=== PATIENT | female | born 1955 | race Caucasian/White ===

== ENCOUNTER 2023-03-24 12:33 | Outpatient (CLI) | payer MEDICARE, SELFPAY | END 2023-03-24 12:34 | disposition home or self-care (01) | LOC: AMB 03-26 10:10 | PROVIDERS: PCP Family Medicine; Visit Provider Family Medicine | DX: R53.1 Weakness (principal) | CPT/HCPCS: A0998 ==

== ENCOUNTER 2023-03-28 12:58 | Observation (INO) | payer MEDICARE, SELFPAY ==
[2023-03-28] VITALS (11 sets, daily range): BP systolic 129–157; BP diastolic 75–104; PULSE 91–99; RESP 20–24; TEMP 36.3–36.8; O2SAT 93–97
--- NOTE | 2023-03-28 13:15 | ED_ITS ---
HPI - General Adult General Chief complaint: Skin/Abscess/Foreign Body Stated complaint: tailbone pain Time Seen by Provider: 03/28/23 13:01 Source: patient Mode of arrival: EMS Limitations: no limitations History of Present Illness HPI narrative: 67-year-old female with a past medical history significant for morbid obesity, chronic venous stasis ulcerations, history of osteomyelitis of the coccyx, anxiety, chronic pain syndrome on chronic morphine therapy, bilateral lower extremity lymphedema presenting today for buttocks pain. She states that the pain is been present for about a month but in the last couple days has become unbearable. She denies fevers or chills. No nausea or vomiting. No changes in her bowel movements. No urinary symptoms. She has not fallen. She denies any trauma to the area. Related Data Home Medications Medication Instructions Recorded Confirmed acetaminophen 500 mg capsule 1,000 mg PO TID PRN 03/28/23 03/28/23 ammonium lactate 12 % lotion (Skin 1 applic topical BID PRN 03/28/23 03/28/23 Treatment) ascorbic acid (vitamin C) 1,000 mg 1 g PO DAILY 03/28/23 03/28/23 capsule cholecalciferol (vitamin D3) 1,250 1,250 mcg PO 2XW 03/28/23 03/28/23 mcg (50,000 unit) capsule (Weekly-D) citalopram 20 mg tablet 20 mg PO DAILY 03/28/23 03/28/23 diphenhydramine HCl 25 mg capsule 25 mg PO Q6H PRN 03/28/23 03/28/23 (Allergy (diphenhydramine)) ferrous sulfate 325 mg (65 mg 325 mg PO DAILY 03/28/23 03/28/23 iron) tablet,delayed release furosemide 20 mg tablet 20 mg PO DAILY 03/28/23 03/28/23 lidocaine 4 % topical cream 1 applic topical DAILY PRN 03/28/23 03/28/23 dressing change lorazepam 0.5 mg tablet 0.5 mg PO BID PRN 03/28/23 03/28/23 morphine 15 mg tablet,extended 15 mg PO BID PRN 03/28/23 03/28/23 release nystatin 100,000 unit/gram topical 1 applic topical BID 03/28/23 03/28/23 powder ([facility]) ondansetron 4 mg disintegrating 4 mg PO Q8H PRN 03/28/23 03/28/23 tablet polyethylene glycol 3350 17 17 g PO DAILY PRN 03/28/23 03/28/23 gram/dose oral powder (Miralax) potassium chloride 10 mEq 10 meq PO DAILY 03/28/23 03/28/23 tablet,extended release sennosides 8.6 mg capsule (senna) 8.6 - 17.2 mg PO DAILY PRN 03/28/23 03/28/23 silver sulfadiazine 1 % topical 1 applic topical DAILY 03/28/23 03/28/23 cream ([facility]) triamcinolone acetonide 0.1 % 1 applic topical BID 03/28/23 03/28/23 topical cream Allergies Allergy/AdvReac Type Severity Reaction Status Date / Time amoxicillin Allergy Unknown Verified 03/28/23 13:05 buspirone [From BuSpar] Allergy Unknown Verified 03/28/23 13:16 cephalexin [From Keflex] Allergy Unknown Verified 03/28/23 13:15 doxycycline Allergy Unknown Verified 03/28/23 13:15 latex Allergy Unknown Verified 03/28/23 13:15 lisinopril Allergy Unknown Verified 03/28/23 13:15 Penicillins Allergy Unknown Verified 03/28/23 13:15 Sulfa (Sulfonamide Allergy Unknown Verified 03/28/23 13:15 Antibiotics) Review of Systems Status of ROS: Reports: 10 or more systems reviewed and unremarkable except as noted in History and below [facility] Medical History (Updated 03/28/23 @ 20:55 by Ann Grewal MD) Stage IV pressure ulcer of sacral region ?L89.154 - Pressure ulcer of sacral region, stage 4 (ICD-10) Chronic pain ?G89.29 - Other chronic pain (ICD-10) Recurrent depression ?F33.9 - Major depressive disorder, recurrent, unspecified (ICD-10) Panic attacks ?F41.0 - Panic disorder [episodic paroxysmal anxiety] (ICD-10) Insomnia ?G47.00 - Insomnia, unspecified (ICD-10) Restless legs syndrome ?G25.81 - Restless legs syndrome (ICD-10) Urge incontinence of urine ?N39.41 - Urge incontinence (ICD-10) Controlled substance agreement signed ?Z79.899 - Other longterm (current) drug therapy (ICD-10) Vitamin D deficiency ?E55.9 - Vitamin D deficiency, unspecified (ICD-10) MRSA (methicillin resistant staph aureus) culture positive (~12/05/15) ?Z22.322 - Carrier or suspected carrier of Methicillin resistant Staphylococcus aureus (ICD-10) Left ureteral stone (~12/11/15) ?N20.1 - Calculus of ureter (ICD-10) CKD (chronic kidney disease), stage III ?N18.30 - Chronic kidney disease, stage 3 unspecified (ICD-10) Acute osteomyelitis of coccyx (~08/2015) ?M46.28 - Osteomyelitis of vertebra, sacral and sacrococcygeal region (ICD- 10) Ulcers of both lower extremities with fat layer exposed ?L97.912 - Non-pressure chronic ulcer of unspecified part of right lower leg with fat layer exposed (ICD-10) ?L97.922 - Non-pressure chronic ulcer of unspecified part of left lower leg with fat layer exposed (ICD-10) Iron deficiency 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 ?D50.1 - Sideropenic dysphagia (ICD-10) Acute kidney injury (~01/2015) ?N17.9 - Acute kidney failure, unspecified (ICD-10) Dysthymia ?F34.1 - Dysthymic disorder (ICD-10) Bilateral leg weakness ?R29.898 - Other symptoms and signs involving the musculoskeletal system (ICD-10) Chronic acquired lymphedema ?I89.0 - Lymphedema, not elsewhere classified (ICD-10) Chronic, continuous use of opioids ?F11.90 - Opioid use, unspecified, uncomplicated (ICD-10) Venous stasis ulcer of thigh with fat layer exposed ?I83.001 - Varicose veins of unspecified lower extremity with ulcer of thigh (ICD-10) ?L97.102 - Non-pressure chronic ulcer of unspecified thigh with fat layer exposed (ICD-10) Elevated TSH ?R79.89 - Other specified abnormal findings of blood chemistry (ICD-10) DJD (degenerative joint disease) of knee ?M17.9 - Osteoarthritis of knee, unspecified (ICD-10) Morbid obesity ?E66.01 - Morbid (severe) obesity due to excess calories (ICD-10) Essential hypertension ?I10 - Essential (primary) hypertension (ICD-10) Surgical History (Updated 03/28/23 @ 16:34 by Rocio Jorge MD) S/P debridement ?Z98.890 - Other specified postprocedural states (ICD-10) S/P ureteral stent placement ?Z96.0 - Presence of urogenital implants (ICD-10) Family History (Updated 03/28/23 @ 16:36 by Rocio Jorge MD) Brother Diabetes Cardiovascular disease Father Cardiovascular disease High blood pressure Sister High cholesterol High blood pressure Mother Dementia Social History (Updated 03/28/23 @ 17:27 by Rocio Jorge MD) Narrative: Lives independently. 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 Smoked an average of 0.3 packs per day for 2 years, quit in 1970. Denies alcohol use. Denies recreational drug use. Wishes to be full code. What is your current living situation?: I presently have a place to live Problems where you live: no known problems Problems where you live details: none In the past 12 months, utilities in danger of being shut off: no In past 12 months, lack of transportation kept you from medical appts, meetings, work, or getting things needed for daily living: yes In the past 12 mos, have been you worried that your food would run out before you had money to buy more?: never true In the past 12 mos, the food you bought just didn't last and you didn't have money to buy more?: never true Highest level of school completed/degree received: 11th grade Smoking Status: Unknown if ever smoked How often do you have a drink containing alcohol: never AUDIT-C Alcohol total score: 0 Non-prescribed substance use: denies use Caffeine: No How often does anyone, including family, friends and others, physically hurt you : never How often does anyone, including family, friends and others, insult or talk down to you: sometimes How often does anyone, including family, friends and others, threaten you with harm: never How often does anyone, including family, friends and others, scream or curse at you: sometimes service: No Exam Narrative: Exam Narrative: Morbidly obese, well-developed patient, tearful. Alert and oriented. Answers questions appropriately. Mood is erratic - patient is tearful 1 minute and laughing next. Patient speaks in full sentences without needing to catch their breath. Patient repeats her questions multiple times. HEENT: Normocephalic atraumatic. Pupils are equally round reactive to light. Extraocular muscles are intact. Conjunctivae are moist without any icterus noted. Moist mucous membranes. Cardiovascular: Heart is regular rate and rhythm Lungs: Clear to auscultation bilaterally. Patient takes deep breaths without any discomfort. Abdomen: Soft and nontender. Very large pannus. Extremities: Bilateral lower extremities show [place] lymphedema and extremely dry and flaky skin. Patient has stage IV ulcers on bilateral calves. Some necrotic tissue present. : Patient has stage I pressure ulcer over the majority of the buttocks. Several areas with stage II pressure ulcers. Patient has a stage IV ulcer at the coccyx were a large hole is present. There is no drainage from this area. I do not see any evidence of acute infection. Patient has on depends that her soaked in urine. The skin in the entire area is moist and macerated. Const: Vital Signs, click to edit/add: Vital Signs - 24 hr 03/28/23 13:02 03/28/23 13:57 03/28/23 14:00 Temperature 97.3 F L Pulse Rate 91 99 Pulse Rate [Pulse Oximeter] 94 Respiratory Rate 24 Blood Pressure Blood Pressure [Ri ght Upper Arm] 145/104 H Pulse Oximetry 97 95 96 Oxygen Delivery Me thod Room Air Room Air 03/28/23 14:01 03/28/23 14:15 03/28/23 14:56 Temperature Pulse Rate 99 97 98 Pulse Rate [Pulse Oximeter] Respiratory Rate Blood Pressure 129/85 157/85 H Blood Pressure [Ri ght Upper Arm] Pulse Oximetry 94 93 96 Oxygen Delivery Me thod 03/28/23 14:57 03/28/23 15:00 03/28/23 15:02 Temperature Pulse Rate 98 98 99 Pulse Rate [Pulse Oximeter] Respiratory Rate Blood Pressure 155/94 H Blood Pressure [Ri ght Upper Arm] Pulse Oximetry 96 96 96 Oxygen Delivery Me thod 03/28/23 15:15 Temperature Pulse Rate 97 Pulse Rate [Pulse Oximeter] Respiratory Rate Blood Pressure Blood Pressure [Ri ght Upper Arm] Pulse Oximetry 96 Oxygen Delivery Me thod Course Course ED Course: Patient is cleaned by nursing staff. Labs were drawn: Hemoglobin low at 9.4, in no elevated white cell count. Electrolytes are within normal limits. Normal lactate at 1.2. CRP elevated at 6.5. Abdomen pelvis CT is done to assess how deep patient's ulcers are. CT does not show any evidence of deep infection. Shows area of potential panniculitis. Vital Signs Vital signs: Initial Vital Signs Temperature 97.3 F L 03/28/23 13:02 Temperature Source Temporal Artery Scan 03/28/23 13:02 Pulse Rate 94 03/28/23 13:02 Respiratory Rate 24 03/28/23 13:02 Blood Pressure 145/104 H 03/28/23 13:02 Blood Pressure Mean 117 H 03/28/23 13:02 Blood Pressure Position Sitting 03/28/23 13:02 Pulse Oximetry 97 03/28/23 13:02 Oxygen Delivery Method Room Air 03/28/23 13:02 Vital Signs Temperature 97.3 F L 03/28/23 13:02 Pulse Rate 94 03/28/23 13:02 Respiratory Rate 24 03/28/23 13:02 Blood Pressure 145/104 H 03/28/23 13:02 Pulse Oximetry 97 03/28/23 13:02 Oxygen Delivery Method Room Air 03/28/23 13:02 Temperature 98.3 F 03/28/23 17:25 Pulse Rate 94 03/28/23 17:25 Respiratory Rate 20 03/28/23 17:25 Blood Pressure 135/75 03/28/23 17:25 Pulse Oximetry 94 03/28/23 17:25 Oxygen Delivery Method Room Air 03/28/23 17:25 Medical Decision Making MDM Narrative Medical decision making narrative: 67-year-old female with multiple decubitus pressure ulcers. Discussed the patient with , who recommended debridement and cleaning of multiple ulcers in the OR. I discussed this at length with the patient today. We discussed discharge versus clean out in the OR. At this point patient needs of 1 person assist even get out of the chair and she tells me that she can not get out of the car when she gets home. I discussed that perhaps the best course for be for her to stay the night in the hospital and she states that she would like that very much because she ?does not get pampered that often?. We discussed the clean out in the OR. Patient is in agreement with this plan had no other questions. Patient will be admitted afterwards. Medical Records Medical records reviewed: Yes I reviewed the patient's medical records Lab Data Lab results reviewed: Yes I reviewed the patient's lab results Labs: Lab Results 03/28/23 Range/Units 13:45 WBC 6.91 (4.50-11.00) K/uL RBC 3.89 L (4.00-5.20) m/uL Hgb 9.4 L (12.0-16.0) gm/dL Hct 33.0 (33.0-51.0) % MCV 85 (80-100) fL MCH 24 L (26-34) pg MCHC 29 L (32-36) gm/dL RDW Coeff of Vilma 16.2 H (11.5-15.5) % Plt Count 316 (140-440) K/uL Neut % (Auto) 69.3 (42.0-72.0) % Lymph % (Auto) 19.5 L (20-44) % Towns % (Auto) 6.5 (0.0-11.0) % Eos % (Auto) 3.6 (0.0-7.0) % Baso % (Auto) 0.1 (0.0-3.0) % Neut # (Auto) 4.78 (1.7-7.0) K/uL Lymph # (Auto) 1.30 (0.90-2.90) K/uL Towns # (Auto) 0.40 (0.00-0.90) K/UL Eos # (Auto) 0.25 (0.00-0.50) K/uL Baso # (Auto) 0.01 (0.00-0.30) K/uL Abs Immat Gran (auto) 0.07 (0.00-0.30) K/uL Imm/Tot Granulo (auto) 1.0 % ESR 74 H (2-20) mm/hr Sodium 137 (135-149) mmol/L Potassium 4.7 (3.6-5.1) mmol/L Chloride 101 (96-114) mmol/L Carbon Dioxide 28 (20-32) mmol/L Anion Gap 8 (7-15) mEq/L BUN 15 (7-30) mg/dL Creatinine 1.1 (0.5-1.5) mg/dL Estimated GFR 55 ml/min Glucose 100 (60-115) mg/dL Lactate 1.2 (0.5-1.9) mmol/L Calcium 8.7 (8.4-10.6) mg/dL Total Bilirubin 0.5 (0.1-1.5) mg/dL Direct Bilirubin 0.2 (0.0-0.5) mg/dL AST 26 (12-35) U/L ALT 9 (4-35) U/L Alkaline Phosphatase 83 (40-150) U/L C-Reactive Protein 6.5 H (0.5-1.0) mg/dL Total Protein 8.6 H (6.0-8.3) g/dL Albumin 3.8 (3.3-5.0) g/dL Imaging Data CT scan - abdomen: Attestation: I have reviewed the pertinent imaging results. Radiologist's impression: BUTTOCKS INFECTION, ULCERATION TECHNIQUE: CT abdomen and pelvis acquired with 135 cc Isovue 370 IV contrast. COMPARISON: None. FINDINGS: Lower chest: The visualized lower lungs are aerated. No pleural or pericardial effusion. ABDOMEN: Liver: Exclusion of the liver dome. Normal enhancement. Gallbladder and biliary: Normal gallbladder without radiopaque stone. Normal caliber bile ducts. Spleen: Normal size and enhancement. Pancreas: Normal enhancement without peripancreatic inflammatory changes or ductal dilatation. Adrenal glands: Normal adrenal glands. Kidneys and ureters: Normal enhancement. No radio-opaque calculi. No hydroureteronephrosis. Likely peripelvic cysts. 2 millimeter nonobstructing left renal stone. GI tract: The stomach is relatively decompressed. Normal caliber small and large bowel loops. Appendix is not definitively visualized. Colonic diverticulosis without diverticulitis portions of the colon are excluded on the superior field view. Vascular structures: Normal caliber abdominal aorta. Lymph nodes: Bilateral inguinal and pelvic sidewall lymphadenopathy. Peritoneum: No free air, free fluid, or focal drainable fluid collection. PELVIS: Genitourinary system: Urinary bladder is decompressed. Age-appropriate uterus. SKELETAL STRUCTURES AND SOFT TISSUES: No discrete subcutaneous gas or focal drainable subcutaneous fluid collection in the region of the buttocks. No definite gluteal region subcutaneous inflammatory stranding. Left lower anterior subcutaneous edema/stranding abutting the patient`s pannus, axial images 101- 154, likely panniculitis. Lumbar spondylosis. IMPRESSION: 1. No discrete subcutaneous gas or focal drainable subcutaneous fluid collection in the region of the buttocks. No definite gluteal region subcutaneous inflammatory stranding. 2. Left lower anterior subcutaneous edema/stranding abutting the patient`s pannus, likely panniculitis. 3. Nonobstructing left-sided nephrolithiasis. Discharge Plan Discharge Clinical Impression: Pressure ulcer Patient Disposition: Admitted As Observation Condition: Unchanged Activity Level: No Restrictions Discharge Diet: Regular
--- NOTE | 2023-03-28 13:23 | CRLHL7_ITS ---
For Patients: As a result of the Century Cures Act, medical imaging exams and procedure reports are released immediately into your electronic medical record. You may view this report before your referring provider. If you have questions, please contact your health care provider. INDICATION: BUTTOCKS INFECTION, ULCERATION TECHNIQUE: CT abdomen and pelvis acquired with 135 cc Isovue 370 IV contrast. COMPARISON: None. FINDINGS: Lower chest: The visualized lower lungs are aerated. No pleural or pericardial effusion. ABDOMEN: Liver: Exclusion of the liver dome. Normal enhancement. Gallbladder and biliary: Normal gallbladder without radiopaque stone. Normal caliber bile ducts. Spleen: Normal size and enhancement. Pancreas: Normal enhancement without peripancreatic inflammatory changes or ductal dilatation. Adrenal glands: Normal adrenal glands. Kidneys and ureters: Normal enhancement. No radio-opaque calculi. No hydroureteronephrosis. Likely peripelvic cysts. 2 millimeter nonobstructing left renal stone. GI tract: The stomach is relatively decompressed. Normal caliber small and large bowel loops. Appendix is not definitively visualized. Colonic diverticulosis without diverticulitis portions of the colon are excluded on the superior field view. Vascular structures: Normal caliber abdominal aorta. Lymph nodes: Bilateral inguinal and pelvic sidewall lymphadenopathy. Peritoneum: No free air, free fluid, or focal drainable fluid collection. PELVIS: Genitourinary system: Urinary bladder is decompressed. Age-appropriate uterus. SKELETAL STRUCTURES AND SOFT TISSUES: No discrete subcutaneous gas or focal drainable subcutaneous fluid collection in the region of the buttocks. No definite gluteal region subcutaneous inflammatory stranding. Left lower anterior subcutaneous edema/stranding abutting the patient`s pannus, axial images 101-154, likely panniculitis. Lumbar spondylosis. IMPRESSION: 1. No discrete subcutaneous gas or focal drainable subcutaneous fluid collection in the region of the buttocks. No definite gluteal region subcutaneous inflammatory stranding. 2. Left lower anterior subcutaneous edema/stranding abutting the patient`s pannus, likely panniculitis. 3. Nonobstructing left-sided nephrolithiasis. Please note that all CT scans at this facility use dose modulation, iterative reconstruction, and/or weight-based dosing when appropriate to reduce radiation dose to as low as reasonably achievable. Dictated by Camacho Liao MD @ 03/28/2023 3:19:22 PM (Electronically Signed)
[2023-03-28 13:52] LABS: Lactate* 1.2 mmol/L (0.5-1.9)
[2023-03-28 13:56] LABS: Basophils Absolute Auto 0.01 K/uL (0.00-0.30); Basophils Percent Auto 0.1 % (0.0-3.0); Eosinophils Absolute Auto 0.25 K/uL (0.00-0.50); Eosinophils Percent Auto 3.6 % (0.0-7.0); Hemoglobin* 9.4 gm/dL (12.0-16.0); Immature Granulocytes Abs Auto 0.07 K/uL (0.00-0.30); Lymphocytes Percent Auto 19.5 % (20-44); Mean Corpuscular HGB Conc 29 gm/dL (32-36); Mean Corpuscular Hemoglobin 24 pg (26-34); Mean Corpuscular Volume 85 fL (80-100); Monocytes Percent Auto 6.5 % (0.0-11.0); Neutrophils Absolute Auto 4.78 K/uL (1.7-7.0); Neutrophils Percent Auto 69.3 % (42.0-72.0); Platelet Count* 316 K/uL (140-440); RDW Coefficient of Variation % 16.2 % (11.5-15.5); Red Blood Count 3.89 m/uL (4.00-5.20); White Blood Count* 6.91 K/uL (4.50-11.00)
[2023-03-28 13:57] LABS: Slide Review Reflex No
[2023-03-28] MEDS: HYDROmorphone 0.5 mg/0.5 ml inj IVP (13:58)
[2023-03-28 14:09] LABS: Albumin* 3.8 g/dL (3.3-5.0)
[2023-03-28 14:10] LABS: Chloride* 101 mmol/L (96-114); Potassium* 4.7 mmol/L (3.6-5.1); Sodium* 137 mmol/L (135-149)
[2023-03-28 14:13] LABS: Alanine Aminotransferase* 9 U/L (4-35); Alkaline Phosphatase* 83 U/L (40-150); Anion Gap 8 mEq/L (7-15); Aspartate Amino Transferase* 26 U/L (12-35); Bilirubin Direct* 0.2 mg/dL (0.0-0.5); Bilirubin Total* 0.5 mg/dL (0.1-1.5); Carbon Dioxide* 28 mmol/L (20-32); Creatinine* 1.1 mg/dL (0.5-1.5); Estimated Glomerular Filt Rate 55 ml/min; Total Protein* 8.6 g/dL (6.0-8.3)
[2023-03-28 14:14] LABS: Blood Urea Nitrogen* 15 mg/dL (7-30); Calcium* 8.7 mg/dL (8.4-10.6); Glucose* 100 mg/dL (60-115)
[2023-03-28 14:15] LABS: C Reactive Protein* 6.5 mg/dL (0.5-1.0)
[2023-03-28 14:33] LABS: Erythrocyte SedimentationRate* 74 mm/hr (2-20)
--- NOTE | 2023-03-28 15:44 | ED.NURSE ---
in room to assess pt's buttocks and bilateral legs. Venetian Blind Worker at bedside. Pt's depends full of purulent fluid. Pt cleaned and bacitracin and new depends placed. Large tunneling wound observed on pt's buttocks. Ulcerated wounds on pt's legs bilaterally, leaking yellow purulent fluid. Hospital socks placed on pt.
--- NOTE | 2023-03-28 16:25 | ED.NURSE ---
Unable to obtain UA. nut picker updated that UA has not yet been obtained.
--- NOTE | 2023-03-28 16:49 | PM.IMHP1 ---
Hospitalist- H&P: HPI History of Present Illness Time Seen by Provider: 16:49 Date Seen: 03/28/23 Chief complaint: tailbone pain Narrative: Gracia Louise is a 67 year old female with a past medical history significant for stage IV pressure ulcer of the coccyx, chronic venous stasis ulcers of the legs, morbid obesity anxiety, chronic pain, and bilateral lower extremity lymphedema. She has chronic pain for which she takes morphine ER and this was decreased in September. For the past month she feels the pain in her sacrum has become worse and it has been so bad over the last 2 days that she can not do anything. He denies any injury. She is chronically incontinent of urine and has trouble wearing pull-ups because of a latex allergy. She denies any fevers or chills. She says she is very crabby because of the extreme pain that she is in. Chest pain or shortness of breath. She sees wound care at [place] once weekly, but has not been able to make it to the last 4 appointments because it is getting more difficult for her to ambulate and also her rides have been coming late and if she is late up there they will not see her. She used to have home care to help with dressing changes, but a couple months ago was told that she cannot have home care if she is also going to wound care at [facility], and then home health was discontinued. She says she only wants debridement and does not want anyone to call it surgery. She says at [facility] she does not receive any anesthesia other than local and she is hesitant to get anything other than local anesthesia here. Review of Systems Status of ROS: Reports: 10 or more systems reviewed and unremarkable except as noted in History and below [facility] Medical History (Updated 03/28/23 @ 17:44 by Rocio Jorge MD) Stage IV pressure ulcer of sacral region ?L89.154 - Pressure ulcer of sacral region, stage 4 (ICD-10) Chronic pain ?G89.29 - Other chronic pain (ICD-10) Recurrent depression ?F33.9 - Major depressive disorder, recurrent, unspecified (ICD-10) Panic attacks ?F41.0 - Panic disorder [episodic paroxysmal anxiety] (ICD-10) Insomnia ?G47.00 - Insomnia, unspecified (ICD-10) Restless legs syndrome ?G25.81 - Restless legs syndrome (ICD-10) Urge incontinence of urine ?N39.41 - Urge incontinence (ICD-10) Controlled substance agreement signed ?Z79.899 - Other fpc (current) drug therapy (ICD-10) Vitamin D deficiency ?E55.9 - Vitamin D deficiency, unspecified (ICD-10) MRSA (methicillin resistant staph aureus) culture positive (~12/05/15) ?Z22.322 - Carrier or suspected carrier of Methicillin resistant Staphylococcus aureus (ICD-10) Left ureteral stone (~12/11/15) ?N20.1 - Calculus of ureter (ICD-10) CKD (chronic kidney disease), stage III ?N18.30 - Chronic kidney disease, stage 3 unspecified (ICD-10) Acute osteomyelitis of coccyx (~08/2015) ?M46.28 - Osteomyelitis of vertebra, sacral and sacrococcygeal region (ICD-10) Ulcers of both lower extremities with fat layer exposed ?L97.912 - Non-pressure chronic ulcer of unspecified part of right lower leg with fat layer exposed (ICD-10) ?L97.922 - Non-pressure chronic ulcer of unspecified part of left lower leg with fat layer exposed (ICD-10) Iron deficiency 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 ?D50.1 - Sideropenic dysphagia (ICD-10) Acute kidney injury (~01/2015) ?N17.9 - Acute kidney failure, unspecified (ICD-10) Dysthymia ?F34.1 - Dysthymic disorder (ICD-10) Bilateral leg weakness ?R29.898 - Other symptoms and signs involving the musculoskeletal system (ICD-10) Chronic acquired lymphedema ?I89.0 - Lymphedema, not elsewhere classified (ICD-10) Chronic, continuous use of opioids ?F11.90 - Opioid use, unspecified, uncomplicated (ICD-10) Venous stasis ulcer of thigh with fat layer exposed ?I83.001 - Varicose veins of unspecified lower extremity with ulcer of thigh (ICD-10) ?L97.102 - Non-pressure chronic ulcer of unspecified thigh with fat layer exposed (ICD-10) Elevated TSH ?R79.89 - Other specified abnormal findings of blood chemistry (ICD-10) DJD (degenerative joint disease) of knee ?M17.9 - Osteoarthritis of knee, unspecified (ICD-10) Morbid obesity ?E66.01 - Morbid (severe) obesity due to excess calories (ICD-10) Essential hypertension ?I10 - Essential (primary) hypertension (ICD-10) Surgical History (Updated 03/28/23 @ 16:34 by Rocio Jorge MD) S/P debridement ?Z98.890 - Other specified postprocedural states (ICD-10) S/P ureteral stent placement ?Z96.0 - Presence of urogenital implants (ICD-10) Family History (Updated 03/28/23 @ 16:36 by Rocio Jorge MD) Brother Diabetes Cardiovascular disease Father Cardiovascular disease High blood pressure Sister High cholesterol High blood pressure Mother Dementia Social History (Updated 03/28/23 @ 17:27 by Rocio Jorge MD) Narrative: Lives independently. 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 Smoked an average of 0.3 packs per day for 2 years, quit in 1970. Denies alcohol use. Denies recreational drug use. Wishes to be full code. Smoking Status: Unknown if ever smoked Meds Home Medications and Allergies Home Medications Medication Instructions Recorded Confirmed Type acetaminophen 500 mg capsule 1,000 mg PO TID PRN 03/28/23 03/28/23 History ammonium lactate 12 % lotion (Skin 1 applic topical BID PRN 03/28/23 03/28/23 History Treatment) ascorbic acid (vitamin C) 1,000 mg 1 g PO DAILY 03/28/23 03/28/23 History capsule cholecalciferol (vitamin D3) 1,250 1,250 mcg PO 2XW 03/28/23 03/28/23 History mcg (50,000 unit) capsule (Weekly-D) citalopram 20 mg tablet 20 mg PO DAILY 03/28/23 03/28/23 History diphenhydramine HCl 25 mg capsule 25 mg PO Q6H PRN 03/28/23 03/28/23 History (Allergy (diphenhydramine)) ferrous sulfate 325 mg (65 mg 325 mg PO DAILY 03/28/23 03/28/23 History iron) tablet,delayed release furosemide 20 mg tablet 20 mg PO DAILY 03/28/23 03/28/23 History lidocaine 4 % topical cream 1 applic topical DAILY PRN 03/28/23 03/28/23 History dressing change lorazepam 0.5 mg tablet 0.5 mg PO BID PRN 03/28/23 03/28/23 History morphine 15 mg tablet,extended 15 mg PO BID PRN 03/28/23 03/28/23 History release nystatin 100,000 unit/gram topical 1 applic topical BID 03/28/23 03/28/23 History powder (Nyamyc) ondansetron 4 mg disintegrating 4 mg PO Q8H PRN 03/28/23 03/28/23 History tablet polyethylene glycol 3350 17 17 g PO DAILY PRN 03/28/23 03/28/23 History gram/dose oral powder (Miralax) potassium chloride 10 mEq 10 meq PO DAILY 03/28/23 03/28/23 History tablet,extended release sennosides 8.6 mg capsule (senna) 8.6 - 17.2 mg PO DAILY PRN 03/28/23 03/28/23 History silver sulfadiazine 1 % topical 1 applic topical DAILY 03/28/23 03/28/23 History cream (SSD) triamcinolone acetonide 0.1 % 1 applic topical BID 03/28/23 03/28/23 History topical cream Allergies Allergy/AdvReac Type Severity Reaction Status Date / Time amoxicillin Allergy Unknown Verified 03/28/23 13:05 buspirone [From BuSpar] Allergy Unknown Verified 03/28/23 13:16 cephalexin [From Keflex] Allergy Unknown Verified 03/28/23 13:15 doxycycline Allergy Unknown Verified 03/28/23 13:15 latex Allergy Unknown Verified 03/28/23 13:15 lisinopril Allergy Unknown Verified 03/28/23 13:15 Penicillins Allergy Unknown Verified 03/28/23 13:15 Sulfa (Sulfonamide Allergy Unknown Verified 03/28/23 13:15 Antibiotics) Exam Narrative: Exam Narrative: General: No acute distress. Awake alert oriented x3. Morbidly obese. HEENT: Normocephalic atraumatic, pupils equally round and reactive to light and accommodation. Oropharynx clear. Mucous membranes are moist. No cervical lymphadenopathy, thyromegaly or carotid bruits. No JVD. Cardiovascular: Regular rate and rhythm. No murmurs, gallops, or rubs. Chest: No increased work of breathing. Clear to auscultation bilaterally. No crackles or wheezes. Abdomen: Bowel sounds present. Soft, nondistended, nontender. No hepatosplenomegaly or masses. Extremities: Extensive chronic lymphedema both lower extremities, large healed ulcer in the upper right medial thigh, large hand-sized stage III ulcers of both calves, right greater than left. No cyanosis or clubbing. Skin: As above. I was not able to visualize the sacrum because she is in the chair and about to go to surgery, so I deferred that. I saw pictures that Dr. Gonzáles took of the sacrum in the ER today. She has macerated skin with multiple deep, unstageable ulcers and a deep stage IV coccyx ulcer. Const: Vital Signs, click to edit/add: Vital Signs - 24 hr 03/28/23 13:02 03/28/23 13:57 03/28/23 14:00 Temperature 97.3 F L Pulse Rate 91 99 Pulse Rate [Pulse Oximeter] 94 Respiratory Rate 24 Blood Pressure Blood Pressure [Ri ght Upper Arm] 145/104 H Pulse Oximetry 97 95 96 Oxygen Delivery Me thod Room Air Room Air 03/28/23 14:01 03/28/23 14:15 03/28/23 14:56 Temperature Pulse Rate 99 97 98 Pulse Rate [Pulse Oximeter] Respiratory Rate Blood Pressure 129/85 157/85 H Blood Pressure [Ri ght Upper Arm] Pulse Oximetry 94 93 96 Oxygen Delivery Me thod 03/28/23 14:57 03/28/23 15:00 03/28/23 15:02 Temperature Pulse Rate 98 98 99 Pulse Rate [Pulse Oximeter] Respiratory Rate Blood Pressure 155/94 H Blood Pressure [Ri ght Upper Arm] Pulse Oximetry 96 96 96 Oxygen Delivery Me thod 03/28/23 15:15 Temperature Pulse Rate 97 Pulse Rate [Pulse Oximeter] Respiratory Rate Blood Pressure Blood Pressure [Ri ght Upper Arm] Pulse Oximetry 96 Oxygen Delivery Me thod Hospitalist - H&P: Result Labs Labs: Short CBC 03/28/23 Range/Units 13:45 WBC 6.91 (4.50-11.00) K/uL Hgb 9.4 L (12.0-16.0) gm/dL Hct 33.0 (33.0-51.0) % Plt Count 316 (140-440) K/uL BMP 10/15/23 13:45 Sodium 137 Potassium 4.7 Chloride 101 Carbon Dioxide 28 BUN 15 Creatinine 1.1 Glucose 100 Calcium 8.7 Liver Function 03/28/23 Range/Units 13:45 Total Bilirubin 0.5 (0.1-1.5) mg/dL Direct Bilirubin 0.2 (0.0-0.5) mg/dL AST 26 (12-35) U/L ALT 9 (4-35) U/L Alkaline Phosphatase 83 (40-150) U/L Albumin 3.8 (3.3-5.0) g/dL Ordering Physician: Ann Grewal M.D. Date of Service: 03/28/23 Procedure(s): CT abdomen pelvis w con Accession Number(s): [id number] cc: Blade Monsalve M.D.; Ann Grewal M.D.~ For Patients: As a result of the Cures Act, medical imaging exams and procedure reports are released immediately into your electronic medical record. You may view this report before your referring provider. If you have questions, please contact your health care provider. INDICATION: BUTTOCKS INFECTION, ULCERATION TECHNIQUE: CT abdomen and pelvis acquired with 135 cc Isovue 370 IV contrast. COMPARISON: None. FINDINGS: Lower chest: The visualized lower lungs are aerated. No pleural or pericardial effusion. ABDOMEN: Liver: Exclusion of the liver dome. Normal enhancement. Gallbladder and biliary: Normal gallbladder without radiopaque stone. Normal caliber bile ducts. Spleen: Normal size and enhancement. Pancreas: Normal enhancement without peripancreatic inflammatory changes or ductal dilatation. Adrenal glands: Normal adrenal glands. Kidneys and ureters: Normal enhancement. No radio-opaque calculi. No hydroureteronephrosis. Likely peripelvic cysts. 2 millimeter nonobstructing left renal stone. GI tract: The stomach is relatively decompressed. Normal caliber small and large bowel loops. Appendix is not definitively visualized. Colonic diverticulosis without diverticulitis portions of the colon are excluded on the superior field view. Vascular structures: Normal caliber abdominal aorta. Lymph nodes: Bilateral inguinal and pelvic sidewall lymphadenopathy. Peritoneum: No free air, free fluid, or focal drainable fluid collection. PELVIS: Genitourinary system: Urinary bladder is decompressed. Age-appropriate uterus. SKELETAL STRUCTURES AND SOFT TISSUES: No discrete subcutaneous gas or focal drainable subcutaneous fluid collection in the region of the buttocks. No definite gluteal region subcutaneous inflammatory stranding. Left lower anterior subcutaneous edema/stranding abutting the patient`s pannus, axial images 101-154, likely panniculitis. Lumbar spondylosis. IMPRESSION: 1. No discrete subcutaneous gas or focal drainable subcutaneous fluid collection in the region of the buttocks. No definite gluteal region subcutaneous inflammatory stranding. 2. Left lower anterior subcutaneous edema/stranding abutting the patient`s pannus, likely panniculitis. 3. Nonobstructing left-sided nephrolithiasis. Please note that all CT scans at this facility use dose modulation, iterative reconstruction, and/or weight-based dosing when appropriate to reduce radiation dose to as low as reasonably achievable. Dictated by Camacho Liao MD @ 03/28/2023 3:19:22 PM (Electronically Signed) Assessment and Plan Assessment and plan (1) Stage IV pressure ulcer of sacral region: Problem comment: - This is a chronic ulcer for which she has failed outpatient treatment through [place] wound care. 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 - Dr. Gonzáles was consulted through the ER and is planning debridement this evening. Patient has not had anything to eat or drink since 8:30 a.m. - Area did not appear infected per ER provider, WBC is wnl. Pt denies fever or chills. CRP mildly elevated. Will hold off on antibiotics for now and reassess need for these after debridement. Status: Chronic (2) Chronic acquired lymphedema: Status: Chronic (3) Ulcers of both lower extremities with fat layer exposed: Status: Chronic (4) Iron deficiency 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: Problem comment: - per [facility] records: cbc and iron studies twice yearly as per Dr. Sapp of Oncology. we will test in [place] so she does not have to go to [place]. - 07/22/2022 hemoglobin 10 Status: Chronic (5) Chronic, continuous use of opioids: Problem comment: - Per [facility] record: Reduced her MS Contin from 15 mg in the morning and 30 mg in the evening to 15 mg twice daily on 09/14/2022. - In the process of referring her to the pain clinic for chronic pain from this Hill Broderick MD signed electronically ....................09/02/2022 Status: Acute (6) CKD (chronic kidney disease), stage III: Problem comment: - 08/03/2022 creatinine 0.89 - Cr 1.1 today 03/28. Does not appear dehydrated. Monitor. Status: Chronic (7) Morbid obesity: Status: Chronic (8) Essential hypertension: Problem comment: - continue furosemide for HTN and lymphedema/LE edema Status: Chronic
--- NOTE | 2023-03-28 17:45 | P.DS_ITS ---
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 - Dr. Gonzáles was consulted through the ER and is planning debridement this evening. Patient refuses surgery - Area did not appear infected, WBC is wnl. Pt denies fever or chills. CRP mildly elevated. Will hold off on antibiotics for now. Dr. Gonzáles has made recommendations for dressing changes. Have patient f/u with wound clinic and Dr. Broderick this week. (3) Ulcers of both lower extremities with fat layer exposed: Status: Chronic (4) Iron deficiency 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: Status: Chronic Problem details: - per [facility] records: cbc and iron studies twice yearly as per Dr. Sapp of Oncology. we will test in [place] so she does not have to go to [place]. - 07/22/2022 hemoglobin 10 (5) Chronic, continuous use of opioids: Status: Acute Problem details: - Per [facility] record: Reduced her MS Contin from 15 mg in the morning and 30 mg in the evening to 15 mg twice daily on 09/14/2022. - In the process of referring her to the pain clinic for chronic pain from this Hill Broderick MD signed electronically ....................09/02/2022 (6) CKD (chronic kidney disease), stage III: Status: Chronic Problem details: - 08/03/2022 creatinine 0.89 - Cr 1.1 today 03/28. Does not appear dehydrated. F/u in clinic this week. (7) Morbid obesity: Status: Chronic (8) Essential hypertension: Status: Chronic Problem details: - continue furosemide for HTN and lymphedema/LE edema DS: Summary Hospital Course Hospital Course: Gracia Louise is a 67 year old female with a past medical history significant for stage IV pressure ulcer of the coccyx, chronic venous stasis ulcers of the legs, morbid obesity anxiety, chronic pain, and bilateral lower extremity lymphedema. She has chronic pain for which she takes morphine ER and this was decreased in September. For the past month she feels the pain in her sacrum has become worse and it has been so bad over the last 2 days that she can not do anything. He denies any injury. She is chronically incontinent of urine and has trouble wearing pull-ups because of a latex allergy. She denies any fevers or chills. She says she is very crabby because of the extreme pain that she is in. Chest pain or shortness of breath. She sees wound care at [facility] once weekly, but has not been able to make it to the last 4 appointments because it is getting more difficult for her to ambulate and also her rides have been coming late and if she is late up there they will not see her. She used to have home care to help with dressing changes, but a couple months ago was told that she cannot have home care if she is also going to wound care at [facility], and then home health was discontinued. She says she only wants debridement and does not want anyone to call it surgery. She says at [facility] she does not receive any anesthesia other than local and she is hesitant to get anything other than local anesthesia here. Patient refused surgery for debridement. We discussed that there is no medical reason for her to be in the hospital and she desires homegoing. She needs transportation home. She is agreeable to follow up with [facility] and with Dr. Broderick this week. I spoke with Dr. Broderick over the phone to give him an update about this patient. Time Spent with Patient Time attestation: Total time spent providing and/or coordinating discharge services: Exam Narrative: Exam Narrative: see H&P on this date Const: Vital Signs, click to edit/add: Vital Signs - 24 hr 03/28/23 13:02 03/28/23 13:57 03/28/23 14:00 Temperature 97.3 F L Pulse Rate 91 99 Pulse Rate [Pulse Oximeter] 94 Respiratory Rate 24 Blood Pressure Blood Pressure [Ri ght Upper Arm] 145/104 H Pulse Oximetry 97 95 96 Oxygen Delivery Me thod Room Air Room Air 03/28/23 14:01 03/28/23 14:15 03/28/23 14:56 Temperature Pulse Rate 99 97 98 Pulse Rate [Pulse Oximeter] Respiratory Rate Blood Pressure 129/85 157/85 H Blood Pressure [Ri ght Upper Arm] Pulse Oximetry 94 93 96 Oxygen Delivery Me thod 03/28/23 14:57 03/28/23 15:00 03/28/23 15:02 Temperature Pulse Rate 98 98 99 Pulse Rate [Pulse Oximeter] Respiratory Rate Blood Pressure 155/94 H Blood Pressure [Ri ght Upper Arm] Pulse Oximetry 96 96 96 Oxygen Delivery Me thod 03/28/23 15:15 Temperature Pulse Rate 97 Pulse Rate [Pulse Oximeter] Respiratory Rate Blood Pressure Blood Pressure [Ri ght Upper Arm] Pulse Oximetry 96 Oxygen Delivery Me thod DS: Data Data Completed and Pending Completed studies during hospitalization: Ordering Physician: Ann Grewal M.D. Date of Service: 03/28/23 Procedure(s): CT abdomen pelvis w con Accession Number(s): [id number] cc: Blade Monsalve M.D.; Ann Grewal M.D.~ For Patients: As a result of the Cures Act, medical imaging exams and procedure reports are released immediately into your electronic medical record. You may view this report before your referring provider. If you have questions, please contact your health care provider. INDICATION: BUTTOCKS INFECTION, ULCERATION TECHNIQUE: CT abdomen and pelvis acquired with 135 cc Isovue 370 IV contrast. COMPARISON: None. FINDINGS: Lower chest: The visualized lower lungs are aerated. No pleural or pericardial effusion. ABDOMEN: Liver: Exclusion of the liver dome. Normal enhancement. Gallbladder and biliary: Normal gallbladder without radiopaque stone. Normal caliber bile ducts. Spleen: Normal size and enhancement. Pancreas: Normal enhancement without peripancreatic inflammatory changes or ductal dilatation. Adrenal glands: Normal adrenal glands. Kidneys and ureters: Normal enhancement. No radio-opaque calculi. No hydroureteronephrosis. Likely peripelvic cysts. 2 millimeter nonobstructing left renal stone. GI tract: The stomach is relatively decompressed. Normal caliber small and large bowel loops. Appendix is not definitively visualized. Colonic diverticulosis without diverticulitis portions of the colon are excluded on the superior field view. Vascular structures: Normal caliber abdominal aorta. Lymph nodes: Bilateral inguinal and pelvic sidewall lymphadenopathy. Peritoneum: No free air, free fluid, or focal drainable fluid collection. PELVIS: Genitourinary system: Urinary bladder is decompressed. Age-appropriate uterus. SKELETAL STRUCTURES AND SOFT TISSUES: No discrete subcutaneous gas or focal drainable subcutaneous fluid collection in the region of the buttocks. No definite gluteal region subcutaneous inflammatory stranding. Left lower anterior subcutaneous edema/stranding abutting the patient`s pannus, axial images 101-154, likely panniculitis. Lumbar spondylosis. IMPRESSION: 1. No discrete subcutaneous gas or focal drainable subcutaneous fluid collection in the region of the buttocks. No definite gluteal region subcutaneous inflammatory stranding. 2. Left lower anterior subcutaneous edema/stranding abutting the patient`s pannus, likely panniculitis. 3. Nonobstructing left-sided nephrolithiasis. Please note that all CT scans at this facility use dose modulation, iterative reconstruction, and/or weight-based dosing when appropriate to reduce radiation dose to as low as reasonably achievable. Dictated by Camacho Liao MD @ 03/28/2023 3:19:22 PM (Electronically Signed) Labs on day of discharge: Labs from last 24 hours 03/28/23 13:45 WBC 6.91 RBC 3.89 L Hgb 9.4 L Hct 33.0 MCV 85 MCH 24 L MCHC 29 L RDW Coeff of Vilma 16.2 H Plt Count 316 Neut % (Auto) 69.3 Lymph % (Auto) 19.5 L Lamb % (Auto) 6.5 Eos % (Auto) 3.6 Baso % (Auto) 0.1 Neut # (Auto) 4.78 Lymph # (Auto) 1.30 Lamb # (Auto) 0.40 Eos # (Auto) 0.25 Baso # (Auto) 0.01 Abs Immat Gran (auto) 0.07 Imm/Tot Granulo (auto) 1.0 ESR 74 H Sodium 137 Potassium 4.7 Chloride 101 Carbon Dioxide 28 Anion Gap 8 BUN 15 Creatinine 1.1 Estimated GFR 55 Glucose 100 Lactate 1.2 Calcium 8.7 Total Bilirubin 0.5 Direct Bilirubin 0.2 AST 26 ALT 9 Alkaline Phosphatase 83 C-Reactive Protein 6.5 H Total Protein 8.6 H Albumin 3.8 Discharge Plan Discharge Disposition: Home, Self-Care Date of Admission: 03/28/23 16:34 Attending Provider on Discharge: Rocio Jorge Consulting Providers: Poornima Gonzáles Primary Care Provider: Blade Monsalve Condition: Unchanged Anticipated Discharge Date/Time: 03/28/23 18:21 Discharge Medications: Continued lidocaine 4 % cream 1 applic topical DAILY PRN (Reason: dressing change) potassium chloride 10 mEq tablet extended release 10 meq PO DAILY citalopram 20 mg tablet 20 mg PO DAILY lorazepam 0.5 mg tablet 0.5 mg PO BID PRN morphine 15 mg tablet extended release 15 mg PO BID PRN furosemide 20 mg tablet 20 mg PO DAILY nystatin [Nyamyc] 100,000 unit/gram powder 1 applic topical BID ferrous sulfate 325 mg (65 mg iron) tablet,delayed release (DR/EC) 325 mg PO DAILY silver sulfadiazine [SSD] 1 % cream 1 applic topical DAILY ondansetron 4 mg tablet,disintegrating 4 mg PO Q8H PRN acetaminophen 500 mg capsule 1,000 mg PO TID PRN ammonium lactate [Skin Treatment] 12 % lotion 1 applic topical BID PRN ascorbic acid (vitamin C) 1,000 mg capsule 1 g PO DAILY cholecalciferol (vitamin D3) [Weekly-D] 1,250 mcg (50,000 unit) capsule 1,250 mcg PO 2XW diphenhydramine HCl [Allergy (diphenhydramine)] 25 mg capsule 25 mg PO Q6H PRN polyethylene glycol 3350 [Miralax] 17 gram/dose powder 17 g PO DAILY PRN senna 8.6 mg capsule 8.6 - 17.2 mg PO DAILY PRN triamcinolone acetonide 0.1 % cream 1 applic topical BID Discharge Orders: Discharge Order (Routine); Ordered 03/28/23 Ordered By: Rocio Jorge Patient Education: Lymphedema (DC), Chronic Wounds (DC) Additional Instructions: Recommend daily dressing changes of Zinc Oxide to bilateral buttock and stage II buttock ulcers/skin tears, Vashe soaked gauze packing to sacral pressure ulcer with outer Mepilex dressing, Vashe soaked gauze packing to BLE wounds with wrapping of Kerlix and KRISTAL wrap. Recommend patient elevate her legs as much as possible. Patient to follow up with her PCP, Meggan, (with a creatinine) and Wound Center at [facility] this week. Activity Level: No Restrictions Discharge Diet: Regular Follow Up Appointments: Hill Broderick MD [Staff Physician] - Forms: [employer] Info Instructions
--- NOTE | 2023-03-28 17:48 | PM.GSCN ---
History of Present Illness Consult details Date Seen: 03/28/23 Consult date: 03/28/23 Narrative: Patient presented to the emergency department for pain in her tailbone. She states that it has been going on for over a month, but the pain has become worse over the last few days. Denies any fever or chills. Has chronic wounds on her buttock and bilateral legs. On chart review and per patient she goes to the wound center at [facility]. It does look like at one point she was coming her to [facility], but was discharged for non compliance. She currently does not qualify for home health care and does her dressings herself with the assistance of her boyfriend. Patient has a lot of anxiety during our conversation. Comorbidities are morbid obesity, severe lymphedema and chronic opioid use. Review of Systems Status of ROS: Reports: 6 or more systems reviewed and unremarkable except as noted in History and below [facility] Medical History (Updated 03/28/23 @ 18:06 by Rocio Jorge MD) Stage IV pressure ulcer of sacral region ?L89.154 - Pressure ulcer of sacral region, stage 4 (ICD-10) Chronic pain ?G89.29 - Other chronic pain (ICD-10) Recurrent depression ?F33.9 - Major depressive disorder, recurrent, unspecified (ICD-10) Panic attacks ?F41.0 - Panic disorder [episodic paroxysmal anxiety] (ICD-10) Insomnia ?G47.00 - Insomnia, unspecified (ICD-10) Restless legs syndrome ?G25.81 - Restless legs syndrome (ICD-10) Urge incontinence of urine ?N39.41 - Urge incontinence (ICD-10) Controlled substance agreement signed ?Z79.899 - Other snf (current) drug therapy (ICD-10) Vitamin D deficiency ?E55.9 - Vitamin D deficiency, unspecified (ICD-10) MRSA (methicillin resistant staph aureus) culture positive (~12/05/15) ?Z22.322 - Carrier or suspected carrier of Methicillin resistant Staphylococcus aureus (ICD-10) Left ureteral stone (~12/11/15) ?N20.1 - Calculus of ureter (ICD-10) CKD (chronic kidney disease), stage III ?N18.30 - Chronic kidney disease, stage 3 unspecified (ICD-10) Acute osteomyelitis of coccyx (~08/2015) ?M46.28 - Osteomyelitis of vertebra, sacral and sacrococcygeal region (ICD-10) Ulcers of both lower extremities with fat layer exposed ?L97.912 - Non-pressure chronic ulcer of unspecified part of right lower leg with fat layer exposed (ICD-10) ?L97.922 - Non-pressure chronic ulcer of unspecified part of left lower leg with fat layer exposed (ICD-10) Iron deficiency 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 ?D50.1 - Sideropenic dysphagia (ICD-10) Acute kidney injury (~01/2015) ?N17.9 - Acute kidney failure, unspecified (ICD-10) Dysthymia ?F34.1 - Dysthymic disorder (ICD-10) Bilateral leg weakness ?R29.898 - Other symptoms and signs involving the musculoskeletal system (ICD-10) Chronic acquired lymphedema ?I89.0 - Lymphedema, not elsewhere classified (ICD-10) Chronic, continuous use of opioids ?F11.90 - Opioid use, unspecified, uncomplicated (ICD-10) Venous stasis ulcer of thigh with fat layer exposed ?I83.001 - Varicose veins of unspecified lower extremity with ulcer of thigh (ICD-10) ?L97.102 - Non-pressure chronic ulcer of unspecified thigh with fat layer exposed (ICD-10) Elevated TSH ?R79.89 - Other specified abnormal findings of blood chemistry (ICD-10) DJD (degenerative joint disease) of knee ?M17.9 - Osteoarthritis of knee, unspecified (ICD-10) Morbid obesity ?E66.01 - Morbid (severe) obesity due to excess calories (ICD-10) Essential hypertension ?I10 - Essential (primary) hypertension (ICD-10) Surgical History (Updated 03/28/23 @ 16:34 by Rocio Jorge MD) S/P debridement ?Z98.890 - Other specified postprocedural states (ICD-10) S/P ureteral stent placement ?Z96.0 - Presence of urogenital implants (ICD-10) Family History (Updated 03/28/23 @ 16:36 by Rocio Jorge MD) Brother Diabetes Cardiovascular disease Father Cardiovascular disease High blood pressure Sister High cholesterol High blood pressure Mother Dementia Social History (Updated 03/28/23 @ 17:27 by Rocio Jorge MD) Narrative: Lives independently. 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 Smoked an average of 0.3 packs per day for 2 years, quit in 1970. Denies alcohol use. Denies recreational drug use. Wishes to be full code. Smoking Status: Unknown if ever smoked Meds Home Medications and Allergies Home Medications Medication Instructions Recorded Confirmed Type acetaminophen 500 mg capsule 1,000 mg PO TID PRN 03/28/23 03/28/23 History ammonium lactate 12 % lotion (Skin 1 applic topical BID PRN 03/28/23 03/28/23 History Treatment) ascorbic acid (vitamin C) 1,000 mg 1 g PO DAILY 03/28/23 03/28/23 History capsule cholecalciferol (vitamin D3) 1,250 1,250 mcg PO 2XW 03/28/23 03/28/23 History mcg (50,000 unit) capsule (Weekly-D) citalopram 20 mg tablet 20 mg PO DAILY 03/28/23 03/28/23 History diphenhydramine HCl 25 mg capsule 25 mg PO Q6H PRN 03/28/23 03/28/23 History (Allergy (diphenhydramine)) ferrous sulfate 325 mg (65 mg 325 mg PO DAILY 03/28/23 03/28/23 History iron) tablet,delayed release furosemide 20 mg tablet 20 mg PO DAILY 03/28/23 03/28/23 History lidocaine 4 % topical cream 1 applic topical DAILY PRN 03/28/23 03/28/23 History dressing change lorazepam 0.5 mg tablet 0.5 mg PO BID PRN 03/28/23 03/28/23 History morphine 15 mg tablet,extended 15 mg PO BID PRN 03/28/23 03/28/23 History release nystatin 100,000 unit/gram topical 1 applic topical BID 03/28/23 03/28/23 History powder (Nyamyc) ondansetron 4 mg disintegrating 4 mg PO Q8H PRN 03/28/23 03/28/23 History tablet polyethylene glycol 3350 17 17 g PO DAILY PRN 03/28/23 03/28/23 History gram/dose oral powder (Miralax) potassium chloride 10 mEq 10 meq PO DAILY 03/28/23 03/28/23 History tablet,extended release sennosides 8.6 mg capsule (senna) 8.6 - 17.2 mg PO DAILY PRN 03/28/23 03/28/23 History silver sulfadiazine 1 % topical 1 applic topical DAILY 03/28/23 03/28/23 History cream (SSD) triamcinolone acetonide 0.1 % 1 applic topical BID 03/28/23 03/28/23 History topical cream Allergies Allergy/AdvReac Type Severity Reaction Status Date / Time amoxicillin Allergy Unknown Verified 03/28/23 13:05 buspirone [From BuSpar] Allergy Unknown Verified 03/28/23 13:16 cephalexin [From Keflex] Allergy Unknown Verified 03/28/23 13:15 doxycycline Allergy Unknown Verified 03/28/23 13:15 latex Allergy Unknown Verified 03/28/23 13:15 lisinopril Allergy Unknown Verified 03/28/23 13:15 Penicillins Allergy Unknown Verified 03/28/23 13:15 Sulfa (Sulfonamide Allergy Unknown Verified 03/28/23 13:15 Antibiotics) Exam Narrative: Exam Narrative: General: alert and oriented, agitation but non toxic. Resp: maintained on room air. CV: well perfused : excoriated skin of bilateral buttock with several skin tears and stage 2 ulcerations to the dermis. Coccyx pressure ulcer, to bone consistent with stage 4 Ext: Notable bilateral hyperplasia, papillomatois, elephantiasis, hyper pigmentation with hemosiderin staining, and hyperkeratosis consistent with bilateral lymphedema. BLE posterior thigh ulcerations, open wounds to subcutaneous fat with significant amount of fibrinous exudate and necrotic tissue. Const: Vital Signs, click to edit/add: Vital Signs - 24 hr 03/28/23 13:02 03/28/23 13:57 03/28/23 14:00 Temperature 97.3 F L Pulse Rate 91 99 Pulse Rate [Pulse Oximeter] 94 Respiratory Rate 24 Blood Pressure Blood Pressure [Ri ght Upper Arm] 145/104 H Pulse Oximetry 97 95 96 Oxygen Delivery Me thod Room Air Room Air 03/28/23 14:01 03/28/23 14:15 03/28/23 14:56 Temperature Pulse Rate 99 97 98 Pulse Rate [Pulse Oximeter] Respiratory Rate Blood Pressure 129/85 157/85 H Blood Pressure [Ri ght Upper Arm] Pulse Oximetry 94 93 96 Oxygen Delivery Me thod 03/28/23 14:57 03/28/23 15:00 03/28/23 15:02 Temperature Pulse Rate 98 98 99 Pulse Rate [Pulse Oximeter] Respiratory Rate Blood Pressure 155/94 H Blood Pressure [Ri ght Upper Arm] Pulse Oximetry 96 96 96 Oxygen Delivery Me thod 03/28/23 15:15 Temperature Pulse Rate 97 Pulse Rate [Pulse Oximeter] Respiratory Rate Blood Pressure Blood Pressure [Ri ght Upper Arm] Pulse Oximetry 96 Oxygen Delivery Me thod Results Labs Labs: Abnormal lab results 03/28/23 Range/Units 13:45 RBC 3.89 L (4.00-5.20) m/uL Hgb 9.4 L (12.0-16.0) gm/dL MCH 24 L (26-34) pg MCHC 29 L (32-36) gm/dL RDW Coeff of Vilma 16.2 H (11.5-15.5) % Lymph % (Auto) 19.5 L (20-44) % ESR 74 H (2-20) mm/hr C-Reactive Protein 6.5 H (0.5-1.0) mg/dL Total Protein 8.6 H (6.0-8.3) g/dL Diabetes panel 03/28/23 Range/Units 13:45 Sodium 137 (135-149) mmol/L Potassium 4.7 (3.6-5.1) mmol/L Chloride 101 (96-114) mmol/L Carbon Dioxide 28 (20-32) mmol/L BUN 15 (7-30) mg/dL Creatinine 1.1 (0.5-1.5) mg/dL Glucose 100 (60-115) mg/dL Calcium 8.7 (8.4-10.6) mg/dL AST 26 (12-35) U/L ALT 9 (4-35) U/L Alkaline Phosphatase 83 (40-150) U/L Total Protein 8.6 H (6.0-8.3) g/dL Albumin 3.8 (3.3-5.0) g/dL Calcium panel 03/28/23 Range/Units 13:45 Calcium 8.7 (8.4-10.6) mg/dL Albumin 3.8 (3.3-5.0) g/dL Pituitary panel 03/28/23 Range/Units 13:45 Sodium 137 (135-149) mmol/L Potassium 4.7 (3.6-5.1) mmol/L Chloride 101 (96-114) mmol/L Carbon Dioxide 28 (20-32) mmol/L BUN 15 (7-30) mg/dL Creatinine 1.1 (0.5-1.5) mg/dL Glucose 100 (60-115) mg/dL Calcium 8.7 (8.4-10.6) mg/dL Adrenal panel 03/28/23 Range/Units 13:45 Sodium 137 (135-149) mmol/L Potassium 4.7 (3.6-5.1) mmol/L Chloride 101 (96-114) mmol/L Carbon Dioxide 28 (20-32) mmol/L BUN 15 (7-30) mg/dL Creatinine 1.1 (0.5-1.5) mg/dL Glucose 100 (60-115) mg/dL Calcium 8.7 (8.4-10.6) mg/dL Total Bilirubin 0.5 (0.1-1.5) mg/dL AST 26 (12-35) U/L ALT 9 (4-35) U/L Alkaline Phosphatase 83 (40-150) U/L Total Protein 8.6 H (6.0-8.3) g/dL Albumin 3.8 (3.3-5.0) g/dL All other labs normal. Imaging CT scan - pelvis: report reviewed and image reviewed Assessment and Plan Assessment and plan (1) Chronic acquired lymphedema: Status: Chronic (2) Stage IV pressure ulcer of sacral region: Problem comment: - This is a chronic ulcer for which she has failed outpatient treatment through [facility] [place]. 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 - Dr. Gonzáles was consulted through the ER and is planning debridement this evening. Patient refuses surgery - Area did not appear infected, WBC is wnl. Pt denies fever or chills. CRP mildly elevated. Will hold off on antibiotics for now. Dr. Gonzáles has made recommendations for dressing changes. Have patient f/u with wound clinic and Dr. Broderick this week. Status: Chronic (3) Ulcers of both lower extremities with fat layer exposed: Status: Chronic Plan Patient with multiple chronic wounds, no evidence of associated infection but significant necrotic tissue burden to BLE. Recommendation at this time would be to go to the OR for exam under anesthesia, debridement of wounds and application of dressings. Risks and benefits of the procedure were discussed at length with the patient. After a thorough discussion with the patient she refuses any surgical intervention or debridement at this time. She does understand that there are large areas of the wound with necrotic tissue that would benefit from debridement and that by refusing she is at risk for infection or worsening of these wounds. She is open to dressing changes and wishes to follow up at the [facility] wound center. Recommend daily dressing changes of Zinc Oxide to bilateral buttock and stage II buttock ulcers/skin tears, Vashe soaked gauze to sacral pressure ulcer with outer Mepilex dressing, Vashe soaked gauze to BLE wounds with wrapping of Kerlix and KRISTAL wrap. Recommend patient elevate her legs as much as possible. Patient to follow up with her PCP and Wound Center at [facility].
[2023-03-28] MEDS: LORazepam 2 MG/ML inj 0.5 MG IVP (18:32)
--- NOTE | 2023-03-28 19:35 | PC.NURSE ---
Patient arrived to the unit @1645 the plan was for her to be admitted and go under surgery for debridement of her sacral tunneling wound... after talking to DR Ayoub the patient refused to go through with surgery... the patient agreed for us to complete the wound care on BLE and her sacral wound. BLE have extensive venous stasis wounds that are deep they were cleaned with Vashe... then wrapped with wet Kerlix soaked in Vashe... an ABD pad was applied to the open part of the wound then KRISTAL wraps were applied. Her sacral wound was cleaned with Vashe then packed with one piece of wet Vashe soaked Kerlix then a Mepilex was applied over the packed wound. Additionally a sacral Mepilex was applied as well. On the back of both of her thighs we cleaned them with Vashe and then we applied zinc barrier cream. The wound care order was ordered by DR AYOUB. Recommendations are listed in the discharge paperwork. Awaiting EMS transport. Will discharge back home and will follow up outpatient for her wound care. Call light within reach.
--- NOTE | 2023-03-29 08:12 | REH.OT ---
OT/PT: Orders received and per chart review, patient refused surgery and discharged to home 03/28/23 prior to eval.
--- NOTE | 2023-03-29 11:12 | PC.SOCIAL ---
Social work: Received call from Omayra Gonzalez [facility] vulnerable adult worker, stating she is working on this case. Secure emailed requested MD notes to Omayra.
--- NOTE | 2023-03-29 18:43 | PC.NURSE ---
Pt's sig. other came @1840 to draft roller picker 2 pill bottles pt left when DC'd. Ativan 39 tabs, [place] 8 tabs. Bottles were counted when put in locked control drawer and when removed from controlled drawer and returned pt's sign other.
== END 2023-03-28 20:00 | disposition home or self-care (01) ==
LOC: ED 13:54 → MEDSURG 16:40
PROVIDERS: Admitting Provider Family Medicine; Emergency Provider Family Medicine; PCP Family Medicine; Visit Provider Family Medicine
DX: L89.154 Pressure ulcer of sacral region, stage 4 (principal); M53.3 Sacrococcygeal disorders, not elsewhere classified; G89.29 Other chronic pain; M46.28 Osteomyelitis of vertebra, sacral and sacrococcygeal region; L97.912 Non-pressure chronic ulcer of unspecified part of right lower leg with fat layer exposed; L97.922 Non-pressure chronic ulcer of unspecified part of left lower leg with fat layer exposed; I89.0 Lymphedema, not elsewhere classified; R79.82 Elevated C-reactive protein (CRP); D50.1 Sideropenic dysphagia; F11.90 Opioid use, unspecified, uncomplicated; D50.8 Other iron deficiency anemias; I12.9 Hypertensive chronic kidney disease with stage 1 through stage 4 chronic kidney disease, or unspecified chronic kidney disease; N18.30 Chronic kidney disease, stage 3 unspecified; E66.01 Morbid (severe) obesity due to excess calories; R32 Unspecified urinary incontinence; L85.3 Xerosis cutis; Z91.040 Latex allergy status; Z79.899 Other long term (current) drug therapy; Z98.890 Other specified postprocedural states; Z96.0 Presence of urogenital implants; Z87.891 Personal history of nicotine dependence
CPT/HCPCS: 36415; 74177; 80048; 80076; 81001; 83605; 85025; 85651; 86140; 87040; 87086; 96374; 96375; 99284; A0425; A0428; A9270; G0378; J1170; J2060; Q9967

== ENCOUNTER 2023-05-10 18:40 | Emergency (ER) | payer MEDICARE, SELFPAY ==
[2023-05-10 18:52] VITALS: BP 129/91; PULSE 101; RESP 22; TEMP 36.6; O2SAT 93; BMI 38.3
--- NOTE | 2023-05-10 19:28 | CRLHL7_ITS ---
For Patients: As a result of the Cures Act, medical imaging exams and procedure reports are released immediately into your electronic medical record. You may view this report before your referring provider. If you have questions, please contact your health care provider. INDICATION: .COVID + TECHNIQUE: Chest 1 views. COMPARISON: None. FINDINGS: Lungs: Low lung volumes. No consolidation. Vascular redistribution. Pleura: No pleural effusion or pneumothorax. Heart and Mediastinum: Normal heart size. The great vessels of the thorax are unremarkable. Bones: No acute displaced osseous process. IMPRESSION: No consolidation. Dictated by Camacho Liao MD @ 05/10/2023 7:54:02 PM (Electronically Signed)
--- NOTE | 2023-05-10 19:30 | ED.GENADULT ---
HPI - General Adult General Chief complaint: Shortness of Breath/Dyspnea Stated complaint: Covid+ Time Seen by Provider: 05/10/23 19:18 History of Present Illness HPI narrative: This 67-year-old female comes in with report that she tested positive at home for COVID 2 days ago. She arrives with oximetry at 93-94% on room air and a heart rate that is borderline tachycardic. She does not report any chest pain. She reports some generalized weakness and shortness of breath. She has an occasional cough. She normally uses a walker for ambulating. Related Data Home Medications Medication Instructions Recorded Confirmed acetaminophen 500 mg capsule 1,000 mg PO TID PRN 03/28/23 03/28/23 ammonium lactate 12 % lotion (Skin 1 applic topical BID PRN 03/28/23 03/28/23 Treatment) ascorbic acid (vitamin C) 1,000 mg 1 g PO DAILY 03/28/23 03/28/23 capsule cholecalciferol (vitamin D3) 1,250 1,250 mcg PO 2XW 03/28/23 03/28/23 mcg (50,000 unit) capsule (Weekly-D) citalopram 20 mg tablet 20 mg PO DAILY 03/28/23 03/28/23 diphenhydramine HCl 25 mg capsule 25 mg PO Q6H PRN 03/28/23 03/28/23 (Allergy (diphenhydramine)) ferrous sulfate 325 mg (65 mg 325 mg PO DAILY 03/28/23 03/28/23 iron) tablet,delayed release furosemide 20 mg tablet 20 mg PO DAILY 03/28/23 03/28/23 lidocaine 4 % topical cream 1 applic topical DAILY PRN 03/28/23 03/28/23 dressing change lorazepam 0.5 mg tablet 0.5 mg PO BID PRN 03/28/23 03/28/23 morphine 15 mg tablet,extended 15 mg PO BID PRN 03/28/23 03/28/23 release nystatin 100,000 unit/gram topical 1 applic topical BID 03/28/23 03/28/23 powder (Nyamyc) ondansetron 4 mg disintegrating 4 mg PO Q8H PRN 03/28/23 03/28/23 tablet polyethylene glycol 3350 17 17 g PO DAILY PRN 03/28/23 03/28/23 gram/dose oral powder (Miralax) potassium chloride 10 mEq 10 meq PO DAILY 03/28/23 03/28/23 tablet,extended release sennosides 8.6 mg capsule (senna) 8.6 - 17.2 mg PO DAILY PRN 03/28/23 03/28/23 silver sulfadiazine 1 % topical 1 applic topical DAILY 03/28/23 03/28/23 cream (SSD) triamcinolone acetonide 0.1 % 1 applic topical BID 03/28/23 03/28/23 topical cream Previous Rx's Medication Instructions Recorded levofloxacin 500 mg tablet 500 mg PO DAILY 10 days #10 tabs 05/10/23 nirmatrelvir 300 mg (150 mg See Rx Instructions PO .COMPLEX 05/10/23 x2)-ritonavir 100 mg tablet,dose #30 ea pack (Paxlovid) Allergies Allergy/AdvReac Type Severity Reaction Status Date / Time amoxicillin Allergy Unknown Verified 03/28/23 13:05 buspirone [From BuSpar] Allergy Unknown Verified 03/28/23 13:16 cephalexin [From Keflex] Allergy Unknown Verified 03/28/23 13:15 doxycycline Allergy Unknown Verified 03/28/23 13:15 latex Allergy Unknown Verified 03/28/23 13:15 lisinopril Allergy Unknown Verified 03/28/23 13:15 Penicillins Allergy Unknown Verified 03/28/23 13:15 Sulfa (Sulfonamide Allergy Unknown Verified 03/28/23 13:15 Antibiotics) Review of Systems Status of ROS: Reports: 10 or more systems reviewed and unremarkable except as noted in History and below Narrative: Constitutional: No fevers, no weight gain or loss. Eyes: No discharge. No vision changes. HENT: No congestion, no sore throat, no ear pain. Cardiovascular: No chest pain, no palpitations. Respiratory: No shortness of breath, no wheezes. Occasional nonproductive cough. Gastrointestinal: No abdominal pain, no vomiting, no diarrhea. Genitourinary: No dysuria, no hematuria. Musculoskeletal: Normal range of motion. Skin: No rashes, no pruritis. She has a chronic decubitus ulcer that is being attended to by home health nurse. She states that it seems to be draining more fluid. Neurological: No dizziness, sensory change, speech change. Endo/Heme/Allergies: No bruising or bleeding. No polydipsia. Pysch: no suicidality, no anxiety, no insomnia. All other systems reviewed and are negative. [facility] Medical History (Updated 05/10/23 @ 21:19 by Huy Harrington MD) Stage IV pressure ulcer of sacral region ?L89.154 - Pressure ulcer of sacral region, stage 4 (ICD-10) Chronic pain ?G89.29 - Other chronic pain (ICD-10) Recurrent depression ?F33.9 - Major depressive disorder, recurrent, unspecified (ICD-10) Panic attacks ?F41.0 - Panic disorder [episodic paroxysmal anxiety] (ICD-10) Insomnia ?G47.00 - Insomnia, unspecified (ICD-10) Restless legs syndrome ?G25.81 - Restless legs syndrome (ICD-10) Urge incontinence of urine ?N39.41 - Urge incontinence (ICD-10) Controlled substance agreement signed ?Z79.899 - Other intermediate designer (current) drug therapy (ICD-10) Vitamin D deficiency ?E55.9 - Vitamin D deficiency, unspecified (ICD-10) MRSA (methicillin resistant staph aureus) culture positive (~12/05/15) ?Z22.322 - Carrier or suspected carrier of Methicillin resistant Staphylococcus aureus (ICD-10) Left ureteral stone (~12/11/15) ?N20.1 - Calculus of ureter (ICD-10) CKD (chronic kidney disease), stage III ?N18.30 - Chronic kidney disease, stage 3 unspecified (ICD-10) Acute osteomyelitis of coccyx (~08/2015) ?M46.28 - Osteomyelitis of vertebra, sacral and sacrococcygeal region (ICD-10) Ulcers of both lower extremities with fat layer exposed ?L97.912 - Non-pressure chronic ulcer of unspecified part of right lower leg with fat layer exposed (ICD-10) ?L97.922 - Non-pressure chronic ulcer of unspecified part of left lower leg with fat layer exposed (ICD-10) Iron deficiency 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 ?D50.1 - Sideropenic dysphagia (ICD-10) Acute kidney injury (~01/2015) ?N17.9 - Acute kidney failure, unspecified (ICD-10) Dysthymia ?F34.1 - Dysthymic disorder (ICD-10) Bilateral leg weakness ?R29.898 - Other symptoms and signs involving the musculoskeletal system (ICD-10) Chronic acquired lymphedema ?I89.0 - Lymphedema, not elsewhere classified (ICD-10) Chronic, continuous use of opioids ?F11.90 - Opioid use, unspecified, uncomplicated (ICD-10) Venous stasis ulcer of thigh with fat layer exposed ?I83.001 - Varicose veins of unspecified lower extremity with ulcer of thigh (ICD-10) ?L97.102 - Non-pressure chronic ulcer of unspecified thigh with fat layer exposed (ICD-10) Elevated TSH ?R79.89 - Other specified abnormal findings of blood chemistry (ICD-10) DJD (degenerative joint disease) of knee ?M17.9 - Osteoarthritis of knee, unspecified (ICD-10) Morbid obesity ?E66.01 - Morbid (severe) obesity due to excess calories (ICD-10) Essential hypertension ?I10 - Essential (primary) hypertension (ICD-10) Surgical History (Updated 03/28/23 @ 16:34 by Rocio Jorge MD) S/P debridement ?Z98.890 - Other specified postprocedural states (ICD-10) S/P ureteral stent placement ?Z96.0 - Presence of urogenital implants (ICD-10) Family History (Updated 03/28/23 @ 16:36 by Rocio Jorge MD) Brother Diabetes Cardiovascular disease Father Cardiovascular disease High blood pressure Sister High cholesterol High blood pressure Mother Dementia Social History (Updated 03/28/23 @ 17:27 by Rocio Jorge MD) Narrative: Lives independently. 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 Smoked an average of 0.3 packs per day for 2 years, quit in 1970. Denies alcohol use. Denies recreational drug use. Wishes to be full code. What is your current living situation?: I presently have a place to live Problems where you live: no known problems Problems where you live details: none In the past 12 months, utilities in danger of being shut off: no In past 12 months, lack of transportation kept you from medical appts, meetings, work, or getting things needed for daily living: yes In the past 12 mos, have been you worried that your food would run out before you had money to buy more?: never true In the past 12 mos, the food you bought just didn't last and you didn't have money to buy more?: never true Highest level of school completed/degree received: 11th grade Smoking Status: Unknown if ever smoked Do you use any of these nicotine containing products: None How often do you have a drink containing alcohol: never AUDIT-C Alcohol total score: 0 Non-prescribed substance use: denies use Caffeine: No How often does anyone, including family, friends and others, physically hurt you: never How often does anyone, including family, friends and others, insult or talk down to you: sometimes How often does anyone, including family, friends and others, threaten you with harm: never How often does anyone, including family, friends and others, scream or curse at you: sometimes service: No Exam Narrative: Exam Narrative: Constitutional: Well-developed, well-nourished, no acute distress. HEENT: Normocephalic, atraumatic. Neck: Normal range of motion. Nontender. Supple. Heart: Regular. No murmurs. Normal rate. Intact distal pulses. Lungs: Clear to auscultation. No chest discomfort. No wheezes, rhonchi, or rales. Abdomen: Normal bowel sounds. Nontender. No rebound tenderness. Genitalia: Deferred. Back: No midline tenderness. Normal range of motion. Extremities: Normal range of motion. No injury. Skin: No rash. Warm. No erythema or pallor. Attempt was made to assess the decubitus ulcer but the patient had too much discomfort and difficulty rolling to the side. Neurologic: No altered sensation. No weakness. Alert and oriented. Psychiatric: No suicidality. No anxiety or depression. No insomnia. Nursing notes and vitals signs are reviewed. Const: Vital Signs, click to edit/add: Vital Signs - 24 hr 05/10/23 18:52 Temperature 97.9 F Pulse Rate [Left P ulse Oximeter] 101 H Respiratory Rate 22 Blood Pressure [Ri ght Upper Arm] 129/91 H Pulse Oximetry 93 Oxygen Delivery Me thod Room Air Course Vital Signs Vital signs: Initial Vital Signs Temperature 97.9 F 05/10/23 18:52 Temperature Source Temporal Artery Scan 05/10/23 18:52 Pulse Rate 101 H 05/10/23 18:52 Pulse Rhythm Regular 05/10/23 18:52 Respiratory Rate 22 05/10/23 18:52 Blood Pressure 129/91 H 05/10/23 18:52 Blood Pressure Mean 103 05/10/23 18:52 Blood Pressure Position Sitting 05/10/23 18:52 Pulse Oximetry 93 05/10/23 18:52 Oxygen Delivery Method Room Air 05/10/23 18:52 Vital Signs Temperature 97.9 F 05/10/23 18:52 Pulse Rate 101 H 05/10/23 18:52 Respiratory Rate 22 05/10/23 18:52 Blood Pressure 129/91 H 05/10/23 18:52 Pulse Oximetry 93 05/10/23 18:52 Oxygen Delivery Method Room Air 05/10/23 18:52 Temperature 97.9 F 05/10/23 18:52 Pulse Rate 101 H 05/10/23 18:52 Respiratory Rate 22 05/10/23 18:52 Blood Pressure 129/91 H 05/10/23 18:52 Pulse Oximetry 93 05/10/23 18:52 Oxygen Delivery Method Room Air 05/10/23 18:52 Medications Administered Medications: Generic Name Dose Route Start Last Admin Trade Name Freq PRN Reason Stop Dose Admin Sodium Chloride 1,000 mls @ 1,000 mls/hr 05/10/23 20:30 05/10/23 20:54 0.9 % Sodium Chloride 1000 Ml IV 05/10/23 21:29 1,000 mls/hr .Q1H JONATAN Administration Discontinued Medications Generic Name Dose Route Start Last Admin Trade Name Freq PRN Reason Stop Dose Admin Ondansetron HCl 4 mg 05/10/23 20:27 05/10/23 20:54 Ondansetron 2 Mg/Ml Inj IVP 05/10/23 20:28 4 mg ONCE ONE Administration Medical Decision Making MDM Narrative Medical decision making narrative: This patient comes in with a positive home test for COVID that occurred a couple days ago. She is maintaining sufficient oximetry on room air. She also reports a decubitus ulcer and there is an associated accompanying order related to this. She continues to have normal vital signs. She does report dry mouth and states that she has some loss of appetite with COVID. An IV was established where she received a L of normal saline and 4 mg of Zofran. Lab results returned with normal white count and hemoglobin at around 9.5. This patient was hoping to be admitted into the hospital but there are no beds available. She is okay to return home and did received prescription for Paxlovid and Levaquin. She has allergy to several medications. Lab Data Labs: Lab Results 05/10/23 Range/Units 20:55 WBC 7.13 (4.50-11.00) K/uL RBC 3.95 L (4.00-5.20) m/uL Hgb 9.5 L (12.0-16.0) gm/dL Hct 33.4 (33.0-51.0) % MCV 85 (80-100) fL MCH 24 L (26-34) pg MCHC 28 L (32-36) gm/dL RDW Coeff of Vilma 16.8 H (11.5-15.5) % Plt Count 308 (140-440) K/uL Neut % (Auto) 79.1 H (42.0-72.0) % Lymph % (Auto) 13.0 L (20-44) % [place] % (Auto) 6.7 (0.0-11.0) % Eos % (Auto) 0.4 (0.0-7.0) % Baso % (Auto) 0.0 (0.0-3.0) % Neut # (Auto) 5.60 (1.7-7.0) K/uL Lymph # (Auto) 0.90 (0.90-2.90) K/uL [place] # (Auto) 0.50 (0.00-0.90) K/UL Eos # (Auto) 0.03 (0.00-0.50) K/uL Baso # (Auto) 0.00 (0.00-0.30) K/uL Abs Immat Gran (auto) 0.06 (0.00-0.30) K/uL Imm/Tot Granulo (auto) 0.8 % Sodium 140 (135-149) mmol/L Potassium 3.8 (3.6-5.1) mmol/L Chloride 100 (96-114) mmol/L Carbon Dioxide 30 (20-32) mmol/L Anion Gap 10 (7-15) mEq/L BUN 16 (7-30) mg/dL Creatinine 0.9 (0.5-1.5) mg/dL Estimated Creat Clear 46.50 Estimated GFR 70 ml/min Glucose 118 H (60-115) mg/dL Calcium 8.5 (8.4-10.6) mg/dL Imaging Data Chest x-ray: Radiologist's impression: No consolidation. ECG Data Attestation: I personally reviewed and interpreted this ECG as follows: Interpretation: Normal sinus rhythm. Rate is 99 beats per minute. There are no ST or T-wave abnormalities. Discharge Plan Discharge Clinical Impression: COVID-19, Decubitus ulcer Patient Disposition: Home, Self-Care Condition: Unchanged Additional Instructions: Take medication as prescribed. Follow up with MD for ongoing management. Return if worsening. Prescriptions: New levofloxacin 500 mg tablet 500 mg PO DAILY 10 Days Qty: 10 0RF Paxlovid 300 mg (150 mg x 2)-100 mg tablets,dose pack See Rx Instructions PO .COMPLEX Qty: 30 0RF Rx Instructions: take TWO 150 mg tablets of nirmatrelvir with ONE 100 mg tablet of ritonavir twice daily for 5 days No Action lidocaine 4 % cream 1 applic topical DAILY PRN (Reason: dressing change) potassium chloride 10 mEq tablet extended release 10 meq PO DAILY citalopram 20 mg tablet 20 mg PO DAILY lorazepam 0.5 mg tablet 0.5 mg PO BID PRN morphine 15 mg tablet extended release 15 mg PO BID PRN furosemide 20 mg tablet 20 mg PO DAILY nystatin [Nyamyc] 100,000 unit/gram powder 1 applic topical BID ferrous sulfate 325 mg (65 mg iron) tablet,delayed release (DR/EC) 325 mg PO DAILY silver sulfadiazine [SSD] 1 % cream 1 applic topical DAILY ondansetron 4 mg tablet,disintegrating 4 mg PO Q8H PRN acetaminophen 500 mg capsule 1,000 mg PO TID PRN ammonium lactate [Skin Treatment] 12 % lotion 1 applic topical BID PRN ascorbic acid (vitamin C) 1,000 mg capsule 1 g PO DAILY cholecalciferol (vitamin D3) [Weekly-D] 1,250 mcg (50,000 unit) capsule 1,250 mcg PO 2XW diphenhydramine HCl [Allergy (diphenhydramine)] 25 mg capsule 25 mg PO Q6H PRN polyethylene glycol 3350 [Miralax] 17 gram/dose powder 17 g PO DAILY PRN senna 8.6 mg capsule 8.6 - 17.2 mg PO DAILY PRN triamcinolone acetonide 0.1 % cream 1 applic topical BID Follow Up/Referrals: Blade Monsalve MD [Primary Care Provider] - Stand Alone Forms: Njuice Info Instructions
--- NOTE | 2023-05-10 19:47 | ED.NURSE ---
Water, Jello, and ice pack provided. Food and fluids okay with .
[2023-05-10 20:54] VITALS: BP 133/87; PULSE 80; RESP 16; O2SAT 90
[2023-05-10] MEDS: ONDANSETRON 2 MG/ML inj 4 MG IVP (20:54)
[2023-05-10] MEDS: 0.9 % SODIUM CHLORIDE 1000 ml 1,000 ML IV (20:54)
[2023-05-10 21:01] LABS: Eosinophils Absolute Auto 0.03 K/uL (0.00-0.50); Eosinophils Percent Auto 0.4 % (0.0-7.0); Hematocrit 33.4 % (33.0-51.0); Hemoglobin* 9.5 gm/dL (12.0-16.0); Immature Granulocytes Abs Auto 0.06 K/uL (0.00-0.30); Immature Granulocytes Pct Auto 0.8 %; Mean Corpuscular HGB Conc 28 gm/dL (32-36); Mean Corpuscular Hemoglobin 24 pg (26-34); Mean Corpuscular Volume 85 fL (80-100); Monocytes Percent Auto 6.7 % (0.0-11.0); Neutrophils Percent Auto 79.1 % (42.0-72.0); Platelet Count* 308 K/uL (140-440); RDW Coefficient of Variation % 16.8 % (11.5-15.5); Red Blood Count 3.95 m/uL (4.00-5.20); White Blood Count* 7.13 K/uL (4.50-11.00)
[2023-05-10 21:02] LABS: Slide Review Reflex No
[2023-05-10 21:12] LABS: Chloride* 100 mmol/L (96-114); Potassium* 3.8 mmol/L (3.6-5.1); Sodium* 140 mmol/L (135-149)
[2023-05-10 21:15] LABS: Anion Gap 10 mEq/L (7-15); Blood Urea Nitrogen* 16 mg/dL (7-30); Carbon Dioxide* 30 mmol/L (20-32); Creatinine* 0.9 mg/dL (0.5-1.5); Estimated Glomerular Filt Rate 70 ml/min; Glucose* 118 mg/dL (60-115)
[2023-05-10 21:16] LABS: Calcium* 8.5 mg/dL (8.4-10.6)
[2023-05-10] MEDS: HYDROmorphone 0.5 mg/0.5 ml inj IVP (21:34)
--- NOTE | 2023-05-10 21:51 | PC.NURSE ---
patient requests ambulance transport to home, explained wheelchair transport charge and patient agreeable, paperwork signed. EMS contacted for transport
--- NOTE | 2023-05-10 22:49 | PC.NURSE ---
patient boyfriend in room, patient informed that she doesn't meet the criteria for wheelchair transport per EMS, informed this would be instead a non-emergent medical transport. patient informed that this bill would be sent to her insurance and if denied she will be billed. patient stated understanding and still requests EMS transport. boyfriend went home and brought patient belongings with him.
--- NOTE | 2023-05-10 23:30 | PC.NURSE ---
patient left via EMS all belongings sent with patient
--- NOTE | 2023-05-10 23:30 | PC.NURSE ---
DC instructions gone over with patient, no further questions
--- NOTE | 2023-05-11 09:53 | ED.NURSE ---
Patient called to report prescriptions were not available. Prescriptions had not been sent electronically and these were called in to [facility] to a pharmacist. Dr. Muller gave OK to use Paxlovid along with Morphine as benefits out weighed risks.
--- NOTE | 2023-05-11 15:27 | PC.SOCIAL ---
Social work: Received call from Omayra Gonzalez who states there is an open case on this patient as she has a history of non-compliance and not following thorugh with medical recommendations. Omayra spoke with pt who shared that she was in the ED on 05/10/23. Sent ED note from ER visit to Omayra as requested.
== END 2023-05-10 23:30 | disposition home or self-care (01) ==
PROVIDERS: Emergency Provider Emergency Medicine Emergency Medical Services; PCP Family Medicine
DX: U07.1 COVID-19 (principal); L89.90 Pressure ulcer of unspecified site, unspecified stage
CPT/HCPCS: 36415; 71045; 80048; 85025; 96374; 96375; 99284; A0425; A0428; A0429; J1170; J2405; J7030

== ENCOUNTER 2023-05-10 23:00 | Outpatient (CLI) | payer MEDICARE, SELFPAY | END 2023-05-10 23:01 | disposition home or self-care (01) | LOC: AMB 09-21 14:03 | PROVIDERS: PCP Family Medicine; Visit Provider Emergency Medicine Emergency Medical Services | DX: R53.1 Weakness (principal); U07.1 COVID-19 | CPT/HCPCS: A0425; A0429 ==

== ENCOUNTER 2023-05-12 06:22 | Outpatient (CLI) | payer MEDICARE, SELFPAY | END 2023-05-12 06:23 | disposition home or self-care (01) | LOC: AMB 05-13 09:40 | PROVIDERS: PCP Family Medicine; Visit Provider Family Medicine | DX: R05.9 Cough, unspecified (principal); U07.1 COVID-19; R53.83 Other fatigue | CPT/HCPCS: A0998 ==

== ENCOUNTER 2023-05-14 01:44 | Inpatient (IN) | payer MEDICARE, SELFPAY ==
[2023-05-14] VITALS (9 sets, daily range): BP systolic 149–173; BP diastolic 77–113; PULSE 77–97; RESP 18–28; TEMP 36.2–36.6; O2SAT 93–97; BMI 40.8; BMI 50.1
--- NOTE | 2023-05-14 03:05 | ED_ITS ---
HPI - General Adult General Chief complaint: Laceration/Wound Stated complaint: covid pos, cyst Time Seen by Provider: 05/14/23 02:07 Source: patient and EMS Mode of arrival: EMS History of Present Illness HPI narrative: 67-year-old female with longstanding history of morbid obesity, lymphedema, chronic ulcers of her calves and gluteal area presents to the ED with increased pain in the gluteal area and weakness. She was evaluated in the ED 3 days ago, notes reviewed. Ultimately, she was discharged on Levaquin for cellulitis of the gluteal area but it did not look like there was a new abscess associated with the chronic ulcer of her tailbone area. She was started on paxlovid for the COVID as well, reports use of this. She says that her pain is continuing to worsen. She is on chronic morphine, reporting to me that she takes 15 mg twice daily and has continued to use that. She also takes Tylenol. She denies fevers but it is very difficult to get her to concentrate and answer questions as she keeps perseverating on multiple areas of pain. CT of the abdomen and pelvis was performed at the last visit and there was no sign of abscess or deep infection tracking. I do review the notes described. She states that home health has not come due to COVID. She reports that her significant other change her leg dressings a day and half ago. It is clear from the condition of these that if they were changed, it was not every layer. She is covered in stool, reports that she cannot take care of herself and started having diarrhea yesterday. She is uncertain if this is related to the COVID or medications to treat this. EMS reporting that she was a heavy to assist, unkempt. They administered fentanyl on route which she reports is not adequately treating her pain. No nausea or vomiting, no difficulty breathing. Does note a hoarse voice but no breathing changes. She reports that she is COVID vaccinated. She did not try any other interventions to manage her symptoms at home prior to coming to the ED today. Past medical history is quite extensive. She has chronic lymphedema, chronic ulcers. She has previously had osteomyelitis of the gluteal region. She has chronic anemia, chronic pain, chronic kidney disease stage 3, obesity, hypertension and anxiety issues. She is allergic to multiple medications including multiple allergies to antibiotics. She is a former smoker but does not currently smoke. She does live independently and has home health services for dressing changes of her legs only she reports. ROS notable for the generalized, wound, pain and GI symptoms as described above. Otherwise she denies times 12 systems. Related Data Home Medications Medication Instructions Recorded Confirmed acetaminophen 500 mg capsule 1,000 mg PO TID PRN 03/28/23 03/28/23 ammonium lactate 12 % lotion (Skin 1 applic topical BID PRN 03/28/23 03/28/23 Treatment) ascorbic acid (vitamin C) 1,000 mg 1 g PO DAILY 03/28/23 03/28/23 capsule cholecalciferol (vitamin D3) 1,250 1,250 mcg PO 2XW 03/28/23 03/28/23 mcg (50,000 unit) capsule (Weekly-D) citalopram 20 mg tablet 20 mg PO DAILY 03/28/23 03/28/23 diphenhydramine HCl 25 mg capsule 25 mg PO Q6H PRN 03/28/23 03/28/23 (Allergy (diphenhydramine)) ferrous sulfate 325 mg (65 mg 325 mg PO DAILY 03/28/23 03/28/23 iron) tablet,delayed release furosemide 20 mg tablet 20 mg PO DAILY 03/28/23 03/28/23 lidocaine 4 % topical cream 1 applic topical DAILY PRN 03/28/23 03/28/23 dressing change lorazepam 0.5 mg tablet 0.5 mg PO BID PRN 03/28/23 03/28/23 morphine 15 mg tablet,extended 15 mg PO BID PRN 03/28/23 03/28/23 release nystatin 100,000 unit/gram topical 1 applic topical BID 03/28/23 03/28/23 powder (Nyamyc) ondansetron 4 mg disintegrating 4 mg PO Q8H PRN 03/28/23 03/28/23 tablet polyethylene glycol 3350 17 17 g PO DAILY PRN 03/28/23 03/28/23 gram/dose oral powder (Miralax) potassium chloride 10 mEq 10 meq PO DAILY 03/28/23 03/28/23 tablet,extended release sennosides 8.6 mg capsule (senna) 8.6 - 17.2 mg PO DAILY PRN 03/28/23 03/28/23 silver sulfadiazine 1 % topical 1 applic topical DAILY 03/28/23 03/28/23 cream (SSD) triamcinolone acetonide 0.1 % 1 applic topical BID 03/28/23 03/28/23 topical cream Previous Rx's Medication Instructions Recorded levofloxacin 500 mg tablet 500 mg PO DAILY 10 days #10 tabs 05/10/23 nirmatrelvir 300 mg (150 mg See Rx Instructions PO .COMPLEX 05/10/23 x2)-ritonavir 100 mg tablet,dose #30 ea pack (Paxlovid) Allergies Allergy/AdvReac Type Severity Reaction Status Date / Time amoxicillin Allergy Unknown Verified 03/28/23 13:05 buspirone [From BuSpar] Allergy Unknown Verified 03/28/23 13:16 cephalexin [From Keflex] Allergy Unknown Verified 03/28/23 13:15 doxycycline Allergy Unknown Verified 03/28/23 13:15 latex Allergy Unknown Verified 03/28/23 13:15 lisinopril Allergy Unknown Verified 03/28/23 13:15 Penicillins Allergy Unknown Verified 03/28/23 13:15 Sulfa (Sulfonamide Allergy Unknown Verified 03/28/23 13:15 Antibiotics) [facility] Medical History Stage IV pressure ulcer of sacral region ?L89.154 - Pressure ulcer of sacral region, stage 4 (ICD-10) Chronic pain ?G89.29 - Other chronic pain (ICD-10) Recurrent depression ?F33.9 - Major depressive disorder, recurrent, unspecified (ICD-10) Panic attacks ?F41.0 - Panic disorder [episodic paroxysmal anxiety] (ICD-10) Insomnia ?G47.00 - Insomnia, unspecified (ICD-10) Restless legs syndrome ?G25.81 - Restless legs syndrome (ICD-10) Urge incontinence of urine ?N39.41 - Urge incontinence (ICD-10) Controlled substance agreement signed ?Z79.899 - 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L97.912 - Non-pressure chronic ulcer of unspecified part of right lower leg with fat layer exposed (ICD-10) ?L97.922 - Non-pressure chronic ulcer of unspecified part of left lower leg with fat layer exposed (ICD-10) Iron deficiency 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 ?D50.1 - Sideropenic dysphagia (ICD-10) Acute kidney injury (~01/2015) ?N17.9 - Acute kidney failure, unspecified (ICD-10) Dysthymia ?F34.1 - Dysthymic disorder (ICD-10) Bilateral leg weakness ?R29.898 - Other symptoms and signs involving the musculoskeletal system (ICD-10) Chronic acquired lymphedema ?I89.0 - Lymphedema, not elsewhere classified (ICD-10) Chronic, continuous use of opioids ?F11.90 - Opioid use, unspecified, uncomplicated (ICD-10) Venous stasis ulcer of thigh with fat layer exposed ?I83.001 - Varicose veins of unspecified lower extremity with ulcer of thigh (ICD-10) ?L97.102 - Non-pressure chronic ulcer of unspecified thigh with fat layer exposed (ICD-10) Elevated TSH ?R79.89 - Other specified abnormal findings of blood chemistry (ICD-10) DJD (degenerative joint disease) of knee ?M17.9 - Osteoarthritis of knee, unspecified (ICD-10) Morbid obesity ?E66.01 - Morbid (severe) obesity due to excess calories (ICD-10) Essential hypertension ?I10 - Essential (primary) hypertension (ICD-10) Surgical History S/P debridement ?Z98.890 - Other specified postprocedural states (ICD-10) S/P ureteral stent placement ?Z96.0 - Presence of urogenital implants (ICD-10) Family History Brother Diabetes Cardiovascular disease Father Cardiovascular disease High blood pressure Sister High cholesterol High blood pressure Mother Dementia Social History Narrative: Lives independently. 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 Smoked an average of 0.3 packs per day for 2 years, quit in 1970. Denies alcohol use. Denies recreational drug use. Wishes to be full code. What is your current living situation?: I presently have a place to live Problems where you live: no known problems Problems where you live details: none In the past 12 months, utilities in danger of being shut off: no In past 12 months, lack of transportation kept you from medical appts, meetings, work, or getting things needed for daily living: yes In the past 12 mos, have been you worried that your food would run out before you had money to buy more?: never true In the past 12 mos, the food you bought just didn't last and you didn't have money to buy more?: never true Highest level of school completed/degree received: 11th grade Smoking Status: Unknown if ever smoked Do you use any of these nicotine containing products: None How often do you have a drink containing alcohol: never AUDIT-C Alcohol total score: 0 Non-prescribed substance use: denies use Caffeine: No How often does anyone, including family, friends and others, physically hurt you : never How often does anyone, including family, friends and others, insult or talk down to you: sometimes How often does anyone, including family, friends and others, threaten you with harm: never How often does anyone, including family, friends and others, scream or curse at you: sometimes service: No Exam Const: Vital Signs, click to edit/add: Vital Signs - 24 hr 05/14/23 01:52 Temperature 97.7 F Pulse Rate [Pulse Oximeter] 77 Respiratory Rate 28 H Blood Pressure [Ri ght Forearm] 149/77 H Pulse Oximetry 97 Oxygen Delivery Me thod Room Air Documenting provider has reviewed patient's vital signs: yes Common normals: alert Other: Malodorous but fully alert. Difficult to get her to concentrate as she perseverates on pain and yelling at us as we attempt to move far, clean stool, inspect her wounds. HENMT: Common normals: normocephalic Head and scalp: normocephalic Face and sinus: normal facial exam Mouth: oral and palatal mucosa normal Eye: Common normals: conjunctivae normal General eye: normal appearance of both eyes Conjunctiva: conjunctiva(e) normal Neck & C-Spine: Common normals: full ROM and no lymphadenopathy Chest: Other: Other than the extensive superficial intertrigo with peripheral superficial ulcerations under the breasts, the chest appears otherwise normal. There are no retractions. She does move air symmetrically. She has some coarse upper airway sounds that do clear with cough. Overall normal respiratory effort, no wheeze. Resp: Common normals: no use of accessory muscles Other: Slightly decreased at the bases and some coarse upper airway sounds but do mostly clear with cough. Cardio: Common normals: regular rate, regular rhythm, S1 normal heart sound, S2 normal heart sound and no murmurs Rate: regular rate Rhythm: regular rhythm Heart sounds: S1 normal and S2 normal GI: Other: Morbidly obese but normoactive bowel sounds. Nondistended. No obvious mass but cannot palpate borders organs. : Other: Intertrigo with some secondary superficial ulceration and signs of mild cellulitis along the po labial area. No areas of fluctuance or abscess of the perineum. Tracking along the gluteal area, there is a very mature stage IV ulcer approximately 3 cm wide, rounded and about 3 cm deep in the pilonidal area. There is no drainage from this and it does not seem to be acutely infected deeply. There is some superficial redness of the skin and there are stage II ulcers of the gluteal cheeks bilaterally. Each is about 4 cm long by 3 cm wide. Mild drainage. Quite a bit of surrounding redness. This is covered with barrier ointment, ABD. Extremity: Other: Both lower extremities have extensive chronic appearing lymphedema. There is no redness or warmth of the lower legs. There are bilateral ulcerations and significantly malodorous drainage, right greater than left. The right side has a 8 cm long by about 4 cm wide chronic appearing ulcer with no acute redness. All dressings are removed, area is washed with sterile saline and cleansing wipes, ABD pads and Kerlix replaced. Similar technique used on the left wound which is less extensive and about 6 x 4 cm. The left is not as malodorous as the right. The feet and toes have very dry skin but no open ulcerations. Neuro: Sensorium/orientation: alert Speech: speech normal Other: Significant global weakness, nonfocal. Cannot get herself up out of bed or roll herself in her current state. Psych: Appearance: disheveled Attitude: engaged Insight: insight good Judgement: fair Skin: Narrative: Multiple ulcerations, area of cellulitis on the gluteal region, intertrigo and chronic wounds as described above. Compared to the exam described on the , it appears as though there has been an increase in superficial cellulitis in the gluteal region. Course Course ED Course: Due to patient's extensive morbid obesity, a required for staff members including myself to lift move, clean, inspect her wounds. This was every staff member currently scheduled in the emergency department. I spent 48 minutes on this, the nursing team with an additional 30 minutes. Pain is increasing in the gluteal region and she is getting weaker due to COVID. She is unable to get wound care at home and cannot care for herself. She was started on Levaquin for cellulitis of the gluteal region and it does not appear to be working, at this point she is failing outpatient management. I do not think that there is a new abscess of the gluteal region but she certainly could benefit from some additional wound care and cleansing especially while she is so weak and unable to care for herself. I have concerns with her current antibiotic and medication for her COVID at her current creatinine clearance. Will recheck basic labs, blood cultures, I did culture her gluteal area wound and cellulitis to see if this was helpful in determining pathogen. I do not think that we need to repeat the CT but I do think she needs to come into the hospital for admission as she has failed outpatient management. Will start IV and anticipate starting IV antibiotics based on recommendations from the hospi talist team. Reevaluation(s) Time of Reevaluation #1: 04:03 Reevaluation #1: Patient counseled on lab results, discussed with hospitalist team. Admission is accepted. Together, we agreed on ertapenem and vancomycin would be a good choice of antibiotics. Will need wound care and surgical consult in the morning. Vital Signs Vital signs: Initial Vital Signs Temperature 97.7 F 05/14/23 01:52 Temperature Source Temporal Artery Scan 05/14/23 01:52 Pulse Rate 77 05/14/23 01:52 Pulse Rhythm Regular 05/14/23 01:52 Respiratory Rate 28 H 05/14/23 01:52 Blood Pressure 149/77 H 05/14/23 01:52 Blood Pressure Mean 101 05/14/23 01:52 Blood Pressure Position Supine 05/14/23 01:52 Pulse Oximetry 97 05/14/23 01:52 Oxygen Delivery Method Room Air 05/14/23 01:52 Vital Signs Temperature 97.7 F 05/14/23 01:52 Pulse Rate 77 05/14/23 01:52 Respiratory Rate 28 H 05/14/23 01:52 Blood Pressure 149/77 H 05/14/23 01:52 Pulse Oximetry 97 05/14/23 01:52 Oxygen Delivery Method Room Air 05/14/23 01:52 Temperature 97.7 F 05/14/23 01:52 Pulse Rate 77 05/14/23 01:52 Respiratory Rate 28 H 05/14/23 01:52 Blood Pressure 149/77 H 05/14/23 01:52 Pulse Oximetry 97 05/14/23 01:52 Oxygen Delivery Method Room Air 05/14/23 01:52 Medications Administered Medications: Discontinued Medications Generic Name Dose Route Start Last Admin Trade Name Freq PRN Reason Stop Dose Admin Sodium Chloride 500 mls @ 500 mls/hr 05/14/23 03:24 05/14/23 04:03 0.9 % Sodium Chloride 500 Ml IV 05/14/23 04:23 500 mls/hr .Q1H ONE Administration Ertapenem 1 gm/ Sodium 100 mls @ 200 mls/hr 05/14/23 04:22 05/14/23 04:33 Chloride IVPB 05/14/23 04:23 200 mls/hr ONCE ONE Administration Nystatin 4 applic 05/14/23 03:42 05/14/23 03:44 Nystatin Cream 30 Gm TOPICAL 05/14/23 03:43 4 applic ONCE ONE Administration Oxycodone HCl 5 mg 05/14/23 03:01 05/14/23 03:42 Oxycodone 5 Mg Tablet PO 05/14/23 03:02 5 mg ONCE ONE Administration Oxycodone HCl 5 mg 05/14/23 04:12 05/14/23 04:19 Oxycodone 5 Mg Tablet PO 05/14/23 04:13 5 mg ONCE ONE Administration Triamcinolone Acetonide 45 applic 05/14/23 03:41 05/14/23 03:44 Triamcinolone Acetonide Ointment 0.1 % TOPICAL 05/14/23 03:42 45 applic ONCE ONE Administration Medical Decision Making MDM Narrative Medical decision making narrative: CT reviewed from 4 days ago, not repeated. Concerns for worsening cellulitis based on increased pain, increase in CRP, weakness. Will need wound care, likely surgical consult and admission. Spoke with the hospitalist , recommending admission, will begin IV antibiotics. Patient reporting inadequate pain relief from the oxycodone given. Lab Data Lab results reviewed: Yes I reviewed the patient's lab results Lab results narrative: No leukocytosis but CRP has gone up markedly. Thankfully kidney function still looks pretty good. Blood cultures are pending. Labs: Lab Results 05/14/23 Range/Units 03:00 WBC 7.78 (4.50-11.00) K/uL RBC 3.51 L (4.00-5.20) m/uL Hgb 8.6 L (12.0-16.0) gm/dL Hct 29.2 L (33.0-51.0) % MCV 83 (80-100) fL MCH 25 L (26-34) pg MCHC 30 L (32-36) gm/dL RDW Coeff of Vilma 17.0 H (11.5-15.5) % Plt Count 271 (140-440) K/uL Neut % (Auto) 78.8 H (42.0-72.0) % Lymph % (Auto) 11.6 L (20-44) % Webster % (Auto) 8.2 (0.0-11.0) % Eos % (Auto) 0.5 (0.0-7.0) % Baso % (Auto) 0.1 (0.0-3.0) % Neut # (Auto) 6.10 (1.7-7.0) K/uL Lymph # (Auto) 0.90 (0.90-2.90) K/uL Webster # (Auto) 0.60 (0.00-0.90) K/UL Eos # (Auto) 0.04 (0.00-0.50) K/uL Baso # (Auto) 0.01 (0.00-0.30) K/uL Abs Immat Gran (auto) 0.06 (0.00-0.30) K/uL Imm/Tot Granulo (auto) 0.8 % Sodium 138 (135-149) mmol/L Potassium 3.3 L (3.6-5.1) mmol/L Chloride 102 (96-114) mmol/L Carbon Dioxide 29 (20-32) mmol/L Anion Gap 7 (7-15) mEq/L BUN 14 (7-30) mg/dL Creatinine 1.0 (0.5-1.5) mg/dL Estimated Creat Clear 42.59 Estimated GFR 61 ml/min Glucose 96 (60-115) mg/dL Lactate 2.3 H (0.5-1.9) mmol/L Calcium 8.2 L (8.4-10.6) mg/dL Total Bilirubin 0.4 (0.1-1.5) mg/dL AST 23 (12-35) U/L ALT 13 (4-35) U/L Alkaline Phosphatase 104 (40-150) U/L C-Reactive Protein 20.6 H (0.5-1.0) mg/dL Total Protein 7.1 (6.0-8.3) g/dL Albumin 3.1 L (3.3-5.0) g/dL Critical Care Time Critical Care Time Total Critical Care Time in Minutes: 48 Discharge Plan Discharge Clinical Impression: Stage IV pressure ulcer of sacral region, COVID, Cellulitis of gluteal region Patient Disposition: Admitted As Inpatient
--- NOTE | 2023-05-14 03:12 | ED.NURSE ---
Addendum entered by Lashonda Garcia RN 05/14/23 04:02: Wound care took 1 hour and 15 minutes Original Note: Extensive wound care, dressing changes, and bed changes performed by MD, 3 RNs and Assistant Editor. Patient tolerated the dressing changes but uncomfortable. Patient very sensitive to touch on open areas on breasts, buttocks, and periarea. Patients right breast and surrounding under area is red, warm, moist, weepy, with small areas of open skin. There was a layer of thick yellow discharge covering the area under her right breast. Left breast had some redness, warmth and drainage as well. Patient has ~3cm in diameter open wound with tunneling on coccyx. Patient also had large stage 2 ulcers on the bottom of her buttcheeks. Patient states that her wounds started weeping yesterday but that shes had the open wound for a couple of months. Patient also notes that she started having diarrhea yesterday from her paxalovid. Patient also has 2 wounds on her posterior lower legs that are being cared for by [facility], but since she was diagnosed with COVID they havent been out since last week but she states that her boyfriend changed the dressings on Wednesdays. Upon removal of the dressings they are very soiled with dark brown, red, and yellow discharge. The dressings on her lower legs needed to be soaked off. Patients groin and breast skin breakdown were dressed with nyastatin and tria steroid cream and a piece of kerlex by MD Arias. ABD pads were applied over the barrier cream on the patients buttocks and then a brief was placed over it. Patients legs were cleaned and an ABD pad and kerlex were applied.
--- NOTE | 2023-05-14 03:13 | PC.NURSE ---
Nursing-called by DR Arias to bring lg amounts of nystatin and tria cream. Entered room with pt laying on left side. Observed large stage 2 wounds on butt cheeks. Coccyx adipose tissue pulled back to observe decubitus with an area that appears to be tunneling. Stool and large amounts of drainage coming from area. Noted also left under breast area flaming red and excoriated. Also noted bilateral LE with dried drainage. All areas cleansed by MD and 4 other staff assisting pt with turning. My boyfriend just did these on Wednesday. Pt had received pain meds via EMS. Pt asking for more pain meds stating she took benadryl and her morphine last night as scheduled. LE noted to also have dried stool on them. NS used to soak these dressings off carefully. Pt voice multiple complaints about different areas which are affected.
[2023-05-14 03:18] LABS: Lactate* 2.3 mmol/L (0.5-1.9)
[2023-05-14 03:19] LABS: Basophils Absolute Auto 0.01 K/uL (0.00-0.30); Basophils Percent Auto 0.1 % (0.0-3.0); Eosinophils Absolute Auto 0.04 K/uL (0.00-0.50); Eosinophils Percent Auto 0.5 % (0.0-7.0); Hematocrit 29.2 % (33.0-51.0); Hemoglobin* 8.6 gm/dL (12.0-16.0); Immature Granulocytes Abs Auto 0.06 K/uL (0.00-0.30); Immature Granulocytes Pct Auto 0.8 %; Lymphocytes Percent Auto 11.6 % (20-44); Mean Corpuscular HGB Conc 30 gm/dL (32-36); Mean Corpuscular Hemoglobin 25 pg (26-34); Mean Corpuscular Volume 83 fL (80-100); Monocytes Percent Auto 8.2 % (0.0-11.0); Neutrophils Percent Auto 78.8 % (42.0-72.0); Platelet Count* 271 K/uL (140-440); Red Blood Count 3.51 m/uL (4.00-5.20); White Blood Count* 7.78 K/uL (4.50-11.00)
[2023-05-14 03:21] LABS: Slide Review Reflex No
[2023-05-14 03:40] LABS: Albumin* 3.1 g/dL (3.3-5.0); Chloride* 102 mmol/L (96-114)
[2023-05-14 03:41] LABS: Potassium* 3.3 mmol/L (3.6-5.1); Sodium* 138 mmol/L (135-149)
[2023-05-14] MEDS: OXYCODONE 5 MG TABLET PO ×2 (03:42→04:19)
[2023-05-14 03:43] LABS: Est. Creatinine Clearance* 42.59; Estimated Glomerular Filt Rate 61 ml/min
[2023-05-14 03:44] LABS: Alanine Aminotransferase* 13 U/L (4-35); Alkaline Phosphatase* 104 U/L (40-150); Anion Gap 7 mEq/L (7-15); Aspartate Amino Transferase* 23 U/L (12-35); Bilirubin Total* 0.4 mg/dL (0.1-1.5); Blood Urea Nitrogen* 14 mg/dL (7-30); Calcium* 8.2 mg/dL (8.4-10.6); Carbon Dioxide* 29 mmol/L (20-32); Glucose* 96 mg/dL (60-115); Total Protein* 7.1 g/dL (6.0-8.3)
[2023-05-14] MEDS: NYSTATIN CREAM 30 GM 4 APPLIC TOPICAL (03:44)
[2023-05-14] MEDS: TRIAMCINOLONE ACETONIDE OINTMENT 0.1 % 45 APPLIC TOPICAL (03:44)
[2023-05-14 04:02] LABS: C Reactive Protein* 20.6 mg/dL (0.5-1.0)
[2023-05-14] MEDS: 0.9 % SODIUM CHLORIDE 500 ML 500 ML IV (04:03)
[2023-05-14] MEDS: ERTAPENEM 1 GM in 0.9 % SODIUM CHLORIDE Mini-bag 100 ML IVPB (04:33)
--- NOTE | 2023-05-14 05:05 | PM.IMHP1 ---
Hospitalist- H&P: HPI History of Present Illness Time Seen by Provider: 06:00 Date Seen: 05/14/23 Chief complaint: covid pos, cyst Narrative: Gracia Braxton [id number] female with complex medical history dominated by morbid obesity, chronic lymphedema, chronic lower extremity ulcers and gluteal ulcers with past history of prior osteomyelitis in the gluteal region and now with recent COVID-19 who presented to the emergency room tonight with increasing weakness and worsening pain in the gluteal region. She was recently diagnosed with COVID-19 3 days ago and started on Paxlovid. Her COVID symptoms are relatively mild with no fever mild cough and fatigue. She has had worsening decubiti ulcer gluteal region skin breakdown and has not been able to receive her wound care to her lower extremities from her lymphedema due to wound care not being able to come to the house because of the COVID. Her buttocks has significant pain and seems to be progressing. In the emergency room she was hemodynamically stable without fever. Does not appear to septic at this time. Case was discussed and we decided to initiate therapy with vancomycin and ertapenem given her multiple allergies. She is being admitted for wound care, surgical evaluation for wound care and evaluation for her home safety and ability to care for self due to the complex medical problems. Review of Systems Status of ROS: Reports: 10 or more systems reviewed and unremarkable except as noted in History and below [facility] Medical History Stage IV pressure ulcer of sacral region ?L89.154 - Pressure ulcer of sacral region, stage 4 (ICD-10) Chronic pain ?G89.29 - Other chronic pain (ICD-10) Recurrent depression ?F33.9 - Major depressive disorder, recurrent, unspecified (ICD-10) Panic attacks ?F41.0 - Panic disorder [episodic paroxysmal anxiety] (ICD-10) Insomnia ?G47.00 - Insomnia, unspecified (ICD-10) Restless legs syndrome ?G25.81 - Restless legs syndrome (ICD-10) Urge incontinence of urine ?N39.41 - Urge incontinence (ICD-10) Controlled substance agreement signed ?Z79.899 - Other retirement (current) drug therapy (ICD-10) Vitamin D deficiency ?E55.9 - Vitamin D deficiency, unspecified (ICD-10) MRSA (methicillin resistant staph aureus) culture positive (~12/05/15) ?Z22.322 - Carrier or suspected carrier of Methicillin resistant Staphylococcus aureus (ICD-10) Left ureteral stone (~12/11/15) ?N20.1 - Calculus of ureter (ICD-10) CKD (chronic kidney disease), stage III ?N18.30 - Chronic kidney disease, stage 3 unspecified (ICD-10) Acute osteomyelitis of coccyx (~08/2015) ?M46.28 - Osteomyelitis of vertebra, sacral and sacrococcygeal region (ICD-10) Ulcers of both lower extremities with fat layer exposed ?L97.912 - Non-pressure chronic ulcer of unspecified part of right lower leg with fat layer exposed (ICD-10) ?L97.922 - Non-pressure chronic ulcer of unspecified part of left lower leg with fat layer exposed (ICD-10) Iron deficiency 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 ?D50.1 - Sideropenic dysphagia (ICD-10) Acute kidney injury (~01/2015) ?N17.9 - Acute kidney failure, unspecified (ICD-10) Dysthymia ?F34.1 - Dysthymic disorder (ICD-10) Bilateral leg weakness ?R29.898 - Other symptoms and signs involving the musculoskeletal system (ICD-10) Chronic acquired lymphedema ?I89.0 - Lymphedema, not elsewhere classified (ICD-10) Chronic, continuous use of opioids ?F11.90 - Opioid use, unspecified, uncomplicated (ICD-10) Venous stasis ulcer of thigh with fat layer exposed ?I83.001 - Varicose veins of unspecified lower extremity with ulcer of thigh (ICD-10) ?L97.102 - Non-pressure chronic ulcer of unspecified thigh with fat layer exposed (ICD-10) Elevated TSH ?R79.89 - Other specified abnormal findings of blood chemistry (ICD-10) DJD (degenerative joint disease) of knee ?M17.9 - Osteoarthritis of knee, unspecified (ICD-10) Morbid obesity ?E66.01 - Morbid (severe) obesity due to excess calories (ICD-10) Essential hypertension ?I10 - Essential (primary) hypertension (ICD-10) Surgical History S/P debridement ?Z98.890 - Other specified postprocedural states (ICD-10) S/P ureteral stent placement ?Z96.0 - Presence of urogenital implants (ICD-10) Family History Brother Diabetes Cardiovascular disease Father Cardiovascular disease High blood pressure Sister High cholesterol High blood pressure Mother Dementia Social History Narrative: Lives independently. 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 Smoked an average of 0.3 packs per day for 2 years, quit in 1970. Denies alcohol use. Denies recreational drug use. Wishes to be full code. What is your current living situation?: I presently have a place to live Problems where you live: no known problems Problems where you live details: NA In the past 12 months, utilities in danger of being shut off: no In past 12 months, lack of transportation kept you from medical appts, meetings, work, or getting things needed for daily living: yes In the past 12 mos, have been you worried that your food would run out before you had money to buy more?: never true In the past 12 mos, the food you bought just didn't last and you didn't have money to buy more?: never true Highest level of school completed/degree received: 11th grade Smoking Status: Former smoker What tobacco products do you use: cigarettes Smoking quit date/years: >15 years ago Do you use any of these nicotine containing products: None How often do you have a drink containing alcohol: never AUDIT-C Alcohol total score: 0 Non-prescribed substance use: denies use Caffeine: No How often does anyone, including family, friends and others, physically hurt you: never How often does anyone, including family, friends and others, insult or talk down to you: rarely How often does anyone, including family, friends and others, threaten you with harm: never How often does anyone, including family, friends and others, scream or curse at you: never service: No Meds Home Medications and Allergies Home Medications Medication Instructions Recorded Confirmed Type acetaminophen 500 mg capsule 1,000 mg PO TID PRN 03/28/23 03/28/23 History ammonium lactate 12 % lotion (Skin 1 applic topical BID PRN 03/28/23 03/28/23 History Treatment) ascorbic acid (vitamin C) 1,000 mg 1 g PO DAILY 03/28/23 03/28/23 History capsule cholecalciferol (vitamin D3) 1,250 1,250 mcg PO 2XW 03/28/23 03/28/23 History mcg (50,000 unit) capsule (Weekly-D) citalopram 20 mg tablet 20 mg PO DAILY 03/28/23 03/28/23 History diphenhydramine HCl 25 mg capsule 25 mg PO Q6H PRN 03/28/23 03/28/23 History (Allergy (diphenhydramine)) ferrous sulfate 325 mg (65 mg 325 mg PO DAILY 03/28/23 03/28/23 History iron) tablet,delayed release furosemide 20 mg tablet 20 mg PO DAILY 03/28/23 03/28/23 History lidocaine 4 % topical cream 1 applic topical DAILY PRN 03/28/23 03/28/23 History dressing change lorazepam 0.5 mg tablet 0.5 mg PO BID PRN 03/28/23 03/28/23 History morphine 15 mg tablet,extended 15 mg PO BID PRN 03/28/23 03/28/23 History release nystatin 100,000 unit/gram topical 1 applic topical BID 03/28/23 03/28/23 History powder (Nyamyc) ondansetron 4 mg disintegrating 4 mg PO Q8H PRN 03/28/23 03/28/23 History tablet polyethylene glycol 3350 17 17 g PO DAILY PRN 03/28/23 03/28/23 History gram/dose oral powder (Miralax) potassium chloride 10 mEq 10 meq PO DAILY 03/28/23 03/28/23 History tablet,extended release sennosides 8.6 mg capsule (senna) 8.6 - 17.2 mg PO DAILY PRN 03/28/23 03/28/23 History silver sulfadiazine 1 % topical 1 applic topical DAILY 03/28/23 03/28/23 History cream (SSD) triamcinolone acetonide 0.1 % 1 applic topical BID 03/28/23 03/28/23 History topical cream Allergies Allergy/AdvReac Type Severity Reaction Status Date / Time amoxicillin Allergy Unknown Verified 03/28/23 13:05 buspirone [From BuSpar] Allergy Unknown Verified 03/28/23 13:16 cephalexin [From Keflex] Allergy Unknown Verified 03/28/23 13:15 doxycycline Allergy Unknown Verified 03/28/23 13:15 latex Allergy Unknown Verified 03/28/23 13:15 lisinopril Allergy Unknown Verified 03/28/23 13:15 Penicillins Allergy Unknown Verified 03/28/23 13:15 Sulfa (Sulfonamide Allergy Unknown Verified 03/28/23 13:15 Antibiotics) Exam Narrative: Exam Narrative: Vitals blood pressure 159/103 temperature 97.8 respirations 22 nonlabored satting 93% on room air General:: Chronically ill morbidly obese pleasant resting relatively comfortably at rest but significant discomfort with attempts to move her in the bed for exam HEENT ENT pupils equal round reactive to light sclera nonicteric, oral mucosa moist. Small lesion at the tip of her tongu Neck supple Lungs crackles bilaterally at the bases no respiratory distress mild tachypnea Cor: Distant S1-S2 no murmur appreciated Abdomen: Morbidly corpulent with large pannus with extensive erythema and maceration and breakdown in the folds of the pannus particularly on the lower left abdomen. Abdomen is not tender however significant pain with movement of the pannus Skin multiple areas of skin breakdown in the skin folds. Extensive erythema and maceration underneath the right breast extending up into the axilla. Erythema and skin breakdown in the area of the pannus as described above. The sacral region has a deep sacral ulcer with bilateral gluteal erythema and breakdown and maceration. Multiple old chronic lymphedema sores in the leg currently bandaged not further examined at this time Extremities chronic lymphedema with ulcers currently bandaged warm to the touch Neurologic nonfocal Const: Vital Signs, click to edit/add: Vital Signs - 24 hr 05/14/23 01:52 Temperature 97.7 F Pulse Rate [Pulse Oximeter] 77 Respiratory Rate 28 H Blood Pressure [Ri ght Forearm] 149/77 H Pulse Oximetry 97 Oxygen Delivery Me thod Room Air Hospitalist - H&P: Result Labs Labs: Short CBC 05/14/23 Range/Units 03:00 WBC 7.78 (4.50-11.00) K/uL Hgb 8.6 L (12.0-16.0) gm/dL Hct 29.2 L (33.0-51.0) % Plt Count 271 (140-440) K/uL BMP 05/14/23 03:00 Sodium 138 Potassium 3.3 L Chloride 102 Carbon Dioxide 29 BUN 14 Creatinine 1.0 Glucose 96 Calcium 8.2 L Liver Function 05/14/23 Range/Units 03:00 Total Bilirubin 0.4 (0.1-1.5) mg/dL AST 23 (12-35) U/L ALT 13 (4-35) U/L Alkaline Phosphatase 104 (40-150) U/L Albumin 3.1 L (3.3-5.0) g/dL Imaging CT Chest/Ab/Pelvis: Radiologist's impression: Review of the CT from 2 days ago showed significant left lower anterior stranding in the area of the pannus that right likely represents panniculitis Assessment and Plan Assessment and plan (1) Cellulitis of gluteal region: Status: Acute (2) Decubitus ulcer: Status: Acute (3) COVID: Status: Acute (4) Chronic acquired lymphedema: Status: Chronic (5) Stage IV pressure ulcer of sacral region: Problem comment: - This is a chronic ulcer for which she has failed outpatient treatment through [place] [facility]. 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 - Dr. Gonzáles was consulted through the ER and is planning debridement this evening. Patient refuses surgery - Area did not appear infected, WBC is wnl. Pt denies fever or chills. CRP mildly elevated. Will hold off on antibiotics for now. Dr. Gonzáles has made recommendations for dressing changes. Have patient f/u with wound clinic and Dr. Broderick this week. Status: Chronic (6) Ulcers of both lower extremities with fat layer exposed: Status: Chronic (7) Chronic, continuous use of opioids: Problem comment: - Per [facility] record: Reduced her MS Contin from 15 mg in the morning and 30 mg in the evening to 15 mg twice daily on 09/14/2022. - In the process of referring her to the pain clinic for chronic pain from this [place] Broderick MD signed electronically ....................09/02/2022 Status: Acute (8) CKD (chronic kidney disease), stage III: Problem comment: - 08/03/2022 creatinine 0.89 - Cr 1.1 today 03/28. Does not appear dehydrated. F/u in clinic this week. Status: Chronic (9) Morbid obesity: Status: Chronic (10) Essential hypertension: Problem comment: - continue furosemide for HTN and lymphedema/LE edema Status: Chronic (11) Panniculitis: Status: Acute Plan Ms. Thompson represents a complex medical problem dominated by morbid obesity and chronic lymphedema with multiple areas of skin breakdown including likely left lower abdominal panniculitis, right breast cellulitis and maceration, deep sacral ulcer and bilateral gluteal cellulitis with high risk of deep soft tissue infection and fasciitis however no current signs of toxicity or evidence of fasciitis and none was recently seen on CT 2 days ago. In addition she has COVID-19 however her symptoms regarding that are minimal and she is currently on Paxlovid Plan plan: 1. Ertapenem and vancomycin with pharmacy to follow vancomycin pharmacokinetics and managing bank vancomycin dosing 2. General surgery consultation for wound care management and wound care service consultation 3. Continue Paxlovid 4. DVT prophylaxis with subcu unfractionated heparin 5. Morphine sulfate intravenous for pain control and acetaminophen 6. Full code 7. Social service consult to evaluate home safety and possible needs of higher level of care at time of discharge Patient was seen today by telemedicine with bedside nursing assistance. Camera on time was at 6:15 AM camera off time 6:40 AM
--- NOTE | 2023-05-14 07:06 | PC.NURSE ---
Patient admitted to floor at 0505, COVID positive plus multiple wounds. Denies any chest pain or shortness of breath, lung sounds with fine crackles in bilateral bases and right mid lobe, audible wheezing heard. Patient states that she tested positive on Wednesday and was prescribed Paxlovid, 2 days remaining for treatment. Denies fever, dry cough reported and generalized weakness. Patient states that 2 days ago she had increased pain to coccyx and pain became so severe she came to the ER. Large open wound to coccyx, bilateral buttocks have stage 2 pressure ulcers, redness and excoriation under bilateral breasts and chronic wounds to bilateral lower extremities. Willie ZELAYA completed video admission at 0645, awaiting orders. Patient has remained in bed, requires max assist of 2-3 to turn in bed.
[2023-05-14] MEDS: HEPARIN 5,000 UNIT/0.5 ML INJ 5000 UNIT SUBCUT ×2 (08:39→20:44)
[2023-05-14] MEDS: SODIUM CHLORIDE 0.9 % (FLUSH) 10 ML SYRINGE 5 ML IVF ×2 (08:41→20:45)
--- NOTE | 2023-05-14 12:55 | REH.PT ---
Orders for PT Eval & Treat received. Chart Reviewed. Pt declined PT Eval today. Assistance provided to roll pt SL<>SL with nursing staff. Will reattempt tomorrow.
--- NOTE | 2023-05-14 14:29 | PM.WSCN ---
Date of Consult Patient: [facility] Patient Consult date: 05/14/23 Requesting Physician: Hospitalist Primary Care Provider: Blade Monsalve MD Consult Narrative Reason for consult: Chronic pressure ulcers- multiple locations. Moisture Intertrigo Narrative: Gracia Louise is a 67 year old female admitted to hospital to Med/surg this morning 06/12/23. Covid positive. Currently needing Wound Care consult for multiple chronic wounds. Of note patient has presented to [facility] in Past. Has since been discharged and transferred to [facility]. Unclear last appointment or current wound care orders. 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 In March 2023 was also seen here, at [facility] department. Consulted on by general surgery who recommended OR debridement that night. Patient declined treatment and was discharged home. Unclear how frequently patient has help in home, such as home care. States significant other assist with wounds at home. Review of Systems Const: Reports: fatigue and malaise Musculo: Reports: extremity pain, extremity swelling and muscle weakness Integ/Breast: Reports: redness, skin tenderness and non-healing lesion Endo: Reports: fatigue PFSH PFSH Medical History Stage IV pressure ulcer of sacral region ?L89.154 - Pressure ulcer of sacral region, stage 4 (ICD-10) Chronic pain ?G89.29 - Other chronic pain (ICD-10) Recurrent depression ?F33.9 - Major depressive disorder, recurrent, unspecified (ICD-10) Panic attacks ?F41.0 - Panic disorder [episodic paroxysmal anxiety] (ICD-10) Insomnia ?G47.00 - Insomnia, unspecified (ICD-10) Restless legs syndrome ?G25.81 - Restless legs syndrome (ICD-10) Urge incontinence of urine ?N39.41 - Urge incontinence (ICD-10) Controlled substance agreement signed ?Z79.899 - Other chcf (current) drug therapy (ICD-10) Vitamin D deficiency ?E55.9 - Vitamin D deficiency, unspecified (ICD-10) MRSA (methicillin resistant staph aureus) culture positive (~12/05/15) ?Z22.322 - Carrier or suspected carrier of Methicillin resistant Staphylococcus aureus (ICD-10) Left ureteral stone (~12/11/15) ?N20.1 - Calculus of ureter (ICD-10) CKD (chronic kidney disease), stage III ?N18.30 - Chronic kidney disease, stage 3 unspecified (ICD-10) Acute osteomyelitis of coccyx (~08/2015) ?M46.28 - Osteomyelitis of vertebra, sacral and sacrococcygeal region (ICD-10) Ulcers of both lower extremities with fat layer exposed ?L97.912 - Non-pressure chronic ulcer of unspecified part of right lower leg with fat layer exposed (ICD-10) ?L97.922 - Non-pressure chronic ulcer of unspecified part of left lower leg with fat layer exposed (ICD-10) Iron deficiency 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 ?D50.1 - Sideropenic dysphagia (ICD-10) Acute kidney injury (~01/2015) ?N17.9 - Acute kidney failure, unspecified (ICD-10) Dysthymia ?F34.1 - Dysthymic disorder (ICD-10) Bilateral leg weakness ?R29.898 - Other symptoms and signs involving the musculoskeletal system (ICD-10) Chronic acquired lymphedema ?I89.0 - Lymphedema, not elsewhere classified (ICD-10) Chronic, continuous use of opioids ?F11.90 - Opioid use, unspecified, uncomplicated (ICD-10) Venous stasis ulcer of thigh with fat layer exposed ?I83.001 - Varicose veins of unspecified lower extremity with ulcer of thigh (ICD-10) ?L97.102 - Non-pressure chronic ulcer of unspecified thigh with fat layer exposed (ICD-10) Elevated TSH ?R79.89 - Other specified abnormal findings of blood chemistry (ICD-10) DJD (degenerative joint disease) of knee ?M17.9 - Osteoarthritis of knee, unspecified (ICD-10) Morbid obesity ?E66.01 - Morbid (severe) obesity due to excess calories (ICD-10) Essential hypertension ?I10 - Essential (primary) hypertension (ICD-10) Surgical History S/P debridement ?Z98.890 - Other specified postprocedural states (ICD-10) S/P ureteral stent placement ?Z96.0 - Presence of urogenital implants (ICD-10) Family History Brother Diabetes Cardiovascular disease Father Cardiovascular disease High blood pressure Sister High cholesterol High blood pressure Mother Dementia Social History Narrative: Lives independently. 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 Smoked an average of 0.3 packs per day for 2 years, quit in 1970. Denies alcohol use. Denies recreational drug use. Wishes to be full code. What is your current living situation?: I presently have a place to live Problems where you live: no known problems Problems where you live details: NA In the past 12 months, utilities in danger of being shut off: no In past 12 months, lack of transportation kept you from medical appts, meetings, work, or getting things needed for daily living: yes In the past 12 mos, have been you worried that your food would run out before you had money to buy more?: never true In the past 12 mos, the food you bought just didn't last and you didn't have money to buy more?: never true Highest level of school completed/degree received: 11th grade Smoking Status: Former smoker What tobacco products do you use: cigarettes Smoking quit date/years: >15 years ago Do you use any of these nicotine containing products: None How often do you have a drink containing alcohol: never AUDIT-C Alcohol total score: 0 Non-prescribed substance use: denies use Caffeine: No How often does anyone, including family, friends and others, physically hurt you: never How often does anyone, including family, friends and others, insult or talk down to you: rarely How often does anyone, including family, friends and others, threaten you with harm: never How often does anyone, including family, friends and others, scream or curse at you: never service: No Meds Home Medications and Allergies Home Medications Medication Instructions Recorded Confirmed Type acetaminophen 500 mg capsule 1,000 mg PO TID PRN 03/28/23 05/14/23 History ammonium lactate 12 % lotion (Skin 1 applic topical BID PRN 03/28/23 05/14/23 History Treatment) ascorbic acid (vitamin C) 1,000 mg 1 g PO DAILY 03/28/23 05/14/23 History capsule cholecalciferol (vitamin D3) 1,250 1,250 mcg PO 2XW 03/28/23 05/14/23 History mcg (50,000 unit) capsule (Weekly-D) citalopram 20 mg tablet 20 mg PO DAILY 03/28/23 05/14/23 History diphenhydramine HCl 25 mg capsule 25 mg PO Q6H PRN 03/28/23 05/14/23 History (Allergy (diphenhydramine)) ferrous sulfate 325 mg (65 mg 325 mg PO DAILY 03/28/23 05/14/23 History iron) tablet,delayed release furosemide 20 mg tablet 20 mg PO DAILY 03/28/23 05/14/23 History lidocaine 4 % topical cream 1 applic topical DAILY PRN 03/28/23 05/14/23 History dressing change lorazepam 0.5 mg tablet 0.5 mg PO BID PRN 03/28/23 05/14/23 History morphine 15 mg tablet,extended 15 mg PO BID PRN 03/28/23 05/14/23 History release ondansetron 4 mg disintegrating 4 mg PO Q8H PRN 03/28/23 05/14/23 History tablet polyethylene glycol 3350 17 17 g PO DAILY PRN 03/28/23 05/14/23 History gram/dose oral powder (Miralax) potassium chloride 10 mEq 10 meq PO DAILY 03/28/23 05/14/23 History tablet,extended release silver sulfadiazine 1 % topical 1 applic topical DAILY 03/28/23 05/14/23 History cream (SSD) triamcinolone acetonide 0.1 % 1 applic topical BID 03/28/23 05/14/23 History topical cream Allergies Allergy/AdvReac Type Severity Reaction Status Date / Time amoxicillin Allergy Unknown Verified 03/28/23 13:05 buspirone [From BuSpar] Allergy Unknown Verified 03/28/23 13:16 cephalexin [From Keflex] Allergy Unknown Verified 03/28/23 13:15 doxycycline Allergy Unknown Verified 03/28/23 13:15 latex Allergy Unknown Verified 03/28/23 13:15 lisinopril Allergy Unknown Verified 03/28/23 13:15 Penicillins Allergy Unknown Verified 03/28/23 13:15 Sulfa (Sulfonamide Allergy Unknown Verified 03/28/23 13:15 Antibiotics) Exam Const: Vital Signs, click to edit/add: Vital Signs - 24 hr 05/14/23 01:52 05/14/23 05:19 05/14/23 05:19 Temperature 97.7 F 97.8 F Pulse Rate [Pulse Oximeter] 77 Pulse Rate [Right Pulse Oximeter] 77 Respiratory Rate 28 H 22 22 Blood Pressure [Ri ght Arm] 159/103 H Blood Pressure [Ri ght Forearm] 149/77 H Pulse Oximetry 97 93 93 Oxygen Delivery Me thod Room Air Room Air Room Air 05/14/23 07:00 05/14/23 07:00 05/14/23 10:34 Temperature 97.8 F 97.8 F Pulse Rate [Pulse Oximeter] Pulse Rate [Right Pulse Oximeter] 84 87 Respiratory Rate 22 22 20 Blood Pressure [Ri ght Arm] 173/93 H 167/97 H Blood Pressure [Ri ght Forearm] Pulse Oximetry 93 93 Oxygen Delivery Me thod Room Air Room Air Common normals: alert Exam limitations: physical limitations General appearance: anxious and frail appearing Nutritional appearance: obese Orientation/consciousness: Yes awake Lymph: Lymphatic: lymphedema (Bilateral lower extremities ) Resp: Effort & inspection: able to speak in complete sentences : Bladder/kidney exam: catheter in place Bimanual exam- vagina & uterus: other (Heavy redness/moisture to groin area extending throughout posterior buttock) Neuro: Sensorium/orientation: awake and alert Psych: Appearance: unkempt Attitude: guarded Skin: Wounds: wounds noted (Multiple Pressure Ulcers: Stage 4 coccyx, Bilateral calf, ) size (Unable to measure wounds during Consult due to patient expression of pain. ) and drainage bloody, serosanguineous and purulent Labs Labs: Short CBC 05/14/23 Range/Units 03:00 WBC 7.78 (4.50-11.00) K/uL Hgb 8.6 L (12.0-16.0) gm/dL Hct 29.2 L (33.0-51.0) % Plt Count 271 (140-440) K/uL BMP 05/14/23 03:00 Sodium 138 Potassium 3.3 L Chloride 102 Carbon Dioxide 29 BUN 14 Creatinine 1.0 Glucose 96 Calcium 8.2 L Liver Function 05/14/23 Range/Units 03:00 Total Bilirubin 0.4 (0.1-1.5) mg/dL AST 23 (12-35) U/L ALT 13 (4-35) U/L Alkaline Phosphatase 104 (40-150) U/L Albumin 3.1 L (3.3-5.0) g/dL Assessment and Plan Assessment and plan (1) Stage IV pressure ulcer of sacral region: Problem comment: - This is a chronic ulcer for which she has failed outpatient treatment through [facility]. Per patient report, she is unsure at times if she has care coming to her home or if she is going to [facility]. - Dr. Gonzáles was consulted through ED in 04/05, planned for OR debridement and patient refused. - Area does not appear infected today. Will plan for wound care orders. Status: Chronic Assessment and Plan: Dressing Change orders: Cleanse wound with Vashe wound cleanser. Pat area dry. Apply zinc barrier cream to immediate wound edges and extend to pressure ulcers on bilateral buttocks. Likely no dressing with stick to this amount of denudement. Moisten kerlix gauze with Vashe wound cleanser. Pack kerlix into wound bed. Cover with ABD pad. Change dressing daily. (2) Pressure ulcer: Status: Chronic (3) Ulcers of both lower extremities with fat layer exposed: Status: Chronic Assessment and Plan: Bilateral Calf wounds: Orders: Cleanse wound with Vashe wound cleanser. If able allow Vashe moistened gauze to remain on wound bed for 3-5 minutes to help with bioburden breakdown. Pat dry. Apply skin prep if able to immediate wound edges. Apply either melgisorb or aquacel with silver to wound bed. Cut to fit dressing to size of wound. Cover with ABDs, wrap with kerlix to secure. Tape only on kerlix. No tape on skin. Change dressing Wednesday/Wednesday/Wednesday. (4) Morbid obesity: Status: Chronic (5) Chronic acquired lymphedema: Status: Chronic Assessment and Plan: Keep lower extremities moisturized to avoid further skin breakdown. Plan Patient upon discharge should be followed by [facility] and home care if able. Unclear to screen writer what type of care has been occurring in last several weeks. Does state missed appointment this past Wednesday06/09/23 at [facility]. May be a good candidate for Mobile Wound Service to better help in home if unable to present to Wound care center. Wounds do need a high degree of outpatient care. Likely at some point surgical intervention for Stage 4 coccyx wound. Wound care to pressure ulcers should be completed 3 times per week to bilateral calfs. Daily to coccyx areas. See above for orders per wound: Intertrigo to bilateral breasts/groin: Keep clean and dry. If able to obtain Interdry apply underneath both breasts to wick away moisture. Apply to bilateral groin. If unable to obtain Interdry ok to utilize zinc barrier cream to groin. Could use soft pillow cases under breasts vs. zinc barrier cream. Interdry is good for up to 5 days unless soiled. Catheter has been placed and will assist with denudement/raw skin to periarea.
[2023-05-14] MEDS: LACTOBACILLUS ACIDOPHILUS 1 TABLET 2 TAB PO (18:15)
--- NOTE | 2023-05-14 18:29 | PC.NURSE ---
Patient is alert and oriented, cooperative with cares at times. Shouts when turning and repo d/t pain in legs, buttocks, and groin area. IV in left wrist patent and SL. 3-4 person assist w/cares and to turn and repo. Patient can ambulate at home w/standard walker but since testing positive for covid, patient states she feels too weak to go to BR or get out of bed. Patient's covarrubias placed today, patent and draining. Patient tolerating a reg. diet, appetite has been decreased. Lucrecia Moreno from wound clinic in to see patient, InterDry to be used for under breasts, if not available, a layer of Zinc is fine. For wound on tailbone: wet to dry packed with kerlix soaked in vashe and covered w/ ABD. For legs: Aquacell, ABD and wrap w/kerlix. Morphine PRN for pain administered.
[2023-05-14] MEDS: POTASSIUM CHLORIDE 10 MEQ CAPSULE ER 40 MEQ PO (20:43)
[2023-05-14] MEDS: LORazepam 0.5 MG TABLET PO (20:44)
[2023-05-14] MEDS: ACETAMINOPHEN 500 MG TABLET 1000 MG PO (20:44)
[2023-05-15] MEDS: MORPHINE 4 MG/ML INJ IVP ×2 (00:24→11:10)
--- NOTE | 2023-05-15 00:48 | PC.NURSE ---
Behavior note: When life insurance underwriter approached pt to administer PRN Morphine before repositioning, life insurance underwriter asked pt to state name and birthday. Pt stated, I don't know it. I just want to be left alone. I just want to go home. Keyboarding Teacher explained reasoning for encouraging Morphine to help reduce pain with repositioning. Pt was then able to state name and birthday and was accepting of medication. glued wood tester updated regarding pt behaviors.
[2023-05-15 02:48] VITALS: BP 136/68; PULSE 76; RESP 16; TEMP 36.2; O2SAT 93
[2023-05-15] MEDS: ERTAPENEM 1 GM in 0.9 % SODIUM CHLORIDE Mini-bag 100 ML IVPB (04:44)
[2023-05-15] MEDS: 0.9 % SODIUM CHLORIDE 250 ml IV (04:44)
[2023-05-15] MEDS: SODIUM CHLORIDE 0.9 % (FLUSH) 10 ML SYRINGE 5 ML IVF ×3 (04:45→20:29)
[2023-05-15 06:49] LABS: Hematocrit 27.2 % (33.0-51.0); Mean Corpuscular HGB Conc 29 gm/dL (32-36); Mean Corpuscular Hemoglobin 24 pg (26-34); Mean Corpuscular Volume 84 fL (80-100); Platelet Count* 247 K/uL (140-440); Red Blood Count 3.25 m/uL (4.00-5.20); White Blood Count* 5.66 K/uL (4.50-11.00)
[2023-05-15 06:56] LABS: Albumin* 2.8 g/dL (3.3-5.0); Chloride* 104 mmol/L (96-114); Hemoglobin* 7.8 gm/dL (12.0-16.0); Slide Review Reflex No; Sodium* 138 mmol/L (135-149)
--- NOTE | 2023-05-15 06:56 | PC.NURSE ---
Shift note [id number]: Wound care orders to buttock and bilateral lower extremities completed per orders given by wound clinic with small amount of serosanguinous drainage noted to wounds. No odor to drainage noted.?Pt was given PRN Morphine before repositioning to help reduce pain. She has no pain when at rest though has discomfort to buttocks and legs when repositioning.?Pt resistive with cares telling staff, ?I just want to go home. I just want to sleep?. Staff provided education of importance of offloading and repositioning to not only help prevent further skin breakdown but also to promote healing of current wounds. IV to R forearm SL other than when pt receiving IV ABX. PO fluids encouraged- pt has had 200 mL urinary output via Gutierrez catheter throughout the shift. Pt noted to be diaphoretic at approximately 0530 though afebrile with temp of 98.0 when confirmed with two different thermometers (tympanic and oral) to determine accuracy. Blood glucose also checked due to diaphoresis and noted to be WNL at 85. Pt continues to require assist of 3-4 staff for repositioning. VSS and pt afebrile. ?
[2023-05-15 06:57] LABS: Potassium* 3.5 mmol/L (3.6-5.1)
[2023-05-15 06:59] LABS: Creatinine* 0.9 mg/dL (0.5-1.5); Est. Creatinine Clearance* 42.59; Estimated Glomerular Filt Rate 70 ml/min
[2023-05-15 07:00] VITALS: BP 141/83; PULSE 71; RESP 16; TEMP 36.1; O2SAT 93
[2023-05-15 07:00] LABS: Anion Gap 3 mEq/L (7-15); Blood Urea Nitrogen* 13 mg/dL (7-30); Calcium* 7.7 mg/dL (8.4-10.6); Carbon Dioxide* 31 mmol/L (20-32); Glucose* 98 mg/dL (60-115); Phosphorus* 3.1 mg/dL (2.5-4.5)
[2023-05-15 07:00] LABS: C.Difficile Negative (Negative); CDIFFEPI 027 Presumptive Negative (Negative)
[2023-05-15 07:01] LABS: Magnesium* 2.2 mg/dL (1.5-2.6)
--- NOTE | 2023-05-15 07:27 | P.IMPN_ITS ---
Progress Note: A&P Assessment and plan (1) Gram-negative bacteremia: Problem details: -likely source is her skin -ertapenem and vancomycin treatment ongoing (Day 2 05/15) - narrow with culture results JESSICA -follow CRP, WBC normal -weak, requiring 3-4 assist (positive covid, bacteremic, anxiety) Status: Acute (2) Stage IV pressure ulcer of sacral region: Problem details: - This is a chronic ulcer for which she has failed outpatient treatment through [facility]. Per patient report, she is unsure at times if she has care coming to her home or if she is going to [facility]. - Dr. Gonzáles was consulted through ED in 04/05, planned for OR debridement and patient refused. - wound care consulted on 05/14 -previous outpatient wound care at and then [facility] -pt did not follow-thru with appts and will need alternative care options at discharge Status: Chronic (3) Cellulitis of gluteal region: Problem details: desquamation noted of both buttocks. warm; draining minimally on ertapenem and vanc bacteremic Status: Acute (4) Iron deficiency 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: Problem details: - 7.8 am of 05/15 - per [facility] records: cbc and iron studies twice yearly as per Dr. Sapp of Oncology. we will test in [place] so she does not have to go to [place]. - 07/22/2022 hemoglobin 10 Status: Chronic (5) COVID: Problem details: date of pos test - unclear home positive. given paxlovid on 05/10 from our ED - unclear if she took this between 05/10 and presentation on 05/14. paxlovid treatment scheduled thru 05/17 - 9pm Status: Deleted (6) Diarrhea: Problem details: -added cholestyramine and imodium for stool control -covarrubias in place -wound care ongoing Status: Acute (7) Debility: Problem details: -chronic debility -BMI 50 -bacteremic and weak -requiring at least 2 maybe up to 3 staff for cares Status: Acute (8) Ulcers of both lower extremities with fat layer exposed: Problem details: -as above Status: Chronic (9) Chronic, continuous use of opioids: Problem details: - Per [facility] record: Reduced her MS Contin from 15 mg in the morning and 30 mg in the evening to 15 mg twice daily on 09/14/2022. Status: Acute (10) Essential hypertension: Problem details: - continue furosemide for HTN and lymphedema/LE edema Status: Chronic (11) Panniculitis: Status: Acute (12) Chronic acquired lymphedema: Status: Chronic (13) Morbid obesity: Status: Chronic (14) CKD (chronic kidney disease), stage III: Problem details: -stable creatinine Status: Chronic Subjective Date Seen: 05/15/23 Interval history: Daily Progress Note - Hospital Medicine Day #: 2 CC: Gram-negative bacteremia, multiple wounds, debility and weakness OVERNIGHT UPDATES FROM STAFF & MED, LAB, IMAGING UPDATES patient is awake and communicating needs. feels a bit better but buttocks are burning and sore. she feels weak. feels overwhelmed. RN note: Shift note [id number]: Wound care orders to buttock and bilateral lower extremities completed per orders given by wound clinic with small amount of serosanguinous drainage noted to wounds. No odor to drainage noted. Pt was given PRN Morphine before repositioning to help reduce pain. She has no pain when at rest though has discomfort to buttocks and legs when repositioning. Pt resistive with cares telling staff, ?I just want to go home. I just want to sleep?. Staff provided education of importance of offloading and repositioning to not only help prevent further skin breakdown but also to promote healing of current wounds. IV to R forearm SL other than when pt receiving IV ABX. PO fluids encouraged- pt has had 200 mL urinary output via Covarrubias catheter throughout the shift. Pt noted to be diaphoretic at approximately 0530 though afebrile with temp of 98.0 when confirmed with two different thermometers (tympanic and oral) to determine accuracy. Blood glucose also checked due to diaphoresis and noted to be WNL at 85. Pt continues to require assist of 3-4 staff for repositioning. VSS and pt afebrile. wound care consult: Gracia Louise is a 67 year old female admitted to hospital to Med/surg this morning 06/12/23. Covid positive. Currently needing Wound Care consult for multiple chronic wounds. Of note patient has presented to [facility] in Past. Has since been discharged and transferred to [facility]. Unclear last appointment or current wound care orders. 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 In March 2023 was also seen here, at [facility] department. Consulted on by general surgery who recommended OR debridement that night. Patient declined treatment and was discharged home. Unclear how frequently patient has help in home, such as home care. States significant other assist with wounds at home. letter from [facility]: May 10, 2023 ? Dear Ms. Luoise: ? Based on repeated failed appointments, which are necessary for your medical ca re, the [facility] has concluded it will no longer be able to provide medical services to you, for a period of six (6) months. This is in accordance with the Failed Appointment Policy that was previously provided to you. ? The failed appointments occurred on the following dates: * February 09, 2023?policy provided to you * February 23, 2023 * March 04, 2023 * May 10, 2023 ? All further appointments previously scheduled with the [facility] have been cancelled. You will need to find a new provider and schedule an appointment to discuss ongoing wound care needs. The [facility] provider will make recommendations regarding wound care for current wounds, should that be requested. In addition, we will transfer medical records to your new provider once written permission has been received from you. ? If a wound clinic is necessary to assist with managing your wound care, you may consider the following: * [facility]?[phone] * [facility]?[phone] * [facility]--[phone] * [facility]?[phone] ? Please contact your health plan at the specific number located on the back of your insurance card to verify coverage for wound clinic services prior to appointment. ? Once the six (6) month period has ended on November 08, 2023, you or a referring provider may contact the [facility] to re- establish care. We look forward to partnering with you to meet your health care needs at that time. Afebrile Blood pressure 136/68 but has been as high as 171 over 103 Heart rate 70s to 90s Respiratory rate 16 Pulse ox 93% on room air 122.6 kilos down from 124.2 kilos on admission White blood cell count is normal. Hemoglobin 7.8 down from 8.6 on admission Platelet count normal Potassium mildly depressed but improved from admission, 3.5 Normal renal function Calcium 7.7, normal magnesium CRP elevated at admission 20.6 - 17.3 this morning. Low albumin 2.8 Negative C diff G negative rods in 1 bottle from admission 05/14 at 3:00 a.m. MAR Review Vancomycin, 2 g at 5:39 a.m. this morning Ertapenem 1 g 4:44 a.m. She continues on paxlovid Morphine p.r.n., lorazepam p.r.n. Heparin 5000 units subQ q.12 Objective: tired appearing, disshelved. Vitals: see above Lungs: Clear. Cardiac: S1S2. Skin exam: large confluent desquamation of both her buttocks and calfs. drainage minimal. panniculitis with yeast overgrowth suspected. Disposition/Potential discharge - Likely to return to previous living situation. Today I spent 50minutes seeing the patient, reviewing Expanse and EPIC notes/diagnostics, discussing the care plan with our care time that includes social work, PT/OT, pharmacy, RT, chcf and documenting my impressions and plan in the medical record. Exam Const: Vital Signs, click to edit/add: Vital Signs - 24 hr 05/14/23 10:34 05/14/23 15:00 05/14/23 15:00 Temperature 97.8 F 97.2 F L Pulse Rate [Right Pulse Oximeter] 87 87 86 Respiratory Rate 20 20 20 Blood Pressure [Ri ght Arm] 167/97 H 171/93 H Pulse Oximetry 93 94 Oxygen Delivery Me thod Room Air Room Air 05/14/23 20:12 05/14/23 20:44 05/14/23 22:11 Temperature 97.4 F L 97.4 F L 97.6 F Pulse Rate [Right Pulse Oximeter] 97 90 Respiratory Rate 18 18 Blood Pressure [Ri ght Arm] 153/113 H 166/83 H Pulse Oximetry 93 93 Oxygen Delivery Me thod Room Air Room Air 05/14/23 22:19 05/15/23 02:48 Temperature 97.1 F L Pulse Rate [Right Pulse Oximeter] 90 76 Respiratory Rate 18 16 Blood Pressure [Ri ght Arm] 136/68 Pulse Oximetry 93 Oxygen Delivery Me thod Room Air Labs Labs: Laboratory Results - last 24 hr 05/14/23 05/15/23 19:36 06:31 WBC 5.66 RBC 3.25 L Hgb 7.8 L* Hct 27.2 L MCV 84 MCH 24 L MCHC 29 L Plt Count 247 Sodium 138 Potassium 3.5 L Chloride 104 Carbon Dioxide 31 Anion Gap 3 L BUN 13 Creatinine 0.9 Estimated Creat Clear 42.59 Estimated GFR 70 Glucose 98 Calcium 7.7 L Phosphorus 3.1 Magnesium 2.2 Albumin 2.8 L Stl C. diff Tox B Gene Negative Stl C. diff [id number] Presumptive Negative
--- NOTE | 2023-05-15 07:37 | PC.NURSE ---
Pt's Hgb noted to be 7.8 this morning. MD Alas has already been updated by Preceptor RN.
[2023-05-15 07:49] LABS: C Reactive Protein* 17.3 mg/dL (0.5-1.0)
[2023-05-15] MEDS: POTASSIUM CHLORIDE 10 MEQ CAPSULE ER PO (09:24)
[2023-05-15] MEDS: FERROUS SULFATE 325 MG TABLET PO (09:24)
[2023-05-15] MEDS: CITALOPRAM HYDROBROMIDE 20 MG TABLET PO (09:24)
[2023-05-15] MEDS: LACTOBACILLUS ACIDOPHILUS 1 TABLET 2 TAB PO ×3 (09:24→18:20)
[2023-05-15] MEDS: FUROSEMIDE 20 MG TABLET PO (09:25)
[2023-05-15] MEDS: CHOLESTYRAMINE POWDER 4 GM PO ×2 (09:26→20:29)
[2023-05-15] MEDS: HEPARIN 5,000 UNIT/0.5 ML INJ 5000 UNIT SUBCUT ×2 (09:27→20:29)
[2023-05-15 15:00] VITALS: BP 158/95; PULSE 79; RESP 24; TEMP 36.7; O2SAT 93
[2023-05-15] MEDS: FLUCONAZOLE 100 MG TABLET 200 MG PO (15:06)
[2023-05-15 15:37] LABS: Hemoglobin A1C* 5.5 % (0-5.6)
[2023-05-15] MEDS: LOPERAMIDE HCL 2 MG CAPSULE PO (18:21)
[2023-05-15 19:00] VITALS: BP 156/73; PULSE 78; RESP 20; TEMP 36.6; O2SAT 95
[2023-05-15] MEDS: ACETAMINOPHEN 500 MG TABLET 1000 MG PO (20:14)
[2023-05-15] MEDS: NYSTATIN POWDER 1 APPLIC TOPICAL (20:29)
[2023-05-15] MEDS: NYSTATIN CREAM 30 GM 1 APPLIC TOPICAL (20:29)
--- NOTE | 2023-05-15 22:14 | PC.NURSE ---
Elevated BP- systolic 150s, otherwise VSS. RA. C/o pain when repositioned, touched, moved- scheduled morphine and PRN tylenol given w/ some relief. Lots of negative self-talk, wanting to be home, frustrated with having to take all these medications etc. LS coarse crackles, frequent moist cough. Tolerating regular diet, decreased appetite, ate 50% of dinner. ~800 cc in. Gutierrez catheter in place, catheter cares done- draining clear yellow urine, 400 cc out. Last BM, earlier today, 12/- 4 mg imodium given. Refusing to get out of bed. q2h repositioning. PIV in right FA- SL'd. Wound on bottom, legs and under right breast. Right breast very painful, w/ multiple circular open sores. Partner here this evening & son, Gera, called for update wondering when she will discharge. Will continue to monitor, follow POC, and keep pt and family updated. Ginger Eli RN
[2023-05-15 23:38] VITALS: BP 151/72; PULSE 73; RESP 22; TEMP 36.3; O2SAT 95
[2023-05-16 04:00] VITALS: BP 167/90; PULSE 70; RESP 16; TEMP 35.9; O2SAT 94
[2023-05-16] MEDS: MORPHINE 4 MG/ML INJ IVP (04:19)
[2023-05-16] MEDS: SODIUM CHLORIDE 0.9 % (FLUSH) 10 ML SYRINGE 5 ML IVF ×3 (04:20→20:27)
[2023-05-16] MEDS: ACETAMINOPHEN 500 MG TABLET 1000 MG PO (04:20)
[2023-05-16] MEDS: LOPERAMIDE HCL 2 MG CAPSULE PO ×2 (04:53→08:03)
[2023-05-16] MEDS: ERTAPENEM 1 GM in 0.9 % SODIUM CHLORIDE Mini-bag 100 ML IVPB (05:45)
[2023-05-16 06:54] LABS: HCO3 VBG 32 mmol/L (21-28); Ionized Calcium* 1.09 mmol/L (1.11-1.30); PCO2 VBG 54 mmHG (40-50); PO2 VBG 30.8 mmHG (25-47)
--- NOTE | 2023-05-16 06:59 | PC.NURSE ---
23-07: pt pleasant and cooperative this shift. Pain tolerable at rest, pt expresses pain with position changes, often yells to hurry up with po care & wound care. 1 x large loose BM, Imodium given after episode. Bilat buttock wounds bloody, applied zinc to best of abilities to wound edges and to ulcers per wound care orders. Pillowcases applied under bilat breasts; minimal drainage noted. Skin breakdown to labia, zinc applied. BLE dressings CDI. Sacral wound dressing CDI. Moist nonproductive cough, encouraged deep breathing exercises. Pt reported dry mouth and feeling like she is losing her voice, encouraged fluids. Pt c/o feeling hot, afebrile, decreased temp in room, applied cool wash cloth to head and ice pack to neck, offered relief. ?
[2023-05-16 07:00] VITALS: BP 151/93; PULSE 68; RESP 16; TEMP 36.3; O2SAT 93
[2023-05-16 07:07] LABS: Basophils Absolute Auto 0.01 K/uL (0.00-0.30); Basophils Percent Auto 0.2 % (0.0-3.0); Eosinophils Absolute Auto 0.08 K/uL (0.00-0.50); Eosinophils Percent Auto 1.5 % (0.0-7.0); Hematocrit 27.2 % (33.0-51.0); Immature Granulocytes Abs Auto 0.24 K/uL (0.00-0.30); Immature Granulocytes Pct Auto 4.4 %; Lymphocytes Percent Auto 16.3 % (20-44); Mean Corpuscular HGB Conc 28 gm/dL (32-36); Mean Corpuscular Hemoglobin 24 pg (26-34); Mean Corpuscular Volume 84 fL (80-100); Monocytes Percent Auto 7.6 % (0.0-11.0); Neutrophils Absolute Auto 3.79 K/uL (1.7-7.0); Platelet Count* 284 K/uL (140-440); RDW Coefficient of Variation % 17.2 % (11.5-15.5); Red Blood Count 3.23 m/uL (4.00-5.20); White Blood Count* 5.41 K/uL (4.50-11.00)
[2023-05-16 07:09] LABS: Hemoglobin* 7.7 gm/dL (12.0-16.0); Slide Review Reflex No
[2023-05-16 07:39] LABS: Chloride* 102 mmol/L (96-114)
[2023-05-16 07:40] LABS: Albumin* 2.9 g/dL (3.3-5.0); Sodium* 137 mmol/L (135-149)
[2023-05-16 07:41] LABS: Potassium* 3.6 mmol/L (3.6-5.1)
[2023-05-16 07:43] LABS: Alkaline Phosphatase* 92 U/L (40-150); Anion Gap 3 mEq/L (7-15); Aspartate Amino Transferase* 18 U/L (12-35); Carbon Dioxide* 32 mmol/L (20-32); Est. Creatinine Clearance* 42.59; Estimated Glomerular Filt Rate 61 ml/min
[2023-05-16 07:44] LABS: Alanine Aminotransferase* 10 U/L (4-35); Blood Urea Nitrogen* 16 mg/dL (7-30); Glucose* 93 mg/dL (60-115); Magnesium* 2.1 mg/dL (1.5-2.6); Phosphorus* 3.4 mg/dL (2.5-4.5); Total Protein* 6.8 g/dL (6.0-8.3)
[2023-05-16 07:47] LABS: C Reactive Protein* 7.8 mg/dL (0.5-1.0)
[2023-05-16 07:58] LABS: Procalcitonin* 0.12 ng/mL (<0.50)
[2023-05-16] MEDS: LACTOBACILLUS ACIDOPHILUS 1 TABLET 2 TAB PO (08:01)
[2023-05-16] MEDS: POTASSIUM CHLORIDE 10 MEQ CAPSULE ER PO (08:01)
[2023-05-16] MEDS: FERROUS SULFATE 325 MG TABLET PO (08:01)
[2023-05-16] MEDS: LORazepam 0.5 MG TABLET PO (08:01)
[2023-05-16] MEDS: FUROSEMIDE 20 MG TABLET PO (08:02)
[2023-05-16] MEDS: CHOLESTYRAMINE POWDER 4 GM PO ×2 (08:03→20:26)
[2023-05-16] MEDS: HEPARIN 5,000 UNIT/0.5 ML INJ 5000 UNIT SUBCUT ×2 (08:03→20:26)
[2023-05-16] MEDS: FLUCONAZOLE 100 MG TABLET 200 MG PO (08:03)
[2023-05-16] MEDS: CITALOPRAM HYDROBROMIDE 20 MG TABLET PO (08:03)
[2023-05-16 08:05] LABS: Bilirubin Total* < 0.1 mg/dL (0.1-1.5); NT Pro B Type NatriureticPept* 552 pg/mL; Troponin I* < 0.01 ng/mL (0.01-0.04)
[2023-05-16] MEDS: NYSTATIN POWDER 1 APPLIC TOPICAL ×2 (08:05→20:27)
[2023-05-16] MEDS: NYSTATIN CREAM 30 GM 1 APPLIC TOPICAL ×3 (08:05→20:27)
--- NOTE | 2023-05-16 08:10 | PM.IMPN1 ---
Progress Note: A&P Assessment and plan (1) Gram-negative bacteremia: Problem details: -likely source is her skin -ertapenem and vancomycin treatment ongoing (Day 3) - narrow with culture results JESSICA. Will get ID consult, 05/17 -Diflucan 200mg (day 2) -follow CRP, WBC normal -weak, requiring 3-4 assist (positive covid, bacteremic, anxiety) Status: Acute (2) Gram-positive cocci bacteremia: Problem details: -likely source is her skin -ertapenem and vancomycin treatment ongoing (Day 3) - narrow with culture results JESSICA -Diflucan 200mg (day 2) -follow CRP, WBC normal -weak, requiring 3-4 assist (positive covid, bacteremic, anxiety) Status: Acute (3) Stage IV pressure ulcer of sacral region: Problem details: - This is a chronic ulcer for which she has failed outpatient treatment -however she has not been compliant with therapies/outpatient appts - Dr. Gonzáles was consulted through ED in 04/05, planned for OR debridement and patient refused. - wound care consulted on 05/14 -previous outpatient wound care at and then [facility] -pt did not follow-thru with appts and will need alternative care options at discharge Status: Chronic (4) Cellulitis of gluteal region: Problem details: desquamation noted of both buttocks. 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 Sapp of Oncology. we will test in [place] so she does not have to go to [place]. - 07/22/2022 hemoglobin 10 Status: Chronic (6) COVID: Problem details: date of pos test - unclear home positive. given paxlovid on 05/10 from our ED - unclear if she took this between 05/10 and presentation on 05/14. 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 Status: Acute (11) Essential hypertension: Problem details: - continue furosemide for HTN and lymphedema/LE edema Status: Chronic (12) Panniculitis: Problem details: topical nystatin oral diflucan wound care Status: Acute (13) Chronic acquired lymphedema: Problem details: wrapped Status: Chronic (14) Morbid obesity: Status: Chronic (15) CKD (chronic kidney disease), stage III: Problem details: -stable creatinine Status: Chronic Subjective Date Seen: 05/16/23 Interval history: Daily Progress Note - Hospital Medicine Day #: 3 CC: Gram-negative and Gram-pos bacteremia, multiple wounds, debility and weakness OVERNIGHT UPDATES FROM STAFF & MED, LAB, IMAGING UPDATES Patient is doing better. awake and introduced me to her boyfriend, Alex, sitting bedside. She demonstrated ISP and aerobika use. c/o about nursing staff but otherwise feels better. Afebrile 151/93, 167/90 Pulse 68 Respirations 16 Pulse ox 93% on room air Weight stable at 122 kilos CBC reflects acute worsening of her chronic anemia but stable from yesterday 7.7 White count is normal Platelet count is normal Blood gas shows a normal pH with a mild bump in her pCO2, likely [place] Chemistries are all reassuring. Potassium is normalized. A1c 5.5 CRP is down trending Procalcitonin is reassuring Low albumin 1 of her 2 blood cultures is now positive for both Gram-negative rods and Gram-positive cocci Wound culture still pending RN note: : pt pleasant and cooperative this shift. Pain tolerable at rest, pt expresses pain with position changes, often yells to hurry up with po care & wound care. 1 x large loose BM, Imodium given after episode. Bilat buttock wounds bloody, applied zinc to best of abilities to wound edges and to ulcers per wound care orders. Pillowcases applied under bilat breasts; minimal drainage noted. Skin breakdown to labia, zinc applied. BLE dressings CDI. Sacral wound dressing CDI. Moist nonproductive cough, encouraged deep breathing exercises. Pt reported dry mouth and feeling like she is losing her voice, encouraged fluids. Pt c/o feeling hot, afebrile, decreased temp in room, applied cool wash cloth to head and ice pack to neck, offered relief. ? wound care consult: Gracia oLuise is a 67 year old female admitted to hospital to Med/surg this morning 06/12/23. Covid positive. Currently needing Wound Care consult for multiple chronic wounds. Of note patient has presented to [facility] in Past. Has since been discharged and transferred to [facility]. Unclear last appointment or current wound care orders. 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 In March 2023 was also seen here, at [facility] department. Consulted on by general surgery who recommended OR debridement that night. Patient declined treatment and was discharged home. Unclear how frequently patient has help in home, such as home care. States significant other assist with wounds at home. letter from [facility]: May 10, 2023 Based on repeated failed appointments, which are necessary for your medical care, the [facility] has concluded it will no longer be able to provide medical services to you, for a period of six (6) months. This is in accordance with the Failed Appointment Policy that was previously provided to you. ? The failed appointments occurred on the following dates: February 09, 2023?policy provided to you February 23, 2023 March 04, 2023 May 10, 2023 ? All further appointments previously scheduled with the [facility] have been cancelled. You will need to find a new provider and schedule an appointment to discuss ongoing wound care needs. The [facility] provider will make recommendations regarding wound care for current wounds, should that be requested. In addition, we will transfer medical records to your new provider once written permission has been received from you. Please contact your health plan at the specific number located on the back of your insurance card to verify coverage for wound clinic services prior to appointment. ? Once the six (6) month period has ended on November 08, 2023, you or a referring provider may contact the [facility] to re-establish care. We look forward to partnering with you to meet your health care needs at that time. Negative C diff MRSA screen pending Her wound is growing Gram-negative rods and Gram-positive cocci in clusters and chains G negative rods AND G pos cocci in 1 bottle from admission 05/14 at 3:00 a.m. MAR Review Vancomycin, 2 g Ertapenem 1 g Diflucan 200mg po qd She continues on paxlovid Morphine p.r.n., lorazepam p.r.n. Heparin 5000 units subQ q.12 Objective: tired appearing, disshelved. Vitals: see above Lungs: Clear. Cardiac: S1S2. Skin exam: large confluent desquamation of both her buttocks and calfs. drainage minimal. panniculitis with yeast overgrowth suspected. Disposition/Potential discharge - Likely to return to previous living situation. Today I spent 50minutes seeing the patient, reviewing Expanse and EPIC notes/diagnostics, discussing the care plan with our care time that includes social work, PT/OT, pharmacy, RT, mcfp and documenting my impressions and plan in the medical record. Exam Const: Vital Signs, click to edit/add: Vital Signs - 24 hr 05/15/23 15:00 05/15/23 15:00 05/15/23 19:00 Temperature 98.1 F 97.8 F Pulse Rate [Right Pulse Oximeter] 79 79 78 Respiratory Rate 24 24 20 Blood Pressure [Ri ght Arm] 158/95 H 156/73 H Pulse Oximetry 93 95 Oxygen Delivery Me thod Room Air Room Air 05/15/23 23:38 05/16/23 04:00 05/16/23 07:00 Temperature 97.3 F L 96.7 F L 97.4 F L Pulse Rate [Right Pulse Oximeter] 73 70 68 Respiratory Rate 22 16 16 Blood Pressure [Ri ght Arm] 151/72 H 167/90 H 151/93 H Pulse Oximetry 95 94 93 Oxygen Delivery Me thod Room Air Room Air Room Air Labs Labs: Laboratory Results - last 24 hr 05/15/23 05/15/23 05/16/23 06:31 14:33 06:37 WBC 5.41 RBC 3.23 L Hgb 7.7 L* Hct 27.2 L MCV 84 MCH 24 L MCHC 28 L RDW Coeff of Vilma 17.2 H Plt Count 284 Neut % (Auto) 70.0 Lymph % (Auto) 16.3 L [place] % (Auto) 7.6 Eos % (Auto) 1.5 Baso % (Auto) 0.2 Neut # (Auto) 3.79 Lymph # (Auto) 0.90 [place] # (Auto) 0.40 Eos # (Auto) 0.08 Baso # (Auto) 0.01 Abs Immat Gran (auto) 0.24 Imm/Tot Granulo (auto) 4.4 VBG pH 7.380 VBG pCO2 54 H VBG pO2 30.8 VBG HCO3 32 H Sodium 137 Potassium 3.6 Chloride 102 Carbon Dioxide 32 Anion Gap 3 L BUN 16 Creatinine 1.0 Estimated Creat Clear 42.59 Estimated GFR 61 Glucose 93 Hemoglobin A1c 5.5 Calcium 8.0 L Ionized Calcium Price 1.09 L Phosphorus 3.4 Magnesium 2.1 Total Bilirubin < 0.1 L AST 18 ALT 10 Alkaline Phosphatase 92 Troponin I < 0.01 L C-Reactive Protein 7.8 H NT-Pro-B Natriuret Pep 552 Total Protein 6.8 Albumin 2.9 L Procalcitonin 0.12 Lab Acknowledgement Test Added
[2023-05-16 11:00] VITALS: BP 168/94; PULSE 80; RESP 18; TEMP 36.6; O2SAT 93
[2023-05-16 15:00] VITALS: BP 159/89; PULSE 76; PULSE 80; RESP 18; TEMP 36.6; O2SAT 93
[2023-05-16 15:42] LABS: Iron* 33 ug/dL (37-170)
[2023-05-16 15:52] LABS: Percent Iron Saturation 17 % (20-50); Total Iron Binding Capacity 201 ug/dL (265-497)
--- NOTE | 2023-05-16 18:30 | PC.NURSE ---
Patient resistive to cares. Yells out with any movement/turning. Pt turned and repositioned every 2 hours as patient would allow. Dressing changes performed to coccyx wounds and bilateral calf wounds per the orders. Patient dangled at the edge of the bed with assistance from 2 nurses and physical therapy. However refuses to stand or assist with rolling over in bed. Nystatin and inter-dry placed under patient's breasts. Patient has a poor appetite, eating only 1 meal today and refused any further supplements.
[2023-05-16 20:20] VITALS: BP 174/74; PULSE 80; RESP 20; TEMP 36.6; O2SAT 93
[2023-05-16 22:53] VITALS: BP 169/84; PULSE 76; RESP 20; TEMP 36.4; O2SAT 95
[2023-05-17] VITALS (10 sets, daily range): BP systolic 136–172; BP diastolic 70–97; PULSE 75–90; RESP 18–30; TEMP 36.3–37.1; O2SAT 92–95
[2023-05-17] MEDS: 0.9 % SODIUM CHLORIDE 250 ml IV (05:08)
[2023-05-17] MEDS: ERTAPENEM 1 GM in 0.9 % SODIUM CHLORIDE Mini-bag 100 ML IVPB (05:08)
--- NOTE | 2023-05-17 06:41 | PC.NURSE ---
End of shift [id number]: Hesitant but cooperative with cares. Pt does call out with repositioning.? Educated pt on importance and need for repositioning. Pt agreeable to turn and repo q2h. Denies pain at rest. Productive cough noted. Dressing to calves c/d/i. Sacral dressing c/d/i. Interdry under breasts. Nystatin placed in groin. Gutierrez in place and draining. Pt was able to rest and appeared comfortable through the night.
[2023-05-17 07:02] LABS: Hematocrit 26.9 % (33.0-51.0); Mean Corpuscular HGB Conc 28 gm/dL (32-36); Mean Corpuscular Hemoglobin 24 pg (26-34); Mean Corpuscular Volume 84 fL (80-100); Platelet Count* 281 K/uL (140-440); Red Blood Count 3.19 m/uL (4.00-5.20); White Blood Count* 4.76 K/uL (4.50-11.00)
[2023-05-17 07:11] LABS: Hemoglobin* 7.6 gm/dL (12.0-16.0); Slide Review Reflex No
[2023-05-17 07:15] LABS: Chloride* 103 mmol/L (96-114)
[2023-05-17 07:16] LABS: Albumin* 2.9 g/dL (3.3-5.0); Potassium* 3.6 mmol/L (3.6-5.1); Sodium* 136 mmol/L (135-149)
[2023-05-17 07:18] LABS: Creatinine* 0.8 mg/dL (0.5-1.5); Est. Creatinine Clearance* 42.59; Estimated Glomerular Filt Rate 80 ml/min
[2023-05-17 07:19] LABS: Anion Gap 3 mEq/L (7-15); Blood Urea Nitrogen* 13 mg/dL (7-30); Calcium* 7.9 mg/dL (8.4-10.6); Carbon Dioxide* 30 mmol/L (20-32); Glucose* 92 mg/dL (60-115); Magnesium* 2.1 mg/dL (1.5-2.6)
[2023-05-17 07:22] LABS: C Reactive Protein* 6.1 mg/dL (0.5-1.0)
--- NOTE | 2023-05-17 08:04 | PM.IMPN1 ---
Progress Note: A&P Assessment and plan (1) Enterococcal bacteremia: Problem details: -source is her skin breakdown -will order follow-up cultures -change ertapenem and vancomycin to IV daptomycin per ID consult -complete 7 days of IV antibiotics (1st day 05/15 at 0500; end afternoon 05/22) then switch to oral Linezolid for 7 days -remains COVID positive by antigen and PCR. This may delay TCU placement. -will check echocardiogram to rule out endocarditis -will check total CK and hold any statins secondary to the daptomycin order Status: Acute (2) COVID-19: Problem details: -complete Paxlovid course -date of pos test - unclear home positive. given paxlovid on 05/10 from our ED - unclear if she took this between 05/10 and presentation on 05/14. paxlovid treatment scheduled thru 05/17 - 9pm -antigen pos 05/17 and PCR positive 05/17. we only had a reported home pos on or about 05/09 -05/10 -coughing, phelgm treated symptomatically Status: Acute (3) Stage IV pressure ulcer of sacral region: Problem details: - This is a chronic ulcer for which she has failed outpatient treatment -however she has not been compliant with therapies/outpatient appts - Dr. Gonzáles was consulted through ED in 04/05, planned for OR debridement and patient refused. - wound care consulted on 05/14 -previous outpatient wound care at and then [place] -pt did not follow-thru with appts and will need alternative care options at discharge Status: Chronic (4) Cellulitis of gluteal region: Problem details: desquamation noted of both buttocks. warm; draining minimally on ertapenem,vanc, diflucan bacteremic w/gram - rods and gram + cocci Status: Acute (5) Iron deficiency 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: Problem details: - 7.6 -will transfuse 1 unit - per [facility] records: cbc and iron studies twice yearly as per Dr. Sapp of Oncology. we will test in [place] so she does not have to go to [place]. - 07/22/2022 hemoglobin 10 Status: Chronic (6) Diarrhea: Problem details: -added cholestyramine and imodium for stool control -covarrubias in place -wound care ongoing Status: Acute (7) Debility: Problem details: -chronic debility -BMI 50 -bacteremic and weak -requiring at least 2 maybe up to 3 staff for cares Status: Acute (8) Ulcers of both lower extremities with fat layer exposed: Problem details: -as above Status: Chronic (9) Chronic, continuous use of opioids: Problem details: - Per [facility] record: Reduced her MS Contin from 15 mg in the morning and 30 mg in the evening to 15 mg twice daily on 09/14/2022. Status: Acute (10) Essential hypertension: Problem details: - continue furosemide for HTN and lymphedema/LE edema Status: Chronic (11) Panniculitis: Problem details: topical nystatin oral diflucan wound care Status: Acute (12) Chronic acquired lymphedema: Problem details: wrapped Status: Chronic (13) Morbid obesity: Status: Chronic (14) CKD (chronic kidney disease), stage III: Problem details: -stable creatinine Status: Chronic (15) Bilateral leg weakness: Status: Chronic Subjective Date Seen: 05/17/23 Interval history: Daily Progress Note - Hospital Medicine Day #: 4 CC: entercoccus bacteremia, multiple wounds, morbid obesity and debility and weakness OVERNIGHT UPDATES FROM STAFF & MED, LAB, IMAGING UPDATES feels a bit overwhelmed, misisng her boyfriend, kids, home. Seems not to have insight into the seriousness of her wounds, bacteremia, anemia, COVID she refused PT/OT today. she just wants to get up, stand up, and sit in the recliner - but won't give full effort or attempt easy stand b/c I hurt all over RN Note: End of shift [id number]: Hesitant but cooperative with cares. Pt does call out with repositioning. Educated pt on importance and need for repositioning. Pt agreeable to turn and repo q2h. Denies pain at rest. Productive cough noted. Dressing to calves c/d/i. Sacral dressing c/d/i. Interdry under breasts. Nystatin placed in groin. Covarrubias in place and draining. Pt was able to rest and appeared comfortable through the night. wound care consult: Gracia Louise is a 67 year old female admitted to hospital to Med/surg this morning 06/12/23. Covid positive. Currently needing Wound Care consult for multiple chronic wounds. Of note patient has presented to [facility] in Past. Has since been discharged and transferred to [facility]. Unclear last appointment or current wound care orders. 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 In March 2023 was also seen here, at [facility] department. Consulted on by general surgery who recommended OR debridement that night. Patient declined treatment and was discharged home. Unclear how frequently patient has help in home, such as home care. States significant other assist with wounds at home. letter from [place] [facility]: May 10, 2023 Based on repeated failed appointments, which are necessary for your medical care, the [facility] has concluded it will no longer be able to provide medical services to you, for a period of six (6) months. This is in accordance with the Failed Appointment Policy that was previously provided to you. ? The failed appointments occurred on the following dates: February 09, 2023?policy provided to you February 23, 2023 March 04, 2023 May 10, 2023 ? All further appointments previously scheduled with the [facility] have been cancelled. You will need to find a new provider and schedule an appointment to discuss ongoing wound care needs. The [facility] provider will make recommendations regarding wound care for current wounds, should that be requested. In addition, we will transfer medical records to your new provider once written permission has been received from you. Please contact your health plan at the specific number located on the back of your insurance card to verify coverage for wound clinic services prior to appointment. ? Once the six (6) month period has ended on November 08, 2023, you or a referring provider may contact the [facility] to re-establish care. We look forward to partnering with you to meet your health care needs at that time. Afebrile 170/97, 151/86 Pulse 70s to 80s Respiratory rate 20, 18 95-93% on room air Weight is stable at 122 kilos CBC is stable with a known severe anemia, hemoglobin 7.6 today. Iron deficient. Platelet count 281 Chemistries normal, magnesium and phosphorus are normal CRP down trending SARs antigen positive 05/17, SARs PCR positive 05/17 Initial blood cultures 12/: 1 negative at 72 hours. The other growing Enterococcus faecalis. Superficial wound swab is showing E coli, Staph and Enterococcus No MRSA isolated Follow-up blood cultures are negative to date Urine culture pending Negative C diff Objective: tired appearing, disshelved. Vitals: see above Lungs: Clear. Cardiac: S1S2. Skin exam: large confluent desquamation of both her buttocks and calfs. drainage minimal. panniculitis with yeast overgrowth suspected. Pictures are available under nursing notes, all comments. Disposition/Potential discharge - Likely to return to previous living situation. Today I spent 50minutes seeing the patient, reviewing [facility]panse and EPIC notes/diagnostics, discussing the care plan with our care time that includes social work, PT/OT, pharmacy, RT, senior living and documenting my impressions and plan in the medical record. Exam Const: Vital Signs, click to edit/add: Vital Signs - 24 hr 05/16/23 11:00 05/16/23 15:00 05/16/23 15:00 Temperature 97.8 F 98 F Pulse Rate [Right Pulse Oximeter] 80 80 76 Respiratory Rate 18 18 18 Blood Pressure [Ri ght Arm] 168/94 H 159/89 H Blood Pressure [le ft forearm] Pulse Oximetry 93 93 Oxygen Delivery Me thod Room Air Room Air 05/16/23 20:20 05/16/23 22:53 05/17/23 03:00 Temperature 97.8 F 97.6 F 97.3 F L Pulse Rate [Right Pulse Oximeter] 80 76 78 Respiratory Rate 20 20 18 Blood Pressure [Ri ght Arm] 174/74 H 169/84 H 151/86 H Blood Pressure [le ft forearm] Pulse Oximetry 93 95 95 Oxygen Delivery Me thod Room Air Room Air Room Air 05/17/23 07:00 Temperature 97.9 F Pulse Rate [Right Pulse Oximeter] 85 Respiratory Rate 30 H Blood Pressure [Ri ght Arm] Blood Pressure [le ft forearm] 170/97 H Pulse Oximetry 93 Oxygen Delivery Me thod Room Air Labs Labs: Laboratory Results - last 24 hr 05/16/23 05/16/23 05/17/23 06:37 15:22 06:37 WBC 4.76 RBC 3.19 L Hgb 7.6 L* Hct 26.9 L MCV 84 MCH 24 L MCHC 28 L Plt Count 281 Sodium 137 136 Potassium 3.6 3.6 Chloride 102 103 Carbon Dioxide 32 30 Anion Gap 3 L 3 L BUN 16 13 Creatinine 1.0 0.8 Estimated Creat Clear 42.59 42.59 Estimated GFR 61 80 Glucose 93 92 Calcium 8.0 L 7.9 L Phosphorus 3.4 3.0 Magnesium 2.1 2.1 Iron 33 L TIBC 201 L % Saturation 17 L Total Bilirubin < 0.1 L AST 18 ALT 10 Alkaline Phosphatase 92 Troponin I < 0.01 L C-Reactive Protein 7.8 H 6.1 H NT-Pro-B Natriuret Pep 552 Total Protein 6.8 Albumin 2.9 L 2.9 L Procalcitonin 0.12 Lab Acknowledgement Test Added
[2023-05-17] MEDS: POTASSIUM CHLORIDE 10 MEQ CAPSULE ER PO (10:37)
[2023-05-17] MEDS: LACTOBACILLUS ACIDOPHILUS 1 TABLET 2 TAB PO ×3 (10:37→17:55)
[2023-05-17] MEDS: CHOLESTYRAMINE POWDER 4 GM PO ×2 (10:37→20:31)
[2023-05-17] MEDS: FUROSEMIDE 20 MG TABLET PO (10:38)
[2023-05-17] MEDS: FERROUS SULFATE 325 MG TABLET PO (10:38)
[2023-05-17] MEDS: FLUCONAZOLE 100 MG TABLET 200 MG PO (10:38)
[2023-05-17] MEDS: CITALOPRAM HYDROBROMIDE 20 MG TABLET PO (10:38)
[2023-05-17] MEDS: HEPARIN 5,000 UNIT/0.5 ML INJ 5000 UNIT SUBCUT ×2 (10:38→20:31)
[2023-05-17] MEDS: NYSTATIN CREAM 30 GM 1 APPLIC TOPICAL ×2 (10:40→20:30)
--- NOTE | 2023-05-17 11:22 | REH.OT ---
OT order received for eval. Pt. refused eval, stating she was in too much pain in her legs. Pt. was measured for lift chair in her room. She would need 22wide. Weight is 271# so would not need lift chair to be bariatric.
[2023-05-17 11:23] LABS: SARS Antigen* POSITIVE (Negative)
--- NOTE | 2023-05-17 11:26 | REH.OT ---
OT received order for Eval w/ Pt. Pt. refused eval, stating she had too much pain in her legs. Pt. was measured for a possible bariatric lift chair. Pt. is 22 wide at hips and 271#. A regular lift chair will work for her. Will reattempt OT evaluation.
[2023-05-17] MEDS: MORPHINE 4 MG/ML INJ IVP ×2 (12:18→18:54)
[2023-05-17] MEDS: SODIUM CHLORIDE 0.9 % (FLUSH) 10 ML SYRINGE 5 ML IVF ×3 (12:19→20:34)
[2023-05-17] MEDS: NYSTATIN POWDER 1 APPLIC TOPICAL ×2 (12:20→20:31)
[2023-05-17 14:01] LABS: SARS PCR* POSITIVE SARS-CoV-2 (Negative)
[2023-05-17 14:04] LABS: Creatine Kinase* < 20 U/L (41-117)
[2023-05-17 14:29] LABS: Appearance Urine Slightly Cloudy (Clear); Bilirubin Urine Negative (Negative); Blood Urine 2+ (Negative); Color Urine Yellow (Yellow); Glucose Urine Negative (Negative); Ketones Urine Negative (Negative); Leukocyte Esterase Urine Negative (Negative); Nitrite Urine Negative (Negative); Protein Urine Negative (Negative); Urobilinogen Urine 0.2 (0.2-1.0)
[2023-05-17] MEDS: DAPTOmycin 50 MG/ML inj 500 MG IVP (14:55)
[2023-05-17 15:02] LABS: Amorphous Sediment Urine Few; Bacteria Urine Moderate; Squamous Epithelial Cell Urine Few (None-Few); WBC Urine 0-2 (0-5)
--- NOTE | 2023-05-17 20:24 | PC.NURSE ---
Nursing Care Hours: [id number] Pt this shift alert and oriented. Majority of the shift pt remained calm and cooperative but refused PT and OT and refused to move into chair. Pt anxious prior and during dressing changes, turn and repositioning and the ECHO test. Therapeutic communication used, reaffirming pt pain and anxiety and allowing pt to make as many choices about cares as possible. Dressing changed to coccyx, wet to dry and abdominal pad placed over coccyx and bilat open sores on glutes. Medium loose BM cleaned, po care done. Gutierrez patent but low output. Billing Machine Operator encouraged pt to drink more fluids. Pt also refusing all meals but accepted and drank one protein Ensure. Morphine given x2 prior to dressing change and ECHO. Pt asked if she was getting too much morphine. Billing Machine Operator discussed with pt morphine order and safety as well as discussing the need to move and reposition and asking for pain relief more often if needed so that those goals can be accomplished. Bilat legs dressings changed d/t drainage.
[2023-05-18 03:00] VITALS: BP 154/75; PULSE 82; RESP 24; TEMP 36.1; O2SAT 95
--- NOTE | 2023-05-18 06:13 | PC.NURSE ---
Shift note: Pt has been in bed throughout the shift. Feeling very weak. Refused 2 hourly turn and reposition. Alert and oriented, vitally stable. Dressing clean and dry.
[2023-05-18 06:58] LABS: Hematocrit 30.3 % (33.0-51.0); Hemoglobin* 8.9 gm/dL (12.0-16.0); Mean Corpuscular HGB Conc 29 gm/dL (32-36); Mean Corpuscular Hemoglobin 25 pg (26-34); Mean Corpuscular Volume 84 fL (80-100); Platelet Count* 265 K/uL (140-440); Red Blood Count 3.61 m/uL (4.00-5.20); White Blood Count* 5.27 K/uL (4.50-11.00)
[2023-05-18 07:05] LABS: Slide Review Reflex No
[2023-05-18 07:07] LABS: Albumin* 2.9 g/dL (3.3-5.0); Chloride* 103 mmol/L (96-114); Sodium* 137 mmol/L (135-149)
[2023-05-18 07:10] LABS: Anion Gap 3 mEq/L (7-15); Blood Urea Nitrogen* 12 mg/dL (7-30); Carbon Dioxide* 31 mmol/L (20-32); Creatinine* 0.8 mg/dL (0.5-1.5); Est. Creatinine Clearance* 42.59; Estimated Glomerular Filt Rate 80 ml/min
[2023-05-18 07:11] LABS: Calcium* 8.2 mg/dL (8.4-10.6); Glucose* 108 mg/dL (60-115); Magnesium* 2.3 mg/dL (1.5-2.6); Phosphorus* 3.1 mg/dL (2.5-4.5)
[2023-05-18 07:13] LABS: C Reactive Protein* 5.9 mg/dL (0.5-1.0)
[2023-05-18 09:00] VITALS: BP 170/97; PULSE 88; RESP 20; TEMP 36.2; O2SAT 94
--- NOTE | 2023-05-18 09:50 | PM.GSCN ---
History of Present Illness Consult details Date Seen: 05/18/23 Consult date: 05/18/23 Narrative: Patient is known to this provider for history of chronic coccyx pressure ulcer and bilateral ulcers of the lower extremity secondary to lymphedema. She does have a history of non compliance and does not go to any wound center regularly or take care of her wounds. She was last seen by myself in March. At that time I recommended surgical debridement, which patient refused. She has continued to refuse many cares during this hospital stay. She presented to the ED via ambulance for weakness and was found to be COVID + and septic. Her wounds were evaluated and appeared worse than previous documentation, but not acutely infected. Hospitalist does note in documents dome cellulitis of the buttock. She also had new grade II ulcerations of the bilateral buttock. Blood cultures are positive for Enterococcus. Review of Systems Status of ROS: Reports: 6 or more systems reviewed and unremarkable except as noted in History and below [facility] Medical History (Updated 05/18/23 @ 14:43 by Denise Alas MD) Stage IV pressure ulcer of sacral region ?L89.154 - Pressure ulcer of sacral region, stage 4 (ICD-10) Chronic pain ?G89.29 - Other chronic pain (ICD-10) Recurrent depression ?F33.9 - Major depressive disorder, recurrent, unspecified (ICD-10) Panic attacks ?F41.0 - Panic disorder [episodic paroxysmal anxiety] (ICD-10) Insomnia ?G47.00 - Insomnia, unspecified (ICD-10) Restless legs syndrome ?G25.81 - Restless legs syndrome (ICD-10) Urge incontinence of urine ?N39.41 - Urge incontinence (ICD-10) Controlled substance agreement signed ?Z79.899 - Other penitentiary (current) drug therapy (ICD-10) Vitamin D deficiency ?E55.9 - Vitamin D deficiency, unspecified (ICD-10) MRSA (methicillin resistant staph aureus) culture positive (~12/05/15) ?Z22.322 - Carrier or suspected carrier of Methicillin resistant Staphylococcus aureus (ICD-10) Left ureteral stone (~12/11/15) ?N20.1 - Calculus of ureter (ICD-10) CKD (chronic kidney disease), stage III ?N18.30 - Chronic kidney disease, stage 3 unspecified (ICD-10) Acute osteomyelitis of coccyx (~08/2015) ?M46.28 - Osteomyelitis of vertebra, sacral and sacrococcygeal region (ICD-10) Ulcers of both lower extremities with fat layer exposed ?L97.912 - Non-pressure chronic ulcer of unspecified part of right lower leg with fat layer exposed (ICD-10) ?L97.922 - Non-pressure chronic ulcer of unspecified part of left lower leg with fat layer exposed (ICD-10) Iron deficiency 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 ?D50.1 - Sideropenic dysphagia (ICD-10) Acute kidney injury (~01/2015) ?N17.9 - Acute kidney failure, unspecified (ICD-10) Dysthymia ?F34.1 - Dysthymic disorder (ICD-10) Bilateral leg weakness ?R29.898 - Other symptoms and signs involving the musculoskeletal system (ICD-10) Chronic acquired lymphedema ?I89.0 - Lymphedema, not elsewhere classified (ICD-10) Chronic, continuous use of opioids ?F11.90 - Opioid use, unspecified, uncomplicated (ICD-10) Venous stasis ulcer of thigh with fat layer exposed ?I83.001 - Varicose veins of unspecified lower extremity with ulcer of thigh (ICD-10) ?L97.102 - Non-pressure chronic ulcer of unspecified thigh with fat layer exposed (ICD-10) Elevated TSH ?R79.89 - Other specified abnormal findings of blood chemistry (ICD-10) DJD (degenerative joint disease) of knee ?M17.9 - Osteoarthritis of knee, unspecified (ICD-10) Morbid obesity ?E66.01 - Morbid (severe) obesity due to excess calories (ICD-10) Essential hypertension ?I10 - Essential (primary) hypertension (ICD-10) Surgical History S/P debridement ?Z98.890 - Other specified postprocedural states (ICD-10) S/P ureteral stent placement ?Z96.0 - Presence of urogenital implants (ICD-10) Family History Brother Diabetes Cardiovascular disease Father Cardiovascular disease High blood pressure Sister High cholesterol High blood pressure Mother Dementia Social History Narrative: Lives independently. 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 Smoked an average of 0.3 packs per day for 2 years, quit in 1970. Denies alcohol use. Denies recreational drug use. Wishes to be full code. What is your current living situation?: I presently have a place to live Problems where you live: no known problems Problems where you live details: NA In the past 12 months, utilities in danger of being shut off: no In past 12 months, lack of transportation kept you from medical appts, meetings, work, or getting things needed for daily living: yes In the past 12 mos, have been you worried that your food would run out before you had money to buy more?: never true In the past 12 mos, the food you bought just didn't last and you didn't have money to buy more?: never true Highest level of school completed/degree received: 11th grade Smoking Status: Former smoker What tobacco products do you use: cigarettes Smoking quit date/years: >15 years ago Do you use any of these nicotine containing products: None How often do you have a drink containing alcohol: never AUDIT-C Alcohol total score: 0 Non-prescribed substance use: denies use Caffeine: No How often does anyone, including family, friends and others, physically hurt you: never How often does anyone, including family, friends and others, insult or talk down to you: rarely How often does anyone, including family, friends and others, threaten you with harm: never How often does anyone, including family, friends and others, scream or curse at you: never service: No Meds Home Medications and Allergies Home Medications Medication Instructions Recorded Confirmed Type acetaminophen 500 mg capsule 1,000 mg PO TID PRN 03/28/23 05/14/23 History ammonium lactate 12 % lotion (Skin 1 applic topical BID PRN 03/28/23 05/14/23 History Treatment) ascorbic acid (vitamin C) 1,000 mg 1 g PO DAILY 03/28/23 05/14/23 History capsule cholecalciferol (vitamin D3) 1,250 1,250 mcg PO 2XW 03/28/23 05/14/23 History mcg (50,000 unit) capsule (Weekly-D) citalopram 20 mg tablet 20 mg PO DAILY 03/28/23 05/14/23 History diphenhydramine HCl 25 mg capsule 25 mg PO Q6H PRN 03/28/23 05/14/23 History (Allergy (diphenhydramine)) ferrous sulfate 325 mg (65 mg 325 mg PO DAILY 03/28/23 05/14/23 History iron) tablet,delayed release furosemide 20 mg tablet 20 mg PO DAILY 03/28/23 05/14/23 History lidocaine 4 % topical cream 1 applic topical DAILY PRN 03/28/23 05/14/23 History dressing change lorazepam 0.5 mg tablet 0.5 mg PO BID PRN 03/28/23 05/14/23 History morphine 15 mg tablet,extended 15 mg PO BID PRN 03/28/23 05/14/23 History release ondansetron 4 mg disintegrating 4 mg PO Q8H PRN 03/28/23 05/14/23 History tablet polyethylene glycol 3350 17 17 g PO DAILY PRN 03/28/23 05/14/23 History gram/dose oral powder (Miralax) potassium chloride 10 mEq 10 meq PO DAILY 03/28/23 05/14/23 History tablet,extended release silver sulfadiazine 1 % topical 1 applic topical DAILY 03/28/23 05/14/23 History cream (SSD) triamcinolone acetonide 0.1 % 1 applic topical BID 03/28/23 05/14/23 History topical cream Allergies Allergy/AdvReac Type Severity Reaction Status Date / Time amoxicillin Allergy Unknown Verified 03/28/23 13:05 buspirone [From BuSpar] Allergy Unknown Verified 03/28/23 13:16 cephalexin [From Keflex] Allergy Unknown Verified 03/28/23 13:15 doxycycline Allergy Unknown Verified 03/28/23 13:15 latex Allergy Unknown Verified 03/28/23 13:15 lisinopril Allergy Unknown Verified 03/28/23 13:15 Penicillins Allergy Unknown Verified 03/28/23 13:15 Sulfa (Sulfonamide Allergy Unknown Verified 03/28/23 13:15 Antibiotics) Exam Narrative: Exam Narrative: Gen: alert and oriented, non toxic. Morbid obesity Resp: maintained on RA CV: well perfused : Bilateral pressure ulcers to dermis, large- measuring approx 15 x 10 cm on each side. NO overlying necrotic tissue in this area. Periwound with mild erythema, no significant induration. Desitin cream has been applied to the outer area. Coccyx pressure ulcer, stage IV. No significant fibrinous exudate within wound bed, no necrotic tissue requiring debridement, no noted purulence or undrained fluid collections. No surrounding erythema or induration. Dressing of Vashe soaked kerlix changed. Extremities: Severe lymphedema. Dressings remain in place. Const: Vital Signs, click to edit/add: Vital Signs - 24 hr 05/17/23 11:00 05/17/23 14:08 05/17/23 14:32 Temperature 98.5 F 98.5 F 98.7 F Pulse Rate 87 86 Pulse Rate [Right Pulse Oximeter] 87 Respiratory Rate 30 H 30 H 30 H Blood Pressure 164/85 H 169/87 H Blood Pressure [le ft forearm] 164/85 H Pulse Oximetry 95 Oxygen Delivery Me thod Room Air 05/17/23 15:00 05/17/23 15:00 05/17/23 15:17 Temperature 97.7 F 97.7 F Pulse Rate 77 Pulse Rate [Right Pulse Oximeter] 77 77 Respiratory Rate 28 H 28 H 28 H Blood Pressure 168/93 H Blood Pressure [le ft forearm] 168/93 H Pulse Oximetry 93 Oxygen Delivery Wa thod Room Air 05/17/23 16:17 05/17/23 19:00 05/17/23 23:00 Temperature 98.5 F 98 F Pulse Rate 84 Pulse Rate [Right Pulse Oximeter] 90 75 Respiratory Rate 28 H 24 24 Blood Pressure 172/82 H Blood Pressure [le ft forearm] 142/78 H Pulse Oximetry 95 Oxygen Delivery Wa thod Room Air 05/17/23 23:00 05/18/23 03:00 Temperature 97.7 F 97 F L Pulse Rate Pulse Rate [Right Pulse Oximeter] 75 82 Respiratory Rate 24 24 Blood Pressure Blood Pressure [le ft forearm] 136/70 154/75 H Pulse Oximetry 92 95 Oxygen Delivery Me thod Room Air Room Air Results Labs Labs: Abnormal lab results 05/17/23 05/17/23 05/17/23 Range/Units 06:37 07:08 10:35 RBC (4.00-5.20) m/uL Hgb (12.0-16.0) gm/dL Hct (33.0-51.0) % MCH (26-34) pg MCHC (32-36) gm/dL Anion Gap (7-15) mEq/L Calcium (8.4-10.6) mg/dL Total Creatine Kinase < 20 L (41-117) U/L C-Reactive Protein (0.5-1.0) mg/dL Albumin (3.3-5.0) g/dL Urine Appearance (Clear) Urine Blood (Negative) Urine RBC (0-2) Amorphous Sediment (None) Urine Bacteria (None) SARS-CoV-2 (PCR) (Negative) SARS-CoV-2 Ag (Rapid) POSITIVE A (Negative) Crossmatch (AHG) See Detail 05/17/23 05/18/23 Range/Units 12:14 06:38 RBC 3.61 L (4.00-5.20) m/uL Hgb 8.9 L (12.0-16.0) gm/dL Hct 30.3 L (33.0-51.0) % MCH 25 L (26-34) pg MCHC 29 L (32-36) gm/dL Anion Gap 3 L (7-15) mEq/L Calcium 8.2 L (8.4-10.6) mg/dL Total Creatine Kinase (41-117) U/L C-Reactive Protein 5.9 H (0.5-1.0) mg/dL Albumin 2.9 L (3.3-5.0) g/dL Urine Appearance Slightly Cloudy A (Clear) Urine Blood 2+ A (Negative) Urine RBC 2-5 A (0-2) Amorphous Sediment Few A (None) Urine Bacteria Moderate A (None) SARS-CoV-2 (PCR) POSITIVE SARS-CoV-2 A (Negative) SARS-CoV-2 Ag (Rapid) (Negative) Crossmatch (AHG) Diabetes panel 05/18/23 Range/Units 06:38 Sodium 137 (135-149) mmol/L Potassium 4.0 (3.6-5.1) mmol/L Chloride 103 (96-114) mmol/L Carbon Dioxide 31 (20-32) mmol/L BUN 12 (7-30) mg/dL Creatinine 0.8 (0.5-1.5) mg/dL Glucose 108 (60-115) mg/dL Calcium 8.2 L (8.4-10.6) mg/dL Albumin 2.9 L (3.3-5.0) g/dL Calcium panel 05/18/23 Range/Units 06:38 Calcium 8.2 L (8.4-10.6) mg/dL Phosphorus 3.1 (2.5-4.5) mg/dL Albumin 2.9 L (3.3-5.0) g/dL Pituitary panel 05/18/23 Range/Units 06:38 Sodium 137 (135-149) mmol/L Potassium 4.0 (3.6-5.1) mmol/L Chloride 103 (96-114) mmol/L Carbon Dioxide 31 (20-32) mmol/L BUN 12 (7-30) mg/dL Creatinine 0.8 (0.5-1.5) mg/dL Glucose 108 (60-115) mg/dL Calcium 8.2 L (8.4-10.6) mg/dL Adrenal panel 05/18/23 Range/Units 06:38 Sodium 137 (135-149) mmol/L Potassium 4.0 (3.6-5.1) mmol/L Chloride 103 (96-114) mmol/L Carbon Dioxide 31 (20-32) mmol/L BUN 12 (7-30) mg/dL Creatinine 0.8 (0.5-1.5) mg/dL Glucose 108 (60-115) mg/dL Calcium 8.2 L (8.4-10.6) mg/dL Albumin 2.9 L (3.3-5.0) g/dL All other labs normal. Imaging CT scan - pelvis: report reviewed and image reviewed Assessment and Plan Assessment and plan (1) Cellulitis of gluteal region: Problem comment: desquamation noted of both buttocks. warm; draining minimally on ertapenem,vanc, diflucan bacteremic w/gram - rods and gram + cocci Status: Acute Assessment and Plan: Stage II pressure ulcers of bilateral buttock.Agree with off loading as much as possible to promote healing. Is currently being dressed with Desitin and ABD, would add Xeroform to the open areas. Continue to change daily/more often as needed for soiling. No surgical debridement recommended. (2) Stage IV pressure ulcer of sacral region: Problem comment: - This is a chronic ulcer for which she has failed outpatient treatment -however she has not been compliant with therapies/outpatient appts - Dr. Gonzáles was consulted through ED in 04/05, planned for OR debridement and patient refused. - wound care consulted on 05/14 -previous outpatient wound care at and then [place] -pt did not follow-thru with appts and will need alternative care options at discharge Status: Chronic Plan Chronic stage IV pressure ulcer of coccyx. CT scan reviewed, no undrained pockets of infection seen. No imaging to support osteomyelitis. Labs are improving with no leukocytosis today. She continues on a course of antibiotics. Given the area involved and patient non compliance would not recommend placement of a wound vac and would continue with daily Vashe soaked packing. Change dressing daily/more often as needed for soiling. No surgical debridement recommended. Surgery to sign off. Please call with any questions or acute clinical changes.
--- NOTE | 2023-05-18 11:12 | REH.OT ---
OT attempted 2X for eval today. Pt. declined on first attempt stating she would participate after breakfast. Upon return Pt. stated that she was too weakn to participate. OT encouraged participation in order to get stronger and pt. declined again. Will reattempt eval tomorrow.
[2023-05-18] MEDS: FLUCONAZOLE 100 MG TABLET 200 MG PO (11:51)
[2023-05-18] MEDS: FUROSEMIDE 20 MG TABLET PO (11:52)
[2023-05-18] MEDS: LACTOBACILLUS ACIDOPHILUS 1 TABLET 2 TAB PO ×3 (11:53→18:15)
[2023-05-18] MEDS: CITALOPRAM HYDROBROMIDE 20 MG TABLET PO (11:54)
[2023-05-18] MEDS: CHOLESTYRAMINE POWDER 4 GM PO ×2 (11:54→21:15)
[2023-05-18] MEDS: SODIUM CHLORIDE 0.9 % (FLUSH) 10 ML SYRINGE 5 ML IVF ×3 (11:55→21:16)
[2023-05-18] MEDS: FERROUS SULFATE 325 MG TABLET PO (11:55)
[2023-05-18] MEDS: NYSTATIN CREAM 30 GM 1 APPLIC TOPICAL ×2 (11:56→21:16)
[2023-05-18] MEDS: POTASSIUM CHLORIDE 10 MEQ CAPSULE ER PO (11:56)
[2023-05-18] MEDS: NYSTATIN POWDER 1 APPLIC TOPICAL ×2 (11:56→21:16)
[2023-05-18] MEDS: HEPARIN 5,000 UNIT/0.5 ML INJ 5000 UNIT SUBCUT ×2 (11:57→21:15)
[2023-05-18 13:00] VITALS: BP 145/79; PULSE 83; RESP 20; TEMP 36.4; O2SAT 97
--- NOTE | 2023-05-18 13:48 | REH.PT ---
Attempted to see pt this pm for PT. Per RN, pt has not been cooperative today and is requesting to rest. PT will follow up.
[2023-05-18] MEDS: ACETAMINOPHEN 500 MG TABLET 1000 MG PO ×2 (13:56→21:14)
[2023-05-18] MEDS: DAPTOmycin 50 MG/ML inj 500 MG IVP (13:56)
[2023-05-18] MEDS: MORPHINE 4 MG/ML INJ IVP (14:16)
--- NOTE | 2023-05-18 14:26 | P.IMPN_ITS ---
Progress Note: A&P Assessment and plan (1) Enterococcal bacteremia: Problem details: -source is her skin breakdown -follow-up blood cultures are negative to date -change ertapenem and vancomycin to IV daptomycin per ID consult -complete 7 days of IV antibiotics (1st day 05/15 at 0500; end afternoon 05/22) then switch to oral Linezolid for 7 days -remains COVID positive by antigen and PCR. This may delay TCU placement. -TTE negative for obvious vegetation Status: Acute (2) COVID-19: Problem details: -completed 5 day Paxlovid course on 05/17 at 9:00 p.m. -date of pos test - unclear home positive. given paxlovid on 05/10 from our ED - unclear if she took this between 05/10 and presentation on 05/14. -antigen pos 05/17 and PCR positive 05/17. we only had a reported home pos on or about 05/09 -05/10 -coughing, phelgm treated symptomatically Status: Acute (3) Stage IV pressure ulcer of sacral region: Problem details: - This is a chronic ulcer for which she has failed outpatient treatment -however she has not been compliant with therapies/outpatient appts - Dr. Gonzáles was consulted through ED in 04/05, planned for OR debridement and patient refused. - wound care consulted on 05/14 - previous outpatient wound care at and then [facility] -pt did not follow-thru with appts and will need alternative care options at discharge Status: Chronic (4) Cellulitis of gluteal region: Problem details: desquamation noted of both buttocks. 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 Status: Acute (10) Essential hypertension: Problem details: - continue furosemide for HTN and lymphedema/LE edema Status: Chronic (11) Panniculitis: Problem details: topical nystatin oral diflucan x 7 days (stop date in the EMR order) wound care Status: Acute (12) Chronic acquired lymphedema: Problem details: wrapped Status: Chronic (13) Morbid obesity: Status: Chronic (14) CKD (chronic kidney disease), stage III: Problem details: -stable creatinine Status: Chronic (15) Bilateral leg weakness: Status: Chronic Subjective Date Seen: 05/18/23 Interval history: Daily Progress Note - Hospital Medicine Day #: 5 CC: COVID URI, entercoccus bacteremia, multiple wounds, morbid obesity and debility and weakness OVERNIGHT UPDATES FROM STAFF & MED, LAB, IMAGING UPDATES feels a bit overwhelmed, missing her boyfriend, kids, home. Seems not to have insight into the seriousness of her wounds, bacteremia, anemia, COVID she refused PT/OT again today. RN Note: Shift note: Pt has been in bed throughout the shift. Feeling very weak. Refused 2 hourly turn and reposition. Alert and oriented, vitally stable. Dressing clean and dry. Hemoglobin increased to 8.9 s/p 1 unit of PRBCs on 05/17 Total white blood cell count, 5.27 CRP is down trending New sets of blood cultures drawn on 05/17 are negative to date Urine culture is negative No MRSA Original blood cultures 1 is negative, 1 is growing Enterococcus Wound culture is growing E coli, Staph aureus and, E faecalis Echo 05/17/2023 Normal LV size, mild increased wall thickness. Hyperdynamic global systolic function with an EF greater than 75%. Normal right ventricular assessment. Incomplete assessment of all valves but there was no hemodynamically regurgitant lesions on this limited study. wound care consult: Gracia Louise is a 67 year old female admitted to hospital to Med/surg this morning 06/12/23. Covid positive. Currently needing Wound Care consult for multiple chronic wounds. Of note patient has presented to [facility] in Past. Has since been discharged and transferred to [facility]. Unclear last appointment or current wound care orders. 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 In March 2023 was also seen here, at [facility] department. Consulted on by general surgery who recommended OR debridement that night. Patient declined treatment and was discharged home. Unclear how frequently patient has help in home, such as home care. States significant other assist with wounds at home. letter from [facility]: May 10, 2023 Based on repeated failed appointments, which are necessary for your medical care, the [facility] has concluded it will no longer be able to provide medical services to you, for a period of six (6) months. This is in accordance with the Failed Appointment Policy that was previously provided to you. ? The failed appointments occurred on the following dates: * February 09, 2023?policy provided to you * February 23, 2023 * March 04, 2023 * May 10, 2023 ? All further appointments previously scheduled with the [facility] have been cancelled. You will need to find a new provider and schedule an appointment to discuss ongoing wound care needs. The [facility] provider will make recommendations regarding wound care for current wounds, should that be requested. In addition, we will transfer medical records to your new provider once written permission has been received from you. Please contact your health plan at the specific number located on the back of your insurance card to verify coverage for wound clinic services prior to appointment. ? Once the six (6) month period has ended on November 08, 2023, you or a referring provider may contact the [facility] to re- establish care. We look forward to partnering with you to meet your health care needs at that time. Afebrile 170/97, 151/86 Pulse 70s to 80s Respiratory rate 20, 18 95-93% on room air Weight is stable at 122 kilos SARs antigen positive 05/17, SARs PCR positive 05/17 Negative C diff Objective: tired appearing, disshelved. Vitals: see above Lungs: Clear. Cardiac: S1S2. Skin exam: large confluent desquamation of both her buttocks and calfs. drainage minimal. panniculitis with yeast overgrowth suspected. Pictures are available under nursing notes, all comments. Disposition/Potential discharge - Likely to return to previous living situation. Today I spent 50minutes seeing the patient, reviewing [facility]pan[facility] and EPIC notes/diagnostics, discussing the care plan with our care time that includes social work, PT/OT, pharmacy, RT, group home and documenting my impressions and plan in the medical record. Exam Const: Vital Signs, click to edit/add: Vital Signs - 24 hr 05/17/23 14:32 05/17/23 15:00 05/17/23 15:00 Temperature 98.7 F 97.7 F Pulse Rate 86 Pulse Rate [Right Pulse Oximeter] 77 77 Respiratory Rate 30 H 28 H 28 H Blood Pressure 169/87 H Blood Pressure [le ft forearm] 168/93 H Pulse Oximetry 93 Oxygen Delivery Mn thod Room Air 05/17/23 15:17 05/17/23 16:17 05/17/23 19:00 Temperature 97.7 F 98.5 F 98 F Pulse Rate 77 84 Pulse Rate [Right Pulse Oximeter] 90 Respiratory Rate 28 H 28 H 24 Blood Pressure 168/93 H 172/82 H Blood Pressure [le ft forearm] 142/78 H Pulse Oximetry 95 Oxygen Delivery Mn thod Room Air 05/17/23 23:00 05/17/23 23:00 05/18/23 03:00 Temperature 97.7 F 97 F L Pulse Rate Pulse Rate [Right Pulse Oximeter] 75 75 82 Respiratory Rate 24 24 24 Blood Pressure Blood Pressure [le ft forearm] 136/70 154/75 H Pulse Oximetry 92 95 Oxygen Delivery Mn thod Room Air Room Air 05/18/23 09:00 05/18/23 13:00 Temperature 97.1 F L 97.6 F Pulse Rate Pulse Rate [Right Pulse Oximeter] 88 83 Respiratory Rate 20 20 Blood Pressure Blood Pressure [le ft forearm] 170/97 H 145/79 H Pulse Oximetry 94 97 Oxygen Delivery Mn thod Room Air Room Air Labs Labs: Laboratory Results - last 24 hr 05/17/23 05/17/23 05/18/23 07:08 12:14 06:38 WBC 5.27 RBC 3.61 L Hgb 8.9 L Hct 30.3 L MCV 84 MCH 25 L MCHC 29 L Plt Count 265 Sodium 137 Potassium 4.0 Chloride 103 Carbon Dioxide 31 Anion Gap 3 L BUN 12 Creatinine 0.8 Estimated Creat Clear 42.59 Estimated GFR 80 Glucose 108 Calcium 8.2 L Phosphorus 3.1 Magnesium 2.3 C-Reactive Protein 5.9 H Albumin 2.9 L Urine Color Yellow Urine Appearance Slightly Cloudy A Urine pH 5.0 Ur Specific [place] 1.020 Urine Protein Negative Urine Glucose (UA) Negative Urine Ketones Negative Urine Blood 2+ A Urine Nitrite Negative Urine Bilirubin Negative Urine Urobilinogen 0.2 Ur Leukocyte Esterase Negative Urine RBC 2-5 A Urine WBC 0-2 Ur Squamous Epith Cells Few Amorphous Sediment Few A Urine Bacteria Moderate A Crossmatch (AHG) See Detail
[2023-05-18 16:00] VITALS: BP 114/67; PULSE 82; RESP 20; TEMP 36.1; O2SAT 92
--- NOTE | 2023-05-18 16:38 | PC.NURSE ---
Pt continues to refuse PT and turning/repositioning from nsg staff. Takes her meds one at a time, large pills need to be cut in half. She uses water in a glass with a straw for pills. Pt slept in this morning. Poor appetite Ensure, fruit and vanilla pudding. Recommended protein for wound healing and pt declined. Pt received IV Morphine 4mg in preparation for dressing change with Dr. Gonzáles at shift change. Pt became very anxious and cried out in pain when 4 people tried to reposition her to her side during the cleansing and dressing process. Small soft BM. Dr. Gonzáles packed the old cyst site at apex of pt's gluteal fold, she completed right buttocks drsg change and primary RN completed left buttocks dressing change with assist of oncoming shift RN Shonda Rodriguez and Dr. Denise Alas. Hospitalist showed Gracia photographs of her existing wounds and encouraged her to become more active and participate in her cares as she is able. Covid precautions continue per protocol.
[2023-05-18 19:05] VITALS: BP 118/66; PULSE 86; RESP 20; TEMP 36.2; O2SAT 97
--- NOTE | 2023-05-18 22:18 | PC.NURSE ---
Shift [id number]- Patient tolerates movement very poorly. She refuses repositioning, education and encouragement provided- refusal becomes more adamant if pressed. She makes statements like: I've been moving around in bed or I'm in a good spot now. Bandages changed this afternoon with Dr. Gonzáles. Bilateral lower extremity bandages remain in place.
[2023-05-19] VITALS (9 sets, daily range): BP systolic 117–164; BP diastolic 58–86; PULSE 73–91; RESP 18–22; TEMP 36.1–36.6; O2SAT 92–96
--- NOTE | 2023-05-19 08:08 | PC.NURSE ---
Pt alert and oriented x3. Afebrile. On room air. Pt reports pain only when repositioning but reports it stops once she is sitting still again. Pt denies chest pain, SOB, and N/V. Pt was turned and repositioned over night x2 pt refused x1 stating I don't want to I'm so tired RN gave education on benefits of repositioning and to help avoid making the ulcers she already has worse, Pt states No. That won't happen, it's fine. I am comfortable. I don't want to move. Pt had around 100ml of fluids overnight, updated. RN stressed importance of hydration and education on dehydration effects. Pt will drink few sips of water when prompted but often refuses stating I am done, I can't drink anymore. Your cups are awful where are the castrejon cups. I don't want to drink out of the blue cup RN attempted to find said castrejon cups and asked charge nurse and staff but could not locate castrejon cups. RN brought in the cups that are available on unit but pt refused as they were not the castrejon cups. RN passed information on to Oncoming RN. Pt's buttock wound dressing at end of shift had small amount of serosanguineous drainage changed gauze pad. Pt's lower extremity dressing CDI. Pt slept throughout most of shift.
[2023-05-19] MEDS: CHOLESTYRAMINE POWDER 4 GM PO ×2 (10:14→20:25)
[2023-05-19] MEDS: FLUCONAZOLE 100 MG TABLET 200 MG PO (10:14)
[2023-05-19] MEDS: POTASSIUM CHLORIDE 10 MEQ CAPSULE ER PO (10:15)
[2023-05-19] MEDS: FERROUS SULFATE 325 MG TABLET PO (10:15)
[2023-05-19] MEDS: LACTOBACILLUS ACIDOPHILUS 1 TABLET 2 TAB PO ×3 (10:15→17:43)
[2023-05-19] MEDS: ACETAMINOPHEN 500 MG TABLET 1000 MG PO ×3 (10:16→20:24)
[2023-05-19] MEDS: FUROSEMIDE 20 MG TABLET PO (10:16)
[2023-05-19] MEDS: CITALOPRAM HYDROBROMIDE 20 MG TABLET PO (10:17)
[2023-05-19] MEDS: HEPARIN 5,000 UNIT/0.5 ML INJ 5000 UNIT SUBCUT ×2 (10:17→20:24)
[2023-05-19] MEDS: NYSTATIN CREAM 30 GM 1 APPLIC TOPICAL ×3 (10:18→20:25)
[2023-05-19] MEDS: SODIUM CHLORIDE 0.9 % (FLUSH) 10 ML SYRINGE 5 ML IVF ×3 (10:18→20:26)
[2023-05-19] MEDS: NYSTATIN POWDER 1 APPLIC TOPICAL ×2 (10:18→20:25)
--- NOTE | 2023-05-19 13:43 | PM.IMPN1 ---
Progress Note: A&P Assessment and plan (1) Enterococcal bacteremia: Problem details: -source is her skin breakdown -follow-up blood cultures are negative to date -change ertapenem and vancomycin to IV daptomycin per ID consult -complete 7 days of IV antibiotics (1st day 05/15 at 0500; end afternoon 05/22) then switch to oral Linezolid for 7 days -remains COVID positive by antigen and PCR. This may delay TCU placement. -TTE negative for obvious vegetation Status: Acute (2) COVID-19: Problem details: -completed 5 day Paxlovid course on 05/17 at 9:00 p.m. -date of pos test - unclear home positive. given paxlovid on 05/10 from our ED - unclear if she took this between 05/10 and presentation on 05/14. -antigen pos 05/17 and PCR positive 05/17. we only had a reported home pos on or about 05/09 -05/10 -coughing, phelgm treated symptomatically Status: Acute (3) Stage IV pressure ulcer of sacral region: Problem details: - This is a chronic ulcer for which she has failed outpatient treatment -however she has not been compliant with therapies/outpatient appts - Dr. Gonzáles was consulted through ED in 04/05, planned for OR debridement and patient refused. - wound care consulted on 05/14 - previous outpatient wound care at and then [facility] -pt did not follow-thru with appts and will need alternative care options at discharge Status: Chronic (4) Cellulitis of gluteal region: Problem details: desquamation noted of both buttocks. 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 Status: Acute (10) Essential hypertension: Problem details: - continue furosemide for HTN and lymphedema/LE edema Status: Chronic (11) Panniculitis: Problem details: topical nystatin oral diflucan x 7 days (stop date in the EMR order) wound care Status: Acute (12) Chronic acquired lymphedema: Problem details: wrapped Status: Chronic (13) Morbid obesity: Status: Chronic (14) CKD (chronic kidney disease), stage III: Problem details: -stable creatinine Status: Chronic (15) Bilateral leg weakness: Status: Chronic Subjective Date Seen: 05/19/23 Interval history: Daily Progress Note - Hospital Medicine Day #: 6 CC: COVID URI, entercoccus bacteremia, multiple wounds, morbid obesity and debility and weakness OVERNIGHT UPDATES FROM STAFF & MED, LAB, IMAGING UPDATES Much improved today. with support/encouragement and walker she got up on the side of the bed and took steps to the recliner. Cough and covid achiness is much improved. 164/86. pulse 91. resp 21. afebrile. 95% on RA. No new labs. Micro reviewed. Hemoglobin increased to 8.9 s/p 1 unit of PRBCs on 05/17 Total white blood cell count, 5.27 CRP is down trending New sets of blood cultures drawn on 05/17 are negative to date Urine culture is negative No MRSA Original blood cultures 1 is negative, 1 is growing Enterococcus Wound culture is growing E coli, Staph aureus and, E faecalis Echo 05/17/2023 Normal LV size, mild increased wall thickness. Hyperdynamic global systolic function with an EF greater than 75%. Normal right ventricular assessment. Incomplete assessment of all valves but there was no hemodynamically regurgitant lesions on this limited study. wound care consult: Gracia Louise is a 67 year old female admitted to hospital to Med/surg this morning 06/12/23. Covid positive. Currently needing Wound Care consult for multiple chronic wounds. Of note patient has presented to [facility] in Past. Has since been discharged and transferred to [facility]. Unclear last appointment or current wound care orders. 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 In March 2023 was also seen here, at [facility] department. Consulted on by general surgery who recommended OR debridement that night. Patient declined treatment and was discharged home. Unclear how frequently patient has help in home, such as home care. States significant other assist with wounds at home. letter from [facility] wound care: May 10, 2023 Based on repeated failed appointments, which are necessary for your medical care, the [facility] has concluded it will no longer be able to provide medical services to you, for a period of six (6) months. This is in accordance with the Failed Appointment Policy that was previously provided to you. ? The failed appointments occurred on the following dates: February 09, 2023?policy provided to you February 23, 2023 March 04, 2023 May 10, 2023 ? All further appointments previously scheduled with the [facility] have been cancelled. You will need to find a new provider and schedule an appointment to discuss ongoing wound care needs. The [facility] provider will make recommendations regarding wound care for current wounds, should that be requested. In addition, we will transfer medical records to your new provider once written permission has been received from you. Please contact your health plan at the specific number located on the back of your insurance card to verify coverage for wound clinic services prior to appointment. ? Once the six (6) month period has ended on November 08, 2023, you or a referring provider may contact the [facility] to re-establish care. We look forward to partnering with you to meet your health care needs at that time. Afebrile 170/97, 151/86 Pulse 70s to 80s Respiratory rate 20, 18 95-93% on room air Weight is stable at 122 kilos SARs antigen positive 05/17, SARs PCR positive 05/17 Negative C diff Objective: tired appearing, disshelved. Vitals: see above Lungs: Clear. Cardiac: S1S2. Skin exam: large confluent desquamation of both her buttocks and calfs. drainage minimal. panniculitis with yeast overgrowth suspected. Pictures are available under nursing notes, all comments. Disposition/Potential discharge - Likely to return to previous living situation. Today I spent 50minutes seeing the patient, reviewing Expanse and EPIC notes/diagnostics, discussing the care plan with our care time that includes social work, PT/OT, pharmacy, RT, jail and documenting my impressions and plan in the medical record. Exam Const: Vital Signs, click to edit/add: Vital Signs - 24 hr 05/18/23 16:00 05/18/23 19:05 05/19/23 00:00 Temperature 97 F L 97.1 F L Pulse Rate [Right Pulse Oximeter] 82 86 73 Respiratory Rate 20 20 22 Blood Pressure [Ri ght Arm] Blood Pressure [le ft forearm] 114/67 118/66 Pulse Oximetry 92 97 Oxygen Delivery Me thod Room Air Room Air 05/19/23 00:00 05/19/23 03:00 05/19/23 08:02 Temperature 97.8 F 97.9 F 97.1 F L Pulse Rate [Right Pulse Oximeter] 73 77 77 Respiratory Rate 22 20 18 Blood Pressure [Ri ght Arm] 157/77 H 155/77 H 147/75 H Blood Pressure [le ft forearm] Pulse Oximetry 92 94 96 Oxygen Delivery Me thod Room Air Room Air Room Air 05/19/23 08:04 05/19/23 10:37 Temperature 97.5 F L Pulse Rate [Right Pulse Oximeter] 77 91 Respiratory Rate 18 21 Blood Pressure [Ri ght Arm] 164/86 H Blood Pressure [le ft forearm] Pulse Oximetry 95 Oxygen Delivery Me thod Room Air
[2023-05-19] MEDS: DAPTOmycin 50 MG/ML inj 500 MG IVP (13:48)
--- NOTE | 2023-05-19 18:19 | PC.NURSE ---
end of shift. pt has been better today. she is alert and oriented x3. no pain unless moving. she was turned and repositioned prn. she got up with OT to the the chair with 3-4 assist. walker and GB. Covarrubias was accidently pulled out. new covarrubias was started, SL is patent. Pt's buttock wound dressing done and calf dressing done. she did enjoy the chair for a few hours. she does not like to be turned and repositioned. she is on covid precautions. she is able to use call light
[2023-05-20] VITALS (7 sets, daily range): BP systolic 122–140; BP diastolic 65–95; PULSE 80–90; RESP 18–20; TEMP 36.1–36.8; O2SAT 91–96
--- NOTE | 2023-05-20 05:01 | PC.NURSE ---
Patient A&O, VSS and afebrile overnight. Patient continuously refused repositioning even with encouragement and education on worsening pressure sores. Denied having any pain, nausea or dizziness. O2 maintained on RA overnight. Gutierrez catheter patent draining clear, yellow urine. Total output 300 this shift. PIV in left hand SL C/D/I. Slept well in between cares. Powders and creams applied to breast folds, abdominal folds and pannus/groin folds excoriations per MAR.
[2023-05-20] MEDS: FERROUS SULFATE 325 MG TABLET PO (09:44)
[2023-05-20] MEDS: POTASSIUM CHLORIDE 10 MEQ CAPSULE ER PO (09:44)
[2023-05-20] MEDS: CHOLESTYRAMINE POWDER 4 GM PO (09:44)
[2023-05-20] MEDS: LACTOBACILLUS ACIDOPHILUS 1 TABLET 2 TAB PO ×3 (09:44→17:38)
[2023-05-20] MEDS: FLUCONAZOLE 100 MG TABLET 200 MG PO (09:45)
[2023-05-20] MEDS: FUROSEMIDE 20 MG TABLET PO (09:45)
[2023-05-20] MEDS: HEPARIN 5,000 UNIT/0.5 ML INJ 5000 UNIT SUBCUT ×2 (09:46→20:57)
[2023-05-20] MEDS: CITALOPRAM HYDROBROMIDE 20 MG TABLET PO (09:46)
[2023-05-20] MEDS: ACETAMINOPHEN 500 MG TABLET 1000 MG PO ×3 (09:46→20:56)
[2023-05-20] MEDS: SODIUM CHLORIDE 0.9 % (FLUSH) 10 ML SYRINGE 5 ML IVF ×2 (09:47→20:58)
[2023-05-20] MEDS: NYSTATIN POWDER 1 APPLIC TOPICAL ×2 (09:47→20:57)
[2023-05-20] MEDS: NYSTATIN CREAM 30 GM 1 APPLIC TOPICAL ×3 (09:47→20:57)
[2023-05-20] MEDS: DAPTOmycin 50 MG/ML inj 500 MG IVP (13:56)
--- NOTE | 2023-05-20 14:48 | PC.NURSE ---
End of Shift Note: Patient did poorly getting up to the chair today. With the assistance of 3 people we did make it too the chair. Used the EZ stand on her to get back to bed but this also was a struggle. Had 4 people into assistance with her dressing change as she is not able to turn from side to side on her own. Screams out with all cares as she is afraid she is going to fall. Even with reassurance it does not help her much as she still screams. She was medicated for pain with morphine and tyle and does not get much relief but once she is settled into a spot she is fine. Has not taken in much and will have to empty her covarrubias yet. Will continue to monitor.
--- NOTE | 2023-05-20 15:03 | P.IMPN_ITS ---
Progress Note: A&P Assessment and plan (1) Enterococcal bacteremia: Problem details: -source is her skin breakdown -follow-up blood cultures are negative to date -change ertapenem and vancomycin to IV daptomycin per ID consult -complete 7 days of IV antibiotics (1st day 05/15 at 0500; end afternoon 05/22) then switch to oral Linezolid for 7 days -remains COVID positive by antigen and PCR. This may delay TCU placement. -TTE negative for obvious vegetation Status: Acute (2) COVID-19: Problem details: -completed 5 day Paxlovid course on 05/17 at 9:00 p.m. -date of pos test - unclear home positive. given paxlovid on 05/10 from our ED - unclear if she took this between 05/10 and presentation on 05/14. -antigen pos 05/17 and PCR positive 05/17. we only had a reported home pos on or about 05/09 -05/10 -coughing, phelgm treated symptomatically Status: Acute (3) Stage IV pressure ulcer of sacral region: Problem details: - This is a chronic ulcer for which she has failed outpatient treatment -however she has not been compliant with therapies/outpatient appts - Dr. Gonzáles was consulted through ED in 04/05, planned for OR debridement and patient refused. Dr. Gonzáles reevaluated 05/18 - no surgery indicated. - previous outpatient wound care at and then [facility] -pt did not follow-thru with appts and will need alternative care options at discharge (will need SNF initially) Status: Chronic (4) Cellulitis of gluteal region: Problem details: desquamation noted of both buttocks. 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 Status: Acute (10) Essential hypertension: Problem details: - continue furosemide for HTN and lymphedema/LE edema Status: Chronic (11) Panniculitis: Problem details: topical nystatin oral diflucan x 7 days (stop date in the EMR order) wound care Status: Acute (12) Chronic acquired lymphedema: Problem details: wrapped Status: Chronic (13) Morbid obesity: Status: Chronic (14) CKD (chronic kidney disease), stage III: Problem details: -stable creatinine Status: Chronic (15) Bilateral leg weakness: Status: Chronic Subjective Date Seen: 05/20/23 Interval history: Daily Progress Note - Hospital Medicine Day #: 7 CC: COVID URI, entercoccus bacteremia, multiple wounds, morbid obesity and debility and weakness OVERNIGHT UPDATES FROM STAFF & MED, LAB, IMAGING UPDATES yesterday was a better day for her; she did get up to the chair but felt weaker; used easy stand to return to bed; cries out in pain/frustration. 164/86. pulse 91. resp 21. afebrile. 95% on RA. No new labs. Micro reviewed. Hemoglobin increased to 8.9 s/p 1 unit of PRBCs on 05/17 Total white blood cell count, 5.27 CRP is down trending New sets of blood cultures drawn on 05/17 are negative to date Urine culture is negative No MRSA Original blood cultures 1 is negative, 1 is growing Enterococcus Wound culture is growing E coli, Staph aureus and, E faecalis Echo 05/17/2023 Normal LV size, mild increased wall thickness. Hyperdynamic global systolic function with an EF greater than 75%. Normal right ventricular assessment. Incomplete assessment of all valves but there was no hemodynamically regurgitant lesions on this limited study. wound care consult: Gracia Louise is a 67 year old female admitted to hospital to Med/surg this morning 06/12/23. Covid positive. Currently needing Wound Care consult for multiple chronic wounds. Of note patient has presented to [facility] in Past. Has since been discharged and transferred to [facility]. Unclear last appointment or current wound care orders. 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 In March 2023 was also seen here, at [facility] department. Consulted on by general surgery who recommended OR debridement that night. Patient declined treatment and was discharged home. Unclear how frequently patient has help in home, such as home care. States significant other assist with wounds at home. letter from [facility]: May 10, 2023 Based on repeated failed appointments, which are necessary for your medical care, the [facility] has concluded it will no longer be able to provide medical services to you, for a period of six (6) months. This is in accordance with the Failed Appointment Policy that was previously provided to you. ? The failed appointments occurred on the following dates: * February 09, 2023?policy provided to you * February 23, 2023 * March 04, 2023 * May 10, 2023 ? All further appointments previously scheduled with the [facility] have been cancelled. You will need to find a new provider and schedule an appointment to discuss ongoing wound care needs. The [facility] provider will make recommendations regarding wound care for current wounds, should that be requested. In addition, we will transfer medical records to your new provider once written permission has been received from you. Please contact your health plan at the specific number located on the back of your insurance card to verify coverage for wound clinic services prior to appointment. ? Once the six (6) month period has ended on November 08, 2023, you or a referring provider may contact the [facility] to re- establish care. We look forward to partnering with you to meet your health care needs at that time. Afebrile 170/97, 151/86 Pulse 70s to 80s Respiratory rate 20, 18 95-93% on room air Weight is stable at 122 kilos SARs antigen positive 05/17, SARs PCR positive 05/17 Negative C diff Objective: tired appearing, disshelved. Vitals: see above Lungs: Clear. Cardiac: S1S2. Skin exam: large confluent desquamation of both her buttocks and calfs. drainage minimal. panniculitis with yeast overgrowth suspected. Pictures are available under nursing notes, all comments. Disposition/Potential discharge - Likely to return to previous living situation. Today I spent 50minutes seeing the patient, reviewing Expanse and EPIC notes/diagnostics, discussing the care plan with our care time that includes social work, PT/OT, pharmacy, RT, care home and documenting my impressions and plan in the medical record. Exam Const: Vital Signs, click to edit/add: Vital Signs - 24 hr 05/19/23 15:55 05/19/23 15:57 05/19/23 19:00 Temperature 97.0 F L 97.3 F L Pulse Rate [Right Pulse Oximeter] 90 90 88 Respiratory Rate 18 18 20 Blood Pressure [Ri ght Arm] 138/84 117/65 Blood Pressure [le ft forearm] Pulse Oximetry 95 94 Oxygen Delivery Me thod Room Air Room Air 05/19/23 23:00 05/19/23 23:00 05/20/23 03:00 Temperature 97 F L 97 F L Pulse Rate [Right Pulse Oximeter] 88 80 82 Respiratory Rate 20 20 18 Blood Pressure [Ri ght Arm] 119/58 L 127/68 Blood Pressure [le ft forearm] Pulse Oximetry 92 92 Oxygen Delivery Ks thod Room Air Room Air 05/20/23 07:00 05/20/23 07:00 05/20/23 11:00 Temperature 97.9 F 97.9 F Pulse Rate [Right Pulse Oximeter] 82 90 Respiratory Rate 18 20 20 Blood Pressure [Ri ght Arm] Blood Pressure [le ft forearm] 140/66 H 139/79 Pulse Oximetry 91 92 Oxygen Delivery Ks thod Room Air Room Air
--- NOTE | 2023-05-20 22:23 | PC.NURSE ---
End of Shift: Afebrile. Rating pain in tailbone 5/10 and scheduled medications given. Frequent turn and reposition, patient occasionally declines repositioning, education provided. Declined to get up in chair this shift. Tolerating regular diet with no nausea. Gutierrez patent. O2 sats greater than 90% on room air.
[2023-05-21 03:15] VITALS: BP 148/83; PULSE 90; RESP 20; TEMP 36.5; O2SAT 93
--- NOTE | 2023-05-21 06:35 | PC.NURSE ---
: T&R as pt allows. Encouraging fluids. VSS. No BM. Dressing to BLE CDI. Pt refused assessment of sacrum and buttock, pt stated ?do you know what time it is?!? and refused further cares.
[2023-05-21 07:28] LABS: Hematocrit 30.7 % (33.0-51.0); Mean Corpuscular HGB Conc 29 gm/dL (32-36); Mean Corpuscular Hemoglobin 25 pg (26-34); Mean Corpuscular Volume 86 fL (80-100); Platelet Count* 291 K/uL (140-440); Red Blood Count 3.59 m/uL (4.00-5.20); White Blood Count* 5.16 K/uL (4.50-11.00)
[2023-05-21 07:37] LABS: Slide Review Reflex No
[2023-05-21 07:41] LABS: Chloride* 101 mmol/L (96-114); Potassium* 4.9 mmol/L (3.6-5.1); Sodium* 136 mmol/L (135-149)
[2023-05-21 07:44] LABS: Anion Gap 1 mEq/L (7-15); Blood Urea Nitrogen* 19 mg/dL (7-30); Carbon Dioxide* 34 mmol/L (20-32); Est. Creatinine Clearance* 42.59; Estimated Glomerular Filt Rate 61 ml/min; Glucose* 86 mg/dL (60-115)
[2023-05-21 07:45] LABS: Calcium* 8.6 mg/dL (8.4-10.6)
[2023-05-21] MEDS: POTASSIUM CHLORIDE 10 MEQ CAPSULE ER PO (08:24)
[2023-05-21] MEDS: LACTOBACILLUS ACIDOPHILUS 1 TABLET 2 TAB PO ×3 (08:25→17:53)
[2023-05-21] MEDS: FLUCONAZOLE 100 MG TABLET 200 MG PO (08:34)
[2023-05-21] MEDS: ACETAMINOPHEN 500 MG TABLET 1000 MG PO ×3 (08:35→23:04)
[2023-05-21] MEDS: FERROUS SULFATE 325 MG TABLET PO (08:35)
[2023-05-21] MEDS: NYSTATIN POWDER 1 APPLIC TOPICAL ×2 (08:35→23:16)
[2023-05-21] MEDS: FUROSEMIDE 20 MG TABLET PO (08:35)
[2023-05-21] MEDS: CITALOPRAM HYDROBROMIDE 20 MG TABLET PO (08:35)
[2023-05-21] MEDS: NYSTATIN CREAM 30 GM 1 APPLIC TOPICAL ×3 (08:35→23:16)
[2023-05-21] MEDS: CHOLESTYRAMINE POWDER 4 GM PO ×2 (08:35→23:09)
[2023-05-21] MEDS: HEPARIN 5,000 UNIT/0.5 ML INJ 5000 UNIT SUBCUT ×2 (08:36→23:11)
[2023-05-21] MEDS: SODIUM CHLORIDE 0.9 % (FLUSH) 10 ML SYRINGE 5 ML IVF ×2 (08:40→23:17)
[2023-05-21 08:48] VITALS: BP 142/76; PULSE 81; RESP 20; TEMP 36.3; O2SAT 92
[2023-05-21 11:05] VITALS: BP 111/64; PULSE 85; RESP 20; TEMP 36.3; O2SAT 92
--- NOTE | 2023-05-21 12:08 | P.IMPN_ITS ---
Progress Note: A&P Assessment and plan (1) Enterococcal bacteremia: Problem details: -source is her skin breakdown -follow-up blood cultures are negative to date -change ertapenem and vancomycin to IV daptomycin per ID consult -complete 7 days of IV antibiotics (1st day 05/15 at 0500; end afternoon 05/21) then switch to oral Linezolid for 7 days -remains COVID positive by antigen and PCR. This may delay TCU placement. -TTE negative for obvious vegetation Status: Acute (2) COVID-19: Problem details: -completed 5 day Paxlovid course on 05/17 at 9:00 p.m. -date of pos test - unclear home positive. given paxlovid on 05/10 from our ED - unclear if she took this between 05/10 and presentation on 05/14. -antigen pos 05/17 and PCR positive 05/17. we only had a reported home pos on or about 05/09 -05/10 -coughing, phelgm treated symptomatically Status: Acute (3) Stage IV pressure ulcer of sacral region: Problem details: - This is a chronic ulcer for which she has failed outpatient treatment -however she has not been compliant with therapies/outpatient appts - Dr. Gonzáles was consulted through ED in 04/05, planned for OR debridement and patient refused. Dr. Gonzáles reevaluated 05/18 - no surgery indicated. - previous outpatient wound care at and then [place] -pt did not follow-thru with appts and will need alternative care options at discharge (will need SNF initially) Status: Chronic (4) Cellulitis of gluteal region: Problem details: desquamation noted of both buttocks. 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 Status: Acute (10) Essential hypertension: Problem details: - continue furosemide for HTN and lymphedema/LE edema Status: Chronic (11) Panniculitis: Problem details: topical nystatin oral diflucan x 7 days (stop date in the EMR order) wound care Status: Acute (12) Chronic acquired lymphedema: Problem details: wrapped Status: Chronic (13) Morbid obesity: Status: Chronic (14) CKD (chronic kidney disease), stage III: Problem details: -stable creatinine Status: Chronic (15) Bilateral leg weakness: Status: Chronic Subjective Date Seen: 05/21/23 Interval history: Daily Progress Note - Hospital Medicine Day #: 8 CC: COVID URI, entercoccus bacteremia, multiple wounds, morbid obesity and debility and weakness OVERNIGHT UPDATES FROM STAFF & MED, LAB, IMAGING UPDATES about the same. asks similar questions, what's next and which care center. She blames previous docs for missing the infection. 142/76. Afebrile. Pulse 81. Respirations 20. 92% on room air. weight has not changed appreciably Updated labs this morning, hemoglobin stable at 9.0, electrolytes are normal. Hemoglobin increased to 8.9 s/p 1 unit of PRBCs on 05/17 New sets of blood cultures drawn on 05/17 are negative to date Urine culture is negative No MRSA Original blood cultures 1 is negative, 1 is growing Enterococcus Wound culture is growing E coli, Staph aureus and, E faecalis Echo 05/17/2023 Normal LV size, mild increased wall thickness. Hyperdynamic global systolic function with an EF greater than 75%. Normal right ventricular assessment. Incomplete assessment of all valves but there was no hemodynamically regurgitant lesions on this limited study. wound care consult: Gracia Louise is a 67 year old female admitted to hospital to Med/surg this morning 06/12/23. Covid positive. Currently needing Wound Care consult for multiple chronic wounds. Of note patient has presented to [facility] in [place]. Has since been discharged and transferred to [facility]. Unclear last appointment or current wound care orders. 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 In March 2023 was also seen here, at [facility] department. Consulted on by general surgery who recommended OR debridement that night. Patient declined treatment and was discharged home. Unclear how frequently patient has help in home, such as home care. States significant other assist with wounds at home. letter from [place] wound care: May 10, 2023 Based on repeated failed appointments, which are necessary for your medical care, the [facility] has concluded it will no longer be able to provide medical services to you, for a period of six (6) months. This is in accordance with the Failed Appointment Policy that was previously provided to you. ? The failed appointments occurred on the following dates: * February 09, 2023?policy provided to you * February 23, 2023 * March 04, 2023 * May 10, 2023 ? All further appointments previously scheduled with the [facility] have been cancelled. You will need to find a new provider and schedule an appointment to discuss ongoing wound care needs. The [facility] provider will make recommendations regarding wound care for current wounds, should that be requested. In addition, we will transfer medical records to your new provider once written permission has been received from you. Please contact your health plan at the specific number located on the back of your insurance card to verify coverage for wound clinic services prior to appointment. ? Once the six (6) month period has ended on November 08, 2023, you or a referring provider may contact the [facility] to re- establish care. We look forward to partnering with you to meet your health care needs at that time. Afebrile 170/97, 151/86 Pulse 70s to 80s Respiratory rate 20, 18 95-93% on room air Weight is stable at 122 kilos SARs antigen positive 05/17, SARs PCR positive 05/17 Negative C diff Objective: tired appearing, disshelved. Vitals: see above Lungs: Clear. Cardiac: S1S2. Skin exam: large confluent desquamation of both her buttocks and calfs. drainage minimal. panniculitis with yeast overgrowth suspected. Pictures are available under nursing notes, all comments. Disposition/Potential discharge - Likely to return to previous living situation. Today I spent 50minutes seeing the patient, reviewing Expanse and EPIC notes/diagnostics, discussing the care plan with our care time that includes social work, PT/OT, pharmacy, RT, snf and documenting my impressions and plan in the medical record. Exam Const: Vital Signs, click to edit/add: Vital Signs - 24 hr 05/20/23 15:00 05/20/23 15:00 05/20/23 19:00 Temperature 98.2 F 97.5 F L Pulse Rate [Right Pulse Oximeter] 82 82 89 Respiratory Rate 18 18 20 Blood Pressure [Ri ght Arm] 125/95 H 122/78 Blood Pressure [le ft forearm] Pulse Oximetry 96 96 Oxygen Delivery Me thod Room Air Room Air 05/20/23 23:00 05/20/23 23:59 05/21/23 03:15 Temperature 97.8 F 97.7 F Pulse Rate [Right Pulse Oximeter] 80 90 Respiratory Rate 20 20 20 Blood Pressure [Ri ght Arm] 136/65 148/83 H Blood Pressure [le ft forearm] Pulse Oximetry 93 93 Oxygen Delivery Me thod Room Air Room Air 05/21/23 08:48 Temperature 97.4 F L Pulse Rate [Right Pulse Oximeter] 81 Respiratory Rate 20 Blood Pressure [Ri ght Arm] Blood Pressure [le ft forearm] 142/76 H Pulse Oximetry 92 Oxygen Delivery Me thod Room Air Labs Labs: Laboratory Results - last 24 hr 05/21/23 06:57 WBC 5.16 RBC 3.59 L Hgb 9.0 L Hct 30.7 L MCV 86 MCH 25 L MCHC 29 L Plt Count 291 Sodium 136 Potassium 4.9 Chloride 101 Carbon Dioxide 34 H Anion Gap 1 L BUN 19 Creatinine 1.0 Estimated Creat Clear 42.59 Estimated GFR 61 Glucose 86 Calcium 8.6
[2023-05-21] MEDS: MORPHINE 4 MG/ML INJ IVP (13:02)
[2023-05-21] MEDS: DAPTOmycin 50 MG/ML inj 500 MG IVP (13:47)
[2023-05-21 15:50] VITALS: BP 128/74; PULSE 77; RESP 18; TEMP 36.2; O2SAT 94
--- NOTE | 2023-05-21 18:00 | PC.NURSE ---
Pt alert and oriented. VSS. Pt had pain ranging from 0-4 see EMAR for intervention. Pt up to chair once during shift. Pt assist of 2-3 with walker and gait belt. Wound care was completed early afternoon. Pt napped on and off throughout day. Pt had family visit mid afternoon. ?
[2023-05-21 22:53] VITALS: BP 136/66; PULSE 83; RESP 18; TEMP 36; O2SAT 95
[2023-05-22 02:10] VITALS: BP 129/98; PULSE 94; O2SAT 88
[2023-05-22 07:11] LABS: Hemoglobin* 8.5 gm/dL (12.0-16.0)
[2023-05-22 08:54] VITALS: BP 132/72; PULSE 76; RESP 20; TEMP 36.1; O2SAT 92
[2023-05-22] MEDS: FUROSEMIDE 20 MG TABLET PO (08:56)
[2023-05-22] MEDS: POTASSIUM CHLORIDE 10 MEQ CAPSULE ER PO (08:56)
[2023-05-22] MEDS: CITALOPRAM HYDROBROMIDE 20 MG TABLET PO (08:56)
[2023-05-22] MEDS: FERROUS SULFATE 325 MG TABLET PO (08:57)
[2023-05-22] MEDS: LACTOBACILLUS ACIDOPHILUS 1 TABLET 2 TAB PO ×3 (08:57→18:31)
[2023-05-22] MEDS: CHOLESTYRAMINE POWDER 4 GM PO ×2 (08:57→20:26)
[2023-05-22] MEDS: NYSTATIN CREAM 30 GM 1 APPLIC TOPICAL ×3 (08:58→20:25)
[2023-05-22] MEDS: HEPARIN 5,000 UNIT/0.5 ML INJ 5000 UNIT SUBCUT ×2 (08:58→20:26)
[2023-05-22] MEDS: NYSTATIN POWDER 1 APPLIC TOPICAL ×2 (08:58→20:25)
[2023-05-22] MEDS: ACETAMINOPHEN 500 MG TABLET 1000 MG PO ×3 (09:31→20:25)
[2023-05-22] MEDS: SODIUM CHLORIDE 0.9 % (FLUSH) 10 ML SYRINGE 5 ML IVF ×3 (09:31→20:27)
--- NOTE | 2023-05-22 09:52 | PC.NURSE ---
Patient cooperative with cares, however she did yell at times. Patient was easily redirected and pleasant afterwards. Patient remained in bed. Resistive to repositioning at times. Patient did have complaints of discomfort with turning and repositioning but otherwise denied pain. Catheter was bypassing urine and likely kinked. Tubing was readjusted and has been patent and draining clear yellow urine since that time.
[2023-05-22 14:58] VITALS: RESP 20; O2SAT 90
--- NOTE | 2023-05-22 14:59 | RESP.RT ---
Aerobika and IS done with patient, Good effort with both respiratory tools, non productive cough promoted.
[2023-05-22 15:18] VITALS: BP 131/68; PULSE 78; RESP 18; TEMP 35.9; O2SAT 95
[2023-05-22] MEDS: DAPTOmycin 50 MG/ML inj 500 MG IVP (15:24)
--- NOTE | 2023-05-22 19:01 | P.IMPN_ITS ---
Progress Note: A&P Assessment and plan (1) Enterococcal bacteremia: Problem details: -source is her skin breakdown -follow-up blood cultures are negative to date -change ertapenem and vancomycin to IV daptomycin per ID consult -completed 7 days of IV antibiotics (1st day 05/15 at 0500; end afternoon 05/21). This is post switched to linezolid today, however this is not compatible with her current outpatient medication regimen and so I will keep her on daptomycin for now. -remains COVID positive by antigen and PCR. This may delay TCU placement. -TTE negative for obvious vegetation Status: Acute (2) COVID-19: Problem details: -completed 5 day Paxlovid course on 05/17 at 9:00 p.m. -date of pos test - unclear home positive. given paxlovid on 05/10 from our ED - unclear if she took this between 05/10 and presentation on 05/14. -antigen pos 05/17 and PCR positive 05/17. we only had a reported home pos on or about 05/09 -05/10 -coughing, phelgm treated symptomatically Status: Acute (3) Stage IV pressure ulcer of sacral region: Problem details: - This is a chronic ulcer for which she has failed outpatient treatment -however she has not been compliant with therapies/outpatient appts - Dr. Gonzáles was consulted through ED in 04/05, planned for OR debridement and patient refused. Dr. Gonzáles reevaluated 05/18 - no surgery indicated. - previous outpatient wound care at and then [place] -pt did not follow-thru with appts and will need alternative care options at discharge (will need SNF initially) Status: Chronic (4) Cellulitis of gluteal region: Problem details: desquamation noted of both buttocks. 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 Status: Acute (10) Essential hypertension: Problem details: - continue furosemide for HTN and lymphedema/LE edema Status: Chronic (11) Panniculitis: Problem details: topical nystatin oral diflucan x 7 days (stop date in the EMR order) wound care Status: Acute (12) Chronic acquired lymphedema: Problem details: wrapped Status: Chronic (13) Morbid obesity: Status: Chronic (14) CKD (chronic kidney disease), stage III: Problem details: -creatinine stable Status: Chronic (15) Bilateral leg weakness: Problem details: PT and OT, SNF placement Status: Chronic Subjective Time Seen by Provider: 13:20 Date Seen: 05/22/23 Interval history: Gracia did not want to talk with me. She was resting. She agreed to let me examine her and denied complaints. Exam Narrative: Exam Narrative: General: No acute distress. Awake, alert, oriented. No pallor. No jaundice. Oropharynx: Clear. Mucous membranes moist. Cardiovascular: Regular rate and rhythm. No murmurs, gallops, or rubs. Respiratory: Clear to auscultation bilaterally. No wheezes or crackles. Const: Vital Signs, click to edit/add: Vital Signs - 24 hr 05/21/23 22:53 05/22/23 02:10 05/22/23 08:54 Temperature 96.8 F L 97.0 F L Pulse Rate [Right Pulse Oximeter] 83 94 76 Respiratory Rate 18 20 Blood Pressure [Ri ght Arm] 136/66 129/98 H Blood Pressure [le ft forearm] 132/72 Pulse Oximetry 95 88 92 Oxygen Delivery Me thod Room Air Room Air Room Air 05/22/23 14:58 05/22/23 15:18 Temperature 96.7 F L Pulse Rate [Right Pulse Oximeter] 78 Respiratory Rate 20 18 Blood Pressure [Ri ght Arm] Blood Pressure [le ft forearm] 131/68 Pulse Oximetry 90 95 Oxygen Delivery Me thod Room Air Room Air Labs Labs: Laboratory Results - last 24 hr 05/22/23 06:32 Hgb 8.5 L
[2023-05-22 20:36] VITALS: BP 142/73; PULSE 81; RESP 18; TEMP 36.6; O2SAT 94
[2023-05-22 23:00] VITALS: BP 130/55; PULSE 90; RESP 18; TEMP 36.2; O2SAT 94
--- NOTE | 2023-05-23 06:29 | PC.NURSE ---
Shift note: Pt has been in bed throughout the shift. Alert and oriented but complained of weakness. Pt refused turn and reposition. Gutierrez is patent with normal eleanor colored urine. Denied fever and pain.
[2023-05-23 09:30] VITALS: BP 142/97; PULSE 102; RESP 20; TEMP 36.6; O2SAT 97
[2023-05-23] MEDS: FERROUS SULFATE 325 MG TABLET PO (09:48)
[2023-05-23] MEDS: ACETAMINOPHEN 500 MG TABLET 1000 MG PO ×3 (09:49→22:31)
[2023-05-23] MEDS: FUROSEMIDE 20 MG TABLET PO (09:49)
[2023-05-23] MEDS: CITALOPRAM HYDROBROMIDE 20 MG TABLET PO (09:49)
[2023-05-23] MEDS: LACTOBACILLUS ACIDOPHILUS 1 TABLET 2 TAB PO ×2 (09:49→18:47)
[2023-05-23] MEDS: HEPARIN 5,000 UNIT/0.5 ML INJ 5000 UNIT SUBCUT ×2 (09:50→22:32)
[2023-05-23] MEDS: POTASSIUM CHLORIDE 10 MEQ CAPSULE ER PO (09:50)
[2023-05-23] MEDS: SODIUM CHLORIDE 0.9 % (FLUSH) 10 ML SYRINGE 5 ML IVF ×2 (09:52→22:34)
[2023-05-23 15:00] VITALS: BP 134/56; PULSE 85; RESP 20; TEMP 36.6; O2SAT 94
[2023-05-23] MEDS: ONDANSETRON ODT 4 MG TAB PO (16:52)
[2023-05-23] MEDS: NYSTATIN POWDER 1 APPLIC TOPICAL ×2 (16:54→22:33)
[2023-05-23] MEDS: DAPTOmycin 50 MG/ML inj 500 MG IVP (16:58)
--- NOTE | 2023-05-23 18:52 | PC.NURSE ---
Pt up in chair for morning. Initially not seated back far enough in seat and complained about tailbone discomfort. with assist of 2-3, walker, & gait belt, pt was able to sit father back in chair and was more comfortable. Therapy brought in cushion for chair after pt was back in bed and has not attempted to get into chair since then. Inventory Representative is unsure if this cushion will be to elevated for pt to properly get seated into chair due to body mass and height compared to chair. Dressing on buttock changed x2 due to stool. Leg wraps not changed due to pt complaint on not feeling well today and she couldn't bare the pain. Will have night staff re-approach leg dressings. Pt was teary due to feeling overwhelmed and missing boyfriend and family. Encouraged pt to talk with family over the phone as well as make a plan for cares before cares begin so she know what to expect. When a verbal plan was talked about with staff in the room and pt, pt was able to better cope with brief change and repositioning. Inventory Representative encouraged pt with every commercial break do 1 activity that therapy has asked of her, such as, arm lifts, left lift, butt squeezes, IS, and/or aerobika. Pt was open to doing this. Pt later thanked staff for helping her today.
--- NOTE | 2023-05-23 19:24 | PM.IMPN1 ---
Progress Note: A&P Assessment and plan (1) Enterococcal bacteremia: Problem details: -source is her skin breakdown -follow-up blood cultures are negative to date -changed ertapenem and vancomycin to IV daptomycin per ID consult -completed 7 days of IV antibiotics (1st day 05/15 at 0500; end afternoon 05/21). Linezolid not compatible with her current outpatient medication regimen, so she is remaining on daptomycin for 14 days total. This should be finished Wednesday. We may be able to come up with a different solution if a TCU is available prior to that or perhaps we can find a TCU where she can finish out IV antibiotics. -remains COVID positive by antigen and PCR. This may delay TCU placement. -TTE negative for obvious vegetation Status: Acute (2) COVID-19: Problem details: -completed 5 day Paxlovid course on 05/17 at 9:00 p.m. -date of pos test - unclear home positive. given paxlovid on 05/10 from our ED - unclear if she took this between 05/10 and presentation on 05/14. -antigen pos 05/17 and PCR positive 05/17. we only had a reported home pos on or about 05/09 -05/10 -resolving Status: Acute (3) Stage IV pressure ulcer of sacral region: Problem details: - This is a chronic ulcer for which she has failed outpatient treatment -however she has not been compliant with therapies/outpatient appts - Dr. Gonzáles was consulted through ED in 04/05, planned for OR debridement and patient refused. Dr. Gonzáles reevaluated 05/18 - no surgery indicated. - previous outpatient wound care at and then [place] -pt did not follow-thru with appts and will need alternative care options at discharge (will need SNF initially) Status: Chronic (4) Cellulitis of gluteal region: Problem details: desquamation noted of both buttocks. 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 Status: Acute (10) Essential hypertension: Problem details: - continue furosemide for HTN and lymphedema/LE edema Status: Chronic (11) Panniculitis: Problem details: topical nystatin oral diflucan x 7 days (stop date in the EMR order) wound care Status: Acute (12) Chronic acquired lymphedema: Problem details: wrapped Status: Chronic (13) Morbid obesity: Status: Chronic (14) CKD (chronic kidney disease), stage III: Problem details: -creatinine stable Status: Chronic (15) Bilateral leg weakness: Problem details: PT and OT, SNF placement Status: Chronic Subjective Time Seen by Provider: 17:00 Date Seen: 05/23/23 Interval history: Susie was getting a dressing change when I went to see her. She was tearful during the dressing change and was unable to help with any turning or cares. She had many questions about when she go home. Although she demonstrated understanding that she will need rehab especially since it is taking 3-4 people to turn her an order to do cares, she was also still hopeful that she could go home with home care. She is hoping to go either some place in [place] or to [place] for rehab as she has been there before and liked it. Exam Narrative: Exam Narrative: General: No acute distress. Awake, alert, oriented. No pallor. No jaundice. Oropharynx: Clear. Mucous membranes moist. Cardiovascular: Regular rate and rhythm. No murmurs, gallops, or rubs. Respiratory: Clear to auscultation bilaterally. No wheezes or crackles. Buttocks: Large bilateral pressure ulcers with mild erythema around the wounds but no induration or drainage. Dressings over coccyx pressure ulcer. Extremities: Massive lymphedema, gauze wraps bilaterally. Const: Vital Signs, click to edit/add: Vital Signs - 24 hr 05/22/23 20:36 05/22/23 23:00 05/22/23 23:00 Temperature 97.8 F 97.1 F L Pulse Rate [Right Pulse Oximeter] 81 90 90 Respiratory Rate 18 18 18 Blood Pressure [Ri ght Arm] Blood Pressure [le ft forearm] 142/73 H 130/55 L Pulse Oximetry 94 94 Oxygen Delivery Me thod Room Air Room Air 05/23/23 09:30 05/23/23 09:30 05/23/23 15:00 Temperature 97.8 F Pulse Rate [Right Pulse Oximeter] 102 H 102 H 85 Respiratory Rate 20 20 20 Blood Pressure [Ri ght Arm] Blood Pressure [le ft forearm] 142/97 H Pulse Oximetry 97 Oxygen Delivery Me thod Room Air 05/23/23 15:00 Temperature 97.8 F Pulse Rate [Right Pulse Oximeter] 85 Respiratory Rate 20 Blood Pressure [Ri ght Arm] 134/56 L Blood Pressure [le ft forearm] Pulse Oximetry 94 Oxygen Delivery Me thod Room Air
[2023-05-23] MEDS: NYSTATIN CREAM 30 GM 1 APPLIC TOPICAL (22:33)
[2023-05-23] MEDS: CHOLESTYRAMINE POWDER 4 GM PO (22:36)
[2023-05-23 23:00] VITALS: BP 140/57; PULSE 83; RESP 26; TEMP 36.5; O2SAT 97
--- NOTE | 2023-05-24 06:42 | PC.NURSE ---
End of shift [id number] ? Pt alert, oriented, and apprehensive, but cooperative to care during shift. Pt did not get up from bed during shift, but she did assist staff with limb movement, turning, holding excess skin out of the way during hygiene cares and medication application. VSS, afebrile, tolerating RA. Moisture was noted on absorbent padding under pt. It was determined that the urinary catheter was not effectively draining urine. Catheter bulb was deflated, catheter readvanced, and bulb re-inflated with 10cc fluid. Catheter tubing was observed to fill with urine upon readvancement. Pt reported pain as 10/10 and described feeling as ?burning? when re-positioning. RN provided emotional support and educated pt on breathing techniques to help with pain management position change and hygiene cares. Pain relief medications given per MAR with pt behavior indicating improvement. Pt observed to sleep during shift. ?
[2023-05-24 07:00] VITALS: BP 151/56; PULSE 77; RESP 20; TEMP 36.4; O2SAT 97
[2023-05-24] MEDS: CHOLESTYRAMINE POWDER 4 GM PO ×2 (09:45→20:45)
[2023-05-24] MEDS: ACETAMINOPHEN 500 MG TABLET 1000 MG PO ×3 (09:46→20:44)
[2023-05-24] MEDS: FUROSEMIDE 20 MG TABLET PO (09:46)
[2023-05-24] MEDS: POTASSIUM CHLORIDE 10 MEQ CAPSULE ER PO (09:47)
[2023-05-24] MEDS: LACTOBACILLUS ACIDOPHILUS 1 TABLET 2 TAB PO ×3 (09:47→17:41)
[2023-05-24] MEDS: CITALOPRAM HYDROBROMIDE 20 MG TABLET PO (09:47)
[2023-05-24] MEDS: FERROUS SULFATE 325 MG TABLET PO (09:47)
[2023-05-24] MEDS: HEPARIN 5,000 UNIT/0.5 ML INJ 5000 UNIT SUBCUT ×2 (09:48→20:45)
[2023-05-24] MEDS: SODIUM CHLORIDE 0.9 % (FLUSH) 10 ML SYRINGE 5 ML IVF ×2 (09:51→20:45)
[2023-05-24] MEDS: NYSTATIN POWDER 1 APPLIC TOPICAL ×2 (09:53→20:45)
[2023-05-24] MEDS: NYSTATIN CREAM 30 GM 1 APPLIC TOPICAL ×3 (09:54→20:45)
[2023-05-24 11:27] VITALS: BMI 47.2
[2023-05-24] MEDS: MORPHINE 4 MG/ML INJ IVP (14:15)
[2023-05-24] MEDS: DAPTOmycin 50 MG/ML inj 500 MG IVP (14:15)
[2023-05-24 15:00] VITALS: BP 128/91; PULSE 87; RESP 20; TEMP 36.1; O2SAT 94
--- NOTE | 2023-05-24 17:24 | PM.IMPN1 ---
Progress Note: A&P Assessment and plan (1) Enterococcal bacteremia: Problem details: -source is her skin breakdown -follow-up blood cultures are negative to date -changed ertapenem and vancomycin to IV daptomycin per ID consult -completed 7 days of IV antibiotics (1st day 05/15 at 0500; end afternoon 05/21). Linezolid not compatible with her current outpatient medication regimen, so she is remaining on daptomycin for 14 days total. This should be finished Wednesday. We may be able to come up with a different solution if a TCU is available prior to that or perhaps we can find a TCU where she can finish out IV antibiotics. -remains COVID positive by antigen and PCR. This may delay TCU placement. -TTE negative for obvious vegetation Status: Acute (2) COVID-19: Problem details: -completed 5 day Paxlovid course on 05/17 at 9:00 p.m. -date of pos test - unclear home positive. given paxlovid on 05/10 from our ED - unclear if she took this between 05/10 and presentation on 05/14. -antigen pos 05/17 and PCR positive 05/17. we only had a reported home pos on or about 05/09 -05/10 -resolving, should be out of quarantine Status: Acute (3) Stage IV pressure ulcer of sacral region: Problem details: - This is a chronic ulcer for which she has failed outpatient treatment -however she has not been compliant with therapies/outpatient appts - Dr. Gonzáles was consulted through ED in 04/05, planned for OR debridement and patient refused. Dr. Gonzáles reevaluated 05/18 - no surgery indicated. - previous outpatient wound care at and then [facility] did not follow-thru with appts and will need alternative care options at discharge (will need SNF initially) Status: Chronic (4) Cellulitis of gluteal region: Problem details: desquamation noted of both buttocks. 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 Status: Acute (10) Essential hypertension: Problem details: - continue furosemide for HTN and lymphedema/LE edema Status: Chronic (11) Panniculitis: Problem details: topical nystatin oral diflucan x 7 days (stop date in the EMR order) wound care Status: Acute (12) Chronic acquired lymphedema: Problem details: wrapped Status: Chronic (13) Morbid obesity: Status: Chronic (14) CKD (chronic kidney disease), stage III: Problem details: -creatinine stable Status: Chronic (15) Bilateral leg weakness: Problem details: PT and OT, SNF placement Status: Chronic Plan 67 y/o female with enterococcal bacteremia from cellulitis and stage IV pressure ulcer of sacral region and severe weakness secondary to COVID illness and chronic severe debility. She is on IV daptomycin to finish out a 2 week course of this, which should be done Wednesday. She is in precautions for COVID and will need longterm facility for rehab when she done with IV of daptomycin and out of COVID precautions. Subjective Time Seen by Provider: 13:26 Date Seen: 05/24/23 Interval history: Gracia and I spoke about SNF. She is hoping for a place in [place]. She c/o persistent pain in her wounds. Exam Narrative: Exam Narrative: General: No acute distress. Awake, alert, oriented. No pallor. No jaundice. Oropharynx: Clear. Mucous membranes moist. Cardiovascular: Regular rate and rhythm. No murmurs, gallops, or rubs. Respiratory: Clear to auscultation bilaterally. No wheezes or crackles. Extremities: Massive lymphedema, gauze wraps bilaterally. Const: Vital Signs, click to edit/add: Vital Signs - 24 hr 05/23/23 23:00 05/24/23 07:00 05/24/23 07:00 Temperature 97.7 F 97.6 F Pulse Rate [Right Pulse Oximeter] 83 77 77 Respiratory Rate 26 H 20 Blood Pressure [Ri ght Arm] 151/56 H Blood Pressure [le ft forearm] 140/57 H Pulse Oximetry 97 97 Oxygen Delivery Me thod Room Air Room Air 05/24/23 15:00 05/24/23 15:00 Temperature 97.0 F L Pulse Rate [Right Pulse Oximeter] 87 87 Respiratory Rate 20 20 Blood Pressure [Ri ght Arm] 128/91 H Blood Pressure [le ft forearm] Pulse Oximetry 94 Oxygen Delivery Me thod Room Air
--- NOTE | 2023-05-24 18:44 | PC.NURSE ---
End of shift: Patient alert and oriented, up to chair for lunch, returned to the bed for dressing change. Dressing change done to bilateral calves, buttocks and tailbone area. Patient pre-medicated prior to dressing change and tolerated well. Patient on regular diet, Gutierrez patent and draining. Patient had no BM this shift.
[2023-05-24 23:00] VITALS: BP 132/66; PULSE 85; PULSE 87; RESP 18; TEMP 36.4; O2SAT 92
[2023-05-25 06:21] LABS: Basophils Absolute Auto 0.05 K/uL (0.00-0.30); Eosinophils Absolute Auto 0.19 K/uL (0.00-0.50); Eosinophils Percent Auto 3.7 % (0.0-7.0); Hematocrit 31.1 % (33.0-51.0); Immature Granulocytes Abs Auto 0.07 K/uL (0.00-0.30); Immature Granulocytes Pct Auto 1.4 %; Lymphocytes Absolute Auto 1.56 K/uL (0.90-2.90); Lymphocytes Percent Auto 30.3 % (20-44); Mean Corpuscular HGB Conc 29 gm/dL (32-36); Mean Corpuscular Hemoglobin 25 pg (26-34); Mean Corpuscular Volume 88 fL (80-100); Monocytes Percent Auto 10.7 % (0.0-11.0); Neutrophils Absolute Auto 2.73 K/uL (1.7-7.0); Neutrophils Percent Auto 52.9 % (42.0-72.0); Platelet Count* 285 K/uL (140-440); RDW Coefficient of Variation % 19.5 % (11.5-15.5); Red Blood Count 3.54 m/uL (4.00-5.20); White Blood Count* 5.15 K/uL (4.50-11.00)
[2023-05-25 06:31] LABS: Slide Review Reflex No
[2023-05-25 06:55] LABS: Albumin* 3.3 g/dL (3.3-5.0); Chloride* 100 mmol/L (96-114)
[2023-05-25 06:56] LABS: Potassium* 4.9 mmol/L (3.6-5.1); Sodium* 136 mmol/L (135-149)
[2023-05-25 06:58] LABS: Alkaline Phosphatase* 118 U/L (40-150); Anion Gap 6 mEq/L (7-15); Aspartate Amino Transferase* 47 U/L (12-35); Bilirubin Total* 0.3 mg/dL (0.1-1.5); Blood Urea Nitrogen* 24 mg/dL (7-30); Carbon Dioxide* 30 mmol/L (20-32); Creatine Kinase* 144 U/L (41-117); Creatinine* 1.2 mg/dL (0.5-1.5); Est. Creatinine Clearance* 35.49; Estimated Glomerular Filt Rate 49 ml/min; Glucose* 113 mg/dL (60-115); Total Protein* 7.7 g/dL (6.0-8.3)
[2023-05-25 06:59] LABS: Alanine Aminotransferase* 22 U/L (4-35); Calcium* 8.8 mg/dL (8.4-10.6)
[2023-05-25 07:00] VITALS: BP 126/63; PULSE 86; RESP 18; TEMP 36.6; O2SAT 93
--- NOTE | 2023-05-25 07:36 | PC.NURSE ---
Pt is alert and oriented x3. Afebrile. Pt reports 4/10 pain buttocks/lower back, pain managed with scheduled medications. Pt was reposited x2 overnight, pt refused Q2H repo. Pt report ?I just want sleep, I am so tired. You all keep waking me up for this.? Education on bed sores worsening given, pt states ?It won?t happen, I like where I am at, I don?t want to move?.? Pt?s catheter is patent and draining. Pt denies chest pain, SOB, and N/V. Pt slept intermittently throughout night.?
[2023-05-25] MEDS: LACTOBACILLUS ACIDOPHILUS 1 TABLET 2 TAB PO ×3 (07:57→18:45)
[2023-05-25] MEDS: POTASSIUM CHLORIDE 10 MEQ CAPSULE ER PO (07:58)
[2023-05-25] MEDS: ACETAMINOPHEN 500 MG TABLET 1000 MG PO ×3 (07:58→20:16)
[2023-05-25] MEDS: FUROSEMIDE 20 MG TABLET PO (07:59)
[2023-05-25] MEDS: CITALOPRAM HYDROBROMIDE 20 MG TABLET PO (07:59)
[2023-05-25] MEDS: FERROUS SULFATE 325 MG TABLET PO (07:59)
[2023-05-25] MEDS: HEPARIN 5,000 UNIT/0.5 ML INJ 5000 UNIT SUBCUT ×2 (07:59→20:17)
[2023-05-25] MEDS: CHOLESTYRAMINE POWDER 4 GM PO ×2 (07:59→20:17)
[2023-05-25] MEDS: NYSTATIN CREAM 30 GM 1 APPLIC TOPICAL ×3 (08:00→20:20)
[2023-05-25] MEDS: SODIUM CHLORIDE 0.9 % (FLUSH) 10 ML SYRINGE 5 ML IVF ×2 (08:01→20:20)
[2023-05-25] MEDS: NYSTATIN POWDER 1 APPLIC TOPICAL ×2 (08:01→20:19)
[2023-05-25] MEDS: MORPHINE 4 MG/ML INJ IVP (10:03)
--- NOTE | 2023-05-25 10:43 | PM.IMPN1 ---
Progress Note: A&P Assessment and plan (1) Enterococcal bacteremia: Problem details: -source is her skin breakdown -follow-up blood cultures are negative to date -changed ertapenem and vancomycin to IV daptomycin per ID consult -completed 7 days of IV antibiotics (1st day 05/15 at 0500; end afternoon 05/21). Linezolid not compatible with her current outpatient medication regimen, so she is remaining on daptomycin for 14 days total. This should be finished Wednesday. We may be able to come up with a different solution if a TCU is available prior to that or perhaps we can find a TCU where she can finish out IV antibiotics. -remains COVID positive by antigen and PCR. This may delay TCU placement. -TTE negative for obvious vegetation Status: Acute (2) COVID-19: Problem details: -completed 5 day Paxlovid course on 05/17 at 9:00 p.m. -date of pos test - unclear home positive. given paxlovid on 05/10 from our ED - unclear if she took this between 05/10 and presentation on 05/14. -antigen pos 05/17 and PCR positive 05/17. we only had a reported home pos on or about 05/09 -05/10 -resolving, should be out of quarantine Status: Acute (3) Stage IV pressure ulcer of sacral region: Problem details: - This is a chronic ulcer for which she has failed outpatient treatment -however she has not been compliant with therapies/outpatient appts - Dr. Gonzáles was consulted through ED in 04/05, planned for OR debridement and patient refused. Dr. Gonzáles reevaluated 05/18 - no surgery indicated. - [facility] and will need alternative care options at discharge (will need SNF initially) Status: Chronic (4) Cellulitis of gluteal region: Problem details: desquamation noted of both buttocks. warm; draining minimally on IV daptomycin, oral diflucan (complete), topical nystatin bacteremic w/entercoccus Status: Acute (5) Iron deficiency 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: Problem details: -8.9 05/18 after 1 unit PRBCs - stable at 9 on 05/25 Status: Chronic (6) Diarrhea: Problem details: - C diff negative 05/14/2023 -added cholestyramine and Imodium for stool control -covarrubias in place -wound care ongoing - 05/25 Resolved. Having on average soft stool a day or every other day. Status: Resolved (7) Debility: Problem details: -chronic debility -BMI 50 -bacteremic and weak -requiring 3 staff for cares Status: Acute (8) Ulcers of both lower extremities with fat layer exposed: Problem details: -as above Status: Chronic (9) Chronic, continuous use of opioids: Problem details: - Per [facility] record: Reduced her MS Contin from 15 mg in the morning and 30 mg in the evening to 15 mg twice daily on 09/14/2022. Status: Acute (10) Essential hypertension: Problem details: - continue furosemide for HTN and lymphedema/LE edema Status: Chronic (11) Panniculitis: Problem details: topical nystatin oral diflucan x 7 days (stop date in the EMR order) wound care Status: Acute (12) Chronic acquired lymphedema: Problem details: wrapped Status: Chronic (13) Morbid obesity: Status: Chronic (14) CKD (chronic kidney disease), stage III: Problem details: -creatinine stable, recheck again in a week while on dapto. Status: Chronic (15) Bilateral leg weakness: Problem details: PT and OT, SNF placement Status: Chronic (16) Insomnia: Problem details: - 05/25 Encouraged turning TV off well before bedtime, developing a bedtime routine conducive to sleep and using already prescribed melatonin. Status: Chronic Plan 67 y/o female with enterococcal bacteremia from cellulitis and stage IV pressure ulcer of sacral region and severe weakness secondary to COVID illness and chronic severe debility. She is on IV daptomycin to finish out a 2 week course of this, which should be done Wednesday. She is in precautions for COVID and will need [facility] when she done with IV of daptomycin and out of COVID precautions. No safe discharge plan at present due to ongoing need for COVID precautions (thru ) and IV dapto (last dose Wed). VTE prophylaxis with heparin subcut. Subjective Time Seen by Provider: 08:24 Date Seen: 05/25/23 Interval history: Gracia c/o poor sleep. She has a sleep aid available, but has not been using it. She watches TV late into the night. We discussed how the light from a TV can disrupt sleep cycles. We also discussed developing a bedtime routine and using a sleep aid. Exam Narrative: Exam Narrative: General: No acute distress. Awake, alert, oriented. No pallor. No jaundice. Oropharynx: Clear. Mucous membranes moist. Cardiovascular: Regular rate and rhythm. No murmurs, gallops, or rubs. Respiratory: Clear to auscultation bilaterally. No wheezes or crackles. Extremities: Massive lymphedema, unchanged, gauze wraps bilaterally. Const: Vital Signs, click to edit/add: Vital Signs - 24 hr 05/24/23 15:00 05/24/23 15:00 05/24/23 23:00 Temperature 97.0 F L Pulse Rate [Right Pulse Oximeter] 87 87 87 Respiratory Rate 20 20 18 Blood Pressure [Ri ght Arm] 128/91 H Blood Pressure [ri ght forearm] Pulse Oximetry 94 Oxygen Delivery Me thod Room Air 05/24/23 23:00 05/25/23 07:00 05/25/23 07:00 Temperature 97.6 F 98 F Pulse Rate [Right Pulse Oximeter] 85 86 86 Respiratory Rate 18 18 Blood Pressure [Ri ght Arm] 132/66 Blood Pressure [ri ght forearm] 126/63 Pulse Oximetry 92 93 Oxygen Delivery Me thod Room Air Room Air Labs Labs: Laboratory Results - last 24 hr 05/25/23 05:40 WBC 5.15 RBC 3.54 L Hgb 9.0 L Hct 31.1 L MCV 88 MCH 25 L MCHC 29 L RDW Coeff of Vilma 19.5 H Plt Count 285 Neut % (Auto) 52.9 Lymph % (Auto) 30.3 Story % (Auto) 10.7 Eos % (Auto) 3.7 Baso % (Auto) 1.0 Neut # (Auto) 2.73 Lymph # (Auto) 1.56 Story # (Auto) 0.60 Eos # (Auto) 0.19 Baso # (Auto) 0.05 Abs Immat Gran (auto) 0.07 Imm/Tot Granulo (auto) 1.4 Sodium 136 Potassium 4.9 Chloride 100 Carbon Dioxide 30 Anion Gap 6 L BUN 24 Creatinine 1.2 Estimated Creat Clear 35.49 Estimated GFR 49 Glucose 113 Calcium 8.8 Total Bilirubin 0.3 AST 47 H ALT 22 Alkaline Phosphatase 118 Total Creatine Kinase 144 H Total Protein 7.7 Albumin 3.3
[2023-05-25] MEDS: DAPTOmycin 50 MG/ML inj 500 MG IVP (12:58)
[2023-05-25 15:00] VITALS: RESP 18
--- NOTE | 2023-05-25 15:27 | PC.SOCIAL ---
Discharge planning: suction worker called pt over the phone to discuss discharge planning. suction worker explained that PT/OT are recommending she go to a SNF for a short-term rehabilitation stay. Pt stated that she wanted to go to an Assisted Living Facility. suction worker explained that going to an Assisted Living Facility would be a permanent move whereas PT/OT with a short-term rehabilitation stay will allow her to return to her apartment. Pt said she understood the difference. suction worker provided pt with information about the local long term, as pt would like to stay in [place], and explained that [facility] is the option for [place]. suction worker offered to send out a referral to [facility] on behalf of the pt, but pt wanted to talk with her children and boyfriend first and asked this social media community manager to call back tomorrow to check-in with her. Social work to follow-up as needed.
--- NOTE | 2023-05-25 19:21 | PC.NURSE ---
Nursing Care Hours: [id number] Pt this shift alert and oriented. Calm and cooperative but needing increased motivation and encouragement to complete goals. Pt anxious and tearful, therapeutic communication effective at calming pt. Dressing changed on buttocks, pt tolerated decently. Staff helped by distracting pt with conversation. Bilat leg dressings changed d/t becoming soiled from drainage. Lotion applied to dry peeling skin LE. Also applied to back for itching. Up to chair for about 3-4 hours. Pt c/o tailbone hurting while in chair. Discussed getting up for meals and returning to bed so pt is in chair for shorter periods, but has to get up twice a day. Pt agreeable. Pt requiring encouragement to drink more fluids d/t low u/o.
[2023-05-25] MEDS: MELATONIN 3 MG TABLET PO (20:18)
--- NOTE | 2023-05-25 22:14 | PC.NURSE ---
VSS, RA. Pain of 4 in tailbone, some relief w/ scheduled tylenol & oxy. Refusing repositioning. Tolerating regular diet, encouraged fluids. Gutierrez draining clear, light yellow urine- 125 cc out over last 4 hours. Last BM 05/23. Skin under breasts and folds cleaned, dried, nystatin applied. PIV in left chest, SL'd. Educated on the importance of repositioning, continues to refuse despite education. Pt repeatedly says she is so tired. Will continue to monitor, follow POC, and keep pt and family updated. Ginger Eli RN
[2023-05-25 23:00] VITALS: BP 134/63; PULSE 78; RESP 16; TEMP 36.2; O2SAT 93
--- NOTE | 2023-05-26 06:16 | PC.NURSE ---
Pt A&O and VSS overnight. Afebrile & O2 maintained > 90% on RA. Pt denied having any pain ?as long as we don?t move her?. No PRN?s required overnight. Pt refused repositioning and insisted on remaining on her left side where she was comfortable. Nurse provided education on pressure sores and importance of repositioning, even if it?s simply removing a pillow from underneath pt. She continued to refuse and ?just wanted to sleep?. Right breast PIV C/D/I and flushes well. BLE gauze wraps C/D/I no reinforcement needed. Breast, abdominal & groin folds cleansed with foaming cleanser. Gutierrez patent & draining, total U/O 200cc. ?
[2023-05-26 09:00] VITALS: BP 129/71; PULSE 76; RESP 20; TEMP 36.2; O2SAT 94
[2023-05-26] MEDS: LACTOBACILLUS ACIDOPHILUS 1 TABLET 2 TAB PO ×3 (09:36→17:46)
[2023-05-26] MEDS: HEPARIN 5,000 UNIT/0.5 ML INJ 5000 UNIT SUBCUT ×2 (09:37→20:41)
[2023-05-26] MEDS: CITALOPRAM HYDROBROMIDE 20 MG TABLET PO (09:37)
[2023-05-26] MEDS: ACETAMINOPHEN 500 MG TABLET 1000 MG PO ×3 (09:37→20:40)
[2023-05-26] MEDS: FERROUS SULFATE 325 MG TABLET PO (09:37)
[2023-05-26] MEDS: SODIUM CHLORIDE 0.9 % (FLUSH) 10 ML SYRINGE 5 ML IVF ×2 (09:38→20:42)
[2023-05-26] MEDS: FUROSEMIDE 20 MG TABLET PO (09:38)
[2023-05-26] MEDS: CHOLESTYRAMINE POWDER 4 GM PO ×2 (09:39→20:41)
--- NOTE | 2023-05-26 12:57 | PM.IMPN1 ---
Progress Note: A&P Assessment and plan (1) Enterococcal bacteremia: Problem details: -source is her skin breakdown -follow-up blood cultures are negative to date -changed ertapenem and vancomycin to IV daptomycin per ID consult -completed 7 days of IV antibiotics (1st day 05/15 at 0500; end afternoon 05/21). Linezolid not compatible with her current outpatient medication regimen, so she is remaining on daptomycin for 14 days total. This should be finished Monday 05/28. We may be able to come up with a different solution if a TCU is available prior to that or perhaps we can find a TCU where she can finish out IV antibiotics. -remains COVID positive by antigen and PCR, quarantine ending 05/27 -TTE negative for obvious vegetation Status: Acute (2) COVID-19: Problem details: -completed 5 day Paxlovid course on 05/17 at 9:00 p.m. -date of pos test - unclear home positive. given paxlovid on 05/10 from our ED - unclear if she took this between 05/10 and presentation on 05/14. -antigen pos 05/17 and PCR positive 05/17. we only had a reported home pos on or about 05/09 -05/10 -resolving, should be out of quarantine 05/27. medical staff services coordinator aware for placement needs. Status: Acute (3) Stage IV pressure ulcer of sacral region: Problem details: - This is a chronic ulcer for which she has failed outpatient treatment -however she has not been compliant with therapies/outpatient appts - Dr. Gonzáles was consulted through ED in 04/05, planned for OR debridement and patient refused. Dr. Gonzáles reevaluated 05/18 - no surgery indicated. - previous outpatient wound care at and then [place] -pt did not follow-thru with appts and will need alternative care options at discharge (will need SNF initially) - patient in agreement (after discussing appropriate settings - Long-Term center vs Assisted living vs SNF/NH Status: Chronic (4) Cellulitis of gluteal region: Problem details: desquamation noted of both buttocks. warm; draining minimally bacteremic w/entercoccus on IV daptomycin, oral diflucan (complete), topical nystatin Status: Acute (5) Iron deficiency 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: Problem details: -8.9 05/18 after 1 unit PRBCs -stable at 9 on 05/25 Status: Chronic (6) Diarrhea: Problem details: -C diff negative 05/14/2023 -added cholestyramine and Imodium for stool control -covarrubias in place -wound care ongoing -05/25 Resolved. Having on average soft stool a day or every other day. Status: Resolved (7) Debility: Problem details: -chronic debility -BMI 50 -bacteremic and weak -requiring 3 staff for cares. 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 Status: Acute (10) Essential hypertension: Problem details: - continue furosemide for HTN and lymphedema/LE edema Status: Chronic (11) Panniculitis: Problem details: topical nystatin oral diflucan x 7 days (stop date in the EMR order) wound cares Status: Acute (12) Chronic acquired lymphedema: Problem details: wrapped Status: Chronic (13) Morbid obesity: Problem details: -chronic Status: Chronic (14) CKD (chronic kidney disease), stage III: Problem details: -creatinine stable (1-1.2), recheck again in a week while on dapto. Status: Chronic (15) Bilateral leg weakness: Problem details: PT and OT, medical staff services coordinator assisting with SNF placement Status: Chronic (16) Insomnia: Problem details: - 05/25 Encouraged turning TV off well before bedtime, developing a bedtime routine conducive to sleep and using already prescribed melatonin. Status: Chronic Plan 05/26: Awaiting completion of Covid quarantine, 05/27, for SNF placement for ongoing wound cares/needs. Time Spent With Patient Total time spent: Total time spent caring for the patient today was 45 minutes. This includes time spent for the visit reviewing the chart, time spent during the visit, time spent after the visit and documentation and planning in coordination of care. Subjective Date Seen: 05/26/23 Interval history: Patient begins with complaint that nursing and therapy staff came into her room this morning after she awoke and expected her to get out of bed without letting her pain medication take effect. She goes on to say that she should be given time to wake up and take her pills, allow them to work, before being asked to get out of bed. She further complains that she is expected to sit in the chair for all of her meals but that the chair is uncomfortable. The bed is also uncomfortable but she is used to sleeping in her chair. Otherwise, denies headache. Tolerating orals without nausea or vomiting. Pain, currently, managed. Exam Narrative: Exam Narrative: PHYSICAL EXAM General: Mildly anxious, otherwise NAD HEENT: Normocephalic, atraumatic, sclera white, EOMI, oral mucosa moist Cardiovascular: RRR, S1S2. Edematous without pitting edema Pulmonary: CTA bilaterally without rhonchi, rales, expiratory wheezes. No dyspnea under our Abdominal: Soft, obese, nondistended, NTTP Neurological: Alert, answering questions appropriately, cranial nerves intact, no focal findings Extremities: No gross joint deformity or swelling. AROMI. Neurovascularly intact Skin: Warm, dry. Dressings in place, dried serosanguineous drainage noted. Const: Vital Signs, click to edit/add: Vital Signs - 24 hr 05/25/23 15:00 05/25/23 23:00 05/25/23 23:00 Temperature 97.1 F L Pulse Rate [Right Pulse Oximeter] 78 78 Respiratory Rate 18 16 16 Blood Pressure [ri ght forearm] 134/63 Pulse Oximetry 93 Oxygen Delivery Me thod Room Air 05/26/23 09:00 Temperature 97.1 F L Pulse Rate [Right Pulse Oximeter] 76 Respiratory Rate 20 Blood Pressure [ri ght forearm] 129/71 Pulse Oximetry 94 Oxygen Delivery Me thod Room Air
[2023-05-26] MEDS: DAPTOmycin 50 MG/ML inj 500 MG IVP (13:41)
--- NOTE | 2023-05-26 14:56 | PC.SOCIAL ---
Discharge planning: court worker spoke to pt today via phone and pt agreed to let social services director fax referral packets for short-term rehab to [facility] in [place] and [facility] in [place]. Pt would like to stay in [place] as much as possible. Social work to follow-up as needed.
[2023-05-26 15:00] VITALS: BP 133/68; PULSE 80; PULSE 87; RESP 18; TEMP 36.7; O2SAT 97
--- NOTE | 2023-05-26 15:28 | PC.NURSE ---
End of shift [id number] - Pt alert, oriented, resistive to care but cooperative with RN support. Pt up to chair with PT, walker, gait belt and 2 assist. Incontinent of bowel, urinary catheter remains in place. Pt verbalized feelings of anxiety and fear related to performing tasks for PT/OT, changing position, wound care. Medical staff provided support and explanations for equipment use and wound care procedure to help with anxious feelings. Pt verbalized improvement and cooperated with care and movement. Pt tolerated wound care poorly related to previously mentioned feelings of anxiety. Pt denies SOB, is afebrile, VSS. Tolerating RA, regular diet and fluids. Appears to be resting comfortably at end of shift.
[2023-05-26] MEDS: MELATONIN 3 MG TABLET PO (20:41)
[2023-05-26] MEDS: NYSTATIN POWDER 1 APPLIC TOPICAL (20:41)
[2023-05-26] MEDS: NYSTATIN CREAM 30 GM 1 APPLIC TOPICAL (20:41)
[2023-05-26 23:00] VITALS: BP 133/68; PULSE 83; RESP 18; TEMP 36.4; O2SAT 92
--- NOTE | 2023-05-26 23:20 | PC.NURSE ---
End of Shift: Patient pleasant and cooperative. Afebrile. Denies pain at rest. Turn and reposition q2h, patient declines at times, education provided. Tolerating regular diet with no nausea. Matt patent.
--- NOTE | 2023-05-27 05:05 | PC.NURSE ---
End of shift [id number]: Pt A&O and VSS overnight. Afebrile & O2 maintained > 90% on RA. Pt denied having any pain, no PRN?s required overnight. Pt refused repositioning and insisted on remaining on her left side where she was comfortable. Nurse provided education on pressure sores and importance of repositioning, even if it?s simply removing a pillow from underneath pt. She continued to refuse. Right breast PIV C/D/I and flushes well. BLE gauze wraps C/D/I no reinforcement needed. Gutierrez patent & draining, total U/O 275cc. Pt should be discontinued from quarantine today, 05/27 as it will be 10 days since positive PCR test.?
[2023-05-27 07:01] LABS: Hematocrit 30.6 % (33.0-51.0); Hemoglobin* 8.7 gm/dL (12.0-16.0); Mean Corpuscular HGB Conc 28 gm/dL (32-36); Mean Corpuscular Hemoglobin 25 pg (26-34); Mean Corpuscular Volume 90 fL (80-100); Platelet Count* 256 K/uL (140-440); Red Blood Count 3.42 m/uL (4.00-5.20); White Blood Count* 4.86 K/uL (4.50-11.00)
[2023-05-27 07:05] LABS: Slide Review Reflex No
[2023-05-27 07:13] LABS: Chloride* 105 mmol/L (96-114); Potassium* 4.7 mmol/L (3.6-5.1); Sodium* 139 mmol/L (135-149)
[2023-05-27 07:16] LABS: Anion Gap 2 mEq/L (7-15); Blood Urea Nitrogen* 23 mg/dL (7-30); Carbon Dioxide* 32 mmol/L (20-32); Creatinine* 1.2 mg/dL (0.5-1.5); Est. Creatinine Clearance* 35.49; Estimated Glomerular Filt Rate 49 ml/min; Glucose* 92 mg/dL (60-115)
[2023-05-27 07:17] LABS: Calcium* 8.6 mg/dL (8.4-10.6)
[2023-05-27] MEDS: CITALOPRAM HYDROBROMIDE 20 MG TABLET PO ×2 (08:30→08:45)
[2023-05-27] MEDS: LACTOBACILLUS ACIDOPHILUS 1 TABLET 2 TAB PO ×3 (08:31→18:24)
[2023-05-27] MEDS: CHOLESTYRAMINE POWDER 4 GM PO ×2 (08:34→21:49)
[2023-05-27] MEDS: ACETAMINOPHEN 500 MG TABLET 1000 MG PO ×3 (08:34→21:51)
[2023-05-27 08:40] VITALS: BP 153/75; PULSE 79; RESP 20; TEMP 36.2; O2SAT 96
[2023-05-27] MEDS: FERROUS SULFATE 325 MG TABLET PO (08:44)
[2023-05-27] MEDS: FUROSEMIDE 20 MG TABLET PO (08:44)
[2023-05-27] MEDS: HEPARIN 5,000 UNIT/0.5 ML INJ 5000 UNIT SUBCUT ×2 (08:45→21:51)
[2023-05-27] MEDS: OXYCODONE 5 MG TABLET PO (08:46)
[2023-05-27] MEDS: NYSTATIN POWDER 1 APPLIC TOPICAL ×2 (08:47→21:52)
[2023-05-27] MEDS: NYSTATIN CREAM 30 GM 1 APPLIC TOPICAL ×2 (08:47→21:52)
[2023-05-27 09:00] VITALS: RESP 20; O2SAT 96
[2023-05-27] MEDS: SODIUM CHLORIDE 0.9 % (FLUSH) 10 ML SYRINGE 5 ML IVF ×2 (09:28→21:48)
--- NOTE | 2023-05-27 09:49 | PC.SOCIAL ---
Discharge planning: [facility] has declined pt for placement. [facility] in [place] is still reviewing the referral. Social work to follow-up as needed.
[2023-05-27] MEDS: ONDANSETRON ODT 4 MG TAB PO (11:14)
[2023-05-27 11:16] VITALS: BP 124/64; PULSE 77; RESP 20; TEMP 36.2; O2SAT 96
[2023-05-27] MEDS: DAPTOmycin 50 MG/ML inj 500 MG IVP (12:54)
--- NOTE | 2023-05-27 14:50 | PC.NURSE ---
Please see eMar for meds given and charting for multiple wound assessments. Precautions persist for + Covid. Pt refused to get out of bed this morning. Tolerates repositioning poorly, comfort glide utilized. Bariatric bedpan placed in bathroom, pt had a moderate hard formed BM. Report will be provided to oncoming shift RN. Pt just got up in the recliner with Leonardo from PT. Plan OT evaluation to follow.
--- NOTE | 2023-05-27 15:09 | P.IMPN_ITS ---
Progress Note: A&P Assessment and plan (1) Enterococcal bacteremia: Problem details: -source is her skin breakdown -follow-up blood cultures are negative to date -changed ertapenem and vancomycin to IV daptomycin per ID consult -completed 7 days of IV antibiotics (1st day 05/15 at 0500; end afternoon 05/21). Linezolid not compatible with her current outpatient medication regimen, so she is remaining on daptomycin for 14 days total. This should be finished Monday 05/28. We may be able to come up with a different solution if a TCU is available prior to that or perhaps we can find a TCU where she can finish out IV antibiotics. -remains COVID positive by antigen and PCR, quarantine ending 05/28 -TTE negative for obvious vegetation Status: Acute (2) COVID-19: Problem details: -completed 5 day Paxlovid course on 05/17 at 9:00 p.m. -date of pos test - unclear home positive. given paxlovid on 05/10 from our ED - unclear if she took this between 05/10 and presentation on 05/14. -antigen pos 05/17 and PCR positive 05/17. we only had a reported home pos on or about 05/09 -05/10 -resolving, should be out of quarantine 05/28. director of anesthesia services aware for placement needs. Status: Acute (3) Stage IV pressure ulcer of sacral region: Problem details: - This is a chronic ulcer for which she has failed outpatient treatment -however she has not been compliant with therapies/outpatient appts - Dr. Gonzáles was consulted through ED in 04/05, planned for OR debridement and patient refused. Dr. Gonzáles reevaluated 05/18 - no surgery indicated. - previous outpatient wound care at and then [place] -pt did not follow-thru with appts and will need alternative care options at discharge (will need SNF initially) - patient in agreement (after discussing appropriate settings - [facility] Term center vs Assisted living vs SNF/NH Status: Chronic (4) Cellulitis of gluteal region: Problem details: desquamation noted of both buttocks. warm; draining minimally bacteremic w/entercoccus on IV daptomycin, oral diflucan (complete), topical nystatin Status: Acute (5) Iron deficiency 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: Problem details: -8.9 05/18 after 1 unit PRBCs -8.7, within baseline 8.5-9.0 Status: Chronic (6) Diarrhea: Problem details: -C diff negative 05/14/2023 -added cholestyramine and Imodium for stool control -covarrubias in place -wound care ongoing -05/25 Resolved. Having on average soft stool a day or every other day. Status: Resolved (7) Debility: Problem details: -chronic debility -BMI 50 -bacteremic and weak -requiring 3 staff for cares. 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 Status: Acute (10) Essential hypertension: Problem details: - continue furosemide for HTN and lymphedema/LE edema Status: Chronic (11) Panniculitis: Problem details: topical nystatin oral diflucan x 7 days (stop date in the EMR order) wound cares Status: Acute (12) Chronic acquired lymphedema: Problem details: wrapped Status: Chronic (13) Morbid obesity: Problem details: -chronic Status: Chronic (14) CKD (chronic kidney disease), stage III: Problem details: -creatinine stable (1-1.2), recheck again in a week while on dapto. Status: Chronic (15) Bilateral leg weakness: Problem details: PT and OT, director of anesthesia services assisting with SNF placement Status: Chronic (16) Insomnia: Problem details: - 05/25 Encouraged turning TV off well before bedtime, developing a bedtime routine conducive to sleep and using already prescribed melatonin. Status: Chronic Time Spent With Patient Total time spent: Total time spent caring for the patient today was 45 minutes. This includes time spent for the visit reviewing the chart, time spent during the visit, time spent after the visit and documentation and planning in coordination of care. Subjective Date Seen: 05/27/23 Interval history: This morning, patient complained of not sleeping well overnight. Is not comfortable in the bed or the chair as she is used to sleeping in her own chair. Continues to tolerate orals without nausea vomiting. Remains afebrile, vitals stable. COVID quarantine expires tomorrow. Waiting placement. [facility]. Exam Narrative: Exam Narrative: PHYSICAL EXAM General: Mildly anxious, otherwise NAD Cardiovascular: RRR, S1S2. Edematous without pitting edema Pulmonary: CTA bilaterally without rhonchi, rales, expiratory wheezes. No dyspnea under our Neurological: Alert, answering questions appropriately, cranial nerves intact, no focal findings Extremities: No gross joint deformity or swelling. AROMI. Neurovascularly intact Skin: Warm, dry. Dressings in place, dried serosanguineous drainage noted. Const: Vital Signs, click to edit/add: Vital Signs - 24 hr 05/26/23 23:00 05/26/23 23:00 05/27/23 08:40 Temperature 97.6 F 97.1 F L Pulse Rate [Left A pical] 79 Pulse Rate [Right Pulse Oximeter] 83 83 79 Respiratory Rate 18 18 20 Blood Pressure [ri ght forearm] 133/68 153/75 H Pulse Oximetry 92 96 Oxygen Delivery Me thod Room Air Room Air 05/27/23 09:00 05/27/23 11:16 Temperature 97.1 F L Pulse Rate [Left A pical] Pulse Rate [Right Pulse Oximeter] 77 Respiratory Rate 20 20 Blood Pressure [ri ght forearm] 124/64 Pulse Oximetry 96 96 Oxygen Delivery Me thod Room Air Room Air Labs Labs: Laboratory Results - last 24 hr 05/27/23 06:40 WBC 4.86 RBC 3.42 L Hgb 8.7 L Hct 30.6 L MCV 90 MCH 25 L MCHC 28 L Plt Count 256 Sodium 139 Potassium 4.7 Chloride 105 Carbon Dioxide 32 Anion Gap 2 L BUN 23 Creatinine 1.2 Estimated Creat Clear 35.49 Estimated GFR 49 Glucose 92 Calcium 8.6
[2023-05-27 16:40] VITALS: BP 159/92; PULSE 87; RESP 22; TEMP 36.4; O2SAT 94
[2023-05-27] MEDS: MELATONIN 3 MG TABLET PO (21:51)
--- NOTE | 2023-05-27 23:51 | PC.NURSE ---
[id number]: Patient up to chair and BSCx1. No BM. C/o R. heel pain. Off-loaded heel off mattress and felt better. Patient mostly cooperative but requires encouragement to participate in cares.
[2023-05-28 01:00] VITALS: BP 137/77; PULSE 81; RESP 20; RESP 22; TEMP 36.5; O2SAT 91
[2023-05-28 03:15] VITALS: BP 139/76; PULSE 81; RESP 20; TEMP 36.4; O2SAT 93
[2023-05-28 07:00] VITALS: BP 146/69; PULSE 82; RESP 24; TEMP 36.4; O2SAT 93
[2023-05-28] MEDS: CHOLESTYRAMINE POWDER 4 GM PO ×2 (09:19→20:30)
[2023-05-28] MEDS: ACETAMINOPHEN 500 MG TABLET 1000 MG PO ×2 (09:19→20:29)
[2023-05-28] MEDS: FERROUS SULFATE 325 MG TABLET PO (09:21)
[2023-05-28] MEDS: NYSTATIN CREAM 30 GM 1 APPLIC TOPICAL ×3 (09:21→20:30)
[2023-05-28] MEDS: NYSTATIN POWDER 1 APPLIC TOPICAL ×2 (09:21→20:31)
[2023-05-28] MEDS: FUROSEMIDE 20 MG TABLET PO (09:21)
[2023-05-28] MEDS: HEPARIN 5,000 UNIT/0.5 ML INJ 5000 UNIT SUBCUT ×2 (09:21→20:29)
[2023-05-28] MEDS: SODIUM CHLORIDE 0.9 % (FLUSH) 10 ML SYRINGE 5 ML IVF ×2 (09:22→20:31)
[2023-05-28] MEDS: LACTOBACILLUS ACIDOPHILUS 1 TABLET 2 TAB PO ×2 (09:38→12:38)
--- NOTE | 2023-05-28 10:23 | P.IMPN_ITS ---
Progress Note: A&P Assessment and plan (1) Enterococcal bacteremia: Problem details: -source is her skin breakdown -blood cultures no growth -changed ertapenem and vancomycin to IV daptomycin per ID consult -completed 7 days of IV antibiotics (1st day 05/15 at 0500; end afternoon 05/21). Linezolid not compatible with her current outpatient medication regimen, so she is remaining on daptomycin for 14 days total. This should be finished Monday 05/28 -COVID positive by antigen and PCR, quarantine 05/18 - 05/27 (COMPLETED) -TTE negative for obvious vegetation 05/28: DAPTOMYCIN COMPLETED Status: Acute (2) COVID-19: Problem details: -completed 5 day Paxlovid course on 05/17 at 9:00 p.m. -date of pos test - unclear home positive. given paxlovid on 05/10 from our ED - unclear if she took this between 05/10 and presentation on 05/14. -antigen pos 05/17 and PCR positive 05/17. we only had a reported home pos on or about 05/09 -05/10 -resolving, should be out of quarantine 05/28. director learning services aware for placement needs. (QUARANTINE COMPLETED) Status: Acute (3) Stage IV pressure ulcer of sacral region: Problem details: - This is a chronic ulcer for which she has failed outpatient treatment -however she has not been compliant with therapies/outpatient appts - Dr. Gonzáles was consulted through ED in 04/05, planned for OR debridement and patient refused. Dr. Gonzáles reevaluated 05/18 - no surgery indicated. - previous outpatient wound care at and then [place] -pt did not follow-thru with appts and will need alternative care options at discharge (will need SNF initially) - patient in agreement (after discussing appropriate settings - Group Home center vs Assisted living vs SNF/NH) 05/28: [facility] UNABLE TO ACCOMMODATE. [facility] [place] PENDING ASSESSMENT Status: Chronic (4) Cellulitis of gluteal region: Problem details: desquamation noted of both buttocks. 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 Status: Acute (10) Essential hypertension: Problem details: - continue furosemide for HTN and lymphedema/LE edema Status: Chronic (11) CKD (chronic kidney disease), stage III: Problem details: -creatinine stable, baseline 0.8-1.2. Daptomycin completed CHECKING LABS NEEDED Status: Chronic (12) Panniculitis: Problem details: topical nystatin oral diflucan x 7 days (COMPLETED) wound cares Status: Acute (13) Morbid obesity: Problem details: -chronic, complicating above Status: Chronic (14) Insomnia: Problem details: - Encouraged turning TV off well before bedtime, developing a bedtime routine conducive to sleep and using already prescribed melatonin. Status: Chronic (15) Diarrhea: Problem details: -C diff negative 05/14/2023 -added cholestyramine and Imodium for stool control -covarrubias in place -wound care ongoing -05/25 RESOLVED. Having on average soft stool a day or every other day. Status: Resolved Plan 05/28: Patient is medically stable for discharge/transfer to appropriate facility. director learning services assisting with SNF placement Time Spent With Patient Total time spent: Total time spent caring for the patient today was 45 minutes. This includes time spent for the visit reviewing the chart, time spent during the visit, time spent after the visit and documentation and planning in coordination of care. Subjective Date Seen: 05/28/23 Interval history: Patient reports this morning she actually had a decent night sleep. She is up in the chair this morning and is complaining of pain in her sacrum and how comfortable chair is. She has had her pain pill and is waiting for to take effect. Remains afebrile. Tolerating orals without nausea vomiting. No new complaints this morning outside of her usual. Reported to do well this morning moving from bed to chair. Continues to need more assistance with wound cares but will reassess this morning. Exam Narrative: Exam Narrative: PHYSICAL EXAM General: Sitting up in chair this morning, pleasant, NAD Cardiovascular: RRR, S1S2. Edematous without pitting edema Pulmonary: CTA bilaterally without rhonchi, rales, expiratory wheezes. No dyspnea on room air Neurological: Alert, answering questions appropriately, cranial nerves intact, no focal findings Extremities: Lymphedema. No gross joint deformity or swelling. AROMI. Neurovascularly intact Skin: Warm, dry. Dressings in place, dried serosanguineous drainage noted. Const: Vital Signs, click to edit/add: Vital Signs - 24 hr 05/27/23 11:16 05/27/23 16:40 05/28/23 01:00 Temperature 97.1 F L 97.5 F L Pulse Rate [Right Pulse Oximeter] 77 87 81 Respiratory Rate 20 22 22 Blood Pressure [le ft forearm] 159/92 H Blood Pressure [ri ght forearm] 124/64 Pulse Oximetry 96 94 Oxygen Delivery Me thod Room Air Room Air 05/28/23 01:00 05/28/23 03:15 05/28/23 07:00 Temperature 97.7 F 97.6 F 97.6 F Pulse Rate [Right Pulse Oximeter] 81 81 82 Respiratory Rate 20 20 24 Blood Pressure [le ft forearm] Blood Pressure [ri ght forearm] 137/77 139/76 146/69 H Pulse Oximetry 91 93 93 Oxygen Delivery Me thod Room Air Room Air Room Air
[2023-05-28] MEDS: DAPTOmycin 50 MG/ML inj 500 MG IVP (12:41)
--- NOTE | 2023-05-28 14:55 | PC.SOCIAL ---
Addendum entered by FRANSISCO Curiel 05/28/23 16:40: Discharge planning: Pt's nurse today called [facility] for a nurse to nurse conversation in regard to pt's wound care. [facility] stated they may be able to accept pt next Wednesday, but had to review the wound care with their team again. [facility] was supposed to get back to this vp digital marketing social media and crm by the end of the day with the final decision on accepting pt to their facility or not. assembly line worker did not hear back and tried calling, but had to leave a message. assembly line worker then sent a referral to the following facilities as well: 1. [facility] #[phone] 2. [facility] #[phone] 3. [facility] #[phone] 4. [facility] #[phone] 5. [facility] #[phone] Social work to follow-up as needed. Original Note: Discharge planning: assembly line worker informed pt that [facility] cannot take her. Pt was upset as she would really like to be in [place]. Informed pt that [facility] was still reviewing her referral/paperwork. Social work to follow-up as needed.
[2023-05-28] MEDS: OXYCODONE 5 MG TABLET PO (14:57)
--- NOTE | 2023-05-28 18:43 | PC.NURSE ---
End of Shift: The patient is alert and orientated. Although gets very anxious during any type of movement/ transfers. Ax1-2 SBA w/ RW. VS on RA. No longer on COVID precautions. Reported moderate pain throughout the day 5-10... PRN oxy gven. Wound care was completed to BLE and her sacrum. The patient tolerated this well. The patient moved rooms this afternoon.. in 281. Gutierrez is patent and draining well. PO intake is ok. Calls appropriately. Spoke to Monalisa hinton [facility] regarding questions about wounds... They have not gotten back to social work yet. Call light within reach. MATA LOPEZ BSN
[2023-05-28] MEDS: MELATONIN 3 MG TABLET PO (20:29)
[2023-05-28 20:30] VITALS: TEMP 36.2
--- NOTE | 2023-05-28 22:30 | PC.NURSE ---
Shift [id number]- Patient needs lot of encouragement for movement and repositioning- I'm in a good spot I feel like I'm fine, I don't need to I just want to go to bed now. She does allow boosting in bed after conversation. She complains of feeling warm- requests temperature taken- see charting for value. Cold wet wash cloth and ice pack provided for comfort.
[2023-05-29 01:00] VITALS: BP 137/65; PULSE 82; PULSE 83; RESP 20; TEMP 36.4; O2SAT 93
[2023-05-29 07:26] VITALS: BP 131/69; PULSE 77; RESP 22; TEMP 36.2; O2SAT 84; O2SAT 94
[2023-05-29] MEDS: LACTOBACILLUS ACIDOPHILUS 1 TABLET 2 TAB PO ×3 (07:35→18:39)
[2023-05-29] MEDS: CHOLESTYRAMINE POWDER 4 GM PO ×2 (09:17→20:42)
[2023-05-29] MEDS: FERROUS SULFATE 325 MG TABLET PO (09:18)
[2023-05-29] MEDS: HEPARIN 5,000 UNIT/0.5 ML INJ 5000 UNIT SUBCUT ×2 (09:18→20:41)
[2023-05-29] MEDS: ACETAMINOPHEN 500 MG TABLET 1000 MG PO ×3 (09:18→20:40)
[2023-05-29] MEDS: CITALOPRAM HYDROBROMIDE 20 MG TABLET PO (09:18)
[2023-05-29] MEDS: FUROSEMIDE 20 MG TABLET PO (09:18)
[2023-05-29] MEDS: NYSTATIN POWDER 1 APPLIC TOPICAL ×2 (09:19→20:42)
[2023-05-29] MEDS: SODIUM CHLORIDE 0.9 % (FLUSH) 10 ML SYRINGE 5 ML IVF ×2 (09:19→20:42)
[2023-05-29] MEDS: polyethylene glycoL 3350 17 GM PACK PO (09:19)
[2023-05-29] MEDS: NYSTATIN CREAM 30 GM 1 APPLIC TOPICAL ×3 (09:19→20:42)
--- NOTE | 2023-05-29 14:49 | P.IMPN_ITS ---
Progress Note: A&P Assessment and plan (1) Enterococcal bacteremia: Problem details: -source is her skin breakdown -blood cultures no growth -changed ertapenem and vancomycin to IV daptomycin per ID consult -completed 7 days of IV antibiotics (1st day 05/15 at 0500; end afternoon 05/21). Linezolid not compatible with her current outpatient medication regimen, so she is remaining on daptomycin for 14 days total. This should be finished Monday 05/28 -COVID positive by antigen and PCR, quarantine 05/18 - 05/27 (COMPLETED) -TTE negative for obvious vegetation 05/28: DAPTOMYCIN COMPLETED Status: Acute (2) COVID-19: Problem details: -completed 5 day Paxlovid course on 05/17 at 9:00 p.m. -date of pos test - unclear home positive. given paxlovid on 05/10 from our ED - unclear if she took this between 05/10 and presentation on 05/14. -antigen pos 05/17 and PCR positive 05/17. we only had a reported home pos on or about 05/09 -05/10 -resolving, should be out of quarantine 05/28. nutrition services associate aware for placement needs. (QUARANTINE COMPLETED) Status: Acute (3) Stage IV pressure ulcer of sacral region: Problem details: - This is a chronic ulcer for which she has failed outpatient treatment -however she has not been compliant with therapies/outpatient appts - Dr. Gonzáles was consulted through ED in 04/05, planned for OR debridement and patient refused. Dr. Gonzáles reevaluated 05/18 - no surgery indicated. - previous outpatient wound care at and then [place] -pt did not follow-thru with appts and will need alternative care options at discharge (will need SNF initially) - patient in agreement (after discussing appropriate settings - [facility] vs Assisted living vs SNF/NH) 05/28: [facility] UNABLE TO ACCOMMODATE. [facility] [place] PENDING ASSESSMENT Status: Chronic (4) Cellulitis of gluteal region: Problem details: desquamation noted of both buttocks. 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 -patient requested Ativan, would avoid benzos. Encourage breathing techniques, calming environment, essential oils Status: Acute (10) Essential hypertension: Problem details: - continue furosemide for HTN and lymphedema/LE edema Status: Chronic (11) CKD (chronic kidney disease), stage III: Problem details: -creatinine stable, baseline 0.8-1.2. Daptomycin completed CHECKING LABS NEEDED Status: Chronic (12) Panniculitis: Problem details: topical nystatin oral diflucan x 7 days (COMPLETED) wound cares Status: Acute (13) Morbid obesity: Problem details: -chronic, complicating above Status: Chronic (14) Insomnia: Problem details: - Encouraged turning TV off well before bedtime, developing a bedtime routine conducive to sleep and using already prescribed melatonin. Status: Chronic (15) Diarrhea: Problem details: -C diff negative 05/14/2023 -added cholestyramine and Imodium for stool control -covarrubias in place -wound care ongoing -05/25 RESOLVED. Having on average soft stool a day or every other day. Status: Resolved Plan 05/29: Patient is medically stable for discharge/transfer to appropriate facility. nutrition services associate assisting with SNF placement Time Spent With Patient Total time spent: Total time spent caring for the patient today was 45 minutes. This includes time spent for the visit reviewing the chart, time spent during the visit, time spent after the visit and documentation and planning in coordination of care. Subjective Date Seen: 05/29/23 Interval history: Patient is seen later in the morning and in a much more positive frame of mind. She tells me she is not a morning person. She reports another good night sleep. Pain is better this morning after taking her pills. Tolerating orals without nausea vomiting. Awaiting placement for further management wounds Exam Narrative: Exam Narrative: PHYSICAL EXAM General: Lying in bed, very pleasant, conversant, NAD Cardiovascular: RRR, S1S2. Edematous without pitting edema Pulmonary: CTA bilaterally without rhonchi, rales, expiratory wheezes. No dyspnea on room air Neurological: Alert, answering questions appropriately, cranial nerves intact, no focal findings Extremities: Lymphedema. No gross joint deformity or swelling. AROMI. Neurovascularly intact Skin: Warm, dry. Dressings in place, dry. Const: Vital Signs, click to edit/add: Vital Signs - 24 hr 05/28/23 20:30 05/29/23 01:00 05/29/23 01:00 Temperature 97.1 F L 97.5 F L Pulse Rate [Left A pical] 83 Pulse Rate [Right Pulse Oximeter] 83 82 Respiratory Rate 20 20 Blood Pressure [ri ght forearm] 137/65 Pulse Oximetry 93 Oxygen Delivery Me thod Room Air 05/29/23 07:26 05/29/23 07:26 05/29/23 07:26 Temperature 97.1 F L Pulse Rate [Left A pical] Pulse Rate [Right Pulse Oximeter] 77 77 Respiratory Rate 22 22 Blood Pressure [ri ght forearm] 131/69 Pulse Oximetry 84 L 94 Oxygen Delivery Me thod Room Air Room Air
[2023-05-29 15:00] VITALS: BP 108/54; PULSE 88; RESP 24; TEMP 36.4; O2SAT 95
--- NOTE | 2023-05-29 18:53 | PC.NURSE ---
End of Shift: Patient pleasant and cooperative, but very whiney, and moans with all movements. Patient is vitally stable, lungs clear, BS WNL, IV SL and intact. Patient SBA/walker. With getting to the chair x2 today and getting back in bed patient would moan and get emotional. Patient could not tolerating sitting in the chair the second time due to bottom pain. Patient rates pain everywhere at most 7/10, scheduled pain meds given. Patient covarrubias intact and draining. Patient had 1 hard BM on commode, prn Miralax given. Patient tolerating regular diet. Buttocks wound cleansed and changed. Lower extremity kerlix was replaced with new kerlix.
[2023-05-29 22:15] VITALS: BP 125/53; PULSE 76; RESP 22; TEMP 36.4; O2SAT 96
--- NOTE | 2023-05-30 06:22 | PC.NURSE ---
Pt alert and oriented x3. Afebrile. Pt reports 5/10 pain in legs and bottom, managed with scheduled medications.?Pt was offered help and asked x3 overnight to turn and reposition pt refused x3 ?I am comfortable I don?t want to move.? RN expressed concerns for bed sores, education given on benefits of turn and repositioning, pt refused stating ?It?s fine let me sleep. I just want to sleep?. Encouraged to move on her own pt states ?I do?, pt was noted be in same position each check-in throughout night.?Pt?s satish is patent and draining. Pt slept throughout most of night.??
[2023-05-30 07:00] VITALS: BP 133/74; PULSE 82; RESP 22; TEMP 36.1; O2SAT 95
[2023-05-30] MEDS: LACTOBACILLUS ACIDOPHILUS 1 TABLET 2 TAB PO ×3 (09:17→17:34)
[2023-05-30] MEDS: CITALOPRAM HYDROBROMIDE 20 MG TABLET PO (09:18)
[2023-05-30] MEDS: FERROUS SULFATE 325 MG TABLET PO (09:21)
[2023-05-30] MEDS: ACETAMINOPHEN 500 MG TABLET 1000 MG PO ×3 (09:21→21:06)
[2023-05-30] MEDS: CHOLESTYRAMINE POWDER 4 GM PO ×2 (09:24→21:08)
[2023-05-30] MEDS: FUROSEMIDE 20 MG TABLET PO (09:30)
[2023-05-30] MEDS: HEPARIN 5,000 UNIT/0.5 ML INJ 5000 UNIT SUBCUT ×2 (11:06→21:07)
[2023-05-30] MEDS: SODIUM CHLORIDE 0.9 % (FLUSH) 10 ML SYRINGE 5 ML IVF ×2 (11:14→21:13)
[2023-05-30] MEDS: NYSTATIN CREAM 30 GM 1 APPLIC TOPICAL ×3 (11:22→21:12)
[2023-05-30] MEDS: NYSTATIN POWDER 1 APPLIC TOPICAL ×2 (11:22→21:08)
[2023-05-30 15:00] VITALS: BP 125/61; PULSE 76; RESP 19; TEMP 36.4; O2SAT 96
--- NOTE | 2023-05-30 15:59 | P.IMPN_ITS ---
Progress Note: A&P Assessment and plan (1) Enterococcal bacteremia: Problem details: -source is her skin breakdown -blood cultures no growth -changed ertapenem and vancomycin to IV daptomycin per ID consult -completed 7 days of IV antibiotics (1st day 05/15 at 0500; end afternoon 05/21). Linezolid not compatible with her current outpatient medication regimen, so she is remaining on daptomycin for 14 days total. This should be finished Monday 05/28 -COVID positive by antigen and PCR, quarantine 05/18 - 05/27 (COMPLETED) -TTE negative for obvious vegetation 05/28: DAPTOMYCIN COMPLETED Status: Acute (2) COVID-19: Problem details: -completed 5 day Paxlovid course on 05/17 at 9:00 p.m. -date of pos test - unclear home positive. given paxlovid on 05/10 from our ED - unclear if she took this between 05/10 and presentation on 05/14. -antigen pos 05/17 and PCR positive 05/17. we only had a reported home pos on or about 05/09 -05/10 -resolving, should be out of quarantine 05/28. office services clerk aware for placement needs. (QUARANTINE COMPLETED) Status: Acute (3) Stage IV pressure ulcer of sacral region: Problem details: - This is a chronic ulcer for which she has failed outpatient treatment -however she has not been compliant with therapies/outpatient appts - Dr. Gonzáles was consulted through ED in 04/05, planned for OR debridement and patient refused. Dr. Gonzláes reevaluated 05/18 - no surgery indicated. - previous outpatient wound care at and then [place] -pt did not follow-thru with appts and will need alternative care options at discharge (will need SNF initially) - patient in agreement (after discussing appropriate settings - Custodial center vs Assisted living vs SNF/NH) 05/28: THREE LINKS UNABLE TO ACCOMMODATE. THE [facility] IN [place] PENDING ASSESSMENT - stressed the importance of offloading her wounds. With her words she says that she likes the lay on her side but in actuality she lays on her back most of the day and night. Status: Chronic (4) Cellulitis of gluteal region: Problem details: desquamation noted of both buttocks. 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 1 assist for ambulation/transfers, IMPROVING 05/28: BARREL HANDLER CONTINUES TO WORK ON FINDING PLACEMENT, CURRENTLY THE [facility] IN [place] ASSESSING 05/29: PATIENT WILLING TO LOOK INTO CARE CENTERS IN [facility] (WHERE HER SON LIVES)[facility] Status: Acute (9) Chronic, continuous use of opioids: Problem details: - Per [facility] record: Reduced her MS Contin from 15 mg in the morning and 30 mg in the evening to 15 mg twice daily on 09/14/2022. -patient requested Ativan, would avoid benzos. Encourage breathing techniques, calming environment, essential oils Status: Acute (10) Essential hypertension: Problem details: - continue furosemide for HTN and lymphedema/LE edema Status: Chronic (11) CKD (chronic kidney disease), stage III: Problem details: -creatinine stable, baseline 0.8-1.2. Daptomycin completed CHECKING LABS NEEDED Status: Chronic (12) Panniculitis: Problem details: topical nystatin oral diflucan x 7 days (COMPLETED) wound cares Status: Acute (13) Morbid obesity: Problem details: -chronic, complicating above Status: Chronic (14) Insomnia: Problem details: - Encouraged turning TV off well before bedtime, developing a bedtime routine conducive to sleep and using already prescribed melatonin. Status: Chronic (15) Diarrhea: Problem details: -C diff negative 05/14/2023 -added cholestyramine and Imodium for stool control -covarrubias in place -wound care ongoing -05/25 RESOLVED. Having on average soft stool a day or every other day. Status: Resolved Plan 1. Will attempt to discuss with wound care tomorrow to see if we can establish a less uncomfortable dressing change regimen, such as possibly applying lidocaine to the wound bed for about 10 minutes before repacking the wounds. Patient agreeable. Time Spent With Patient Total time spent: 30 minutes Subjective Date Seen: 05/30/23 Interval history: Hospital day 17. In general patient is trying to cooperate more with staff. Staff is learning how to be more patient with the patient as they try to work with her and support her. Patient still struggles with anxiety about numerous things including the idea of adjusting her own positions independently, moving when others are trying to help her reposition, the thought of doing her do dressing changes. Exam Narrative: Exam Narrative: Examined patient in her hospital room. When she is laying still in her back she appears comfortable no acute distress. When trying to work with her and reposition her so we can offload her and try to examine her wounds and re-dress her wounds she struggles with her sense of anxiety. Ultimately if we work slowly with her encourage her to moves slowly she is able to carry out these activities. Wounds appear clean today. Lungs are clear. Heart tones with regular rhythm. Abdomen is obese with active bowel sounds. Const: Vital Signs, click to edit/add: Vital Signs - 24 hr 05/29/23 22:15 05/30/23 07:00 Temperature 97.6 F 97.0 F L Pulse Rate [Right Pulse Oximeter] 76 82 Respiratory Rate 22 22 Blood Pressure [ri ght forearm] 125/53 L 133/74 Pulse Oximetry 96 95 Oxygen Delivery Me thod Room Air Room Air Documenting provider has reviewed patient's vital signs: yes
[2023-05-30 19:50] VITALS: BP 121/76; PULSE 76; PULSE 99; RESP 20; TEMP 36.5; O2SAT 98
--- NOTE | 2023-05-30 19:57 | PC.NURSE ---
Patient pleasant, alert and oriented. Tolerated regular diet. Transferred and ambulated to commode and recliner with walker, gait belt and stand by assist. At times reported pain in multiple areas with movement and repositioning. Was given scheduled Morphine and Tylenol. VSS.
[2023-05-30] MEDS: MELATONIN 3 MG TABLET PO (21:07)
--- NOTE | 2023-05-31 08:07 | PC.NURSE ---
Pt alert and oriented x3. Afebrile. Pt reports 5/10 pain in legs and bottom, managed with scheduled medications. RN encouraged and talked to pt about turning and repositioning over night to prevent new or worsening bed sores, pt refused Q2H turn and repositioning but agreed to Q4H. Pt's buttock and leg dressings are CDI.?Pt?s covarrubias is patent and draining. Pt slept throughout most of night.??
[2023-05-31 08:55] VITALS: BP 140/50; PULSE 92; RESP 20; TEMP 36.1; O2SAT 95
[2023-05-31] MEDS: CHOLESTYRAMINE POWDER 4 GM PO ×2 (09:00→21:22)
[2023-05-31] MEDS: LACTOBACILLUS ACIDOPHILUS 1 TABLET 2 TAB PO ×3 (09:02→18:11)
[2023-05-31] MEDS: ACETAMINOPHEN 500 MG TABLET 1000 MG PO ×3 (09:03→21:22)
[2023-05-31] MEDS: CITALOPRAM HYDROBROMIDE 20 MG TABLET PO (09:04)
[2023-05-31] MEDS: FUROSEMIDE 20 MG TABLET PO (09:05)
[2023-05-31] MEDS: FERROUS SULFATE 325 MG TABLET PO (09:05)
[2023-05-31] MEDS: SODIUM CHLORIDE 0.9 % (FLUSH) 10 ML SYRINGE 5 ML IVF (09:06)
[2023-05-31] MEDS: HEPARIN 5,000 UNIT/0.5 ML INJ 5000 UNIT SUBCUT ×2 (09:15→21:22)
[2023-05-31] MEDS: ONDANSETRON ODT 4 MG TAB PO (09:24)
[2023-05-31] MEDS: NYSTATIN POWDER 1 APPLIC TOPICAL ×2 (10:00→21:24)
[2023-05-31] MEDS: NYSTATIN CREAM 30 GM 1 APPLIC TOPICAL ×3 (10:00→21:23)
--- NOTE | 2023-05-31 11:13 | PC.SOCIAL ---
Addendum entered by DIANE Peacock 05/31/23 12:41: Received call from [facility] stating they are unable to accept pt as they can not meet her wound care needs. Original Note: Discharge planning: Left multiple voice messages and emails with payroll coordinator, Alejandro at [facility], requesting update on whether pt has been accepted for admit to this facility. bench worker apprentice to follow up as needed.
--- NOTE | 2023-05-31 12:41 | PC.SOCIAL ---
Discharge planning: Received a call from [facility] stating they can review pt information and requested it be faxed to them at [phone]. Received call from Henrietta at [facility] stating they could accept pt to a private room when available. Received a call from [facility] stating they are enable to accept pt as they can not meet her needs. dairy husbandry worker to follow up as needed.
--- NOTE | 2023-05-31 13:36 | P.IMPN_ITS ---
Progress Note: A&P Assessment and plan (1) Enterococcal bacteremia: Problem details: -source is her skin breakdown -blood cultures no growth -changed ertapenem and vancomycin to IV daptomycin per ID consult -completed 7 days of IV antibiotics (1st day 05/15 at 0500; end afternoon 05/21). Linezolid not compatible with her current outpatient medication regimen, so she is remaining on daptomycin for 14 days total. This should be finished Monday 05/28 -COVID positive by antigen and PCR, quarantine 05/18 - 05/27 (COMPLETED) -TTE negative for obvious vegetation 05/28: DAPTOMYCIN COMPLETED Status: Acute (2) COVID-19: Problem details: -completed 5 day Paxlovid course on 05/17 at 9:00 p.m. -date of pos test - unclear home positive. given paxlovid on 05/10 from our ED - unclear if she took this between 05/10 and presentation on 05/14. -antigen pos 05/17 and PCR positive 05/17. we only had a reported home pos on or about 05/09 -05/10 -resolving, should be out of quarantine 05/28. family services assistant aware for placement needs. (QUARANTINE COMPLETED) Status: Acute (3) Stage IV pressure ulcer of sacral region: Problem details: - This is a chronic ulcer for which she has failed outpatient treatment -however she has not been compliant with therapies/outpatient appts - Dr. Gonzáles was consulted through ED in 04/05, planned for OR debridement and patient refused. Dr. Gonzáles reevaluated 05/18 - no surgery indicated. - previous outpatient wound care at and then [place] -pt did not follow-thru with appts and will need alternative care options at discharge (will need SNF initially) - patient in agreement (after discussing appropriate settings - Long-Term center vs Assisted living vs SNF/NH) 05/28: [facility] UNABLE TO ACCOMMODATE. THE [facility] IN [place] PENDING ASSESSMENT - stressed the importance of offloading her wounds. With her words she says that she likes the lay on her side but in actuality she lays on her back most of the day and night. Status: Chronic (4) Cellulitis of gluteal region: Problem details: desquamation noted of both buttocks. warm; draining minimally bacteremic w/entercoccus IV daptomycin (COMPLETED 05/28), oral diflucan (COMPLETED) -continue topical nystatin Status: Acute (5) Ulcers of both lower extremities with fat layer exposed: Problem details: -as above Status: Chronic (6) Chronic acquired lymphedema: Problem details: -complicating above, bilateral lower extremity wraps Status: Chronic (7) Iron deficiency 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: Problem details: -8.9 05/18 after 1 unit PRBCs -8.7, within baseline 8.5-9.0 -STABLE, FOLLOWING LABS NEEDED Status: Chronic (8) Debility: Problem details: -chronic debility -BMI 50 -bacteremic and weak -bilateral lower extremity weakness -requiring 2-3 staff for cares. 1 assist for ambulation/transfers, IMPROVING 05/28: PRIMARY CARE NURSE CONTINUES TO WORK ON FINDING PLACEMENT, CURRENTLY [facility] IN [place] ASSESSING 05/29: PATIENT WILLING TO LOOK INTO CARE CENTERS IN [facility] (WHERE HER SON LIVES)[facility] Status: Acute (9) Chronic, continuous use of opioids: Problem details: - Per [facility] record: Reduced her MS Contin from 15 mg in the morning and 30 mg in the evening to 15 mg twice daily on 09/14/2022. -patient requested Ativan, would avoid benzos. Encourage breathing techniques, calming environment, essential oils Status: Acute (10) Essential hypertension: Problem details: - continue furosemide for HTN and lymphedema/LE edema Status: Chronic (11) CKD (chronic kidney disease), stage III: Problem details: -creatinine stable, baseline 0.8-1.2. Daptomycin completed CHECKING LABS NEEDED Status: Chronic (12) Panniculitis: Problem details: topical nystatin oral diflucan x 7 days (COMPLETED) wound cares Status: Acute (13) Morbid obesity: Problem details: -chronic, complicating above -interestingly, she estimated her admission weight was 100 kg. When we weighed her her weight was 124 kg. Weight has been gradually declining since then. On 05/31/2023 weight is down to 111.7 kg. Status: Chronic (14) Insomnia: Problem details: - Encouraged turning TV off well before bedtime, developing a bedtime routine conducive to sleep and using already prescribed melatonin. Status: Chronic (15) Diarrhea: Problem details: -C diff negative 05/14/2023 -added cholestyramine and Imodium for stool control -covarrubias in place -wound care ongoing -05/25 RESOLVED. Having on average soft stool a day or every other day. Status: Resolved Plan 1. Reviewed impression with patient 2. Continue with discharge disposition planning as much as possible. Time Spent With Patient Total time spent: 30 minutes Subjective Date Seen: 05/31/23 Interval history: Hospital day 18. She states that inexplicably she feels weaker today than she did yesterday. She would like to continue to work with occupational therapy and physical therapy of possible. Denies myalgias, arthralgias, sore throat, URI symptoms, cough, shortness of breath, chest heaviness, pressure, tightness, or pain. Denies syncope or near- syncope. Patient continues to struggle with anxiety about numerous things including the idea of adjusting her own positions while in bed independently, moving when others are trying to help her reposition, the thought of doing her dressing changes due to the pain associated with this effort. Exam Narrative: Exam Narrative: Examined patient in her own hospital room. Remarkably she is actually laying on her side today. Appears comfortable and in no acute distress. Lungs are clear to auscultation. Heart tones with regular rhythm. Abdomen is obese. And on examine her wounds today. Const: Vital Signs, click to edit/add: Vital Signs - 24 hr 05/30/23 15:00 05/30/23 19:50 05/30/23 19:50 Temperature 97.6 F 97.7 F Pulse Rate [Right Pulse Oximeter] 76 76 99 Respiratory Rate 19 20 20 Blood Pressure [ri ght forearm] 125/61 121/76 Pulse Oximetry 96 98 Oxygen Delivery Me thod Room Air Room Air 05/31/23 08:55 Temperature 97.0 F L Pulse Rate [Right Pulse Oximeter] 92 Respiratory Rate 20 Blood Pressure [ri ght forearm] 140/50 H Pulse Oximetry 95 Oxygen Delivery Me thod Room Air Documenting provider has reviewed patient's vital signs: yes
[2023-05-31 15:00] VITALS: BP 134/65; PULSE 82; RESP 18; TEMP 36.5; O2SAT 94
--- NOTE | 2023-05-31 15:15 | NUTR.NU ---
RDN attempted x3 to follow-up with patient, however patient was not available on all attempts. RDN will attempt to follow-up at later date.
--- NOTE | 2023-05-31 16:36 | PC.SOCIAL ---
Discharge planning- Received a phone call from Nataliia in admissions at [facility] at [phone]. Nataliia informs that pt was accepted for admission for 06/01. [place] will need orders in advance of pt going to facility. Discussed with pt and she was resistant to going to SNF. Pt requests that this worker contact Kisha Nicolas in [place]. Contacted Babs in admissions at [facility] and secure e-mailed packet for consideration. Received an e-mail from Babs at [facility] informing that she is unable to meet pt's needs. Phone call to pt to provide update. Informed pt that [facility] is the closest SNF that [facility] has located. Pt questioned if she could go home with home care. Discussed with therapy and this is not a safe plan. Relayed information to pt. Pt will accept bed at [facility]. Informed pt that she would go to SNF tomorrow. Pt will discuss with family. Pt does not have family or friends that can provide transportation. Pt states that she has received rides from [employer] and it is typically covered under her insurance plan. Informed pt that social work would follow up on transportation and provide pt with a time for discharge. Social work will continue to follow up as needed.
--- NOTE | 2023-05-31 19:52 | PC.NURSE ---
Patient pleasant, alert and oriented. Transferred and ambulated short distance with gait belt, walker and stand by assist of 2. Up in recliner for a few hours this afternoon. Reported was comfortable in recliner and napped. PRN Zofran given x1 for c/o nausea. Given scheduled pain medications for discomfort. Tolerated regular diet. Tolerated dressing changes to bilateral LE and buttocks. Crying this evening re: being discharged to SNF tomorrow that was not close to home.
[2023-05-31] MEDS: MELATONIN 3 MG TABLET PO (21:22)
[2023-05-31 23:00] VITALS: RESP 18
[2023-06-01 07:00] VITALS: BP 146/74; PULSE 80; RESP 18; TEMP 36.5; O2SAT 96
[2023-06-01 07:03] LABS: Hematocrit 26.5 % (33.0-51.0); Mean Corpuscular HGB Conc 29 gm/dL (32-36); Mean Corpuscular Hemoglobin 26 pg (26-34); Mean Corpuscular Volume 90 fL (80-100); Platelet Count* 222 K/uL (140-440); Red Blood Count 2.94 m/uL (4.00-5.20); White Blood Count* 3.96 K/uL (4.50-11.00)
[2023-06-01 07:05] LABS: Albumin* 3.1 g/dL (3.3-5.0); Chloride* 103 mmol/L (96-114); Sodium* 136 mmol/L (135-149)
[2023-06-01 07:06] LABS: Potassium* 4.4 mmol/L (3.6-5.1)
[2023-06-01 07:08] LABS: Anion Gap 5 mEq/L (7-15); Blood Urea Nitrogen* 23 mg/dL (7-30); Carbon Dioxide* 28 mmol/L (20-32); Est. Creatinine Clearance* 42.59; Estimated Glomerular Filt Rate 61 ml/min
[2023-06-01 07:09] LABS: Calcium* 8.6 mg/dL (8.4-10.6); Glucose* 90 mg/dL (60-115); Phosphorus* 4.9 mg/dL (2.5-4.5)
[2023-06-01 07:25] LABS: Hemoglobin* 7.7 gm/dL (12.0-16.0); Slide Review Reflex No
[2023-06-01] MEDS: ONDANSETRON ODT 4 MG TAB PO (08:09)
[2023-06-01] MEDS: LACTOBACILLUS ACIDOPHILUS 1 TABLET 2 TAB PO (08:09)
[2023-06-01] MEDS: FERROUS SULFATE 325 MG TABLET PO (08:57)
[2023-06-01] MEDS: FUROSEMIDE 20 MG TABLET PO (08:57)
[2023-06-01] MEDS: CITALOPRAM HYDROBROMIDE 20 MG TABLET PO (08:57)
[2023-06-01] MEDS: ACETAMINOPHEN 500 MG TABLET 1000 MG PO (08:57)
[2023-06-01] MEDS: HEPARIN 5,000 UNIT/0.5 ML INJ 5000 UNIT SUBCUT (08:58)
[2023-06-01] MEDS: NYSTATIN CREAM 30 GM 1 APPLIC TOPICAL (08:58)
[2023-06-01] MEDS: NYSTATIN POWDER 1 APPLIC TOPICAL (08:58)
[2023-06-01] MEDS: SODIUM CHLORIDE 0.9 % (FLUSH) 10 ML SYRINGE 5 ML IVF (08:59)
[2023-06-01 09:34] VITALS: BP 139/71; PULSE 84; RESP 18; TEMP 36.5; O2SAT 94
[2023-06-01 09:57] VITALS: BP 135/67; PULSE 79; RESP 20; TEMP 36.5; O2SAT 95
[2023-06-01 10:42] VITALS: BP 146/73; PULSE 79; RESP 20; TEMP 36.3; O2SAT 95
[2023-06-01 12:11] LABS: Hemoglobin* 9.6 gm/dL (12.0-16.0)
--- NOTE | 2023-06-01 12:12 | PC.SOCIAL ---
Discharge planning- Phone call to Nataliia in admissions at [facility] at [phone]. Confirmed with Nataliia that pt will accept bed for today. EMS transport is set for pt for 1:00 pm. Orders can be faxed to [phone]. Completed Preadmission screening. Confirmation #[id number]. Provided PAS# to admissions at [facility]. Provided pt with a copy of IM Medicare rights form, copy in pt chart. Social work will follow up as needed.
--- NOTE | 2023-06-01 15:22 | PC.NURSE ---
Nursing Care Hours: [id number] Pt this shift calm and cooperative, alert and oriented with c/o fatigue. VSS. IV started for blood transfusion. 1 unit PRB transfused without issue. Pain on tailbone rated 4/10, scheduled medicine effective. 1 assist with walker and gait belt up to chair. Eating and drinking sufficiently. Gutierrez patent. Therapeutic communication offered when pt showing signs of anxiety regarding transfer to rehab, effective. IV removed for discharge. New drainage pad applied to bilat glutes d/t soiled pad. did not pack wound this shift. EMS transfer, report given to nurse at [facility] over the phone
--- NOTE | 2023-06-02 16:25 | P.DS_ITS ---
DS: Providers Provider Date Seen: 06/01/23 Date of admission: 05/14/23 05:01 Primary care physician: Blade Monsalve MD Admitting Clinician: Wellington Mittal MD Consults: 05/14/23 05:53 Consult to Physical Therapy [CONS] Urgent Comment: Reason(s) for PT Consult:: Evaluate and Treat Any Restrictions?:: No Restrictions Consult to [employer] Helper [CONS] Urgent Comment: Reason for Consult:: Discharge Planning Needs 05/14/23 06:42 Consult to [employer] Helper [CONS] Routine Comment: Reason for Consult:: Discharge Planning Needs 05/14/23 06:49 Consult to Physician [CONS] Routine Comment: Consulting Provider: [facility], [facility] Has provider been notified: No 05/14/23 06:54 Consult to Wound Care [CONS] Routine Comment: [facility]ing [facility] 05/17/23 09:20 Consult to Occupational Therapy [CONS] Routine Comment: Reason(s) for OT Consult:: Evaluate and Treat Any Restrictions?:: No Restrictions Attending Physician on discharge: Juan Constantino MD Date of Discharge: 06/01/23 DS: Diagnosis Discharge Diagnosis (1) Cellulitis of gluteal region: Status: Acute Problem details: desquamation noted of both buttocks. warm; draining minimally bacteremic w/entercoccus IV daptomycin (COMPLETED 05/28), oral diflucan (COMPLETED) -continue topical nystatin (2) Panniculitis: Status: Acute Problem details: topical nystatin oral diflucan x 7 days (COMPLETED) wound cares (3) Enterococcal bacteremia: Status: Acute Problem details: -source is her skin breakdown -blood cultures no growth -changed ertapenem and vancomycin to IV daptomycin per ID consult -completed 7 days of IV antibiotics (1st day 05/15 at 0500; end afternoon 05/21). Linezolid not compatible with her current outpatient medication regimen, so she is remaining on daptomycin for 14 days total. This should be finished Monday 05/28 -COVID positive by antigen and PCR, quarantine 05/18 - 05/27 (COMPLETED) -TTE negative for obvious vegetation 05/28: DAPTOMYCIN COMPLETED (4) Stage IV pressure ulcer of sacral region: Status: Chronic Problem details: - This is a chronic ulcer for which she has failed outpatient treatment -however she has not been compliant with therapies/outpatient appts - Dr. Gonzáles was consulted through ED in 04/05, planned for OR debridement and patient refused. Dr. Gonzáles reevaluated 05/18 - no surgery indicated. - previous outpatient wound care at and then [place] -pt did not follow-thru with appts and will need alternative care options at discharge (will need SNF initially) - patient in agreement (after discussing appropriate settings - [facility] vs Assisted living vs SNF/NH) - stressed the importance of offloading her wounds. With her words she says that she likes the lay on her side but in actuality she lays on her back most of the day and night. 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 1 assist for ambulation/transfers, IMPROVING 05/28: SHALE PLANER OPERATOR CONTINUES TO WORK ON FINDING PLACEMENT 06/01: [facility] accepts patient for transitional cares services with patient goal of returning home when safe and feasible. (7) COVID-19: Status: Acute Problem details: -completed 5 day Paxlovid course on 05/17 at 9:00 p.m. -date of pos test - unclear home positive. given paxlovid on 05/10 from our ED - unclear if she took this between 05/10 and presentation on 05/14. -antigen pos 05/17 and PCR positive 05/17. we only had a reported home pos on or about 05/09 -05/10 -resolving, should be out of quarantine 05/28. business services intern aware for placement needs. (QUARANTINE COMPLETED) (8) Bilateral leg weakness: Status: Chronic Problem details: PT and OT, business services intern assisting with SNF placement (9) Chronic acquired lymphedema: Status: Chronic Problem details: -complicating above, bilateral lower extremity wraps (10) Chronic, continuous use of opioids: Status: Acute Problem details: - Per [facility] record: Reduced her MS Contin from 15 mg in the morning and 30 mg in the evening to 15 mg twice daily on 09/14/2022. -patient requested Ativan, would avoid benzos. Encourage breathing techniques, calming environment, essential oils (11) Diarrhea: Status: Resolved Problem details: -C diff negative 05/14/2023 -added cholestyramine and Imodium for stool control -covarrubias in place -wound care ongoing -05/25 RESOLVED. Having on average soft stool a day or every other day. (12) Iron deficiency 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: Status: Chronic Problem details: -Hg 7.6 on 05/17 -8.9 on 05/18 after 1 unit PRBCs -8.7, within baseline 8.5-9.0 -7.7 on 06/01, improved to 9.7 after 1 unit PRBC transfusion (13) CKD (chronic kidney disease), stage III: Status: Chronic Problem details: -creatinine stable, baseline 0.8-1.2. Daptomycin completed (14) Morbid obesity: Status: Chronic Problem details: -chronic, complicating above -interestingly, she estimated her admission weight was 100 kg. Actual admission weight was 124 kg. Weight gradually since admission. On 05/31/2023 weight is down to 111.7 kg. (15) Essential hypertension: Status: Chronic Problem details: - continue furosemide for HTN and lymphedema/LE edema DS: Summary Hospital Course Hospital Course: History of present illness: ?Gracia Braxton [id number] female with complex medical history dominated by morbid obesity, chronic lymphedema, chronic lower extremity ulcers and gluteal ulcers with past history of prior osteomyelitis in the gluteal region and now with recent COVID-19 who presented to the emergency room tonight with increasing weakness and worsening pain in the gluteal region. She was recently diagnosed with COVID-19 3 days ago and started on Paxlovid. Her COVID symptoms are relatively mild with no fever mild cough and fatigue. She has had worsening decubiti ulcer gluteal region skin breakdown and has not been able to receive her wound care to her lower extremities from her lymphedema due to wound care not being able to come to the house because of the COVID. Her buttocks has significant pain and seems to be progressing. In the emergency room she was hemodynamically stable without fever. Does not appear to septic at this time. Case was discussed and we decided to initiate therapy with vancomycin and ertapenem given her multiple allergies. She is being admitted for wound care, s urgical evaluation for wound care and evaluation for her home safety and ability to care for self due to the complex medical problems. Her condition being multifaceted and complex, it took a while for us to address each problem safely. For details of how we address the various problems see statements under the discharge summary section above. Status at Discharge Functional status at discharge: uses cane/walker Overall status at discharge: patient is not back to baseline Time Spent with Patient Time attestation: Total time spent providing and/or coordinating discharge services: Time spent: Greater than 30 minutes Exam Narrative: Exam Narrative: Examined patient in her own hospital room. Remarkably she is actually laying on her side today. Appears comfortable and in no acute distress. Lungs are clear to auscultation. Heart tones with regular rhythm. Abdomen is obese. And on examine her wounds today, they are clean and improving. Discharge Plan Discharge Disposition: [facility] Date of Admission: 05/14/23 05:01 Attending Provider on Discharge: Juan Constantino Consulting Providers: Lucrecia Moreno; Vita Choi Primary Care Provider: Blade Monsalve Condition: Improved Anticipated Discharge Date/Time: 06/01/23 12:30 Discharge Medications: New cholestyramine-aspartame 4 gram Powder In Packet 1 ea PO BID 30 Days Qty: 60 1RF Lactobacillus acidophilus 0.5 mg (100 million cell) Tablet 1 mg PO TIDWM Qty: 180 0RF loperamide 2 mg Capsule 2 mg PO Q2H PRN14 Days Qty: 20 0RF melatonin 3 mg Tablet 3 mg PO HS 30 Days Qty: 30 0RF nystatin 100,000 unit/gram Cream 1 applic topical TID 14 Days Qty: 30 3RF nystatin 100,000 unit/gram Powder 1 applic topical BID 14 Days Qty: 30 0RF oxycodone 5 mg Tablet 5 mg PO DAILY PRN14 Days Qty: 14 0RF Continued lidocaine 4 % cream 1 applic topical DAILY PRN (Reason: dressing change) potassium chloride 10 mEq tablet extended release 10 meq PO DAILY citalopram 20 mg tablet 20 mg PO DAILY lorazepam 0.5 mg tablet 0.5 mg PO BID PRN morphine 15 mg tablet extended release 15 mg PO BID PRN furosemide 20 mg tablet 20 mg PO DAILY ferrous sulfate 325 mg (65 mg iron) tablet,delayed release (DR/EC) 325 mg PO DAILY ondansetron 4 mg tablet,disintegrating 4 mg PO Q8H PRN acetaminophen 500 mg capsule 1,000 mg PO TID PRN ammonium lactate [Skin Treatment] 12 % lotion 1 applic topical BID PRN ascorbic acid (vitamin C) 1,000 mg capsule 1 g PO DAILY cholecalciferol (vitamin D3) [Weekly-D] 1,250 mcg (50,000 unit) capsule 1,250 mcg PO 2XW diphenhydramine HCl [Allergy (diphenhydramine)] 25 mg capsule 25 mg PO Q6H PRN polyethylene glycol 3350 [Miralax] 17 gram/dose powder 17 g PO DAILY PRN Discontinued silver sulfadiazine [SSD] 1 % cream 1 applic topical DAILY triamcinolone acetonide 0.1 % cream 1 applic topical BID levofloxacin 500 mg tablet 500 mg PO DAILY 10 Days Qty: 10 0RF Paxlovid 300 mg (150 mg x 2)-100 mg tablets,dose pack See Rx Instructions PO .COMPLEX Qty: 30 0RF Rx Instructions: take TWO 150 mg tablets of nirmatrelvir with ONE 100 mg tablet of ritonavir twice daily for 5 days Discharge Orders: Discharge Order (Routine); Ordered 06/01/23 Ordered By: Juan Constantino Activity Level: Activity as Tolerated and Use Walker Discharge Diet: Regular Follow Up Appointments: Blade Monsalve MD [Primary Care Provider] - Forms: [facility] Info Instructions Wound Care: sacral region: Dressing Change orders: Cleanse wound with Vashe wound cleanser. Pat area dry. Apply zinc barrier cream to immediate wound edges and extend to pressure ulcers on bilateral buttocks. Likely no dressing with stick to this amount of denudement. Moisten kerlix gauze with Vashe wound cleanser. Pack kerlix into wound bed. Cover with ABD pad. Change dressing daily. : Bilateral Calf wounds: Cleanse wound with Vashe wound cleanser. If able allow Vashe moistened gauze to remain on wound bed for 3-5 minutes to help with bioburden breakdown. Pat dry. Apply skin prep if able to immediate wound edges. Apply either melgisorb or aquacel with silver to wound bed. Cut to fit dressing to size of wound. Cover with ABDs, wrap with kerlix to secure. Tape only on kerlix. No tape on skin. Change dressing Wednesday/Wednesday/Wednesday. Admit to: SNF Discharge Potential: Fair Length of Stay: <30 days Can use facility standing orders?: Yes Code Status: Full Code TEDs: Bilateral Knee Rehab Potential: Fair Therapy: Physical Therapy and Occupational Therapy Therapy Orders: Evaluate and Treat Oxygen: No Urinary Catheter: No Lab Orders: hemoglobin on 08 June 2023 Orders are good >30 days: Yes Signature: Juan Constantino
--- NOTE | 2023-06-17 16:48 | PC.SOCIAL ---
Social work: Received call from [facility] Vulnerable adult worker, Omayra Gonzalez, requesting information from pt's chart be sent as this is an open Vulnerable Adult case. Faxed requested face sheet, MD note and social work note from most recent hospital visit to Omayra.
== END 2023-06-01 12:47 | DRG 592 ==
LOC: ED 03:14 → MEDSURG 05:02
PROVIDERS: Family Medicine; Internal Medicine; Physician Assistant; Admitting Provider Internal Medicine; Emergency Provider Family Medicine; PCP Family Medicine; Visit Provider Internal Medicine
DX: L89.154 Pressure ulcer of sacral region, stage 4 (principal); U07.1 COVID-19; L03.317 Cellulitis of buttock; L97.222 Non-pressure chronic ulcer of left calf with fat layer exposed; L97.212 Non-pressure chronic ulcer of right calf with fat layer exposed; L97.102 Non-pressure chronic ulcer of unspecified thigh with fat layer exposed; Z68.43 Body mass index [BMI] 50.0-59.9, adult; R78.81 Bacteremia; F33.9 Major depressive disorder, recurrent, unspecified; E66.01 Morbid (severe) obesity due to excess calories; I89.0 Lymphedema, not elsewhere classified; G89.29 Other chronic pain; L30.4 Erythema intertrigo; M79.3 Panniculitis, unspecified; I12.9 Hypertensive chronic kidney disease with stage 1 through stage 4 chronic kidney disease, or unspecified chronic kidney disease; N18.30 Chronic kidney disease, stage 3 unspecified; N61.0 Mastitis without abscess; N39.41 Urge incontinence; I87.2 Venous insufficiency (chronic) (peripheral); D50.1 Sideropenic dysphagia; R19.7 Diarrhea, unspecified; L89.322 Pressure ulcer of left buttock, stage 2; L89.312 Pressure ulcer of right buttock, stage 2; B95.2 Enterococcus as the cause of diseases classified elsewhere; Z91.199 Patient's noncompliance with other medical treatment and regimen due to unspecified reason; F11.90 Opioid use, unspecified, uncomplicated; F41.0 Panic disorder [episodic paroxysmal anxiety]; F34.1 Dysthymic disorder; G47.00 Insomnia, unspecified; G25.81 Restless legs syndrome
CPT/HCPCS: 36415; 36430; 80048; 80053; 80069; 81001; 82330; 82550; 82803; 82962; 83036; 83540; 83550; 83605; 83735; 83880; 84145; 84484; 85018; 85025; 85027; 86140; 86850; 86900; 86901; 86922; 87040; 87070; 87077; 87081; 87086; 87186; 87426; 87493; 87631; 87635; 93308; 93321; 93325; 94664; 97110; 97116; 97162; 97166; 97530; 97535; 99284; 99291; A0425; A0427; A0428; A9270; J0878; J1335; J1644; J2270; J3370; J7050; J7120; P9016

== ENCOUNTER 2023-10-02 13:29 | Outpatient (CLI) | payer MEDICARE, SELFPAY ==
--- OUTSIDE RECORDS SUMMARY | 2023-10-09 07:57 | XMS_ITS | Clinical Summary ---
Author Name Unknown Organization [facility] Address [place], [place] [address] Care Team Providers Care Steward/Stewardess Lounge Name Role Phone Elaine Sapp MD Unavailable Mary Lo NP Unavailable [facility], [place] Unavailable Hill Broderick MD Primary Care Provider [phone] [facility], [place] Unavailable Allergies Active Allergy Reactions Criticality Noted Date Comments Buspirone Other - Describe In Comment Field 12/25/2021 Too sleepy Doxycycline Nausea And Vomiting 10/08/2016 Cephalexin Nausea Only 12/16/2017 Latex Itching 07/18/2014 Itching Itching on hands, peeling on hands while at [facility] Latex, Natural Rubber Itching 01/10/2016 itching Lisinopril [...] Sapp of Oncology. we will test in [place] so she does not have to go to [place]. Leukocytosis 01/22/2015 Leg weakness, bilateral 12/13/2014 Dysthymia [...] Encounters Date Type Department Care Team Description 10/03/2023 Orders Only [facility] Scanner 1 scan: (1-Ord) [facility], XR KNEE LT 2V, 10/03/2023 10/02/2023 Orders Only [facility] Scanner 1 scan: (1-Ord) [facility], XR CHEST 1V, 10/02/2023 10/01/2023 Nurse Triage [facility] [address] [place] [address] Hill Broderick MD Medication Management 10/01/2023 Nurse Triage [facility] [address] [place] [address] Hill Broderick MD Error-please disregard (error) from Last 3 Months Immunizations Name Administration Dates Next Due COVID-19 vaccine (Moderna 10 0mcg/0.5mL) DUTCH ANDREW 02/10/2021 COVID-19 vaccine (Pfizer-Bio NTech 30mcg/0.3mL) 12YO+ [...] Hyperlipidemia Sister 2 Tiki Hypertension Sister 2 [place] Relation Name Status Comments Brother 1 Rocky [...] 139.7 kg (308 lb) 05/30/2019 2:02 PM PUNCH PRESS SETTER Height 152.4 cm (5') 05/30/2019 2:02 PM PUNCH PRESS SETTER Body Mass Index 60.15 05/30/2019 2:02 PM PUNCH PRESS SETTER Plan of Treatment Health Maintenance Due Date [...] Completed 01/24/2019 Medical Devices Implanted Type Area Fire Fighting Equipment Specialist Device Identifier Shelf Expiration Date Model / Serial / Lot Tissue Matrix [id number] Apligraf Implanted:Qty: 3 on 12/18/2015 by Dimitri Oretga MD at [facility] [id number] / / [id number] Description:TISSUE MATRIX 44 [id number] APLIGRAF Procedures Procedure Name Priority Date/Time Associated Diagnosis Comments SCAN-RADIOLOGY REPORT 10/03/2023 12:00 AM CDT SCAN-RADIOLOGY REPORT 10/02/2023 12:00 AM CDT LC LIPID PANEL AND CHOL/HDL RATIO Routine 07/22/2022 3:28 PM PUNCH PRESS SETTER Screening for lipid disorders ANTI HCV Routine 01/24/2019 3:44 PM CDT Need for hepatitis C screening test from Last 3 Months or Most Recently Relevant to Health Maintenance Results * SCAN-RADIOLOGY REPORT (10/03/2023 12:00 AM CDT) Only the most recent of2 resultswithin the time period is included. Anatomical Region Laterality Modality Other Scanner OTHER * LC LIPID PANEL AND CHOL/HDL RATIO (07/22/2022 3:28 PM PUNCH PRESS SETTER) [facility] Cholesterol, Total 109 100 - 199 mg/dL 07/24/2022 12:08 PM [facility] Triglycerides 108 0 - 149 mg/dL 07/24/2022 12:08 PM [facility] HDL Cholesterol 49 >39 mg/dL 12:08 PM [facility] VLDL Cholesterol [place] 20 5 - 40 mg/dL 07/24/2022 12:08 PM [facility] LDL Chol Calc (NIH) 40 0 - 99 mg/dL 07/24/2022 12:08 PM [facility] T. Chol/HDL Ratio 2.2 0.0 - 4.4 ratio 07/24/2022 12:08 PM [facility] Comment: ?T. Chol/HDL Ratio ?Men ??Women ?1/2 Avg.Risk ??3.4 ?3.3 ?Avg.Risk ??5.0 ?4.4 ? 2X Avg.Risk ??9.6 ?7.1 ? 3X Avg.Risk 23.4 ?? 11.0 Blood BLOOD SPECIMEN / Unknown Butterfly / Unknown 07/22/2022 3:28 PM PUNCH PRESS SETTER 07/22/2022 3:32 PM PUNCH PRESS SETTER Narrative [facility] - 07/24/2022 12:08 PM PUNCH PRESS SETTER Performed at: [address] ??[id number] Smoking Pipe Mounter: Bari Smith MD, Phone: ??[phone] Hill Broderick MD SEND OUTS [facility] [address] [place] [id number] * ANTI HCV (01/24/2019 3:44 PM CDT) HEPATITIS C ANTIBODY Non-React tamica Non-React tamica 01/25/2019 1:48 AM CDT [facility] Comment:Antibodies to HCV no t detected; does not exclude the possibility of exposure to HCV. Blood BLOOD SPECIMEN / Unknown Butterfly / Unknown 01/24/2019 3:44 PM CDT 01/24/2019 3:44 PM CDT Blade Monsalve MD [facility] [address] [place] [address], from Last 3 Months or Most Recently Relevant to Health Maintenance Additional Health Concerns Infection Onset Date Last Indicated MRSA Comment:Order contact precautions. Nares surveillance cultures needed to clear patient. #1 #2 +MRSA RLE 12/05/15 12/08/2015 12/08/2015 Advance Directives Documents on File Type Date Recorded Patient Psychology Lecturer Expl anation Healthcare Directive 11/24/2022 023 * [...] Comments Code Status Discussion: Discussed Care Teams Steward/Stewardess Lounge Relationship Specialty Start Date End Date Hill Broderick MD [facility] [place] [address] PCP - General Family Practice 05/06/22 Elaine Sapp MD [address] [place] [address] Hematology 10/06/21 Mary Lo NP [address] [place] [address] Hematology 10/06/21 [facility] [place] [address] [place] [id number] 03/03/22 [facility] [place] [address], [place] [address] 10/12/22
== END 2023-10-02 13:30 | disposition home or self-care (01) ==
LOC: AMB 10-09 07:54
PROVIDERS: PCP Family Medicine; Visit Provider Family Medicine
DX: M54.9 Dorsalgia, unspecified (principal)
CPT/HCPCS: A0425; A0429

== ENCOUNTER 2023-10-02 14:12 | Inpatient (IN) | payer MEDICARE, SELFPAY ==
[2023-10-02 14:15] VITALS: BP 142/126; PULSE 119; RESP 26; TEMP 36.3; O2SAT 97
--- OUTSIDE RECORDS SUMMARY | 2023-10-02 15:01 | XMS_ITS | Clinical Summary ---
Author Name Unknown Organization [facility] Address [place], [place] [address] Care Team Providers Care Lining Strap Closer Name Role Phone Elaine Sapp MD Unavailable Mary Lo NP Unavailable [facility], [place] Unavailable Hill Broderick MD Primary Care Provider [phone] [facility], [place] Unavailable Allergies Active Allergy Reactions Criticality Noted Date Comments Buspirone Other - Describe In Comment Field 12/25/2021 Too sleepy Doxycycline Nausea And Vomiting 10/08/2016 Cephalexin Nausea Only 12/16/2017 Latex Itching 07/18/2014 Itching Itching on hands, peeling on hands while at [facility] Latex, Natural Rubber Itching 01/10/2016 itching Lisinopril Cough 10/06/2011 Cough Penicillins Hives,*Unknown - Childhood Rxn Tolerated ancef/keflex/ceftriax one 2014 Unknown----tolerated ancef/keflex/ ceftriaxone 2014 Tolerated ancef/keflex/ceftriax one 2014 Sulfa (Sulfonamide Antibiotics) Nausea Only Medications Medication Sig Dispensed Refills Start Date End Date Status omega-3 fatty acids-vitamin E (FISH OIL) 1,000 mg CapIndications:Leg ulcer (HC),HTN (hypertension) Take 1 capsule by mouth once daily. 0 07/08/2011 Active acetaminophen (TYLENOL EXTRA STRGTH) 500 mg tabletIndications:Ul cers of both lower extremities with fat layer exposed (HC) Take 2 tablets by mouth 3 times daily. Max acetaminophen dose: 4000mg in 24 hrs. 90 tablet 01/02/2016 Active polyethylene glycoL (MIRALAX) 17 gram/scoop powder Take 17 g by mouth once daily if needed for Constipation. 01/28/2018 Active cholecalciferol (VITAMIN D3) 50,000 unit capsuleIndications:V itamin D deficiency Take one capsule twice a week 13 capsule 3 12/03/2019 Active diphenhydrAMINE (BENADRYL) 25 mg tablet Every 6 Hours as needed Active miscellaneous medical supply miscIndications:Stag e IV pressure ulcer of sacral region (HC) As directed. 1 unit 11 10/10/2020 Active ascorbic acid, vitamin C, (Vitamin C) 1,000 mg tabletIndications:Fr equent UTI Take 1 Tablet (1,000 mg) by mouth once daily. 90 Tablet 3 08/11/2021 Active triamcinolone (ARISTOCORT; KENALOG) 0.1 % creamIndications:Oth er eczema Apply topically to affected area(s) two times daily. 60 g 5 03/03/2022 Active ammonium lactate 12% topical (LACHYDRIN) 12 % lotionIndications:Dr dumont skin Apply topically to affected area(s) two times daily. 396 g 03/03/2022 Active miscellaneous medical supply miscIndications:Stag e IV pressure ulcer of sacral region (HC),Venous stasis ulcer of thigh with fat layer exposed, unspecified laterality, unspecified whether varicose veins present (HC) As directed. Abdominal dressings 30 Each 06/09/2022 Active disposable glovesIndications:St age IV pressure ulcer of sacral region (HC),Venous stasis ulcer of thigh with fat layer exposed, unspecified laterality, unspecified whether varicose veins present (HC) FOR HOME USE WANTS TWO LARGE 200 Each 06/11/2022 Active medication order composerIndications: Urge incontinence of urine Pull-ups as needed for urinary incontinence 36 Each 06/11/2022 Active citalopram (CELEXA) 20 mg tabletIndications:Dy sthymia,Anxiety Take 1 Tablet (20 mg) by mouth once daily. 90 Tablet 3 09/14/2022 Active furosemide (LASIX) 20 mg tabletIndications:Bi lateral lower extremity edema Use one daily 90 Tablet 3 09/14/2022 Active LORazepam (ATIVAN) 0.5 mg tabIndications:Panic attacks,Other insomnia TAKE ONE TABLET BY MOUTH ONCE DAILY NEEDED FOR PANIC ATTACKS OR INSOMNIA (MAX DOSE OF 2 TABLETS IN A 24 HOURS PERIOD) 45 Tablet 1 09/14/2022 Active ondansetron (ZOFRAN ODT) 4 mg disintegrating tabletIndications:Na usea PLACE ONE TABLET ON THE TONGUE EVERY 8 HOURS NEEDED FOR NAUSEA/VOMITING 20 Tablet 1 09/14/2022 Active silver sulfADIAZINE (SILVADENE) 1 % creamIndications:Lym phedema,Skin rash Apply topically to affected area(s) once daily. 85 g 10/12/2022 Active medication order composerIndications: Stage IV pressure ulcer of sacral region (HC),Venous stasis ulcer of thigh with fat layer exposed, unspecified laterality, unspecified whether varicose veins present (HC) Remove old dressing , cleanse with Normal Saline,apply Daikins solution soaked guaze to wound bed and remove after 15 minutes,apply calcium alginate to wound bed, cover with ABD pad, wrap with kerlix. Change daily and prn.Remove old dressing , cleanse with Normal Saline,apply Daikins solution soaked guaze to wound bed and remove after 15 minutes,apply calcium alginate to wound bed, cover with ABD pad, wrap with kerlix. Change daily and prn. 1 Bottle 11 10/14/2022 Active Diaper,Brief, Adult,Disposable (Per-Fit Underwear)Indication s:Urge incontinence of urine FOR HOME USE 96 Each 11 01/05/2023 Active lidocaine 4 % creamIndications:Leg ulcer, unspecified laterality, with necrosis of muscle (HC) Apply daily to affected areas prior to dressing change 45 g 11 02/11/2023 Active ferrous sulfate, 65 mg elemental, 324 mg (65 mg iron) Delayed-Release tabletIndications:Ir on deficiency 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 Take 1 Tablet (324 mg) by mouth once daily. 30 Tablet 5 02/19/2023 Active potassium chloride (KLOR-CON) 10 mEq extended-release tablet (part/cryst)Indicati ons:Bilateral lower extremity edema Take 1 Tablet (10 mEq) by mouth once daily with a meal. 90 Tablet 3 02/19/2023 Active wheelchairIndication s:Arthritis of right knee,Leg weakness, bilateral,Chronic acquired lymphedema,Stage IV pressure ulcer of sacral region (HC) Wheelchair: Bariatric (over 250 lbs) with leg rests: (Swing away Length of need: 99 months 1 Each 03/12/2023 Active Alginate Dressing 4 X 4 bndgIndications:Ulce rs of both lower extremities with fat layer exposed (HC) Apply topically to affected area(s). 30 Each 11 04/07/2023 Active miscellaneous medical supply miscIndications:Stag e IV pressure ulcer of sacral region (HC),Venous stasis ulcer of thigh with fat layer exposed, unspecified laterality, unspecified whether varicose veins present (HC) As directed. Paper tape for dressings. 2 unit 11 04/07/2023 Active miscellaneous medical supply miscIndications:Stag e IV pressure ulcer of sacral region (HC),Venous stasis ulcer of thigh with fat layer exposed, unspecified laterality, unspecified whether varicose veins present (HC) As directed. kerliz gauze for leg wound dressing changes- ok to dispense individual wrapped kerlix or kerlix per bag 40 Each 11 04/07/2023 Active miscellaneous medical supply miscIndications:Stag e IV pressure ulcer of sacral region (HC),Venous stasis ulcer of thigh with fat layer exposed, unspecified laterality, unspecified whether varicose veins present (HC) As directed. Saline for dressing changes. 2 unit 11 04/07/2023 Active miscellaneous medical supply miscIndications:Stag e IV pressure ulcer of sacral region (HC),Venous stasis ulcer of thigh with fat layer exposed, unspecified laterality, unspecified whether varicose veins present (HC) As directed. 4x4 squares for leg wound dressing changes. 30 Each 11 04/07/2023 Active morphine CONTROLLED-RELEASE (MS CONTIN) 15 mg tabletIndications:Ul cers of both lower extremities with fat layer exposed (HC) Take 1 Tablet (15 mg) by mouth every 12 hours. 60 Tablet 05/04/2023 Active Active Problems Problem Noted Date Diagnosed Date Arthritis of right knee 03/12/2023 Overview: Moderate to marked on 2013 MRI Stage IV pressure ulcer of sacral region 023 Other chronic pain 07/22/2022 Overview: Chronic pain due leg ulcers since 2018. She thinks she has been on pain medications since 2019 for the leg ulcers. She was told today (07/22/2022) that she needs to establish care at the pain clinic. She is to notify me as soon as she gets an appointment at the pain clinic. Depression, recurrent 03/04/2022 Urge incontinence of urine 10/28/2017 Panic attacks 10/28/2017 RLS (restless legs syndrome) 08/20/2016 Insomnia 08/20/2016 Bilateral lower extremity edema 04/14/2016 Controlled substance agreement signed 03/04/2016 Vitamin D deficiency 01/17/2016 Left ureteral stone 12/11/2015 MRSA (methicillin resistant Staphylococcus aureu s) 12/05/2015 Overview: RLE Compliance with medication regimen 08/27/2015 CKD (chronic kidney disease), stage III 07/04/19 16 Ulcers of both lower extremities with fat layer exposed 05/30/2015 Overview: In the process of referring her to the pain clinic for chronic pain from this Hill Broderick MD signed electronically .................... 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 Sapp of Oncology. we will test in [place] so she does not have to go to [place]. Leukocytosis 01/22/2015 Leg weakness, bilateral 12/13/2014 Dysthymia 12/13/2014 Chronic acquired lymphedema 11/19/2014 Renal insufficiency 11/15/2014 Venous stasis ulcer of thigh with fat layer expo sed 07/18/2014 Overview: Reduced her MS Contin from 15 mg in the morning and 30 mg in the evening to 15 mg twice daily on 09/14/2022. Elevated TSH 10/17/2013 DJD (degenerative joint disease) of knee 010 Morbid obesity 11/04/2009 Essential hypertension 07/02/2008 Overview: Updated by system to replace inactive record Lymphedema of both lower extremities Resolved Problems Problem Noted Date Diagnosed Date Resolved Date Severe protein-calorie malnu trition ([place]: less than 60% of standard weight) 07/22/20212022 Sacral osteomyelitis 10/13/2015 016 Stage IV pressure ulcer of sacral region 09/12/2015 12/17/2015 Sacral osteomyelitis 08/27/2015 016 Abscess of sacrum 07/14/2015 09/12/2015 Acute osteomyelitis of coccyx 06/30/2015 10/29/2015 Infected skin ulcer with fat layer exposed 06/30/2015 02/13/2016 Anemia of unknown etiology 11/15/2014 0 08/27/2015 Leg ulcer with cellulitis 04/11/2010 Encounters Date Type Department Care Team Description 10/01/2023 Nurse Triage [facility] [address] [place] [address] Hill Broderick MD Medication Management 10/01/2023 Nurse Triage [facility] [address] [place] [address] Hill Broderick MD Error-please disregard (error) from Last 3 Months Immunizations Name Administration Dates Next Due COVID-19 vaccine (Moderna 10 0mcg/0.5mL) PF, MDV 02/10/2021 COVID-19 vaccine (Pfizer-Bio NTech 30mcg/0.3mL) 12YO+ TONY-SUCROSE PF, MDV 07/22/2021 Influenza, High-dose Quadriv alent Inactivated 04/01/2020 Influenza, IIV3 (Age >=3 years) 05/20/2018,06/17 Influenza, IIV4 05/30/2019,05/15/2016,04/17/2015 Influenza, IIV4 (=>6mos) MDV 03/22/2017,04/17/20 15 Influenza, Inactivated AIIV4 (Age 65+ Years) Preserv Free 07/22/2021 Tdap 03/04/2011 Tuberculin Skin Test, Unspecified 08/17/2015 Family History Medical History Relation Name Comments Diabetes Brother 2 Ray Heart Disease Brother 2 Ray Heart Disease Father Tiburcio Hernandez Hypertension Father Tiburcio Hernandez Other Mother Coretta Dementia Hyperlipidemia Sister 2 Tiki Hypertension Sister 2 Tiki Relation Name Status Comments Brother 1 Rocky Alive Brother 2 Ray (Age 58) Father Tiburcio Hernandez (Age 50s) Mother Coretta (Age 70) Sister 1 Concetta Alive Sister 2 Tiki Alive Social History Tobacco Use Types Packs/Day Years Used Date Smoking Tobacco: Former Cigarettes 0.3 2 0 06/14/1968 - 06/14/1970 Passive Smoke Exposure: Past Smokeless Tobacco: Never Tobacco Cessation:Counseling Given: Yes Alcohol Use Standard Drinks/Week Comments No 0 (1 standard drink = 0.6 oz pur e alcohol) rare PHQ-2 Answer Date Recorded PHQ-2 TOTAL SCORE 0 02/19/2023 Social Connections Answer Date Recorded Frequency of Communication with Friends and Fami ly Not on file 06/10/2021 Financial Resource Strain Answer Date R ecorded Difficulty of Paying Living Expenses Not on file 06/10/2021 Difficulty of Paying Living Expenses Not on file 06/10/2021 Sex and Gender Information Value Date Recorded Sex Assigned at Not on file Gender Identity Not on file Sexual Orientation Not on file Obstetrics History Para Term AB IAB SAB Ectopic Multiple Livin g Live Births 3 3 3 Date Outcome GA Total Labor Labor/2nd/3rd Weight Sex Delivery Anes PTL Sarai A1 A5 Name Cl in Para Para Para Last Filed Vital Signs Vital Sign Reading Time Taken Comments Blood Pressure 149/72 02/09/2023 1:13 PM CDT Pulse 97 02/09/2023 1:13 PM CDT Temperature 37 ??C (98.6 ??F) 02/09/2023 1:13 PM CDT Respiratory Rate 24 11/26/2022 4:13 PM CDT Oxygen Saturation 95% 02/09/2023 1:13 PM CDT Inhaled Oxygen Concentration - - Weight 139.7 kg (308 lb) 05/30/2019 2:02 PM FACILITY MAINTENANCE MECHANIC Height 152.4 cm (5') 05/30/2019 2:02 PM FACILITY MAINTENANCE MECHANIC Body Mass Index 60.15 05/30/2019 2:02 PM FACILITY MAINTENANCE MECHANIC Plan of Treatment Health Maintenance Due Date Last Done Comments Pneumococcal series for age 65+ (1 of 2 - PCV) 1960 Colonoscopy through age 75 10/16/1999 Zoster (shingles) series for age 50+ (1 of 2) 2004 Mammogram for age 45-75 07/14/2013 07/14/2012 DEXA/DXA scan for age 65+ 10/16/2019 Medicare Wellness for age 65+ 10/16/2019 BMI (ht and wt on same day) for age 18+ 05/30/2020 05/30/2019, 03/31/2017, 02/23/2017, Additional history exists Tetanus booster 03/04/2021 03/04/2011 COVID-19 vaccine series (2022-24 season) 2023 07/22/2021, 02/10/2021, 01/13/2021, Additional history exists Influenza for age 65+ 02/13/2024 07/22/2021 , 04/01/2020, 05/30/2019, Additional history exists Depression screening for age 12+ 02/24/2024 02/23/2023, 02/19/2023, 09/14/2022, Additional history exists Lipids for age 45-75 07/22/2027 07/22/2022, 10/17/2013, 10/19/2012, Additional history exists Tdap Completed 03/04/2011 Hepatitis C screening for ag e 18-79 Completed 01/24/2019 Medical Devices Implanted Type Area Wax Molder Device Identifier Shelf Expiration Date Model / Serial / Lot Tissue Matrix [id number] Implanted:Qty: 3 on 12/18/2015 by Dimitri Ortega MD at [facility] [id number] / / [id number] Description:TISSUE MATRIX 44 [id number] APLIGRAF Procedures Procedure Name Priority Date/Time Associated Diagnosis Comments LC LIPID PANEL AND CHOL/HDL RATIO Routine 07/22/2022 3:28 PM FACILITY MAINTENANCE MECHANIC Screening for lipid disorders ANTI HCV Routine 01/24/2019 3:44 PM CDT Need for hepatitis C screening test from Last 3 Months or Most Recently Relevant to Health Maintenance Results * LC LIPID PANEL AND CHOL/HDL RATIO (07/22/2022 3:28 PM FACILITY MAINTENANCE MECHANIC) [facility] Cholesterol, Total 109 100 - 199 mg/dL 07/24/2022 12:08 PM [facility] Triglycerides 108 0 - 149 mg/dL 07/24/2022 12:08 PM [facility] HDL Cholesterol 49 >39 mg/dL 12:08 PM [facility] VLDL Cholesterol [place] 20 5 - 40 mg/dL 07/24/2022 12:08 PM [facility] LDL Chol Calc ([facility]) 40 0 - 99 mg/dL 07/24/2022 12:08 PM [facility] T. Chol/HDL Ratio 2.2 0.0 - 4.4 ratio 07/24/2022 12:08 PM [facility] Comment: ?T. Chol/HDL Ratio ?Men ??Women ?1/2 Avg.Risk ??3.4 ?3.3 ?Avg.Risk ??5.0 ?4.4 ? 2X Avg.Risk ??9.6 ?7.1 ? 3X Avg.Risk 23.4 ?? 11.0 Blood BLOOD SPECIMEN / Unknown Butterfly / Unknown 07/22/2022 3:28 PM FACILITY MAINTENANCE MECHANIC 07/22/2022 3:32 PM FACILITY MAINTENANCE MECHANIC Narrative [facility] - 07/24/2022 12:08 PM FACILITY MAINTENANCE MECHANIC Performed at: ??01 - [address] ??[id number] Analytics Manager: Bari Smith MD, Phone: ??[phone] Hill Broderick MD [facility]END [facility] ([facility]) [address] [place] [address] * ANTI HCV (01/24/2019 3:44 PM CDT) HEPATITIS C ANTIBODY Non-React tamica Non-React tamica 01/25/2019 1:48 AM CDT [facility] Comment:Antibodies to HCV no t detected; does not exclude the possibility of exposure to HCV. Blood BLOOD SPECIMEN / Unknown Butterfly / Unknown 01/24/2019 3:44 PM CDT 01/24/2019 3:44 PM CDT Blade Monsalve MD SEND OUTS [facility] [address] [place] [address], [place] from Last 3 Months or Most Recently Relevant to Health Maintenance Additional Health Concerns Infection Onset Date Last Indicated MRSA Comment:Order contact precautions. Nares surveillance cultures needed to clear patient. #1 #2 +MRSA RLE 12/05/15 12/08/2015 12/08/2015 Advance Directives Documents on File Type Date Recorded Patient Regulated Program Manager Expl anation Healthcare Directive 11/24/2022 023 * Full Code (Latest Code Status on File) Date Activated Date Inactivated Comments 12/29/2015 1:34 PM 01/03/2016 5:16 PM Question Answer Comments Code Status Discussion: Discussed * Full Code Date Activated Date Inactivated Comments 06/29/2015 3:49 PM 07/10/2015 9:12 PM * Full Code Date Activated Date Inactivated Comments 06/28/2015 6:15 PM 06/29/2015 3:49 PM Question Answer Comments Code Status Discussion: Discussed * Full Code Date Activated Date Inactivated Comments 02/21/2015 9:29 AM 02/22/2015 2:11 AM * Full Code Date Activated Date Inactivated Comments 01/22/2015 7:30 PM 01/26/2015 4:59 PM Question Answer Comments Code Status Discussion: Discussed Care Teams Lining Strap Closer Relationship Specialty Start Date End Date Hill Broderick MD [address] [place] [address] PCP - General Family Practice 05/06/22 Elaine Sapp MD [address] [place] [address] Hematology 10/06/21 Mary Lo NP [address] [place] [address] Hematology 10/06/21 [facility] [place] [address] [address] 03/03/22 [facility] [place] [address] [place] [id number] 10/12/22
[2023-10-02 15:21] LABS: Basophils Absolute Auto 0.06 K/uL (0.00-0.30); Basophils Percent Auto 0.9 % (0.0-3.0); Eosinophils Absolute Auto 0.14 K/uL (0.00-0.50); Hematocrit 37.4 % (33.0-51.0); Hemoglobin* 11.6 gm/dL (12.0-16.0); Immature Granulocytes Abs Auto 0.06 K/uL (0.00-0.30); Immature Granulocytes Pct Auto 0.9 %; Lymphocytes Absolute Auto 1.59 K/uL (0.90-2.90); Lymphocytes Percent Auto 22.7 % (20-44); Mean Corpuscular HGB Conc 31 gm/dL (32-36); Mean Corpuscular Hemoglobin 28 pg (26-34); Mean Corpuscular Volume 91 fL (80-100); Monocytes Percent Auto 9.3 % (0.0-11.0); Neutrophils Absolute Auto 4.51 K/uL (1.7-7.0); Neutrophils Percent Auto 64.2 % (42.0-72.0); Platelet Count* 270 K/uL (140-440); RDW Coefficient of Variation % 12.8 % (11.5-15.5); Red Blood Count 4.13 m/uL (4.00-5.20); White Blood Count* 7.01 K/uL (4.50-11.00)
[2023-10-02 15:24] LABS: Slide Review Reflex No
[2023-10-02 15:34] LABS: Chloride* 105 mmol/L (96-114); Potassium* 4.3 mmol/L (3.6-5.1); Sodium* 141 mmol/L (135-149)
[2023-10-02 15:37] LABS: Anion Gap 12 mEq/L (7-15); Blood Urea Nitrogen* 25 mg/dL (7-30); Carbon Dioxide* 24 mmol/L (20-32); Creatinine* 1.3 mg/dL (0.5-1.5); Estimated Glomerular Filt Rate 45 ml/min
[2023-10-02 15:38] LABS: Calcium* 10.1 mg/dL (8.4-10.6); Glucose* 109 mg/dL (60-115)
[2023-10-02 15:40] LABS: C Reactive Protein* 2.3 mg/dL (0.5-1.0)
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
[2023-10-02] MEDS: LORazepam 1 MG TABLET PO (16:00)
[2023-10-02] MEDS: OXYCODONE 5 MG TABLET PO (16:00)
[2023-10-02 17:41] LABS: Lactate* 1.7 mmol/L (0.5-1.9)
--- NOTE | 2023-10-02 17:41 | P.IMHP_ITS ---
Hospitalist- H&P: HPI History of Present Illness Date Seen: 10/02/23 Chief complaint: Back pain Narrative: Gracia Louise is a 67 year old female who presented to the ER this evening by ambulance for back pain. She has chronic back pain, in addition to multiple other comorbidities. She has not had any recent falls or injuries prior to noting this back pain, no change in bowel or bladder function, no radiculopathy (notes chronic LE pain, unchanged). When asked about her thoughts regarding this back pain, she believes that her PT in recent SNF facility was too much. She was hospitalized here from 05/14/23-06/02/23 for COVID, bacteremia, stage IV sacral ulcer; ultimately discharged to [facility] in [place] for TCU care. While there, she was transitioned off of Morphine to Belbuca patches (Buprenorphine, 150mcg BID). She left [facility] yesterday, AMA. She was given one Belbuca patch upon discharge, took this last night. Called her PCP at 5:35 last night (Wednesday) for medication refills, understanding that this wouldn't be able to be addressed until next week. This morning, she found a leftover MS Contin (15mg tablet) and took this with minimal relief (also took APAP). She continues to have poor mobility; was able to get into her townhouse last night with assistance from her partner Alex and a neighbor. She has been able to stand and pivot, unable to use toilet or shower, using Depends for toileting. ER Course and Findings: - tachycardia and elevated BP - refused imaging of her back and refused IV - reassuring WBC, normocytic anemia (history of this - Hgb slightly higher than baseline), reassuring CMP, normal lactate Upon arrival to the floor, we discussed Gracia's acute issues, chronic issues, and goals of care. She understands that she is unlikely to be able to live alone given her inability to ambulate and safely perform ADLs after 4 months of SNF stay. We discussed that leaving her previous facility AMA was not a safe choice for her. Review of Systems Narrative: - no chest pain, unaware of her tachycardia (baseline HR during past admissions 70-80) - dyspnea on exertion, no cough or hemoptysis - open wound back of R calf - thinks her sacral ulcer has healed up - notes that she didn't feel well today, mild nausea, resolved when I see her [facility] Medical History (Updated 10/02/23 @ 20:43 by Daysi Ventura MD) Ulcer of sacral region, stage 4 ?L98.429 - Non-pressure chronic ulcer of back with unspecified severity (ICD- 10) Stage IV pressure ulcer of sacral region ?L89.154 - Pressure ulcer of sacral region, stage 4 (ICD-10) Chronic pain ?G89.29 - Other chronic pain (ICD-10) Recurrent depression ?F33.9 - Major depressive disorder, recurrent, unspecified (ICD-10) Panic attacks ?F41.0 - Panic disorder [episodic paroxysmal anxiety] (ICD-10) Insomnia ?G47.00 - Insomnia, unspecified (ICD-10) Restless legs syndrome ?G25.81 - Restless legs syndrome (ICD-10) Urge incontinence of urine ?N39.41 - Urge incontinence (ICD-10) Controlled substance agreement signed ?Z79.899 - Other keno terminal operator (current) drug therapy (ICD-10) Vitamin D deficiency ?E55.9 - Vitamin D deficiency, unspecified (ICD-10) MRSA (methicillin resistant staph aureus) culture positive (~12/05/15) ?Z22.322 - Carrier or suspected carrier of Methicillin resistant Staphylococcus aureus (ICD-10) Left ureteral stone (~12/11/15) ?N20.1 - Calculus of ureter (ICD-10) CKD (chronic kidney disease), stage III ?N18.30 - Chronic kidney disease, stage 3 unspecified (ICD-10) Acute osteomyelitis of coccyx (~08/2015) ?M46.28 - Osteomyelitis of vertebra, sacral and sacrococcygeal region (ICD- 10) Ulcers of both lower extremities with fat layer exposed ?L97.912 - Non-pressure chronic ulcer of unspecified part of right lower leg with fat layer exposed (ICD-10) ?L97.922 - Non-pressure chronic ulcer of unspecified part of left lower leg with fat layer exposed (ICD-10) Iron deficiency 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 ?D50.1 - Sideropenic dysphagia (ICD-10) Acute kidney injury (~01/2015) ?N17.9 - Acute kidney failure, unspecified (ICD-10) Dysthymia ?F34.1 - Dysthymic disorder (ICD-10) Bilateral leg weakness ?R29.898 - Other symptoms and signs involving the musculoskeletal system (ICD-10) Chronic acquired lymphedema ?I89.0 - Lymphedema, not elsewhere classified (ICD-10) Chronic, continuous use of opioids ?F11.90 - Opioid use, unspecified, uncomplicated (ICD-10) Venous stasis ulcer of thigh with fat layer exposed ?I83.001 - Varicose veins of unspecified lower extremity with ulcer of thigh (ICD-10) ?L97.102 - Non-pressure chronic ulcer of unspecified thigh with fat layer exposed (ICD-10) Elevated TSH ?R79.89 - Other specified abnormal findings of blood chemistry (ICD-10) DJD (degenerative joint disease) of knee ?M17.9 - Osteoarthritis of knee, unspecified (ICD-10) Morbid obesity ?E66.01 - Morbid (severe) obesity due to excess calories (ICD-10) Essential hypertension ?I10 - Essential (primary) hypertension (ICD-10) Surgical History S/P debridement ?Z98.890 - Other specified postprocedural states (ICD-10) S/P ureteral stent placement ?Z96.0 - Presence of urogenital implants (ICD-10) Family History Brother Diabetes Cardiovascular disease Father Cardiovascular disease High blood pressure Sister High cholesterol High blood pressure Mother Dementia Social History (Updated 10/02/23 @ 19:42 by Daysi Ventura MD) Narrative: Lives independently, partner Alex often with her. 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 Smoked an average of 0.3 packs per day for 2 years, quit in 1970. Denies alcohol use. Denies recreational drug use. Wishes to be full code. Sons Bhargav or Bill would be primary medical decision maker if needed. What is your current living situation?: I presently have a place to live Problems where you live: no known problems Problems where you live details: NA In the past 12 months, utilities in danger of being shut off: no In past 12 months, lack of transportation kept you from medical appts, meetings, work, or getting things needed for daily living: yes In the past 12 mos, have been you worried that your food would run out before you had money to buy more?: never true In the past 12 mos, the food you bought just didn't last and you didn't have money to buy more?: never true Highest level of school completed/degree received: 11th grade Smoking Status: Former smoker What tobacco products do you use: cigarettes Smoking quit date/years: >15 years ago Do you use any of these nicotine containing products: None Second hand tobacco smoke exposure: No How often do you have a drink containing alcohol: never How often do you have six or more drinks on one occasion: Never AUDIT-C Alcohol total score: 0 Non-prescribed substance use: denies use Caffeine: No How often does anyone, including family, friends and others, physically hurt you : never How often does anyone, including family, friends and others, insult or talk down to you: rarely How often does anyone, including family, friends and others, threaten you with harm: never How often does anyone, including family, friends and others, scream or curse at you: never service: No Meds Home Medications and Allergies Home Medications Medication Instructions Recorded Confirmed Type acetaminophen 500 mg capsule 1,000 mg PO TID PRN 03/28/23 05/14/23 History ammonium lactate 12 % lotion (Skin 1 applic topical BID PRN 03/28/23 05/14/23 History Treatment) ascorbic acid (vitamin C) 1,000 mg 1 g PO DAILY 03/28/23 05/14/23 History capsule cholecalciferol (vitamin D3) 1,250 1,250 mcg PO 2XW 03/28/23 05/14/23 History mcg (50,000 unit) capsule (Weekly-D) citalopram 20 mg tablet 20 mg PO DAILY 03/28/23 05/14/23 History diphenhydramine HCl 25 mg capsule 25 mg PO Q6H PRN 03/28/23 05/14/23 History (Allergy (diphenhydramine)) ferrous sulfate 325 mg (65 mg 325 mg PO DAILY 03/28/23 05/14/23 History iron) tablet,delayed release furosemide 20 mg tablet 20 mg PO DAILY 03/28/23 05/14/23 History lidocaine 4 % topical cream 1 applic topical DAILY PRN 03/28/23 05/14/23 History dressing change lorazepam 0.5 mg tablet 0.5 mg PO BID PRN 03/28/23 05/14/23 History morphine 15 mg tablet,extended 15 mg PO BID PRN 03/28/23 05/14/23 History release ondansetron 4 mg disintegrating 4 mg PO Q8H PRN 03/28/23 05/14/23 History tablet polyethylene glycol 3350 17 17 g PO DAILY PRN 03/28/23 05/14/23 History gram/dose oral powder (Miralax) potassium chloride 10 mEq 10 meq PO DAILY 03/28/23 05/14/23 History tablet,extended release Allergies Allergy/AdvReac Type Severity Reaction Status Date / Time amoxicillin Allergy Unknown Verified 03/28/23 13:05 buspirone [From BuSpar] Allergy Unknown Verified 03/28/23 13:16 cephalexin [From Keflex] Allergy Unknown Verified 03/28/23 13:15 doxycycline Allergy Unknown Verified 03/28/23 13:15 latex Allergy Unknown Verified 03/28/23 13:15 lisinopril Allergy Unknown Verified 03/28/23 13:15 Penicillins Allergy Unknown Verified 03/28/23 13:15 Sulfa (Sulfonamide Allergy Unknown Verified 03/28/23 13:15 Antibiotics) Exam Narrative: Exam Narrative: GEN: Gracia is sitting in wheelchair, then moved to bedside chair with assistance. She appears nontoxic, expressed some frustration with her discomfort HEENT: Normal external ears, EOMIs bilaterally, no scleral icterus CV: Sinus tachycardia, no concerning murmurs R: No wheezing, fine bibasilar crackles R>L Ab: Protuberant, pendulous breasts, generalized intertrigo Ext: Significant lymphedema of BLE Skin: Sacral region is persistently erythematous with 3-4 small areas of skin breakdown/abrasion, appears much improved from recent stay. Dry flaking skin on BLEs, erythematous plaques of skin on L upper outer thigh, + blanching, no warmth. R posterior calf has an open ulcer, approximately 2cm x3cm, foul- smelling serous discharge noted. Bandage removed (last changed 09/28) Const: Vital Signs, click to edit/add: Vital Signs - 24 hr 10/02/23 14:15 Temperature 97.3 F L Pulse Rate [Pulse Oximeter] 119 H Respiratory Rate 26 H Blood Pressure [Ri ght Forearm] 142/126 H Pulse Oximetry 97 Oxygen Delivery Me thod Room Air Hospitalist - H&P: Result Labs Labs: Short CBC 10/02/23 Range/Units 15:15 WBC 7.01 (4.50-11.00) K/uL Hgb 11.6 L (12.0-16.0) gm/dL Hct 37.4 (33.0-51.0) % Plt Count 270 (140-440) K/uL BMP 10/02/23 15:15 Sodium 141 Potassium 4.3 Chloride 105 Carbon Dioxide 24 BUN 25 Creatinine 1.3 Glucose 109 Calcium 10.1 Assessment and Plan Assessment and plan (1) Cellulitis: Problem comment: - posterior RLE - has done well with Daptomycin in the past, will restart this (10/01) - wound and blood cultures pending, reassuring lactate, WBC Status: Acute (2) Tachycardia: Problem comment: - ddx: anxiety, early withdrawal from Belbuca, infection, PE - elevated d-dimer; patient unwilling to get CTPE study. High risk for thrombosis given immobility and comorbidities - atelectasis on CXR, no evidence of acute infectious process; will start IS - after risk/benefit discussion, will start Eliquis for ppx, attempt PE study when patient has back pain better controlled Status: Acute (3) CKD (chronic kidney disease), stage III: Problem comment: - baseline creatinine 0.8-1.2 Status: Chronic (4) Chronic, continuous use of opioids: Problem comment: - had been tapering her Morphine prior to SNF stay in May 2023 - at SNF, transitioned to Buprenorphine (Belbuca) 150mcg film BID - we will hold opiates at this time, ask pharmacy for assistance with her Belbuca dosing Status: Acute (5) Morbid obesity: Problem comment: - chronic with BMI 57 - weight on discharge in 06/05 was 111.7kg; 137 on admission 10/02/23 - will continue daily Lasix, monitor daily weights and Strict Is/Os - Nutrition consult Status: Chronic (6) Debility: Problem comment: - acute on chronic - therapies ordered Status: Acute (7) Low back pain: Problem comment: - no red flag symptoms Status: Acute (8) Iron deficiency 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: Problem comment: - typical baseline 8.5-9.0, currently 11.6 - will add oral iron (+ senna if constipating) Status: Chronic (9) Medically noncompliant: Problem comment: - left SNF AMA prior to returning to physical baseline, unclear if she fully understood her abilities as she is still unable to perform ADLs independently - history of refusing recommended medications, procedures, treatments Status: Acute Plan - per above - Eliquis for ppx - Pharmacy consult for Med Rec (attempted 2 different phone # for [facility] on 10/01, no answer) - Partner Alex upated at bedside, questions answered
[2023-10-02 18:05] VITALS: BP 134/97; PULSE 118; RESP 28; TEMP 36.5; O2SAT 94; BMI 57.3
--- NOTE | 2023-10-02 18:49 | XR_ITS ---
Patient: LESLIE ROMERO Facility:?[facility] Patient ID:?[id number] Site Patient ID:?[id number]. Site :?[id number] Study:?XRay-Chest 1 VIEW PORTABLE-10/02/2023 7:38:38 PM Ordering Physician:PÉREZ Final Report: INDICATION: RAIES R BASE, TACHYCARDIA AND TACHYPNEA. TECHNIQUE: Chest 1 view. COMPARISON: May 10, 2023. FINDINGS: Cardiovascular and mediastinum: Cardiomediastinal silhouette is within normal limits. Lungs and pleural spaces: Low lung volumes. Basilar atelectasis. No evidence of pleural effusion. No pneumothorax identified. Bones and soft tissues: Unremarkable. IMPRESSION: No acute cardiopulmonary process identified. No significant interval change. Dictated by Colby Forte MD @ 10/02/2023 8:28:42 PM Signed by:?Colby Forte MD @10/02/2023 8:28:42 PM (Electronic Signature)
[2023-10-02 19:00] VITALS: BP 146/105; RESP 22; TEMP 36.6; O2SAT 94
[2023-10-02 19:01] VITALS: RESP 28; O2SAT 94
[2023-10-02 19:12] LABS: D Dimer Quantitative* 1.75 ug/ml (0.00-0.50)
[2023-10-02] MEDS: LIDOCAINE 5% PATCH 1 PATCH TRANSDERMA (21:47)
--- NOTE | 2023-10-02 22:44 | PC.NURSE ---
Shift note: Pt is resistance to care and treatment. Refused insertion of IV line and urine sample collection. Pt has been yelling and verbally abusive to staff. Pt refused to sleep in bed, prefers to sleep in the recliner.
[2023-10-02 23:45] VITALS: RESP 20; O2SAT 95
[2023-10-03] VITALS (8 sets, daily range): BP systolic 116–149; BP diastolic 62–93; PULSE 102–118; RESP 16–96; TEMP 36.6–36.9; O2SAT 3–99
[2023-10-03] MEDS: GABAPENTIN 300 MG CAPSULE PO ×2 (01:23→20:11)
[2023-10-03] MEDS: APIXABAN 5 MG TABLET PO ×3 (01:24→20:10)
[2023-10-03 06:26] LABS: Basophils Absolute Auto 0.06 K/uL (0.00-0.30); Basophils Percent Auto 0.9 % (0.0-3.0); Eosinophils Percent Auto 1.6 % (0.0-7.0); Hemoglobin* 10.1 gm/dL (12.0-16.0); Immature Granulocytes Abs Auto 0.02 K/uL (0.00-0.30); Immature Granulocytes Pct Auto 0.3 %; Lymphocytes Percent Auto 18.1 % (20-44); Mean Corpuscular HGB Conc 31 gm/dL (32-36); Mean Corpuscular Hemoglobin 28 pg (26-34); Mean Corpuscular Volume 92 fL (80-100); Monocytes Percent Auto 9.8 % (0.0-11.0); Neutrophils Absolute Auto 4.45 K/uL (1.7-7.0); Neutrophils Percent Auto 69.3 % (42.0-72.0); Platelet Count* 218 K/uL (140-440); RDW Coefficient of Variation % 12.9 % (11.5-15.5); Red Blood Count 3.59 m/uL (4.00-5.20); White Blood Count* 6.42 K/uL (4.50-11.00)
[2023-10-03 06:36] LABS: Slide Review Reflex No
[2023-10-03 06:47] LABS: Chloride* 106 mmol/L (96-114); Sodium* 139 mmol/L (135-149)
[2023-10-03 06:48] LABS: Potassium* 4.4 mmol/L (3.6-5.1)
[2023-10-03 06:50] LABS: Creatinine* 1.3 mg/dL (0.5-1.5); Est. Creatinine Clearance* 31.25; Estimated Glomerular Filt Rate 45 ml/min
[2023-10-03 06:51] LABS: Anion Gap 7 mEq/L (7-15); Blood Urea Nitrogen* 30 mg/dL (7-30); Calcium* 9.6 mg/dL (8.4-10.6); Carbon Dioxide* 26 mmol/L (20-32); Glucose* 108 mg/dL (60-115)
[2023-10-03] MEDS: ACETAMINOPHEN 325 MG TABLET 975 MG PO ×3 (06:51→18:49)
--- NOTE | 2023-10-03 07:43 | PC.NURSE ---
Pt is alert and oriented x3. Pt refused IV, vital signs,?assessment, medications (apixaban and daptomycin) stating ?I?m so tired, just let me sleep, they never had to do that before when I came here? This resume writer provided education on the benefits of taking medications, vital signs, and assessments and hospital environment. Buyer [employer] provided education to pt on possibility of pulmonary embolism?and its signs and symptoms and Apixaban's benefits for pulmonary embolisms. MD Ventura had also talked with pt prior during admission about possibility of a pulmonary embolism based on her symptoms?and why she was prescribing apixaban, pt originally agreed to take medication but refused for previous RN Luiz shift ([id number]), and refused again with this RN. Pt states ?I said no, I going to sleep, get out.??MD Ventura updated.?This resume writer approached pt again later in shift and pt agreed to take the apixaban but refused IV placement, antibiotics, and blood pressure being taken for vs. Pt reported 8/10 pain in back and left knee, attempt to manage pain with repositioning, gabapentin and PRN Tylenol Pt was moved from recliner to wheelchair per pt request and pt stayed in wheelchair for 20-30 mins before wanting to go back to recliner, pt did not tolerate transferring well, pt was A2 with walker and gait belt with transfer from recliner to chair but requested Ez stand for transfer from wheelchair back to recliner, pt did not tolerate Ez stand well either. Pt requested the safety belt be loose and for her legs not to touch the leg board. Buyer Internship explained safety belt and leg board were there for safety and to assist her in standing up. When standing up both on her own or with Ez stand. pt shouts, yells for staff to go faster and states ?Hurry up your hurting me, it hurts. Come on!? ?Pt slept intermittently throughout night. ??
[2023-10-03] MEDS: FERROUS SULFATE 325 MG TABLET PO (09:32)
[2023-10-03] MEDS: NYSTATIN POWDER 1 APPLIC TOPICAL ×2 (09:34→23:59)
--- NOTE | 2023-10-03 10:04 | XR_ITS ---
Patient: LESLIE ROMERO Facility:?[facility] Patient ID:?[id number] Site Patient ID:?[id number]. Site :?[id number] Study:?XRay-Knee Left 2V-10/03/2023 11:15:48 AM Ordering Physician:PÉREZ Final Report: INDICATION: Left knee pain. FINDINGS: Two views left knee were obtained. The bones are osteopenic. There are degenerative changes with marked medial joint space compartment narrowing. There is no acute fracture or dislocation. IMPRESSION: No acute bone abnormality. Dictated by Du Oreilly MD @ 10/03/2023 11:30:41 AM Signed by:?Du Oreilly MD @10/03/2023 11:30:41 AM (Electronic Signature)
[2023-10-03] MEDS: LIDOCAINE 5% PATCH 1 PATCH TRANSDERMA (11:52)
--- NOTE | 2023-10-03 12:11 | PM.IMPN1 ---
Progress Note: A&P Assessment and plan (1) Cellulitis: Problem details: - posterior RLE - wound and blood cultures pending, reassuring lactate - initial thought was to start daptomycin. This morning, no overt evidence of cellulitis, afebrile, WBC remains unremarkable, cultures pending. Patient refused further IV attempts. Suggest deferring antibiotics at this time, continue to monitor for new or worsening symptoms. Status: Acute (2) Chronic acquired lymphedema: Problem details: Chronic. Scabbed wound right lower extremity, wound left lower extremity with Mepilex, weeping Bilateral lower extremity wraps, elevation Continue Lasix Outpatient lymphedema clinic Status: Chronic (3) Tachycardia: Problem details: - ddx: anxiety, early withdrawal from Belbuca, infection, PE - elevated d-dimer; patient unwilling to get CTPE study. High risk for thrombosis given immobility and comorbidities - atelectasis on CXR, no evidence of acute infectious process; will start IS Risks/benefits reiterated Continue Eliquis for ppx Consider PE study when patient has back pain better controlled - although she remarks her back pain is better than it has been in a long time, she remains rather uncooperative Refuses to lie in position for echocardiogram. Recommend outpatient study Status: Acute (4) CKD (chronic kidney disease), stage III: Problem details: - baseline creatinine 0.8-1.2 Avoid nephrotoxic medications, continue to monitor Status: Chronic (5) Chronic, continuous use of opioids: Problem details: - had been tapering her Morphine prior to SNF stay in May 2023 - unable to obtain medication list from [facility] - at SNF, transitioned to Buprenorphine (Belbuca) 150mcg film BID - we will hold opiates at this time, ask pharmacy for assistance with her Belbuca dosing Belbuca not available in this facility, patient does not have her own supply as she left the [facility] AMA, requires mandated prescribers. After discussion with pharmacy, there is no simple conversion from Belbuca to Suboxone. May need to reach out on Wednesday to her pain clinic or her prescriber in order to have a supply picked up and brought here. NONNARCOTIC PAIN MANAGEMENT Tylenol scheduled, lidocaine patch low back, left leg, Vistaril p.r.n., Mike-Alvarado, ice/heat prn Awaiting medication record from [facility] Status: Acute (6) Morbid obesity: Problem details: - chronic with BMI 57 - weight on discharge in 06/05 was 111.7kg; 137 on admission 10/02/23 - will continue daily Lasix, monitor daily weights and Strict Is/Os - Nutrition consult Status: Chronic (7) Debility: Problem details: - acute on chronic, worsening weakness, weight gain - therapies ordered Status: Acute (8) Low back pain: Problem details: - no red flag symptoms - refused CT in ED NON NARCOTIC MANAGEMENT Status: Acute (9) Iron deficiency 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: Problem details: - typical baseline 8.5-9.0 - will add oral iron (+ senna if constipating) Monitor Status: Chronic (10) Medically noncompliant: Problem details: - left SNF AMA prior to returning to physical baseline, unclear if she fully understood her abilities as she is still unable to perform ADLs independently - history of refusing recommended medications, procedures, treatments This morning thinks she can return home where a niece would take care of her despite her debilities Status: Acute (11) Left knee pain: Problem details: Told me this occurred during movement in the hospital, told therapy it occurred prior to coming to the hospital Plain film left knee shows no acute bone abnormality NONNARCOTIC PAIN MANAGEMENT Status: Acute Plan member services representative for discharge planning/placement Patient reports the [facility] in [place] is evaluating her currently Time Spent With Patient Total time spent: Total time spent caring for the patient today was 75 minutes. This includes time spent for the visit reviewing the chart, time spent during the visit, time spent after the visit and documentation and planning in coordination of care. Subjective Date Seen: 10/03/23 Interval history: Patient is seen with nursing staff at bedside this morning. Has been yelling out with any sort of assisted movement. Is a fall risk. Refusing Peg lift. Requesting to use EZ stand for cares, declaring she is not a fall risk. I promise I will not fall she says. This morning, patient tells me her left knee hurts because she hurt it here in the hospital. She tells me while she was being assisted in moving back in her chair, her leg twisted. She did not fall. She tells me she did not break it but is demanding an x-ray. Staff has been in contact with [facility], the long-term care facility from which she left [facility], in order to obtain her medication record however they have not been cooperative in getting us this information or returning phone calls. Patient was scheduled for an echocardiogram this morning, however refused to lie in bed in the position necessary to appropriately complete this. After further discussion with her, she will follow-up in an outpatient setting in order to complete this study. It is reported she also refused a CT studies last night in the ED last night to further evaluate for PE or her complaint of back pain. She tells me again however this morning she needs to know why her back hurts. Exam Narrative: Exam Narrative: PHYSICAL EXAM General: Incredibly anxious, interruptive, demanding HEENT: Normocephalic, atraumatic, sclera white, EOMI, oral mucosa moist Cardiovascular: RRR, S1S2. Significant lower extremity lymphedema Pulmonary: Diminished. Mildly dyspneic on room air Neurological: Alert, cranial nerves intact, no focal findings Extremities: No gross joint deformity or swelling. AROMI. Neurovascularly intact Skin: Erythema with mild excoriation of the pannus, right lower extremity with scabbed wound, left lower extremity with wound, Mepilex in place Const: Vital Signs, click to edit/add: Vital Signs - 24 hr 10/02/23 14:15 10/02/23 18:05 10/02/23 19:00 Temperature 97.3 F L 97.7 F 98 F Pulse Rate [Pulse Oximeter] 119 H 118 H Respiratory Rate 26 H 28 H 22 Blood Pressure [Le ft Arm] 134/97 H 146/105 H Blood Pressure [Le ft Foreamr] Blood Pressure [Ri ght Forearm] 142/126 H Pulse Oximetry 97 94 94 Oxygen Delivery Me thod Room Air Room Air Room Air 10/02/23 19:01 10/02/23 23:45 10/03/23 00:10 Temperature Pulse Rate [Pulse Oximeter] 108 H Respiratory Rate 28 H 20 20 Blood Pressure [Le ft Arm] Blood Pressure [Le ft Foreamr] Blood Pressure [Ri ght Forearm] Pulse Oximetry 94 95 Oxygen Delivery Me thod Room Air Room Air 10/03/23 01:37 10/03/23 03:00 10/03/23 09:33 Temperature 97.9 F Pulse Rate [Pulse Oximeter] 108 H 106 H Respiratory Rate 20 20 16 Blood Pressure [Le ft Arm] Blood Pressure [Le ft Foreamr] 135/85 Blood Pressure [Ri ght Forearm] Pulse Oximetry 95 96 Oxygen Delivery Me thod Room Air Room Air 10/03/23 09:33 10/03/23 09:33 Temperature Pulse Rate [Pulse Oximeter] 106 H Respiratory Rate 96 H 16 Blood Pressure [Le ft Arm] Blood Pressure [Le ft Foreamr] Blood Pressure [Ri ght Forearm] Pulse Oximetry 96 Oxygen Delivery Me thod Room Air Labs Labs: Laboratory Results - last 24 hr 10/02/23 10/02/23 10/03/23 15:15 15:15 05:58 WBC 7.01 6.42 RBC 4.13 3.59 L Hgb 11.6 L 10.1 L Hct 37.4 33.0 MCV 91 92 MCH 28 28 MCHC 31 L 31 L RDW Coeff of Vilma 12.8 12.9 Plt Count 270 218 Neut % (Auto) 64.2 69.3 Lymph % (Auto) 22.7 18.1 L Franklin % (Auto) 9.3 9.8 Eos % (Auto) 2.0 1.6 Baso % (Auto) 0.9 0.9 Neut # (Auto) 4.51 4.45 Lymph # (Auto) 1.59 1.20 Franklin # (Auto) 0.70 0.60 Eos # (Auto) 0.14 0.10 Baso # (Auto) 0.06 0.06 Abs Immat Gran (auto) 0.06 0.02 Imm/Tot Granulo (auto) 0.9 0.3 D-Dimer Quant (PE/DVT) 1.75 H Sodium 141 139 Potassium 4.3 4.4 Chloride 105 106 Carbon Dioxide 24 26 Anion Gap 12 7 BUN 25 30 Creatinine 1.3 1.3 Estimated Creat Clear 31.25 Estimated GFR 45 45 Glucose 109 108 Lactate 1.7 1.0 Calcium 10.1 9.6 Magnesium 2.0 C-Reactive Protein 2.3 H TSH 3.460 Lab Acknowledgement Test Added Test Added
--- NOTE | 2023-10-03 14:37 | PC.NURSE ---
Attempted to call [facility] per MD request in attempt to obtain patient's med list, wound care instructions and mobility information. Message was left with Enedina at answering service who stated that she would pass my information along to the appropriate person. This nurse did request a call back today.
[2023-10-03] MEDS: MENTHOL 57 GM GEL 1 APPLIC TOPICAL (14:39)
--- NOTE | 2023-10-03 15:28 | PC.NURSE ---
marine underwriter called [facility] at 0815 to request information regarding pt including medication list and wound care instructions. Batter Depositor was told by staff the person she needed to speak with was not available and they would take a message. Batter Depositor again called [facility] at 1230 and requested med list information, wound care instructions, and PT documentation/status. Batter Depositor was told by staff that the person she needed to speak with was not available and they would take a message. Batter Depositor left her first and last name as well as the Hospital name and unit with the M/S direct phone number. No response from [facility] at this time.
[2023-10-03] MEDS: hydrOXYzine pamoate 25 MG CAPSULE 50 MG PO (16:16)
--- NOTE | 2023-10-03 18:09 | PC.NURSE ---
End of Shift: Patient is rude, uncooperative with many cares, and extremely demanding and anxious. Patient is vitally stable, lungs clear, BS WNL, NO IV. Patient tolerating regular diet, incontinent of urine and bowel, having 1 BM today. There was an attempt to get patient to bed for ECHO. Patient got to bed 2-3 assist with EZ-stand, but then refused to lay for ECHO as she reported she could not withstand laying for 30 min, patient was then returned to chair. Patient has spend majority of day in chair but is now in bed laying on her side, to get this patient in bed it is a lengthy process. Patient yells, screams, complains with any small movement. When getting patient comfortable in bed patient yelled at RN are you blind, move the pillows!. Patient will constantly yell stop with everything when patient is the one who asks to be moved. Patient has 'my way or the highway mentality', at times there is no reasoning with her. Wounds were cleaned and dressed. Duncan bandages were applied for a good amount of time until the patient requested to have them removed. Bengay was applied to knees for pain, lotion applied to legs to itchiness, and body fold were cleaned today.
[2023-10-04] MEDS: ACETAMINOPHEN 325 MG TABLET 975 MG PO ×4 (00:24→18:51)
[2023-10-04 05:00] VITALS: BP 125/97; PULSE 103; RESP 26; TEMP 36.1; O2SAT 90
--- NOTE | 2023-10-04 06:53 | PC.NURSE ---
END OF SHIFT NOTE: PT A&O. DENIES CP, SOB, N/V. EZ STAND WITH A2-3. VSS ON RA; AFEBRILE. PT WILL PUT CALL LIGHT ON AND BEFORE STAFF CAN ANSWER, PT WILL YELL AND SHOUT UNTIL STAFF IS IN THE ROOM. STAFF HAS SPOKEN TO PT SEVERAL TIMES ABOUT BEHAVIORS. PT COMPLAINS OF 10/10 LEFT KNEE AND LOWER BACK PAIN WITH LITTLE RELIEF WITH TYLENOL ADMINISTRATION. OUTLINED REDNESS TO LEFT GROIN/PANNUS UNCHANGED. CALL LIGHT WITHIN PT?S REACH.?
[2023-10-04 07:00] VITALS: BP 120/91; PULSE 98; RESP 22; TEMP 36.3; O2SAT 97
[2023-10-04] MEDS: APIXABAN 5 MG TABLET PO ×2 (08:39→21:17)
[2023-10-04] MEDS: NYSTATIN POWDER 1 APPLIC TOPICAL ×2 (08:39→21:17)
[2023-10-04] MEDS: POTASSIUM CHLORIDE 10 MEQ CAPSULE ER PO (08:39)
[2023-10-04] MEDS: FUROSEMIDE 20 MG TABLET PO (08:39)
[2023-10-04] MEDS: CITALOPRAM HYDROBROMIDE 20 MG TABLET PO (08:39)
[2023-10-04] MEDS: FERROUS SULFATE 325 MG TABLET PO (08:39)
--- NOTE | 2023-10-04 08:49 | PC.NURSE ---
Went to patient room because she called. When I was in there she was yelling that the chair was digging in her legs but when I looked nothing was touching her legs so she told me to put her feet up, so I put her feet up. Then she started yelling that it was up to much and I need to put her feet down, so I put her feet down. Then she wanted me to put her feet up on the stools that where in there from therapy so I did that. After I did that she told me she wants her feet off and that it feels better that way. This went on for another 5-10 mins of feet up and feet down. Then she wanted me to put pillows behind her because she wanted to sit up more because she cannot scoot back in her chair and wants me to pull her back which is impossible because of her weight.
--- NOTE | 2023-10-04 09:56 | P.IMPN_ITS ---
Progress Note: A&P Assessment and plan (1) Cellulitis: Problem details: - possible posterior RLE, although clinically seems more likely inflammation due to lymphedema - wound and blood cultures pending, reassuring lactate - initial thought was to start daptomycin. No overt evidence of cellulitis, afebrile, WBC remains unremarkable, cultures negative to date. Patient refused further IV attempts. Continue to monitor for new or worsening symptoms. Not receiving antibiotics at this time. Status: Acute (2) Chronic acquired lymphedema: Problem details: Chronic. Scabbed wound right lower extremity, wound left lower extremity with Mepilex, weeping Bilateral lower extremity wraps, elevation Continue Lasix Outpatient lymphedema clinic Status: Chronic (3) Tachycardia: Problem details: - ddx: anxiety, early withdrawal from Belbuca, infection, PE - not cardiopulmonary changes to suggest an active PE at this time. - elevated d-dimer; patient unwilling to get CTPE study. High risk for thrombosis given immobility and comorbidities - atelectasis on CXR, no evidence of acute infectious process; will start IS Risks/benefits reiterated Continue Eliquis for ppx Consider PE study if her condition changes and warrants Refuses to lie in position for echocardiogram. Recommend outpatient study Status: Acute (4) CKD (chronic kidney disease), stage III: Problem details: - baseline creatinine 0.8-1.2 Avoid nephrotoxic medications, continue to monitor Status: Chronic (5) Chronic, continuous use of opioids: Problem details: - had been tapering her Morphine prior to SNF stay in May 2023 - unable to obtain medication list from [facility] - at SNF, transitioned to Buprenorphine (Belbuca) 150mcg film BID - we will hold opiates at this time, ask pharmacy for assistance with her Belbuca dosing Belbuca not available in this facility, patient does not have her own supply as she left the [facility] AMA, requires mandated prescribers. After discussion with pharmacy, there is no simple conversion from Belbuca to Suboxone. May need to reach out on Wednesday to her pain clinic or her prescriber in order to have a supply picked up and brought here. NONNARCOTIC PAIN MANAGEMENT Tylenol scheduled, lidocaine patch low back, left leg, Vistaril p.r.n., Mike-Alvarado, ice/heat prn Awaiting medication record from [facility] Status: Acute (6) Morbid obesity: Problem details: - chronic with BMI 57 - weight on discharge in 06/05 was 111.7kg; 137 on admission 10/02/23 - will continue daily Lasix, monitor daily weights and Strict Is/Os - Nutrition consult Status: Chronic (7) Debility: Problem details: - acute on chronic, worsening weakness, weight gain - therapies ordered Status: Acute (8) Low back pain: Problem details: - no red flag symptoms - refused CT in ED - although she remarks her back pain is better than it has been in a long time, she remains rather uncooperative NON NARCOTIC MANAGEMENT Status: Acute (9) Iron deficiency 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: Problem details: - typical baseline 8.5-9.0 - will add oral iron (+ senna if constipating) Monitor Status: Chronic (10) Medically noncompliant: Problem details: - left SNF AMA prior to returning to physical baseline, unclear if she fully understood her abilities as she is still unable to perform ADLs independently - history of refusing recommended medications, procedures, treatments Now willing to consider SNF placement for long-term cares... Status: Acute (11) Left knee pain: Problem details: Told me this occurred during movement in the hospital, told therapy it occurred prior to coming to the hospital Plain film left knee shows no acute bone abnormality NONNARCOTIC PAIN MANAGEMENT Status: Acute (12) Seborrheic dermatitis: Problem details: - ketoconazole 2% cream mixed with equal parts of triamcinolone 0.1% cream applied topically to affected areas twice daily Status: Acute Plan 1. Reviewed with patient 2. Continue with general supportive cares 3. Work with staff to try to obtain medical records report from [facility] 4. marketing services coordinator making efforts to find SNF that might accept patient for long-term care 5. Reminded patient that she needs to do her part and we will do our part to help her 6. She is agreeable with above stated plans and recommendations Time Spent With Patient Total time spent: 35 minutes Subjective Date Seen: 10/04/23 Interval history: Hospital day 3. Patient continues to have complaint of various aches and pains. She notes she is able to move a little more today than she was able to yesterday. Acknowledges she needs help in her home beyond what is feasible given her limited resources and limited support from family and friends. She requests if at all possible that we continue with efforts to try to help with placement at the prison facility other than the [facility] which she just left AMA from, the [facility], and preferably continue to try to work with the [facility] [place]. Notes rash in both corners of her mouth that is itchy and dry and flaky. Has tried emollient to without improvement. We still have not received any records at all from [facility]. Exam Narrative: Exam Narrative: Examined patient in her hospital room. Initially she is sound asleep in her bed. I do not awaken her. I return when she is awake and sitting in the recliner chair at her bedside, eating her breakfast with her feet on the floor. Appears comfortable and in no acute distress. Anxious, but not unusual for her. Vision and hearing are grossly normal. Alert and oriented to self, place, time, situation. Dry, flaky skin near corners of mouth bilaterally Lungs are clear to auscultation. Heart tones with regular rhythm. Abdomen is obese with active bowel sounds, soft. Moves all 4 extremities. Chronic erythema of lower extremities. Has bilateral lower extremity lymphedema. Const: Vital Signs, click to edit/add: Vital Signs - 24 hr 10/03/23 11:53 10/03/23 15:04 10/03/23 15:04 Temperature 98.0 F 97.9 F Pulse Rate [Pulse Oximeter] 118 H 111 H 111 H Respiratory Rate 34 H 24 24 Blood Pressure [Le ft Forearm] 131/93 H 149/79 H Blood Pressure [RI GHT FOREARM] Pulse Oximetry 99 95 Oxygen Delivery Me thod Room Air Room Air 10/03/23 15:04 10/03/23 20:05 10/03/23 20:05 Temperature 98.3 F Pulse Rate [Pulse Oximeter] 102 H 102 H Respiratory Rate 24 24 24 Blood Pressure [Le ft Forearm] Blood Pressure [RI GHT FOREARM] 142/62 H Pulse Oximetry 95 93 Oxygen Delivery Me thod Room Air Room Air 10/03/23 20:05 10/03/23 23:55 10/04/23 05:00 Temperature 98.5 F 97.0 F L Pulse Rate [Pulse Oximeter] 111 H 103 H Respiratory Rate 24 24 26 H Blood Pressure [Le ft Forearm] 125/97 H Blood Pressure [RI GHT FOREARM] 116/63 Pulse Oximetry 3 L 94 90 Oxygen Delivery Me thod Room Air Room Air Room Air
--- NOTE | 2023-10-04 10:33 | PC.SOCIAL ---
Addendum entered by DIANE Peacock 10/04/23 15:34: Discharge plan: Met with pt who states she left [facility] because she did not like the care there and she did not want to stay. She states she was working with staff to find another facility but they were not doing it quick enough so she left to come [place]isell to the hospital to be placed in a different facility. She is requesting placement at [facility] and states her previous facility had already sent information there to evaluate for admit. Called [facility] and am awaiting call back with update on assessment for admission to that facility. utility worker roller shop to follow up as needed. Original Note: Social work: Called [facility] social group worker, Nataliia, . Nataliia confirmed pt left AMA on Wednesday10/01/23 and was able to get into her car without staff assistance even though she was using a mechanical lift at their facility. Nataliia will fax requested records form pt's medical chart to the hospital as requested.
[2023-10-04 11:30] VITALS: BP 127/61; PULSE 98; RESP 24; TEMP 36.2; O2SAT 98
[2023-10-04] MEDS: TRIAMCINOLONE ACETONIDE CREAM 0.1 % 1 APPLIC TOPICAL ×2 (11:51→21:17)
[2023-10-04] MEDS: LIDOCAINE 5% PATCH 2 PATCH TRANSDERMA (12:28)
[2023-10-04 14:25] VITALS: BMI 57.2
[2023-10-04 15:00] VITALS: BP 136/59; PULSE 98; RESP 24; TEMP 36.5; O2SAT 98
--- NOTE | 2023-10-04 15:25 | PC.NURSE ---
[id number] Note: Patient A&OX3. Patient very anxious and calls out often and becomes verbally aggressive with staff while completing cares and repositioning. Patient is resistant with mobilizing and very dependent on staff to assist with all repositioning. No IV in place; pt refuses IV placement. Patient reports pain and receiving scheduled Tylenol and Lidocaine patches for pain management. Vitals WNL. Patient has significant redness to skin folds. Nystatin applied to skin folds and barrier cream applied to groin and buttocks. Patient completelely incontinent of bowel and bladder. Wound to L) calf cleansed with Vashe and new Mepilex applied. Medication applied to corners of lips per order. Wound to R) calf closed and open to air. Patient seen by PT/OT today. Patient has good appetite and eats 100% of all meals. Will continue to implement ongoing plan of care.
[2023-10-04] MEDS: MENTHOL 57 GM GEL 1 APPLIC TOPICAL (15:58)
[2023-10-04] MEDS: hydrOXYzine pamoate 25 MG CAPSULE 50 MG PO (20:10)
[2023-10-04] MEDS: DULOXETINE 30 MG CAPSULE DR PO (21:15)
[2023-10-04] MEDS: GABAPENTIN 300 MG CAPSULE PO (21:17)
[2023-10-04] MEDS: LORazepam 1 MG TABLET PO (21:41)
[2023-10-04 23:00] VITALS: BP 138/64; PULSE 90; RESP 24; TEMP 36.2; O2SAT 95
[2023-10-05] VITALS (7 sets, daily range): BP systolic 121–150; BP diastolic 65–86; PULSE 90–102; RESP 18–20; TEMP 36.5–36.8; O2SAT 92–96
[2023-10-05] MEDS: ACETAMINOPHEN 325 MG TABLET 975 MG PO ×3 (03:35→18:00)
[2023-10-05 06:17] LABS: Hemoglobin* 9.4 gm/dL (12.0-16.0)
--- NOTE | 2023-10-05 06:54 | PC.NURSE ---
19-07: pt frequently yells out for help, when staff attempts to help pt becomes agitated stating that the team is hurting her or not doing a certain intervention correctly. Pt is very particular, even the slightest assist with repositioning, cleaning pannus and/or other skin folds, wound care, as well as several other care interventions - pt yells out to stop and that the team is hurting her. Due to incontinence & further skin breakdown in po area, along with the resistance to cleaning up incontinence and dirty linens, it was decided with the team and patient that placement of a Covarrubias catheter would be beneficial. Pt was premedicated with 2mg Ativan prior to covarrubias cath placement, this was minimally effective in attempts to decrease anxiety. Covarrubias patent and draining concentrated urine. ? Left calf dressing CDI. Below pts left knee is raw with yeasty stench, expert medical writer was able to clean and apply nystatin. Reddened po area, small areas of skin breakdown in groin and vaginal folds, barrier cream and nystatin applied. ??
[2023-10-05] MEDS: APIXABAN 5 MG TABLET PO ×2 (08:47→20:05)
[2023-10-05] MEDS: POTASSIUM CHLORIDE 10 MEQ CAPSULE ER PO (08:47)
[2023-10-05] MEDS: FERROUS SULFATE 325 MG TABLET PO (08:47)
[2023-10-05] MEDS: FUROSEMIDE 20 MG TABLET PO (08:47)
--- NOTE | 2023-10-05 09:22 | PC.NURSE ---
on 10/04/23 the nurse transcription manager was in the patient room multiple times through out the day assisting in patient transfers, exchange of bed for patient comfort, and to address patient behaviors. Patient refuses to use safe patient handling and will yell at staff, or state they are doing something wrong when it is the correct form or therapy needed. The importance of the use of safe patient handling equipment explained and reinforced to the patient in regards to her and staff safety and preventing injuries. The patient refuses the teaching and states I will not accept this, also stating she will only move with the EZ stand as she had before. The EZ stand which had been evaluated by therapy and nursing was not advised to use at this time. Patient eventually was moved to the bed using the ceiling lift which was easier and safer for the patient and staff as opposed to the EZ stand. Patient will yell out immediately after pressing the call light despite staff informing her we are coming and seeking another livestock caretaker, as she requires multiple people to assist in her movement. I did advise her not to yell at staff and to be respectful when her care team are talking and caring for her. She continues to show intermittent inappropriate behaviors, screaming out, yelling at staff, and refusing safe patient handling equipment through the shift from 7 am to 4:30 pm. Patient cannot lift her own legs and refuses to use the EZ machine folder a safe way with her shins against the pad and safety straps secured. Her expectation is for staff to use physical lifting instead of the mechanical lift and air mattress in the room, this was explained and reinforced that this is unacceptable and will not occur x2 occurrences.
--- NOTE | 2023-10-05 11:15 | PC.NURSE ---
This morning at 1000 I sat by Gracia and had a conversation about about her behaviors of yelling out, belittling staff, making cultural and derogatory remarks around race. She has also refused some therapies and medical treatments recommended by the provider. Gracia was given a copy of the Patient Code of Conduct and it was read to her. She verbalized understanding and stated she would abide by it. I offered to create a care plan with her input. She offered a couple of things that would help her. The care plan was printed and hung in her room so she can see it and staff can see it. At the end of the conversation, it was discussed what next steps would be if her behavior continues with inappropriate verbal remarks. She verbalized understanding. Care plan includes: Gracia appreciates one person talking to her at time Limit number of people in the room when possible Gracia has agreed to participate in the following: ? physical and occupational therapy daily to help gain strength. ? social work and discharge planning to find a safe discharge plan. ? medical care plan so the number of things you refuse decreases. ? Allowing nursing staff to use the safe patient handling equipment recommended by therapy to keep you and the nursing staff safe.
[2023-10-05] MEDS: LIDOCAINE 5% PATCH 2 PATCH TRANSDERMA (12:00)
[2023-10-05] MEDS: NYSTATIN POWDER 1 APPLIC TOPICAL ×2 (12:01→20:05)
[2023-10-05] MEDS: TRIAMCINOLONE ACETONIDE CREAM 0.1 % 1 APPLIC TOPICAL ×2 (12:01→20:05)
--- NOTE | 2023-10-05 15:00 | PM.IMPN1 ---
Progress Note: A&P Assessment and plan (1) Cellulitis: Problem details: - possible posterior RLE, although clinically seems more likely inflammation due to lymphedema and incontinence associated dermatitis - wound culture grew out Gram-positive rods consistent with diphtheroids and minimal amount of Staph coagulase negative organisms. - blood cultures negative to date - initial thought was to start daptomycin. No overt evidence of cellulitis, afebrile, WBC remains unremarkable, cultures negative to date. Patient refused further IV attempts. Continue to monitor for new or worsening symptoms. Not receiving antibiotics at this time. Status: Acute (2) Chronic acquired lymphedema: Problem details: Chronic. Scabbed wound right lower extremity, wound left lower extremity with Mepilex, weeping Bilateral lower extremity wraps, elevation Continue Lasix Outpatient lymphedema clinic Status: Chronic (3) Tachycardia: Problem details: - ddx: anxiety, early withdrawal from Belbuca, infection, PE - not cardiopulmonary changes to suggest an active PE at this time. - elevated d-dimer; patient unwilling to get CTPE study. High risk for thrombosis given immobility and comorbidities - atelectasis on CXR, no evidence of acute infectious process; will start IS Risks/benefits reiterated Continue Eliquis for ppx Consider PE study if her condition changes and warrants Refuses to lie in position for echocardiogram. Recommend outpatient study Status: Acute (4) CKD (chronic kidney disease), stage III: Problem details: - baseline creatinine 0.8-1.2 Avoid nephrotoxic medications, continue to monitor Status: Chronic (5) Chronic, continuous use of opioids: Problem details: - had been tapering her Morphine prior to SNF stay in May 2023 - unable to obtain medication list from [facility] - at SNF, transitioned to Buprenorphine (Belbuca) 150mcg film BID - we will hold opiates at this time, ask pharmacy for assistance with her Belbuca dosing Belbuca not available in this facility, patient does not have her own supply as she left the [facility] AMA, requires mandated prescribers. After discussion with pharmacy, there is no simple conversion from Belbuca to Suboxone. May need to reach out on Wednesday to her pain clinic or her prescriber in order to have a supply picked up and brought here. NONNARCOTIC PAIN MANAGEMENT Tylenol scheduled, lidocaine patch low back, left leg, Vistaril p.r.n., Mike-Alvarado, ice/heat prn Awaiting medication record from [facility] Status: Acute (6) Morbid obesity: Problem details: - chronic with BMI 57 - weight on discharge in 06/05 was 111.7kg; 137 on admission 10/02/23 - will continue daily Lasix, monitor daily weights and Strict Is/Os - Nutrition consult Status: Chronic (7) Debility: Problem details: - acute on chronic, worsening weakness, weight gain - therapies ordered, but she often refuses Status: Acute (8) Low back pain: Problem details: - no red flag symptoms - refused CT in ED - although she remarks her back pain is better than it has been in a long time, she remains rather uncooperative NON NARCOTIC MANAGEMENT Status: Acute (9) Iron deficiency 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: Problem details: - typical baseline 8.5-9.0 - will add oral iron (+ senna if constipating) Monitor Status: Chronic (10) Medically noncompliant: Problem details: - left SNF AMA prior to returning to physical baseline, unclear if she fully understood her abilities as she is still unable to perform ADLs independently - history of refusing recommended medications, procedures, treatments - Now willing to consider SNF placement for long-term cares... Status: Acute (11) Left knee pain: Problem details: Told me this occurred during movement in the hospital, told therapy it occurred prior to coming to the hospital Plain film left knee shows no acute bone abnormality NONNARCOTIC PAIN MANAGEMENT Status: Acute (12) Seborrheic dermatitis: Problem details: - ketoconazole 2% cream mixed with equal parts of triamcinolone 0.1% cream applied topically to affected areas twice daily Status: Acute (13) Anemia: Problem details: - additional laboratory testing, including type and screen Status: Acute (14) Incontinence associated dermatitis: Problem details: - Gutierrez catheter for now, along with other incontinence associated dermatitis prevention precautions - continue to try to encourage patient to help herself Status: Acute Plan 1. Reviewed impression with patient 2. Stressed to patient that her behaviors are interfering with her ability to improve. Urged her to reconsider her behavior so as to obtain optimal cares and support. 3. Discussed her behaviors in the morning team conference and came up with plan for food services director to visit with patient directly to come up with and agreed upon plan. Should this be unsuccessful will need to raise it to awareness of hospital administration for possible additional dialogue, discussion, and direction. 4. Patient agreeable to above stated plans and recommendations. 5. Continue with efforts to try to achieve safe discharge disposition for her. Time Spent With Patient Total time spent: 45 minutes Subjective Date Seen: 10/05/23 Interval history: Hospital day 4. Patient has chronic complaint of various aches and pains. Has variable ability or desire to help with movement throughout the course of the day and night. Continues to acknowledge that she needs help in her home beyond what is feasible given her limited resources and limited support from family and friends. She requests if at all possible that we continue with efforts to try to help with placement at the long-term facility other than the 1 which she just left AMA from, the [facility]. Patient has had verbally aggressive tendencies when interacting with the staff. On the 1 hand she requests help. On the other hand when help is offered she finds fault with those to try to help her and although they try to listen to her and help her as she requests invariably she states she is not able to get the help that she wants and needs. Unfortunately at time she calls nursing staff and others various names, including racial slurs. She hollers and screams if she does not get exactly what she wants, how she wants, when she wants it. Refuses to engage in certain movements and activities including with therapist. Rash on the corner of her mouth is slowly improving. We received medical records from [facility]. Interestingly in these records and when speaking with the staff at the [place] directly, they indicate how they required a lift in order to transfer the patient. However on the date that the patient left their facility against medical advice, she was able to transfer into her waiting car. Additionally patient was able to walk in to her home on the date that she left the [place] against medical advice. Remarkably, here in the hospital she suddenly not able to carry out this type of movement and activity once again. Exam Narrative: Exam Narrative: Examined patient in her room. Before walk-in she appears comfortable and in no acute distress. After walk-in patient starts complaining of various aches and pains in asked me to help reposition her which I do slowly, gently, helping her lower her feet to the floor while she is sitting in the recliner chair at her bedside. She notes less aches and pains when her feet are in the dependent position as opposed to being extended in front of her. Anxious and angry disposition. Lungs are clear to auscultation. Heart tones with regular rhythm. Abdomen is obese with active bowel sounds, soft, nontender. Has urethral catheter in place now, given that yesterday she was unwilling to assist with elimination and was requiring frequent change of bed linen to keep her dry. Erythematous skin in perineum and thighs previously seeing is in great measure resolved. Generalize weakness particularly lower extremities. Const: Vital Signs, click to edit/add: Vital Signs - 24 hr 10/04/23 23:00 10/04/23 23:00 10/04/23 23:00 Temperature 97.2 F L Pulse Rate [Pulse Oximeter] 90 Respiratory Rate 24 24 24 Blood Pressure [RI GHT FOREARM] 138/64 Pulse Oximetry 95 95 Oxygen Delivery Me thod Room Air Room Air 10/05/23 03:00 10/05/23 08:41 10/05/23 08:41 Temperature 97.7 F Pulse Rate [Pulse Oximeter] 102 H Respiratory Rate 20 20 20 Blood Pressure [RI GHT FOREARM] 141/85 H Pulse Oximetry 93 93 Oxygen Delivery Me thod Room Air Room Air 10/05/23 12:07 Temperature 98.0 F Pulse Rate [Pulse Oximeter] 97 Respiratory Rate 18 Blood Pressure [RI GHT FOREARM] 127/65 Pulse Oximetry 96 Oxygen Delivery Me thod Room Air Labs Labs: Laboratory Results - last 24 hr 10/05/23 06:02 Hgb 9.4 L
--- NOTE | 2023-10-05 16:13 | PC.SOCIAL ---
Discharge planning: Pt continued to state that she wants to go to a halfway nearby for care and that she intends to participate in her care and rehab as her goal is to get stronger and not to need the david lift anymore. Contacted to the following facilities with the listed results: 1. [facility] - declined admission due to her non -compliance with nursing and therapy at the previous SNF. 2. [facility] - declined due to weight being above limit for facility. 3. [facility] - faxed information and awaiting call back with decision. 4. [facility] - faxed information and awaiting call back with decision on admit. 5. [facility] - faxed information and awaiting call back with decision on admit. 6. [facility] - faxed information and awaiting call back with decision on admit. 7. [facility] - faxed information and awaiting call back with decision on admit. 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
[2023-10-05] MEDS: MENTHOL 57 GM GEL 1 APPLIC TOPICAL (16:34)
--- NOTE | 2023-10-05 19:02 | PC.NURSE ---
At approximately 0715 pt. independently attempted to sit at edge of bed and was found to be lying supine with upper body on bed and lower body dangling off the side of the bed. Pt. yelling and cursing at staff to help her. Pt.?adamantly refused for staff to use ceiling lift and/or Peg lift to either get her properly back into bed or up into the chair. With reinforcement from multiple staff members pt. reluctantly complied with use of Peg lift to transfer to the chair. Pt. was seen by Director of Inpatient Services at approximately 1000 and agreed to abide by the code of conduct and participate in a care plan that she (the patient) helped develop. At approximately 1320 pt. was seen by PT and OT. Pt.?resistive to participate in recommended therapy. This magazine writer?reminded pt. of?her care plan, to which pt. replied ?Have you ever said you would do something, thought about it later and then decided you don?t want to do that? I changed my mind!? Pt. then asked therapists to ?get her out of here?, referring to this magazine writer. Pt. was seen by Chief Nurse Executive at approximately 1500. Since Chief Nurse Executive left pt?s room pt. has refrained from further verbal aggression or non-compliance with assessments/cares, although pt. has been passive and has kept her verbal interactions to a minimum.
[2023-10-05] MEDS: GABAPENTIN 300 MG CAPSULE PO (20:05)
[2023-10-05] MEDS: DULOXETINE 30 MG CAPSULE DR PO (20:06)
[2023-10-06] VITALS (9 sets, daily range): BP systolic 104–161; BP diastolic 55–84; PULSE 79–98; RESP 18–22; TEMP 36.3–36.6; O2SAT 92–96
[2023-10-06] MEDS: ACETAMINOPHEN 325 MG TABLET 975 MG PO ×3 (00:04→18:39)
[2023-10-06] MEDS: hydrOXYzine pamoate 25 MG CAPSULE 50 MG PO ×3 (04:32→16:54)
[2023-10-06] MEDS: MENTHOL 57 GM GEL 1 APPLIC TOPICAL ×4 (04:38→19:57)
--- NOTE | 2023-10-06 06:20 | PC.NURSE ---
End of shift report [id number]: Patient slept throughout most of this shift, wakes to verbal stimuli. At 0430 patient placed call light on and reporting increased left knee pain, PRN hydroxyzine administered and PRN BenGay applied. Patient asleep by 0515 and slept the remainder of the shift. Patient pleasant with assembly instructions writer during interaction. Gutierrez catheter patent, draining dark eleanor colored urine. O2 spot check while patient sleeping, O2 remained >93% on room air throughout the night. Restful vitals completed per MD order. Patient declined repositioning.
[2023-10-06 06:23] LABS: Hemoglobin* 8.6 gm/dL (12.0-16.0)
[2023-10-06 06:48] LABS: Chloride* 107 mmol/L (96-114); Sodium* 142 mmol/L (135-149)
[2023-10-06 06:51] LABS: Anion Gap 6 mEq/L (7-15); Blood Urea Nitrogen* 25 mg/dL (7-30); Carbon Dioxide* 29 mmol/L (20-32); Est. Creatinine Clearance* 40.63; Estimated Glomerular Filt Rate 61 ml/min; Glucose* 92 mg/dL (60-115)
[2023-10-06] MEDS: FERROUS SULFATE 325 MG TABLET PO (09:02)
[2023-10-06] MEDS: FUROSEMIDE 20 MG TABLET PO (09:02)
[2023-10-06] MEDS: APIXABAN 5 MG TABLET PO ×2 (09:02→20:55)
[2023-10-06] MEDS: TRIAMCINOLONE ACETONIDE CREAM 0.1 % 1 APPLIC TOPICAL ×2 (09:03→20:58)
[2023-10-06] MEDS: POTASSIUM CHLORIDE 10 MEQ CAPSULE ER PO (09:03)
[2023-10-06] MEDS: NYSTATIN POWDER 1 APPLIC TOPICAL ×2 (09:05→21:00)
--- NOTE | 2023-10-06 10:59 | PC.SOCIAL ---
Discharge planning: Received call from [facility] Case management department informing social work that pt has an assigned director of casework Johana Perez [phone] who is available to assist with discharge planning. hall worker to reach out to this director of casework for assistance in placing pt in a termite technician care snf bed.
[2023-10-06] MEDS: LIDOCAINE 5% PATCH 2 PATCH TRANSDERMA (11:49)
--- NOTE | 2023-10-06 14:30 | PM.IMPN1 ---
Progress Note: A&P Assessment and plan (1) Cellulitis: Problem details: - possible posterior RLE, although clinically seems more likely inflammation due to lymphedema and incontinence associated dermatitis - wound culture grew out Gram-positive rods consistent with diphtheroids and minimal amount of Staph coagulase negative organisms. - blood cultures negative to date - initial thought was to start daptomycin. No overt evidence of cellulitis, afebrile, WBC remains unremarkable, cultures negative to date. Patient refused further IV attempts. Continue to monitor for new or worsening symptoms. Not receiving antibiotics at this time. Unlikely that she has a cellulitis or had a cellulitis when she presented. More likely related to the inflammation associated with her chronic bilateral lower extremity lymphedema and incontinence associated dermatitis. Status: Acute (2) Chronic acquired lymphedema: Problem details: Chronic. Scabbed wound right lower extremity, wound left lower extremity with Mepilex, weeping Bilateral lower extremity wraps, elevation Continue Lasix Outpatient lymphedema clinic Status: Chronic (3) Tachycardia: Problem details: - ddx: anxiety, early withdrawal from Belbuca, infection, PE - not cardiopulmonary changes to suggest an active PE at this time. - elevated d-dimer; patient unwilling to get CTPE study. High risk for thrombosis given immobility and comorbidities - atelectasis on CXR, no evidence of acute infectious process; will start IS Risks/benefits reiterated Continue Eliquis for ppx Consider PE study if her condition changes and warrants Refuses to lie in position for echocardiogram. Recommend outpatient study Status: Acute (4) CKD (chronic kidney disease), stage III: Problem details: - baseline creatinine 0.8-1.2 Avoid nephrotoxic medications, continue to monitor Status: Chronic (5) Chronic, continuous use of opioids: Problem details: - had been tapering her Morphine prior to SNF stay in May 2023 - unable to obtain medication list from [facility] - at SNF, transitioned to Buprenorphine (Belbuca) 150mcg film BID - we will hold opiates at this time, ask pharmacy for assistance with her Belbuca dosing Belbuca not available in this facility, patient does not have her own supply as she left the [facility] AMA, requires mandated prescribers. After discussion with pharmacy, there is no simple conversion from Belbuca to Suboxone. NONNARCOTIC PAIN MANAGEMENT Tylenol scheduled, lidocaine patch low back, left leg, Vistaril p.r.n., Mike-Alvarado, ice/heat prn Awaiting medication record from [facility] Status: Acute (6) Morbid obesity: Problem details: - chronic with BMI 58 - weight on discharge in 06/05 was 111.7kg; 137 on admission 10/02/23 - will increase daily dose of furosemide, continue to monitor daily weights and Strict Is/Os - Nutrition consult Status: Chronic (7) Debility: Problem details: - acute on chronic, worsening weakness, weight gain - therapies ordered, but she often refuses - I will discuss with physical therapy again on 10/07/2023 regarding reassessment for transfers Status: Acute (8) Low back pain: Problem details: - no red flag symptoms - refused CT in ED - although she remarks her back pain is better than it has been in a long time, she remains rather uncooperative NON NARCOTIC MANAGEMENT Status: Acute (9) Iron deficiency 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: Problem details: - typical baseline 8.5-9.0 - will add oral iron (+ senna if constipating) Monitor Status: Chronic (10) Medically noncompliant: Problem details: - left SNF AMA prior to returning to physical baseline, unclear if she fully understood her abilities as she is still unable to perform ADLs independently - history of refusing recommended medications, procedures, treatments - Now willing to consider SNF placement for long-term cares... Status: Acute (11) Left knee pain: Problem details: Told some individuals this occurred during movement in the hospital, told others that it occurred prior to coming to the hospital Plain film left knee shows no acute bone abnormality NONNARCOTIC PAIN MANAGEMENT Given the persisting complaint of left knee pain, I will ask Orthopedic surgery to consult and recommend Status: Acute (12) Seborrheic dermatitis: Problem details: - ketoconazole 2% cream mixed with equal parts of triamcinolone 0.1% cream applied topically to affected areas twice daily Status: Acute (13) Anemia: Problem details: - additional laboratory testing, including type and screen Status: Acute (14) Incontinence associated dermatitis: Problem details: - Gutierrez catheter for now, along with other incontinence associated dermatitis prevention precautions - continue to try to encourage patient to help herself Status: Acute Plan 1. No need for patient to be in an acute hospital inpatient setting except for we do not have a safe discharge disposition plan at this time 2. Continue to work with social work assistant to try to establish a safe discharge disposition plan to an appropriate retirement facility willing to accept her and try to help her with all of her various, complex needs. 3. Patient agreeable to above stated plans and recommendations. Time Spent With Patient Total time spent: 50 minutes Subjective Date Seen: 10/06/23 Interval history: Hospital day 5. Patient continues to have various aches and pains. Notes pain in left popliteal fossa at this moment. On examining she does have a small superficial fissure there. Does have chronic bilateral lower extremity lymphedema. Also notes left knee pain. She has recounted 2 different stories in regard to how she acquired the knee pain. One of the stories she told me was that she had the pain before she arrived at the hospital, from movements that she was allegedly forced to undertake while she was at the [facility]. The other story she told me is that she was forced to move in a certain way after arrival at the hospital. An x-ray of the left knee was done on 10/03/2023 here at the [facility] and demonstrated no obvious bony abnormalities. She expresses pain with merely touching the skin around the knee, making examination difficult. Her behaviors are less demeaning and verbally aggressive than yesterday. Numerous individuals from the hospital staff spoke with her yesterday about her behaviors. She claims she is trying to be more patient with others and realizes that her suffering is difficult for her to indoor. She expresses desire to treat others respectfully as she demands to be treated and would want to be treated. Exam Narrative: Exam Narrative: I examine her 1st when she is in her bed this morning. Secondly, I examine her when she is sitting on the recliner chair beside her bed, this afternoon. In great measure appears comfortable when laying still. Grimaces and winces when she moves. Vision and hearing are grossly normal. Alert and oriented to self, place, time. Lungs are clear to auscultation. Heart tones with regular rhythm. Abdomen is obese with active bowel sounds, soft. Bilateral lower extremity lymphedema. Small fissure left popliteal fossa, superficial. Complains of pain when nearly touching the skin around her left knee. I do not carry out an exam of the knee beyond this. Does have a fair amount of ecchymosis in that area. No focal motor neurologic deficits. Does have generalized bilateral lower extremity weakness. Discuss the patient's ability to transfer and support transfer efforts with physical and occupational therapy today as well as the nursing staff. They all unanimously indicate that it seems like the patient has the strength and ability to transfer but her behaviors make it much too difficult and dangerous for everyone involved - rather than working with the staff to transfer safely, she demands that they help her transfer the way she wants which is dangerous for herself and the staff trying to help her. Const: Vital Signs, click to edit/add: Vital Signs - 24 hr 10/05/23 16:00 10/05/23 16:00 10/05/23 20:00 Temperature 98.2 F 98.2 F Pulse Rate [Pulse Oximeter] 90 100 Respiratory Rate 20 20 Blood Pressure [RI GHT FOREARM] 150/76 H 121/86 Pulse Oximetry 96 96 92 Oxygen Delivery Me thod Room Air Room Air Room Air 10/05/23 23:00 10/05/23 23:00 10/05/23 23:30 Temperature Pulse Rate [Pulse Oximeter] Respiratory Rate 18 18 18 Blood Pressure [RI GHT FOREARM] Pulse Oximetry Oxygen Delivery Me thod 10/06/23 03:00 10/06/23 05:01 10/06/23 08:05 Temperature Pulse Rate [Pulse Oximeter] 98 Respiratory Rate 20 20 22 Blood Pressure [RI GHT FOREARM] Pulse Oximetry 93 92 Oxygen Delivery Me thod Room Air Room Air 10/06/23 08:08 10/06/23 11:15 Temperature 97.8 F 97.9 F Pulse Rate [Pulse Oximeter] 79 93 Respiratory Rate 22 20 Blood Pressure [RI GHT FOREARM] 128/61 104/55 L Pulse Oximetry 92 93 Oxygen Delivery Me thod Room Air Room Air Labs Labs: Laboratory Results - last 24 hr 10/06/23 05:43 Hgb 8.6 L Sodium 142 Potassium 4.0 Chloride 107 Carbon Dioxide 29 Anion Gap 6 L BUN 25 Creatinine 1.0 Estimated Creat Clear 40.63 Estimated GFR 61 Glucose 92 Calcium 9.0 Imaging Left knee x-ray: Attestation: I have reviewed the pertinent imaging results. Radiologist's impression: 10/03/2023: No acute bony abnormalities noted.
[2023-10-06 15:51] LABS: Fecal Occult Blood* Positive (Negative)
--- NOTE | 2023-10-06 15:53 | P.ORCN_ITS ---
History of Present Illness HPI Time Seen by Provider: 15:40 Date Seen: 10/06/23 Consult date: 10/06/23 Requesting physician: Juan Constantino Chief complaint: Left knee pain Narrative: Gracia c/o diffuse left anterior knee pain. Pain worsens with standing (with her easy lift) and use of the ceiling lift. Denies recent fall, however [facility] staff describe to me a traumatic bump with the Easy Stand lift that caused an area of ecchymosis to the anterior knee. DOI: 10/04/23. Patient describes hearing a pop in her knee during this event. Patient is non- ambulatory. At baseline, she utilizes a wheelchair. Pain is being treated with Tylenol and a lidocaine patch to her anterior knee. Unable to assess for knee swelling as patient's BMI is 59. Patient is currently being seen by PT and OT, but patient is difficult to work with and nonadherent to staff commands. Patient is well known to me. She is a previous wound clinic patient that was discharged from our Wound Clinic in 2021 because she was nonadherent to our recommendations and frequent cancellations. Review of Systems Const: Denies: fever or chills Cardio: Denies: chest pain or shortness of breath with exertion Resp: Denies: shortness of breath Musculo: Reports: joint pain (Left knee pain. ), limited range of motion (due to body habitus), joint swelling (Unable to assess due to body habitus) and other (ecchymosis over anterior knee) [facility] Medical History Ulcer of sacral region, stage 4 ?L98.429 - Non-pressure chronic ulcer of back with unspecified severity (ICD- 10) Stage IV pressure ulcer of sacral region ?L89.154 - Pressure ulcer of sacral region, stage 4 (ICD-10) Chronic pain ?G89.29 - Other chronic pain (ICD-10) Recurrent depression ?F33.9 - Major depressive disorder, recurrent, unspecified (ICD-10) Panic attacks ?F41.0 - Panic disorder [episodic paroxysmal anxiety] (ICD-10) Insomnia ?G47.00 - Insomnia, unspecified (ICD-10) Restless legs syndrome ?G25.81 - Restless legs syndrome (ICD-10) Urge incontinence of urine ?N39.41 - Urge incontinence (ICD-10) Controlled substance agreement signed ?Z79.899 - Other fci (current) drug therapy (ICD-10) Vitamin D deficiency ?E55.9 - Vitamin D deficiency, unspecified (ICD-10) MRSA (methicillin resistant staph aureus) culture positive (~12/05/15) ?Z22.322 - Carrier or suspected carrier of Methicillin resistant Staphylococcus aureus (ICD-10) Left ureteral stone (~12/11/15) ?N20.1 - Calculus of ureter (ICD-10) CKD (chronic kidney disease), stage III ?N18.30 - Chronic kidney disease, stage 3 unspecified (ICD-10) Acute osteomyelitis of coccyx (~08/2015) ?M46.28 - Osteomyelitis of vertebra, sacral and sacrococcygeal region (ICD- 10) Ulcers of both lower extremities with fat layer exposed ?L97.912 - Non-pressure chronic ulcer of unspecified part of right lower leg with fat layer exposed (ICD-10) ?L97.922 - Non-pressure chronic ulcer of unspecified part of left lower leg with fat layer exposed (ICD-10) Iron deficiency 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 ?D50.1 - Sideropenic dysphagia (ICD-10) Acute kidney injury (~01/2015) ?N17.9 - Acute kidney failure, unspecified (ICD-10) Dysthymia ?F34.1 - Dysthymic disorder (ICD-10) Bilateral leg weakness ?R29.898 - Other symptoms and signs involving the musculoskeletal system (ICD-10) Chronic acquired lymphedema ?I89.0 - Lymphedema, not elsewhere classified (ICD-10) Chronic, continuous use of opioids ?F11.90 - Opioid use, unspecified, uncomplicated (ICD-10) Venous stasis ulcer of thigh with fat layer exposed ?I83.001 - Varicose veins of unspecified lower extremity with ulcer of thigh (ICD-10) ?L97.102 - Non-pressure chronic ulcer of unspecified thigh with fat layer exposed (ICD-10) Elevated TSH ?R79.89 - Other specified abnormal findings of blood chemistry (ICD-10) DJD (degenerative joint disease) of knee ?M17.9 - Osteoarthritis of knee, unspecified (ICD-10) Morbid obesity ?E66.01 - Morbid (severe) obesity due to excess calories (ICD-10) Essential hypertension ?I10 - Essential (primary) hypertension (ICD-10) Surgical History S/P debridement ?Z98.890 - Other specified postprocedural states (ICD-10) S/P ureteral stent placement ?Z96.0 - Presence of urogenital implants (ICD-10) Family History Brother Diabetes Cardiovascular disease Father Cardiovascular disease High blood pressure Sister High cholesterol High blood pressure Mother Dementia Social History Narrative: Lives independently, partner Alex often with her. 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 Smoked an average of 0.3 packs per day for 2 years, quit in 1970. Denies alcohol use. Denies recreational drug use. Wishes to be full code. Sons Bhargav or Mick would be primary medical decision maker if needed. What is your current living situation?: I presently have a place to live Problems where you live: no known problems Problems where you live details: NA In the past 12 months, utilities in danger of being shut off: no In past 12 months, lack of transportation kept you from medical appts, meetings, work, or getting things needed for daily living: yes In the past 12 mos, have been you worried that your food would run out before you had money to buy more?: never true In the past 12 mos, the food you bought just didn't last and you didn't have money to buy more?: never true Highest level of school completed/degree received: 11th grade Smoking Status: Former smoker What tobacco products do you use: cigarettes Smoking quit date/years: >15 years ago Do you use any of these nicotine containing products: None Second hand tobacco smoke exposure: No How often do you have a drink containing alcohol: never How often do you have six or more drinks on one occasion: Never AUDIT-C Alcohol total score: 0 Non-prescribed substance use: denies use Caffeine: No How often does anyone, including family, friends and others, physically hurt you : never How often does anyone, including family, friends and others, insult or talk down to you: rarely How often does anyone, including family, friends and others, threaten you with harm: never How often does anyone, including family, friends and others, scream or curse at you: never service: No Meds Home Medications and Allergies Home Medications Medication Instructions Recorded Confirmed Type acetaminophen 500 mg capsule 1,000 mg PO TID PRN 03/28/23 10/04/23 History cholecalciferol (vitamin D3) 1,250 1,250 mcg PO 2XW 03/28/23 10/04/23 History mcg (50,000 unit) capsule (Weekly-D) ferrous sulfate 325 mg (65 mg 325 mg PO DAILY 03/28/23 10/04/23 History iron) tablet,delayed release furosemide 20 mg tablet 20 mg PO DAILY 03/28/23 10/04/23 History ondansetron 4 mg disintegrating 4 mg PO Q8H PRN 03/28/23 10/04/23 History tablet potassium chloride 10 mEq 10 meq PO DAILY 03/28/23 10/04/23 History tablet,extended release buprenorphine HCl 150 mcg buccal 150 mcg buccal BID 10/03/23 10/03/23 History film (Belbuca) Lactobacillus acidophilus 0.5 mg 0.5 mg PO DAILY 10/04/23 10/04/23 History (100 million cell) tablet collagenase clostridium histo. 250 1 applic topical DAILY 10/04/23 10/04/23 History unit/gram topical ointment (Santyl) diclofenac sodium 1 % topical gel 2 g topical BID 10/04/23 10/04/23 History duloxetine 30 mg capsule,delayed 30 mg PO DAILY 10/04/23 10/04/23 History release duloxetine 60 mg capsule,delayed 60 mg PO DAILY 10/04/23 10/04/23 History release hydrocortisone 1 % topical cream 1 applic topical BID 10/04/23 10/04/23 History meloxicam submicronized 5 mg 10 mg PO DAILY 10/04/23 10/04/23 History capsule zinc oxide 1 applic topical BID 10/04/23 10/04/23 History Allergies Allergy/AdvReac Type Severity Reaction Status Date / Time amoxicillin Allergy Unknown Verified 03/28/23 13:05 buspirone [From BuSpar] Allergy Unknown Verified 03/28/23 13:16 cephalexin [From Keflex] Allergy Unknown Verified 03/28/23 13:15 doxycycline Allergy Unknown Verified 03/28/23 13:15 latex Allergy Unknown Verified 03/28/23 13:15 lisinopril Allergy Unknown Verified 03/28/23 13:15 Penicillins Allergy Unknown Verified 03/28/23 13:15 Sulfa (Sulfonamide Allergy Unknown Verified 03/28/23 13:15 Antibiotics) Ortho Exam Narrative Exam Narrative: Patient presents alert and oriented x3. No acute distress at rest. Converses without labored breathing. Left knee/lower extremity exam: Diffuse, chronic bilateral lower extremity lymphedema. Unable to assess for effusion due to body habitus. Area of ecchymosis over anterior knee with small amoutn of dried blood present in anterolateral knee skin fold. No surgical scars. Increased warmth noted throughout patient's bilateral lower extremities. Mild-moderate tenderness to light palpation in all areas throughout left knee, especially when lifting up areas of skin to better examine the covered skin folds. Unable to assess ROM due to size of lower extremity. CMS intact distally with 2+ DP and PT pulses. [place], warm digits with brisk capillary refill. Xeroderma/xerosis present in all toes. Sensation confirmed distally. Const Vital Signs, click to edit/add: Vital Signs - 24 hr 10/05/23 16:00 10/05/23 16:00 10/05/23 20:00 Temperature 98.2 F 98.2 F Pulse Rate [Pulse Oximeter] 90 100 Respiratory Rate 20 20 Blood Pressure [RIGHT FOREARM] 150/76 H 121/86 Pulse Oximetry 96 96 92 Oxygen Delivery Method Room Air Room Air Room Air 10/05/23 23:00 10/05/23 23:00 10/05/23 23:30 Temperature Pulse Rate [Pulse Oximeter] Respiratory Rate 18 18 18 Blood Pressure [RIGHT FOREARM] Pulse Oximetry Oxygen Delivery Method 10/06/23 03:00 10/06/23 05:01 10/06/23 08:05 Temperature Pulse Rate [Pulse Oximeter] 98 Respiratory Rate 20 20 22 Blood Pressure [RIGHT FOREARM] Pulse Oximetry 93 92 Oxygen Delivery Method Room Air Room Air 10/06/23 08:08 10/06/23 11:15 Temperature 97.8 F 97.9 F Pulse Rate [Pulse Oximeter] 79 93 Respiratory Rate 22 20 Blood Pressure [RIGHT FOREARM] 128/61 104/55 L Pulse Oximetry 92 93 Oxygen Delivery Method Room Air Room Air Results Labs Labs: Laboratory Results - last 48 hr 10/05/23 10/06/23 10/06/23 06:02 05:43 Unknown Hgb 9.4 L 8.6 L Sodium 142 Potassium 4.0 Chloride 107 Carbon Dioxide 29 Anion Gap 6 L BUN 25 Creatinine 1.0 Estimated Creat Clear 40.63 Estimated GFR 61 Glucose 92 Calcium 9.0 Stool Occult Blood Positive A Diagnostic results Knee x-ray: report reviewed and image reviewed (2-view left knee images were reviewed Gracia. These show: severe tricompartmental joint space narrowing with osteophytic spurring. Osteopenic bones. No acute fractures. ) Assessment and Plan Assessment and plan (1) Left knee pain: Problem comment: DOI: 10/04/23. Status: Acute Assessment and Plan: Gracia and I reviewed her images, which rule out acute fracture. Gracia has advance left knee osteoarthritis, however in my opinion this is not the primary source of her pain. At rest, Gracia is moderately tender to light palpation throughout her lower extremity, especially with any manipulation of her skin folds. I recommend conservative treatment to her acute knee trauma from this bump with the Easy stand. This would include: rest, ice, lidocaine patch, Biofreeze topically and Tylenol PRN. May also consider compression therapy with either a tubigrip or an damaris wrap. Unfortunately, due to her size, knee bracing is not an option. I also do not believe a cortisone injection would beneficial. PT and OT cares as tolerated. No sign of wound infection. In comparison to when I last saw Gracia at our Wound Clinic in 2021, her wounds have decreased in size and look better. Thank you for this consult and please call Orthopedics with any concerns or questions. [phone]. Total time spent: Total time spent is greater than 50% in coordination of care (as documented) at patient's floor/unit and/or counseling patient: (2) Morbid obesity: Problem comment: - chronic with BMI 58 - weight on discharge in 06/05 was 111.7kg; 137 on admission 10/02/23 - will increase daily dose of furosemide, continue to monitor daily weights and Strict Is/Os - Nutrition consult Status: Chronic Total time spent: Total time spent is greater than 50% in coordination of care (as documented) at patient's floor/unit and/or counseling patient: (3) Debility: Problem comment: - acute on chronic, worsening weakness, weight gain Status: Acute Total time spent: Total time spent is greater than 50% in coordination of care (as documented) at patient's floor/unit and/or counseling patient: (4) Medically noncompliant: Problem comment: - left SNF AMA prior to returning to physical baseline, unclear if she fully understood her abilities as she is still unable to perform ADLs independently - history of refusing recommended medications, procedures, treatments - Now willing to consider SNF placement for long-term cares. Status: Acute Total time spent: Total time spent is greater than 50% in coordination of care (as documented) at patient's floor/unit and/or counseling patient:
--- NOTE | 2023-10-06 16:08 | PC.SOCIAL ---
Discharge planning: community arts worker followed up on referrals that were sent yesterday for the pt. The updates are listed below. 1. [facility] in [place]- Denial due to behaviors and bariatric status. 2. [facility]- denial due to behaviors and leaving AMA from previous placement. 3. [facility] in [place]- no LTC female beds at this time. 4. [facility] in [place]- denial due to bariatric status. 5. [facility] in [place]- Cannot reach. Mailbox full and cannot leave a message. New calls today: 1. [facility], #[phone]- left message. 2. [facility], #[phone]- no openings right now. 3. [facility], #[phone]- willing to review referral, faxed referral to #[phone]. 4. [facility], #[phone]- no openings right now. 5. [facility], #[phone]- left message. 6. [facility], #[phone]- left message. 7. [facility] in [place], #[phone]- left message. 8. [facility] in [place], #[phone]- left message. 9. [facility] in [place], #[phone]- left message. 10. [facility]), #[phone]- left message. Social work to follow-up as needed.
--- NOTE | 2023-10-06 17:03 | PC.NURSE ---
Addendum entered by Beatriz Gibbons RN 10/06/23 18:46: Patient had x1 loose BM, placed back in bed via ceiling lift. Small wound on right buttock cleansed and covered with mepilex, small cluster of wounds on left buttock cleansed and covered in mepilex. barrier cream applied to bottom. Original Note: Shift Summary: Patient had good behavior this morning, assisted staff with ADLs, agreeable to skin care. Throughout day pain has gotten worse and patient has become more agitated. Demands staff transfer her via walker, informed this is not safe, PT recommendation is ceiling lift. patient has been refusing PT and was unable to work with them today. When patient is in ceiling lift is yelling at staff, has said I'm going to put you in this sling and lift you all the way to the ceiling, informed patient that this is not appropriate communication with staff, patient apologized for behavior. Another staff stated that patient was holding call light and said I want to shove this stupid thing up somebody, Nurse manager document updated and patient has been talked to. Dressing change done to bilat legs, lidocaine patch on lower back and left knee. Left knee with bruising and swelling, consult to ortho today. No mepilex noted on bottom at start of shift, when lifting patient in ceiling lift this evening noted blood on chux,unable to visualize where blood was coming from, patient unable to tolerate more time in lift to assess, agreeable to assessment once back in bed however refusing to transfer to bed at this time.
[2023-10-06] MEDS: DULOXETINE 30 MG CAPSULE DR PO (20:55)
[2023-10-06] MEDS: GABAPENTIN 300 MG CAPSULE PO (20:56)
[2023-10-07] MEDS: ACETAMINOPHEN 325 MG TABLET 975 MG PO ×4 (00:48→21:08)
--- NOTE | 2023-10-07 05:13 | PC.NURSE ---
approx 2245 Pt incontinent of BM, staff went into room to clean patient and change brief/chux. Pt refused to roll and let staff assist in moving. Pt yelling at staff not to touch her and she can move herself, she was unable to move over herself and continued to refuse to allow staff to help her roll and she refused to allow staff to clean her up. Pt yelling at staff and adamant about not rolling. After several attempts, allowed staff to lift her leg, yelled at staff as soon as they touched her leg and continued to yell at staff while staff cleaned her up and placed new brief and chux under her. Pt then refused to roll over to the other side to allow staff to remove soiled chux from under her. she informed staff that she can lift herself up and staff can slide it out from under her, pt attempted to do this but was unable to lift herself up, staff tried to reason with patient that this was unsuccessful and pt yelled at staff not to touch her that she was not going to roll over and that she can lift herself up. After several attempts of reasoning with patient, patient agreeable to lay on back and slide over to allow staff to removed soiled chux/brief, staff assisted her onto her back and patient yelled at staff that she was going to press assault charges because staff helped patient lay onto back to removed soiled chux/brief from under patient.
[2023-10-07 05:18] VITALS: RESP 20
[2023-10-07] MEDS: MENTHOL 57 GM GEL 1 APPLIC TOPICAL ×3 (05:53→21:42)
[2023-10-07 06:35] LABS: HCO3 VBG 30 mmol/L (21-28); PCO2 VBG 50 mmHG (40-50); PO2 VBG 46.5 mmHG (25-47); pH VBG 7.378 (7.32-7.43)
[2023-10-07 06:45] LABS: Hemoglobin* 9.1 gm/dL (12.0-16.0); Immature Reticulocyte Fraction 14.9 % (3.0-15.9); Reticulocyte Hemoglobin Equivi 25.6 pg (29.0-35.0); Reticulocyte Percent 2.1 % (0.5-2.0); Reticulocytes Absolute 0.07 # (0.03-0.08)
[2023-10-07 07:00] VITALS: BP 142/76; PULSE 84; RESP 20; TEMP 36.4; O2SAT 94
[2023-10-07 07:17] LABS: NT Pro B Type NatriureticPept* 1390 pg/mL
--- NOTE | 2023-10-07 08:17 | PC.NURSE ---
assistant media planner note: Around 8am patient asked to get up to the chair/recliner. 2 nursing assistants proceeded to do her morning cares. She stated that she just wants to get her up, but agreed to wash her face. assistant media planner then started to set her up with ceiling lift to move her to the chair. As we were trying to put the sling under her legs she began to scream that she didn't want to use the sling. staff reminded her this is the only way to move to the chair. While moving her to the chair she screamed put me down repeatedly. Once she was in the chair staff put pillows under each leg. Patient then stated she wanted to put her legs down. Staff reminder her that when she puts her legs down she falls out of the chair. Patient also stated that no one has worked with her to get her strength back. Nursing assistants reminded her Physial and occupational have worked with her multiple times to try and help her. Patient continues to be difficult with them as well.
[2023-10-07] MEDS: APIXABAN 5 MG TABLET PO ×2 (09:34→21:09)
[2023-10-07] MEDS: FUROSEMIDE 20 MG TABLET PO (09:34)
[2023-10-07] MEDS: POTASSIUM CHLORIDE 10 MEQ CAPSULE ER PO (09:34)
[2023-10-07] MEDS: FERROUS SULFATE 325 MG TABLET PO (09:35)
[2023-10-07] MEDS: NYSTATIN POWDER 1 APPLIC TOPICAL ×2 (09:38→21:10)
[2023-10-07] MEDS: TRIAMCINOLONE ACETONIDE CREAM 0.1 % 1 APPLIC TOPICAL ×2 (09:38→21:09)
[2023-10-07 11:00] VITALS: BP 121/95; PULSE 73; RESP 20; TEMP 36.8; O2SAT 96
--- NOTE | 2023-10-07 11:38 | NUTR.NU ---
RDN attended care conference with other departments including hospitalist and charge nurse present to discuss goals of care and care moving forward. Hospitalist discussed starting a calorie controlled, high protein diet with patient for weight loss and wound healing. Patient verbally agreed to this diet. RDN recommends patient to follow a 1500 calorie diet which meets her estimated energy needs. Patient reports she dislikes certain foods. RDN plans on meeting with patient later today to review diet and modify room service menu options to fit with patient's food preferences. Patient in agreement with this plan and visiting at a later time with RDN.
[2023-10-07] MEDS: fentaNYL 12 mcg/hr PATCH 1 PATCH TRANSDERMA (11:52)
[2023-10-07] MEDS: LIDOCAINE 5% PATCH 2 PATCH TRANSDERMA (11:55)
--- NOTE | 2023-10-07 11:56 | REH.OT ---
OT: OT attended interdisciplinary team care conference to address patient's goals, role of OT and pt's status to date in therapy sessions. Patient will be re-evaluated at next session as she is reporting she will cooperate and that her goal is to walk. Continue to anticipate she will need SNF placement at discharge.
--- NOTE | 2023-10-07 13:22 | NUTR.NU ---
RDN visited with patient regarding diet order change from Regular diet to 1500 kcal-controlled diet. A 1500 kcal controlled diet is appropriate for patient which meets her estimated energy needs. RDN presented patient with a room service menu with high-calorie foods crossed off. Patient reports she only likes certain foods, including chicken tenders, a fish sandwich with no bun, and regular sprite. She reports having up to 3-4 sprites daily. These specific foods were crossed off the room service menu and patient reports she will only eat these foods from the menu. RDN discussed other food options with her such as grilled chicken breast, baked cod, and roast turkey. Patient reports she does not like those foods and said again she would only eat chicken tenders, a fish sandwich with no bun, and regular sprite. She likes to have 3-4 sugar packets with her cheerios. RDN agreed for patient to receive chicken tenders, a fish sandwich with no bun, and regular sprite as long as patient was willing to choose sugar-free desserts including puddings and limiting condiments to only 1 package daily and sugar packets to only 2 daily, and limiting sprite to only 2 daily. Patient agreed to this. Below is a list of dietary change patient agreed to: 1. Limit regular Sprite to only 2 per day. This will come from [facility] kitchenette, not to be sent up on patient's try by Culinary Services so this can be monitored. 2. Limit sugar packets to only 2 when patient has hot/cold cereals. 3. Ok to have fish sandwich, but no bun. 4. Ok to have chicken tenders. 5. Limit condiments: Ok to have 1 packet of tartar sauce with fish sandwich and 1 packet of ranch with chicken tenders. RDN also highlighted foods on patient's room service menu that are higher in protein for wound healing. RDN reviewed this with patient and encouraged her to pick one of these at each meal such as hungarian yogurt, cottage cheese, nuts, chicken breast, baked cod, etc. Patient's daily protein needs are at least 84 grams per day. RDN offered premier protein supplement which provides 160 kcals and 30 grams of protein per bottle, however patient declined at this time. Patient is in agreement to follow calorie controlled room service menu which RDN left in patient's room. RDN hand wrote items patient is allowed to have and patient reviewed menu while RDN was in the room. RDN encouraged patient to let staff know if she has any questions or concerns. RDN encouraged patient to ask for RDN if she has concerns regarding diet or room service menu. RDN asked patient if it was ok for RDN to contact her significant other, Alex, of this diet. She declined RDN contacting him at this time. RDN informed charge nurse, nurse build and release manager and culinary services of patient's diet and meal plan. RDN also provided [facility]inary Services with copy of patient's room service menu and diet ordering guide. RDN will continue to monitor and attempt to follow-up with patient tomorrow.
--- NOTE | 2023-10-07 13:40 | PC.NURSE ---
Nurse Note:? We had a care team meeting this am with the patient in ccu1.? It was the hospitalist, PT, OT, Safety Compliance Specialist and this advertising copywriter representing nursing.? We started out by letting the patient talk as it was noted that she does have a difficult time with having too many people in her room at one time.? She also acknowledges that she has a problem due to experiences she had as a child.? She says she has claustrophobia due to how she was treated by one of her brothers, this is why she does not like big groups.?? We asked her what her goals were as far as herself in general.? Her goals are: 1. to walk. 2. To go back home as soon as possible. 3. To remain independent in her own home.? It was explained to her that as of right now we have all assessed her to not be safe if she goes home.? She was asked if she understands this about not being safe at home and her response was ?Yes I do?. ??Currently she is needing a lot of help.? She can?t transfer on her own.? She had wounds that need to be taken care of and she is having significant pain which causes her to be unable to complete tasks.? We are in agreement with her goals and have asked her to be a participant in her care.? We are here to work with her and not against her.? She has stated she will work with PT and OT.? She did bring up that she doesn?t like the ceiling lift as she is scared to use it because it causes leg pain.? Her pain is being address as the provider is looking at what more we can add to her treatment to hopefully get her pain better.? But for right now the safest plan for all in involved is to use the ceiling lift.? It was explained by Leonardo PT that the way she stands in the EZ stand is not safe as they are afraid of her ending up on the floor getting hurt or one of us getting hurt. She is in agreement as therapy will start by having her work on the parallel bars to hopefully build strength to get to a pivot transfer.? She was at a rehab facility before coming here and she states that they had her doing that and that she was able to do pivot transfers.? Then we discussed with her the wounds she has and the importance of us being able to reposition her.? She will try and help with repositioning.? Also discussed her behavior of yelling out, making threats and calling staff names.? We understand that she is frustrated and angry with her situation but have asked her to treat us with respect just as we treat her with respect, this is not an option but is the expectation.? She is going to work on this. Then we talked with her about nutrition and how important it is for her wound healing. She was in agreement, we will have the nut chopper work with her to develop a plan that would help with wound healing along with possibly help with weight loss as the weight loss could also help decrease her pain.? She has agreed to work on this plan too.? At end of the discussion she had no other concerns noted.? We will work to help patient work towards her goals listed above and she will work to do the followin.? Participate with PT to work on a safe transfer 2.? Participate with OT to accomplish self-care 3.? Participate with nursing in repositioning and care. 4.? Participate with nut chopper on a plan for wound healing and weight loss 5.? Treat all staff with respect. This is in addition to the Care plan already create with the Director of Inpatient services earlier this week.
--- NOTE | 2023-10-07 13:41 | P.IMPN_ITS ---
Progress Note: A&P Assessment and plan (1) Left knee pain: Problem details: - DOI: 10/04/23? - during care team conference of patient acknowledges that she has had this left knee pain since prior to being admitted to the hospital and likely when she was still at the [facility]. - continue with nonpharmacologic and pharmacologic support at this time including working with Physical therapy. Status: Acute (2) Morbid obesity: Problem details: - chronic with BMI 58 - weight on discharge in 06/05 was 111.7kg; 137 on admission 10/02/23 - will increase daily dose of furosemide, continue to monitor daily weights and Strict Is/Os - Nutrition consult Status: Chronic (3) Debility: Problem details: - acute on chronic, worsening weakness, weight gain Status: Acute (4) Medically noncompliant: Problem details: - left SNF AMA prior to returning to physical baseline, unclear if she fully understood her abilities as she is still unable to perform ADLs independently - history of refusing recommended medications, procedures, treatments - Now willing to consider SNF placement for long-term cares. Status: Acute (5) Bilateral leg weakness: Status: Chronic (6) Chronic acquired lymphedema: Problem details: Chronic. Scabbed wound right lower extremity, wound left lower extremity with Mepilex, weeping Bilateral lower extremity wraps, elevation Continue Lasix Outpatient lymphedema clinic Status: Chronic (7) Incontinence associated dermatitis: Problem details: - Gutierrez catheter for now, along with other incontinence associated dermatitis prevention precautions - continue to try to encourage patient to help herself Status: Acute (8) Anemia: Problem details: - additional laboratory testing, including type and screen Status: Acute (9) Seborrheic dermatitis: Problem details: - ketoconazole 2% cream mixed with equal parts of triamcinolone 0.1% cream applied topically to affected areas twice daily Status: Acute (10) Low back pain: Problem details: - no red flag symptoms - refused CT in ED - although she remarks her back pain is better than it has been in a long time, she remains rather uncooperative - adding low-dose fentanyl transdermal patch 12 mcg q.72 hours Status: Acute (11) CKD (chronic kidney disease), stage III: Problem details: - baseline creatinine 0.8-1.2 Avoid nephrotoxic medications, continue to monitor Status: Chronic (12) Essential hypertension: Problem details: - continue furosemide for HTN and lymphedema/LE edema Status: Chronic (13) Chronic pain: Problem details: Per [facility] records: Chronic pain due leg ulcers since 2018. She thinks she has been on pain medications since 2019 for the leg ulcers. She was told today (07/22/2022) that she needs to establish care at the pain clinic. She is to notify me as soon as she gets an appointment at the pain clinic. Status: Acute Plan 1. Please see the nursing note from Ange Gilmore dated 10/07/2023 regarding care team conference. 2. Patient will work with occupational therapy to attempt offloading question in sitting chair, she will work on decreasing the time that she sits in her chair, work with PT and OT regarding transferring safely with goal of getting to the point of being able to pivot transfer and not to the point of using the EZ stand. 3. In regard to her anxiety and depression, we will increase her dose of duloxetine from 30 mg once daily to 60 mg once daily. This should also help alleviate some of the neuropathic pain. 4. Will start a very low dose of fentanyl 12 mcg patch changed every 3 days. If after 3 days she has some pain relief but not adequate then do consideration will be given to to the possibility of increasing the dose to 25 mcg patch changed every 3 days, this being the maximum dose that we would go to. While at the [facility] she had been started on buprenorphine, which we are unable to continue here in our institution. Previously she had been on oral morphine 15 mg twice daily and 15 mg daily p.r.n.. 5. I also wrote an order for lorazepam 1 mg once daily as needed for anxiety. She tells me she has been on such an order for a number of years but rarely utilize did. 6. Continue with efforts to achieve placement in a long-term nursing home facility. 7. Project Coordinator Rn consulted for optimization of her diet including for wound care as well as weight loss. Time Spent With Patient Total time spent: 60 minutes Subjective Date Seen: 10/07/23 Interval history: Hospital day 6. I visited with the patient and examined her twice this morning. First I did so with only her in the room. Secondly I did so during the care team conference that was held late this morning, with RN, PT, OT, and nutrition also participating actively in the conference. During the conference patient articulated her goals and aspirations to: 1. Walk preferably without a walker but if with a walker she will be satisfied, 2. Return to live in her home as soon as possible, and 3. Be as independent as she possibly can as long as she can. Patient uncertain as to what is preventing her from walking at this time. As we discuss this further she eventually concludes that her biggest tiburcio now is uncontrolled pain in her left knee and her ankles, both of which she had before she was admitted to the hospital presently. When I visit her this morning initially and subsequently during the care team conference patient was respectful. Exam Narrative: Exam Narrative: When laying in bed and sitting in the recliner chair at her bedside she appears comfortable and in no acute distress. Vision and hearing are normal. Alert and oriented to self, place, time, situation. Cooperative and articulate. Lungs are clear to auscultation without wheezing, rhonchi, rales. Heart tones with regular rhythm, normal S1-S2, without murmur, gallop, rub. Obese abdomen with active bowel sounds, soft, nontender. Bilateral lower extremity lymphedema without weeping. Leg wounds appear stable at this time. No focal motor neurologic deficits. Gutierrez catheter in place to allow for healing of wounds related to incontinence associated dermatitis which she had when she 1st presented. Const: Vital Signs, click to edit/add: Vital Signs - 24 hr 10/06/23 15:00 10/06/23 15:00 10/06/23 15:00 Temperature 97.7 F Pulse Rate [Pulse Oximeter] 90 90 Respiratory Rate 18 18 18 Blood Pressure [RI GHT FOREARM] 161/84 H Pulse Oximetry 94 94 Oxygen Delivery Me thod Room Air Room Air 10/06/23 19:00 10/06/23 23:00 10/06/23 23:00 Temperature 97.6 F 97.4 F L Pulse Rate [Pulse Oximeter] 97 88 Respiratory Rate 22 20 20 Blood Pressure [RI GHT FOREARM] 139/65 153/81 H Pulse Oximetry 96 96 96 Oxygen Delivery Me thod Room Air Room Air Room Air 10/06/23 23:30 10/07/23 05:18 10/07/23 07:00 Temperature 97.6 F Pulse Rate [Pulse Oximeter] 84 Respiratory Rate 20 20 20 Blood Pressure [RI GHT FOREARM] 142/76 H Pulse Oximetry 94 Oxygen Delivery Me thod Room Air 10/07/23 07:00 10/07/23 07:00 10/07/23 11:00 Temperature 98.2 F Pulse Rate [Pulse Oximeter] 84 73 Respiratory Rate 20 20 20 Blood Pressure [RI GHT FOREARM] 121/95 H Pulse Oximetry 94 96 Oxygen Delivery Me thod Room Air Room Air Documenting provider has reviewed patient's vital signs: yes Labs Labs: Laboratory Results - last 24 hr 10/06/23 10/07/23 Unknown 06:15 Hgb 9.1 L Absolute Retic 0.07 Percent Retic 2.1 H Immature Retic Fraction 14.9 Retic Hgb Equivalent 25.6 L VBG pH 7.378 VBG pCO2 50 VBG pO2 46.5 VBG HCO3 30 H NT-Pro-B Natriuret Pep 1390 Stool Occult Blood Positive A Blood Type A Positive Antibody Screen NEGATIVE
--- NOTE | 2023-10-07 13:45 | PC.APCO ---
guest services manager consult: machine shop worker submitted a vulnerable adult report with [facility] due to pt's reports to the social science professor department of multiple concerns/issues she had during her stay at [facility]. Report #[id number]. Social work to follow-up as needed.
--- NOTE | 2023-10-07 14:04 | PC.SOCIAL ---
Addendum entered by FRANSISCO Curiel 10/07/23 16:33: Discharge planning: pass worker heard back from [facility] #[phone], whom stated they would be willing to review the pt's TCU referral with updated PT/OT notes after tomorrows therapy sessions. pass worker will send the referral to them tomorrow. [facility], [facility], [facility] in [place] and [facility] have not responded back to this worker. Social work to follow-up as needed. Addendum entered by FRANSISCO Curiel 10/07/23 15:10: Discharge planning: pass worker re-sent pt's referral to [facility] this afternoon and explained that this worker could send updated PT/OT notes tomorrow after they meet with pt. They are willing to re-look at the referral. pass worker also sent a referral to [facility] in [place] #[phone], as they said they could review the referral for LTC earlier this morning; however, this worker updated Admissions later in the afternoon and explained that the pt is willing to participate in therapies again and will need TCU. They can review her referral for TCU with updated PT/OT notes that this worker will send tomorrow. Social work to follow-up as needed. Original Note: Discharge planning: pass worker met with pt to discuss discharge planning. Pt does not feel she needs LTC and is now willing to work with PT/OT for therapies and go to a SNF for rehab only, so that she can eventually return back to her town home. pass worker explained that this worker was looking for placement and would check-in with her about any updates. pass worker also provided supportive listening in regard to pt's concerns that she shared about her previous rehab experience at [facility] in [place]. Pt stated that she will not go back to [facility]. Pt stated that she would really like to go to [facility] in [place]. Social work to follow-up as needed.
[2023-10-07 15:00] VITALS: BP 143/79; PULSE 94; RESP 20; TEMP 36.3; O2SAT 97
--- NOTE | 2023-10-07 19:00 | PC.NURSE ---
End of Shift: Patient primarily cooperative this shift, and has been more respectful to staff.?A&O. VSS, SpO2 maintained over 90% on room air.?Patient reports pain on her legs throughout the day, applied fentanyl patch per MD order. No change noted yet.?Chronic?edema noted on lower extremities.? Patients catheter was dislodged during transfer, new catheter was placed. Met with nutrition, and was put on a 1500 calorie diet. Patient was overheard on the phone with her boyfriend asking for cookies.?Patient had 1x large liquid incontinent BM today.?Frequently repositioned patient throughout the shift. Dressing change completed on legs, both had scant brown drainage. Patient has roughly 1 inch open wound on her labia, mepilex applied.
[2023-10-07 20:56] VITALS: BP 153/81; PULSE 94; RESP 18; TEMP 36.8
[2023-10-07] MEDS: GABAPENTIN 300 MG CAPSULE PO (21:05)
[2023-10-07] MEDS: DULOXETINE 30 MG CAPSULE DR PO (21:08)
[2023-10-07 23:55] VITALS: RESP 20
[2023-10-08] VITALS (10 sets, daily range): BP systolic 125–142; BP diastolic 59–80; PULSE 79–97; RESP 18–22; TEMP 36.3–36.8; O2SAT 93–96
[2023-10-08] MEDS: MELATONIN 3 MG TABLET 6 MG PO (01:09)
[2023-10-08] MEDS: MENTHOL 57 GM GEL 1 APPLIC TOPICAL (01:09)
[2023-10-08] MEDS: ACETAMINOPHEN 325 MG TABLET 975 MG PO ×4 (03:06→22:35)
[2023-10-08 06:15] LABS: Hemoglobin* 8.5 gm/dL (12.0-16.0)
--- NOTE | 2023-10-08 07:02 | PC.NURSE ---
Pt is alert and oriented x3. Pt refused vital signs x1?pt states ?That cuff squeezes too tight? this headline writer?got another VS machine which pt allowed once but reported it felt the same and refused the next vs stating??I just want to sleep, you can do that during the day, I need sleep?. Pt reports 8/10 pain in left leg and back, managed with PRN and scheduled medications. Pt?s MAR showed fetynal patch to upper outer left arm, patch was not present at 2030 when doing assessment, had pt take off shirt, checked back and checked inside shirt, looked through bed sheets, on ground, in-between mattress and handrails, checked right arm front and back. Informed charge nurse and Dr. Carcamo. discontinued fentanyl patch. Pt?s covarrubias catheter is patent and draining. Pt is up with ceiling lift.?
[2023-10-08] MEDS: APIXABAN 5 MG TABLET PO (09:07)
[2023-10-08] MEDS: FUROSEMIDE 20 MG TABLET PO (09:07)
[2023-10-08] MEDS: POTASSIUM CHLORIDE 10 MEQ CAPSULE ER PO (09:07)
[2023-10-08] MEDS: FERROUS SULFATE 325 MG TABLET PO (09:07)
[2023-10-08] MEDS: NYSTATIN POWDER 1 APPLIC TOPICAL ×2 (09:09→20:35)
[2023-10-08] MEDS: TRIAMCINOLONE ACETONIDE CREAM 0.1 % 1 APPLIC TOPICAL ×2 (09:09→20:37)
[2023-10-08] MEDS: LIDOCAINE 5% PATCH 2 PATCH TRANSDERMA (12:05)
--- NOTE | 2023-10-08 12:10 | P.IMPN_ITS ---
Progress Note: A&P Assessment and plan (1) Left knee pain: Problem details: - DOI: 10/04/23? - during care team conference of patient acknowledges that she has had this left knee pain since prior to being admitted to the hospital and likely when she was still at the [facility]. - continue with nonpharmacologic and pharmacologic support at this time including working with Physical therapy. Status: Acute (2) Morbid obesity: Problem details: - chronic with BMI 58 - weight on discharge in 06/05 was 111.7kg; 137 on admission 10/02/23 - will increase daily dose of furosemide, continue to monitor daily weights and Strict Is/Os - Nutrition consult. 1500 calorie diet Status: Chronic (3) Debility: Problem details: - acute on chronic, worsening weakness, weight gain Status: Acute (4) Medically noncompliant: Problem details: - left SNF AMA prior to returning to physical baseline, unclear if she fully understood her abilities as she is still unable to perform ADLs independently - history of refusing recommended medications, procedures, treatments - Now willing to consider SNF placement for long-term cares. Status: Acute (5) Bilateral leg weakness: Problem details: Still unable to stand and transfer due to pain and weakness Status: Chronic (6) Chronic acquired lymphedema: Problem details: Chronic. Scabbed wound right lower extremity, wound left lower extremity with Mepilex, weeping Bilateral lower extremity wraps, elevation Continue Lasix Outpatient lymphedema clinic Status: Chronic (7) Incontinence associated dermatitis: Problem details: - Gutierrez catheter for now, along with other incontinence associated dermatitis prevention precautions - continue to try to encourage patient to help herself Status: Acute (8) Anemia: Problem details: - additional laboratory testing, including type and screen. Had iron deficiency in May 2023. Also positive stool occult blood testing on this admission Status: Acute (9) Seborrheic dermatitis: Problem details: - ketoconazole 2% cream mixed with equal parts of triamcinolone 0.1% cream applied topically to affected areas twice daily Status: Acute (10) Low back pain: Problem details: - no red flag symptoms - refused CT in ED - although she remarks her back pain is better than it has been in a long time, she remains rather uncooperative - adding low-dose fentanyl transdermal patch 12 mcg q.72 hours Status: Acute (11) CKD (chronic kidney disease), stage III: Problem details: - baseline creatinine 0.8-1.2 Avoid nephrotoxic medications, continue to monitor Status: Chronic (12) Essential hypertension: Problem details: - continue furosemide for HTN and lymphedema/LE edema Status: Chronic (13) Chronic pain: Problem details: Per [facility] records: Chronic pain due leg ulcers since 2018. She thinks she has been on pain medications since 2019 for the leg ulcers. She was told today (07/22/2022) that she needs to establish care at the pain clinic. She is to notify me as soon as she gets an appointment at the pain clinic. Previously on morphine then switched to buprenorphine. Continue buprenorphine titration now Status: Acute (14) GI bleeding: Problem details: Patient has chronic anemia which is relatively stable but with heme occult positive stool file taking iron and recent history of iron deficiency. Continue to monitor blood count, monitor for bleeding. Stop apixaban. Endoscopy urgently if unstable and electively if doing well Status: Acute Plan Patient with continued in hospital for management of immobility, disability, p ain, anemia pending safe discharge plan. Time Spent With Patient Total time spent: Total time spent today is 60 minutes, 45 minutes in coordination of care and discussing with patient and other providers ongoing management of pain, disability, anemia. Subjective Date Seen: 10/08/23 Interval history: 67-year-old female with morbid obesity, sacral decubitus ulcer, chronic pain admitted to the hospital with back pain on October 01. She [place] [facility] the day prior to admission here. At discharge she did not receive a prescription for ongoing buprenorphine (Belbuca 150 mcg bid) therapy for her chronic pain. Because this he came to our emergency department for pain management. She was admitted because there were concerns about her inability to care for herself in the home. Since being hospitalized she reports ongoing pain particularly in her left knee. She has a bruise on her left knee which occurred sometime just prior to or just after admission to the hospital. She reports her knee is quite painful. Radiographs show chronic degenerative changes and osteopenia but no obvious fracture. The back pain that brought her to the hospital is better though still bothersome. She reports no dyspnea except with any activity or with anything that upsets her. No chest pain. No abdominal pain. She is reporting some diarrhea. She was treated with antibiotics for a wound infection initially. She was not felt to have a serious infection so antibiotics were discontinued. Over the last couple days she has had conversations about goals of care, plan of care and location of care. Her primary goal is to get back to independent living. The Care teams feeling is the best chance for this is to get her more involved with therapy. Due to pain her ability to tolerate therapies decreased. Because of this will put her back on buprenorphine to see if we can help her pain and more safely manage her pain as an outpatient. Will also continue to work with her on nutrition with a plan for chronic weight loss to improve her chances of regaining mobility and independence, in addition to all the other health benefits.. Exam Narrative: Exam Narrative: She is alert and appears in no distress. Sitting in a chair. Breathing is unlabored. Small airway. Neck is supple without mass or adenopathy. Respirations are clear to auscultation. Cardiovascular: S1, S2, regular rate and rhythm. No murmur gallop or rub. Abdomen: Bowel sounds active. Abdomen is soft without tenderness or mass. Extremities with chronic edema. Bruising in the area of the anterior patella on the left. Entire left knee and leg is fairly tender to touch No significant lower extremity erythema. Const: Vital Signs, click to edit/add: Vital Signs - 24 hr 10/07/23 15:00 10/07/23 15:00 10/07/23 15:00 Temperature 97.4 F L Pulse Rate [Pulse Oximeter] 94 94 Respiratory Rate 20 20 20 Blood Pressure [RI GHT FOREARM] 143/79 H Pulse Oximetry 97 97 Oxygen Delivery Me thod Room Air Room Air 10/07/23 20:56 10/07/23 23:55 10/07/23 23:55 Temperature 98.3 F Pulse Rate [Pulse Oximeter] 94 Respiratory Rate 18 20 20 Blood Pressure [RI GHT FOREARM] 153/81 H Pulse Oximetry Oxygen Delivery Me thod 10/07/23 23:55 10/08/23 01:21 10/08/23 03:13 Temperature Pulse Rate [Pulse Oximeter] 97 Respiratory Rate 20 20 20 Blood Pressure [RI GHT FOREARM] Pulse Oximetry 96 Oxygen Delivery Me thod Room Air 10/08/23 05:47 10/08/23 07:00 10/08/23 07:00 Temperature Pulse Rate [Pulse Oximeter] 79 Respiratory Rate 18 22 22 Blood Pressure [RI T FOREARM] Pulse Oximetry 94 Oxygen Delivery Me thod Room Air 10/08/23 08:17 Temperature 97.9 F Pulse Rate [Pulse Oximeter] 79 Respiratory Rate 22 Blood Pressure [RI T FOREARM] 142/73 H Pulse Oximetry 94 Oxygen Delivery Me thod Room Air Documenting provider has reviewed patient's vital signs: yes Labs Labs: Laboratory Results - last 24 hr 10/08/23 05:58 Hgb 8.5 L
[2023-10-08] MEDS: buprenorphine HCL 2 MG TAB.SUBL 0.5 MG SL (12:44)
[2023-10-08] MEDS: OMEPRAZOLE 20 MG CAPSULE DR PO (12:44)
--- NOTE | 2023-10-08 15:01 | NUTR.NU ---
RDN attempted to follow-up with patient x4 today. Patient was not available on all attempts. RDN will attempt to follow-up with patient on Wednesday.
--- NOTE | 2023-10-08 15:36 | PC.SOCIAL ---
Addendum entered by FRANSISCO Curiel 10/08/23 16:31: Discharge planning: wind turbine sheet metal worker sent referral to [facility] #[phone] this afternoon. wind turbine sheet metal worker also left a message with [facility] #[phone] and [facility] in [place] #[phone] regarding availability. Social work to follow-up as needed. Addendum entered by FRANSISCO Curiel 10/08/23 16:08: Discharge planning: wind turbine sheet metal worker received a message back from Sloane at [facility] stating that they need to see more consistent progress with behavior changes in regard to therapy and cares. Hopefully, pt will continue to be more compliant throughout the weekend, so that aids social worker can send more progress notes to [facility] on Wednesday. wind turbine sheet metal worker attempted to give pt this update this afternoon, but the pt was napping and this social science teacher did not want to disturb her. Social work to follow-up as needed. Original Note: Discharge planning: wind turbine sheet metal worker sent today's OT/PT notes for pt after she participated to [facility] in [facility] in [facility]). wind turbine sheet metal worker also checked in with pt briefly when she was eating lunch and explained that this worker would sent updated notes to [facility] and other facilities. [facility] is pt's first choice for SNF rehab placement. Pt was pleased with this plan. Social work to follow-up as needed.
--- NOTE | 2023-10-08 18:27 | PC.NURSE ---
Ads-kc-Pomst Note (): Pt A&OX3 throughout shift. Patient more cooperative with improved behaviors. Patient transferred to wheelchair via ceiling lift with PT/OT; pt tolerated fairly well. Patient continues to have a moderate amount of pain; patient receiving scheduled Tylenol and Lidocaine patches. Patient's vital signs within normal limits. O2 sats remain >92% on RA. Dressing changes completed to bilateral calves. Mepilex on sacrum C/D/I/. Nystatin powder and Interdry in place under breasts and abdominal folds. DC plan pending; patient waiting for placement for rehab. Indwelling covarrubias catheter in place and patent. Patient has a good appetite and eats 100% of meals. Will continue to implement ongoing plan of care.
[2023-10-08] MEDS: buprenorphine HCL 2 MG TAB.SUBL 1 MG SUBLINGUAL (20:35)
[2023-10-08] MEDS: DULOXETINE 30 MG CAPSULE DR PO (20:36)
[2023-10-08] MEDS: GABAPENTIN 300 MG CAPSULE PO (20:36)
[2023-10-09] VITALS (8 sets, daily range): BP systolic 115–134; BP diastolic 73–75; PULSE 82–90; RESP 18–22; TEMP 36.3–36.6; O2SAT 94–95
[2023-10-09 06:16] LABS: Basophils Absolute Auto 0.03 K/uL (0.00-0.30); Basophils Percent Auto 0.6 % (0.0-3.0); Eosinophils Absolute Auto 0.26 K/uL (0.00-0.50); Eosinophils Percent Auto 5.6 % (0.0-7.0); Hematocrit 30.1 % (33.0-51.0); Hemoglobin* 9.2 gm/dL (12.0-16.0); Immature Granulocytes Abs Auto 0.02 K/uL (0.00-0.30); Immature Granulocytes Pct Auto 0.4 %; Lymphocytes Absolute Auto 1.27 K/uL (0.90-2.90); Lymphocytes Percent Auto 27.4 % (20-44); Mean Corpuscular HGB Conc 31 gm/dL (32-36); Mean Corpuscular Hemoglobin 28 pg (26-34); Mean Corpuscular Volume 92 fL (80-100); Monocytes Percent Auto 9.3 % (0.0-11.0); Neutrophils Absolute Auto 2.62 K/uL (1.7-7.0); Neutrophils Percent Auto 56.7 % (42.0-72.0); Platelet Count* 215 K/uL (140-440); RDW Coefficient of Variation % 13.2 % (11.5-15.5); Red Blood Count 3.26 m/uL (4.00-5.20); White Blood Count* 4.63 K/uL (4.50-11.00)
[2023-10-09 06:19] LABS: Slide Review Reflex No
[2023-10-09 06:32] LABS: Chloride* 105 mmol/L (96-114); Potassium* 4.2 mmol/L (3.6-5.1); Sodium* 141 mmol/L (135-149)
[2023-10-09 06:35] LABS: Creatinine* 0.9 mg/dL (0.5-1.5); Est. Creatinine Clearance* 40.63; Estimated Glomerular Filt Rate 70 ml/min
[2023-10-09 06:36] LABS: Anion Gap 7 mEq/L (7-15); Blood Urea Nitrogen* 19 mg/dL (7-30); Calcium* 9.1 mg/dL (8.4-10.6); Carbon Dioxide* 29 mmol/L (20-32); Glucose* 92 mg/dL (60-115)
[2023-10-09 06:39] LABS: C Reactive Protein* 2.1 mg/dL (0.5-1.0)
[2023-10-09 06:41] LABS: D Dimer Quantitative* 1.11 ug/ml (0.00-0.50)
[2023-10-09] MEDS: OMEPRAZOLE 20 MG CAPSULE DR PO (06:42)
--- NOTE | 2023-10-09 06:44 | PC.NURSE ---
Shift note: Pt has been in bed throughout the shift. Continue to complain of feeling tired. No abnormal behavior noted. Alert and oriented. Vitally stable. Pt had adequate sleep.
[2023-10-09] MEDS: FUROSEMIDE 20 MG TABLET PO (08:49)
[2023-10-09] MEDS: NYSTATIN POWDER 1 APPLIC TOPICAL ×2 (08:49→20:57)
[2023-10-09] MEDS: POTASSIUM CHLORIDE 10 MEQ CAPSULE ER PO (08:49)
[2023-10-09] MEDS: FERROUS SULFATE 325 MG TABLET PO (08:49)
[2023-10-09] MEDS: APIXABAN 5 MG TABLET PO ×2 (08:49→20:52)
[2023-10-09] MEDS: TRIAMCINOLONE ACETONIDE CREAM 0.1 % 1 APPLIC TOPICAL ×2 (08:50→20:56)
[2023-10-09] MEDS: ACETAMINOPHEN 325 MG TABLET 975 MG PO ×3 (08:52→20:52)
--- NOTE | 2023-10-09 10:44 | PM.IMPN1 ---
Progress Note: A&P Assessment and plan (1) Left knee pain: Problem details: - DOI: 10/04/23? - during care team conference of patient acknowledges that she has had this left knee pain since prior to being admitted to the hospital and likely when she was still at the [facility]. - continue with nonpharmacologic and pharmacologic support at this time including working with Physical therapy. She is declining buprenorphine today Status: Acute (2) Morbid obesity: Problem details: - chronic with BMI 58 - weight on discharge in 06/05 was 111.7kg; 137 on admission 10/02/23 - will increase daily dose of furosemide, continue to monitor daily weights and Strict Is/Os - Nutrition consult. 1500 calorie diet Status: Chronic (3) Debility: Problem details: - acute on chronic, worsening weakness, weight gain over the past few months Status: Acute (4) Medically noncompliant: Problem details: - left SNF AMA prior to returning to physical baseline, unclear if she fully understood her abilities as she is still unable to perform ADLs independently - history of refusing recommended medications, procedures, treatments - Now willing to consider SNF placement for long-term cares. Status: Acute (5) Bilateral leg weakness: Problem details: Still unable to stand and transfer due to pain and weakness. Patient would like to use EZ stand rather than the ceiling lift for transfers. Status: Chronic (6) Chronic acquired lymphedema: Problem details: Chronic. Scabbed wound right lower extremity, wound left lower extremity with Mepilex, weeping She has been refusing compression wraps but agrees to try them today. Continue Lasix Outpatient lymphedema clinic Status: Chronic (7) Incontinence associated dermatitis: Problem details: - Gutierrez catheter for now, along with other incontinence associated dermatitis prevention precautions - continue to try to encourage patient to help herself Status: Acute (8) Anemia: Problem details: Longstanding anemia. I am unable to find any formal evaluation for this other than iron study showing low iron levels. Patient is unable to tell me if she has been taking the iron replacement that she has been prescribed. I cannot find evidence of upper or lower endoscopy in the last 10 years. On this admission she had heme-positive stool but this was obtained while she was taking iron. Stool is not bloody or melanotic now Status: Inactive (9) Seborrheic dermatitis: Problem details: - ketoconazole 2% cream mixed with equal parts of triamcinolone 0.1% cream applied topically to affected areas twice daily Status: Acute (10) Low back pain: Problem details: - no red flag symptoms - refused CT in ED - although she remarks her back pain is better than it has been in a long time, she remains rather uncooperative - adding low-dose fentanyl transdermal patch 12 mcg q.72 hours Status: Acute (11) CKD (chronic kidney disease), stage III: Problem details: - baseline creatinine 0.8-1.2 Avoid nephrotoxic medications, continue to monitor Status: Chronic (12) Essential hypertension: Problem details: - continue furosemide for HTN and lymphedema/LE edema Status: Chronic (13) Chronic pain: Problem details: Per [facility] records: Chronic pain due leg ulcers since 2018. She thinks she has been on pain medications since 2019 for the leg ulcers. She was told today (07/22/2022) that she needs to establish care at the pain clinic. She is to notify me as soon as she gets an appointment at the pain clinic. Previously on morphine then switched to buprenorphine. Patient declining buprenorphine today. Status: Acute Plan Continue in hospital for evaluation management of weakness, pain, disability. Discharge when safe discharge plan is developed. Time Spent With Patient Total time spent: Total time spent today is 40 minutes, 30 minutes in coordination of care discussing with patient and other providers ongoing evaluation and management of pain and disability Subjective Date Seen: 10/09/23 Interval history: 67-year-old female with morbid obesity, sacral decubitus ulcer, chronic pain admitted to the hospital with back pain on October 01. She had discharge herself from a long-term facility the day prior to admission here. At discharge she did not receive a prescription for ongoing buprenorphine (Belbuca 150 mcg bid) therapy for her chronic pain. Because this he came to our emergency department for pain management. She was admitted because there were concerns about her inability to care for herself in the home. Since being hospitalized she reports ongoing pain particularly in her left knee. She has a bruise on her left knee which occurred sometime just prior to or just after admission to the hospital. She reports her knee is quite painful. Radiographs show chronic degenerative changes and osteopenia but no obvious fracture. The back pain that brought her to the hospital is better though still bothersome. She reports no dyspnea except with any activity or with anything that upsets her. No chest pain. No abdominal pain. She is reporting some diarrhea. She was treated with antibiotics for a wound infection initially. She was not felt to have a serious infection so antibiotics were discontinued. Over the last couple days she has had conversations about goals of care, plan of care and location of care. Her primary goal is to get back to independent living. The Care teams feeling is the best chance for this is to get her more involved with therapy. Due to pain her ability to tolerate therapies decreased. Because of this will put her back on buprenorphine to see if we can help her pain and more safely manage her pain as an outpatient. Will also continue to work with her on nutrition with a plan for chronic weight loss to improve her chances of regaining mobility and independence, in addition to all the other health benefits. October 08: Yesterday she was transitioned to buprenorphine 1 mg b.i.d.. This morning she is declining the buprenorphine because she thinks it is making her too sedated. She still struggling with pain control. She poorly tolerates transfers and even sitting in the chair is uncomfortable for. Knee pain is her main problem but she also reports some back pain. Nurses note superficial ulcerations/dermatitis in the perianal area. She is incontinent of soft stool. She has a catheter to help protect her skin. Exam Narrative: Exam Narrative: She is alert appears in no distress. Respirations are clear to auscultation. No wheezing rales rhonchi. Cardiovascular: S1, S2, regular rate and rhythm. No murmur gallop or rub. Abdomen: Bowel sounds active. Abdomen is soft without tenderness or mass. Extremities unchanged. Chronic venous stasis skin changes in both legs. Bruising around the left knee. Chronic edema and adiposity noted Const: Vital Signs, click to edit/add: Vital Signs - 24 hr 10/08/23 15:00 10/08/23 15:00 10/08/23 16:17 Temperature 97.3 F L Pulse Rate [Pulse Oximeter] 85 85 Respiratory Rate 20 20 20 Blood Pressure [RI GHT FOREARM] 125/59 L Pulse Oximetry 96 96 Oxygen Delivery Me thod Room Air Room Air 10/08/23 19:00 10/08/23 23:00 10/08/23 23:00 Temperature 98.2 F Pulse Rate [Pulse Oximeter] 88 88 Respiratory Rate 20 20 20 Blood Pressure [RI GHT FOREARM] 131/80 Pulse Oximetry 93 93 Oxygen Delivery Me thod Room Air Room Air 10/08/23 23:23 10/09/23 05:00 10/09/23 05:58 Temperature 98 F Pulse Rate [Pulse Oximeter] 82 Respiratory Rate 20 20 20 Blood Pressure [RI GHT FOREARM] 134/74 Pulse Oximetry 94 Oxygen Delivery Me thod Room Air 10/09/23 07:00 10/09/23 07:00 Temperature Pulse Rate [Pulse Oximeter] 88 Respiratory Rate 22 22 Blood Pressure [RI GHT FOREARM] Pulse Oximetry 94 Oxygen Delivery Me thod Room Air Documenting provider has reviewed patient's vital signs: yes Labs Labs: Laboratory Results - last 24 hr 10/09/23 06:02 WBC 4.63 RBC 3.26 L Hgb 9.2 L Hct 30.1 L MCV 92 MCH 28 MCHC 31 L RDW Coeff of Vilma 13.2 Plt Count 215 Neut % (Auto) 56.7 Lymph % (Auto) 27.4 [place] % (Auto) 9.3 Eos % (Auto) 5.6 Baso % (Auto) 0.6 Neut # (Auto) 2.62 Lymph # (Auto) 1.27 [place] # (Auto) 0.40 Eos # (Auto) 0.26 Baso # (Auto) 0.03 Abs Immat Gran (auto) 0.02 Imm/Tot Granulo (auto) 0.4 D-Dimer Quant (PE/DVT) 1.11 H Sodium 141 Potassium 4.2 Chloride 105 Carbon Dioxide 29 Anion Gap 7 BUN 19 Creatinine 0.9 Estimated Creat Clear 40.63 Estimated GFR 70 Glucose 92 Calcium 9.1 C-Reactive Protein 2.1 H
[2023-10-09] MEDS: LIDOCAINE 5% PATCH 2 PATCH TRANSDERMA (12:00)
--- NOTE | 2023-10-09 18:59 | PC.NURSE ---
End of Shift Note (): Patient A&OX3 throughout shift. Patient cooperative with cares but continues to have significant pain with transfers. At start of shift, patient states she feels woozy and her eyes feel funny. Patient thinks it is from a medication. Per MD, trial holding Buprenorphine to see if this is the cause. Dose held this morning. Patient reports anxiety throughout the day and reports panic attacks that make it hard to breathe. Patient responds well to diversion and distraction but states she just feels sad. Patient transferred to recliner today via ceiling lift and Ax3. Wound care completed to bilateral calves. Nystatin powder and Interdry applied underneath breasts and abdominal folds. Sacral Mepilex applied to sacrum. Mepilex also applied behind L) knee due to pain with transfers from sling pinching area. Patient had BM today. Gutierrez catheter patent. Patient states her pain was adequately managed with scheduled Tylenol and Lidocaine patches. Vitals within normal range today. Patient is on calorie restriction; patient's significant other brought patient fast food for lunch. Patient states she just had one taco. Discharge plan still pending; awaiting placement. Will continue to implement ongoing plan of care.
[2023-10-09] MEDS: MENTHOL 57 GM GEL 1 APPLIC TOPICAL (19:38)
--- NOTE | 2023-10-09 20:10 | PC.NURSE ---
Behavior note: At start of shift DYLAN reported to story writer that pt was complaining of KRISTAL wraps being too tight. Transportation Clerk responded to pt and noted pt to be complaining of L KRISTAL wrap being too tight. Transportation Clerk noted KRISTAL wrap was loose at top of wrap and was not felt to be tight on patient's leg. Transportation Clerk provided education of why KRISTAL wraps have been ordered though pt continued to refuse and requested story writer remove bilateral KRISTAL wraps. This task completed per pt refusal.
[2023-10-09] MEDS: DULOXETINE 30 MG CAPSULE DR 60 MG PO (20:52)
[2023-10-09] MEDS: GABAPENTIN 300 MG CAPSULE PO (20:53)
--- NOTE | 2023-10-09 22:27 | PC.NURSE ---
Pt noted to be alert & oriented x 4 and able to make needs known. VSS and pt has been afebrile. She transfers with ceiling lift and has been refusing to have KRISTAL wraps in place to bilateral lower extremities despite education provided. Pt also refusing repositioning in bed as she favors to lean toward L side. Pt reports pain to L knee decreased since KRISTAL wraps removed and PRN analgesic cream applied to area. Scheduled Tylenol given though pt refused HS Buprenorphine. Gutierrez catheter patent with light eleanor colored urine observed. Volunteer Services Director educated pt regarding drinking more water instead of Sprite noted on bedside table.
[2023-10-10] VITALS (8 sets, daily range): BP systolic 112–144; BP diastolic 83–97; PULSE 80–88; RESP 16–24; TEMP 36.3–36.4; O2SAT 95–97
[2023-10-10] MEDS: OMEPRAZOLE 20 MG CAPSULE DR PO (05:39)
--- NOTE | 2023-10-10 05:48 | PC.NURSE ---
Sometime in the middle of night after 0300, Pt Pulled out Gutierrez with balloon intact. Pt asked not to be disturbed again so she could sleep.
[2023-10-10 06:07] LABS: HCO3 VBG 30 mmol/L (21-28); PCO2 VBG 47 mmHG (40-50); PO2 VBG 42.1 mmHG (25-47); pH VBG 7.411 (7.32-7.43)
[2023-10-10 06:11] LABS: Basophils Percent Auto 0.5 % (0.0-3.0); Eosinophils Percent Auto 5.3 % (0.0-7.0); Hematocrit 30.5 % (33.0-51.0); Hemoglobin* 9.4 gm/dL (12.0-16.0); Immature Granulocytes Pct Auto 0.7 %; Lymphocytes Percent Auto 29.7 % (20-44); Mean Corpuscular HGB Conc 31 gm/dL (32-36); Mean Corpuscular Hemoglobin 28 pg (26-34); Mean Corpuscular Volume 92 fL (80-100); Monocytes Percent Auto 11.4 % (0.0-11.0); Neutrophils Percent Auto 52.4 % (42.0-72.0); Platelet Count* 215 K/uL (140-440); RDW Coefficient of Variation % 13.2 % (11.5-15.5); Red Blood Count 3.32 m/uL (4.00-5.20); White Blood Count* 4.38 K/uL (4.50-11.00)
[2023-10-10 06:12] LABS: Slide Review Reflex No
[2023-10-10] MEDS: FERROUS SULFATE 325 MG TABLET PO (08:26)
[2023-10-10] MEDS: FUROSEMIDE 20 MG TABLET PO (09:19)
[2023-10-10] MEDS: buprenorphine HCL 2 MG TAB.SUBL 1 MG SUBLINGUAL (09:19)
[2023-10-10] MEDS: NYSTATIN POWDER 1 APPLIC TOPICAL ×2 (09:20→20:13)
[2023-10-10] MEDS: POTASSIUM CHLORIDE 10 MEQ CAPSULE ER PO (09:20)
[2023-10-10] MEDS: ACETAMINOPHEN 325 MG TABLET 975 MG PO ×3 (09:20→20:11)
[2023-10-10] MEDS: APIXABAN 5 MG TABLET PO (09:20)
[2023-10-10] MEDS: TRIAMCINOLONE ACETONIDE CREAM 0.1 % 1 APPLIC TOPICAL ×2 (09:21→20:14)
--- NOTE | 2023-10-10 11:21 | PM.IMPN1 ---
Progress Note: A&P Assessment and plan (1) Left knee pain: Problem details: Longstanding fairly severe osteoarthritis of the knees. Left knee injury prior to this admission has made her left knee more painful recently. Declining use of buprenorphine. Will try lowering the dose of buprenorphine to see if she can get some pain relief Status: Acute (2) Morbid obesity: Problem details: - chronic with BMI 58 - weight on discharge in 06/05 was 111.7kg; 137 on admission 10/02/23 - will increase daily dose of furosemide, continue to monitor daily weights and Strict Is/Os - Nutrition consult. 1500 calorie diet She is cutting back on calories because of her poor appetite. I did encourage her to try to get in more protein in her diet. Status: Chronic (3) Debility: Problem details: - acute on chronic, worsening weakness, weight gain over the past few months Status: Acute (4) Medically noncompliant: Problem details: - left SNF AMA prior to returning to physical baseline, unclear if she fully understood her abilities as she is still unable to perform ADLs independently - history of refusing recommended medications, procedures, treatments - Now willing to consider SNF placement for long-term cares. Patient refusing CT imaging to evaluate multiple problems. Status: Acute (5) Bilateral leg weakness: Problem details: Still unable to stand and transfer due to pain and weakness. Patient would like to use EZ stand rather than the ceiling lift for transfers. Therapy staff have indicated that she could not demonstrate safe use of EZ stand last week Status: Chronic (6) Chronic acquired lymphedema: Problem details: Chronic bilateral lower extremity lymphedema. Compression and elevation if she will tolerated. Status: Chronic (7) Incontinence associated dermatitis: Problem details: - Gutierrez catheter for now, along with other incontinence associated dermatitis prevention precautions Status: Acute (8) Anemia: Problem details: Longstanding anemia. I am unable to find any formal evaluation for this other than iron study showing low iron levels. Patient is unable to tell me if she has been taking the iron replacement that she has been prescribed. I cannot find evidence of upper or lower endoscopy in the last 10 years. Patient has no recollection of previous evaluation. On this admission she had heme-positive stool but this was obtained while she was taking iron. Stool is not bloody or melanotic now. Hemoglobins is stable Status: Inactive (9) Seborrheic dermatitis: Problem details: - ketoconazole 2% cream mixed with equal parts of triamcinolone 0.1% cream applied topically to affected areas twice daily Status: Acute (10) Low back pain: Problem details: - no red flag symptoms - refused CT in ED - although she remarks her back pain is better than it has been in a long time, she remains rather uncooperative - adding low-dose fentanyl transdermal patch 12 mcg q.72 hours Status: Acute (11) CKD (chronic kidney disease), stage III: Problem details: - baseline creatinine 0.8-1.2 Avoid nephrotoxic medications, continue to monitor Status: Chronic (12) Essential hypertension: Problem details: - continue furosemide for HTN and lymphedema/LE edema Status: Chronic (13) Chronic pain: Problem details: Per [facility] records: Chronic pain due leg ulcers since 2018. She thinks she has been on pain medications since 2019 for the leg ulcers. She was told today (07/22/2022) that she needs to establish care at the pain clinic. She is to notify me as soon as she gets an appointment at the pain clinic. Previously on morphine then switched to buprenorphine during [facility]. She is declining buprenorphine intermittently. Patient not having significant opioid withdrawal. Status: Acute (14) Cognitive impairment: Problem details: Somerset score of 16/30 on admission May 2023. May need to reassess. This may be contributing to patient's difficulties with following through on plan of care Status: Acute (15) Anxiety: Problem details: Prominent anxiety is interfering with her ability to cooperate with plan of care. Previously had been on Ativan but she is a high risk for complications from this. Continue duloxetine Status: Acute (16) At risk for venous thromboembolism (VTE): Problem details: Due to immobility and obesity patient is at high risk for VTE. She was on apixaban but now will switch to b.i.d. Lovenox. Refused evaluation with CT scanning including PE scan to evaluate dyspnea and elevated D-dimer Status: Acute Plan Continue in hospital for management multiple chronic medical problems, ongoing rehabilitation pending safe discharge plan. Time Spent With Patient Total time spent: Total time spent today is 55 minutes, 45 minutes in coordination care and discussing with patient other providers ongoing evaluation management of disability, pain, anxiety, cognitive impairment Subjective Date Seen: 10/10/23 Interval history: 67-year-old female with morbid obesity, sacral decubitus ulcer, chronic pain admitted to the hospital with back pain on October 01. She had discharge herself from a halfway facility the day prior to admission here. At discharge she did not receive a prescription for ongoing buprenorphine (Belbuca 150 mcg bid) therapy for her chronic pain. Because this he came to our emergency department for pain management. She was admitted because there were concerns about her inability to care for herself in the home. Since being hospitalized she reports ongoing pain particularly in her left knee. She has a bruise on her left knee which occurred sometime just prior to or just after admission to the hospital. She reports her knee is quite painful. Radiographs show chronic degenerative changes and osteopenia but no obvious fracture. The back pain that brought her to the hospital is better though still bothersome. She reports no dyspnea except with any activity or with anything that upsets her. No chest pain. No abdominal pain. She is reporting some diarrhea. She was treated with antibiotics for a wound infection initially. She was not felt to have a serious infection so antibiotics were discontinued. Over the last couple days she has had conversations about goals of care, plan of care and location of care. Her primary goal is to get back to independent living. The Care teams feeling is the best chance for this is to get her more involved with therapy. Due to pain her ability to tolerate therapies decreased. Because of this will put her back on buprenorphine to see if we can help her pain and more safely manage her pain as an outpatient. Will also continue to work with her on nutrition with a plan for chronic weight loss to improve her chances of regaining mobility and independence, in addition to all the other health benefits. October 08: Yesterday she was transitioned to buprenorphine 1 mg b.i.d.. This morning she is declining the buprenorphine because she thinks it is making her too sedated. She still struggling with pain control. She poorly tolerates transfers and even sitting in the chair is uncomfortable for. Knee pain is her main problem but she also reports some back pain. Nurses note superficial ulcerations/dermatitis in the perianal area. She is incontinent of soft stool. She has a catheter to help protect her skin. October 09: Patient reports generally not feeling well. She reports she is very anxious, dyspneic, nauseated. She reports a poor appetite. She reports a lot of pain with transfers using the ceiling lift and requests using an EZ stand for transfers. Therapy staff have previously indicated that she was unable to do this safely so that needs to be re-evaluated. She is having no fever. During the night her catheter came out. Prior to this admission she was incontinent of urine and catheter was replaced because she has a perineal dermatitis. Catheter was put back in. Exam Narrative: Exam Narrative: She is alert and appears in no distress. Breathing is unlabored on room air. Small airway. Respirations are clear to auscultation. Cardiovascular: S1, S2, regular rate and rhythm. Abdomen is soft without tenderness or mass. Bowel sounds are present. Extremities with chronic venous stasis skin changes. Bruising is maturing anterior to the left knee. Skin fold superficial ulcer behind the left knee. Const: Vital Signs, click to edit/add: Vital Signs - 24 hr 10/09/23 13:00 10/09/23 15:00 10/09/23 15:00 Temperature 97.8 F Pulse Rate [Pulse Oximeter] 90 90 Respiratory Rate 22 22 22 Blood Pressure [Le ft Forearm] Blood Pressure [RI GHT FOREARM] 115/75 Pulse Oximetry 95 95 Oxygen Delivery Me thod Room Air Room Air 10/09/23 21:08 10/09/23 23:00 10/09/23 23:00 Temperature 97.3 F L Pulse Rate [Pulse Oximeter] 88 88 Respiratory Rate 20 18 18 Blood Pressure [Le ft Forearm] Blood Pressure [RI GHT FOREARM] 130/73 Pulse Oximetry 95 95 Oxygen Delivery Me thod Room Air Room Air 10/09/23 23:19 10/10/23 02:33 10/10/23 04:41 Temperature 97.3 F L Pulse Rate [Pulse Oximeter] Respiratory Rate 18 16 Blood Pressure [Le ft Forearm] Blood Pressure [RI GHT FOREARM] Pulse Oximetry Oxygen Delivery Me thod 10/10/23 04:41 10/10/23 09:16 10/10/23 09:16 Temperature Pulse Rate [Pulse Oximeter] 80 Respiratory Rate 16 24 Blood Pressure [Le ft Forearm] Blood Pressure [RI GHT FOREARM] Pulse Oximetry 97 Oxygen Delivery Nj thod Room Air 10/10/23 09:16 Temperature 97.6 F Pulse Rate [Pulse Oximeter] 80 Respiratory Rate 24 Blood Pressure [Le ft Forearm] 144/83 H Blood Pressure [RI GHT FOREARM] Pulse Oximetry 97 Oxygen Delivery Me thod Room Air Documenting provider has reviewed patient's vital signs: yes Labs Labs: Laboratory Results - last 24 hr 10/10/23 05:35 WBC 4.38 L RBC 3.32 L Hgb 9.4 L Hct 30.5 L MCV 92 MCH 28 MCHC 31 L RDW Coeff of Vilma 13.2 Plt Count 215 Neut % (Auto) 52.4 Lymph % (Auto) 29.7 Taliaferro % (Auto) 11.4 H Eos % (Auto) 5.3 Baso % (Auto) 0.5 Neut # (Auto) 2.30 Lymph # (Auto) 1.30 Taliaferro # (Auto) 0.50 Eos # (Auto) 0.20 Baso # (Auto) 0.00 Abs Immat Gran (auto) 0.00 Imm/Tot Granulo (auto) 0.7 VBG pH 7.411 VBG pCO2 47 VBG pO2 42.1 VBG HCO3 30 H
[2023-10-10] MEDS: LIDOCAINE 5% PATCH 2 PATCH TRANSDERMA (13:25)
--- NOTE | 2023-10-10 18:18 | PC.NURSE ---
End of Shift: Pt cooperative and more pleasant than usual. Pt more drowsy than usual today. Pt vitally stable, lung sounds clear, BS active. NO IV. Pt reported pain6/10, only scheduled Tylenol given. Pt ceiling lift for transfers, and was up to the chair for a couple hours. New covarrubias inserted, intact and draining, Pt had 1 incont. BM. Wound care and bed bath performed. Two Mepilex on LLE and one RLE, c/d/i. There is currently no Mepilex on the Pt sacrum. One lidocaine patch on the left knee and one mid lower back. Pt tolerating regular diet well.
[2023-10-10] MEDS: DULOXETINE 30 MG CAPSULE DR 60 MG PO (20:12)
[2023-10-10] MEDS: GABAPENTIN 300 MG CAPSULE PO (20:13)
[2023-10-10] MEDS: ENOXAPARIN 30 MG/0.3ML INJ SUBCUT (20:15)
[2023-10-11 04:58] VITALS: RESP 18
--- NOTE | 2023-10-11 05:02 | PC.NURSE ---
Pt rested well this night. VSS. Still refusing to be Repositoned. Refusing some meds.
[2023-10-11] MEDS: OMEPRAZOLE 20 MG CAPSULE DR PO (06:29)
[2023-10-11 07:00] VITALS: BP 165/88; PULSE 82; PULSE 88; RESP 18; TEMP 36.4; O2SAT 97
[2023-10-11] MEDS: ENOXAPARIN 30 MG/0.3ML INJ SUBCUT (08:19)
[2023-10-11] MEDS: buprenorphine HCL 2 MG TAB.SUBL 0.5 MG SUBLINGUAL (08:20)
[2023-10-11] MEDS: POTASSIUM CHLORIDE 10 MEQ CAPSULE ER PO (08:20)
[2023-10-11] MEDS: FERROUS SULFATE 325 MG TABLET PO (08:21)
[2023-10-11] MEDS: FUROSEMIDE 20 MG TABLET PO (08:21)
[2023-10-11] MEDS: ACETAMINOPHEN 325 MG TABLET 975 MG PO ×3 (08:21→21:10)
[2023-10-11] MEDS: NYSTATIN POWDER 1 APPLIC TOPICAL ×2 (08:23→21:09)
[2023-10-11] MEDS: TRIAMCINOLONE ACETONIDE CREAM 0.1 % 1 APPLIC TOPICAL ×2 (08:23→21:09)
[2023-10-11 10:17] VITALS: BMI 56.7
[2023-10-11] MEDS: LIDOCAINE 5% PATCH 2 PATCH TRANSDERMA (12:24)
--- NOTE | 2023-10-11 13:04 | P.IMPN_ITS ---
Progress Note: A&P Assessment and plan (1) Left knee pain: Problem details: Longstanding fairly severe osteoarthritis of the knees. Left knee injury prior to this admission has made her left knee more painful recently. Declining use of buprenorphine. Buprenorphine discontinued October 10 because of concerns that it is causing sedation and not providing sufficient pain relief. Cautiously will try low-dose Naprosyn during the day. Caution around history of gastrointestinal bleeding and chronic anemia. Status: Acute (2) Morbid obesity: Problem details: - chronic with BMI 58 - weight on discharge in 06/05 was 111.7kg; 137 on admission 10/02/23 - will increase daily dose of furosemide, continue to monitor daily weights and Strict Is/Os - Nutrition consult. 1500 calorie diet She is cutting back on calories because of her poor appetite. I did encourage her to try to get in more protein in her diet. Status: Chronic (3) Debility: Problem details: - acute on chronic, worsening weakness, weight gain over the past few months. We need to continue to work through her anxiety and resistance to therapy Status: Acute (4) Medically noncompliant: Problem details: - left SNF AMA prior to returning to physical baseline, unclear if she fully understood her abilities as she is still unable to perform ADLs independently - history of refusing recommended medications, procedures, treatments - Now willing to consider SNF placement for long-term cares. Patient refusing CT imaging to evaluate multiple problems. Status: Acute (5) Bilateral leg weakness: Problem details: Still unable to stand and transfer due to pain and weakness. Patient would like to use EZ stand rather than the ceiling lift for transfers. Therapy staff have indicated that she could not demonstrate safe use of EZ stand last week. Will attempt to get her to stand and pivot to transfer from bed to chair. Status: Chronic (6) Chronic acquired lymphedema: Problem details: Chronic bilateral lower extremity lymphedema. Compression and elevation if she will tolerated. Status: Chronic (7) Incontinence associated dermatitis: Problem details: - Gutierrez catheter for now, along with other incontinence associated dermatitis prevention precautions Status: Acute (8) Anemia: Problem details: Longstanding anemia. I am unable to find any formal evaluation for this other than iron study showing low iron levels. Patient is unable to tell me if she has been taking the iron replacement that she has been prescribed. I cannot find evidence of upper or lower endoscopy in the last 10 years. Patient has no recollection of previous evaluation. On this admission she had heme-positive stool but this was obtained while she was taking iron. Stool is not bloody or melanotic now. Hemoglobins is stable. Continue to monitor now that I have started her on Naprosyn 250 mg once a day Status: Inactive (9) Seborrheic dermatitis: Problem details: - ketoconazole 2% cream mixed with equal parts of triamcinolone 0.1% cream applied topically to affected areas twice daily Status: Acute (10) Low back pain: Problem details: - no red flag symptoms - refused CT in ED - although she remarks her back pain is better than it has been in a long time, she remains rather uncooperative -will add Naprosyn 250 mg once a day. Stop opioids Status: Acute (11) CKD (chronic kidney disease), stage III: Problem details: - baseline creatinine 0.8-1.2 Avoid nephrotoxic medications, continue to monitor as I add Naprosyn 250 mg once a day Status: Chronic (12) Essential hypertension: Problem details: - continue furosemide for HTN and lymphedema/LE edema Status: Chronic (13) Chronic pain: Problem details: Per [facility] records: Chronic pain due leg ulcers since 2018. She thinks she has been on pain medications since 2019 for the leg ulcers. She was told today (07/22/2022) that she needs to establish care at the pain clinic. She is to notify me as soon as she gets an appointment at the pain clinic. Previously on morphine then switched to buprenorphine during recent [facility] stay. She is declining buprenorphine intermittently. Patient not having significant opioid withdrawal. Status: Acute (14) Cognitive impairment: Problem details: Adams score of 16/30 on admission May 2023. May need to reassess. This may be contributing to patient's difficulties with following through on plan of care Status: Acute (15) Anxiety: Problem details: Prominent anxiety is interfering with her ability to cooperate with plan of care. Previously had been on Ativan but she is a high risk for complications from this. Continue duloxetine. Status: Acute (16) At risk for venous thromboembolism (VTE): Problem details: Due to immobility and obesity patient is at high risk for VTE. She was on apixaban. Now switched to enoxaparin. Continue to monitor hemoglobin with chronic anemia and history of GI bleeding. Refused evaluation with CT scanning including PE scan to evaluate dyspnea and elevated D-dimer Status: Acute (17) Fatigue: Problem details: Patient continues report prominent fatigue and sleepiness which she thinks may be due to medications. I have adjusted the dose of her buprenorphine without benefit. Lorazepam and hydroxyzine were stopped. Will reduce gabapentin modestly. Continue duloxetine. Status: Acute Plan Continue in hospital for ongoing physical therapy, management of pain and anxiety and monitoring of chronic medical problems. Time Spent With Patient Total time spent: Total time spent today is 60 minutes, 45 minutes in coordination of care discussing with patient and other providers management of pain and anxiety and strategy for therapy to improve mobility Subjective Date Seen: 10/11/23 Interval history: 67-year-old female with morbid obesity, sacral decubitus ulcer, chronic pain admitted to the hospital with back pain on October 01. She had discharge herself from a care home facility the day prior to admission here. At discharge she did not receive a prescription for ongoing buprenorphine (Belbuca 150 mcg bid) therapy for her chronic pain. Because this he came to our [facility] department for pain management. She was admitted because there were concerns about her inability to care for herself in the home. Since being hospitalized she reports ongoing pain particularly in her left knee. She has a bruise on her left knee which occurred sometime just prior to or just after admission to the hospital. She reports her knee is quite painful. Radiographs show chronic degenerative changes and osteopenia but no obvious fracture. The back pain that brought her to the hospital is better though still bothersome. She reports no dyspnea except with any activity or with anything that upsets her. No chest pain. No abdominal pain. She is reporting some diarrhea. She was treated with antibiotics for a wound infection initially. She was not felt to have a serious infection so antibiotics were discontinued. October 07: Over the last couple days she has had conversations about goals of care, plan of care and location of care. Her primary goal is to get back to independent living. The Care teams feeling is the best chance for this is to get her more involved with therapy. Due to pain her ability to tolerate therapies decreased. Because of this will put her back on buprenorphine to see if we can help her pain and more safely manage her pain as an outpatient. Will also continue to work with her on nutrition with a plan for chronic weight loss to improve her chances of regaining mobility and independence, in addition to all the other health benefits. October 08: Yesterday she was transitioned to buprenorphine 1 mg b.i.d.. This morning she is declining the buprenorphine because she thinks it is making her too sedated. She still struggling with pain control. She poorly tolerates transfers and even sitting in the chair is uncomfortable for. Knee pain is her main problem but she also reports some back pain. Nurses note superficial ulcerations/dermatitis in the perianal area. She is incontinent of soft stool. She has a catheter to help protect her skin. October 09: Patient reports generally not feeling well. She reports she is very anxious, dyspneic, nauseated. She reports a poor appetite. She reports a lot of pain with transfers using the ceiling lift and requests using an EZ stand for transfers. Therapy staff have previously indicated that she was unable to do this safely so that needs to be re-evaluated. She is having no fever. During the night her catheter came out. Prior to this admission she was incontinent of urine and catheter was replaced because she has a perineal dermatitis. Catheter was put back in. October 10: Patient reports still feeling quite fatigued and tired. She is requesting reduction and medications that could be having this effect on her. She is also reporting that weight-bearing with physical therapy is quite painful in her left knee. We again reviewed that she has severe osteoarthritis in that left knee and if her health status was improved she would be getting a knee replacement. She is resistant to following direction for use of the EZ stand so therapy has just recommend that we stand her at the bedside and have her transfer to a wheelchair. She was resistant to that plan today. Will try again tomorrow. Exam Narrative: Exam Narrative: She is alert and appears in moderate distress as nursing staff attempt to get her to stand at the bedside. She refuses to even stand up for fear that she cannot stand at the bedside. She remains in distress as they choose to use the ceiling lift to transfer her to the wheelchair. During this time she reports severe anxiety, dyspnea and is quite agitated. When she is in the chair her symptoms all resolve and she calms down. Breathing is unlabored. Skin of her back and perianal areas inspected in his in fairly good shape. Const: Vital Signs, click to edit/add: Vital Signs - 24 hr 10/10/23 15:00 10/10/23 15:00 10/10/23 15:00 Temperature 97.6 F Pulse Rate [Pulse Oximeter] 82 82 Respiratory Rate 16 16 16 Blood Pressure [Le ft Forearm] 112/97 H Pulse Oximetry 95 95 Oxygen Delivery Me thod Room Air Room Air 10/10/23 19:07 10/10/23 20:11 10/10/23 22:28 Temperature 97.6 F 97.6 F Pulse Rate [Pulse Oximeter] 88 88 Respiratory Rate 18 18 Blood Pressure [Le ft Forearm] Pulse Oximetry [address] thod Room Air 10/10/23 22:28 10/10/23 22:30 10/11/23 04:58 Temperature Pulse Rate [Pulse Oximeter] Respiratory Rate 18 18 18 Blood Pressure [Le ft Forearm] Pulse Oximetry [address] thod Room Air 10/11/23 07:00 10/11/23 07:00 10/11/23 07:00 Temperature 97.5 F L Pulse Rate [Pulse Oximeter] 82 88 Respiratory Rate 18 18 18 Blood Pressure [Le ft Forearm] 165/88 H Pulse Oximetry [address] thod Room Air Room Air Documenting provider has reviewed patient's vital signs: yes
[2023-10-11 15:00] VITALS: BP 146/84; PULSE 89; RESP 20; TEMP 36.3; O2SAT 95
--- NOTE | 2023-10-11 18:13 | PC.SOCIAL ---
Discharge planning- Contacted the following SNF's for possible short-term rehab placement. 1. [facility]- Phone call to admissions at [phone] to follow up on sent referral. Referral was not received by admissions. Faxed referral to [phone] for review. 2. [facility] ([place])- Phone call to admissions at [phone]. Left a voicemail inquiring on fax that was previously sent. 3. [facility])- Phone call to admissions at [phone] to follow up on referral. Request to re-fax information. Faxed referral to [phone]. 4. [facility]- Phone call to admissions at [phone] to follow up on referral previously sent. Admissions informs that they are still assessing patient. 5. [facility]- Phone call to admissions at [phone]. Left voicemail inquiring on bed availability and faxed referral for review to [phone]. 6. [facility])- Phone call to admissions at [phone]. Left voicemail inquiring on bed availability and faxed referral for review to [phone]. 7. [facility] ([place])- Phone call to admissions at [phone]. Admissions informs there will be an opening on Wed/Th. this week. Faxed referral to [phone]. 8. [facility]- Phone call to admissions at [phone]. Left voicemail inquiring on bed availability and faxed referral for review to [phone]. 9. [facility]- Phone call to admissions at [phone]. Left voicemail inquiring on bed availability. 10. [facility]- Phone call to admissions at [phone]. Left voicemail with Elysia in admissions inquiring on bed availability. 11. [facility] ([place])- Phone call to admissions at [phone]. Left voicemail inquiring on bed availability and faxed referral for review to [phone]. 12. [facility] ([place])- Phone call to admissions at [phone]. There is an opening, faxed referral to [phone]. 13. [facility]- Phone call to admissions at [phone]. Left voicemail inquiring on bed availability. 14. [facility] ([place])- Phone call to admissions at [phone]. Left voicemail inquiring on bed availability and faxed facesheet only (per voicemail) to [phone]. 15. [facility]- Phone call to admissions at [phone]. Left voicemail inquiring on bed availability and faxed referral for review to [phone]. 16. [facility] ([place])- Phone call to admissions at [phone]. Left voicemail inquiring on bed availability and faxed referral for review to [phone]. 17. [facility] ([place])- Phone call to admissions at [phone]. Admissions informs they will have openings this week. Faxed referral to [phone]. 18. [facility] ([place])- Phone call to admissions at [phone]. They will have openings this week. Faxed referral to [phone]. 19. [facility]- Phone call to admissions at [phone]. Admissions informs they have openings. Faxed referral to [phone]. 20. [facility] ([place])- Phone call to admissions at [phone]. Left voicemail inquiring on bed availability and faxed referral for review to [phone]. Received a phone call to from Kobe in admissions from [facility] at [phone]. Kobe informs they can accept pt for admission for tomorrow in a shared room. Informed Kobe that this worker will discuss with pt and provide an update to admissions. Received a phone call back from Kobe approximately 10 minutes later informing that Nursing is requesting an assessment and pictures on patients wounds. Informed Kobe that this worker will get information and fax to facility. Nursing will need to review and determine if they can meet pt's wound care needs. Provide update to charge nurse. Charge nurse will get pictures and assessment completed this evening and fax to [facility]. Provided nursing with the fax number to facility. Met with pt and provided update on information received from [facility]. Pt states that she will not go to the facility because it is too far away. Pt is [place] willing [place] due to pt's bad experience from last facility. Pt asks questions about the [facility] in [place]. Informed pt that the [facility] has declined pt for admission. Informed pt that the only SNF's that are currently reviewing pt are [place]. Pt is not agreeable to [place] and pt states that pt's family will not allow her to go [place]. Pt states that she has a niece that lives two doors away and is a PAINTER HELPER that will assist in taking care of her if she goes home. Pt states that she has a neighbor and boyfriend that can also assist her at home. Pt will discuss information with her family rafaela. Pt states she wants to return home. Informed pt that it will need to be a safe discharge plan and pt will need to get the appropriate assistance needed in the home. This worker informed pt that this worker will meet with pt in the morning to see what her thoughts are regarding her discharge plans. Provided update to charge nurse, , and hospitality house supervisor. Social work will continue to follow up on an appropriate discharge plan.
--- NOTE | 2023-10-11 18:24 | PC.NURSE ---
End of Shift: Patient cooperated with cares today, A&O. VSS, afebrile, SpO2 maintained above 90% on RA. Patient reports being extra ?sleepy, and SOB today?, MD notified. Patient reports pain on left knee and lower back, rating pain on 8/10 scale, managed with scheduled Tylenol and lidocaine patches. Wound care completed on wound on left calf, and right calf, covered with mepilex. ?
[2023-10-11] MEDS: GABAPENTIN 100 MG CAPSULE 200 MG PO (21:08)
[2023-10-11] MEDS: ENOXAPARIN 40 MG/0.4 ML INJ SUBCUT (21:08)
[2023-10-11] MEDS: DULOXETINE 30 MG CAPSULE DR 60 MG PO (21:08)
[2023-10-11 23:00] VITALS: PULSE 89; RESP 20
[2023-10-11 23:30] VITALS: RESP 20
[2023-10-12 06:00] VITALS: RESP 20
[2023-10-12] MEDS: OMEPRAZOLE 20 MG CAPSULE DR PO (06:03)
[2023-10-12 06:36] LABS: Hemoglobin* 9.5 gm/dL (12.0-16.0)
[2023-10-12 08:14] VITALS: BP 151/84; PULSE 90; RESP 20; TEMP 37; O2SAT 94
[2023-10-12] MEDS: FERROUS SULFATE 325 MG TABLET PO (08:17)
[2023-10-12] MEDS: ACETAMINOPHEN 325 MG TABLET 975 MG PO (09:33)
[2023-10-12] MEDS: POTASSIUM CHLORIDE 10 MEQ CAPSULE ER PO (09:33)
[2023-10-12] MEDS: NAPROXEN 250 MG TABLET PO (09:33)
[2023-10-12] MEDS: FUROSEMIDE 20 MG TABLET PO (09:34)
[2023-10-12] MEDS: TRIAMCINOLONE ACETONIDE CREAM 0.1 % 1 APPLIC TOPICAL (09:35)
[2023-10-12] MEDS: NYSTATIN POWDER 1 APPLIC TOPICAL (09:35)
--- NOTE | 2023-10-12 10:43 | PC.SOCIAL ---
Discharge planning- Follow up phone call to Kobe, director of admissions for [facility], at [phone] to follow up on wound assessment and pictures that were sent for review. Kobe informs that nursing has reviewed and they are still willing to accept pt for admission for today before 6:00 pm. [facility] in [place]. Nurse to nurse phone number is [phone]. Facility address is [address] [place] [address]. [phone]. Provided information to charge nurse. Met with pt and discussed discharge plans. Provided pt with a copy of medicare rights form to provide information on how to appeal hospital discharge. Pt is willing to go to SNF today and is hopeful that she can get into [facility] in the near future. Informed pt that [facility] is looking for pt to be compliant with medical recommendations and nursing interventions. Pt will discharge via non-emergency EMS at 10:30 am. Provided update to [facility]. Preadmission screen completed. Confirmation #[id number]. Faxed orders and preadmission screen to [facility] at [phone]. Social work will follow up as needed.
--- NOTE | 2023-10-12 10:51 | PC.NURSE ---
Discharge: Pt cooperative with cares today. Pt vitally stable, lung sounds clear, BS active. NO IV. Pain reported 6/10, scheduled Tylenol and Naproxen given once. Pt ceiling lift to wheelchair. Pt sat is wheelchair for breakfast. Wound cares performed, 1 Mepilex on bottom, 1 Mepilex on right calf, and 2 Mepilex on LLE, c/d/i. Gutierrez intact and draining. Nurse to nurse report given to Tanesha in [place]. Pt signed discharge form. Pt left floor by EMS at 1035 to SNF.
--- NOTE | 2023-10-12 12:19 | PM.DS1 ---
DS: Providers Provider Date Seen: 10/12/23 Date of admission: 10/05/23 09:51 Primary care physician: Hill Broderick MD Admitting Clinician: Daysi Ventura MD Attending Physician on discharge: Joe Carcamo MD Date of Discharge: 10/12/23 DS: Diagnosis Discharge Diagnosis (1) Left knee pain: Status: Acute Problem details: Longstanding fairly severe osteoarthritis of the knees. Left knee injury prior to this admission has made her left knee more painful recently. Declining use of buprenorphine. Buprenorphine discontinued October 10 because of concerns that it is causing sedation and not providing sufficient pain relief. Cautiously will try low-dose Naprosyn during the day. Caution around history of gastrointestinal bleeding and chronic anemia. (2) Morbid obesity: Status: Chronic Problem details: - chronic with BMI 58 - weight on discharge in 06/05 was 111.7kg; 137 on admission 10/02/23 - will increase daily dose of furosemide, continue to monitor daily weights and Strict Is/Os - Nutrition consult. 1500 calorie diet She is cutting back on calories because of her poor appetite. I did encourage her to try to get in more protein in her diet. (3) Debility: Status: Acute Problem details: - acute on chronic, worsening weakness, weight gain over the past few months. We need to continue to work through her anxiety and resistance to therapy (4) Medically noncompliant: Status: Acute Problem details: - left SNF AMA prior to returning to physical baseline, unclear if she fully understood her abilities as she is still unable to perform ADLs independently - history of refusing recommended medications, procedures, treatments - Now willing to consider SNF placement for long-term cares. Patient refusing CT imaging to evaluate multiple problems. (5) Bilateral leg weakness: Status: Chronic Problem details: Still unable to stand and transfer due to pain and weakness. Patient would like to use EZ stand rather than the ceiling lift for transfers. Therapy staff have indicated that she could not demonstrate safe use of EZ stand last week. Will attempt to get her to stand and pivot to transfer from bed to chair. (6) Chronic acquired lymphedema: Status: Chronic Problem details: Chronic bilateral lower extremity lymphedema. Compression and elevation if she will tolerated. (7) Incontinence associated dermatitis: Status: Acute Problem details: - Gutierrez catheter for now, along with other incontinence associated dermatitis prevention precautions (8) Anemia: Status: Inactive Problem details: Longstanding anemia. I am unable to find any formal evaluation for this other than iron study showing low iron levels. Patient is unable to tell me if she has been taking the iron replacement that she has been prescribed. I cannot find evidence of upper or lower endoscopy in the last 10 years. Patient has no recollection of previous evaluation. On this admission she had heme-positive stool but this was obtained while she was taking iron. Stool is not bloody or melanotic now. Hemoglobins is stable. Continue to monitor now that I have started her on Naprosyn 250 mg once a day. Consider outpatient endoscopy if clinically appropriate and patient can agree. (9) Seborrheic dermatitis: Status: Acute Problem details: - ketoconazole 2% cream mixed with equal parts of triamcinolone 0.1% cream applied topically to affected areas twice daily (10) Low back pain: Status: Acute Problem details: - no red flag symptoms - refused CT in ED - although she remarks her back pain is better than it has been in a long time, she remains rather uncooperative -will add Naprosyn 250 mg once a day. Stop opioids (11) CKD (chronic kidney disease), stage III: Status: Chronic Problem details: - baseline creatinine 0.8-1.2 Avoid nephrotoxic medications, continue to monitor as I add Naprosyn 250 mg once a day (12) Essential hypertension: Status: Chronic Problem details: - continue furosemide for HTN and lymphedema/LE edema (13) Chronic pain: Status: Acute Problem details: Per [facility] records: Chronic pain due leg ulcers since 2018. She thinks she has been on pain medications since 2019 for the leg ulcers. Previously on morphine then switched to buprenorphine during recent senior living stay. She is declining buprenorphine intermittently in the hospital. Eventually buprenorphine discontinued. If patient is having uncontrolled pain problems consider non opioid treatment or as a last resort restarting buprenorphine rather than pure opioid agonists. Patient not having significant opioid withdrawal during this hospital stay. (14) Cognitive impairment: Status: Acute Problem details: Morrill score of 16/30 on admission May 2023. May need to reassess. This may be contributing to patient's difficulties with following through on plan of care (15) Anxiety: Status: Acute Problem details: Prominent anxiety is interfering with her ability to cooperate with plan of care. Previously had been on Ativan but she is a high risk for complications from this. Continue duloxetine. (16) At risk for venous thromboembolism (VTE): Status: Acute Problem details: Due to immobility and obesity patient is at high risk for VTE. She was on apixaban. Now switched to enoxaparin. Continue to monitor hemoglobin with chronic anemia and history of GI bleeding. Refused evaluation with CT scanning including PE scan to evaluate dyspnea and elevated D-dimer (17) Fatigue: Status: Acute Problem details: Patient continues report prominent fatigue and sleepiness which she thinks may be due to medications. I have adjusted the dose of her buprenorphine without benefit. Lorazepam and hydroxyzine were stopped. Will reduce gabapentin modestly. Continue duloxetine. DS: Summary Hospital Course Hospital Course: 67-year-old female with morbid obesity, sacral decubitus ulcer, chronic pain admitted to the hospital with back pain on October 01. She had discharge herself from a senior care facility the day prior to admission here. At discharge she did not receive a prescription for ongoing buprenorphine (Belbuca 150 mcg bid) therapy for her chronic pain. Because this he came to our emergency department for pain management. She was admitted because there were concerns about her inability to care for herself in the home. Since being hospitalized she reports ongoing pain particularly in her left knee. She has a bruise on her left knee which occurred sometime just prior to or just after admission to the hospital. She reports her knee is quite painful. Radiographs show chronic degenerative changes and osteopenia but no obvious fracture. The back pain that brought her to the hospital is better though still bothersome. She reports no dyspnea except with any activity or with anything that upsets her. No chest pain. No abdominal pain. She is reporting some diarrhea. She was treated with antibiotics for a wound infection initially. She was not felt to have a serious infection so antibiotics were discontinued. She had previously been on Belbuca/buprenorphine. This was discontinued when she came to the hospital. She did not have significant opioid withdrawal. Attempts to restart buprenorphine did not leave today any improvement in symptoms and patient felt that she was getting excessive sedation from it so it was discontinued without adverse reaction. Status at Discharge Functional status at discharge: bed bound Overall status at discharge: other (Patient is bedbound. The goal is to get her to stand and transfer bed to chair. She has found this to be painful and also she becomes very anxious in the process. For now she is using a ceiling lift for bed to chair transfers) Time Spent with Patient Time attestation: Total time spent providing and/or coordinating discharge services: Time spent: Greater than 30 minutes Exam Narrative: Exam Narrative: She is alert and appears in no distress. Breathing is unlabored. She has no new concerns today. We discussed in some detail the plan of care with transfer to a senior care facility [facility]. She is unhappy with this plan but has no reasonable alternative proposal. She is unable to stay in our hospital indefinitely for ongoing care. Const: Vital Signs, click to edit/add: Vital Signs - 24 hr 10/11/23 15:00 10/11/23 15:00 10/11/23 15:00 Temperature 97.4 F L Pulse Rate [Pulse Oximeter] 89 89 Respiratory Rate 20 20 20 Blood Pressure [Le ft Forearm] Blood Pressure [RI GHT FOREARM] 146/84 H Pulse Oximetry 95 95 Oxygen Delivery Me thod Room Air Room Air 10/11/23 23:00 10/11/23 23:00 10/11/23 23:30 Temperature Pulse Rate [Pulse Oximeter] 89 Respiratory Rate 20 20 20 Blood Pressure [Le ft Forearm] Blood Pressure [RI GHT FOREARM] Pulse Oximetry Oxygen Delivery Me thod Room Air 10/12/23 06:00 10/12/23 08:14 10/12/23 08:14 Temperature Pulse Rate [Pulse Oximeter] 90 Respiratory Rate 20 20 20 Blood Pressure [Le ft Forearm] Blood Pressure [RI GHT FOREARM] Pulse Oximetry 94 Oxygen Delivery Me thod Room Air 10/12/23 08:14 Temperature 98.6 F Pulse Rate [Pulse Oximeter] 90 Respiratory Rate 20 Blood Pressure [Le ft Forearm] 151/84 H Blood Pressure [RI GHT FOREARM] Pulse Oximetry 94 Oxygen Delivery Me thod Room Air Documenting provider has reviewed patient's vital signs: yes DS: Data Data Completed and Pending Completed studies during hospitalization: Procedures Change Bandage on Back (05/14/23) Change Bandage on Left Lower Extremity (05/14/23) Change Bandage on Right Lower Extremity (05/14/23) Irrigation of Skin and Mucous Membranes using Irrigating Substance (05/14/23) Labs on day of discharge: Labs from last 24 hours 10/12/23 06:08 Hgb 9.5 L Discharge Plan Discharge Disposition: Xfer [facility] Date of Admission: 10/05/23 09:51 Attending Provider on Discharge: Du Carcamo Consulting Providers: Ino Moss Primary Care Provider: Hill Broderick Discharge Medications: New celecoxib [Celebrex] 100 mg capsule 100 mg PO DAILY Qty: 30 0RF lidocaine 5 % adhesive patch,medicated 2 patch topical DAILY Qty: 60 0RF Rx Instructions: leave on most painful area for up to 12 hrs Continued potassium chloride 10 mEq tablet extended release 10 meq PO DAILY furosemide 20 mg tablet 20 mg PO DAILY ferrous sulfate 325 mg (65 mg iron) tablet,delayed release (DR/EC) 325 mg PO DAILY ondansetron 4 mg tablet,disintegrating 4 mg PO Q8H PRN acetaminophen 500 mg capsule 1,000 mg PO TID PRN cholecalciferol (vitamin D3) [Weekly-D] 1,250 mcg (50,000 unit) capsule 1,250 mcg PO 2XW duloxetine 60 mg capsule,delayed release(DR/EC) 60 mg PO DAILY Rx Instructions: START THIS DOSE 10/08 Lactobacillus acidophilus 0.5 mg (100 million cell) Tablet 0.5 mg PO DAILY hydrocortisone 1 % cream 1 applic topical BID Rx Instructions: APPLY TO RASH ON FACE Santyl 250 unit/gram ointment 1 applic topical DAILY Rx Instructions: apply to bilateral calfs diclofenac sodium 1 % gel 2 g topical BID Rx Instructions: apply to mid to low back zinc oxide Ointment 1 applic topical BID Rx Instructions: for incontinence dermatitis nystatin 100,000 unit/gram Powder 1 applic topical BID 14 Days Qty: 30 0RF Discontinued buprenorphine HCl [Belbuca] 150 mcg film 150 mcg BUCCAL BID duloxetine 30 mg capsule,delayed release(DR/EC) 30 mg PO DAILY meloxicam submicronized 5 mg capsule 10 mg PO DAILY Discharge Orders: Discharge Order (Routine); Ordered 10/12/23 Ordered By: Du Carcamo Additional Instructions: needs Peg lift Activity Level: Up with assist Discharge Diet: Regular Follow Up Appointments: Hill Broderick MD [Primary Care Provider] - Forms: [facility] Info Instructions Admit to: SNF Discharge Potential: Fair Length of Stay: 30-90 days Can use facility standing orders?: Yes Code Status: Full Code Rehab Potential: Fair Therapy: Physical Therapy and Occupational Therapy Therapy Orders: Evaluate and Treat Urinary Catheter: Yes Lab Orders: CBC and basic metabolic panel in one week
== END 2023-10-12 10:35 | DRG 92 ==
LOC: ED 14:58 → MEDSURG 17:34
PROVIDERS: Family Medicine; Internal Medicine; Admitting Provider Family Medicine; Emergency Provider Emergency Medicine; PCP Family Medicine; Visit Provider Family Medicine
DX: G89.29 Other chronic pain (principal); K92.2 Gastrointestinal hemorrhage, unspecified; L03.115 Cellulitis of right lower limb; Z68.43 Body mass index [BMI] 50.0-59.9, adult; M25.562 Pain in left knee; M54.50 Low back pain, unspecified; I12.9 Hypertensive chronic kidney disease with stage 1 through stage 4 chronic kidney disease, or unspecified chronic kidney disease; N18.30 Chronic kidney disease, stage 3 unspecified; Z87.891 Personal history of nicotine dependence; F11.90 Opioid use, unspecified, uncomplicated; E66.01 Morbid (severe) obesity due to excess calories; Z91.199 Patient's noncompliance with other medical treatment and regimen due to unspecified reason; D50.1 Sideropenic dysphagia; R53.81 Other malaise; R00.0 Tachycardia, unspecified; I89.0 Lymphedema, not elsewhere classified; L21.9 Seborrheic dermatitis, unspecified; D64.9 Anemia, unspecified; L24.A2 Irritant contact dermatitis due to fecal, urinary or dual incontinence; R29.898 Other symptoms and signs involving the musculoskeletal system; F41.9 Anxiety disorder, unspecified; Z74.09 Other reduced mobility; L98.429 Non-pressure chronic ulcer of back with unspecified severity; R53.83 Other fatigue; M17.0 Bilateral primary osteoarthritis of knee; R06.00 Dyspnea, unspecified; R79.1 Abnormal coagulation profile; Z79.01 Long term (current) use of anticoagulants
CPT/HCPCS: 36415; 51701; 71045; 73560; 80048; 81001; 82270; 82803; 83605; 83735; 83880; 84443; 85018; 85025; 85045; 85379; 86140; 86850; 86900; 86901; 87040; 87070; 87186; 97110; 97161; 97166; 97530; 97535; 99284; J0571; A9270; G0378; J1650

== ENCOUNTER 2023-10-12 10:25 | Outpatient (CLI) | payer MEDICARE, SELFPAY ==
--- OUTSIDE RECORDS SUMMARY | 2023-10-21 03:41 | XMS_ITS | Clinical Summary ---
Author Name Unknown Organization [facility] Address [address] [place] [address] Care Team Providers Care Business Banking Relationship Manager Name Role Phone Hill Broderick MD Primary Care Provider [phone] Allergies Active Allergy Reactions Criticality Noted Date Comments Amoxicillin 10/13/2023 Buspirone 10/13/2023 Cephalexin 10/13/2023 Doxycycline 10/13/2023 Latex 10/13/2023 Lisinopril 10/13/2023 Penicillins 10/13/2023 Sulfa (Sulfonamide Antibiotics) 06/2023 Medications Medication Sig Dispensed Refills Start Date End Date Status LACTOBACILLUS ACIDOPHILUS ORAL Take 1 capsule by mouth twice a day. Suspended nystatin (MYCOSTATIN) 100,000 unit/gram Top Powd powder Apply to skin twice a day. To folds x 14 days (through 10/25) Suspended acetaminophen (TYLENOL) 500 mg oral tablet Take 2 tablets (1,000 mg) by mouth every 8 (eight) hours as needed. Suspended ondansetron (ZOFRAN) 4 mg oral tablet Take 1 tablet (4 mg) by mouth every 8 (eight) hours as needed. Suspended DULoxetine (CYMBALTA) 60 mg oral delayed release capsule Take 1 capsule (60 mg) by mouth once a day with evening meal. Suspended ferrous sulfate (FERATAB) 325 mg (65 mg iron) oral tablet Take 1 tablet (325 mg) by mouth once daily. Suspended furosemide (LASIX) 20 mg oral tablet Take 1 tablet (20 mg) by mouth once daily. Suspended celecoxib (CELEBREX) 100 mg oral capsule Take 1 capsule (100 mg) by mouth once daily. Suspended Cholecalciferol, Vitamin D3, 1,250 mcg (50,000 unit) oral capsule Take 1 capsule by mouth Once a day every Wednesday and . Suspended hydrocortisone (CORTAID) 1 % Top cream Apply 1 Application to skin every evening. Suspended lidocaine 4% (SALONPAS) 4 % Top patch Apply 1 patch to skin once daily. Keep on for 12 hours and remove for 12 hours. Suspended potassium chloride (K-DUR) 10 mEq oral extended release tablet Take 1 tablet (10 mEq) by mouth once daily. Suspended collagenase 250 unit/g (SANTYL) 250 unit/gram Top Oint Apply 1 Application to skin every evening. Suspended diclofenac sodium (VOLTAREN) 1 % Top gel Apply 1 Application to skin twice a day. To mid lower back Suspended Active Problems Problem Noted Date Diagnosed Date Ambulatory dysfunction 10/13/2023 Encounters Date Type Department Care Team Description 10/13/2023 5:09 PM CDT - Present Emergency [facility] [place] [address] Kelly Gamboa MD Hood, MD Nazario Carvajal Edwin E, MD Jambhekar, Nilesh S, MD Akintunde, Shawna Ware MD Ambulatory dysfunction 10/13/2023 Travel from Last 3 Months Social History Tobacco Use Types Packs/Day Years Used Date Smoking Tobacco: Never Assessed Humiliation, Afraid, Rape, and Kick questionnair e Answer Date Recorded Within the last year, have y ou been afraid of your partner or ex-partner? No 10/14/2023 Within the last year, have y ou been humiliated or emotionally abused in other ways by your partner or ex-partner? No Within the last year, have y ou been kicked, hit, slapped, or otherwise physically hurt by your partner or ex-partner? No 10/14/2023 Within the last year, have y ou been raped or forced to have any kind of sexual activity by your partner or ex-partner? No 10/14/2023 Sex and Gender Information Value Date Recorded Sex Assigned at Not on file Gender Identity Not on file Sexual Orientation Not on file Last Filed Vital Signs Vital Sign Reading Time Taken Comments Blood Pressure 147/81 10/20/2023 11:19 PM CDT Pulse 100 10/20/2023 11:19 PM CDT Temperature 36.6 ??C (97.9 ??F) 10/20/2023 11:19 PM C DT Respiratory Rate 18 10/20/2023 11:19 PM CDT Oxygen Saturation 93% 10/20/2023 11:19 PM CDT Inhaled Oxygen Concentration - - Weight 137.4 kg (303 lb) 10/13/2023 9:48 PM CDT Height 163 cm (5' 4.17) 10/13/2023 9:48 PM CDT Body Mass Index 51.73 10/13/2023 9:48 PM CDT Plan of Treatment Health Maintenance Due Date Last Done Comments Colonoscopy 1954 Lipid Screening 1954 Mammogram Screening 1954 Osteoporosis Screening 1954 Depression Assessment (PHQ-2) 10/16/1955 Pneumococcal 65+ (1 of 2 - PCV) 1960 Zoster Vaccine (1 of 2) 2004 RSV 60+ Yrs (1 - 1-dose 60+ series) 2014 Adult Tetanus Booster 03/04/2021 03/04/2011 Yearly Review of HCD 10/12/2024 10/13/2023 Diabetes Screening 10/12/2026 10/13/2023 Hepatitis C Screening Completed 01/24/2019 Influenza Vaccine Completed 08/12/2023, , 05/30/2019, Additional history exists COVID-19 Vaccine Completed 09/15/2023, 01/2022, 02/10/2021 Procedures The patient is currently admitted. The information in this section might not be complete until the patient is discharged. Procedure Name Priority Date/Time Associated Diagnosis Comments POTASSIUM Routine 10/20/2023 4:33 AM CDT CREATININE EGFR Routine 10/20/2023 4:33 AM CDT PLATELET COUNT Routine 10/20/2023 4:33 AM CDT HEMOGLOBIN Routine 10/20/2023 4:33 AM CDT IRON STATUS (INCLUDES IRON, TRANSFERRIN AND FERRITIN) Add On 10/17/2023 11:04 AM CDT POTASSIUM Routine 10/17/2023 11:04 AM CDT CREATININE EGFR Routine 10/17/2023 11:04 AM CDT PLATELET COUNT Routine 10/17/2023 4:01 AM CDT HEMOGLOBIN Routine 10/17/2023 4:01 AM CDT CREATININE EGFR Routine 10/16/2023 5:05 AM CDT POTASSIUM Routine 10/16/2023 5:05 AM CDT CREATININE EGFR Routine 2023 4:59 AM CDT POTASSIUM Routine 2023 4:59 AM CDT CREATININE EGFR Routine 10/14/2023 5:29 AM CDT POTASSIUM Routine 10/14/2023 5:29 AM CDT PLATELET COUNT Routine 10/14/2023 5:29 AM CDT HEMOGLOBIN Routine 10/14/2023 5:29 AM CDT EXTRA TUBE PST STAT 10/13/2023 6:32 PM CDT EXTRA TUBE-SST (LAB USE ONLY) STAT 10/13/2023 6:32 PM CDT EXTRA TUBE-EDTA STAT 10/13/2023 6:32 PM CDT EXTRA TUBE-BLOOD BANK STAT 10/13/2023 6:32 PM CDT BASIC METAB PROFILE STAT 10/13/2023 6 :32 PM CDT CBC/DIFF STAT 10/13/2023 6:32 PM CDT XR PELVIS & HIP LATERAL RT 07/21/2003 1:30 PM [employer] DELIV[employer] from Last 3 Months or Most Recently Relevant to Health Maintenance Results * (ABNORMAL) Creatinine eGFR (10/20/2023 4:33 AM CDT) Only the most recent of5 resultswithin the time period is included. Creatinine 1.15(H) 0.55 - 1.02 mg/dL 10/20/2023 5:46 AM CDT [facility] Est GFR (CKD-EPI) 51.67(L) >60.00 mL/min/1. 73m2 10/20/2023 5:46 AM CDT [facility] Comment:Calculation based on the Chronic Kidney Disease Epidemiology Collaboration (CKD-EPI) equation refit without adjustment for race. Blood 10/20/2023 4:33 AM CDT 10/20/2023 5:13 AM CDT Darin Caba PA-C CHEMISTRY ORDERABLE Performing Organization Address [facility] de Phone Number [facility] [address] [place] [address] * Potassium, Serum (10/20/2023 4:33 AM CDT) Only the most recent of5 resultswithin the time period is included. Potassium 4.5 3.4 - 5.1 mmol/L 10/20/2023 5:38 AM CDT [facility] Blood 10/20/2023 4:33 AM CDT 10/20/2023 5:13 AM CDT Darin Caba PA-C CHEMISTRY ORDERABLE Performing Organization Address City/[facility]/ZIP Co de Phone Number [facility] [address] [place] [address] * Platelet Count (10/20/2023 4:33 AM CDT) Only the most recent of3 resultswithin the time period is included. Platelet Count 222 150 - 400 K/UL 10/20/2023 5:23 AM CDT [facility] Blood 10/20/2023 4:33 AM CDT 10/20/2023 5:13 AM CDT Francie Jaime MD HEMATOLOGY ORDERABLE Performing Organization Address City/[facility] Co de Phone Number [facility] [address] [place] [address] * (ABNORMAL) Hemoglobin (10/20/2023 4:33 AM CDT) Only the most recent of3 resultswithin the time period is included. Hemoglobin 9.9(L) 12.0 - 16.0 gm/dL 10/20/2023 5:23 AM CDT [facility] Blood 10/20/2023 4:33 AM CDT 10/20/2023 5:13 AM CDT Francie Jaime MD HEMATOLOGY ORDERABLE Performing Organization Address [facility] Phone Number [address] [place] [address] * (ABNORMAL) Iron Status (Includes Iron, Transferrin and Ferritin) (10/17/2023 11:04 AM CDT) TIBC 285 250 - 425 ug/dL 10/17/2023 1:29 PM CDT [facility] IRON SATURATION 13(L) 15 - 50 % 1:29 PM CDT [facility] FERRITIN, SERUM 82.0 7.3 - 270.7 ng/mL 10/17/2023 1:29 PM CDT [facility] Iron 37(L) 50 - 170 ug/dL 10/17/2023 1:29 PM CDT [facility] TRANSFERRIN, SERUM 186 180 - 300 mg/dL 10/17/2023 1:29 PM CDT [facility] Blood 10/17/2023 11:0 4 AM CDT 10/17/2023 11:23 AM CDT Drain Caba PA-C CHEMISTRY ORDERABLE Performing Organization Address City/[facility] Co de Phone Number [facility] [address] [place] [address] * Extra Tube-EDTA (Lab Use Only) (10/13/2023 6:32 PM CDT) Blood 10/13/2023 6:32 PM CDT 10/13/2023 6:32 PM CDT Kelly Gamboa MD HEMATOLOGY ORDERAB LE Performing Organization Address [facility] de Phone Number [facility] [address] [place] [address] * Extra Tube-Blood Bank (Lab Use Only) (10/13/2023 6:32 PM CDT) Blood 10/13/2023 6:32 PM CDT 10/13/2023 6:32 PM CDT Kelly Gamboa MD BLOOD BANK ORDERAB LE Performing Organization Address [facility] Co de [facility] Number [address] [facility] [place] [address] * Extra Tube-SST (Lab Use Only) (10/13/2023 6:32 PM CDT) Blood 10/13/2023 6:32 PM CDT 10/13/2023 6:32 PM CDT Kelly Gamboa MD CHEMISTRY ORDERABL E Performing Organization Address [facility] de Phone Number [address] [facility] [place] [address] * (ABNORMAL) Basic Metabolic Profile (10/13/2023 6:32 PM CDT) Sodium 139 136 - 145 mmol/L 10/13/2023 7:00 PM CDT [facility] Potassium 4.3 3.4 - 5.1 mmol/L 10/13/2023 7:00 PM CDT [facility] Chloride 103 98 - 108 mmol/L 10/13/2023 7:00 PM CDT [facility] Carbon Dioxide 30 20 - 31 mmol/L 10/13/2023 7:00 PM T [facility] BUN (Urea Nitro) 15 9 - 23 mg/dL 10/13/2023 7:00 PM [facility] Creatinine 1.15(H) 0.55 - 1.02 mg/dL 10/13/2023 7:00 PM [facility] Est GFR (CKD-EPI) 52.00(L) >60.00 mL/min/1. 73m2 10/13/2023 7:00 PM T [facility] Comment:Calculation based on the Chronic Kidney Disease Epidemiology Collaboration (CKD-EPI) equation refit without adjustment for race. Glucose 100 74 - 106 mg/dL 10/13/2023 7:00 PM [facility] Calcium, Serum 9.6 8.7 - 10.4 mg/dL 10/13/2023 7:00 PM [facility] Anion Gap 6.0 0.0 - 15.0 mmol/L 10/13/2023 7:00 PM [facility] Blood 10/13/2023 6:32 PM CDT 10/13/2023 6:32 PM CDT Kelly Gamboa MD CHEMISTRY ORDERABL E [facility] [address] [place] [address] * (ABNORMAL) CBC w/diff (10/13/2023 6:32 PM CDT) WBC 5.5 4.3 - 10.8 K/uL 10/13/2023 6:40 PM [facility] RBC 3.61(L) 4.20 - 5.40 M/uL 10/13/2023 6:40 PM [facility] Hemoglobin 10.4(L) 12.0 - 16.0 gm/dL 10/13/2023 6:40 PM [facility] Hematocrit 32.4(L) 36.0 - 48.0 % 10/13/2023 6:40 PM [facility] MCV 90 80 - 100 fL 10/13/2023 6:40 PM [facility] MCH 29 27 - 33 pg 10/13/2023 6:40 PM [facility] MCHC 32(L) 33 - 36 gm/dL 10/13/2023 6:40 PM [facility] RDW 13.3 11.5 - 14.5 % 10/13/2023 6:40 PM [facility] Platelet Count 251 150 - 400 K/UL 10/13/2023 6:40 PM [facility] MPV 10.2 6.5 - 12 fL 10/13/2023 6:40 PM [facility] PMN % 64.1 % 10/13/2023 6:40 PM [facility] IG % 0.5 <=1.0 % 10/13/2023 6:40 PM [facility] Lymphocyte % 20.8 % 10/13/2023 6:40 PM [facility] Monocyte % 9.7 % 10/13/2023 6:40 PM [facility] Eosinophil % 4.2 % 10/13/2023 6:40 PM [facility] Basophil % 0.7 % 10/13/2023 6:40 PM [facility] PMN Absolute 3.51 1.80 - 7.80 K/uL 10/13/2023 6:40 PM [facility] Lymphocyte Absolute 1.14 1.00 - 4.00 K/uL 10/13/2023 6:40 PM [facility] Monocyte Absolute 0.53 0.00 - 1.00 K/uL 10/13/2023 6:40 PM [facility] Eosinophil Absolute 0.23 0.00 - 0.45 K/uL 10/13/2023 6:40 PM [facility] Basophil Absolute 0.04 0.00 - 0.20 K/uL 10/13/2023 6:40 PM [facility] Nucl RBC % 0.0 0.0 - 0.0 /100 WBC 10/13/2023 6:40 PM [facility] Nucl RBC Absolute 0.00 0.00 - 0.00 K/uL 10/13/2023 6:40 PM CDT [facility] Blood 10/13/2023 6:32 PM CDT 10/13/2023 6:32 PM CDT Kelly Gamboa MD HEMATOLOGY ORDERAB LE Performing Organization Address [facility] Co de Phone Number [facility] [address] [place] [address] * Extra Tube PST (Lab Use Only) (10/13/2023 6:32 PM CDT) Blood 10/13/2023 6:32 PM CDT 10/13/2023 6:32 PM CDT Kelly Gamboa MD CHEMISTRY ORDERABL E Performing Organization Address [facility] de 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 Pain. IMPRESSION: A frontal view of the pelvis, and frontal and lateral views of the right hip were obtained. There is a comminuted fracture of the right hip in the intertrochanteric and subtrochanteric regions. There is marked varus deformity at the site of the fracture. Simone Grant MD XRAY ORDERABLE from Last 3 Months or Most Recently Relevant to Health Maintenance Additional Health Concerns Infection Onset Date Last Indicated Resolved Time MRSA Comment:Added from external infection. Source: [employer] [facility]. 12/08/2015 10/14/2023 Advance Directives For more information, please contact: [phone] Latest Code Status on File Code Status Date Activated Date Inactivated Comments Full Code 10/13/2023 9:27 PM Question Answer Comments How was code status determined? Patient Care Teams Business Banking Relationship Manager Relationship Specialty Start Date End Date Hill Broderick MD [address] [place] [address] PCP - General Family Medicine - 10/13/23
--- OUTSIDE RECORDS SUMMARY | 2023-10-21 03:41 | XMS_ITS | Encounter Summary ---
Author Name Unknown Organization [facility] Address [address] [place] [id number] Care Team Providers Care Environmental Sampling Technician Name Role Phone Hill Broderick MD Primary Care Provider [phone] Encounter Details Date Type Department Care Team (Latest Contact Info) Description 10/13/2023 Travel Social History Tobacco Use Types Packs/Day Years [...] on file Sexual Orientation Not on file documented as of this encounter Plan of Treatment Not on file documented as of this encounter Visit Diagnoses Not on filedocumented in this encounter Care Teams Environmental Sampling Technician Relationship Specialty Start Date End Date Hill Broderick MD [address] [facility] [place] [address] PCP - General Family Medicine - 10/13/23 documented as of this encounter
--- OUTSIDE RECORDS SUMMARY | 2023-10-21 03:41 | XMS_ITS | Encounter Summary ---
Author Name Unknown Organization [facility] Address [address] [place] [id number] Care Team Providers Care Price Lister Name Role Phone Hill Broderick MD Primary Care Provider [phone] Reason for Visit * Reason Comments Social service admit Knee pain * Inpatient Admission (Routine) Specialty Diagnoses / Procedures Referred By Minor holloway Referred To Contact Diagnoses Ambulatory dysfunction Referral ID Status Reason Start Date Expiration Date Visits Re quested Visits Authorized [id number] 1 1 Encounter Details Date Type Department Care Team (Late st Contact Info) Description 10/13/2023 5:09 PM CDT - Present Emergency W[address] [place] [address] [id number] Kelly Gamboa MD [address] [facility] [address] [place], [place] [id number] Francie Jaime MD [facility] Center[facility] [place], [place] [address] [place] [address] [place] [address] [place] [id number] [place] [address] [place] [address] [place], [place] [address] [place] [address] [place] [address] [place], [place] [address] Ambulatory dysfunction Social History Tobacco Use Types Packs/Day Years [...] on file documented as of this encounter Last Filed Vital Signs Vital Sign Reading [...] Mass Index 51.73 10/13/2023 9:48 PM CDT documented in this encounter Progress Notes * Anat Abdullahi RN - 10/20/2023 10:05 PM CDT [id number] No acute changes noted on this shift. Pt continuously refuse to turn and reposition. Education was provided. * Lidia Lugo RN - 10/20/2023 2:19 PM CDT Med-Surg Care Progression Note Type: Shift to shift summary Length of stay: 0 days Code Status: Full Code Primary Problem: Ambulatory dysfunction Summary:Pt is alert & oriented, pt declines repositioning, pt was able to turn & repo x 1 for a few minutes with a lot of encouragement during cares, and pt returns back to her left side. Zofran &Tylenol given for nausea & left knee pain with some relief, wound-care done. F- Feeding & Fluids: Tolerating regular diet A- Analgesic & Anticoagulation: Comfort Goal: Numeric, Verbal, Faces: 2 Analgesic Tylenol Anticoagulation/DVT prevention & plan Anticoagulant plan Lovenox S- Skin: Jose A Subcategory Concern(s): Sensory Perception: Slightly Limited Sensory Interventions:Appropriate support surface and Pain control Moisture: Moist Moisture Interventions: Minimize chux/linen layers and Keep folds dry/interdry/nystatin Activity: Chairfast Activity Interventions: Reposition every 2 hours and Low air loss mattress Nutrition: Excellent Nutrition Interventions: Calorie intake Mobility: Very Limited Mobility Interventions: Turning every 2 hrs and Low air loss support Friction and Shear: Problem Friction and Shear Interventions: Use knee gatch to prevent slide and Protect heels and elbows from friction/slide Total Jose A Score: 14: Turn & repo with assist of 2 T- Telemetry: No tele E- Emotional & Neuro: Participating in cares Neuro Alert and Oriented R- Respiratory: On room air H- Head OUT of Bed & Activity: Activate Fall Alert? (Enter 1 or 0): 1 No OOB activity Early mobility Phases 1-4: Phase 1: Bed Mobility U- Urologic/bowel: Size: Large (10/20/2023 1:50 AM) Voiding incontinent G- Glycemic Control: Not applicable T- Treatment: Labs Vitals, pain monitor, wound-care, Safety, PT/OT, Placement I- Invasive Devices: PIV D- Discharge: TBD * Kelly Browne PT - 10/20/2023 1:55 PM CDT Attempted PT session. PT had the EasyStand ready and OT-PT were planning co- treat. Gave pt MAX encouragement and education to participate in PT, but she refused, stating that she isn't feeling well. PT reminded pt that yesterday she told this PT that she wanted to get up today with the EasyStand. Pt cont to refuse. Today is her 2nd refusal. If she refuses again tomorrow, PT will sign off. (EasyStand sling left in room.) * Anali Valdez, OT - 10/20/2023 1:55 PM CDT Occupational Therapy Attempted to see patient this afternoon for OT/PT co-treatment session however patient declined allactivity despite max encouragement and education. Will follow up tomorrow as able and appropriate. * Denise Rodriguez APRN, STRIP TANK TENDER - 10/20/2023 9:40 AM CDT Images from the original note were not included. HOSPITALIST DIVISION PROGRESS NOTE Admit date: 10/13/2023 Length of stay: 0 days CHIEF COMPLAINT: left knee pain, nausea Interval history: NAEON ASSESSMENT & PLAN Gracia Kenya Louise is a 68 y.o. 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 She is unable to care for herself safely due to immobility and recent status of being functionally bed bound. Principal Problem: Ambulatory dysfunction Ambulatory dysfunction related to osteoarthritis, morbid obesity OT for SLUMS () Considered 7N consult however pt not willing to consistently work with therapy (despite encouragement prior to therapy today) and unlikely to have the stamina for aggressive therapy. - PT OT and CM consultations; Diarrhea, improved Dyspepsia, improved Nausea Possible gastritis. No significant associated signs/symptoms of fever, chills, abd pain. Nauseated this am. She thinks possibly due to poor sleep from left knee pain. No vomit or abd pain. - Symptomatic management - Monitor for return of symptoms with resuming iron supplement. - Fiber supplement added - PRN Pepto-bismol, Tums for dyspepsia SUZIE - Restarted iron supplement every other day Stage 4 pressure wound on coccyx - WOCN involvement appreciated - Continue to monitor for benefit of replacement of covarrubias catheter for wound care purposes - Pt with minimal participation in bed mobility, providing conflicting reports from nursing team and therapy notes. Reinforced concerns for further pressure sores and patient expresses understanding Osteoarthritis with ambulatory difficulties Chronic pain Previously on MS contin which was changed to Buprenorphine at last TCU. This was then discontinued at recent hospitalization d/t concerns of sedation and inconsistent use. Patient has continued off of narcotic treatment since this time. - Scheduled celecoxib, duloxetine - Cont lidoderm patch - APAP PRN - Goal to avoid narcotic analgesic given sedation/fatigue effects before and lack of acute pain syndrome Osteopenia Recent fall with L knee bruising - noted on XR. - as ongoing pain in L knee limiting mobility, has been offered to check MRI knee for suspected ligament injury but patient declines due to severe claustrophobia. - Cautious trial of low dose tramadol at bedtime tonight. 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 # Acute Pain Management:PRN tylenol, daily celebrex, lidocaine patch # Lines: PIV # Fluids: PO # Nutrition: regular diet # Covarrubias: n/a # DVT Prophylaxis: lovenox # Wounds/Skin Care: per woc # Family Communication: pt updating # Code status: Full # Discharge criteria: Anticipate discharge once safe dispo plan in place. SUBJECTIVE Feeling nauseated this morning. She thinks due to poor sleep from knee pain. No abd pain. No vomiting. No SOB. Encouraged to work hard with therapy given her goals to return home. OBJECTIVE BP (!) 169/98 Pulse (!) 103 Temp 97.7 ??F (36.5 ??C) Resp 18 Ht 5' 4.17 (1.63 m) Wt (!) 137.4 kg (303 lb) SpO2 94% BMI 51.73 kg/m?? Intake/Output Summary (Last 24 hours) at 10/20/2023 0800 Last data filed at 10/19/2023 2200 Gross per 24 hour Intake -- Output 350 ml Net -350 ml GENERAL APPEARANCE: She is awake, alert and in no acute distress. HEENT: Head - Normocephalic, atraumatic. Eyes - Normal lids and conjunctivae, Moist mucous membranes. RESPIRATORY: Clear ant, normal effort, room air CARDIOVASCULAR: Normal S1, normal S2, regular rate no murmur. GASTROINTESTINAL: Soft, non-tender, active bowel sounds, obese SKIN: warm, dry. NEUROLOGIC: Alert and oriented X 3, moves all extremities. Non-focal exam. sensation grossly intact EXTREMITIES: + lower leg lymphedema (at baseline per pt) Current Facility-Administered Medications: saline FLUSH syringe 10 mL, 10 mL, Intravenous, PRN, Francie Jaime MD acetaminophen (TYLENOL) tablet 500-1,000 mg, 1-2 tablet, oral, Q6H PRN, Darin Caba, PAArnoldoC, 1,000 mg at 10/20/23 0346 bismuth subsalicylate (PEPTO-BISMOL) (conc: 262 mg/15 mL) oral suspension 524 mg, 30 mL, oral, Q6H PRN, Darin Caba, INNAC, 524 mg at 10/16/23 1600 calcium carbonate (TUMS) chewable tablet 500 mg, 1 tablet, oral, TID PRN, Darin Caba PA-C, 500 mg at 10/18/23 1950 celecoxib (CeleBREX) capsule 100 mg, 100 mg, oral, DAILY, Francie Jaime MD, 100 mg at 10/20/23 0751 DULoxetine (CYMBALTA) delayed release capsule 60 mg, 60 mg, oral, QPMCC, Francie Jaime MD, 60 mgat 10/19/23 1807 enoxaparin (LOVENOX) injection 40 mg, 40 mg, Subcutaneous, Twice Daily, Francie Jaime MD, 40 mg at 10/20/23 0758 ferrous sulfate (FERATAB) tablet 325 mg, 325 mg, oral, QOD, Darin Caba PA- C, 325 mg at 10/20/23 0752 furosemide (LASIX) tablet 20 mg, 20 mg, oral, DAILY, Francie Jaime MD, 20 mg at 10/20/23 0752 hydrocortisone (CORTAID) 1% topical cream, , topical, BID PRN, Darin Caba PA-C, Given at 10/15/23 1223 lidocaine 4% (Salonpas) adhesive patch, medicated 1 patch, 1 patch, Transdermal, DAILY, Francie Jaime MD, 1 patch at 10/20/23 0800 lidocaine 4% (Salonpas) adhesive patch, medicated 1 patch, 1 patch, Transdermal, DAILY, Francie Jaime MD, 1 patch at 10/20/23 075 melatonin tablet 3 mg, 3 mg, oral, Q BEDTIME, Tadeo Kan MD, 3 mg at 10/19/232115 nystatin (MYCOSTATIN) powder, , topical, Twice Daily, Francie Jaime MD, Given at 10/19/232016 ondansetron (Zofran) disintegrating tablet 4 mg, 4 mg, oral, Q8H PRN, Darin Caba PA-C, 4 mg at 10/20/23 075 polycarbophil calcium (FIBERCON) tablet 625 mg, 1 tablet, oral, DAILY, Darin Caba PA-C, 625 mg at 10/20/23 075 potassium chloride (K-DUR) extended release tablet 10 mEq, 10 mEq, oral, DAILY, Francie Jaime MD, 10 mEq at 10/20/23 0751 LABS Recent Labs 10/20/23 0433 HEMOGLOBIN 9.9* PLATELETCT 222 No Lab Results Found (last 72 hours) Recent Labs 10/17/23 1104 10/20/23 0433 POTASSIUM 4.2 4.5 CREATININE 0.94 1.15* ESTGFRMDRD >60.00 51.67* ABG: No Lab Results Found (last 72 hours) VBG: No Lab Results Found (last 72 hours) Invalid input(s): O2SV Micro: No results found for this visit on 10/13/23. Pressure Injury: Stage 3 Right;Outer Orozco;Calf (Active) First Observed/Origin Date/First Observed/Origin Time: 10/13/231744 Type: Stage 3 Orientation: Right;Outer Location: Orozco;Calf Wound Observance : Prior to Admission Pressure Injury: Stage 4 Coccyx (Active) First Observed/Origin Date/First Observed/Origin Time: 10/13/231744 Type: Stage 4 Location: CoccyxWound Observance : Prior to Admission Skin Condition Ecchymotic (Bruised) Anterior;Left Knee (Active) First Observed/Origin Date/First Observed/Origin Time: 10/13/231744 Skin Condition Type: Ecchymotic (Bruised) Orientation: Anterior;Left Location: Knee Wound Observance : Prior to Admission Skin Condition Moisture Related Dermatitis Left Abdomen (Active) First Observed/Origin Date/First Observed/Origin Time: 10/13/231744 Skin Condition Type: Moisture Related Dermatitis Orientation: Left Location: Abdomen Wound Observance : Prior to Admission Skin Condition Moisture Related Dermatitis Right;Left Buttocks (Active) First Observed/Origin Date/First Observed/Origin Time: 10/18/23 09 Skin Condition Type: (c) Moisture Related Dermatitis Orientation: Right;Left Location: Buttocks Wound Observance : Suspected Hospital Acquired Skin Condition Ecchymotic (Bruised);Incontinence Associated Dermatitis;Moisture Related Dermatitis Left;Right Groin (Active) No First Observed/Origin Date or First Observed/Origin Time found. Skin Condition Type: Ecchymotic (Bruised);Incontinence Associated Dermatitis;Moisture Related Dermatitis Orientation: Left;Right Location: Groin Additional comments: I discussed the patient's care with RN, case management, therapy Imaging No new imaging I have discussed and reviewed with Dr. Holcomb on 10/20/2023 [facility] Available via [employer] [phone]. After hours please contact [facility] medicine cross cover team. * Kenji Louise - 10/20/2023 8:57 AM CDT Nutrition Assessment Reason for Assessment: Follow up Malnutrition Screening Tool Total Score: 0 Malnutrition : Does not meet malnutrition criteria This may change per physician's clinical assessment. Loss of Muscle Mass: Not present Loss of Subcutaneous Fat: Not present Fluid Accumulation: Mild 1+ Energy Intake: Adequate intakes Interpretation of Weight Loss: Limited/no weight history available NUTRITION INTERVENTION, MONITORING, AND EVALUATION Interventions/Recommendations: Nutrition Prescription: Regular diet PM/HS snacks- pt tired of high protein snacks- sending fruit cup only at this time Multivitamin once daily-recommended Goal: Meet greater than 75% of estimated needs during hospital admission Evaluation: New goal Monitoring: PO intakes, supplement intakes/preferences, and weight Nutrition Care Level: No Nutrition Risk NUTRITION-RELATED ASSESSMENT Reason for admission: Ambulatory dysfunction [R26.2] Recent admission to [facility] 10/01-09/3023 for chronic back pain, acute L knee pain. [facility] and left AMA. PMH: SUZIE, PI stage 4 coccyx, osteoarthritis, chronic pain, morbid obesity, anxiety disorder, chronic lymphedema Dietitian Visit Summary: 10/19: Noted fair/good intake over the past several days. Changed snack per pt request. 10/14/23: Met with pt today. She reports low appetite, but was able to eat < 75% of meals this admission. Pt unsure of recent wt changes or UBW. Discussed protein/wound healing needs. Added high protein snack BID. Pt is not interested in protein supplements- doesn't think she will like them. Provided handouts on high protein food sources/wound healing diet guidelines. Diet Order: Active Orders Diet Diet: Level 7 Regular Level 0: Thin Liquids Diet-Other Diet Communication to Dietary Nutrition Intakes: More than 75% since admission per I/O flowsheet documentation NUTRITION-RELATED H&P Pre-Admission Nutrition History: Regular intakes WINE SALES REPRESENTATIVE Other Pertinent Factors: wheel chair bound at baseline Anthropometric/Physical: Height: 5' 4.17 (163 cm) Admitting Weight: (!) 137.4 kg (303 lb), Actual Weight: (!) 137.4 kg (303 lb) IBW: 55 kg +/- 10%, 249% IBW Body mass index is 51.73 kg/m??., BMI Category: Obesity Class 3 (greater than 40) Actual weight change at admission: not able to assess due to limited recent weight history available Clinically significant for malnutrition: No Weight History: Wt Readings from Last 10 Encounters: 10/13/23 (!) 137.4 kg (303 lb) Skin: Reviewed Pressure Injury: Stage 3 Right;Outer Orozco;Calf (Active) First Observed/Origin Date/First Observed/Origin Time: 10/13/231744 Type: Stage 3 Orientation: Right;Outer Location: Orozco;Calf Wound Observance : Prior to Admission Pressure Injury: Stage 4 Coccyx (Active) First Observed/Origin Date/First Observed/Origin Time: 10/13/231744 Type: Stage 4 Location: CoccyxWound Observance : Prior to Admission Skin Condition Ecchymotic (Bruised) Anterior;Left Knee (Active) First Observed/Origin Date/First Observed/Origin Time: 10/13/231744 Skin Condition Type: Ecchymotic (Bruised) Orientation: Anterior;Left Location: Knee Wound Observance : Prior to Admission Skin Condition Moisture Related Dermatitis Left Abdomen (Active) First Observed/Origin Date/First Observed/Origin Time: 10/13/231744 Skin Condition Type: Moisture Related Dermatitis Orientation: Left Location: Abdomen Wound Observance : Prior to Admission Skin Condition Moisture Related Dermatitis Right;Left Buttocks (Active) First Observed/Origin Date/First Observed/Origin Time: 10/18/23 0900 Skin Condition Type: (c) Moisture Related Dermatitis Orientation: Right;Left Location: Buttocks Wound Observance : Suspected Hospital Acquired Skin Condition Ecchymotic (Bruised);Incontinence Associated Dermatitis;Moisture Related Dermatitis Left;Right Groin (Active) No First Observed/Origin Date or First Observed/Origin Time found. Skin Condition Type: Ecchymotic (Bruised);Incontinence Associated Dermatitis;Moisture Related Dermatitis Orientation: Left;Right Location: Groin Digestive System: LBM WINE SALES REPRESENTATIVE Last bowel movement: Size: Large (10/20/2023 1:50 AM) Bowel Meds: None Labs: Lab Results Component Value Date GLUCOSE 100 10/13/2023 Lab Results Component Value Date SODIUM 139 10/13/2023 POTASSIUM 4.5 10/20/2023 CALCIUMSERUM 9.6 10/13/2023 BUNUREANRO 15 10/13/2023 CREATININE 1.15 (H) 10/20/2023 Medications Reviewed: Current Facility-Administered Medications Medication Dose Route Frequency Provider Last Rate Last Admin saline FLUSH syringe 10 mL 10 mL Intravenous PRN Francie Jaime MD acetaminophen (TYLENOL) tablet 500-1,000 mg 1-2 tablet oral Q6H PRN Darin Caba PA-C 1,000 mg at 10/20/23 0346 bismuth subsalicylate (PEPTO-BISMOL) (conc: 262 mg/15 mL) oral suspension 524 mg 30 mL oral Q6H PRDarin Lees PA-C 524 mg at 10/16/23 1600 calcium carbonate (TUMS) chewable tablet 500 mg 1 tablet oral TID PRN Darin Caba PA-C 500 mg at 10/18/23 1950 celecoxib (CeleBREX) capsule 100 mg 100 mg oral DAILY Francie Jaime MD 100 mg at 10/20/23 0751 DULoxetine (CYMBALTA) delayed release capsule 60 mg 60 mg oral QPMCC Francie Jaime MD 60 mg at 10/19/23 1807 enoxaparin (LOVENOX) injection 40 mg 40 mg Subcutaneous Twice Daily Francie Jaime MD 40 mg at 10/20/23 0758 ferrous sulfate (FERATAB) tablet 325 mg 325 mg oral QOD Darin Caba PA-C 325 mg at 10/20/23 0752 furosemide (LASIX) tablet 20 mg 20 mg oral DAILY Francie Jaime MD 20 mg at 10/20/23 0752 hydrocortisone (CORTAID) 1% topical cream topical BID PRN Darin Caba PA-C Given at 10/15/23 1223 lidocaine 4% (Salonpas) adhesive patch, medicated 1 patch 1 patch Transdermal DAILY Francie Jaime MD 1 patch at 10/20/23 0800 lidocaine 4% (Salonpas) adhesive patch, medicated 1 patch 1 patch Transdermal DAILY Francie Jaime MD 1 patch at 10/20/23 0753 melatonin tablet 3 mg 3 mg oral Q BEDTIME Tadeo Kan MD 3 mg at 10/19/23 2116 nystatin (MYCOSTATIN) powder topical Twice Daily Francie Jaime MD Given at 10/19/23 2017 ondansetron (Zofran) disintegrating tablet 4 mg 4 mg oral Q8H PRN Darin Caba PA-C 4 mg at 10/20/23 075 polycarbophil calcium (FIBERCON) tablet 625 mg 1 tablet oral DAILY Darin Caba PA-C 625 mg at 10/20/23 075 potassium chloride (K-DUR) extended release tablet 10 mEq 10 mEq oral DAILY Francie Jaime MD 10 mEq at 10/20/23 0751 Nutrition Diagnosis Increased nutrient needs related to altered skin integrity (including wounds, pressure injuries, trauma, surgical wounds, skin ulcerations) as evidenced by non-healing pressure injury Active KENJI LOUISE, DTR Available on [employer] * Sheldon Ordaz RN - 10/20/2023 5:17 AM CDT Pt was weight shifted in bed while changing soaked chalk. She refused pillows to be put on her backor legs. * Sheldon Ordaz RN - 10/20/2023 1:57 AM CDT Pt refusing turns she has turned twice for changing when she had a BM. She complains of pain but doesn't to change the position of her leg. Charge nurse aware. * Sheldon Ordaz RN - 10/19/2023 10:42 PM CDT Med-Surg Care Progression Note Type: Shift to shift summary Length of stay: 0 days Code Status: Full Code Primary Problem: Left knee pain Summary:pt would refuse turns and would only allow to be on one side. F- Feeding & Fluids: Tolerating regular diet A- Analgesic & Anticoagulation: Comfort Goal: Numeric, Verbal, Faces: 2 Analgesic Prn tylenol given Anticoagulation/DVT prevention & plan Anticoagulant plan lovenox S- Skin: Jose A Subcategory Concern(s): Sensory Perception: Slightly Limited Sensory Interventions:Appropriate support surface Moisture: Moist Moisture Interventions: Keep folds dry/interdry/nystatin Activity: Bedfast Activity Interventions: Reposition every 2 hours and Safer bundle Nutrition: Excellent Mobility: Very Limited Mobility Interventions: Turning every 2 hrs pt refusing she can weight shift Friction and Shear: Problem Friction and Shear Interventions: Limit head of bed <30 degrees, Useknee gatch to prevent slide, and Protect heels and elbows from friction/slide Total Jose A Score: 13: pt refusing pillows on her back, she has a meplex on her coccyx. She has moisture related dermatitis nystatin applied, she has the Interdry ag. T- Telemetry: No tele E- Emotional & Neuro: Refusing cares Neuro Alert and Oriented R- Respiratory: On room air H- Head OUT of Bed & Activity: Activate Fall Alert? (Enter 1 or 0): 1 not OOB Early mobility Phase 0: PROM: (not recorded) U- Urologic/bowel: Size: Large (10/19/2023 8:00 PM) Voiding via purewick had a BM G- Glycemic Control: Not applicable T- Treatment: PT/OT I- Invasive Devices: D- Discharge: Discharge criteria TBD * Radha Craft RN - 10/19/2023 8:12 PM CDT [id number] Shift Update: VSS on RA. A&O x3. Pt refusing full skin assessment and turning and repositioning. Pt reports she does not want a pillow underneath her as it will prevent me from sleeping. This race and sports book writer providededucation regarding the importance of shifting weight to prevent skin breakdown. Cold compress applied to forehead for headache with relief. * Maria Del Carmen Bateman - 10/19/2023 3:23 PM CDT Spiritual Care Progress Note Derek: Gracia, age 68, said she is very tired as she didn't get much/any sleep last night due to leg pain. Pt is intermittently moaning and shared that she is unable to get comfortable in bed. Askedwhen she could get Tylenol again. Asked nurse and told Gracia it could be soon. Wants to get a placesoon near [place]. Plan: Follow up as needed or requested. Chaplains in Spiritual Care are available for emotional and spiritual support, in house between 6:30 am - 12:00 midnight, by consult in [facility], and for emergencies 04/01 in [facility]. Deacon Tiffanie Bateman MA Nurse Aide Evaluator, Spiritual Care * Zaid Traylor, RN - 10/19/2023 3:22 PM CDT Med-Surg Care Progression Note Type: Shift to shift summary Length of stay: 0 days Code Status: Full Code Primary Problem: Ambulatory Dysfunction, Pressure Injury Summary:Wound cares performed per Orders, NOOB, Refuses T/R q2h, Incontinent of B&B no BM this shift, emotional support provided. BP (!) 151/73 Pulse 98 Temp 97.9 ??F (36.6 ??C) Resp 18 Ht 1.63 m (5' 4.17) Wt (!) 137.4kg (303 lb) SpO2 94% BMI 51.73 kg/m?? F- Feeding & Fluids: Tolerating Regular diet A- Analgesic & Anticoagulation: Comfort Goal: Numeric, Verbal, Faces: 2 Analgesic PRN Tylenol given w minimal effects Anticoagulation/DVT prevention & plan Anticoagulant plan scheduled anticoagulants S- Skin: Jose A Subcategory Concern(s): Sensory Perception: Slightly Limited Sensory Interventions:Appropriate support surface, Pain control, and Refusal to turn/algorithm Moisture: Moist Moisture Interventions: Urinary alternatives, Minimize chux/linen layers, Keep folds dry/interdry/nystatin, and Change gown/bath/hygiene Activity: Bedfast Activity Interventions: Limited supine (reposition every 1 hour in chair), Low air loss mattress, and Safer bundle Nutrition: Excellent Mobility: Very Limited Mobility Interventions: Low air loss support Friction and Shear: Problem Friction and Shear Interventions: Protect heels and elbows from friction/slide Total Jose A Score: 13: Refusal of cares T- Telemetry: No tele E- Emotional & Neuro: Refusing cares Education provided Neuro Alert and Oriented R- Respiratory: On room air H- Head OUT of Bed & Activity: Activate Fall Alert? (Enter 1 or 0): 1 Refusing mobility - see note Early mobility Phases 1-4: Phase 1: Bed Mobility U- Urologic/bowel: Size: Large (10/18/2023 6:31 PM) Voiding via Purewick G- Glycemic Control: Not applicable T- Treatment: Consults PT/OT I- Invasive Devices: Not applicable D- Discharge: pending placement * Kelly Browne, PT - 10/19/2023 1:20 PM CDT Attempted PT session. Pt politely declined PT d/t leg pain. Pt states that she will work with PT tomorrow and would like to use the EasyStand to get OOB to the chair. PT will attempt session tomorrow. * Denise Rodriguez APRN, STRIP TANK TENDER - 10/19/2023 11:40 AM CDT Images from the original note were not included. HOSPITALIST DIVISION PROGRESS NOTE Admit date: 10/13/2023 Length of stay: 0 days CHIEF COMPLAINT: left knee pain Interval history: NAEON ASSESSMENT & PLAN Gracia Louise is a 68 y.o. 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 She is unable to care for herself safely due to immobility and recent status of being functionally bed bound. Principal Problem: Ambulatory dysfunction Ambulatory dysfunction related to osteoarthritis, morbid obesity - PT OT and CM consultations; OT for SLUMS () - Consider 7N consult? She has been bed bound since earlier this year. She reports high motivation to be ambulatory again so she can return home. Await PT/OT input 10/19. Diarrhea, improved Dyspepsia, improved Nausea, resolved Possible gastritis. No significant associated signs/symptoms of fever, chills, abd pain. Other current considerations include that patient may be having decreasing bowel control with progressive deconditioning over the past multiple months of being essentially bed-bound. - Symptomatic management - Monitor for return of symptoms with resuming iron supplement. - Fiber supplement added - PRN Pepto-bismol, Tums for dyspepsia SUZIE - Restarted iron supplement every other day Stage 4 pressure wound on coccyx - WOCN involvement appreciated - Continue to monitor for benefit of replacement of covarrubias catheter for wound care purposes - Pt with minimal participation in bed mobility, providing conflicting reports from nursing team and therapy notes. Reinforced concerns for further pressure sores and patient expresses understanding Osteoarthritis with ambulatory difficulties Chronic pain Previously on MS contin which was changed to Buprenorphine at last TCU. This was then discontinued at recent hospitalization d/t concerns of sedation and inconsistent use. Patient has continued off of narcotic treatment since this time. - Scheduled celecoxib, duloxetine - Cont lidoderm patch - APAP PRN - Goal to avoid narcotic analgesic given sedation/fatigue effects before and lack of acute pain syndrome Osteopenia Recent fall with L knee bruising - noted on XR. - as ongoing pain in L knee limiting mobility, has been offered to check MRI knee for suspected ligament injury but patient declines due to severe claustrophobia. Panic/Anxiety disorder - Cont WINE SALES REPRESENTATIVE cymbalta - BZD were stopped during past hospitalization and this appears reasonable to promote improved energy/fatigue - Cont to monitor Morbid obesity Chronic lymphedema - front end assistant - lasix 20 mg daily (with Kcl 10 meq daily); - Monitor K, Cr intermittently Candidal skin infection - on nystatin topical WINE SALES REPRESENTATIVE through 10/25, continued Seborrheic dermatitis - Cont topical cortisone Elevated BP BP intermittently ~150's systolic - Start HCTZ 10/19 pending electrolytes/Cr # Acute Pain Management:PRN tylenol, daily celebrex, lidocaine patch # Lines: PIV # Fluids: PO # Nutrition: regular diet # Covarrubias: n/a # DVT Prophylaxis: lovenox # Wounds/Skin Care: per woc # Family Communication: pt updating # Code status: Full # Discharge criteria: Anticipate discharge once safe dispo plan in place. SUBJECTIVE C/o left knee pain. Has had pain in her left knee since incident with EZ stand at last TCU. Again declines MRI due to severe claustrophobia. Did not sleep well due to knee pain. Appetite is stable. No SOB No urinary complaints. Reports was ambulatory at home prior to being hospitalized with covid ~June. Became very deconditioned during that hospitalization and was discharged to TCU where she became even more weak. She returned home briefly (~1week per Gracia), but was then rehospitalized due to weakness, coccyx pain (wound) and discharged again to TCU which she left AMA due to poor conditions. She seems to understand it may not be feasible to go home since she is not ambulatory, but is very fearful about another TCUwith the poor experiences she has had. She inquired about staying in the hospital for continued rehab until a TCU near [place] is available. OBJECTIVE BP (!) 151/73 Pulse 98 Temp 97.9 ??F (36.6 ??C) Resp 18 Ht 5' 4.17 (1.63 m) Wt (!) 137.4kg (303 lb) SpO2 94% BMI 51.73 kg/m?? Intake/Output Summary (Last 24 hours) at 10/19/2023 0838 Last data filed at 10/19/2023 0600 Gross per 24 hour Intake 590 ml Output 800 ml Net -210 ml GENERAL APPEARANCE: She is awake, alert and in no acute distress. HEENT: Head - Normocephalic, atraumatic. Eyes - Normal lids and conjunctivae, Moist mucous membranes. RESPIRATORY: Clear ant, mildly dyspneic with conversation, room air CARDIOVASCULAR: Normal S1, normal S2, regular rate no murmur. GASTROINTESTINAL: Soft, non-tender, active bowel sounds, obese SKIN: warm, dry. NEUROLOGIC: Alert and oriented X 3, moves all extremities. Non-focal exam. sensation grossly intact EXTREMITIES: + lower leg lymphedema (at baseline per pt) Current Facility-Administered Medications: saline FLUSH syringe 10 mL, 10 mL, Intravenous, PRN, Francie Jaime MD acetaminophen (TYLENOL) tablet 500-1,000 mg, 1-2 tablet, oral, Q6H PRN, Darin Caba PA-C, 1,000 mg at 10/19/23 0300 bismuth subsalicylate (PEPTO-BISMOL) (conc: 262 mg/15 mL) oral suspension 524 mg, 30 mL, oral, Q6H PRN, Darin Caba PA-C, 524 mg at 10/16/23 1600 calcium carbonate (TUMS) chewable tablet 500 mg, 1 tablet, oral, TID PRN, Darin Caba PA-C, 500 mg at 10/18/23 1950 celecoxib (CeleBREX) capsule 100 mg, 100 mg, oral, DAILY, Francie Jaime MD, 100 mg at 10/18/23 0848 DULoxetine (CYMBALTA) delayed release capsule 60 mg, 60 mg, oral, QPMCC, Francie Jaime MD, 60 mgat 10/18/23 1724 enoxaparin (LOVENOX) injection 40 mg, 40 mg, Subcutaneous, Twice Daily, Francie Jaime MD, 40 mg at 10/18/23 1948 [START ON 10/20/2023] ferrous sulfate (FERATAB) tablet 325 mg, 325 mg, oral, QOD, Darin Caba PA-C furosemide (LASIX) tablet 20 mg, 20 mg, oral, DAILY, Francie Jaime MD, 20 mg at 10/18/23 0848 hydrocortisone (CORTAID) 1% topical cream, , topical, BID PRN, Darin Caba PA-C, Given at 10/15/23 1223 lidocaine 4% (Salonpas) adhesive patch, medicated 1 patch, 1 patch, Transdermal, DAILY, Francie Jaime MD, 1 patch at 10/18/23 0853 lidocaine 4% (Salonpas) adhesive patch, medicated 1 patch, 1 patch, Transdermal, DAILY, Francie Jaime MD, 1 patch at 10/18/23 0852 melatonin tablet 3 mg, 3 mg, oral, Q BEDTIME, Tadeo Kan MD, 3 mg at 10/18/23 2126 nystatin (MYCOSTATIN) powder, , topical, Twice Daily, Francie Jaime MD, Given at 10/18/23 1948 ondansetron (Zofran) disintegrating tablet 4 mg, 4 mg, oral, Q8H PRN, Darin Caba PA-C, 4 mg at 10/15/23 1223 polycarbophil calcium (FIBERCON) tablet 625 mg, 1 tablet, oral, DAILY, Darin Caba PA-C, 625 mg at 10/18/23 0848 potassium chloride (K-DUR) extended release tablet 10 mEq, 10 mEq, oral, DAILY, Francie Jaime MD, 10 mEq at 10/18/23 0848 LABS Recent Labs 10/17/23 0401 HEMOGLOBIN 9.5* PLATELETCT 211 No Lab Results Found (last 72 hours) Recent Labs 10/17/23 1104 POTASSIUM 4.2 CREATININE 0.94 ESTGFRMDRD >60.00 ABG: No Lab Results Found (last 72 hours) VBG: No Lab Results Found (last 72 hours) Invalid input(s): O2SV Micro: No results found for this visit on 10/13/23. Pressure Injury: Stage 3 Right;Outer Orozco;Calf (Active) First Observed/Origin Date/First Observed/Origin Time: 10/13/231744 Type: Stage 3 Orientation: Right;Outer Location: Orozco;Calf Wound Observance : Prior to Admission Pressure Injury: Stage 4 Coccyx (Active) First Observed/Origin Date/First Observed/Origin Time: 10/13/231744 Type: Stage 4 Location: CoccyxWound Observance : Prior to Admission Skin Condition Ecchymotic (Bruised) Anterior;Left Knee (Active) First Observed/Origin Date/First Observed/Origin Time: 10/13/231744 Skin Condition Type: Ecchymotic (Bruised) Orientation: Anterior;Left Location: Knee Wound Observance : Prior to Admission Skin Condition Moisture Related Dermatitis Left Abdomen (Active) First Observed/Origin Date/First Observed/Origin Time: 10/13/231744 Skin Condition Type: Moisture Related Dermatitis Orientation: Left Location: Abdomen Wound Observance : Prior to Admission Skin Condition Moisture Related Dermatitis Right;Left Buttocks (Active) First Observed/Origin Date/First Observed/Origin Time: 10/18/23 0900 Skin Condition Type: (c) Moisture Related Dermatitis Orientation: Right;Left Location: Buttocks Wound Observance : Suspected Hospital Acquired Skin Condition Ecchymotic (Bruised);Incontinence Associated Dermatitis;Moisture Related Dermatitis Left;Right Groin (Active) No First Observed/Origin Date or First Observed/Origin Time found. Skin Condition Type: Ecchymotic (Bruised);Incontinence Associated Dermatitis;Moisture Related Dermatitis Orientation: Left;Right Location: Groin Additional comments: I discussed the patient's care with RN, case management. Imaging No new imaging I have discussed and reviewed with Dr. Holcomb on 10/19/2023 [facility] Medicine Available via [employer] [phone]. After hours please contact [facility] medicine cross cover team. * Pam Loja RN - 10/19/2023 6:33 AM CDT Med-Surg Care Progression Note Type: Shift to shift summary Length of stay: 0 days Code Status: Full Code Primary Problem: Ambulatory dysfunction Summary:Pt's alert and oriented, able to make needs known. C/o left knee pain, prn tylenol and coldpack given with minimum relief. Requires Ax3-4 for turn and repo, has the hover mat. Allowed turn and repo but declined [address], had some leakage. Cleaned and change. F- Feeding & Fluids: Tolerating regular diet A- Analgesic & Anticoagulation: Comfort Goal: Numeric, Verbal, Faces: 2 Analgesic Left knee pain, has prn tylenol available. Also offered cold/heat pack Anticoagulation/DVT prevention & plan Anticoagulant plan lovenox S- Skin: Jose A Subcategory Concern(s): Sensory Perception: Slightly Limited Sensory Interventions:Appropriate support surface, Pain control, and Remove/reposition devices Moisture: Moist Moisture Interventions: Urinary alternatives, Minimize chux/linen layers, Keep folds dry/interdry/nystatin, and Change gown/bath/hygiene Activity: Bedfast Activity Interventions: Reposition every 2 hours, Appropriate surface in while inchair, Seated positioning system, Low air loss mattress, and Safer bundle Nutrition: Excellent Mobility: Slightly Limited Mobility Interventions: Turning every 2 hrs, TAPS, and Low air loss support Friction and Shear: Problem Friction and Shear Interventions: Limit head of bed <30 degrees, Useknee gatch to prevent slide, and Protect heels and elbows from friction/slide Total Jose A Score: 14: specialty bed, turn and repo, multiple skin issues, wound cares T- Telemetry: No tele E- Emotional & Neuro: Participating in cares, may refuse at time Neuro Alert and Oriented R- Respiratory: On room air H- Head OUT of Bed & Activity: Activate Fall Alert? (Enter 1 or 0): 1 Did not get OOB, PT/OT following Early mobility Phase 0: PROM: (not recorded) U- Urologic/bowel: Size: Large (10/18/2023 6:31 PM) Voiding via purewick, no BM. Intermittent incontinent G- Glycemic Control: Not applicable T- Treatment: Pain control, wound cares, safety, placement, PT/OT I- Invasive Devices: Not applicable D- Discharge: TBD, pending TCU placement. * Pam Loja RN - 10/19/2023 2:42 AM CDT The race and sports book writer and NA with repositioning the pt and changing the wet Chux using the hover mat. The pt assisted with turning, was able to turn to the right side to allow the race and sports book writer and NA remove the chux.While doing that, the pt forcefully pushed to the right where the NA and RN were, which strain to the race and sports book writer left shoulder. Saying the race and sports book writer touched her knees. Though there is no physical injuries. But the race and sports book writer felt pain in right shoulder. Charge nurse notified. * Pam Loja RN - 10/19/2023 2:26 AM CDT Perirectal cleaned and coloplast applied. Turned and repositioned. Changed purewick and new Chux. * Nancy Hein RN - 10/18/2023 10:44 PM CDT Med-Surg Care Progression Note Type: Shift to shift summary Length of stay: 0 days Code Status: Full Code Primary Problem: Ambulatory dysfunction Summary:Pt alert and oriented. Anxious this shift and became irritable with staff. Did not want assistance with positioning or skin cares in beginning of shift.Later on, pt refused to let NA help race and sports book writer with positioning and wanted only the race and sports book writer to do skin cares/repositioning. While explaining theneed for additional staff to safely do cares, pt told race and sports book writer to stay quiet. No acute events this shift. F- Feeding & Fluids: Tolerating regular diet. PO fluids. Good appetite. A- Analgesic & Anticoagulation: Comfort Goal: Numeric, Verbal, Faces: 2 Analgesic Reported L knee pain. Given Tylenol and ice pack. Anticoagulation/DVT prevention & plan Anticoagulant plan Lovenox SQ. S- Skin: Jose A Subcategory Concern(s): Sensory Perception: Slightly Limited Sensory Interventions:Appropriate support surface, Pain control, and Refusal to turn/algorithm Moisture: Moist Moisture Interventions: Urinary alternatives, Minimize chux/linen layers, Keep folds dry/interdry/nystatin, and Change gown/bath/hygiene Activity: Bedfast Activity Interventions: Reposition every 2 hours and Low air loss mattress Nutrition: Excellent Mobility: Very Limited Mobility Interventions: Turning every 2 hrs, TAPS, and Low air loss support Friction and Shear: Potential Problem Friction and Shear Interventions: Limit head of bed <30 degrees, Use knee gatch to prevent slide, and Protect heels and elbows from friction/slide Total Jose A Score: 14: pt refused turns, prefers left side. Boosted with Hover Bhargav x1. T- Telemetry: No tele E- Emotional & Neuro: Participating in cares and Refusing cares Education provided and Escalated to battery charger conveyor line Neuro Alert and Oriented R- Respiratory: On room air H- Head OUT of Bed & Activity: Activate Fall Alert? (Enter 1 or 0): 1 Ambulating bedbound. Refused turns. Educated on pressure prevention/care Early mobility Phases 1-4: Phase 1: Bed Mobility U- Urologic/bowel: Size: Large (10/18/2023 6:31 PM) Voiding PureWick. Incontinent. Had BM G- Glycemic Control: Not applicable T- Treatment: Pain management. Wound care. Skin cares. PT.OT. Placement. I- Invasive Devices: Not applicable D- Discharge: Awaiting placement. * Rusty Pugh RN - 10/18/2023 2:48 PM CDT Med-Surg Care Progression Note Type: Shift to shift summary Length of stay: 0 days Code Status: Full Code Primary Problem: Ambulatory dysfunction Summary:Wound care completed to buttocks this shift. Patient prefers to lay on her left side and becomes increasing agitated with positioning changes. Staff educated patient on importance of frequentpositioning changes. 2 new additional wounds noted to buttocks appeared to be moisture/incontinent related. F- Feeding & Fluids: Tolerating a regular diet and thin liquids. A- Analgesic & Anticoagulation: Analgesic PRN tylenol and ibuprofen. Scheduled lidocaine patches. Anticoagulation/DVT prevention & plan Lovenox. S- Skin: Jose A Subcategory Concern(s): Sensory Perception: Slightly Limited Sensory Interventions:Appropriate support surface and Refusal to turn/algorithm Moisture: Moist Moisture Interventions: Urinary alternatives and Keep folds dry/interdry/nystatin Activity: Bedfast Activity Interventions: Reposition every 2 hours- attempted. Pt refusal. Nutrition: Adequate Nutrition Interventions: Calorie intake Mobility: Very Limited Mobility Interventions: Turning every 2 hrs Friction and Shear: Potential Problem Friction and Shear Interventions: Limit head of bed <30 degrees Total Jose A Score: 13: Multiple wounds. 2 new wounds noted to buttocks. Wound care completed to buttocks this AM. Attempted to turn patient q2hrs, but patient refuses to reposition. She prefers to lay on her left side. T- Telemetry: No tele E- Emotional & Neuro: Participating in cares; agitated at times, and refuses repositioning. Neuro Alert and Oriented R- Respiratory: On room air H- Head OUT of Bed & Activity: Activate Fall Alert? (Enter 1 or 0): 1 Encouraged frequent repositioning. Utilize hover mat. U- Urologic/bowel: Size: Large (2023 11:00 AM) Voiding via purewick. G- Glycemic Control: Not applicable T- Treatment: Pain control, wound care, PT/OT, and placement. I- Invasive Devices: no access D- Discharge: TBD. Pending placement. * Robi Calle RN - 10/18/2023 8:13 AM CDT Med-Surg Care Progression Note Type: Shift to shift summary Length of stay: 0 days Code Status: Full Code Primary Problem: Ambulatory dysfunction Summary:Pt alert, oriented and forgetful. She prefers to lay on her left side only. She refuses to be turned and repositioned. She says, you can't change a person who has been doing this for a long time. Dressing changed to coccyx wound. Interdry changed and pannus cleansed. She was quite difficult and uncooperative to reposition so race and sports book writer can change the dressing. Nystatin powder to under both breast. She is very anxious and requests to know every detail when staff is in the room. She does not like her table to be moved and touched. She reported LLE pain and was given ibuprofen which was effective. No acute changes overnight. F- Feeding & Fluids: Tolerating regular diet , thin liquids. She is seen eating snacks throughout the night. A- Analgesic & Anticoagulation: Analgesic PRN tylenol and 1x dose of ibuprofen given Anticoagulation/DVT prevention & plan Anticoagulant plan Lovenox S- Skin: Jose A Subcategory Concern(s): Sensory Perception: Slightly Limited Sensory Interventions:Appropriate support surface and Pain control Moisture: Moist Moisture Interventions: Minimize chux/linen layers and Keep folds dry/interdry/nystatin Activity: Bedfast Activity Interventions: Reposition every 2 hours and Low air loss mattress Nutrition: Adequate Nutrition Interventions: Calorie intake Mobility: Very Limited Mobility Interventions: Turning every 2 hrs and Low air loss support Friction and Shear: Potential Problem Friction and Shear Interventions: Use knee gatch to prevent slide and Protect heels and elbows from friction/slide Total Jose A Score: 13: Turn & repo with assist of 2 with hovermat T- Telemetry: No tele E- Emotional & Neuro: Participating in cares Neuro Alert and Oriented R- Respiratory: On room air H- Head OUT of Bed & Activity: Activate Fall Alert? (Enter 1 or 0): 1 No OOB activity Early mobility Phases 1-4: Phase 1: Bed Mobility U- Urologic/bowel: Size: Large (2023 11:00 AM) Voiding incontinent G- Glycemic Control: Not applicable T- Treatment: Labs Vitals, pain monitor, wound-care, Safety, PT/OT, Placement I- Invasive Devices: None D- Discharge: Pending placement * Darin Caba PA-C - 10/18/2023 7:49 AM CDT Images from the original note were not included. 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 She is unable to care for herself safely due to immobility and recent status of being functionally bed bound. Principal Problem: Ambulatory dysfunction Ambulatory dysfunction related to osteoarthritis, morbid obesity - PT OT and CM consultations; OT for SLUMS () - May need to more specifically explore insight for capacity if continued stated beliefs of abilityto transfer home Diarrhea, improved Dyspepsia, improved Nausea, improved Possible gastritis. No significant associated signs/symptoms of fever, chills, abd pain. Other current considerations include that patient may be having decreasing bowel control with progressive deconditioning over the past multiple months of being essentially bed-bound. 10/16: Appears improved with consistent improvement into 10/17. - Symptomatic management - Holding iron supplement d/t possible AE causing symptoms - Fiber supplement added - PRN Pepto-bismol, Tums for dyspepsia - Enteric panel canceled SUZIE - Restarted iron supplement every other day Stage 4 pressure wound on coccyx - WOCN involvement appreciated - Continue to monitor for benefit of replacement of covarrubias catheter for wound care purposes - Pt with minimal participation in bed mobility, providing conflicting reports from nursing team and therapy notes. Reinforced concerns for further pressure sores and patien expresses understanding Osteoarthritis with ambulatory difficulties Chronic pain Previously on MS contin which was changed to Buprenorphine at last TCU. This was then discontinued at recent hospitalization d/t concerns of sedation and inconsistent use. Patient has continued off of narcotic treatment since this time. - Scheduled celecoxib, duloxetine - Cont lidoderm patch - APAP PRN - Goal to avoid narcotic analgesic given sedation/fatigue effects before and lack of acute pain syndrome Osteopenia Recent fall with L knee bruising - noted on XR. - as ongoing pain in L knee limiting mobility, has been offered to check MRI knee for suspected ligament injury but patient declines due to severe claustrophobia. Panic/Anxiety disorder - Cont WINE SALES REPRESENTATIVE cymbalta - BZD were stopped during past hospitalization and this appears reasonable to promote improved energy/fatigue - Cont to monitor Morbid obesity Chronic lymphedema - front end assistant - lasix 20 mg daily (with Kcl 10 meq daily); continued with daily K/Cre labs Candidal skin infection - on nystatin topical WINE SALES REPRESENTATIVE through 10/25, continued Seborrheic dermatitis - Cont topical cortisone Code Status: Full FEN: Regular DVT Prophylaxis: LMWH GI Prophylaxis: None Access: PIV Restraints: None Care team communication: Discussed case during interdisciplinary rounds with CM/HAILEY, RN, fish warden. Additionally discussed case with SOL ZELAYA Family communication: None present. D/w pt directly Discharge Planning: Medically stable, pending placement. Patient appears largely unable to take care of self, so any strong interest in ability to safely return home should prompt further capacity assessment. SUBJECTIVE: Pt seen at bedside. Reports knee pain overnight. GI symptoms remain controlled. Reviewed recommendation for PO iron supplement. Pt is agreeable with this. No other questions outside of placement options at this time. OBJECTIVE: BP 138/64 Pulse (!) 103 Temp 97.5 ??F (36.4 ??C) Resp 18 Ht 5' 4.17 (1.63 m) Wt (!) 137.4 kg (303 lb) SpO2 94% BMI 51.73 kg/m?? O2 Delivery Source: Room Air Wt Readings from Last 2 Encounters: 10/13/23 (!) 137.4 kg (303 lb) Temp (24hrs), Av.6 ??F (36.4 ??C), Min:97.5 ??F (36.4 ??C), Max:97.7 ??F (36.5 ??C) Body mass index is 51.73 kg/m??. General Appearance: Awake, alert, oriented, questionable insight, morbidly obese, and in NAD. HEENT: Head: atraumatic, normocephalic. Eyes: normal lids and conjunctiva, sclereae anicteric, PERRL, EOMs intact. Oropharynx: oral mucosa pink and moist. NECK: Supple, trachea midline RESPIRATORY: Lungs clear to auscultation bilaterally, no wheeze, crackles, or ronchi. Normal respiratory effort. Symmetric chest expansion. CARDIOVASCULAR: RRR, without murmur, rubs, or gallops. ABDOMEN: Soft, non-tender, non-distended. Normal bowel sounds present throughout. SKIN: Warm, dry, and intact. No rashes or bruising. NEURO: Patient moves all extremities. No focal deficit. EXTREMITIES: Largely edematous legs without pitting and noted sclerosis consistent with chronic edema and lymphedema. Without cyanosis. PROCEDURES: None IMAGING: None LABS: Recent Labs 10/16/23 0505 10/17/23 0401 10/17/23 1104 CREATININE 1.00 -- 0.94 POTASSIUM 4.3 -- 4.2 HEMOGLOBIN -- 9.5* -- PLATELETCT -- 211 -- Additional comments: I reviewed the patient's new clinical lab test results. I reviewed the patient's medications. I have discussed this patient's care with Dr. Holcomb on 10/18/2023. Darin Caba PA-C [facility], [facility] Available through [employer] 8:00AM-6:00PM * Lidia Lguo RN - 10/17/2023 3:07 PM CDT Med-Surg Care Progression Note Type: Shift to shift summary Length of stay: 0 days Code Status: Full Code Primary Problem: Ambulatory dysfunction Summary:Pt is alert & oriented, no out of bed activity this shift, pt declines repositioning, after a lot of encouragement, pt agrees to turn & repo x 1 for a few minutes and returns back to her left side. Tylenol given for left knee pain with some relief, wound-care done. F- Feeding & Fluids: Tolerating regular diet A- Analgesic & Anticoagulation: Analgesic Tylenol Anticoagulation/DVT prevention & plan Anticoagulant plan Lovenox S- Skin: Jose A Subcategory Concern(s): Sensory Perception: Slightly Limited Sensory Interventions:Appropriate support surface and Pain control Moisture: Moist Moisture Interventions: Minimize chux/linen layers and Keep folds dry/interdry/nystatin Activity: Chairfast Activity Interventions: Reposition every 2 hours and Low air loss mattress Nutrition: Excellent Nutrition Interventions: Calorie intake Mobility: Very Limited Mobility Interventions: Turning every 2 hrs and Low air loss support Friction and Shear: Problem Friction and Shear Interventions: Use knee gatch to prevent slide and Protect heels and elbows from friction/slide Total Jose A Score: 14: Turn & repo with assist of 2 T- Telemetry: No tele E- Emotional & Neuro: Participating in cares Neuro Alert and Oriented R- Respiratory: On room air H- Head OUT of Bed & Activity: Activate Fall Alert? (Enter 1 or 0): 1 No OOB activity Early mobility Phases 1-4: Phase 1: Bed Mobility U- Urologic/bowel: Size: Large (2023 11:00 AM) Voiding incontinent G- Glycemic Control: Not applicable T- Treatment: Labs Vitals, pain monitor, wound-care, Safety, PT/OT, Placement I- Invasive Devices: PIV D- Discharge: TBD * Darin Caba PA-C - 10/17/2023 8:15 AM CDT Images from the original note were not included. 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 She is unable to care for herself safely due to immobility and recent status of being functionally bed bound. Principal Problem: Ambulatory dysfunction Ambulatory dysfunction related to osteoarthritis, morbid obesity - PT OT and CM consultations; OT for SLUMS eval could be helpful - May need to more specifically explore insight for capacity if continued stated beliefs of abilityto transfer home (unknown when pt could last stand or if there is home to return to acutely) Diarrhea Dyspepsia Nausea Possible gastritis. No significant associated signs/symptoms of fever, chills, abd pain. Other current considerations include that patient may be having decreasing bowel control with progressive deconditioning over the past multiple months of being essentially bed-bound. - Symptomatic management - Holding iron supplement d/t possible AE causing symptoms - Fiber supplement added - PRN Pepto-bismol, Tums for dyspepsia - Enteric panel canceled SUZIE - Possible poor tolerance to iron supplementation (see above) - Holding PO iron until stable improved symptoms above. May restart as QoD frequency - Rechecking iron status Stage 4 pressure wound on coccyx - WOCN involvement appreciated - Continue to monitor for benefit of replacement of covarrubias catheter for wound care purposes Osteoarthritis with ambulatory difficulties Chronic pain Previously on MS contin which was changed to Buprenorphine at last TCU. This was then discontinued at recent hospitalization d/t concerns of sedation and inconsistent use. Patient has continued off of narcotic treatment since this time. - Scheduled celecoxib, duloxetine - Cont lidoderm patch - APAP PRN - Goal to avoid narcotic analgesic given sedation/fatigue effects before and lack of acute pain syndrome Osteopenia Recent fall with L knee bruising - noted on XR. - as ongoing pain in L knee limiting mobility, offered to check MRI knee for suspected ligament injury but patient declines due to severe claustrophobia. Panic/Anxiety disorder - Cont WINE SALES REPRESENTATIVE cymbalta - BZD were stopped during past hospitalization and this appears reasonable to promote improved energy/fatigue - Cont to monitor Morbid obesity Chronic lymphedema - front end assistant - lasix 20 mg daily (with Kcl 10 meq daily); continued with daily K/Cre labs Candidal skin infection - on nystatin topical WINE SALES REPRESENTATIVE through 10/25, continued Seborrheic dermatitis - Cont topical cortisone Code Status: Full FEN: Regular DVT Prophylaxis: LMWH GI Prophylaxis: None Access: PIV Restraints: None Care team communication: Discussed case during interdisciplinary rounds with CM/HAILEY, RN, fish warden. Additionally discussed case with OSL ZELAYA Family communication: None present. D/w pt directly Discharge Planning: Medically stable, pending placement. Patient appears largely unable to take care of self, so any strong interest in ability to safely return home should prompt further capacity assessment. SUBJECTIVE: Pt resting in bed. Reports improved abdominal symptoms. Primary concern today is to reduce lab checks and remove IV d/t discomfort. OBJECTIVE: BP (!) 142/77 Pulse 99 Temp 97.6 ??F (36.4 ??C) Resp 19 Ht 5' 4.17 (1.63 m) Wt (!) 137.4kg (303 lb) SpO2 94% BMI 51.73 kg/m?? O2 Delivery Source: Room Air Wt Readings from Last 2 Encounters: 10/13/23 (!) 137.4 kg (303 lb) Temp (24hrs), Av.6 ??F (36.4 ??C), Min:97.2 ??F (36.2 ??C), Max:97.9 ??F (36.6 ??C) Body mass index is 51.73 kg/m??. General Appearance: Awake, alert, oriented, questionable insight, morbidly obese, and in NAD. HEENT: Head: atraumatic, normocephalic. Eyes: normal lids and conjunctiva, sclereae anicteric, PERRL, EOMs intact. Oropharynx: oral mucosa pink and moist. NECK: Supple, trachea midline RESPIRATORY: Lungs clear to auscultation bilaterally, no wheeze, crackles, or ronchi. Normal respiratory effort. Symmetric chest expansion. CARDIOVASCULAR: RRR, without murmur, rubs, or gallops. ABDOMEN: Soft, non-tender, non-distended. Normal bowel sounds present throughout. SKIN: Warm, dry, and intact. No rashes or bruising. NEURO: Patient moves all extremities. No focal deficit. EXTREMITIES: Largely edematous legs without pitting and noted sclerosis consistent with chronic edema and lymphedema. Without cyanosis. PROCEDURES: None IMAGING: None LABS: Recent Labs 10/15/23 0459 10/16/23 0505 10/17/23 0401 CREATININE 0.97 1.00 -- POTASSIUM 4.1 4.3 -- HEMOGLOBIN -- -- 9.5* PLATELETCT -- -- 211 Additional comments: I reviewed the patient's new clinical lab test results. I reviewed the patient's medications. I have discussed this patient's care with Dr. Snyder on 10/17/2023. Darin Caba PA-C [facility] Hospitalist, [facility] Available through [employer] 8:00AM-6:00PM * Viki Massey RN - 10/17/2023 6:02 AM CDT Med-Surg Care Progression Note Type: Shift to shift summary Length of stay: 0 days Code Status: Full Code Primary Problem: Ambulatory dysfunction Summary:Pt has not been able to sleep much shift. C/o pain to her knee and back. Medicated with prntylenol with relief. Pt requested something to help her sleep. notified and ordered melatonin. F- Feeding & Fluids: Tolerating regular diet A- Analgesic & Anticoagulation: Analgesic Tylenol given for pain Anticoagulation/DVT prevention & plan Anticoagulant plan Lovenox S- Skin: Jose A Subcategory Concern(s): Sensory Perception: Slightly Limited Sensory Interventions:Appropriate support surface and Pain control Moisture: Moist Moisture Interventions: Minimize chux/linen layers, Keep folds dry/interdry/nystatin, and Change gown/bath/hygiene Activity: Chairfast Activity Interventions: Reposition every 2 hours, Limited supine (reposition every 1 hour in chair), Appropriate surface in while in chair, and Safer bundle Nutrition: Excellent Mobility: Very Limited Mobility Interventions: Turning every 2 hrs Friction and Shear: Problem Friction and Shear Interventions: Protect heels and elbows from friction/slide Total Jose A Score: 14: Turn and repo T- Telemetry: No tele E- Emotional & Neuro: Participating in cares Neuro Alert and Oriented R- Respiratory: On room air H- Head OUT of Bed & Activity: Activate Fall Alert? (Enter 1 or 0): 1 NO OOB activities this shift. Early mobility Phases 1-4: Phase 1: Bed Mobility U- Urologic/bowel: Size: Large (2023 11:00 AM) Voiding purewick G- Glycemic Control: Not applicable T- Treatment: Labs, vitals, wound-care, safety, PT/OT, Placement I- Invasive Devices: PIV SL D- Discharge: TBD * Annamaria Sandoval RN - 10/16/2023 10:26 PM CDT Brief shift update: [id number] Pt's po care complete. Skin fold areas cleansed. Changed bedding. New purewick in place. Reordered powders for skin. Applied powder, creams, and interdry. Pt prefers to lay on her left side. L sideunder breast macerated to the point of tissue breakdown. fish warden notified. Encouraged pt to shiftweight to right but will not. Pt very anxious and particular with cares. No BM this shift- task. -Sania Hernandez, JOHN * Lidia Lugo RN - 10/16/2023 3:19 PM CDT Med-Surg Care Progression Note Type: Shift to shift summary Length of stay: 0 days Code Status: Full Code Primary Problem: Ambulatory dysfunction Summary:Pt is alert & oriented, stayed in bed through this shift, pt declines repositioning, turn & repo x 1 after a lot of encouragement for a few minutes and turns back to her left side: ptsays laying on her left side is less painful & comfortable for her. Pt had a large bm, wound-care done. F- Feeding & Fluids: Tolerating regular diet A- Analgesic & Anticoagulation: Analgesic Tylenol Anticoagulation/DVT prevention & plan Anticoagulant plan Lovenox S- Skin: Jose A Subcategory Concern(s): Sensory Perception: Slightly Limited Sensory Interventions:Appropriate support surface and Pain control Moisture: Occasionally Moist Moisture Interventions: Minimize chux/linen layers and Keep folds dry/interdry/nystatin Activity: Chairfast Activity Interventions: Reposition every 2 hours and Low air loss mattress Nutrition: Adequate Nutrition Interventions: Calorie intake Mobility: Very Limited Mobility Interventions: Turning every 2 hrs and Low air loss support Friction and Shear: Problem Friction and Shear Interventions: Use knee gatch to prevent slide and Protect heels and elbows from friction/slide Total Jose A Score: 14: Turn & repo T- Telemetry: No tele E- Emotional & Neuro: Participating in cares Neuro Alert and Oriented R- Respiratory: On room air H- Head OUT of Bed & Activity: Activate Fall Alert? (Enter 1 or 0): 1 No OOB activity Early mobility Phases 1-4: Phase 1: Bed Mobility U- Urologic/bowel: Size: Large (2023 11:00 AM) Voiding incontinent G- Glycemic Control: Not applicable T- Treatment: Labs Vitals, wound-care, Safety, PT/OT, Placement I- Invasive Devices: PIV D- Discharge: TBD * Darin Caba PA-C - 10/16/2023 2:16 PM CDT Images from the original note were not included. 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 She is unable to care for herself safely due to immobility and recent status of being functionally bed bound. Principal Problem: Ambulatory dysfunction Ambulatory dysfunction related to osteoarthritis, morbid obesity - PT OT and CM consultations; OT for SLUMS eval - May need to more specifically explore insight for capacity if continued stated beliefs of abilityto transfer home (unknown when pt could last stand or if there is home to return to acutely) Diarrhea Dyspepsia Nausea Possible gastritis. No significant associated signs/symptoms of fever, chills, abd pain. Other current considerations include that patient may be having decreasing bowel control with progressive deconditioning over the past multiple months of being essentially bed-bound. 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 This was then discontinued at recent hospitalization d/t concerns of sedation and inconsistent use. Patient has continued off of narcotic treatment since this time. - Scheduled celecoxib, duloxetine - Added lidoderm patch - APAP PRN - Goal to avoid narcotic analgesic given sedation/fatigue effects before and lack of acute pain syndrome panic/anxiety disorder - Cont WINE SALES REPRESENTATIVE cymbalta - BZD were stopped during past hospitalization and this appears reasonable to promote improved energy/fatigue - Cont to monitor osteopenia Recent fall with L knee bruising - noted on XR. - as ongoing pain in L knee limiting mobility, offered to check MRI knee for suspected ligament injury but patient declines due to severe claustrophobia. morbid obesity Chronic lymphedema - front end assistant - lasix 20 mg daily (with Kcl 10 meq daily); continued with daily K/Cre labs Candidal skin infection - on nystatin topical WINE SALES REPRESENTATIVE through 10/25, continued Seborrheic dermatitis - Cont topical cortisone Code Status: Full FEN: Regular DVT Prophylaxis: LMWH GI Prophylaxis: None Access: PIV Restraints: None Care team communication: Discussed case during interdisciplinary rounds with CM/HAILEY, RN, fish warden. Additionally discussed case with SOL ZELAYA Family communication: None present. D/w pt Discharge Planning: Medically stable, pending placement. Patient appears largely unable to take care of self, so any strong interest in ability to safely return home should prompt further capacity assessment. SUBJECTIVE: Pt with ongoing stools with occasional diarrhea. Pt distressed by incontinence and need for being cleaned up. She wishes to have anti-diarrheal treatment. She describes prior stool pattern of ~3 times per week as their ideal. These goals appear to be related to pt concerns with dignity with clean-up and with perceived frustration staff may have from repeated clean-up. OBJECTIVE: BP 130/76 Pulse 90 Temp 97.2 ??F (36.2 ??C) Resp 16 Ht 5' 4.17 (1.63 m) Wt (!) 137.4 kg (303 lb) SpO2 95% BMI 51.73 kg/m?? O2 Delivery Source: Room Air Wt Readings from Last 2 Encounters: 10/13/23 (!) 137.4 kg (303 lb) Temp (24hrs), Av.7 ??F (36.5 ??C), Min:97.2 ??F (36.2 ??C), Max:98 ??F (36.7 ??C) Body mass index is 51.73 kg/m??. General Appearance: Awake, alert, oriented, questionable insight, morbidly obese, and in NAD. HEENT: Head: atraumatic, normocephalic. Eyes: normal lids and conjunctiva, sclereae anicteric, PERRL, EOMs intact. Oropharynx: oral mucosa pink and moist. NECK: Supple, trachea midline RESPIRATORY: Lungs clear to auscultation bilaterally, no wheeze, crackles, or ronchi. Normal respiratory effort. Symmetric chest expansion. CARDIOVASCULAR: RRR, without murmur, rubs, or gallops. ABDOMEN: Soft, non-tender, non-distended. Normal bowel sounds present throughout. SKIN: Warm, dry, and intact. No rashes or bruising. NEURO: Patient moves all extremities. No focal deficit. EXTREMITIES: Largely edematous legs without pitting and noted sclerosis consistent with chronic edema and lymphedema. Without cyanosis. PROCEDURES: None IMAGING: None LABS: Recent Labs 10/13/23 1832 10/14/23 0529 10/15/23 0459 10/16/23 0505 CREATININE 1.15* 1.01 0.97 1.00 CALCIUMSERUM 9.6 -- -- -- SODIUM 139 -- -- -- POTASSIUM 4.3 3.9 4.1 4.3 CARBONDIOXI 30 -- -- -- ANIONGAP 6.0 -- -- -- WBC 5.5 -- -- -- HEMOGLOBIN 10.4* 9.5* -- -- HEMATOCRIT 32.4* -- -- -- PLATELETCT 251 226 -- -- GLUCOSE 100 -- -- -- Additional comments: I reviewed the patient's new clinical lab test results. I reviewed the patient's medications. I have discussed this patient's care with Dr. Lange on 10/16/2023. Darin Caba PA-C [facility] Hospitalist, W2[facility]3 [facility] Available through [employer] 8:00AM-6:00PM * Viki Massey RN - 10/16/2023 5:29 AM CDT Med-Surg Care Progression Note Type: Shift to shift summary Length of stay: 0 days Code Status: Full Code Primary Problem: Ambulatory dysfunction Summary:Pt hs been refusing turn and repositions. Pt got anxious and started to cry when told we were going to clean her up and change her purewick. Was able to clean up and change her bed sheet as well as change her purewick and mepilex . F- Feeding & Fluids: Tolerating regular diet A- Analgesic & Anticoagulation: Analgesic Tylenol given Anticoagulation/DVT prevention & plan Anticoagulant plan Lovenox S- Skin: Jose A Subcategory Concern(s): Sensory Perception: Slightly Limited Sensory Interventions:Pain control Moisture: Occasionally Moist Moisture Interventions: Urinary alternatives, Minimize chux/linen layers, Keep folds dry/interdry/nystatin, and Change gown/bath/hygiene Activity: Chairfast Activity Interventions: Reposition every 2 hours, Limited supine (reposition every 1 hour in chair), Low air loss mattress, and Safer bundle Nutrition: Adequate Nutrition Interventions: Tube feedings Mobility: Very Limited Mobility Interventions: Turning every 2 hrs and Low air loss support Friction and Shear: Problem Friction and Shear Interventions: Limit head of bed <30 degrees, Useknee gatch to prevent slide, and Protect heels and elbows from friction/slide Total Jose A Score: 14: Turn and repo T- Telemetry: No tele E- Emotional & Neuro: Participating in cares Neuro Alert and Oriented R- Respiratory: On room air H- Head OUT of Bed & Activity: Activate Fall Alert? (Enter 1 or 0): 1 1U- Urologic/bowel: Size: Large (2023 11:00 AM) Voiding incontinent G- Glycemic Control: Not applicable T- Treatment: Labs Vitals, wound-care, Safety, PT/OT, Placement I- Invasive Devices: PIV SL D- Discharge: TBD * Darin Caba PA-C - 2023 4:32 PM CDT Images from the original note were not included. HOSPITALIST DIVISION PROGRESS NOTE Chart reviewed Admit date: 10/13/2023 CC: Placement INTERVAL Hx: C/o diarrhea and nausea which is new *PRN Zofran *Added fiber supplement *Can check enteric panel if cont diarrhea ASSESSMENT/PLAN: Gracia Louise is a 67 y/o F with a PMH of SUZIE, stage 4 pressure wound on coccyx, osteoarthritis with ambulatory difficulties, chronic pain recently on buprenorphine, osteopenia, morbid obesity, chronic lymphedema, panic/anxiety disorder who presented to [facility] 10/13/2023 after leaving LTC facility AMA to seek new placement. She is unable to care for herself safely due to immobility and recent status of being functionally bed bound. Principal Problem: Ambulatory dysfunction Ambulatory dysfunction related to osteoarthritis, morbid obesity - PT OT and CM consultations; OT for SLUMS eval - May need to more specifically explore insight for capacity if continued stated beliefs of abilityto transfer home (unknown when pt could last stand or if there is home to return to acutely) Diarrhea Dyspepsia Nausea Possible gastritis. No significant associated signs/symptoms of fever, chills, abd pain. 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 This was then discontinued at recent hospitalization d/t concerns of sedation and inconsistent use. Patient has continued off of narcotic treatment since this time. - Scheduled celecoxib, duloxetine - Added lidoderm patch - APAP PRN - Goal to avoid narcotic analgesic given sedation/fatigue effects before and lack of acute pain syndrome panic/anxiety disorder - Cont WINE SALES REPRESENTATIVE cymbalta - BZD were stopped during past hospitalization and this appears reasonable to promote improved energy/fatigue - Cont to monitor osteopenia Recent fall with L knee bruising - noted on XR. - as ongoing pain in L knee limiting mobility, offered to check MRI knee for suspected ligament injury but patient declines due to severe claustrophobia. morbid obesity Chronic lymphedema - front end assistant - lasix 20 mg daily (with Kcl 10 meq daily); continued with daily K/Cre labs Candidal skin infection - on nystatin topical WINE SALES REPRESENTATIVE through 10/25, continued Seborrheic dermatitis - Cont topical cortisone Code Status: Full FEN: Regular DVT Prophylaxis: LMWH GI Prophylaxis: None Access: PIV Restraints: None Care team communication: Discussed case during interdisciplinary rounds with CM/SW, RN, fish warden. Additionally discussed case with SOL ZELAYA Family communication: None present. D/w pt Discharge Planning: Medically stable, pending placement. Patient appears largely unable to take care of self, so any strong interest in ability to safely return home should prompt further capacity assessment. SUBJECTIVE: Patient noting diarrhea and upset stomach today. She does not want to do any activity while feelingunwell. Denies abdominal pain, food intolerance, similar symptoms WINE SALES REPRESENTATIVE. Denies fever, chills, diaphoresis. OBJECTIVE: BP (!) 141/69 Pulse 91 Temp 98 ??F (36.7 ??C) Resp 16 Ht 5' 4.17 (1.63 m) Wt (!) 137.4 kg (303 lb) SpO2 94% BMI 51.73 kg/m?? O2 Delivery Source: Room Air Wt Readings from Last 2 Encounters: 10/13/23 (!) 137.4 kg (303 lb) Temp (24hrs), Av.8 ??F (36.6 ??C), Min:97.4 ??F (36.3 ??C), Max:98 ??F (36.7 ??C) Body mass index is 51.73 kg/m??. General Appearance: Awake, alert, oriented, questionable insight, morbidly obese, and in NAD. HEENT: Head: atraumatic, normocephalic. Eyes: normal lids and conjunctiva, sclereae anicteric, PERRL, EOMs intact. Oropharynx: oral mucosa pink and moist. NECK: Supple, trachea midline RESPIRATORY: Lungs clear to auscultation bilaterally, no wheeze, crackles, or ronchi. Normal respiratory effort. Symmetric chest expansion. CARDIOVASCULAR: RRR, without murmur, rubs, or gallops. ABDOMEN: Soft, non-tender, non-distended. Normal bowel sounds present throughout. SKIN: Warm, dry, and intact. No rashes or bruising. NEURO: Patient moves all extremities. No focal deficit. EXTREMITIES: Largely edematous legs without pitting and noted sclerosis consistent with chronic edema and lymphedema. Without cyanosis.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 ET: Called, race and sports book writer got transferred to admissions, no answer, LVM requesting a call back. Linotypist also sent an encrypted email to their admission coordinator at [email or web address] Continued Care and Services - Admitted Since 10/13/2023 Destination Service Provider Request Status Selected Services Address Phone Fax Patient Preferred [facility] Accepted N/A [id number] [facility] [place] [phone] -- Internal Comment last updated by Bambi Alba RN 10/20/2023 1601 10/19 RN ET: This facility is willing to accept pt. [facility] Pending - No Request Sent N/A [id number] [facility] [phone] -- Internal Comment last updated by Bambi Alba RN 10/20/2023 1553 10/19 RN ET: Called, no answer, LVM requesting a call back. Referral packet faxed. [facility] Pending - No Request Sent N/A [id number] [facility] [phone] -- Internal Comment last updated by Bambi Alba RN 10/20/2023 1551 10/19 RN ET: Called, no answer, LVM requesting a call back. Referral packet faxed. Bambi Gilmore RN, BSN seo associate 10/20/2023 3:54 PM Pager: [phone] Secure Chat or Pager * Sheldon Ordaz RN - 10/19/2023 10:11 PM CDT Problem: Mobility - Impaired Goal: Demonstrates ability to perform physical activity independently or with assistive devices as needed Outcome: Ongoing Problem: Falls/Injury-Risk of Goal: Absence of Falls/Injury Outcome: Met this shift * Bambi Alab RN - 10/19/2023 9:23 AM CDT Problem: Discharge Planning Goal: Establish appropriate post-hospitalization placement Outcome: Ongoing Flowsheets (Taken 10/19/2023 09) Date of Last CM Visit: 10/19/23 Care Management - Progress Note Patient's chart reviewed. Patient discussed in rounds. Overview: Diagnosis: Ambulatory Dysfunction. Therapies following. Anticipated Discharge Date: TBD Anticipated Discharge Needs: TCU vs Home with HC Case Management Barriers: TCU Bed Availability and patient's history of leaving TCU facilities AMA Care Coordination Plan & Communication with Patient/Family: Linotypist spoke with patient's community CM, Johana (p. [phone]). Per Johana, she has been [facility] at [facility]. Per Johana, patient has an Elderly Waiver that is currently on hold until patient discharges back into the community to resume. Johana states patient's home is not safe for a lift set-up. Johana also states that she has followed up with patient's boyfriend and neighbor and they are not available to help her like she claims they can. Johana states patient is not receiving SIGNAL AND COMMUNICATIONS MAINTAINER services at this time, but could qualify for it, but it will take a while before a SIGNAL AND COMMUNICATIONS MAINTAINER is assigned to the patient for cares. Johana works from Wednesday to Wednesday from [phone]. Johana states she is available to help as able. Linotypist explained to Johana thatat this time patient is only open to three TCUs near her home in [place], [place], and two of the three places have already declined. Johana states the locations in [place], [place] have a weight limit. Wr iter verbalized understanding. Advertising Account Executive: Johana Perez Email: [email or web address] Linotypist followed up on TCU referrals as listed below. CM team to continue to follow. [facility]-PENDING [address] [place] [address] P: F: [phone] 10/13 RN ET: Called, no answer, LVM requesting a call back. Referral packet faxed. 10/14 RN ET: Called, no answer, LVM requesting a call back. 10/15 SW KK: Disk Recordist states there are no admissions staff over the weekend 10/17 RN ET: Called, no answer, LVM requesting a call back, updated notes faxed to admissions. 10/18 RN ET: Called, no answer, LVM requesting a call back. [facility]-No referral sent yet, patient considering this placement, Facility Declined [address] [place] [address] P: [phone] F: unknown 10/15 SW KK: SW asked patient if we could send referral here, she will think about it. SW LVM with admissions/social science research assistant asking if they have openings 10/17 RN ET: Received a phone call from this facility stating they do not have any openings. [facility]-DECLINED [address] [place] [address] P: F: [phone] 10/13 RN ET: Called and spoke with admissions, referral packet faxed. 10/14 RN ET: Called, no answer, LVM requesting a call back. 10/14 1343 RN ET: Received a VM from [facility] facility they are declining patient due to patient's weight being over 295 lbs and they cannot meet her needs. Facility is full for the up coming weeks. Bambi Gilmore RN, BSN seo associate 10/19/2023 9:31 AM Pager: [phone] Secure Chat or Pager * Chula Avalos, OT - 10/18/2023 1:18 PM CDT Occupational Therapy Acute Treatment Patient Name: Gracia Louise Today's Date: 10/18/2023 Admission Date: 10/13/2023 ASSESSMENT/PLAN/RECOMMENDATIONS Assessment/Plan/Recommendations OT Assessment Results: Impaired ADLs, Impaired IADLs, Impaired cognition, Impaired strength, impaired UE function, Impaired balance, Impaired functional mobility, Impaired endurance Strengths: Prior level of function, Patient motivation, Patient cooperation Limitations/Discharge Barriers: Lack of discharge support, Pain, Increased dizziness with movement,Current medical status, Impaired cognition, Needs assist with ADL, Limited mobility, Decreased balance, Decreased strength, Decreased activity tolerance, Impaired judgment, Decreased safety awareness, Decreased caregiver support Rehab Potential: Fair Treatment Interventions: ADL retraining, IADL management, Functional transfer training, UE strengthening/ROM, Endurance training, Home safety education, Equipment evaluation/education, Compensatory technique education, Work simplification, Energy conservation OT Frequency: 1x/day, 3-5 days a week Discharge Support Recommendations: Requires increased assist/support Requires assist with the following ADLs: Grooming/hygiene, LE dressing, UE dressing, Toileting, Shower/bathing Requires assist with the following IADLs: Driving, Homemaking, Meal prep Post Acute Therapy Needs: Continued OT at Next Level of Care Patient Progress: Pt seen in room for OT treatment, agreeable to session but pt requesting to stay in bed. Completed SLUMS cognitive screen, pt scoring 19/30 indicating significant cognitive impairments. Pt then completed seated exercises while supine in bed x5 reps across 5 sets for BUE with level1 theraband, requiring modeling of exercises and min assist for form. Anticipate pt will require increased assistance following discharge. Will contine to follow acutely. Recommendations For Next Session: EOB activity, UE exercises INPATIENT REHAB FACILITY CANDIDATE Inpatient Rehabilitation Facility Candidate Appropriate for Acute Inpatient Rehab?: No Not appropriate due to: Low motivation GENERAL General Visit Type: Treatment Diagnosis: Admitted for placement Admission/Diagnosis Details: Presents today for evaluation of social service admit and knee pain. The patient reports [facility] into [facility]. The patient reports she refused all interventions while she was there. The patient reports she checked out AMA from [facility] this afternoon and wants to go to [facility], where she was previously. 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 PRECAUTIONS Precautions Precautions: Isolation Isolation Type: Contact SAFETY INTERVENTIONS Safety Interventions Fall Risk?: Yes Safety Interventions/Patient Disposition: Standard interventions, Bed alarm on, In bed, All needs within reach, Call light in hand PATIENT IS FUNCTIONING FOLLOWS: Cognition Additional Cognitive Assessments Additional Cognitive Assessments: SLUMS SLUMS Score (Out of 30): 19 The [facility] Mental Status Examination (UMS) is a brief 11 subtest cognitive screening tool. A score of 27-30 may be indicative of normal cognition. A score of 21-26 may be indicativeof mild neurocognitive deficits. A score of 1-20 may be indicative of significant neurocognitive deficits. Area of deficits include: Orientation and Attention 3/3 Calculation and Registration 3/3 Category Naming 2/3 Delayed Recall with Interference 2/5 Registration and Digit Span 1/2 Clock Drawing 0/4 Visual Spatial 2/2 Story Recall 6/8 The SLUMS is a screening tool alone and should be used in conjunction with functional/clinical assessment or further formal testing. Therapeutic Exercise Exercise UE Exercise: Pt completed x5 reps across 5 sets for the BUE using level 1 theraband. Exercises included elbow flexion/extension, shoulder flexion extension and diagional extension. OT modeled exercises to increase pt understanding, provided min verbal cues and min assist for proper form throughout exercises. Functional Activity Activity Tolerance Endurance: Participates 20-30 min of therapy session AM-PAC Outcome Measure 6 Clicks Daily ADL AM-PAC Putting on and taking off regular lower body clothing?: Total Bathing (including washing, rinsing, drying)?: Total Toileting, which includes using toilet, bedpan or urinal?: Total Putting on and taking off regular upper body clothing?: Total Taking care of personal grooming such as brushing teeth?: A Little Eating meals?: None [facility] Daily Activity Raw Score: 11 [facility] Daily Activity CMS 0-100% Score: 70.42 [facility] Daily Activity t-Scale Score: 29.04 The following scores are predictive of discharge disposition during acute hospitalization: Home= 20.1; Home with Home Health= 17.9; TCU=14; IRF=13.6; LTACH=11.5 Please refer to narrative for assessment of functional performance and discharge recommendations asscores may not always reflect mobility, cognitive aspects of performance or instrumental activitiesof daily living (IADLs) PATIENT EDUCATION TIME SPENT WITH PATIENT OT Timed Code Treatment Minutes OT Self-Care/Home Management: 27 OT Total Minutes Spent with Patient Total Minutes Spent With Patient (billable): 27 Minutes GOALS Time Frame Short term goals target date: 10/22/23 terminal operations supervisor goals target date: 10/27/23 Patient/Family Participation in Goal Setting Patient participated in goal setting: Unable STG Grooming Patient will complete daily grooming and light hygiene task: with supervision, while seated Outcome: Goal Ongoing STG LE Dressing Patient will dress lower body donning/doffing: socks, with moderate assist Outcome: Goal Ongoing STG Toileting Patient will complete toileting: with moderate assist Outcome: Goal Ongoing STG Cognition Patient will participate with further cognitive screen/assessment for treatment planning and discharge disposition recommendations: Goal Ongoing STG Upper Extremity (UE) As a method to improve strength/endurance for functional independence with ADLs, IADLs, functional mobility, and home safety, patient will complete home exercise program: using theraband, following handout Outcome: Goal Ongoing Ch[facility] Goals Patient will complete ADLs including: feeding, hygiene/grooming, dressing, toileting, with set-up/supervision Outcome: Goal Ongoing * Bambi Alba RN - 10/18/2023 9:54 AM CDT Problem: Discharge Planning Goal: Establish appropriate post-hospitalization placement Outcome: Ongoing Flowsheets (Taken 10/18/2023 0953) Date of Last CM Visit: 10/18/23 Care Management - Progress Note Patient's chart reviewed. Patient discussed in rounds. Overview: Diagnosis: Ambulatory Dysfunction. Therapies following. Anticipated Discharge Date: TBD Anticipated Discharge Needs: TCU vs Home with HC Case Management Barriers: TCU Bed Availability and patient's history of leaving TCU facilities AMA Care Coordination Plan & Communication with Patient/Family: Linotypist followed up with TCU referrals as listed below. CM team to continue to follow. Linotypist reached out to Johana [facility] manager medicare marketing, again, no answer, LVM requesting a call back. Per Johana's set-up, Johana's work hours are from Wednesday-Wednesday from [phone]. Advertising Account Executive: Johana Perez Email: [email or web address] [facility] [address] [place] [address] P: F: [phone] 10/13 RN ET: Called, no answer, LVM requesting a call back. Referral packet faxed. 10/14 RN ET: Called, no answer, LVM requesting a call back. 10/15 SW KK: Disk Recordist states there are no admissions staff over the weekend 10/17 RN ET: Called, no answer, LVM requesting a call back, updated notes faxed to admissions. [facility]-No referral sent yet, patient considering this placement, Facility Declined [address] [place] [address] P: [phone] F: unknown 10/15 SW KK: SW asked patient if we could send referral here, she will think about it. SW LVM with admissions/social science research assistant asking if they have openings 10/17 RN ET: Received a phone call from this facility stating they do not have any openings. [facility]-DECLINED [address] [place] [address] P: F: [phone] 10/13 RN ET: Called and spoke with admissions, referral packet faxed. 10/14 RN ET: Called, no answer, LVM requesting a call back. 10/14 1343 RN ET: Received a VM from TCU's facility they are declining patient due to patient's weight being over 295 lbs and they cannot meet her needs. Facility is full for the up coming weeks. Bambi Gilmore RN, BSN seo associate 10/18/2023 10:27 AM Pager: [phone] Secure Chat or Pager * Krystin Kelly V. - 10/16/2023 9:38 AM CDT Care Management - Progress Note Patient's chart reviewed. Patient discussed in rounds. Overview: Diagnosis: Ambulatory Dysfunction. Therapies following. Anticipated Discharge Date: TBD Anticipated Discharge Needs: TCU vs Home with HC Case Management Barriers: TCU Bed Availability and patient's history of leaving TCU facilities AMA Care Coordination Plan & Communication with Patient/Family: Linotypist followed up on TCU referralsas listed below. SW spoke with patient, she confirmed her plan is a TCU close to home or to go home with HH and support from her niece who lives close by and is a SIGNAL AND COMMUNICATIONS MAINTAINER. [facility]-[address] [address] P: F: [phone] 10/13 RN ET: Called and spoke with admissions, referral packet faxed. 10/14 RN ET: Called, no answer, LVM requesting a call back. 10/14 134 RN ET: Received a VM from TCU's facility they are declining patient due to patient's weight being over 295 lbs and they cannot meet her needs. Facility is full for the up coming weeks. [facility]END[facility] [address] [place] [address] P: F: [phone] 10/13 RN ET: Called, no answer, LVM requesting a call back. Referral packet faxed. 10/14 RN ET: Called, no answer, LVM requesting a call back. 10/15 HAILEY KK: Disk Recordist states there are no admissions staff over the weekend [facility]- No referral sent yet, patient considering this placement [address] [place] [address] P: [phone] F: unknown 10/15 HAILEY KK: SW asked patient if we could send referral here, she will think about it. HAILEY LVM with admissions/social science research assistant asking if they have openings Care Management will continue to follow SHAHID Matthews, SKIN FORMER * Gabrielle Ríos, PT - 2023 4:09 PM CDT Acute Physical Therapy Treatment Patient Name: Gracia Louise Today's Date: 2023 Admission Date: 10/13/2023 Precautions Precautions Precautions: Isolation Isolation Type: Contact Assessment PT Assessment/Recommendations Assessment: Pt only agreeable to bed level exercise today despite education on continued mobility to progress deficits. Pt reporting feeling limited by soft stools and nausea today. Pt stating still wanting to get to chair vs staying in bed though still declining attempt to sit EOB today. Pt performed 2x10 reps supine exercises with AAROM. Would recommend Ax2 using peg for transfer to chair or could order bariatric stretch chair to perform supine lateral transfer to chair using TAPS device. RN notified. Will continue to follow acutely to progress deficits. Recommendations for Nursing: Mobilize assist of 2 with gait belt, Mobilize with mechanical lift/stand, Up to chair 2-3x/day Mechanical lift/stand: Peg vs lateral slide transfer with TAPS device to bariatric stretch chair Discharge Support Recommendations: Requires increased support/assist Mobility Needs at Discharge: Assist of 2 people with mobility Post Acute Therapy Needs: Continued PT at next level of care Appropriate for Acute Inpatient Rehab?: No Not appropriate due to: Patient does not have the endurance to tolerate an intense therapy program of 3 hours of therapy a day, at least 5 days a week Encounter Details General Diagnosis: Admitted for placement Admission/Diagnosis Details: Presents today for evaluation of social service admit and knee pain. [facility] The patient reports she refused all interventions while she was there. The patient reports she checked out AMA from [facility] this afternoon and wants to go to [facility], where she was previously. 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, osteoarthritis with ambulatory difficulties, chronic pain recently on buprenorphine, osteopenia, morbid obesity, chronic lymphedema, panic/anxiety disorder Patient Seen In: Room Subjective Comments: Pt only agreeable to bed level exercises Lines and Tubes: PureWick Subjective/Social History Home Setup Type of Home: Transitional Care Unit Comment: Admitted from TCU Prior Level of Functional Mobility Needs Assistance with: All mobility Mobility Equipment Used: Peg History of falls: Pt denied Comment: Pt reported using peg lift most recently at [facility] and had been working on standing in parallel bars with therapy. Pain Patient complained of low back pain declining to roll. RN aware. Objective Cognitive Status Cognition Comments: Not formally assessed in session Therapy Vitals Vitals Comments: denied dizziness/ lightheadedness in session though reported worsening nausea; RN notified Therapeutic Activity Bed Mobility Bed Mobility Bed Mobility Comments: Declined OOB mobility today ans only agreeable to supine exercises. Miscellaneous Therapeutic Activity Therapeutic Activity: Activity 1 Activity 1: Pt expressing she wants to get to recliner chair over the weekend using EZ stand and PTprovided eduction on safety for staff/ pt along with falls risk. PT encouraged pt to work with therapies to attempt sitting EOB though pt declining stating limitations have soft stools and nausea today. Pt stating having a poor experience with rolling this morning. PT educated on use of peg lift to transfer to chair over the weekend which pt stated she did not like. Pt educated on possible transfer to bariatric cardiac chair to tranfers laterally though pt preservating on use of EX stand. Therapeutic Exercise Supine Supine Exercises: Ankle pumps, Quad sets, Heel slides, Hip abduction, Hip adduction Supine Exercise Comment: 2x10 reps AAROM; educated to perform while admitted to progress strength and avoid being completely immobile [facility] AM-PAC 6-Clicks Turning over in bed (including adjusting bed clothes, sheets, and blankets): Maximum/moderate assist Sitting down and standing up from a chair with arms: Total/dependent Moving from lying on back to sitting on the side of bed: Total/dependent Moving to and from a bed to a chair: Total/dependent Walk in hospital room?: Total/dependent Climbing 3-5 steps with a railing: Total/dependent AM-PAC 6 Clicks: Mobility Total Score: 7 The following scores are predictive of discharge disposition during acute hospitalization: Home= 20or greater; Home with Home Health=18; Continued skilled care at appropriate facility= 14 or less. Education/Safety Education Provided Patient Education: Role of PT, ROM/Positioning, Bed mobility, Transfers, Safety with mobility Family Education: Family not present Safety Interventions Fall Risk?: Yes Safety Interventions/Patient Disposition: Standard interventions, Bed alarm on, In bed, Call light in hand, All needs within reach, Notified nursing staff GOALS-The interventions during this session were provided to address the goals set forth on evaluation and are ongoing unless otherwise indicated. Time Frame Goals target date: 10/28/23 Rolling Right/Left Patient will roll right and left with: Standby assist Supine to Sit Patient will perform supine to sit with: Standby assist Sit to Supine Patient will perform sit to supine with: Standby assist Dangling Patient will dangle with: Standby assist Duration: 5 minutes Sit to/from Stand Patient will perform sit to/from stand transfer with: Maximal assist Bed to Chair Patient will transfer bed to chair with: Maximal assist Transfer type: Stand pivot TIME SPENT WITH PATIENT PT Timed Code Treatment Minutes (outside of evaluation) PT Therapeutic Activity: 5 PT Therapeutic Exercise: 8 PT Timed Code Treatment Minutes PT Total Billable Minutes: 13 Minutes * Bambi Alba RN - 2023 2:23 PM CDT Problem: Discharge Planning Goal: Establish appropriate post-hospitalization placement Outcome: Ongoing Flowsheets (Taken 2023 9868) Date of Last CM Visit: 10/15/23 Care Management - Progress Note Patient's chart reviewed. Patient discussed in rounds. Overview: Diagnosis: Ambulatory Dysfunction. Therapies following. Anticipated Discharge Date: TBD Anticipated Discharge Needs: TCU vs Home with HC Case Management Barriers: TCU Bed Availability and patient's history of leaving TCU facilities AMA Care Coordination Plan & Communication with Patient/Family: Linotypist followed up on TCU referralsas listed below. Linotypist also called patient's insurance provider MEDICA/MEDICA DUAL SOLUTION/CANCER [facility] (p. ), to inquire if patient has a community CM to assist with discharge planning. Medica customer dietary service aide could not tell race and sports book writer who is currently patient's manager medicare marketing. Linotypist met with patient and informed them that at this time [facility] have declined her and the reason why. Patient repeatedly informed race and sports book writer that she will like a TCU close to [place], [place] or else she will like to discharge home with HC and help from her boyfriend and family members. Linotypist asked patient to consider attending other TCUs in the [facility], patent is not keen on this idea. Patient also provided race and sports book writer with the name, phone, fax number, and email address of a Advertising Account Executive that was following her in the community when she was at [facility]. Per the patient,Johana was helping her relocate to a new TCU when the patient was at [facility]. Advertising Account Executive: Johana Perez Email: [email or web address] Linotypist called Johana, no answer, LVM requesting a call back. CM team to continue to follow. [facility] [address] [place] [address] P: F: [phone] 10/13 RN ET: Called and spoke with admissions, referral packet faxed. 10/14 RN ET: Called, no answer, LVM requesting a call back. 10/14 2486 RN ET: Received a VM from TCU's facility they are declining patient due to patient's weight being over 295 lbs and they cannot meet her needs. Facility is full for the up coming weeks. [facility] [address] [place] [address] P: F: [phone] 10/13 RN ET: Called, no answer, LVM requesting a call back. Referral packet faxed. 10/14 RN ET: Called, no answer, LVM requesting a call back. Bambi Gilmore RN, BSN seo associate 2023 2:31 PM Pager: [phone] Secure Chat or Pager * Bambi Alba RN - 10/14/2023 3:09 PM CDT Problem: Discharge Planning Goal: Establish appropriate post-hospitalization placement Outcome: Ongoing Flowsheets (Taken 10/14/2023 1035) Date of Last CM Visit: 10/14/23 Care Management - Progress Note Patient's chart reviewed. Patient discussed in rounds. Overview: Diagnosis: Ambulatory Dysfunction. Therapies Consulted. Anticipated Discharge Date: TBD Anticipated Discharge Needs: TCU vs Home with HC Case Management Barriers: TCU Bed Availability and patient's history of leaving TCU facilities AMA Care Coordination Plan &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 10/14/2023 5:29 AM CDT EXTRA TUBE-EDTA STAT 10/13/2023 6:32 PM CDT EXTRA TUBE-BLOOD BANK STAT 10/13/2023 6:32 PM CDT EXTRA TUBE-SST (LAB USE ONLY) STAT 10/13/2023 6:32 PM CDT BASIC METAB PROFILE STAT 10/13/2023 6 :32 PM CDT CBC/DIFF STAT 10/13/2023 6:32 PM CDT EXTRA TUBE PST STAT 10/13/2023 6:32 PM CDT documented in this encounter Results * Potassium, Serum (10/20/2023 4:33 AM CDT) Only the most recent of5 resultswithin the time period is included. Potassium 4.5 3.4 - 5.1 mmol/L 10/20/2023 5:38 AM CDT [facility] Blood 10/20/2023 4:33 AM CDT 10/20/2023 5:13 AM CDT Darin Caba PA-C CHEMISTRY ORDERABLE Performing Organization Address [facility] Co de Phone Number [facility] [address] [place] [phone] * (ABNORMAL) Creatinine eGFR (10/20/2023 4:33 AM CDT) Only the most recent of5 resultswithin the time period is included. Creatinine 1.15(H) 0.55 - 1.02 mg/dL 10/20/2023 5:46 AM CDT [facility] Est GFR (CKD-EPI) 51.67(L) >60.00 mL/min/1. 73m2 10/20/2023 5:46 AM CDT [facility] Comment:Calculation based on the Chronic Kidney Disease Epidemiology Collaboration (CKD-EPI) equation refit without adjustment for race. Blood 10/20/2023 4:33 AM CDT 10/20/2023 5:13 AM CDT Darin Caba PA-C CHEMISTRY ORDERABLE Performing Organization Address City/[facility]/ZIP Co de Phone Number [facility] [address] [place] [address] * Platelet Count (10/20/2023 4:33 AM CDT) Only the most recent of3 resultswithin the time period is included. Platelet Count 222 150 - 400 K/UL 10/20/2023 5:23 AM CDT [facility] Blood 10/20/2023 4:33 AM CDT 10/20/2023 5:13 AM CDT Francie Jaime MD HEMATOLOGY ORDERABLE Performing Organization Address City/[facility] Co de Phone Number [facility] [address] [place] [address] * (ABNORMAL) Hemoglobin (10/20/2023 4:33 AM CDT) Only the most recent of3 resultswithin the time period is included. Hemoglobin 9.9(L) 12.0 - 16.0 gm/dL 10/20/2023 5:23 AM CDT [facility] Blood 10/20/2023 4:33 AM CDT 10/20/2023 5:13 AM CDT Francie Jaime MD HEMATOLOGY ORDERABLE Performing Organization Address [facility] Phone Number [address] [place] [address] * (ABNORMAL) Iron Status (Includes Iron, Transferrin and Ferritin) (10/17/2023 11:04 AM CDT) TIBC 285 250 - 425 ug/dL 10/17/2023 1:29 PM CDT [facility] IRON SATURATION 13(L) 15 - 50 % 1:29 PM CDT [facility] FERRITIN, SERUM 82.0 7.3 - 270.7 ng/mL 10/17/2023 1:29 PM CDT [facility] Iron 37(L) 50 - 170 ug/dL 10/17/2023 1:29 PM CDT [facility] TRANSFERRIN, SERUM 186 180 - 300 mg/dL 10/17/2023 1:29 PM CDT [facility] Blood 10/17/2023 11:0 4 AM CDT 10/17/2023 11:23 AM CDT Darin Caba PA-C CHEMISTRY ORDERABLE Performing Organization Address City/[facility] Co de Phone Number [facility] [address] [place] [address] * Extra Tube PST (Lab Use Only) (10/13/2023 6:32 PM CDT) Blood 10/13/2023 6:32 PM CDT 10/13/2023 6:32 PM CDT Kelly Gamboa MD CHEMISTRY ORDERABL E Performing Organization Address [facility] de Phone Number [facility] [address] [place] [address] * Extra Tube-SST (Lab Use Only) (10/13/2023 6:32 PM CDT) Blood 10/13/2023 6:32 PM CDT 10/13/2023 6:32 PM CDT Kelly Gamboa MD CHEMISTRY ORDERABL E Performing Organization Address [facility] de Phone Number [facility] [address] [place] [address] * Extra Tube-EDTA (Lab Use Only) (10/13/2023 6:32 PM CDT) Blood 10/13/2023 6:32 PM CDT 10/13/2023 6:32 PM CDT Kelly Gamboa MD HEMATOLOGY ORDERAB LE Performing Organization Address [facility] de Phone Number [facility] [address] [address] * Extra Tube-Blood Bank (Lab Use Only) (10/13/2023 6:32 PM CDT) Blood 10/13/2023 6:32 PM CDT 10/13/2023 6:32 PM CDT Kelly Gamboa MD BLOOD BANK ORDERAB LE Performing Organization Address [facility] de Phone Number [facility] [address] [address] * (ABNORMAL) Basic Metabolic Profile (10/13/2023 6:32 PM CDT) [facility] Sodium 139 136 - 145 mmol/L 10/13/2023 7:00 PM T [facility] Potassium 4.3 3.4 - 5.1 mmol/L 10/13/2023 7:[address] [facility] Chloride 103 98 - 108 mmol/L 10/13/2023 7:[address] [facility] Carbon Dioxide 30 20 - 31 mmol/L 10/13/2023 7:[address] [facility] BUN (Urea Nitro) 15 9 - 23 mg/dL 10/13/2023 7:[address] [facility] Creatinine 1.15(H) 0.55 - 1.02 mg/dL 10/13/2023 7:[address] [facility] Est GFR (CKD-EPI) 52.00(L) >60.00 mL/min/1. 73m2 10/13/2023 7:[address] [facility] Comment:Calculation based on the Chronic Kidney Disease Epidemiology Collaboration (CKD-EPI) equation refit without adjustment for race. Glucose 100 74 - 106 mg/dL 10/13/2023 7:[address] [facility] Calcium, Serum 9.6 8.7 - 10.4 mg/dL 10/13/2023 7:[address] [facility] Anion Gap 6.0 0.0 - 15.0 mmol/L 10/13/2023 7:[address] [facility] Blood 10/13/2023 6:32 PM CDT 10/13/2023 6:32 PM CDT Kelly Gamboa MD CHEMISTRY ORDERABL E [facility] [address] [place] [address] * (ABNORMAL) CBC w/diff (10/13/2023 6:32 PM CDT) [facility] WBC 5.5 4.3 - 10.8 K/uL 10/13/2023 6:[address] [facility] RBC 3.61(L) 4.20 - 5.40 M/uL 10/13/2023 6:[address] [facility] Hemoglobin 10.4(L) 12.0 - 16.0 gm/dL 10/13/2023 6:[address] [facility] Hematocrit 32.4(L) 36.0 - 48.0 % 10/13/2023 6:[address] [facility] MCV 90 80 - 100 fL 10/13/2023 6:[address] [facility] MCH 29 27 - 33 pg 10/13/2023 6:[address] [facility] MCHC 32(L) 33 - 36 gm/dL 10/13/2023 6:[address] [facility] RDW 13.3 11.5 - 14.5 % 10/13/2023 6:[address] [facility] Platelet Count 251 150 - 400 K/UL 10/13/2023 6:[address] [facility] MPV 10.2 6.5 - 12 fL 10/13/2023 6:[address] [facility] PMN % 64.1 % 10/13/2023 6:[address] [facility] IG % 0.5 <=1.0 % 10/13/2023 6:[address] [facility] Lymphocyte % 20.8 % 10/13/2023 6:[address] [facility] Monocyte % 9.7 % 10/13/2023 6:[address] [facility] Eosinophil % 4.2 % 10/13/2023 6:[address] [facility] Basophil % 0.7 % 10/13/2023 6:[address] [facility] PMN Absolute 3.51 1.80 - 7.80 K/uL 10/13/2023 6:[address] [facility] Lymphocyte Absolute 1.14 1.00 - 4.00 K/uL 10/13/2023 6:[address] [facility] Monocyte Absolute 0.53 0.00 - 1.00 K/uL 10/13/2023 6:40 PM CDT [facility] Eosinophil Absolute 0.23 0.00 - 0.45 K/uL 10/13/2023 6:40 PM CDT [facility] Basophil Absolute 0.04 0.00 - 0.20 K/uL 10/13/2023 6:40 PM CDT [facility] Nucl RBC % 0.0 0.0 - 0.0 /100 WBC 10/13/2023 6:40 PM CDT [facility] Nucl RBC Absolute 0.00 0.00 - 0.00 K/uL 10/13/2023 6:40 PM CDT [facility] Blood 10/13/2023 6:32 PM CDT 10/13/2023 6:32 PM CDT Kelly Gamboa MD HEMATOLOGY ORDERAB LE [facility] [address] [place], [place] [id number] documented in this encounter Visit Diagnoses Diagnosis Ambulatory dysfunction- Primary Chronic pain of left knee Pain in joint, lower leg Generalized weakness Other malaise and fatigue Sacral decubitus ulcer, stage IV (HCC) Pressure ulcer, lower back documented in this encounter Admitting Diagnoses Diagnosis Ambulatory dysfunction documented in this encounter Administered Medications Active Administered Medications - up to 3 most recent administrations Medication Order MAR Action Action Date Dose Rate Site saline FLUSH syringe 10 mL 10 mL, Intravenous, NEEDED, Starting on Wed10/13/23 at 2127, Until Discontinued, Line Care acetaminophen (TYLENOL) tablet 500-1,000 mg 500-1,000 mg (1-2 tablet), oral, EVERY 6 HOURS NEEDED, Starting on Elissa 10/14/23 at 1632, Until Discontinued, fever, pain Given 10/20/2023 8:34 PM CDT 1,000 mg Given 10/20/2023 1:17 PM CDT 500 mg Given 10/20/2023 3:46 AM CDT 1,000 mg bismuth subsalicylate (PEPTO-BISMOL) (conc: 262 mg/15 mL) oral suspension 524 mg 524 mg (30 mL), oral, EVERY 6 HOURS NEEDED, Starting on 10/16/23 at 1522, Until Discontinued, dyspepsia, GI Discomfort Given 10/20/2023 2:45 PM CDT 524 m g Given 10/16/2023 4:00 PM CDT 524 mg calcium carbonate (TUMS) chewable tablet 500 mg 500 mg (1 tablet), oral, THREE TIMES A DAY NEEDED, Starting on 10/16/23 at 1518, Until Discontinued, GI Discomfort Given 10/18/2023 7:50 PM CDT 500 mg celecoxib (CeleBREX) capsule 100 mg 100 mg, oral, DAILY, First dose on Wed10/14/23 at 0800, Until Discontinued Given 10/20/2023 7:51 AM CDT 100 mg Given 10/19/2023 9:07 AM CDT 100 mg Given 10/18/2023 8:48 AM CDT 100 mg DULoxetine (CYMBALTA) delayed release capsule 60 mg 60 mg, oral, DAILY WITH EVENING MEAL, First dose on Wed10/13/23 at 2130, Until Discontinued Given 10/20/2023 4: 10 PM CDT 60 mg Given 10/19/2023 6:07 PM CDT 60 mg Given 10/18/2023 5:24 PM CDT 60 mg enoxaparin (LOVENOX) injection 40 mg 40 mg, Subcutaneous, TWICE A DAY, First dose on Wed10/13/23 at 2215, Until Discontinued, The minimum weight for this order is 35 kg. For 1 mg/kg dose patients >190 kg, consider using an unfractionated heparin infusion. For 1.5 mg/kg dose patients >125 kg, use enoxaparin 1 mg/kg q12h per dose rounding guidelines. This medication has a Blackbox Warning. Click the formulary reference link for more information. Given 10/20/2023 8:34 PM CDT 40 mg Abdomen Given 10/20/2023 7:58 AM CDT 40 mg Ab domen Given 10/19/2023 8:12 PM CDT 40 mg Ab domen ferrous sulfate (FERATAB) tablet 325 mg 325 mg, oral, EVERY OTHER DAY, First dose (after last modification) on Wed10/20/23 at 0800, Until Discontinued Given 10/20/2023 7:52 AM CDT 325 mg furosemide (LASIX) tablet 20 mg 20 mg, oral, DAILY, First dose on Wed10/14/23 at 0800, Until Discontinued Given 10/20/2023 7:52 AM CDT 20 mg Given 10/19/2023 9:07 AM CDT 20 mg Given 10/18/2023 8:48 AM CDT 20 mg hydroCHLOROthiazide (HYDRODIURIL) tablet 25 mg 25 mg, oral, EVERY MORNING, First dose on Wed10/21/23 at 0900, Until Discontinued hydrocortisone (CORTAID) 1% topical cream topical, TWICE A DAY NEEDED, Starting on Wed10/14/23 at 1636, Until Discontinued, rash, Facial rash Given 2023 12:23 PM CDT Given 10/14/2023 8:34 PM CDT lidocaine 4% (Salonpas) adhesive patch, medicated 1 patch 1 patch, Transdermal, DAILY, First dose on Wed10/14/23 at 0800, Until Discontinued Patch Applied 10/20/2023 8:00 AM CDT 1 patch Left Knee Patch Applied 10/19/2023 9:12 AM CDT 1 patch Left Knee Patch Applied 10/18/2023 8:53 AM CDT 1 patch Left Knee lidocaine 4% (Salonpas) adhesive patch, medicated 1 patch 1 patch, Transdermal, DAILY, First dose on Wed10/14/23 at 0800, Until Discontinued Patch Applied 10/20/2023 7:53 AM CDT 1 patch Left Lower Back Patch Applied 10/19/2023 9:11 AM CDT 1 patch Left Knee Patch Applied 10/18/2023 8:52 AM CDT 1 patch Other (Comment) melatonin tablet 3 mg 3 mg, oral, AT BEDTIME, First dose on Wed10/17/23 at 0130, Until Discontinued Given 10/19/2023 9:16 PM CDT 3 mg Given 10/18/2023 9:26 PM CDT 3 mg Given 10/17/2023 9:31 PM CDT 3 mg nystatin (MYCOSTATIN) powder topical, TWICE A DAY, First dose on Wed10/13/23 at 2130, Until Discontinued Given 10/20/2023 8:37 PM CDT Abdomen Given 10/20/2023 9:07 AM CDT Given 10/19/2023 8:17 PM CDT ondansetron (Zofran) disintegrating tablet 4 mg 4 mg, oral, EVERY 8 HOURS NEEDED, Starting on Wed10/15/23 at 1140, Until Discontinued, nausea Given 10/20/2023 7:50 AM CDT 4 mg Given 2023 12:23 PM CDT 4 mg polycarbophil calcium (FIBERCON) tablet 625 mg 625 mg (1 tablet), oral, DAILY, First dose on Wed10/15/23 at 1200, Until Discontinued Given 10/20/2023 7:52 AM CDT 625 m g Given 10/19/2023 9:09 AM CDT 625 mg Given 10/18/2023 8:48 AM CDT 625 mg potassium chloride (K-DUR) extended release tablet 10 mEq 10 mEq, oral, DAILY, First dose on Wed10/14/23 at 0800, Until Discontinued Given 10/20/2023 7:51 AM CDT 10 mEq Given 10/19/2023 9:07 AM CDT 10 mEq Given 10/18/2023 8:48 AM CDT 10 mEq traMADoL (ULTRAM) tablet 50 mg 50 mg, oral, AT BEDTIME NEEDED, Starting on Wed10/20/23 at 1631, Until Discontinued, Pain, when taking PO Inactive Administered Medications - up to 3 most recent administrations Medication Order MAR Action Action Date Dose Rate Site saline FLUSH syringe 10 mL 10 mL, Intravenous, EVERY 8 HOURS, First dose on Wed10/13/23 at 2200, Until Discontinued Given 10/17/2023 5:57 AM CDT 10 mL Given 10/16/2023 2:00 PM CDT 10 mL Given 10/16/2023 6:05 AM CDT 10 mL acetaminophen (TYLENOL) tablet 325-650 mg 325-650 mg, oral, EVERY 4 HOURS NEEDED, Starting on Wed10/13/23 at 2127, Until Wed10/14/23 at 1640, fever, pain, for pain or fever Given 10/14/2023 1:52 PM CDT 650 mg Given 10/14/2023 7:58 AM CDT 650 mg Given 10/13/2023 10:01 PM CDT 650 mg ferrous sulfate (FERATAB) tablet 325 mg 325 mg, oral, DAILY, First dose on Wed10/14/23 at 0800, Until Discontinued Given 2023 8:43 AM CDT 325 mg Given 10/14/2023 7:59 AM CDT 325 mg hydrOXYzine pamoate (Vistaril) capsule 25 mg 25 mg, oral, ONCE, 1 dose, On Wed10/17/23 at 1945 Given 10/17/2023 7:47 PM CDT 25 mg ibuprofen (AdviL;Motrin) tablet 400 mg 400 mg, oral, ONCE, 1 dose, On Wed10/18/23 at 0245 Given 10/18/2023 2:53 AM CDT 400 mg documented in this encounter Active and Recently Administered Medications Times are shown in CDT. Scheduled Medication Order 10/19/2023 10/20/2023 10/21/2023 celecoxib (CeleBREX) capsule 100 mg 100 mg, oral, DAILY, First dose on Wed10/14/23 at 0800, Until Discontinued 09 (Given - Provider: Zaid Traylor RN) 075 (Given - Provider: Lidia Lugo RN) 0800 (Due) DULoxetine (CYMBALTA) delayed release capsule 60 mg 60 mg, oral, DAILY WITH EVENING MEAL, First dose on Wed10/13/23 at 2130, Until Discontinued 180 (Given - Provider: Radha Craft RN) 1610 (Given - Provider: Lidia Lugo RN) 1700 (Due) enoxaparin (LOVENOX) injection 40 mg 40 mg, Subcutaneous, TWICE A DAY, First dose on Wed10/13/23 at 2215, Until Discontinued, The minimum weight for this order is 35 kg. For 1 mg/kg dose patients >190 kg, consider using an unfractionated heparin infusion. For 1.5 mg/kg dose patients >125 kg, use enoxaparin 1 mg/kg q12h per dose rounding guidelines. This medication has a Blackbox Warning. Click the formulary reference link for more information. 911 (Given - Provider: Zaid Traylor RN)2011 (Given - Provider: Sheldon Ordaz RN) 075 (Given - Provider: Lidia Lugo RN)2033 (Given - Provider: Anat Abdullahi RN) 0800 (Due)1999 (Due) ferrous sulfate (FERATAB) tablet 325 mg 325 mg, oral, EVERY OTHER DAY, First dose (after last modification) on Wed10/20/23 at 0800, Until Discontinued 751 (Given - Provider: Lidia Lugo RN) furosemide (LASIX) tablet 20 mg 20 mg, oral, DAILY, First dose on Wed10/14/23 at 0800, Until Discontinued 906 (Given - Provider: Zaid Traylor RN) 751 (Given - Provider: Lidia Lugo RN) 799 (Due) hydroCHLOROthiazide (HYDRODIURIL) tablet 25 mg 25 mg, oral, EVERY MORNING, First dose on Wed10/21/23 at 0900, Until Discontinued 899 (Due) lidocaine 4% (Salonpas) adhesive patch, medicated 1 patch 1 patch, Transdermal, DAILY, First dose on Wed10/14/23 at 0800, Until Discontinued 911 (Patch Applied - Provider: Zaid Traylor RN)2111 (Patch Removed - Provider: Sheldon Ordaz RN) 799 (Patch Applied - Provider: Lidia Lugo RN)1999 (Patch Removed - Provider: Anat Abdullahi RN) 799 (Due) lidocaine 4% (Salonpas) adhesive patch, medicated 1 patch 1 patch, Transdermal, DAILY, First dose on Wed10/14/23 at 0800, Until Discontinued 910 (Patch Applied - Provider: Zaid Traylor RN)2110 (Patch Removed - Provider: Sheldon Ordaz RN) 752 (Patch Applied - Provider: Lidia Lugo RN)1952 (Patch Removed - Provider: Anat Abdullahi RN) 799 (Due) melatonin tablet 3 mg 3 mg, oral, AT BEDTIME, First dose on Wed10/17/23 at 0130, Until Discontinued 2115 (Given - Provider: Sheldon Ordaz RN) 2203 (Declined - Provider: Anat Abdullahi RN - Comment: pt reports that medication does not work) 2199 (Due) nystatin (MYCOSTATIN) powder topical, TWICE A DAY, First dose on Wed10/13/23 at 2130, Until Discontinued 915 (Given - Provider: Zaid Traylor RN)2016 (Given - Provider: Sheldon Ordaz RN) 09 (Given - Provider: Lidia Lugo RN)2036 (Given - Provider: Anat Abdullahi, JOHN - Comment: under breast and abdo fold) 0800 (Due)1999 (Due) polycarbophil calcium (FIBERCON) tablet 625 mg 625 mg (1 tablet), oral, DAILY, First dose on Wed10/15/23 at 1200, Until Discontinued 09 (Given - Provider: Zaid Traylor RN) 075 (Given - Provider: Lidia Lugo RN) 08 (Due) potassium chloride (K-DUR) extended release tablet 10 mEq 10 mEq, oral, DAILY, First dose on Wed10/14/23 at 0800, Until Discontinued 906 (Given - Provider: Zaid Traylor RN) 075 (Given - Provider: Lidia Lugo RN) 08 (Due) PRN Medication Order 10/19/2023 10/20/2023 10/21/2023 saline FLUSH syringe 10 mL 10 mL, Intravenous, NEEDED, Starting on Wed10/13/23 at 2127, Until Discontinued, Line Care acetaminophen (TYLENOL) tablet 500-1,000 mg 500-1,000 mg (1-2 tablet), oral, EVERY 6 HOURS NEEDED, Starting on Wed10/14/23 at 1632, Until Discontinued, fever, pain 0300 (Given - Provider: Pam Loja RN)0907 (Given - Provider: Zaid Traylor RN)1527 (Given - Provider: Kenji Colón RN)211 (Given - Provider: Sheldon Ordaz RN) 0346 (Given - Provider: Sheldon Ordaz RN)1317 (Given - Provider: Lidia Lugo, JOHN)2033 (Given - Provider: Anat Abdullahi, JOHN) bismuth subsalicylate (PEPTO-BISMOL) (conc: 262 mg/15 mL) oral suspension 524 mg 524 mg (30 mL), oral, EVERY 6 HOURS NEEDED, Starting on 10/16/23 at 1522, Until Discontinued, dyspepsia, GI Discomfort 1445 (Given - Provider: Lidia Lugo RN) calcium carbonate (TUMS) chewable tablet 500 mg 500 mg (1 tablet), oral, THREE TIMES A DAY NEEDED, Starting on 10/16/23 at 1518, Until Discontinued, GI Discomfort hydrocortisone (CORTAID) 1% topical cream topical, TWICE A DAY NEEDED, Starting on Elissa 10/14/23 at 1636, Until Discontinued, rash, Facial rash ondansetron (Zofran) disintegrating tablet 4 mg 4 mg, oral, EVERY 8 HOURS NEEDED, Starting on Wed10/15/23 at 1140, Until Discontinued, nausea 0750 (Given - Provider: Lidia Lugo RN) traMADoL (ULTRAM) tablet 50 mg 50 mg, oral, AT BEDTIME NEEDED, Starting on Wed10/20/23 at 1631, Until Discontinued, Pain, when taking PO documented in this encounter Additional Health Concerns Infection Onset Date Last Indicated Resolved Time MRSA Comment:Added from external infection. Source: [facility]. 12/08/2015 10/14/2023 Gastrointestinal Rule-Out 2023 2023 2:17 PM CDT Gastrointestinal Rule-Out 10/16/2023 10/16/2023 12:35 PM CDT documented as of this encounter Care Teams Price Lister Relationship Specialty Start Date End Date Hill Broderick MD [address] [place] [address] PCP - General Family Medicine - 10/13/23 documented as of this encounter
--- OUTSIDE RECORDS SUMMARY | 2023-10-21 03:41 | XMS_ITS | Referral Summary ---
Author Name Unknown Organization [facility] Address [address] [place] [id number] Care Team Providers Care Tig Welder Name Role Phone Hill Broderick MD Primary Care Provider Encounters Date Type Department Care Team Description 10/13/2023 Travel 10/13/2023 5:09 PM CDT - Present Emergency [address] [place] [address] [id number] Kelly Gamboa MD Hood, MD Nazario Carvajal Edwin E, MD Jambhekar, Nilesh S, MD Akintunde, Shawna Ware MD Ambulatory dysfunction from Last 3 Months Allergies Active Allergy Reactions Criticality Noted Date [...] Noted Date Diagnosed Date Ambulatory dysfunction 10/13/2023 Social History Tobacco Use Types Packs/Day Years [...] 10/13/2023 9:48 PM CDT Plan of Treatment Not on file Procedures The patient is currently admitted. The [...] & HIP LATERAL RT 07/21/2003 1:30 PM CAN DRYER from Last 3 Months or Most Recently Relevant to Health Maintenance Results * (ABNORMAL) Creatinine eGFR (10/20/2023 4:33 AM CDT) Only the most recent of5 resultswithin the time period is included. Creatinine 1.15(H) 0.55 - 1.02 mg/dL 10/20/2023 5:46 AM CDT [facility] Est GFR (CKD-EPI) 51.67(L) >60.00 mL/min/1. 73m2 10/20/2023 5:46 AM CDT [facility] Comment:Calculation based on the Chronic Kidney Disease Epidemiology Collaboration (CKD-EPI) equation refit without adjustment for race. Blood 10/20/2023 4:33 AM CDT 10/20/2023 5:13 AM CDT Darin Caba PA-C CHEMISTRY ORDERABLE [facility] [address] [address] * Potassium, Serum (10/20/2023 4:33 AM CDT) Only the most recent of5 resultswithin the time period is included. Potassium 4.5 3.4 - 5.1 mmol/L 10/20/2023 5:38 AM CDT [facility] Blood 10/20/2023 4:33 AM CDT 10/20/2023 5:13 AM CDT Darin Caba PA-C CHEMISTRY ORDERABLE Performing Organization Address [facility] de Phone Number [facility] [place] [address] * Platelet Count (10/20/2023 4:33 AM CDT) Only the most recent of3 resultswithin the time period is included. Platelet Count 222 150 - 400 K/UL 10/20/2023 5:23 AM CDT [facility] Blood 10/20/2023 4:33 AM CDT 10/20/2023 5:13 AM CDT Francie Jaime MD HEMATOLOGY ORDERABLE Performing Organization Address [facility] de Phone Number [facility] [place] [address] * (ABNORMAL) Hemoglobin (10/20/2023 4:33 AM CDT) Only the most recent of3 resultswithin the time period is included. Hemoglobin 9.9(L) 12.0 - 16.0 gm/dL 10/20/2023 5:23 AM CDT [facility] Blood 10/20/2023 4:33 AM CDT 10/20/2023 5:13 AM CDT Francie Jaime MD HEMATOLOGY ORDERABLE Performing Organization Address [facility] Co de Phone Number [facility] [address] [place] [address] * (ABNORMAL) Iron Status (Includes Iron, Transferrin and Ferritin) (10/17/2023 11:04 AM CDT) TIBC 285 250 - 425 ug/dL 10/17/2023 1:29 PM CDT [facility] IRON SATURATION 13(L) 15 - 50 % 1:29 PM CDT [facility] FERRITIN, SERUM 82.0 7.3 - 270.7 ng/mL 10/17/2023 1:29 PM CDT [facility] Iron 37(L) 50 - 170 ug/dL 10/17/2023 1:29 PM CDT [facility] TRANSFERRIN, SERUM 186 180 - 300 mg/dL 10/17/2023 1:29 PM CDT [facility] Blood 10/17/2023 11:0 4 AM CDT 10/17/2023 11:23 AM CDT Darin Caba PA-C CHEMISTRY ORDERABLE Performing Organization Address [facility] Co de Phone Number [facility] [address] [place] [address] * Extra Tube-EDTA (Lab Use Only) (10/13/2023 6:32 PM CDT) Blood 10/13/2023 6:32 PM CDT 10/13/2023 6:32 PM CDT Kelly Gamboa MD HEMATOLOGY ORDERAB LE Performing Organization Address [facility]/ZIP Co de Phone Number [facility] [address] [place] [address] * Extra Tube-Blood Bank (Lab Use Only) (10/13/2023 6:32 PM CDT) Blood 10/13/2023 6:32 PM CDT 10/13/2023 6:32 PM CDT Kelly Gamboa MD BLOOD BANK ORDERAB LE Performing Organization Address [facility] Co de Phone Number [facility] [place] [address] * Extra Tube-SST (Lab Use Only) (10/13/2023 6:32 PM CDT) Blood 10/13/2023 6:32 PM CDT 10/13/2023 6:32 PM CDT Kelly Gamboa MD CHEMISTRY ORDERABL E Performing Organization Address [facility] Co de Phone Number [facility] [place] [address] [place] [address] * (ABNORMAL) Basic Metabolic Profile (10/13/2023 6:32 PM CDT) Sodium 139 136 - 145 mmol/L 10/13/2023 7:00 PM [facility] Potassium 4.3 3.4 - 5.1 mmol/L 10/13/2023 7:00 PM [facility] Chloride 103 98 - 108 mmol/L 10/13/2023 7:00 PM [facility] Carbon Dioxide 30 20 - 31 mmol/L 10/13/2023 7:00 PM [facility] BUN (Urea Nitro) 15 9 - 23 mg/dL 10/13/2023 7:00 PM [facility] Creatinine 1.15(H) 0.55 - 1.02 mg/dL 10/13/2023 7:00 PM [facility] Est GFR (CKD-EPI) 52.00(L) >60.00 mL/min/1. 73m2 10/13/2023 7:00 PM [facility] Comment:Calculation based on the Chronic Kidney Disease Epidemiology Collaboration (CKD-EPI) equation refit without adjustment for race. Glucose 100 74 - 106 mg/dL 10/13/2023 7:00 PM [facility] Calcium, Serum 9.6 8.7 - 10.4 mg/dL 10/13/2023 7:00 PM CDT [facility] Anion Gap 6.0 0.0 - 15.0 mmol/L 10/13/2023 7:00 PM T [facility] Blood 10/13/2023 6:32 PM CDT 10/13/2023 6:32 PM CDT Kelly Gamboa MD CHEMISTRY ORDERABL E Performing Organization Address City/State/[facility] Co de Phone Number [facility] [address] [place] [address] * (ABNORMAL) CBC w/diff (10/13/2023 6:32 PM CDT) WBC 5.5 4.3 - 10.8 K/uL 10/13/2023 6:40 PM CDT [facility] RBC 3.61(L) 4.20 - 5.40 M/uL 10/13/2023 6:40 PM [facility] Hemoglobin 10.4(L) 12.0 - 16.0 gm/dL 10/13/2023 6:40 PM [facility] Hematocrit 32.4(L) 36.0 - 48.0 % 10/13/2023 6:40 PM [facility] MCV 90 80 - 100 fL 10/13/2023 6:40 PM [facility] MCH 29 27 - 33 pg 10/13/2023 6:40 PM [facility] MCHC 32(L) 33 - 36 gm/dL 10/13/2023 6:40 PM T [facility] RDW 13.3 11.5 - 14.5 % 10/13/2023 6:40 PM [facility] Platelet Count 251 150 - 400 K/UL 10/13/2023 6:40 PM [facility] MPV 10.2 6.5 - 12 fL 10/13/2023 6:40 PM [facility] PMN % 64.1 % 10/13/2023 6:40 PM [facility] IG % 0.5 <=1.0 % 10/13/2023 6:40 PM [facility] Lymphocyte % 20.8 % 10/13/2023 6:40 PM CDT [facility] Monocyte % 9.7 % 10/13/2023 6:40 PM CDT [facility] Eosinophil % 4.2 % 10/13/2023 6:40 PM CDT [facility] Basophil % 0.7 % 10/13/2023 6:40 PM CDT [facility] PMN Absolute 3.51 1.80 - 7.80 K/uL 10/13/2023 6:40 PM CDT [facility] Lymphocyte Absolute 1.14 1.00 - 4.00 K/uL 10/13/2023 6:40 PM CDT [facility] Monocyte Absolute 0.53 0.00 - 1.00 K/uL 10/13/2023 6:40 PM CDT [facility] Eosinophil Absolute 0.23 0.00 - 0.45 K/uL 10/13/2023 6:40 PM CDT [facility] Basophil Absolute 0.04 0.00 - 0.20 K/uL 10/13/2023 6:40 PM CDT [facility] Nucl RBC % 0.0 0.0 - 0.0 /100 WBC 10/13/2023 6:40 PM CDT [facility] Nucl RBC Absolute 0.00 0.00 - 0.00 K/uL 10/13/2023 6:40 PM CDT [facility] Blood 10/13/2023 6:32 PM CDT 10/13/2023 6:32 PM CDT Kelly Gamboa MD HEMATOLOGY ORDERAB LE Performing Organization Address City/[facility] Co de Phone Number [facility] [address] [place], [place] [id number] * Extra Tube PST (Lab Use Only) (10/13/2023 6:32 PM CDT) Blood 10/13/2023 6:32 PM CDT 10/13/2023 6:32 PM CDT Kelly Gamboa MD CHEMISTRY ORDERABL E [facility] [address] [place] [address] * XR PELVIS & HIP LATERAL RT (07/21/2003 1:30 PM CAN DRYER) Anatomical Region Laterality Modality ABD/Pelvis Other 07/21/2003 1:30 PM CAN DRYER Narrative 08/01/2003 9:31 PM CAN DRYER er 20 AP PELVIS AND LATERAL RIGHT [...] Time MRSA Comment:Added from external infection. Source: [facility]. 12/08/2015 10/14/2023 Advance Directives For more information, please contact: [phone] Latest Code Status on File Code Status Date Activated Date Inactivated Comments Full Code 10/13/2023 9:27 PM Question Answer Comments How was code status determined? Patient Care Teams Tig Welder Relationship Specialty Start Date End Date Hill Broderick MD [address] [place] [address] PCP - General Family Medicine - 10/13/23
--- OUTSIDE RECORDS SUMMARY | 2023-10-21 03:42 | XMS_ITS | Clinical Summary ---
Author Name Unknown Organization [facility] Address [place], [place] [address] Care Team Providers Care Prec[employer] Police Lieutenant Name Role Phone Elaine Sapp MD Unavailable Mary Lo NP Unavailable [facility] [place] Unavailable Hill Broderick MD Primary Care Provider [phone] [facility], [place] Unavailable Allergies Active Allergy Reactions Criticality Noted Date Comments Buspirone Other - Describe In Comment Field 12/25/2021 Too sleepy Doxycycline Nausea And Vomiting 10/08/2016 Cephalexin Nausea Only 12/16/2017 Latex Itching 07/18/2014 Itching Itching on hands, [facility] Latex, Natural Rubber Itching 01/10/2016 itching Lisinopril [...] Sapp of Oncology. we will test in [place] so she does not have to go to [place]. Leukocytosis 01/22/2015 Leg weakness, bilateral 12/13/2014 Dysthymia [...] Department Care Team Description 10/03/2023 Orders Only [facility] Scanner 1 scan: (1-Ord) [facility], XR KNEE LT 2V, 10/03/2023 10/02/2023 Orders Only [facility] Scanner 1 scan: (1-Ord) [facility], XR CHEST 1V, 10/02/2023 10/01/2023 Nurse Triage [facility] [address] [place] [address] Hill Broderick MD Medication Management 10/01/2023 Nurse Triage [facility] [address] [place] [address] Hill Broderick MD Error-please disregard (error) from [...] Other Mother Coretta Dementia Hyperlipidemia Sister 2 Rosser Hypertension Sister 2 Rosser Relation Name Status Comments Brother 1 Rocky [...] 139.7 kg (308 lb) 05/30/2019 2:02 PM MEDICAL RECORDS FIELD TECHNICIAN Height 152.4 cm (5') 05/30/2019 2:02 PM MEDICAL RECORDS FIELD TECHNICIAN Body Mass Index 60.15 05/30/2019 2:02 PM MEDICAL RECORDS FIELD TECHNICIAN Plan of Treatment Health Maintenance Due Date [...] Completed 01/24/2019 Medical Devices Implanted Type Area Barrel Liner Device Identifier Shelf Expiration Date Model / Serial / Lot Tissue Matrix [id number] Implanted:Qty: 3 on 12/18/2015 by Dimitri Ortega MD at [facility] [id number] / / [id number] Description:TISSUE MATRIX 44 [id number] APLIGRAF Procedures Procedure Name Priority Date/Time Associated Diagnosis Comments SCAN-RADIOLOGY REPORT 10/03/2023 12:00 AM CDT SCAN-RADIOLOGY REPORT 10/02/2023 12:00 AM CDT LC LIPID PANEL AND CHOL/HDL RATIO Routine 07/22/2022 3:28 PM MEDICAL RECORDS FIELD TECHNICIAN Screening for lipid disorders ANTI HCV Routine [...] PANEL AND CHOL/HDL RATIO (07/22/2022 3:28 PM MEDICAL RECORDS FIELD TECHNICIAN) [facility] Cholesterol, Total 109 100 - 199 mg/dL 07/24/2022 12:08 PM [facility] Triglycerides 108 0 - 149 mg/dL 07/24/2022 12:08 PM [facility] HDL Cholesterol 49 >39 mg/dL 12:08 PM [facility] VLDL Cholesterol Chandler 20 5 - 40 mg/dL 07/24/2022 12:08 PM [facility] LDL Chol Calc (NIH) 40 0 - 99 mg/dL 07/24/2022 12:08 PM [facility] T. Chol/HDL Ratio 2.2 0.0 - 4.4 ratio 07/24/2022 12:08 PM [facility] Comment: ?T. Chol/HDL Ratio ?Men ??Women ?1/2 Avg.Risk ??3.4 ?3.3 ?Avg.Risk ??5.0 ?4.4 ? 2X Avg.Risk ??9.6 ?7.1 ? 3X Avg.Risk 23.4 ?? 11.0 Blood BLOOD SPECIMEN / Unknown Butterfly / Unknown 07/22/2022 3:28 PM MEDICAL RECORDS FIELD TECHNICIAN 07/22/2022 3:32 PM MEDICAL RECORDS FIELD TECHNICIAN Narrative [facility] - 07/24/2022 12:08 PM MEDICAL RECORDS FIELD TECHNICIAN Performed at: ??[address] ??[id number] Photographer Portrait: Bari Smith MD, Phone: ??[phone] Hill Broderick MD SEND OUTS [facility]) [address] [place] [id number] * ANTI HCV (01/24/2019 3:44 PM CDT) HEPATITIS C ANTIBODY Non-React tamica Non-React tamica 01/25/2019 1:48 AM CDT [facility] Comment:Antibodies to HCV no t detected; does not exclude the possibility of exposure to HCV. Blood BLOOD SPECIMEN / Unknown Butterfly / Unknown 01/24/2019 3:44 PM CDT 01/24/2019 3:44 PM CDT Blade Monsalve MD [facility] [address] [place] [address], from Last 3 Months or Most Recently Relevant to Health Maintenance Additional Health Concerns Infection Onset Date Last Indicated MRSA Comment:Order contact precautions. Nares surveillance cultures needed to clear patient. #1 #2 +MRSA RLE 12/05/15 12/08/2015 12/08/2015 Advance Directives Documents on File Type Date Recorded Patient Art Supervisor Expl anation Healthcare Directive 11/24/2022 023 * [...] Comments Code Status Discussion: Discussed Care Teams Precinct Police Lieutenant Relationship Specialty Start Date End Date Hill Broderick MD [facility] [place] [address] PCP - General Family Practice 05/06/22 Elaine Sapp MD [address] [place] [address] Hematology 10/06/21 Mary Lo NP [address] [place] [address] Hematology 10/06/21 [facility] [place] [address] [place] [address] 03/03/22 [facility] [place] [address], [place] [address] 10/12/22
== END 2023-10-12 10:26 | disposition home or self-care (01) ==
LOC: AMB 10-21 03:38
PROVIDERS: PCP Family Medicine; Visit Provider Emergency Medicine
DX: M25.562 Pain in left knee (principal); E66.01 Morbid (severe) obesity due to excess calories; Z74.01 Bed confinement status
CPT/HCPCS: A0425; A0428

== ENCOUNTER 2024-02-24 23:10 | Emergency (ER) | payer MEDICARE, SELFPAY ==
[2024-02-24 23:23] VITALS: BP 129/61; PULSE 99; RESP 16; TEMP 36.4; O2SAT 96
--- NOTE | 2024-02-24 23:36 | CRLHL7_ITS ---
For Patients: As a result of the Cures Act, medical imaging exams and procedure reports are released immediately into your electronic medical record. You may view this report before your referring provider. If you have questions, please contact your health care provider. Indication: Pain Technique: Three views of the left knee Comparison: None Findings/Impression: Limited evaluation due to body habitus. 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 Dictated by James Butt MD @ 02/25/2024 12:52:02 AM (Electronically Signed)
--- NOTE | 2024-02-25 00:16 | ED_ITS ---
HPI - General Adult General Chief complaint: Extremity Pain/Injury, Lower Stated complaint: knee pain Time Seen by Provider: 02/24/24 23:51 History of Present Illness HPI narrative: Patient is a 68-year-old woman who comes in with a very difficult clinical situation. She is massive lower extremity lymphedema and has a complex past medical history including morbid obesity bilateral weakness chronic knee pain chronic urinary incontinence fatigue and anxiety. She has been hospitalized here in the past. She ended up at the time of her discharge at a rehab facility which kept her for quite some time before she left against medical advice recently. Patient has been under the care of her who has been doing the best he can however her lymphedema although not worse is shocking. She has number of areas of skin desquamation in all of her folds extending from her femoral region down to her ankles. She has no obvious signs or history of redness or cellulitis but her ability to care for herself is very limited. She comes in tonight with knee pain in her left knee. X-ray series which I reviewed showed only osteoarthritis no acute abnormalities. Of note she has had no recent falls. Related Data Home Medications ?Medication ?Instructions ?Recorded ?Confirmed acetaminophen 500 mg capsule 1,000 mg PO TID PRN 03/28/23 10/04/23 cholecalciferol (vitamin D3) 1,250 1,250 mcg PO 2XW 03/28/23 10/04/23 mcg (50,000 unit) capsule (Weekly-D) ferrous sulfate 325 mg (65 mg 325 mg PO DAILY 03/28/23 10/04/23 iron) tablet,delayed release furosemide 20 mg tablet 20 mg PO DAILY 03/28/23 10/04/23 ondansetron 4 mg disintegrating 4 mg PO Q8H PRN 03/28/23 10/04/23 tablet potassium chloride 10 mEq 10 meq PO DAILY 03/28/23 10/04/23 tablet,extended release Lactobacillus acidophilus 0.5 mg 0.5 mg PO DAILY 10/04/23 10/04/23 (100 million cell) tablet collagenase clostridium histo. 250 1 applic topical DAILY 10/04/23 10/04/23 unit/gram topical ointment (Santyl) diclofenac sodium 1 % topical gel 2 g topical BID 10/04/23 10/04/23 duloxetine 60 mg capsule,delayed 60 mg PO DAILY 10/04/23 10/04/23 release hydrocortisone 1 % topical cream 1 applic topical BID 10/04/23 10/04/23 zinc oxide 1 applic topical BID 10/04/23 10/04/23 Previous Rx's ?Medication ?Instructions ?Recorded nystatin 100,000 unit/gram topical 1 applic topical BID 14 days #30 06/01/23 powder grams celecoxib 100 mg capsule (Celebrex) 100 mg PO DAILY #30 caps 10/12/23 lidocaine 5 % topical patch 2 patch topical DAILY #60 ea 10/12/23 Allergies Allergy/AdvReac Type Severity Reaction Status Date / Time amoxicillin Allergy Unknown Verified 03/28/23 13:05 buspirone [From BuSpar] Allergy Unknown Verified 03/28/23 13:16 cephalexin [From Keflex] Allergy Unknown Verified 03/28/23 13:15 doxycycline Allergy Unknown Verified 03/28/23 13:15 latex Allergy Unknown Verified 03/28/23 13:15 lisinopril Allergy Unknown Verified 03/28/23 13:15 Penicillins Allergy Unknown Verified 03/28/23 13:15 Sulfa (Sulfonamide Allergy Unknown Verified 03/28/23 13:15 Antibiotics) Review of Systems Status of ROS: Reports: 10 or more systems reviewed and unremarkable except as noted in History and below [facility] Medical History Seborrheic dermatitis ?L21.9 - Seborrheic dermatitis, unspecified (ICD-10) At risk for venous thromboembolism (VTE) ?Z91.89 - Other specified personal risk factors, not elsewhere classified (ICD-10) Anxiety ?F41.9 - Anxiety disorder, unspecified (ICD-10) Cognitive impairment ?R41.89 - Other symptoms and signs involving cognitive functions and awareness (ICD-10) Anemia ?D64.9 - Anemia, unspecified (ICD-10) GI bleeding ?K92.2 - Gastrointestinal hemorrhage, unspecified (ICD-10) Ulcer of sacral region, stage 4 ?L98.429 - Non-pressure chronic ulcer of back with unspecified severity (ICD- 10) Stage IV pressure ulcer of sacral region ?L89.154 - Pressure ulcer of sacral region, stage 4 (ICD-10) Chronic pain ?G89.29 - Other chronic pain (ICD-10) Recurrent depression ?F33.9 - Major depressive disorder, recurrent, unspecified (ICD-10) Panic attacks ?F41.0 - Panic disorder [episodic paroxysmal anxiety] (ICD-10) Insomnia ?G47.00 - Insomnia, unspecified (ICD-10) Restless legs syndrome ?G25.81 - Restless legs syndrome (ICD-10) Urge incontinence of urine ?N39.41 - Urge incontinence (ICD-10) Controlled substance agreement signed ?Z79.899 - Other adjunct faculty for medical terminology (current) drug therapy (ICD-10) Vitamin D deficiency ?E55.9 - Vitamin D deficiency, unspecified (ICD-10) MRSA (methicillin resistant staph aureus) culture positive (~12/05/15) ?Z22.322 - Carrier or suspected carrier of Methicillin resistant Staphylococcus aureus (ICD-10) Left ureteral stone (~12/11/15) ?N20.1 - Calculus of ureter (ICD-10) CKD (chronic kidney disease), stage III ?N18.30 - Chronic kidney disease, stage 3 unspecified (ICD-10) Acute osteomyelitis of coccyx (~08/2015) ?M46.28 - Osteomyelitis of vertebra, sacral and sacrococcygeal region (ICD- 10) Ulcers of both lower extremities with fat layer exposed ?L97.912 - Non-pressure chronic ulcer of unspecified part of right lower leg with fat layer exposed (ICD-10) ?L97.922 - Non-pressure chronic ulcer of unspecified part of left lower leg with fat layer exposed (ICD-10) Iron deficiency 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 ?D50.1 - Sideropenic dysphagia (ICD-10) Acute kidney injury (~01/2015) ?N17.9 - Acute kidney failure, unspecified (ICD-10) Dysthymia ?F34.1 - Dysthymic disorder (ICD-10) Bilateral leg weakness ?R29.898 - Other symptoms and signs involving the musculoskeletal system (ICD-10) Chronic acquired lymphedema ?I89.0 - Lymphedema, not elsewhere classified (ICD-10) Chronic, continuous use of opioids ?F11.90 - Opioid use, unspecified, uncomplicated (ICD-10) Venous stasis ulcer of thigh with fat layer exposed ?I83.001 - Varicose veins of unspecified lower extremity with ulcer of thigh (ICD-10) ?L97.102 - Non-pressure chronic ulcer of unspecified thigh with fat layer exposed (ICD-10) Elevated TSH ?R79.89 - Other specified abnormal findings of blood chemistry (ICD-10) DJD (degenerative joint disease) of knee ?M17.9 - Osteoarthritis of knee, unspecified (ICD-10) Morbid obesity ?E66.01 - Morbid (severe) obesity due to excess calories (ICD-10) Essential hypertension ?I10 - Essential (primary) hypertension (ICD-10) Surgical History S/P debridement ?Z98.890 - Other specified postprocedural states (ICD-10) S/P ureteral stent placement ?Z96.0 - Presence of urogenital implants (ICD-10) Family History Brother Diabetes Cardiovascular disease Father Cardiovascular disease High blood pressure Sister High cholesterol High blood pressure Mother Dementia Social History Narrative: Lives independently, partner Alex often with her. 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 Smoked an average of 0.3 packs per day for 2 years, quit in 1970. Denies alcohol use. Denies recreational drug use. Wishes to be full code. Sons Bhargav or Mick would be primary medical decision maker if needed. What is your current living situation?: I presently have a place to live Problems where you live: no known problems Problems where you live details: NA In the past 12 months, utilities in danger of being shut off: no In past 12 months, lack of transportation kept you from medical appts, meetings, work, or getting things needed for daily living: yes Highest level of school completed/degree received: 11th grade Smoking Status: Former smoker What tobacco products do you use: cigarettes Smoking quit date/years: >15 years ago Do you use any of these nicotine containing products: None Second hand tobacco smoke exposure: No How often do you have a drink containing alcohol: never How often do you have six or more drinks on one occasion: Never AUDIT-C Alcohol total score: 0 Non-prescribed substance use: denies use Caffeine: No How often does anyone, including family, friends and others, physically hurt you : never How often does anyone, including family, friends and others, insult or talk down to you: rarely How often does anyone, including family, friends and others, threaten you with harm: never How often does anyone, including family, friends and others, scream or curse at you: never service: No Exam Narrative: Exam Narrative: EXAM GENERAL: Patient appears massively obese with chronic lymphedema of the lower extremities. EYES: No scleral icterus. LYMPH: No supraclavicular or cervical lymphadenopathy. SKIN: Areas of stasis dermatitis with significant areas of redness within skin folds. Difficult to examine her coccyx region due to her girth. EXT: Edema extending from the ankles to the groin. There are multiple areas of invagination with foul-smelling discharge. HEART: Regular rate and rhythm with no murmurs, rubs, or gallops. LUNGS: Clear to auscultation bilaterally with no crackles or wheezes. ABD: Soft, non tender, non distended. PSYCH: Good eye contact, speech is not pressured. Const: Vital Signs, click to edit/add: Vital Signs - 24 hr 02/24/24 23:23 Temperature 97.6 F Pulse Rate [Pulse Oximeter] 99 Respiratory Rate 16 Blood Pressure [Ri ght Upper Arm] 129/61 Pulse Oximetry 96 Oxygen Delivery Me thod Room Air Course Course ED Course: Patient seen and examined. X-ray reviewed. Vital Signs Vital signs: Initial Vital Signs Temperature 97.6 F 02/24/24 23:23 Temperature Source Temporal Artery Scan 02/24/24 23:23 Pulse Rate 99 02/24/24 23:23 Respiratory Rate 16 02/24/24 23:23 Blood Pressure 129/61 02/24/24 23:23 Blood Pressure Mean 83 02/24/24 23:23 Blood Pressure Position Supine 02/24/24 23:23 Pulse Oximetry 96 02/24/24 23:23 Oxygen Delivery Method Room Air 02/24/24 23:23 Vital Signs Temperature 97.6 F 02/24/24 23:23 Pulse Rate 99 02/24/24 23:23 Respiratory Rate 16 02/24/24 23:23 Blood Pressure 129/61 02/24/24 23:23 Pulse Oximetry 96 02/24/24 23:23 Oxygen Delivery Method Room Air 02/24/24 23:23 Temperature 97.6 F 02/24/24 23:23 Pulse Rate 99 02/24/24 23:23 Respiratory Rate 16 02/24/24 23:23 Blood Pressure 129/61 02/24/24 23:23 Pulse Oximetry 96 02/24/24 23:23 Oxygen Delivery Method Room Air 02/24/24 23:23 Medical Decision Making MDM Narrative Medical decision making narrative: This is clearly a difficult situation. Um I have move significant doubts that the patient will be able to care for herself. She does refuse admission as she realizes this will lead to likely further longterm stay. We did clean her wounds the best we can instructed her on wound care. Her was present. I did review the results of her x-ray with her as it showed no acute abnormalities. I still have significant concerns about her well-being although she does not want to be admitted. I do think that by cleaning her areas of desquamation and dermatitis today and the fact that she has a new home health nurse starting tomorrow this may help us to provide good care for her. Patient states that her goal is to walk by walker and provider own self-care. She does have follow-up with her doctor to follow. Discharge Plan Discharge Clinical Impression: Acute knee pain Patient Disposition: Home w/ Parent or Adult Condition: Stable Instructions: Knee Pain (ED) Additional Instructions: Continue pain control Ice Skin dressing as directed Consider returning to assisted living/rehab facility Activity Level: Activity as Tolerated Discharge Diet: Regular Prescriptions: No Action potassium chloride 10 mEq tablet extended release 10 meq PO DAILY furosemide 20 mg tablet 20 mg PO DAILY ferrous sulfate 325 mg (65 mg iron) tablet,delayed release (DR/EC) 325 mg PO DAILY ondansetron 4 mg tablet,disintegrating 4 mg PO Q8H PRN acetaminophen 500 mg capsule 1,000 mg PO TID PRN cholecalciferol (vitamin D3) [Weekly-D] 1,250 mcg (50,000 unit) capsule 1,250 mcg PO 2XW duloxetine 60 mg capsule,delayed release(DR/EC) 60 mg PO DAILY Rx Instructions: START THIS DOSE 10/08 Lactobacillus acidophilus 0.5 mg (100 million cell) Tablet 0.5 mg PO DAILY hydrocortisone 1 % cream 1 applic topical BID Rx Instructions: APPLY TO RASH ON FACE Santyl 250 unit/gram ointment 1 applic topical DAILY Rx Instructions: apply to bilateral calfs diclofenac sodium 1 % gel 2 g topical BID Rx Instructions: apply to mid to low back zinc oxide Ointment 1 applic topical BID Rx Instructions: for incontinence dermatitis celecoxib [Celebrex] 100 mg capsule 100 mg PO DAILY Qty: 30 0RF lidocaine 5 % adhesive patch,medicated 2 patch topical DAILY Qty: 60 0RF Rx Instructions: leave on most painful area for up to 12 hrs nystatin 100,000 unit/gram Powder 1 applic topical BID 14 Days Qty: 30 0RF Follow Up/Referrals: Hill Broderick MD [Primary Care Provider] - Stand Alone Forms: MessageMe Info Instructions
--- OUTSIDE RECORDS SUMMARY | 2024-02-25 00:33 | XMS_ITS | Clinical Summary ---
Author Organization [facility] Address [address] [place] [address] Care Team Providers Care Bait Maker Name Role Phone Hill Broderick MD Primary Care Provider Allergies Active Allergy Reactions Criticality Noted Date Comments Amoxicillin 10/13/2023 Buspirone 10/13/2023 Cephalexin 10/13/2023 Doxycycline 10/13/2023 Latex 10/13/2023 Lisinopril 10/13/2023 Penicillins 10/13/2023 Sulfa (Sulfonamide Antibiotics) 06/2023 Medications Medication Sig Dispensed Refills Start Date End Date Status LACTOBACILLUS ACIDOPHILUS ORAL Take 1 capsule by mouth twice a day. Active nystatin (MYCOSTATIN) 100,000 unit/gram Top Powd powder Apply to skin twice a day. To folds x 14 days (through 10/25) Active acetaminophen (TYLENOL) 500 mg oral tablet Take 2 tablets (1,000 mg) by mouth every 8 (eight) hours as needed. Active ondansetron (ZOFRAN) 4 mg oral tablet Take 1 tablet (4 mg) by mouth every 8 (eight) hours as needed. Active DULoxetine (CYMBALTA) 60 mg oral delayed release capsule Take 1 capsule (60 mg) by mouth once a day with evening meal. Active ferrous sulfate (FERATAB) 325 mg (65 mg iron) oral tablet Take 1 tablet (325 mg) by mouth once daily. Active Cholecalciferol, Vitamin D3, 1,250 mcg (50,000 unit) oral capsule Take 1 capsule by mouth Once a day every Wednesday and . Active hydrocortisone (CORTAID) 1 % Top cream Apply 1 Application to skin every evening. Active lidocaine 4% (SALONPAS) 4 % Top patch Apply 1 patch to skin once daily. Keep on for 12 hours and remove for 12 hours. Active potassium chloride (K-DUR) 10 mEq oral extended release tablet Take 1 tablet (10 mEq) by mouth once daily. Active collagenase 250 unit/g (SANTYL) 250 unit/gram Top Oint Apply 1 Application to skin every evening. Active diclofenac sodium (VOLTAREN) 1 % Top gel Apply 1 Application to skin twice a day. To mid lower back Active hydroCHLOROthiazide (HYDRODIURIL) 25 mg oral tablet Take 1 tablet (25 mg) by mouth every morning. 10/23/2023 Active Active Problems Problem Noted Date Diagnosed [...] Sign Reading Time Taken Comments Blood Pressure 128/76 10/22/2023 1:03 PM CDT Pulse 86 10/22/2023 1:03 PM CDT Temperature 36.9 ??C (98.4 ??F) 10/22/2023 1:03 PM CD T Respiratory Rate 18 10/22/2023 1:03 PM CDT Oxygen Saturation 94% 10/22/2023 1:03 PM CDT Inhaled Oxygen Concentration - - [...] series) 2014 Adult Tetanus Booster 03/04/2021 03/04/2011 COVID-19 Vaccine (4 - 2022-2 4 season) 2024 09/15/2023, 07/22/2021, 02/10/2021 Influenza Vaccine (#1) 2024, 04/01/2020, 05/30/2019, Additional history exists Yearly Review of HCD 10/12/2024 10/13/2023 Diabetes Screening 10/21/2026 10/22/2023, 0 10/21/2023, 10/13/2023 Hepatitis C Screening Completed 01/24/2019 Procedures Procedure Name Priority Date/Time Associated Diagnosis Comments BASIC METAB PROFILE Routine 10/22/2023 5 :12 AM CDT from Last 3 Months or Most Recently Relevant to Health Maintenance Results * (ABNORMAL) Basic Metab Profile (10/22/2023 5:12 AM CDT) Sodium 138 136 - 145 mmol/L 10/22/2023 6:03 AM [facility] Potassium 4.3 3.4 - 5.1 mmol/L 10/22/2023 6:03 AM [facility] Chloride 101 98 - 108 mmol/L 10/22/2023 6:03 AM [facility] Carbon Dioxide 29 20 - 31 mmol/L 10/22/2023 6:03 AM [facility] BUN (Urea Nitro) 26(H) 9 - 23 mg/dL 10/22/2023 6:03 AM [facility] Creatinine 1.15(H) 0.55 - 1.02 mg/dL 10/22/2023 6:03 AM CDT [facility] Est GFR (CKD-EPI) 51.67(L) >60.00 mL/min/1. 73m2 10/22/2023 6:03 AM CDT [facility] Comment:Calculation based on the Chronic Kidney Disease Epidemiology Collaboration (CKD-EPI) equation refit without adjustment for race. Glucose 105 74 - 106 mg/dL 10/22/2023 6:03 AM CDT [facility] Calcium, Serum 9.8 8.7 - 10.4 mg/dL 10/22/2023 6:03 AM CDT [facility] Anion Gap 8.0 0.0 - 15.0 mmol/L 10/22/2023 6:03 AM CDT [facility] Blood 10/22/2023 5:12 AM CDT 10/22/2023 5:29 AM CDT Denise Rodriguez APRN, ALLIGATOR HUNTER CHEMISTRY O RDERABLE [facility] [address] [place] [address] from Last 3 Months or Most Recently Relevant to Health Maintenance Additional Health Concerns Infection Onset Date Last Indicated MRSA Comment:Added from external infection. Source: [employer] [facility]. 12/08/2015 Advance Directives For more information, please contact: [phone] * Full Code (Latest Code Status on File) Date Activated Date Inactivated Comments 10/22/2023 11:44 AM Question Answer Comments How was code status determined? Previous Documen tation * Full Code Date Activated Date Inactivated Comments 10/22/2023 11:28 AM 10/22/2023 11:44 AM Question Answer Comments How was code status determined? Previous Documen tation * Full Code Date Activated Date Inactivated Comments 10/13/2023 9:27 PM 10/22/2023 11:28 AM Question Answer Comments How was code status determined? Patient Care Teams Bait Maker Relationship Specialty Start Date End Date Hill Broderick MD [address] [place] [address] PCP - General Family Medicine - 10/13/23
--- OUTSIDE RECORDS SUMMARY | 2024-02-25 00:33 | XMS_ITS | Referral Summary ---
Author Organization [facility] Address [address] [place] [address] Care Team Providers Care Boat Crew Deck Hand Name Role Phone Hill Broderick MD Primary Care Provider [phone] Allergies Active Allergy Reactions Criticality Noted Date [...] Plan of Treatment Not on file Procedures Procedure Name Priority Date/Time Associated Diagnosis Comments BASIC METAB PROFILE Routine 10/22/2023 5 :12 AM CDT from Last 3 Months or Most Recently Relevant to Health Maintenance Results * (ABNORMAL) Basic Metab Profile (10/22/2023 5:12 AM CDT) Sodium 138 136 - 145 mmol/L 10/22/2023 6:03 AM [facility] Potassium 4.3 3.4 - 5.1 mmol/L 10/22/2023 6:03 AM [facility] Chloride 101 98 - 108 mmol/L 10/22/2023 6:03 AM [facility] Carbon Dioxide 29 20 - 31 mmol/L 10/22/2023 6:03 AM [facility] BUN (Urea Nitro) 26(H) 9 - 23 mg/dL 10/22/2023 6:03 AM [facility] Creatinine 1.15(H) 0.55 - 1.02 mg/dL 10/22/2023 6:03 AM [facility] Est GFR (CKD-EPI) 51.67(L) >60.00 mL/min/1. 73m2 10/22/2023 6:03 AM [facility] Comment:Calculation based on the Chronic Kidney Disease Epidemiology Collaboration (CKD-EPI) equation refit without adjustment for race. Glucose 105 74 - 106 mg/dL 10/22/2023 6:03 AM [facility] Calcium, Serum 9.8 8.7 - 10.4 mg/dL 10/22/2023 6:03 AM [facility] Anion Gap 8.0 0.0 - 15.0 mmol/L 10/22/2023 6:03 AM [facility] Blood 10/22/2023 5:12 AM CDT 10/22/2023 5:29 AM CDT Denise Rodriguez APRN, HUMANITIES PROFESSOR CHEMISTRY O RDERABLE [facility] [address] [place] [address] from Last 3 Months or Most Recently Relevant to Health Maintenance Additional Health Concerns Infection Onset Date Last Indicated MRSA Comment:Added from external infection. Source: [employer] [facility]. 12/08/2015 Advance Directives For more information, please contact: [phone] * Full Code (Latest Code Status on [...] was code status determined? Patient Care Teams Boat Crew Deck Hand Relationship Specialty Start Date End Date Hill Broderick MD [address] [place] [address] PCP - General Family Medicine - 10/13/23
--- OUTSIDE RECORDS SUMMARY | 2024-02-25 00:34 | XMS_ITS | Clinical Summary ---
Author Organization [facility] Address [place], [place] [address] Care Team Providers Care Solvent Station Attendant Name Role Phone Elaine Sapp MD Unavailable Mary Lo NP Unavailable Hill Broderick MD Primary Care Provider [phone] [facility] Unavailable Allergies Active Allergy Reactions Criticality Noted Date Comments Buspirone Other - Describe In Comment Field 12/25/2021 Too sleepy Doxycycline Nausea And Vomiting 10/08/2016 Cephalexin Nausea Only 12/16/2017 Latex Itching 07/18/2014 Itching [facility] hands[facility], Natural Rubber Itching 01/10/2016 itching Lisinopril Cough 10/06/2011 Cough Penicillins Hives,*Unknown - Childhood Rxn Tolerated ancef/keflex/ceftriax one 2014 Unknown----tolerated ancef/keflex/ ceftriaxone 2014 Tolerated ancef/keflex/ceftriax one 2014 Sulfa (Sulfonamide Antibiotics) Nausea Only Medications Medication Sig Dispensed Refills Start Date End Date Status omega-3 fatty acids-vitamin E (FISH OIL) 1,000 mg CapIndications:Leg ulcer (HC),HTN (hypertension) Take 1 capsule by mouth once daily. 0 07/08/19 12 Active acetaminophen (TYLENOL EXTRA STRGTH) 500 mg tabletIndications: Ulcers of both lower extremities with fat layer exposed (HC) Take 2 tablets by mouth 3 times daily. Max acetaminophen dose: 4000mg in 24 hrs. 90 tablet 01/02/20 16 Active polyethylene glycoL (MIRALAX) 17 gram/scoop powder Take 17 g by mouth once daily if needed for Constipation. 01/29/20 18 Active diphenhydrAMINE (BENADRYL) 25 mg tablet Every 6 Hours as needed Active triamcinolone (ARISTOCORT; KENALOG) 0.1 % creamIndications:O ther eczema Apply topically to affected area(s) two times daily. 60 g 5 03/03/20 22 Active ammonium lactate 12% topical (LACHYDRIN) 12 % lotionIndications: Dry skin Apply topically to affected area(s) two times daily. 396 g 03/03/20 22 Active medication order composerIndication s:Urge incontinence of urine Pull-ups as needed for urinary incontinence 36 Each 11 06/11/20 22 Active furosemide (LASIX) 20 mg tabletIndications: Bilateral lower extremity edema Use one daily 90 Tablet 3 09/15/19 23 Active ferrous sulfate, 65 mg elemental, 324 mg (65 mg iron) Delayed-Release tabletIndications: Iron deficiency 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 Take 1 Tablet (324 mg) by mouth once daily. 30 Tablet 5 02/20/20 23 Active potassium chloride (KLOR-CON) 10 mEq extended-release tablet (part/cryst)Indica tions:Bilateral lower extremity edema Take 1 Tablet (10 mEq) by mouth once daily with a meal. 90 Tablet 3 02/20/20 23 Active wheelchairIndicati ons:Arthritis of right knee,Leg weakness, bilateral,Chronic acquired lymphedema,Stage IV pressure ulcer of sacral region (HC) Wheelchair: Bariatric (over 250 lbs) with leg rests: (Swing away Length of need: 99 months 1 Each 03/12/20 23 Active ondansetron (ZOFRAN ODT) 4 mg disintegrating tabletIndications: Nausea PLACE ONE TABLET ON THE TONGUE EVERY 8 HOURS NEEDED FOR NAUSEA/VOMITING 20 Tablet 1 02/10/20 24 Active LORazepam (ATIVAN) 0.5 mg tabIndications:Ojeda ic attacks,Other insomnia TAKE ONE TABLET BY MOUTH ONCE DAILY NEEDED FOR PANIC ATTACKS OR INSOMNIA (MAX DOSE OF 2 TABLETS IN A 24 HOURS PERIOD) 45 Tablet 02/14/20 24 Active disposable glovesIndications: Stage IV pressure ulcer of sacral region (HC),Venous stasis ulcer of thigh with fat layer exposed, unspecified laterality, unspecified whether varicose veins present (HC) FOR HOME USE WANTS TWO LARGE 200 Each 02/18/20 Active durable medical equipment (DME)Indications:U rge incontinence of urine Prevail PerFit 360 degrees daily Briefs OR ZHENG PRO SKIN BRIEFS size: 3x 98 Each 02/18/20 Active lidocaine 4 % creamIndications:L eg ulcer, unspecified laterality, with necrosis of muscle (HC) APPLY TOPICALLY TO AFFECTED AREAS PRIOR TO DRESSING CHANGE DAILY 45 g 02/24/20 Active citalopram (CELEXA) 20 mg tabletIndications: Anxiety Take 1 Tablet (20 mg) by mouth once daily. 90 Tablet 02/22/20 24 Active cholecalciferol (VITAMIN D3) 50,000 unit capsuleIndications :Vitamin D deficiency Take one capsule twice a week 13 capsule 12/03/19 024 Discontinued(*P atient states no longer taking) miscellaneous medical supply miscIndications:St age IV pressure ulcer of sacral region (HC) As directed. 1 unit 10/11/19 024 Discontinued(*P atient states no longer taking) ascorbic acid, vitamin C, (Vitamin C) 1,000 mg tabletIndications: Frequent UTI Take 1 Tablet (1,000 mg) by mouth once daily. 90 Tablet 08/11/19 024 Discontinued(*P atient states no longer taking) miscellaneous medical supply miscIndications:St age IV pressure ulcer of sacral region (HC),Venous stasis ulcer of thigh with fat layer exposed, unspecified laterality, unspecified whether varicose veins present (HC) As directed. Abdominal dressings 30 Each 06/09/20 024 Discontinued(*P atient states no longer taking) disposable glovesIndications: Stage IV pressure ulcer of sacral region (HC),Venous stasis ulcer of thigh with fat layer exposed, unspecified laterality, unspecified whether varicose veins present (HC) FOR HOME USE WANTS TWO LARGE 200 Each 06/11/20 024 Discontinued(Re order (E-cancel not sent)) citalopram (CELEXA) 20 mg tabletIndications: Dysthymia,Anxiety Take 1 Tablet (20 mg) by mouth once daily. 90 Tablet 3 09/15/19 024 Discontinued(Re order (E-cancel not sent)) LORazepam (ATIVAN) 0.5 mg tabIndications:Ojeda ic attacks,Other insomnia TAKE ONE TABLET BY MOUTH ONCE DAILY NEEDED FOR PANIC ATTACKS OR INSOMNIA (MAX DOSE OF 2 TABLETS IN A 24 HOURS PERIOD) 45 Tablet 1 09/15/19 024 Discontinued(Re order (E-cancel not sent)) ondansetron (ZOFRAN ODT) 4 mg disintegrating tabletIndications: Nausea PLACE ONE TABLET ON THE TONGUE EVERY 8 HOURS NEEDED FOR NAUSEA/VOMITING 20 Tablet 1 09/15/19 024 Discontinued(Re order (E-cancel not sent)) silver sulfADIAZINE (SILVADENE) 1 % creamIndications:L ymphedema,Skin rash Apply topically to affected area(s) once daily. 85 g 10/13/19 024 Discontinued(*P atient states no longer taking) medication order composerIndication s:Stage IV pressure ulcer of sacral region (HC),Venous [...] kerlix. Change daily and prn. 1 Bottle 10/15/19 024 Discontinued(*P atient states no longer taking) Diaper,Brief, Adult,Disposable (Per-Fit Underwear)Indicati ons:Urge incontinence of urine FOR HOME USE 96 Each 01/06/20 024 Discontinued(*A vailability/For mulary change/Cost of medication) lidocaine 4 % creamIndications:L eg ulcer, unspecified laterality, with necrosis of muscle (HC) Apply daily to affected areas prior to dressing change 45 g 02/12/20 Discontinued Alginate Dressing 4 X 4 bndgIndications:Ul cers of both lower extremities with fat layer exposed (HC) Apply topically to affected area(s). 30 Each 04/07/20 024 Discontinued(*M ed complete/Regime n complete/Level of care change) miscellaneous medical supply miscIndications:St age IV pressure ulcer of sacral region (HC),Venous stasis ulcer of thigh with fat layer exposed, unspecified laterality, unspecified whether varicose veins present (HC) As directed. Paper tape for dressings. 2 unit 11 04/07/20 Discontinued(*P atient states no longer taking) miscellaneous medical supply miscIndications:St age IV pressure ulcer of sacral region (HC),Venous stasis ulcer of thigh with fat layer exposed, unspecified laterality, unspecified whether varicose veins present (HC) As directed. kerliz gauze for leg wound dressing changes- ok to dispense individual wrapped kerlix or kerlix per bag 40 Each 04/07/20 024 Discontinued(*P atient states no longer taking) miscellaneous medical supply miscIndications:St age IV pressure ulcer of sacral region (HC),Venous stasis ulcer of thigh with fat layer exposed, unspecified laterality, unspecified whether varicose veins present (HC) As directed. Saline for dressing changes. 2 unit 11 04/07/20 024 Discontinued(*P atient states no longer taking) miscellaneous medical supply miscIndications:St age IV pressure ulcer of sacral region (HC),Venous stasis ulcer of thigh with fat layer exposed, unspecified laterality, unspecified whether varicose veins present (HC) As directed. 4x4 squares for leg wound dressing changes. 30 Each 04/07/20 024 Discontinued(*P atient states no longer taking) morphine CONTROLLED-RELEASE (MS CONTIN) 15 mg tabletIndications: Ulcers of both lower extremities with fat layer exposed (HC) Take 1 Tablet (15 mg) by mouth every 12 hours. 60 Tablet 05/04/20 23 024 Discontinued(*M ed complete/Regime n complete/Level of care change) Diaper,Brief, Adult,Disposable (Per-Fit Underwear)Indicati ons:Urge incontinence of urine For home use. 96 Each 02/10/20 24 024 Discontinued(*A vailability/For mulary change/Cost of medication) Diaper,Brief, Adult,Disposable (Per-Fit Underwear)Indicati ons:Urge incontinence of urine For home use. 96 Each 02/10/20 24 024 Discontinued(Du plicate therapy (E-cancel not sent)) durable medical equipment (DME)Indications:U rge incontinence of urine Prevail PerFit 360 degrees daily Briefs OR ZHENG PRO SKIN BRIEFS size: 3x 98 Each 02/17/20 24 024 Discontinued(Re order (E-cancel not sent)) disposable glovesIndications: Stage IV pressure ulcer of sacral region (HC),Venous stasis ulcer of thigh with fat layer exposed, unspecified laterality, unspecified whether varicose veins present (HC) FOR HOME USE WANTS TWO LARGE 200 Each 02/17/20 24 024 Discontinued(Re order (E-cancel not sent)) Active Problems Problem Noted Date Diagnosed Date Arthritis of right knee 03/12/2023 Overview (03/12/2023): Moderate to marked on 2013 MRI Stage IV pressure ulcer of sacral region 023 Other chronic pain 07/22/2022 Overview (07/22/2022): Chronic pain due leg ulcers since 2018. [...] MRSA (methicillin resistant Staphylococcus aureu s) 12/05/2015 Overview (12/14/2015): RLE Compliance with medication regimen 08/27/2015 CKD (chronic kidney disease), stage III 07/04/19 16 Ulcers of both lower extremities with fat layer exposed 05/30/2015 Overview (09/02/2022): In the process of referring her to the pain clinic for chronic pain from this Hill Broderick MD signed electronically .................... 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 Sapp of Oncology. we will test in [place] so she does not have to go to [place]. Leukocytosis 01/22/2015 Leg weakness, bilateral 12/13/2014 Dysthymia 12/13/2014 Chronic acquired lymphedema 11/19/2014 Renal insufficiency 11/15/2014 Venous stasis ulcer of thigh with fat layer expo sed 07/18/2014 Overview (09/14/2022): Reduced her MS Contin from 15 mg in the morning and 30 mg in the evening to 15 mg twice daily on 09/14/2022. Elevated TSH 10/17/2013 DJD (degenerative joint disease) of knee 010 Morbid obesity 11/04/2009 Essential hypertension 07/02/2008 Overview (08/27/2009): Updated by system to replace inactive record [...] Encounters Date Type Department Care Team Description 02/24/2024 Travel 02/23/2024 [address] [place] [address] Jennifer Morrison RN Home Care 02/22/2024 2:45 PM CDT Phone Office Visit [facility] [address] [place] [address] Hill Broderick MD Knee Pain/problem (Both knees, pain) 02/22/2024 Travel 02/21/[address] [address] Hill Broderick MD Refill Request (lidocaine 4 % cream) 02/21/2024 Refill [facility] [address] [place] [address] Hill Broderick MD Refill Request (Lidocaine) 02/18/2024 Telephone [facility] [address] [place] [address] Hill Broderick MD Pharmacist Medication Management (durable medical equipment (DME) /) 02/17/2024 Telephone [facility] [address] [place] [address] Hill Broderick MD Prior Authorization (LORazepam (ATIVAN) 0.5 mg tab Approved January 18, 2024 to February 16, 2025) 02/17/2024 Telephone [facility] [address] [place] [address] Hill Broderick MD DME Supply 02/17/2024 Refill [facility] [address] [place] [address] Hill rBoderick MD DME Supply; Refill Request (gloves) 02/16/2024 Telephone [facility] [address] [place] [address] Hill Broderick MD Prior Authorization (lorazepam) 02/16/2024 Refill [facility] [address] [place] [address] Hill Broderick MD Refill Request 02/15/2024 Telephone [facility] [address] [place] [address] Hill Broderick MD Appointment (assist patient virtual/) 02/10/2024 Refill [facility] [address] [place] [address] Hill Broderick MD Refill Request; Error-please disregard 02/10/2024 Refill [facility] [address] [place] [address] Hill Broderick MD Refill Request (Diaper,Brief, Adult,Disposable (Per-Fit Underwear) /) 02/10/2024 Refill [facility] [address] [place] [address] Hill Broderick MD Refill Request 02/10/2024 Refill [facility] [address] [place] [address] Hill Broderick MD Refill Request (Multiple) from Last 3 Months Immunizations Name Administration Dates Next Due COVID-19 vaccine (Moderna 10 0mcg/0.5mL) PF, MDAlfonzo 02/10/2021 COVID-19 vaccine (Pfizer-Bio NTech 30mcg/0.3mL) 12YO+ [...] Hyperlipidemia Sister 2 Tiki Hypertension Sister 2 Berwyn Relation Name Status Comments Brother 1 Rocky Alive Brother 2 Ray (Age 58) Father Tiburcio Hernandez (Age 50s) Mother Coretta (Age 70) Sister 1 Concetta Alive Sister 2 [place] Alive Social History Tobacco Use Types Packs/Day [...] Outcome GA Total Labor Labor/2nd/3rd Weight Sex Type Anes PTL Sarai A1 A5 Name Clin Para Para Para Last Filed Vital Signs Vital Sign Reading Time Taken Comments Blood Pressure 149/72 02/09/2023 1:13 PM CDT Pulse 97 02/09/2023 1:13 PM CDT Temperature 37 ??C (98.6 ??F) 02/09/2023 1:13 PM CDT Respiratory Rate 24 11/26/2022 4:13 PM CDT Oxygen Saturation 95% 02/09/2023 1:13 PM CDT Inhaled Oxygen Concentration - - Weight 139.7 kg (308 lb) 05/30/2019 2:02 PM COMMUNICATIONS EQUIPMENT SUPERVISOR Height 152.4 cm (5') 05/30/2019 2:02 PM COMMUNICATIONS EQUIPMENT SUPERVISOR Body Mass Index 60.15 05/30/2019 2:02 PM COMMUNICATIONS EQUIPMENT SUPERVISOR Plan of Treatment Upcoming Encounters Date Type Department Care Team (Late st Contact Info) Description 02/26/2024 4:00 AM CDT Appointment [facility] [address] [place] [address] Health Maintenance Due Date Last Done Comments [...] Tetanus booster 03/04/2021 03/04/2011 COVID-19 vaccine series (2022- season) 2024 09/15/2023, 07/22/2021, 02/10/2021, Additional history exists Influenza for age 65+ 02/13/2024 07/22/2021 , 04/01/2020, 05/30/2019, Additional history exists Depression screening for age 12+ 02/24/2024 02/23/2023, 02/19/2023, 09/14/2022, Additional history exists Lipids for age 45-75 07/22/2027 07/22/2022, 10/17/2013, 10/19/2012, Additional history exists Tdap Completed 03/04/2011 Hepatitis C screening for ag e 18-79 Completed 01/24/2019 Medical Devices Implanted Type Area Medical Claims Manager Device Identifier Shelf Expiration Date Model / Serial / Lot Tissue Matrix [id number] Apligraf Implanted:Qty: 3 on 12/18/2015 by Dimitri Ortega MD at [facility] [id number] / / [id number] Description:TISSUE MATRIX 44 [id number] APLIGRAF Procedures Procedure Name Priority Date/Time Associated Diagnosis Comments LC LIPID PANEL AND CHOL/HDL RATIO Routine 07/22/2022 3:28 PM COMMUNICATIONS EQUIPMENT SUPERVISOR Screening for lipid disorders ANTI HCV Routine 01/24/2019 3:44 PM CDT Need for hepatitis C screening test from Last 3 Months or Most Recently Relevant to Health Maintenance Results * LC LIPID PANEL AND CHOL/HDL RATIO (07/22/2022 3:28 PM COMMUNICATIONS EQUIPMENT SUPERVISOR) [facility] Cholesterol, Total 109 100 - 199 mg/dL 07/24/2022 12:[address] [facility] Triglycerides 108 0 - 149 mg/dL 07/24/2022 12:[address] [facility] HDL Cholesterol 49 >39 mg/dL 12:[address] [facility] VLDL Cholesterol Chandler 20 5 - 40 mg/dL 07/24/2022 12:[address] [facility] LDL Chol Calc (NIH) 40 0 - 99 mg/dL 07/24/2022 12:[address] [facility] T. Chol/HDL Ratio 2.2 0.0 - 4.4 ratio 07/24/2022 12:[address] [facility] Comment: ?T. Chol/HDL Ratio ?Men ??Women ?1/2 Avg.Risk ??3.4 ?3.3 ?Avg.Risk ??5.0 ?4.4 ? 2X Avg.Risk ??9.6 ?7.1 ? 3X Avg.Risk 23.4 ?? 11.0 Blood BLOOD SPECIMEN / Unknown Butterfly / Unknown 07/22/2022 3:28 PM COMMUNICATIONS EQUIPMENT SUPERVISOR 07/22/2022 3:32 PM COMMUNICATIONS EQUIPMENT SUPERVISOR Narrative [facility] - 07/24/2022 12:08 PM COMMUNICATIONS EQUIPMENT SUPERVISOR Performed at: ??[address] - [address] ??[id number] Glass Setter: Bari Smith MD, Phone: ??[phone] Hill Broderick MD SEND OUTS Performing Organization Address City/[facility]/ZIP Co de Phone Number [facility] [address] [place] [address] * ANTI HCV (01/24/2019 3:44 PM CDT) HEPATITIS C ANTIBODY Non-React tamica Non-React tamica 01/25/2019 1:48 AM CDT [facility] Comment:Antibodies to HCV no t detected; does not exclude the possibility of exposure to HCV. Blood BLOOD SPECIMEN / Unknown Butterfly / Unknown 01/24/2019 3:44 PM CDT 01/24/2019 3:44 PM CDT Blade Mosnalve MD SEND OUTS [facility] [address] [place] [address], from Last 3 Months or Most Recently Relevant to Health Maintenance Additional Health Concerns Infection Onset Date Last Indicated MRSA Comment:Order contact precautions. Nares surveillance cultures needed to clear patient. #1 #2 +MRSA RLE 12/05/15 12/08/2015 12/08/2015 Advance Directives Documents on File Type Date Recorded Patient Supervisor Tan Room Expl anation Healthcare Directive 11/24/2022 023 * [...] Comments Code Status Discussion: Discussed Care Teams Solvent Station Attendant Relationship Specialty Start Date End Date Hill Broderick MD [facility] [place] [address] PCP - General Family Practice 05/06/22 Elaine Sapp MD [address] [place] [address] Hematology 10/06/21 Mary Lo, MEDICAL LAB TECH INSTRUCTOR [address] [place] [address] Hematology 10/06/21 [facility] [address] [address] 02/24/24
== END 2024-02-25 01:40 | disposition home or self-care (01) ==
LOC: ED 02-25 00:31
PROVIDERS: Emergency Provider Internal Medicine; PCP Family Medicine
DX: M25.562 Pain in left knee (principal)
CPT/HCPCS: 73560; 99283; A0425; A0428; A0429

== ENCOUNTER 2024-02-27 15:47 | Emergency (ER) | payer MEDICARE, SELFPAY ==
[2024-02-27 15:48] VITALS: BP 142/77; PULSE 88; RESP 20; TEMP 36.4; O2SAT 96; BMI 53.8
--- NOTE | 2024-02-27 16:26 | ED.GENADULT ---
HPI - General Adult General Date Seen: 02/27/24 Chief complaint: Back Injury/Pain Stated complaint: lower back pain Time Seen by Provider: 02/27/24 15:57 Source: patient, family, RN notes reviewed and old records reviewed Mode of arrival: EMS Limitations: no limitations History of Present Illness HPI narrative: Is a 68-year-old woman with complex medical and social history. Records are reviewed. She was here couple of days ago with left knee pain which is chronic related to osteoarthritis. She comes in today by ambulance because of low back pain which she says started yesterday. Her partner/caregiver, Alex, is with her and says that the wound on her coccyx which was previously healed up according to them at the time of her last nursing home facility stay is now open again and the hole is getting bigger. She has not had fevers or chills. She has pain with any movement of her back. She denies any recent falls. She says the swelling in her legs is worse than ever, she has chronic pain in her legs related to significant lymphedema. She left AMA from nursing home previously, it does not sound as if she manages ADLs well at home however. Related Data Home Medications ?Medication ?Instructions ?Recorded ?Confirmed acetaminophen 500 mg capsule 1,000 mg PO TID PRN 03/28/23 10/04/23 cholecalciferol (vitamin D3) 1,250 1,250 mcg PO 2XW 03/28/23 10/04/23 mcg (50,000 unit) capsule (Weekly-D) ferrous sulfate 325 mg (65 mg 325 mg PO DAILY 03/28/23 10/04/23 iron) tablet,delayed release furosemide 20 mg tablet 20 mg PO DAILY 03/28/23 10/04/23 ondansetron 4 mg disintegrating 4 mg PO Q8H PRN 03/28/23 10/04/23 tablet potassium chloride 10 mEq 10 meq PO DAILY 03/28/23 10/04/23 tablet,extended release Lactobacillus acidophilus 0.5 mg 0.5 mg PO DAILY 10/04/23 10/04/23 (100 million cell) tablet collagenase clostridium histo. 250 1 applic topical DAILY 10/04/23 10/04/23 unit/gram topical ointment (Santyl) diclofenac sodium 1 % topical gel 2 g topical BID 10/04/23 10/04/23 duloxetine 60 mg capsule,delayed 60 mg PO DAILY 10/04/23 10/04/23 release hydrocortisone 1 % topical cream 1 applic topical BID 10/04/23 10/04/23 zinc oxide 1 applic topical BID 10/04/23 10/04/23 Previous Rx's ?Medication ?Instructions ?Recorded nystatin 100,000 unit/gram topical 1 applic topical BID 14 days #30 06/01/23 powder grams celecoxib 100 mg capsule (Celebrex) 100 mg PO DAILY #30 caps 10/12/23 lidocaine 5 % topical patch 2 patch topical DAILY #60 ea 10/12/23 Allergies Allergy/AdvReac Type Severity Reaction Status Date / Time amoxicillin Allergy Unknown Verified 03/28/23 13:05 buspirone [From BuSpar] Allergy Unknown Verified 03/28/23 13:16 cephalexin [From Keflex] Allergy Unknown Verified 03/28/23 13:15 doxycycline Allergy Unknown Verified 03/28/23 13:15 latex Allergy Unknown Verified 03/28/23 13:15 lisinopril Allergy Unknown Verified 03/28/23 13:15 Penicillins Allergy Unknown Verified 03/28/23 13:15 Sulfa (Sulfonamide Allergy Unknown Verified 03/28/23 13:15 Antibiotics) Review of Systems Status of ROS: Reports: 10 or more systems reviewed and unremarkable except as noted in History and below [facility] Medical History Seborrheic dermatitis ?L21.9 - Seborrheic dermatitis, unspecified (ICD-10) At risk for venous thromboembolism (VTE) ?Z91.89 - Other specified personal risk factors, not elsewhere classified (ICD-10) Anxiety ?F41.9 - Anxiety disorder, unspecified (ICD-10) Cognitive impairment ?R41.89 - Other symptoms and signs involving cognitive functions and awareness (ICD-10) Anemia ?D64.9 - Anemia, unspecified (ICD-10) GI bleeding ?K92.2 - Gastrointestinal hemorrhage, unspecified (ICD-10) Ulcer of sacral region, stage 4 ?L98.429 - Non-pressure chronic ulcer of back with unspecified severity (ICD-10) Stage IV pressure ulcer of sacral region ?L89.154 - Pressure ulcer of sacral region, stage 4 (ICD-10) Chronic pain ?G89.29 - Other chronic pain (ICD-10) Recurrent depression ?F33.9 - Major depressive disorder, recurrent, unspecified (ICD-10) Panic attacks ?F41.0 - Panic disorder [episodic paroxysmal anxiety] (ICD-10) Insomnia ?G47.00 - Insomnia, unspecified (ICD-10) Restless legs syndrome ?G25.81 - Restless legs syndrome (ICD-10) Urge incontinence of urine ?N39.41 - Urge incontinence (ICD-10) Controlled substance agreement signed ?Z79.899 - Other predatory animal exterminator (current) drug therapy (ICD-10) Vitamin D deficiency ?E55.9 - Vitamin D deficiency, unspecified (ICD-10) MRSA (methicillin resistant staph aureus) culture positive (~12/05/15) ?Z22.322 - Carrier or suspected carrier of Methicillin resistant Staphylococcus aureus (ICD-10) Left ureteral stone (~12/11/15) ?N20.1 - Calculus of ureter (ICD-10) CKD (chronic kidney disease), stage III ?N18.30 - Chronic kidney disease, stage 3 unspecified (ICD-10) Acute osteomyelitis of coccyx (~08/2015) ?M46.28 - Osteomyelitis of vertebra, sacral and sacrococcygeal region (ICD-10) Ulcers of both lower extremities with fat layer exposed ?L97.912 - Non-pressure chronic ulcer of unspecified part of right lower leg with fat layer exposed (ICD-10) ?L97.922 - Non-pressure chronic ulcer of unspecified part of left lower leg with fat layer exposed (ICD-10) Iron deficiency 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 ?D50.1 - Sideropenic dysphagia (ICD-10) Acute kidney injury (~01/2015) ?N17.9 - Acute kidney failure, unspecified (ICD-10) Dysthymia ?F34.1 - Dysthymic disorder (ICD-10) Bilateral leg weakness ?R29.898 - Other symptoms and signs involving the musculoskeletal system (ICD-10) Chronic acquired lymphedema ?I89.0 - Lymphedema, not elsewhere classified (ICD-10) Chronic, continuous use of opioids ?F11.90 - Opioid use, unspecified, uncomplicated (ICD-10) Venous stasis ulcer of thigh with fat layer exposed ?I83.001 - Varicose veins of unspecified lower extremity with ulcer of thigh (ICD-10) ?L97.102 - Non-pressure chronic ulcer of unspecified thigh with fat layer exposed (ICD-10) Elevated TSH ?R79.89 - Other specified abnormal findings of blood chemistry (ICD-10) DJD (degenerative joint disease) of knee ?M17.9 - Osteoarthritis of knee, unspecified (ICD-10) Morbid obesity ?E66.01 - Morbid (severe) obesity due to excess calories (ICD-10) Essential hypertension ?I10 - Essential (primary) hypertension (ICD-10) Surgical History S/P debridement ?Z98.890 - Other specified postprocedural states (ICD-10) S/P ureteral stent placement ?Z96.0 - Presence of urogenital implants (ICD-10) Family History Brother Diabetes Cardiovascular disease Father Cardiovascular disease High blood pressure Sister High cholesterol High blood pressure Mother Dementia Social History Narrative: Lives independently, partner Alex often with her. 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 Smoked an average of 0.3 packs per day for 2 years, quit in 1970. Denies alcohol use. Denies recreational drug use. Wishes to be full code. Sons Bhargav or Bill would be primary medical decision maker if needed. What is your current living situation?: I presently have a place to live Problems where you live: no known problems Problems where you live details: NA In the past 12 months, utilities in danger of being shut off: no In past 12 months, lack of transportation kept you from medical appts, meetings, work, or getting things needed for daily living: yes Highest level of school completed/degree received: 11th grade Smoking Status: Former smoker What tobacco products do you use: cigarettes Smoking quit date/years: >15 years ago Do you use any of these nicotine containing products: None Second hand tobacco smoke exposure: No How often do you have a drink containing alcohol: never How often do you have six or more drinks on one occasion: Never AUDIT-C Alcohol total score: 0 Non-prescribed substance use: denies use Caffeine: No How often does anyone, including family, friends and others, physically hurt you: never How often does anyone, including family, friends and others, insult or talk down to you: rarely How often does anyone, including family, friends and others, threaten you with harm: never How often does anyone, including family, friends and others, scream or curse at you: never service: No Exam Narrative: Exam Narrative: Vital signs as noted above. In general, an alert, nontoxic woman. Looks comfortable lying still. Receive 50 mcg of fentanyl per EMS. Head: Normocephalic, atraumatic. Eyes: Pupils are equal reactive. Extraocular movements are full. Conjunctivae are normal. ENT: Mucous membranes are moist. Poor dentition, multiple missing teeth. Neck: Supple without lymphadenopathy. Heart: Regular rate and rhythm. No murmur or rub. Lungs: Clear bilaterally. No increased work of breathing, crackles or wheezes. Abdomen: Obese, soft. Back: She has pain with rolling her onto her side in her low back diffusely. No areas of focal tenderness however. She has an open wound over the coccyx. She has purplish discoloration of her gluteal region bilaterally and erythema along the back of her upper thighs. There is no drainage from the wound and there is no significant erythema noted over her low back. There is no crepitus or subcu air. Extremities: Significant lymphedema in bilateral lower extremities. Neurologic: Patient is alert and oriented to person and place. Speech is fluent. Face is symmetric. Moves all extremities equally. Affect: Argumentative. Skin: Warm and dry. Const: Vital Signs, click to edit/add: Vital Signs - 24 hr 02/27/24 15:48 Temperature 97.6 F Pulse Rate [Pulse Oximeter] 88 Respiratory Rate 20 Blood Pressure [Ri ght Forearm] 142/77 H Pulse Oximetry 96 Oxygen Delivery Me thod Room Air Documenting provider has reviewed patient's vital signs: yes Course Course ED Course: We attempted to place an IV here, she refused. We were able to draw some blood, blood work is overall reassuring, white blood cell count is normal at 7.2, hemoglobin is 10.1, slightly improved from her baseline. Anemia is chronic, unclear whether it has been significantly worked up in the past, thought possibly to be related to iron deficiency. No GI bleeding complaints today. Metabolic panel shows normal electrolytes, BUN 21 creatinine 1.1, which is her baseline. Lactate is normal at 1.1, CRP very minimally elevated at 2.2 LFTs normal, BNP 166. I gave her oxycodone 5 mg here, and ordered a CT scan of the lumbar spine and pelvis. She did go over to CT but then as she typically does, refused to lay on the CT table and was return to the emergency department. She says that the only kind of imaging she can do is the kind of x-ray that you bring into her room. I have had a fairly lengthy conversation with her. I think, as noted by prior providers, that the likelihood of her being able to manage her medical problems at home is low. She has a recurrent pressure wound on her coccyx, no clear signs of infection at this time, but evidence of pretty significant stasis. She tells me she is not really walking right now. I recommended admission to the hospital for placement to a rehab facility. She adamantly refuses to go anywhere, she says she just got home and she does not want to leave her home again and does not want to lose her home. I asked about home health as when she was here couple of days ago there was an indication that home health might have been starting today, initially she said she had no idea what I was talking about but then referenced a nurse who was supposed to come today and she called her and told her not, because she was going to come to the ER instead. She thinks maybe this person is supposed to come again tomorrow. For now, there is not a clear reason for medical admission to the hospital given that she is refusing more long-term help. I will put in a referral to the Wound Clinic, she says she is willing to do that. I have strongly encouraged her to follow up with what ever nurse this is that she talked to today to make sure that she is planning to come back in the near future. Warning signs discussed, return to the emergency department for signs of infection in this area, new symptoms such as fever, chills, vomiting etcetera. No clear indication for antibiotics at this time. Vital Signs Vital signs: Initial Vital Signs Temperature 97.6 F 02/27/24 15:48 Temperature Source Temporal Artery Scan 02/27/24 15:48 Pulse Rate 88 02/27/24 15:48 Respiratory Rate 20 02/27/24 15:48 Blood Pressure 142/77 H 02/27/24 15:48 Blood Pressure Mean 98 02/27/24 15:48 Blood Pressure Position Supine 02/27/24 15:48 Pulse Oximetry 96 02/27/24 15:48 Oxygen Delivery Method Room Air 02/27/24 15:48 Vital Signs Temperature 97.6 F 02/27/24 15:48 Pulse Rate 88 02/27/24 15:48 Respiratory Rate 20 02/27/24 15:48 Blood Pressure 142/77 H 02/27/24 15:48 Pulse Oximetry 96 02/27/24 15:48 Oxygen Delivery Method Room Air 02/27/24 15:48 Temperature 97.6 F 02/27/24 15:48 Pulse Rate 88 02/27/24 15:48 Respiratory Rate 20 02/27/24 15:48 Blood Pressure 142/77 H 02/27/24 15:48 Pulse Oximetry 96 02/27/24 15:48 Oxygen Delivery Method Room Air 02/27/24 15:48 Medications Administered Medications: Discontinued Medications Generic Name Dose Route Start Last Admin Trade Name Freq PRN Reason Stop Dose Admin Morphine Sulfate 4 mg 02/27/24 16:17 02/27/24 18:19 Morphine 4 Mg/Ml Inj IVP 02/27/24 16:18 Not Given ONCE ONE Ondansetron HCl 4 mg 02/27/24 18:05 02/27/24 18:19 Ondansetron Odt 4 Mg Tab PO 02/27/24 18:06 4 mg ONCE ONE Administration Oxycodone HCl 5 mg 02/27/24 16:51 02/27/24 16:58 Oxycodone 5 Mg Tablet PO 02/27/24 16:52 5 mg ONCE ONE Administration Medical Decision Making Lab Data Labs: Lab Results 02/27/24 Range/Units 16:49 WBC 7.26 (4.50-11.00) K/uL RBC 3.54 L (4.00-5.20) m/uL Hgb 10.1 L (12.0-16.0) gm/dL Hct 33.1 (33.0-51.0) % MCV 94 (80-100) fL MCH 29 (26-34) pg MCHC 31 L (32-36) gm/dL RDW Coeff of Vilma 13.1 (11.5-15.5) % Plt Count 222 (140-440) K/uL Neut % (Auto) 75.2 H (42.0-72.0) % Lymph % (Auto) 13.8 L (20-44) % [place] % (Auto) 8.1 (0.0-11.0) % Eos % (Auto) 2.1 (0.0-7.0) % Baso % (Auto) 0.4 (0.0-3.0) % Neut # (Auto) 5.50 (1.7-7.0) K/uL Lymph # (Auto) 1.00 (0.90-2.90) K/uL [place] # (Auto) 0.60 (0.00-0.90) K/UL Eos # (Auto) 0.15 (0.00-0.50) K/uL Baso # (Auto) 0.03 (0.00-0.30) K/uL Abs Immat Gran (auto) 0.03 (0.00-0.30) K/uL Imm/Tot Granulo (auto) 0.4 % Sodium 140 (135-149) mmol/L Potassium 4.1 (3.6-5.1) mmol/L Chloride 105 (96-114) mmol/L Carbon Dioxide 27 (20-32) mmol/L Anion Gap 8 (7-15) mEq/L BUN 21 (7-30) mg/dL Creatinine 1.1 (0.5-1.5) mg/dL Estimated Creat Clear 36.42 Estimated GFR 54 ml/min Glucose 101 (60-115) mg/dL Lactate 1.1 (0.5-1.9) mmol/L Calcium 9.0 (8.4-10.6) mg/dL Total Bilirubin 0.4 (0.1-1.5) mg/dL Direct Bilirubin 0.4 (0.0-0.5) mg/dL AST 23 (12-35) U/L ALT 10 (4-35) U/L Alkaline Phosphatase 89 (40-150) U/L C-Reactive Protein 2.2 H (0.5-1.0) mg/dL NT-Pro-B Natriuret Pep 166 pg/mL Total Protein 7.7 (6.0-8.3) g/dL Albumin 4.1 (3.3-5.0) g/dL Discharge Plan Discharge Clinical Impression: Low back pain, Chronic pain, Debility, Pressure ulcer Patient Disposition: Home, Self-Care Condition: Stable Instructions: Wound Healing and Your Diet (ED), Pressure Injury (ED) Additional Instructions: You have an open wound over your tailbone. I am very concerned that this will not heal at home with your current level of function, and I would recommend that you reconsider your decision to decline short-term rehab stay. I have requested a consult with the wound clinic here. If you develop new symptoms such as fevers, chills, vomiting, severe pain over her tailbone, you should return to the emergency department. Otherwise, follow-up with Wound Clinic, home health as it sounds like you are currently arranging. Prescriptions: No Action potassium chloride 10 mEq tablet extended release 10 meq PO DAILY furosemide 20 mg tablet 20 mg PO DAILY ferrous sulfate 325 mg (65 mg iron) tablet,delayed release (DR/EC) 325 mg PO DAILY ondansetron 4 mg tablet,disintegrating 4 mg PO Q8H PRN acetaminophen 500 mg capsule 1,000 mg PO TID PRN cholecalciferol (vitamin D3) [Weekly-D] 1,250 mcg (50,000 unit) capsule 1,250 mcg PO 2XW duloxetine 60 mg capsule,delayed release(DR/EC) 60 mg PO DAILY Rx Instructions: START THIS DOSE 10/08 Lactobacillus acidophilus 0.5 mg (100 million cell) Tablet 0.5 mg PO DAILY hydrocortisone 1 % cream 1 applic topical BID Rx Instructions: APPLY TO RASH ON FACE Santyl 250 unit/gram ointment 1 applic topical DAILY Rx Instructions: apply to bilateral calfs diclofenac sodium 1 % gel 2 g topical BID Rx Instructions: apply to mid to low back zinc oxide Ointment 1 applic topical BID Rx Instructions: for incontinence dermatitis celecoxib [Celebrex] 100 mg capsule 100 mg PO DAILY Qty: 30 0RF lidocaine 5 % adhesive patch,medicated 2 patch topical DAILY Qty: 60 0RF Rx Instructions: leave on most painful area for up to 12 hrs nystatin 100,000 unit/gram Powder 1 applic topical BID 14 Days Qty: 30 0RF Follow Up/Referrals: Hill Broderick MD [Primary Care Provider] - Stand Alone Forms: [employer] Info Instructions
--- OUTSIDE RECORDS SUMMARY | 2024-02-27 16:26 | XMS_ITS | Referral Summary ---
Author Organization [facility] Address [address] [place] [address] Care Team Providers Care Medical Record Administrator Name Role Phone Hill Broderick MD Primary Care Provider [phone] Allergies Active Allergy Reactions Criticality Noted Date [...] 136 - 145 mmol/L 10/22/2023 6:03 AM [facility] Potassium 4.3 3.4 - 5.1 mmol/L 10/22/2023 6:03 AM [facility] Chloride 101 98 - 108 mmol/L 10/22/2023 6:03 AM [facility] Carbon Dioxide 29 20 - 31 mmol/L 10/22/2023 6:03 AM [facility] BUN (Urea Nitro) 26(H) 9 - 23 mg/dL 10/22/2023 6:03 AM [facility] Creatinine 1.15(H) 0.55 - 1.02 mg/dL 10/22/2023 6:03 AM [facility] Est GFR (CKD-EPI) 51.67(L) >60.00 mL/min/1. 73m2 10/22/2023 6:03 AM [facility] Comment:Calculation based on the Chronic Kidney Disease Epidemiology Collaboration (CKD-EPI) equation refit without adjustment for race. Glucose 105 74 - 106 mg/dL 10/22/2023 6:03 AM [facility] Calcium, Serum 9.8 8.7 - 10.4 mg/dL 10/22/2023 6:03 AM [facility] Anion Gap 8.0 0.0 - 15.0 mmol/L 10/22/2023 6:03 AM [facility] Blood 10/22/2023 5:12 AM CDT 10/22/2023 5:29 AM CDT Denise Rodriguez APRN, ASSET PROTECTION ASSISTANT CHEMISTRY O RDERABLE [facility] [address] [place] [address] from Last 3 Months or Most Recently Relevant to Health Maintenance Additional Health Concerns Infection Onset Date Last Indicated MRSA Comment:Added from external infection. Source: [employer] [facility]. 12/08/2015 Advance Directives For more information, please contact: [phone] * Full Code (Latest Code Status on [...] was code status determined? Patient Care Teams Medical Record Administrator Relationship Specialty Start Date End Date Hill Broderick MD [address] [facility] [address] PCP - General Family Medicine - 10/13/23
--- OUTSIDE RECORDS SUMMARY | 2024-02-27 16:26 | XMS_ITS | Clinical Summary ---
Author Organization [facility] Address [place], [place] [address] Care Team Providers Care Lab Support Service Tech Name Role Phone Elaine Sapp MD Unavailable [phone] Mary Lo NP Unavailable Hill Broderick MD Primary Care Provider [phone] [facility] Unavailable Allergies Active Allergy Reactions Criticality Noted Date Comments Buspirone Other - Describe In Comment Field 12/25/2021 Too sleepy Doxycycline Nausea And Vomiting 10/08/2016 Cephalexin Nausea Only 12/16/2017 Latex Itching 07/18/2014 Itching Itching on hands, [facility] Late[facility], Natural Rubber Itching 01/10/2016 itching Lisinopril [...] Sapp of Oncology. we will test in [place] so she does not have to go to [place]. Leukocytosis 01/22/2015 Leg weakness, bilateral 12/13/2014 Dysthymia [...] Encounters Date Type Department Care Team Description 02/26/2024 Home Care Visit [facility] [address] [place] [address] Darcie Norman, RN CARE COORDINATION 02/24/2024 Orders Only [facility] Scanner 1 scan: (1-Ord) [facility], XR KNEE LT 2V, 02/24/2024 02/24/2024 Travel 02/23/2024 Telephone [facility] [address] [place] [address] Jennifer Morrison, retention specialist 02/22/2024 2:45 PM CDT Phone Office Visit [facility] [address] [place] [address] Hill Broderick MD Knee Pain/problem (Both knees, pain) 02/22/2024 Travel 02/21/[address] [facility] [address] [place] [address] Hill Broderick MD Refill Request (lidocaine 4 % cream) 02/21/[address] [facility] [address] [place] [address] Hill Broderick MD Refill Request (Lidocaine) 02/18/[address] [facility] [address] [place] [address] Hill Broderick MD Pharmacist Medication Management (durable medical equipment (DME) /) 02/17/[address] [facility] [address] [place] [address] Hill Broderick MD Prior Authorization (LORazepam (ATIVAN) 0.5 mg tab Approved January 18, 2024 to February 16, 2025) 02/17/[address] [address] Hill Broderick MD DME Supply 02/17/[address] [address] Hill Broderick MD DME Supply; Refill Request (gloves) 02/16/[address] [address] Hill Broderick MD Prior Authorization (lorazepam) 02/16/[address] [address] Hill Broderick MD Refill Request 02/15/[address] [address] Hill Broderick MD Appointment (assist patient virtual/) 02/10/[address] [address] Hill Broderick MD Refill Request; Error-please disregard 02/10/[address] [address] Hill Broderick MD Refill Request (Diaper,Brief, Adult,Disposable (Per-Fit Underwear) /) 02/10/[address] [address] Hill Broderick MD Refill Request 02/10/[address] [address] Hill Broderick MD Refill Request (Multiple) from Last 3 Months Immunizations Name Administration Dates Next Due COVID-19 vaccine (Moderna 10 0mcg/0.5mL) DUTCH ANDREW 02/10/2021 COVID-19 vaccine (Pfizer-Bio NTech 30mcg/0.3mL) 12YO+ TONY-SUCROSE DUTCH ANDREW 07/22/2021 Influenza, High-dose Quadriv alent Inactivated 04/01/2020 [...] Other Mother Coretta Dementia Hyperlipidemia Sister 2 [place] Hypertension Sister 2 Tiki Relation Name Status Comments Brother 1 Rocky Alive Brother 2 Ray (Age 58) Father Tiburcio Hernandez (Age 50s) Mother Coretat (Age 70) Sister 1 Concetta Alive Sister [...] 139.7 kg (308 lb) 05/30/2019 2:02 PM [employer] Height 152.4 cm (5') 05/30/2019 2:02 PM [employer] Body Mass Index 60.15 05/30/2019 2:02 PM [employer] Plan of Treatment Health Maintenance Due Date [...] Completed 01/24/2019 Medical Devices Implanted Type Area Golf Tournament Consultant Device Identifier Shelf Expiration Date Model / Serial / Lot Tissue Matrix [id number] Implanted:Qty: 3 on 12/18/2015 by Dimitri Ortega MD at [facility] [id number] / / [id number] Description:TISSUE MATRIX 44 [id number] APLIGRAF Procedures Procedure Name Priority Date/Time Associated Diagnosis Comments SCAN-RADIOLOGY REPORT 02/24/2024 12:00 AM CDT LC LIPID PANEL AND CHOL/HDL RATIO Routine 07/22/2022 3:28 PM [employer] Screening for lipid disorders ANTI HCV Routine 01/24/2019 3:44 PM CDT Need for hepatitis C screening test from Last 3 Months or Most Recently Relevant to Health Maintenance Results * SCAN-RADIOLOGY REPORT (02/24/2024 12:00 AM CDT) Anatomical Region Laterality Modality Other Scanner OTHER * LC LIPID PANEL AND CHOL/HDL RATIO (07/22/2022 3:28 PM [employer]) Cholesterol, Total 109 100 - 199 mg/dL 07/24/2022 12:08 PM [facility] Triglycerides 108 0 - 149 mg/dL 07/24/2022 12:08 PM [facility] HDL Cholesterol 49 >39 mg/dL 12:08 PM [facility] ([facility]) VLDL Cholesterol Chandler 20 5 - 40 mg/dL 07/24/2022 12:08 PM [facility] ([facility]) LDL Chol Calc (NIH) 40 0 - 99 mg/dL 07/24/2022 12:08 PM [facility] ([facility]) T. Chol/HDL Ratio 2.2 0.0 - 4.4 ratio 07/24/2022 12:08 PM [facility] ([facility]) Comment: ?T. Chol/HDL Ratio ?Men ??Women ?1/2 Avg.Risk ??3.4 ?3.3 ?Avg.Risk ??5.0 ?4.4 ? 2X Avg.Risk ??9.6 ?7.1 ? 3X Avg.Risk 23.4 ?? 11.0 Blood BLOOD SPECIMEN / Unknown Butterfly / Unknown 07/22/2022 3:28 PM [employer] 07/22/2022 3:32 PM [employer] Narrative [facility] - 07/24/2022 12:08 PM FINISHED GOODS [employer] Performed at: ??01 - [facility] [address] [place] [address] ??[id number] Head Banquet Waitress: Bari Smith MD, Phone: ??[phone] Hill Broderick MD SEND OUTS [facility] ([facility]) [facility] [place] [address], * ANTI HCV (01/24/2019 3:44 PM CDT) HEPATITIS C ANTIBODY Non-React tamica Non-React tamica 01/25/2019 1:48 AM CDT [facility] [employer] [facility] Comment:Antibodies to HCV no t detected; does not exclude the possibility of exposure to HCV. Blood BLOOD SPECIMEN / Unknown Butterfly / Unknown 01/24/2019 3:44 PM CDT 01/24/2019 3:44 PM CDT Blade Monsalve MD [facility] [address] [place] [address], from Last 3 Months or Most Recently Relevant to Health Maintenance Additional Health Concerns Infection Onset Date Last Indicated MRSA Comment:Order contact precautions. Nares surveillance cultures needed to clear patient. #1 #2 +MRSA RLE 12/05/15 12/08/2015 12/08/2015 Advance Directives Documents on File Type Date Recorded Patient Animal Caregiver Expl anation Healthcare Directive 11/24/2022 023 * [...] Comments Code Status Discussion: Discussed Care Teams Lab Support Service Tech Relationship Specialty Start Date End Date Hill Broderick MD [address] [place] [address] PCP - General Family Practice 05/06/22 Ealine Sapp MD [address] [place] [address] Hematology 10/06/21 Mary Lo NP [address] [place] [address] Hematology 10/06/21 [place] [address] [address] 02/24/24
--- OUTSIDE RECORDS SUMMARY | 2024-02-27 16:26 | XMS_ITS | Clinical Summary ---
Author Organization [facility] Address [address] [place] [address] Care Team Providers Care Germination Testing Manager Name Role Phone Hill Broderick MD Primary Care Provider [phone] Allergies Active Allergy Reactions Criticality Noted Date [...] 136 - 145 mmol/L 10/22/2023 6:03 AM [facility] Potassium 4.3 3.4 - 5.1 mmol/L 10/22/2023 6:03 AM [facility] Chloride 101 98 - 108 mmol/L 10/22/2023 6:03 AM [facility] Carbon Dioxide 29 20 - 31 mmol/L 10/22/2023 6:03 AM [facility] BUN (Urea Nitro) 26(H) 9 - 23 mg/dL 10/22/2023 6:03 AM [facility] Creatinine 1.15(H) 0.55 - 1.02 mg/dL 10/22/2023 6:03 AM CDT [facility] Est GFR (CKD-EPI) 51.67(L) >60.00 mL/min/1. 73m2 10/22/2023 6:[address] [facility] Comment:Calculation based on the Chronic Kidney Disease Epidemiology Collaboration (CKD-EPI) equation refit without adjustment for race. Glucose 105 74 - 106 mg/dL 10/22/2023 6:[address] [facility] Calcium, Serum 9.8 8.7 - 10.4 mg/dL 10/22/2023 6:[address] [facility] Anion Gap 8.0 0.0 - 15.0 mmol/L 10/22/2023 6:[address] [facility] Blood 10/22/2023 5:12 AM CDT 10/22/2023 5:29 AM CDT Denise Rodriguez APRN, MORNING BABYSITTER CHEMISTRY O RDERABLE [facility] [address] [place] [address] from Last 3 Months or Most Recently Relevant to Health Maintenance Additional Health Concerns Infection Onset Date Last Indicated MRSA Comment:Added from external infection. Source: [employer] [facility]. 12/08/2015 Advance Directives For more information, please contact: [phone] * Full Code (Latest Code Status on [...] was code status determined? Patient Care Teams Germination Testing Manager Relationship Specialty Start Date End Date Hill Broderick MD [address] [place] [address] PCP - General Family Medicine - 10/13/23
[2024-02-27 16:58] LABS: Basophils Absolute Auto 0.03 K/uL (0.00-0.30); Basophils Percent Auto 0.4 % (0.0-3.0); Eosinophils Absolute Auto 0.15 K/uL (0.00-0.50); Eosinophils Percent Auto 2.1 % (0.0-7.0); Hematocrit 33.1 % (33.0-51.0); Hemoglobin* 10.1 gm/dL (12.0-16.0); Immature Granulocytes Abs Auto 0.03 K/uL (0.00-0.30); Immature Granulocytes Pct Auto 0.4 %; Lymphocytes Percent Auto 13.8 % (20-44); Mean Corpuscular HGB Conc 31 gm/dL (32-36); Mean Corpuscular Hemoglobin 29 pg (26-34); Mean Corpuscular Volume 94 fL (80-100); Monocytes Percent Auto 8.1 % (0.0-11.0); Neutrophils Percent Auto 75.2 % (42.0-72.0); Platelet Count* 222 K/uL (140-440); RDW Coefficient of Variation % 13.1 % (11.5-15.5); Red Blood Count 3.54 m/uL (4.00-5.20); White Blood Count* 7.26 K/uL (4.50-11.00)
[2024-02-27] MEDS: OXYCODONE 5 MG TABLET PO (16:58)
[2024-02-27 17:01] LABS: Lactate Sepsis w/Reflex* 1.1 mmol/L (0.5-1.9)
[2024-02-27 17:02] LABS: Slide Review Reflex No
[2024-02-27 17:17] LABS: Albumin* 4.1 g/dL (3.3-5.0); Chloride* 105 mmol/L (96-114)
[2024-02-27 17:18] LABS: Potassium* 4.1 mmol/L (3.6-5.1); Sodium* 140 mmol/L (135-149)
[2024-02-27 17:20] LABS: Alkaline Phosphatase* 89 U/L (40-150); Anion Gap 8 mEq/L (7-15); Aspartate Amino Transferase* 23 U/L (12-35); Bilirubin Direct* 0.4 mg/dL (0.0-0.5); Bilirubin Total* 0.4 mg/dL (0.1-1.5); Blood Urea Nitrogen* 21 mg/dL (7-30); Carbon Dioxide* 27 mmol/L (20-32); Creatinine* 1.1 mg/dL (0.5-1.5); Est. Creatinine Clearance* 36.42; Estimated Glomerular Filt Rate 54 ml/min; Glucose* 101 mg/dL (60-115); Total Protein* 7.7 g/dL (6.0-8.3)
[2024-02-27 17:21] LABS: Alanine Aminotransferase* 10 U/L (4-35)
[2024-02-27 17:32] LABS: NT Pro B Type NatriureticPept* 166 pg/mL
[2024-02-27 17:39] LABS: C Reactive Protein* 2.2 mg/dL (0.5-1.0)
[2024-02-27] MEDS: ONDANSETRON ODT 4 MG TAB PO (18:19)
== END 2024-02-27 19:26 | disposition home or self-care (01) ==
PROVIDERS: Emergency Provider Emergency Medicine; PCP Family Medicine
DX: M54.50 Low back pain, unspecified (principal); G89.29 Other chronic pain; R53.81 Other malaise; L89.159 Pressure ulcer of sacral region, unspecified stage
CPT/HCPCS: 36415; 80048; 80076; 83605; 83880; 85025; 86140; 96374; 99284; A0425; A0427; A0428; A9270

== ENCOUNTER 2024-02-29 11:16 | Inpatient (IN) | payer MEDICARE, SELFPAY ==
[2024-02-29] VITALS (37 sets, daily range): BP systolic 114–137; BP diastolic 54–77; PULSE 74–104; RESP 18–22; TEMP 36.1–36.2; O2SAT 83–100; BMI 49.8
--- NOTE | 2024-02-29 11:51 | ED.GENADULT ---
HPI - General Adult General Chief complaint: Extremity Pain/Injury, Lower Stated complaint: Back pain leg pain Time Seen by Provider: 02/29/24 11:50 History of Present Illness HPI narrative: Pt was adjusting herself in her power chair, and felt she injured her lower left leg with this. Also complaining of back pain. 68-year-old woman presenting to the emergency department with concern of severe left lower leg pain. Arrives via ambulance. Apparently was trying to press herself up in her power chair and had sudden pain in her left knee and below. Does have a history of osteoarthritic pain and chronic low back pain. As well as chronic poorly healing pressure ulcer of the sacrum. Was seen here 2 days ago with complaint of low back/pelvic pain. Recommended for short-term rehab but declined; she notes how cannot afford the bills that have been associated with this in the past noting that she still owes thousands of dollars. Is anticipating home health nurse arrival tomorrow. Gracia was assisted up by law enforcement. I note a small skin tear on her right hand apparently in the process. We discussed pain management inches reluctant to feel ?loopy?. Did receive 5 mg of oxycodone during last visit. She does not want me to examine her leg until she received some pain medication. She says she can not even lift her leg due to pain. Third visit to the emergency department in 4 days. Was evaluated for left knee pain on 02/23- and for other pain complaints and pressure ulcer stage IV on 02/26. Related Data Home Medications ?Medication ?Instructions ?Recorded ?Confirmed acetaminophen 500 mg capsule 1,000 mg PO TID PRN 03/28/23 03/01/24 ferrous sulfate 325 mg (65 mg 325 mg PO DAILY 03/28/23 03/01/24 iron) tablet,delayed release furosemide 20 mg tablet 20 mg PO DAILY 03/28/23 03/01/24 ondansetron 4 mg disintegrating 4 mg PO Q8H PRN 03/28/23 03/01/24 tablet potassium chloride 10 mEq 10 meq PO DAILY 03/28/23 03/01/24 tablet,extended release duloxetine 60 mg capsule,delayed 60 mg PO DAILY 10/04/23 03/01/24 release zinc oxide 1 applic topical BID PRN 10/04/23 03/01/24 citalopram 20 mg tablet 20 mg PO DAILY 03/01/24 03/01/24 lidocaine 4 % topical cream 1 applic topical DAILY PRN 03/01/24 03/01/24 lorazepam 0.5 mg tablet 0.5 mg PO DAILY PRN 03/01/24 03/01/24 Allergies Allergy/AdvReac Type Severity Reaction Status Date / Time amoxicillin Allergy Unknown Verified 02/29/24 11:44 buspirone [From BuSpar] Allergy Unknown Verified 02/29/24 11:44 cephalexin [From Keflex] Allergy Unknown Verified 02/29/24 11:44 doxycycline Allergy Unknown Verified 02/29/24 11:44 latex Allergy Unknown Verified 02/29/24 11:44 lisinopril Allergy Unknown Verified 02/29/24 11:44 Penicillins Allergy Unknown Verified 02/29/24 11:44 Sulfa (Sulfonamide Allergy Unknown Verified 02/29/24 11:44 Antibiotics) Review of Systems Status of ROS: Reports: other (Numerous. Best focused in HPI) [facility] Medical History (Updated 03/06/24 @ 10:44 by Daysi Ventura MD) Discharge planning issues ?Z75.8 - Other problems related to medical facilities and other health care (ICD-10) Seborrheic dermatitis ?L21.9 - Seborrheic dermatitis, unspecified (ICD-10) At risk for venous thromboembolism (VTE) ?Z91.89 - Other specified personal risk factors, not elsewhere classified (ICD-10) Anxiety ?F41.9 - Anxiety disorder, unspecified (ICD-10) Cognitive impairment ?R41.89 - Other symptoms and signs involving cognitive functions and awareness (ICD-10) Anemia ?D64.9 - Anemia, unspecified (ICD-10) GI bleeding ?K92.2 - Gastrointestinal hemorrhage, unspecified (ICD-10) Ulcer of sacral region, stage 4 ?L98.429 - Non-pressure chronic ulcer of back with unspecified severity (ICD-10) Stage IV pressure ulcer of sacral region ?L89.154 - Pressure ulcer of sacral region, stage 4 (ICD-10) Chronic pain ?G89.29 - Other chronic pain (ICD-10) Recurrent depression ?F33.9 - Major depressive disorder, recurrent, unspecified (ICD-10) Panic attacks ?F41.0 - Panic disorder [episodic paroxysmal anxiety] (ICD-10) Insomnia ?G47.00 - Insomnia, unspecified (ICD-10) Restless legs syndrome ?G25.81 - Restless legs syndrome (ICD-10) Urge incontinence of urine ?N39.41 - Urge incontinence (ICD-10) Controlled substance agreement signed ?Z79.899 - Other fpc (current) drug therapy (ICD-10) Vitamin D deficiency ?E55.9 - Vitamin D deficiency, unspecified (ICD-10) MRSA (methicillin resistant staph aureus) culture positive (~12/05/15) ?Z22.322 - Carrier or suspected carrier of Methicillin resistant Staphylococcus aureus (ICD-10) Left ureteral stone (~12/11/15) ?N20.1 - Calculus of ureter (ICD-10) CKD (chronic kidney disease), stage III ?N18.30 - Chronic kidney disease, stage 3 unspecified (ICD-10) Acute osteomyelitis of coccyx (~08/2015) ?M46.28 - Osteomyelitis of vertebra, sacral and sacrococcygeal region (ICD-10) Ulcers of both lower extremities with fat layer exposed ?L97.912 - Non-pressure chronic ulcer of unspecified part of right lower leg with fat layer exposed (ICD-10) ?L97.922 - Non-pressure chronic ulcer of unspecified part of left lower leg with fat layer exposed (ICD-10) Iron deficiency 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 ?D50.1 - Sideropenic dysphagia (ICD-10) Acute kidney injury (~01/2015) ?N17.9 - Acute kidney failure, unspecified (ICD-10) Dysthymia ?F34.1 - Dysthymic disorder (ICD-10) Bilateral leg weakness ?R29.898 - Other symptoms and signs involving the musculoskeletal system (ICD-10) Chronic acquired lymphedema ?I89.0 - Lymphedema, not elsewhere classified (ICD-10) Chronic, continuous use of opioids ?F11.90 - Opioid use, unspecified, uncomplicated (ICD-10) Venous stasis ulcer of thigh with fat layer exposed ?I83.001 - Varicose veins of unspecified lower extremity with ulcer of thigh (ICD-10) ?L97.102 - Non-pressure chronic ulcer of unspecified thigh with fat layer exposed (ICD-10) Elevated TSH ?R79.89 - Other specified abnormal findings of blood chemistry (ICD-10) DJD (degenerative joint disease) of knee ?M17.9 - Osteoarthritis of knee, unspecified (ICD-10) Morbid obesity ?E66.01 - Morbid (severe) obesity due to excess calories (ICD-10) Essential hypertension ?I10 - Essential (primary) hypertension (ICD-10) Surgical History S/P debridement ?Z98.890 - Other specified postprocedural states (ICD-10) S/P ureteral stent placement ?Z96.0 - Presence of urogenital implants (ICD-10) Family History Brother Diabetes Cardiovascular disease Father Cardiovascular disease High blood pressure Sister High cholesterol High blood pressure Mother Dementia Social History (Updated 02/29/24 @ 23:58 by Rocio Jorge MD) Narrative: Lives independently, partner Alex often with her; he is here with her today. 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 Smoked an average of 0.3 packs per day for 2 years, quit in 1970. Denies alcohol use. Denies recreational drug use. Wishes to be full code. Sons Bhargav or Bill would be primary medical decision maker if needed. What is your current living situation?: I presently have a place to live Problems where you live: no known problems Problems where you live details: None In the past 12 months, utilities in danger of being shut off: no In past 12 months, lack of transportation kept you from medical appts, meetings, work, or getting things needed for daily living: no In the past 12 mos, have been you worried that your food would run out before you had money to buy more?: never true In the past 12 mos, the food you bought just didn't last and you didn't have money to buy more?: never true Highest level of school completed/degree received: 11th grade Smoking Status: Never smoker Do you use any of these nicotine containing products: None Second hand tobacco smoke exposure: No How often do you have a drink containing alcohol: never How often do you have six or more drinks on one occasion: Never AUDIT-C Alcohol total score: 0 Non-prescribed substance use: denies use Caffeine: No How often does anyone, including family, friends and others, physically hurt you: never How often does anyone, including family, friends and others, insult or talk down to you: never How often does anyone, including family, friends and others, threaten you with harm: never How often does anyone, including family, friends and others, scream or curse at you: never service: No Exam Narrative: Exam Narrative: Clearly very uncomfortable and near tears at times. Is breathing easily oxygenating 93%. Morbidly obese. Marked lymphedema of the lower extremities. On the left leg it is mildly externally rotated. Slightly bent. There is some intertrigo evident or erythema without induration I might associated with cellulitis in the folds and in the anti geniculate fossa that is a little visible on initial exam. There is also semi lunar dorsum middle right hand inch and a half length skin tear. Re-examination later with more clear peripatellar pain Const: Vital Signs, click to edit/add: Vital Signs - 24 hr 02/29/24 11:40 02/29/24 11:46 02/29/24 13:45 Temperature 97.2 F L Pulse Rate 83 Pulse Rate [Right Pulse Oximeter] 85 Respiratory Rate 22 Blood Pressure Blood Pressure [Ri ght Upper Arm] 125/59 L Pulse Oximetry 93 91 Oxygen Delivery Me thod Room Air Oxygen Flow Rate 02/29/24 14:40 02/29/24 14:44 02/29/24 14:45 Temperature Pulse Rate 84 80 80 Pulse Rate [Right Pulse Oximeter] Respiratory Rate Blood Pressure 134/57 L Blood Pressure [Ri ght Upper Arm] Pulse Oximetry 89 91 89 Oxygen Delivery Me thod Oxygen Flow Rate 02/29/24 15:00 02/29/24 15:02 02/29/24 15:03 Temperature Pulse Rate 83 78 82 Pulse Rate [Right Pulse Oximeter] Respiratory Rate Blood Pressure 114/65 Blood Pressure [Ri ght Upper Arm] Pulse Oximetry 94 98 Oxygen Delivery Me thod Oxygen Flow Rate 02/29/24 15:20 02/29/24 15:28 02/29/24 15:30 Temperature Pulse Rate 86 85 Pulse Rate [Right Pulse Oximeter] Respiratory Rate 18 Blood Pressure Blood Pressure [Ri ght Upper Arm] Pulse Oximetry 89 90 Oxygen Delivery Me thod Oxygen Flow Rate 02/29/24 15:32 02/29/24 15:45 02/29/24 16:00 Temperature Pulse Rate 78 76 79 Pulse Rate [Right Pulse Oximeter] Respiratory Rate Blood Pressure 131/64 Blood Pressure [Ri ght Upper Arm] Pulse Oximetry 97 100 100 Oxygen Delivery Me thod Nasal Cannula Nasal Cannula Nasal Cannula Oxygen Flow Rate 2 2 2 02/29/24 16:02 02/29/24 16:15 02/29/24 16:30 Temperature Pulse Rate 77 82 81 Pulse Rate [Right Pulse Oximeter] Respiratory Rate Blood Pressure 130/56 L Blood Pressure [Ri ght Upper Arm] Pulse Oximetry 98 99 96 Oxygen Delivery Me thod Nasal Cannula Nasal Cannula Nasal Cannula Oxygen Flow Rate 2 2 1 02/29/24 16:32 02/29/24 16:45 02/29/24 17:00 Temperature Pulse Rate 74 76 82 Pulse Rate [Right Pulse Oximeter] Respiratory Rate Blood Pressure 132/65 Blood Pressure [Ri ght Upper Arm] Pulse Oximetry 90 90 96 Oxygen Delivery Me thod Nasal Cannula Nasal Cannula Oxygen Flow Rate 1 1 02/29/24 17:02 02/29/24 17:17 02/29/24 17:30 Temperature Pulse Rate 84 87 83 Pulse Rate [Right Pulse Oximeter] Respiratory Rate Blood Pressure 117/77 Blood Pressure [Ri ght Upper Arm] Pulse Oximetry 96 97 94 Oxygen Delivery Me thod Oxygen Flow Rate 02/29/24 17:32 02/29/24 17:45 02/29/24 18:00 Temperature Pulse Rate 82 86 94 Pulse Rate [Right Pulse Oximeter] Respiratory Rate Blood Pressure 122/56 L Blood Pressure [Ri ght Upper Arm] Pulse Oximetry 95 100 96 Oxygen Delivery Me thod Oxygen Flow Rate 02/29/24 18:03 02/29/24 18:15 02/29/24 18:30 Temperature Pulse Rate 104 H 94 97 Pulse Rate [Right Pulse Oximeter] Respiratory Rate Blood Pressure 119/54 L Blood Pressure [Ri ght Upper Arm] Pulse Oximetry 83 L 88 85 L Oxygen Delivery Me thod Oxygen Flow Rate 02/29/24 19:02 Temperature Pulse Rate Pulse Rate [Right Pulse Oximeter] Respiratory Rate Blood Pressure 135/70 Blood Pressure [Ri ght Upper Arm] Pulse Oximetry Oxygen Delivery Me thod Oxygen Flow Rate Documenting provider has reviewed patient's vital signs: yes Course Vital Signs Vital signs: Initial Vital Signs Pulse Rate 85 09/17/24 11:40 Pulse Rhythm Regular 02/29/24 11:40 Respiratory Rate 22 02/29/24 11:40 Blood Pressure 125/59 L 02/29/24 11:40 Blood Pressure Mean 81 02/29/24 11:40 Blood Pressure Position Sitting 02/29/24 11:40 Pulse Oximetry 93 02/29/24 11:40 Oxygen Delivery Method Room Air 02/29/24 11:40 Vital Signs Pulse Rate 85 02/29/24 11:40 Respiratory Rate 22 02/29/24 11:40 Blood Pressure 125/59 L 02/29/24 11:40 Pulse Oximetry 93 02/29/24 11:40 Oxygen Delivery Method Room Air 02/29/24 11:40 Temperature 97.2 F L 03/06/24 07:00 Pulse Rate 60 03/06/24 07:00 Respiratory Rate 28 H 03/06/24 07:00 Blood Pressure 122/58 L 03/06/24 07:00 Pulse Oximetry 95 03/06/24 10:06 Oxygen Delivery Method Room Air 03/06/24 07:00 Oxygen Flow Rate 1 03/03/24 07:00 Fraction of Inspired Oxygen 25 03/03/24 08:15 Medications Administered Medications: Generic Name Dose Route Start Last Admin Trade Name Freq PRN Reason Stop Dose Admin Acetaminophen 1,000 mg 03/01/24 09:26 03/06/24 00:57 Acetaminophen 500 Mg Tablet PO 1,000 mg TID PRN Administration Celecoxib 100 mg 03/02/24 09:00 03/06/24 09:39 Celecoxib 100 Mg Capsule PO 100 mg DAILY JONATAN Administration Duloxetine HCl 60 mg 03/02/24 09:00 03/06/24 09:40 Duloxetine [address] PO 60 mg DAILY JONATAN Administration Enoxaparin Sodium 40 mg 03/01/24 21:00 03/05/24 20:14 Enoxaparin 40 Mg/0.4 Ml Inj SUBCUT 40 mg HS JONATAN Administration Ferrous Sulfate 325 mg 03/02/24 09:00 03/06/24 09:39 Ferrous Sulfate 325 Mg Tablet PO 325 mg DAILY JONATAN Administration Fluticasone Propionate 1 spray 03/05/24 09:00 03/06/24 09:40 Fluticasone Propionate Nasal NOSTRIL-B Not Given DAILY JONATAN Hydrocortisone/Aloe 1 applic 03/01/24 21:00 03/06/24 09:40 Hydrocortisone 1 % Cream TOPICAL Not Given BID [facility] Ertapenem 1 gm/ Sodium 100 mls @ 200 mls/hr 03/06/24 10:30 03/06/24 11:39 Chloride IVPB Infused Q24H JONATAN Infusion Lactobacillus Acidophilus 1 tab 03/02/24 09:00 03/06/24 09:38 Lactobacillus Acidophilus 1 Tablet PO 1 tab DAILY JONATAN Administration Lidocaine 1 patch 03/01/24 00:45 03/06/24 00:51 Lidocaine 5% Patch TRANSDERMA 1 patch Q24H JONATAN Administration Protocol Lidocaine 2 patch 03/01/24 09:45 03/06/24 09:32 Lidocaine 5% Patch TRANSDERMA 2 patch DAILY JONATAN Administration Protocol Metoprolol Succinate 50 mg 03/03/24 09:00 03/06/24 09:39 Metoprolol Succinate (Xl) 50 Mg Tab PO 50 mg DAILY JONATAN Administration Nystatin 1 applic 03/01/24 21:00 03/06/24 09:41 Nystatin Powder TOPICAL 1 applic BID JONATAN Administration Omeprazole 20 mg 03/02/24 07:00 03/06/24 06:49 Omeprazole [address] PO 20 mg DAILY@0700 [facility] Administration Ondansetron HCl 4 mg 03/03/24 17:23 03/03/24 17:29 Ondansetron 2 Mg/Ml Inj IVP 4 mg Q4H PRN Administration Nausea Ondansetron HCl 4 mg 03/03/24 17:23 03/05/24 12:32 Ondansetron Odt 4 Mg Tab PO 4 mg Q4H PRN Administration Oxycodone HCl 2.5 - 5 mg 03/03/24 13:24 03/06/24 07:30 Oxycodone 5 Mg Tablet PO 2.5 mg Q4H PRN Administration Potassium Chloride 20 meq 03/03/24 09:15 03/06/24 09:38 Potassium Chloride 10 Meq Capsule Er PO 20 meq DAILYWM JONATAN Administration Sodium Chloride 5 ml 03/02/24 09:00 03/06/24 09:41 Sodium Chloride 0.9 % (Flush) 10 Ml Syringe IVF 5 ml BID JONATAN Administration Spironolactone 25 mg 03/03/24 09:00 03/06/24 09:39 Spironolactone 25 Mg Tablet PO 25 mg DAILY JONATAN Administration Torsemide 20 mg 09/21/24 10:00 03/06/24 09:39 Torsemide 20 Mg Tablet PO 20 mg BID@0800,2000 JONATAN Administration Discontinued Medications Generic Name Dose Route Start Last Admin Trade Name Woodrow PRN Reason Stop Dose Admin Buprenorphine HCl 1 mg 03/01/24 21:00 03/01/24 20:54 Buprenorphine Hcl 2 Mg Tab.Subl SUBLINGUAL 1 mg BID JONATAN Administration Furosemide 40 mg 03/02/24 02:05 03/02/24 02:24 Furosemide 10 Mg/Ml Inj IVP 03/02/24 02:06 40 mg ONCE STA Administration Furosemide 40 mg 03/02/24 07:51 03/02/24 08:09 Furosemide 10 Mg/Ml Inj IVP 03/02/24 07:52 40 mg ONCE ONE Administration Furosemide 40 mg 03/02/24 17:50 03/02/24 18:20 Furosemide 10 Mg/Ml Inj IVP 03/02/24 17:51 40 mg ONCE ONE Administration Ketorolac Tromethamine 30 mg 02/29/24 12:00 02/29/24 12:13 Ketorolac 30 Mg/Ml Inj IM 02/29/24 12:01 30 mg ONCE ONE Administration Lorazepam 0.5 mg 02/29/24 14:21 02/29/24 14:35 Lorazepam 2 Mg/Ml Inj IM 02/29/24 14:22 0.5 mg ONCE ONE Administration Lorazepam 1 mg 03/01/24 12:30 03/01/24 13:37 Lorazepam 2 Mg/Ml Inj IM 03/01/24 12:31 1 mg ONCE ONE Administration Lorazepam 1 mg 03/02/24 02:07 03/02/24 02:17 Lorazepam 2 Mg/Ml Inj IVP 1 mg Q6H PRN Administration Agitation Lorazepam 0.25 mg 03/02/24 22:18 03/02/24 22:27 Lorazepam 2 Mg/Ml Inj IVP 03/02/24 22:19 0.25 mg ONCE ONE Administration Metoprolol Tartrate 5 mg 03/02/24 07:43 03/02/24 08:09 Metoprolol Tartrate 1 Mg/Ml Inj IVP 03/02/24 07:44 5 mg ONCE ONE Administration Morphine Sulfate 4 mg 02/29/24 12:00 02/29/24 12:13 Morphine 4 Mg/Ml Inj IM 02/29/24 12:01 4 mg ONCE ONE Administration Morphine Sulfate 4 mg 02/29/24 13:49 02/29/24 14:57 Morphine 4 Mg/Ml Inj IVP 02/29/24 13:50 Not Given ONCE ONE Morphine Sulfate 4 mg 02/29/24 14:17 02/29/24 14:35 Morphine 4 Mg/Ml Inj IM 02/29/24 14:18 4 mg ONCE ONE Administration Morphine Sulfate 4 mg 03/01/24 11:30 03/01/24 12:29 Morphine 4 Mg/Ml Inj IM 03/01/24 11:31 4 mg ONCE ONE Administration Oxycodone HCl 5 mg 03/01/24 10:54 03/01/24 10:56 Oxycodone 5 Mg Tablet PO 5 mg Q2H PRN Administration Potassium Bicarbonate 25 meq 03/02/24 18:00 03/02/24 19:44 Potassium Bicarb 25 Meq Effervescent Tab PO 03/02/24 20:01 25 meq Q2H JONATAN Administration Potassium Chloride 10 meq 03/02/24 09:00 03/02/24 12:46 Potassium Chloride 10 Meq Capsule Er PO 10 meq DAILY [facility] Administration Sodium Chloride 5 ml 03/01/24 09:00 03/02/24 16:55 Sodium Chloride 0.9 % (Flush) 10 Ml Syringe IVF Not Given BID [facility] Torsemide 40 mg 03/03/24 09:00 03/03/24 09:38 Torsemide 20 Mg Tablet PO 40 mg BID@0800,1400 [facility] Administration Torsemide 40 mg 03/03/24 20:00 03/04/24 12:45 Torsemide 20 Mg Tablet PO Not Given BID@0800,2000 [facility] Medical Decision Making [facility] Narrative Medical decision making narrative: Certainly could have been an occult fracture anywhere along this leg. Would image the left tib-fib. This is not appear to have been a new weakness related complete. I suppose may have subluxed the knee/knee cap. This is in the setting of severe osteoarthritic disease and pain. It may be that is referring pain from her hip as well. Not sure that the redness I am seeing rises to the level of cellulitis at this point. Does have recurrent/chronic dermatitis due to incontinence. At this point pressure ulcer has not been re-evaluated. Given low-dose morphine and ketorolac for pain. Return to cleanse and approximate the skin tear on the right hand. Cleansed with Shur-Clens solution. Placed Tegaderm with good wound approximation. X-ray of the left tib fib reviewed by me seems to show an abnormality at the anterior upper proximal tibia. Possible avulsion? Severe osteoarthritic/degenerative changes. Osteopenia particularly in the distal fibula. Femur other than distal osteoarthritic changes looks unremarkable. Radiology over-read noting only chronic changes. To to clarify whether there might be some further injury in the knee and what appears to be more localized peripatellar pain on reexamination, I do request a CT scan of the knee. Did review these images personally. Radiology over-read as below TECHNIQUE: CT of the left knee without intravenous contrast. FINDINGS: Challenging examination due to motion artifact and large patient body habitus causing pronounced quantum mottle artifact. Diffuse osseous demineralization. Severe degenerative change of the knee. No acute displaced fracture is identified. No substantial joint effusion. Diffuse soft tissue edema. IMPRESSION: Markedly artifactually degraded examination. No acute displaced fracture is identified. Severe degenerative change of the knee. Diffuse soft tissue edema. If there is a persistent clinical concern for fracture, MRI could be considered for more sensitive evaluation. Concerns of are expressed as to what can be accomplished in 1 night as she is requesting at least 1 night of stay here in the hospital; simply due to pain in believe weakness does not feel she can return home. Unable to safely stand on her own, examining again sacral area in the bed. Visualize healing large pressure ulcer at the left upper buttock area. The left leg has more broad erythema with more intense calor and induration. Quite inflamed into the inguinal area as well. Exquisitely tender to palpation generally here. Again is hard to say that she does not have a cellulitis secondarily. Other source of infection? Partner/boyfriend/caregiver arrives much later emphasizing however the last few days she has been increasingly more weak. He notes how she is not able to stand long enough for him to accomplish usual cares. Will discuss again admission with our hospitalist. Will need to obtain labs. Due to challenges initially placing IV had been treating with IM pain medication. Clearly is unable to care for self and clearly decompensating and caregivers are unable to care for her. I would consider Ms. Louise a vulnerable adult in need of long-term care. I discussed again with hospitalist another staff. This is a challenging situation. Discussed with Ms. Louise that will likely need assisted stay and would benefit from guardianship. Medical Records Medical records reviewed: Yes I reviewed the patient's medical records Lab Data Lab results reviewed: Yes I reviewed the patient's lab results Labs: Lab Results 02/29/24 03/01/24 03/02/24 Range/Units 19:01 17:16 01:45 WBC 5.82 (4.50-11.00) K/uL RBC 3.43 L (4.00-5.20) m/uL Hgb 9.8 L (12.0-16.0) gm/dL Hct 32.7 L (33.0-51.0) % MCV 95 (80-100) fL MCH 29 (26-34) pg MCHC 30 L (32-36) gm/dL RDW Coeff of Vilma 13.2 (11.5-15.5) % Plt Count 192 (140-440) K/uL Neut % (Auto) 70.5 (42.0-72.0) % Lymph % (Auto) 17.2 L (20-44) % [place] % (Auto) 9.6 (0.0-11.0) % Eos % (Auto) 1.7 (0.0-7.0) % Baso % (Auto) 0.5 (0.0-3.0) % Neut # (Auto) 4.10 (1.7-7.0) K/uL Lymph # (Auto) 1.00 (0.90-2.90) K/uL [place] # (Auto) 0.60 (0.00-0.90) K/UL Eos # (Auto) 0.10 (0.00-0.50) K/uL Baso # (Auto) 0.03 (0.00-0.30) K/uL Abs Immat Gran (auto) 0.03 (0.00-0.30) K/uL Imm/Tot Granulo (auto) 0.5 % ABG pH 7.25 L (7.35-7.45) ABG pCO2 68 H* (35-45) mmHG ABG pO2 82.2 (80-105) mmHG ABG HCO3 30 H (21-28) mmol/L ABG Total CO2 28 (21-30) mmol/l ABG O2 Saturation 96 (92-100) % ABG Base Excess 1.2 (-3.0-3.0) mmol/L Carboxyhemoglobin 1.7 (0.0-5.0) % Sodium 139 (135-149) mmol/L Potassium 4.1 (3.6-5.1) mmol/L Chloride 107 (96-114) mmol/L Carbon Dioxide 27 (20-32) mmol/L Anion Gap 5 L (7-15) mEq/L BUN 22 (7-30) mg/dL Creatinine 1.1 (0.5-1.5) mg/dL Estimated Creat Clear 41.68 Estimated GFR 54 ml/min Glucose 122 H (60-115) mg/dL Lactate 1.4 (0.5-1.9) mmol/L Calcium 8.6 (8.4-10.6) mg/dL Magnesium 2.3 (1.5-2.6) mg/dL Troponin I (0.01-0.04) ng/mL C-Reactive Protein 3.8 H (0.5-1.0) mg/dL NT-Pro-B Natriuret Pep pg/mL Urine Color Yellow (Yellow) Urine Appearance Clear (Clear) Urine pH 5.0 (5.0-8.5) Ur Specific [place] >= 1.030 (1.000-1.030) Urine Protein 1+ A (Negative) Urine Glucose (UA) Negative (Negative) Urine Ketones 1+ A (Negative) Urine Blood 3+ A (Negative) Urine Nitrite Positive A (Negative) Urine Bilirubin Negative (Negative) Urine Urobilinogen 0.2 (0.2-1.0) Ur Leukocyte Esterase Negative (Negative) Urine RBC 0-2 (0-2) Urine WBC 0-2 (0-5) Ur Squamous Epith Cells Few (None-Few) Urine Bacteria Few A (None) Lab Acknowledgement 03/02/24 03/02/24 Range/Units 02:15 07:08 WBC (4.50-11.00) K/uL RBC (4.00-5.20) m/uL Hgb (12.0-16.0) gm/dL Hct (33.0-51.0) % MCV (80-100) fL MCH (26-34) pg MCHC (32-36) gm/dL RDW Coeff of Vilma (11.5-15.5) % Plt Count (140-440) K/uL Neut % (Auto) (42.0-72.0) % Lymph % (Auto) (20-44) % [place] % (Auto) (0.0-11.0) % Eos % (Auto) (0.0-7.0) % Baso % (Auto) (0.0-3.0) % Neut # (Auto) (1.7-7.0) K/uL Lymph # (Auto) (0.90-2.90) K/uL [place] # (Auto) (0.00-0.90) K/UL Eos # (Auto) (0.00-0.50) K/uL Baso # (Auto) (0.00-0.30) K/uL Abs Immat Gran (auto) (0.00-0.30) K/uL Imm/Tot Granulo (auto) % ABG pH (7.35-7.45) ABG pCO2 (35-45) mmHG ABG pO2 (80-105) mmHG ABG HCO3 (21-28) mmol/L ABG Total CO2 (21-30) mmol/l ABG O2 Saturation (92-100) % ABG Base Excess (-3.0-3.0) mmol/L Carboxyhemoglobin (0.0-5.0) % Sodium 142 (135-149) mmol/L Potassium 4.3 (3.6-5.1) mmol/L Chloride 106 (96-114) mmol/L Carbon Dioxide 29 (20-32) mmol/L Anion Gap 7 (7-15) mEq/L BUN 18 (7-30) mg/dL Creatinine 1.0 (0.5-1.5) mg/dL Estimated Creat Clear 45.85 Estimated GFR 61 ml/min Glucose 117 H (60-115) mg/dL Lactate (0.5-1.9) mmol/L Calcium 8.7 (8.4-10.6) mg/dL Magnesium (1.5-2.6) mg/dL Troponin I 0.03 (0.01-0.04) ng/mL C-Reactive Protein (0.5-1.0) mg/dL NT-Pro-B Natriuret Pep 2710 pg/mL Urine Color (Yellow) Urine Appearance (Clear) Urine pH (5.0-8.5) Ur Specific [place] (1.000-1.030) Urine Protein (Negative) Urine Glucose (UA) (Negative) Urine Ketones (Negative) Urine Blood (Negative) Urine Nitrite (Negative) Urine Bilirubin (Negative) Urine Urobilinogen (0.2-1.0) Ur Leukocyte Esterase (Negative) Urine RBC (0-2) Urine WBC (0-5) Ur Squamous Epith Cells (None-Few) Urine Bacteria (None) Lab Acknowledgement Test Added Discharge Plan Discharge Clinical Impression: Pain, Morbid obesity, Osteoarthritis, Adult failure to thrive Patient Disposition: Admitted As Observation Condition: Stable
--- NOTE | 2024-02-29 12:01 | CRLHL7_ITS ---
For Patients: As a result of the Century Cures Act, medical imaging exams and procedure reports are released immediately into your electronic medical record. You may view this report before your referring provider. If you have questions, please contact your health care provider. Indication: Sudden left lower leg pain under strain Comparison: None available. Technique: AP and lateral views left tibia and fibula were obtained. Findings: There is no displaced fracture or dislocation. There is severe tricompartmental degenerative change within the tibiofemoral joint. Additional moderate degenerative changes of the tibiotalar joint are appreciated. There is moderate to severe superficial soft tissue prominence. Impression: Moderate to severe superficial soft tissue prominence. No evidence of displaced fracture. Severe degenerative changes of the knee and visualized ankle. Dictated by Deep Alonzo MD @ 02/29/2024 1:45:16 PM (Electronically Signed)
--- OUTSIDE RECORDS SUMMARY | 2024-02-29 12:08 | XMS_ITS | Clinical Summary ---
Author Organization [facility] Address [address] [place] [address] Care Team Providers Care Artificial Cherry Maker Name Role Phone Hill Broderick MD Primary Care Provider [phone] Allergies Active Allergy Reactions Criticality Noted Date [...] Zoster Vaccine (1 of 2) 2004 RSV Vaccines (1 - 1-dose 60+ series) 2014 Adult [...] 136 - 145 mmol/L 10/22/2023 6:03 AM [facility] Potassium 4.3 3.4 - 5.1 mmol/L 10/22/2023 6:03 AM [facility] Chloride 101 98 - 108 mmol/L 10/22/2023 6:03 AM [facility] Carbon Dioxide 29 20 - 31 mmol/L 10/22/2023 6:03 AM [facility] BUN (Urea Nitro) 26(H) 9 - 23 mg/dL 10/22/2023 6:03 AM [facility] Creatinine 1.15(H) 0.55 - 1.02 mg/dL 10/22/2023 6:03 AM CDT [facility] Est GFR (CKD-EPI) 51.67(L) >60.00 mL/min/1. 73m2 10/22/2023 6:[address] [facility] Comment:Calculation based on the Chronic Kidney Disease Epidemiology Collaboration (CKD-EPI) equation refit without adjustment for race. Glucose 105 74 - 106 mg/dL 10/22/2023 6:[address] [facility] Calcium, Serum 9.8 8.7 - 10.4 mg/dL 10/22/2023 6:[address] [facility] Anion Gap 8.0 0.0 - 15.0 mmol/L 10/22/2023 6:[address] [facility] Blood 10/22/2023 5:12 AM CDT 10/22/2023 5:29 AM CDT Denise Rodriguez APRN, HOOP EXPANDER CHEMISTRY O RDERABLE [facility] [address] [place] [phone] from Last 3 Months or Most Recently Relevant to Health Maintenance Additional Health Concerns Infection Onset Date Last Indicated MRSA Comment:Added from external infection. Source: [employer] [facility]. 12/08/2015 Advance Directives For more information, please contact: [phone] * Full Code (Latest Code Status on [...] was code status determined? Patient Care Teams Artificial Cherry Maker Relationship Specialty Start Date End Date Hill Broderick MD [address] [place] [address] PCP - General Family Medicine - 10/13/23
--- OUTSIDE RECORDS SUMMARY | 2024-02-29 12:09 | XMS_ITS | Referral Summary ---
Author Organization [facility] Address [address] [place] [address] Care Team Providers Care Tire Builder Name Role Phone Hill Broderick MD Primary Care Provider [phone] Allergies Active Allergy Reactions Criticality Noted Date [...] 136 - 145 mmol/L 10/22/2023 6:03 AM [facility] Potassium 4.3 3.4 - 5.1 mmol/L 10/22/2023 6:03 AM [facility] Chloride 101 98 - 108 mmol/L 10/22/2023 6:03 AM [facility] Carbon Dioxide 29 20 - 31 mmol/L 10/22/2023 6:03 AM [facility] BUN (Urea Nitro) 26(H) 9 - 23 mg/dL 10/22/2023 6:03 AM [facility] Creatinine 1.15(H) 0.55 - 1.02 mg/dL 10/22/2023 6:03 AM [facility] Est GFR (CKD-EPI) 51.67(L) >60.00 mL/min/1. 73m2 10/22/2023 6:03 AM [facility] Comment:Calculation based on the Chronic Kidney Disease Epidemiology Collaboration (CKD-EPI) equation refit without adjustment for race. Glucose 105 74 - 106 mg/dL 10/22/2023 6:03 AM [facility] Calcium, Serum 9.8 8.7 - 10.4 mg/dL 10/22/2023 6:03 AM [facility] Anion Gap 8.0 0.0 - 15.0 mmol/L 10/22/2023 6:03 AM [facility] Blood 10/22/2023 5:12 AM CDT 10/22/2023 5:29 AM CDT Denise Rodriguez APRN, DATA EXAMINATION CLERK CHEMISTRY O [facility]DERABLE [facility] [address] [place] [address] from Last 3 Months or Most Recently Relevant to Health Maintenance Additional Health Concerns Infection Onset Date Last Indicated MRSA Comment:Added from external infection. Source: [employer] [facility]. 12/08/2015 Advance Directives For more information, please contact: [phone] * Full Code (Latest Code Status on [...] was code status determined? Patient Care Teams Tire Builder Relationship Specialty Start Date End Date Hill Broderick MD [address] [place] [address] PCP - General Family Medicine - 10/13/23
--- OUTSIDE RECORDS SUMMARY | 2024-02-29 12:09 | XMS_ITS | Clinical Summary ---
Author Organization [facility] Address [place], [place] [address] Care Team Providers Care Bindery Assistant Name Role Phone Elaine Sapp MD Unavailable [phone] Mary Lo NP Unavailable Hill Broderick MD Primary Care Provider [phone] [facility] Unavailable [phone] Allergies Active Allergy Reactions Criticality Noted Date Comments Buspirone Other - Describe In Comment Field 12/25/2021 Too sleepy Doxycycline Nausea And Vomiting 10/08/2016 Cephalexin Nausea Only 12/16/2017 Latex Itching 07/18/2014 Itching [facility] hands[facility], Natural Rubber Itching 01/10/2016 itching [...] once daily. 90 Tablet 02/22/20 24 Active durable medical equipment (DME)Indications:A rthritis of right knee,Leg weakness, bilateral,Morbid obesity (HC),Generalized weakness EZ-STAND 1 Each 02/28/20 24 Active cholecalciferol (VITAMIN D3) 50,000 unit capsuleIndications :Vitamin D deficiency Take one capsule twice a week 13 capsule 3 12/03/19 024 Discontinued(*P atient states no longer taking) miscellaneous medical supply miscIndications:St age IV pressure ulcer of sacral region (HC) As directed. 1 unit 10/11/19 21 024 Discontinued(*P atient states no longer taking) ascorbic acid, vitamin C, (Vitamin C) 1,000 mg tabletIndications: Frequent UTI Take 1 Tablet (1,000 mg) by mouth once daily. 90 Tablet 3 08/11/19 22 024 Discontinued(*P atient states no longer taking) miscellaneous medical supply miscIndications:St age IV pressure ulcer of sacral region (HC),Venous stasis ulcer of thigh with fat layer exposed, unspecified laterality, unspecified whether varicose veins present (HC) As directed. Abdominal dressings 30 Each 06/09/20 22 024 Discontinued(*P atient states no longer taking) disposable glovesIndications: Stage IV pressure ulcer of sacral region (HC),Venous stasis ulcer of thigh with fat layer exposed, unspecified laterality, unspecified whether varicose veins present (HC) FOR HOME USE WANTS TWO LARGE 200 Each 11 06/11/20 22 024 Discontinued(Re order (E-cancel not sent)) citalopram [...] Change daily and prn. 1 Bottle 11 10/15/19 024 Discontinued(*P atient states no longer taking) Diaper,Brief, Adult,Disposable (Per-Fit Underwear)Indicati ons:Urge incontinence of urine FOR HOME USE 96 Each 01/06/20 024 Discontinued(*A vailability/For mulary change/Cost of medication) lidocaine 4 % creamIndications:L eg ulcer, unspecified laterality, with necrosis of muscle (HC) Apply daily to affected areas prior to dressing change 45 g 02/12/20 024 Discontinued Alginate Dressing 4 X 4 bndgIndications:Ul [...] directed. Paper tape for dressings. 2 unit 04/07/20 024 Discontinued(*P atient states no longer [...] directed. Saline for dressing changes. 2 unit 04/07/20 024 Discontinued(*P atient states no longer [...] mouth every 12 hours. 60 Tablet 05/04/20 024 Discontinued(*M ed complete/Regime n complete/Level of [...] Sapp of Oncology. we will test in [place] so she does not have to go to [place]. Leukocytosis 01/22/2015 Leg weakness, bilateral 12/13/2014 Dysthymia [...] Encounters Date Type Department Care Team Description 02/28/2024 Telephone [facility] [address] [place] [address] Hill Broderick MD Referral (EZ STAND) 02/26/2024 Home Care Visit [facility] [address] [place] [phone] Darcie Norman, RN CARE COORDINATION 02/24/2024 Orders Only [facility] Scanner 1 scan: (1-Ord) [facility], XR KNEE LT 2V, 02/24/2024 02/24/2024 Travel 02/23/2024 Telephone [facility] [address] [place] [phone] Jennifer Morrison, knitting machine operator 02/22/2024 2:45 PM CDT Phone Office Visit [facility] [address] [place] [address] Hill Broderick MD Knee Pain/problem (Both knees, pain) 02/22/2024 Travel 02/21/2024 Telephone [facility] [address] [place] [address] Hill Broderick MD Refill Request (lidocaine 4 % cream) 02/21/2024 Refill [facility] [address] [place] [address] Hill Broderick MD Refill Request (Lidocaine) 02/18/2024 Telephone [facility] [address] [place] [address] Hill Broderick MD Pharmacist Medication Management (durable medical equipment (DME) /) 02/17/[address] [address] Hill Broderick MD Prior Authorization (LORazepam (ATIVAN) 0.5 mg tab Approved January 18, 2024 to February 16, 2025) 02/17/[address] [address] Hill Broderick MD DME Supply 02/17/[address] [address] Hill Broderick MD DME Supply; Refill Request (gloves) 02/16/[address] [address] Hill Broderick MD Prior Authorization (lorazepam) 02/16/[address] [address] Hill Broderick MD Refill Request 02/15/[address] [address] Hill Broderick MD Appointment (assist patient virtual/) 02/10/[address] [address] Hill Broderick MD Refill Request; Error-please disregard 02/10/[address] [address] Hill Broderick MD Refill Request (Diaper,Brief, Adult,Disposable (Per-Fit Underwear) /) 02/10/[address] [address] Hill Broderick MD Refill Request 02/10/[address] [address] Hill Broderick MD Refill Request (Multiple) from [...] 139.7 kg (308 lb) 05/30/2019 2:02 PM DIRECTOR BLOOD BANK Height 152.4 cm (5') 05/30/2019 2:02 PM DIRECTOR BLOOD BANK Body Mass Index 60.15 05/30/2019 2:02 PM DIRECTOR BLOOD BANK Plan of Treatment Upcoming Encounters Date Type Department Care Team (Late st Contact Info) Description 03/01/2024 11:00 AM CDT Appointment [facility] [address] [place] [address] Health Maintenance Due Date Last Done Comments [...] Tetanus booster 03/04/2021 03/04/2011 COVID-19 vaccine series ( season) 2024 09/15/2023, 07/22/2021, 02/10/2021, Additional history exists Influenza for age 65+ 02/13/2024 07/22/2021 , 04/01/2020, 05/30/2019, Additional history exists Depression screening for age 12+ 02/24/2024 02/23/2023, 02/19/2023, 09/14/2022, Additional history exists Lipids for age 45-75 07/22/2027 07/22/2022, 10/17/2013, 10/19/2012, Additional history exists Tdap Completed 03/04/2011 Hepatitis C screening for ag e 18-79 Completed 01/24/2019 Medical Devices Implanted Type Area Coordinator Of Genetic Services Device Identifier Shelf Expiration Date Model / Serial / Lot Tissue Matrix [id number] Apligraf Implanted:Qty: 3 on 12/18/2015 by Dimitri Ortega MD at [facility] [id number] / / [id number] Description:TISSUE MATRIX 44 [id number] APLIGRAF Procedures Procedure Name Priority Date/Time Associated Diagnosis Comments SCAN-RADIOLOGY REPORT 02/24/2024 12:00 AM CDT LC LIPID PANEL AND CHOL/HDL RATIO Routine 07/22/2022 3:28 PM DIRECTOR BLOOD BANK Screening for lipid disorders ANTI HCV Routine 01/24/2019 3:44 PM CDT Need for hepatitis C screening test from Last 3 Months or Most Recently Relevant to Health Maintenance Results * SCAN-RADIOLOGY REPORT (02/24/2024 12:00 AM CDT) Anatomical Region Laterality Modality Other Scanner OTHER * LC LIPID PANEL AND CHOL/HDL RATIO (07/22/2022 3:28 PM DIRECTOR BLOOD BANK) Cholesterol, Total 109 100 - 199 mg/dL 07/24/2022 12:08 PM DIRECTOR BLOOD BANK [facility] Triglycerides 108 0 - 149 mg/dL 07/24/2022 12:08 PM DIRECTOR BLOOD BANK [facility] HDL Cholesterol 49 >39 mg/dL 12:08 PM DIRECTOR BLOOD BANK [facility] VLDL Cholesterol Chandler 20 5 - 40 mg/dL 07/24/2022 12:08 PM [facility] LDL Chol Calc (NIH) 40 0 - 99 mg/dL 07/24/2022 12:08 PM DIRECTOR BLOOD BANK [facility] T. Chol/HDL Ratio 2.2 0.0 - 4.4 ratio 07/24/2022 12:08 PM DIRECTOR BLOOD BANK [facility] Comment: ?T. Chol/HDL Ratio ?Men ??Women ?1/2 Avg.Risk ??3.4 ?3.3 ?Avg.Risk ??5.0 ?4.4 ? 2X Avg.Risk ??9.6 ?7.1 ? 3X Avg.Risk 23.4 ?? 11.0 Blood BLOOD SPECIMEN / Unknown Butterfly / Unknown 07/22/2022 3:28 PM DIRECTOR BLOOD BANK 07/22/2022 3:32 PM DIRECTOR BLOOD BANK Narrative [facility] - 07/24/2022 12:08 PM DIRECTOR BLOOD BANK Performed at: ??01 - [facility] [address] [place], [place] ??[id number] Mother Repairer: Bari Smith MD, Phone: ??[phone] Hill Broderick MD SEND OUTS [facility] [address] [place] [id number] * ANTI HCV (01/24/2019 3:44 PM CDT) HEPATITIS C ANTIBODY Non-React tamica Non-React tamica 01/25/2019 1:48 AM CDT [facility] [employer] [facility] Comment:Antibodies to HCV no t detected; does not exclude the possibility of exposure to HCV. Blood BLOOD SPECIMEN / Unknown Butterfly / Unknown 01/24/2019 3:44 PM CDT 01/24/2019 3:44 PM CDT Blade Monsalve MD S[facility]S [facility] [address] [place] [address], from Last 3 Months or Most Recently Relevant to Health Maintenance Additional Health Concerns Infection Onset Date Last Indicated MRSA Comment:Order contact precautions. Nares surveillance cultures needed to clear patient. #1 #2 +MRSA RLE 12/05/15 12/08/2015 12/08/2015 Advance Directives Documents on File Type Date Recorded Patient Carton Waxing Machine Operator Expl anation Healthcare Directive 11/24/2022 023 * [...] Comments Code Status Discussion: Discussed Care Teams Bindery Assistant Relationship Specialty Start Date End Date Hill Broderick MD [address] [place] [address] PCP - General Family Practice 05/06/22 Elaine Sapp MD [address] [place] [address] Hematology 10/06/21 Mary Lo NP [address] [facility] [place] [address] Hematology 10/06/21 [facility] [address] [place] [address] 02/24/24
[2024-02-29] MEDS: MORPHINE 4 MG/ML INJ IM ×2 (12:13→14:35)
[2024-02-29] MEDS: KETOROLAC 30 MG/ML inj IM (12:13)
--- NOTE | 2024-02-29 12:34 | CRLHL7_ITS ---
For Patients: As a result of the Cures Act, medical imaging exams and procedure reports are released immediately into your electronic medical record. You may view this report before your referring provider. If you have questions, please contact your health care provider. Indication: Sudden lower leg pain under strain Comparison: None available. Technique: AP and lateral views left femur were obtained. Findings: There is no displaced fracture or dislocation. Severe degenerative changes of the tibiofemoral joint. Moderate superficial soft tissue prominence. Impression: Severe degenerative changes of the tibiofemoral joint with moderate superficial soft tissue swelling. No evidence of displaced fracture. Dictated by Deep Alonzo MD @ 02/29/2024 1:50:24 PM (Electronically Signed)
--- NOTE | 2024-02-29 13:49 | CRLHL7_ITS ---
For Patients: As a result of the Century Cures Act, medical imaging exams and procedure reports are released immediately into your electronic medical record. You may view this report before your referring provider. If you have questions, please contact your health care provider. INDICATION: Knee pain with concern for fracture COMPARISON: Same day radiographs of the left femur TECHNIQUE: CT of the left knee without intravenous contrast. FINDINGS: Challenging examination due to motion artifact and large patient body habitus causing pronounced quantum mottle artifact. Diffuse osseous demineralization. Severe degenerative change of the knee. No acute displaced fracture is identified. No substantial joint effusion. Diffuse soft tissue edema. IMPRESSION: Markedly artifactually degraded examination. No acute displaced fracture is identified. Severe degenerative change of the knee. Diffuse soft tissue edema. If there is a persistent clinical concern for fracture, MRI could be considered for more sensitive evaluation. Please note that all CT scans at this facility use dose modulation, iterative reconstruction, and/or weight-based dosing when appropriate to reduce radiation dose to as low as reasonably achievable. Dictated by Daniel Kaur MD @ 02/29/2024 3:44:35 PM (Electronically Signed)
[2024-02-29] MEDS: LORazepam 2 MG/ML inj 0.5 MG IM (14:35)
[2024-02-29 19:04] LABS: Lactate* 1.4 mmol/L (0.5-1.9)
[2024-02-29 19:08] LABS: Basophils Absolute Auto 0.03 K/uL (0.00-0.30); Basophils Percent Auto 0.5 % (0.0-3.0); Eosinophils Percent Auto 1.7 % (0.0-7.0); Hematocrit 32.7 % (33.0-51.0); Hemoglobin* 9.8 gm/dL (12.0-16.0); Immature Granulocytes Abs Auto 0.03 K/uL (0.00-0.30); Immature Granulocytes Pct Auto 0.5 %; Lymphocytes Percent Auto 17.2 % (20-44); Mean Corpuscular HGB Conc 30 gm/dL (32-36); Mean Corpuscular Hemoglobin 29 pg (26-34); Mean Corpuscular Volume 95 fL (80-100); Monocytes Percent Auto 9.6 % (0.0-11.0); Neutrophils Percent Auto 70.5 % (42.0-72.0); Platelet Count* 192 K/uL (140-440); RDW Coefficient of Variation % 13.2 % (11.5-15.5); Red Blood Count 3.43 m/uL (4.00-5.20); White Blood Count* 5.82 K/uL (4.50-11.00)
[2024-02-29 19:20] LABS: Slide Review Reflex No
[2024-02-29 19:35] LABS: Chloride* 107 mmol/L (96-114); Potassium* 4.1 mmol/L (3.6-5.1); Sodium* 139 mmol/L (135-149)
[2024-02-29 19:37] LABS: Creatinine* 1.1 mg/dL (0.5-1.5); Est. Creatinine Clearance* 41.68; Estimated Glomerular Filt Rate 54 ml/min
[2024-02-29 19:38] LABS: Anion Gap 5 mEq/L (7-15); Blood Urea Nitrogen* 22 mg/dL (7-30); Carbon Dioxide* 27 mmol/L (20-32); Glucose* 122 mg/dL (60-115)
[2024-02-29 19:39] LABS: Calcium* 8.6 mg/dL (8.4-10.6); Magnesium* 2.3 mg/dL (1.5-2.6)
[2024-02-29 19:41] LABS: C Reactive Protein* 3.8 mg/dL (0.5-1.0)
--- NOTE | 2024-02-29 20:28 | ED.NURSE ---
pt report given to jakub LOPEZ. Pt to [facility]U1. Pt educated on treating staff with respect and kindness, she states understanding at this time.
--- NOTE | 2024-02-29 21:46 | PM.IMHP1 ---
Hospitalist- H&P: HPI History of Present Illness Time Seen by Provider: 20:45 Date Seen: 02/29/24 Chief complaint: Back pain leg pain Narrative: Gracia Louise is a 68 year old female well known to our facility with a complex medical history significant for stage IV sacral ulcer and osteomyelitis, chronic lower extremity lymphedema and ulcers, morbid obesity, chronic pain, anxiety, hypertension, and medical noncompliance who has had several ER visits recently for weakness and came into the ER today for concerns of left leg pain. She has chronic left leg pain, but tells me that this like pain was new and of sudden onset. She reached down to pick something up while sitting in a chair and immediately felt pain in her left lateral knee and leg. She had several plain films and knee CT in the ER all of which are unremarkable for anything acute. Significant other, Alex, was with her today and both of them stated that they could not take her home because she could not get out of the bed and they have been trouble caring for her at home. She is agreeable to go to rehab as long as it is paid for, but tells me that she will not agree to a ?retirement? because she does not want to give up her house to pay for it. At the end of September 2023 she was discharged to [facility]. She was there for just over 90 days and then she checked herself out. She tells me that she had been doing really well with rehab and had made a lot of strides. According to Gracia and Alex, the wound on her coccyx had previously healed up while at [facility]. She told me that she checked herself out of rehab because when she reached the 90 days, Medicare would no longer cover rehab and she did not want to have to pay for it. In the ER note from 02/27/2024, Dr. James notes that the sacral ulcer that had healed up was now open again in the hole was getting bigger. She remains chronically incontinent of urine and stool because she refuses to get up to use the bathroom and had previously had a urinary catheter in placed in September to protect her perineum. Review of Systems Status of ROS: Reports: 10 or more systems reviewed and unremarkable except as noted in History and below [facility] Medical History (Updated 03/01/24 @ 00:59 by Rocio Jorge MD) Seborrheic dermatitis ?L21.9 - Seborrheic dermatitis, unspecified (ICD-10) At risk for venous thromboembolism (VTE) ?Z91.89 - Other specified personal risk factors, not elsewhere classified (ICD-10) Anxiety ?F41.9 - Anxiety disorder, unspecified (ICD-10) Cognitive impairment ?R41.89 - Other symptoms and signs involving cognitive functions and awareness (ICD-10) Anemia ?D64.9 - Anemia, unspecified (ICD-10) GI bleeding ?K92.2 - Gastrointestinal hemorrhage, unspecified (ICD-10) Ulcer of sacral region, stage 4 ?L98.429 - Non-pressure chronic ulcer of back with unspecified severity (ICD-10) Stage IV pressure ulcer of sacral region ?L89.154 - Pressure ulcer of sacral region, stage 4 (ICD-10) Chronic pain ?G89.29 - Other chronic pain (ICD-10) Recurrent depression ?F33.9 - Major depressive disorder, recurrent, unspecified (ICD-10) Panic attacks ?F41.0 - Panic disorder [episodic paroxysmal anxiety] (ICD-10) Insomnia ?G47.00 - Insomnia, unspecified (ICD-10) Restless legs syndrome ?G25.81 - Restless legs syndrome (ICD-10) Urge incontinence of urine ?N39.41 - Urge incontinence (ICD-10) Controlled substance agreement signed ?Z79.899 - Other half-way (current) drug therapy (ICD-10) Vitamin D deficiency ?E55.9 - Vitamin D deficiency, unspecified (ICD-10) MRSA (methicillin resistant staph aureus) culture positive (~12/05/15) ?Z22.322 - Carrier or suspected carrier of Methicillin resistant Staphylococcus aureus (ICD-10) Left ureteral stone (~12/11/15) ?N20.1 - Calculus of ureter (ICD-10) CKD (chronic kidney disease), stage III ?N18.30 - Chronic kidney disease, stage 3 unspecified (ICD-10) Acute osteomyelitis of coccyx (~08/2015) ?M46.28 - Osteomyelitis of vertebra, sacral and sacrococcygeal region (ICD-10) Ulcers of both lower extremities with fat layer exposed ?L97.912 - Non-pressure chronic ulcer of unspecified part of right lower leg with fat layer exposed (ICD-10) ?L97.922 - Non-pressure chronic ulcer of unspecified part of left lower leg with fat layer exposed (ICD-10) Iron deficiency 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 ?D50.1 - Sideropenic dysphagia (ICD-10) Acute kidney injury (~01/2015) ?N17.9 - Acute kidney failure, unspecified (ICD-10) Dysthymia ?F34.1 - Dysthymic disorder (ICD-10) Bilateral leg weakness ?R29.898 - Other symptoms and signs involving the musculoskeletal system (ICD-10) Chronic acquired lymphedema ?I89.0 - Lymphedema, not elsewhere classified (ICD-10) Chronic, continuous use of opioids ?F11.90 - Opioid use, unspecified, uncomplicated (ICD-10) Venous stasis ulcer of thigh with fat layer exposed ?I83.001 - Varicose veins of unspecified lower extremity with ulcer of thigh (ICD-10) ?L97.102 - Non-pressure chronic ulcer of unspecified thigh with fat layer exposed (ICD-10) Elevated TSH ?R79.89 - Other specified abnormal findings of blood chemistry (ICD-10) DJD (degenerative joint disease) of knee ?M17.9 - Osteoarthritis of knee, unspecified (ICD-10) Morbid obesity ?E66.01 - Morbid (severe) obesity due to excess calories (ICD-10) Essential hypertension ?I10 - Essential (primary) hypertension (ICD-10) Surgical History S/P debridement ?Z98.890 - Other specified postprocedural states (ICD-10) S/P ureteral stent placement ?Z96.0 - Presence of urogenital implants (ICD-10) Family History Brother Diabetes Cardiovascular disease Father Cardiovascular disease High blood pressure Sister High cholesterol High blood pressure Mother Dementia Social History (Updated 02/29/24 @ 23:58 by Rocio Jorge MD) Narrative: Lives independently, partner Alex often with her; he is here with her today. 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 Smoked an average of 0.3 packs per day for 2 years, quit in 1970. Denies alcohol use. Denies recreational drug use. Wishes to be full code. Sons Bhargav or Bill would be primary medical decision maker if needed. What is your current living situation?: I presently have a place to live Problems where you live: no known problems Problems where you live details: None In the past 12 months, utilities in danger of being shut off: no In past 12 months, lack of transportation kept you from medical appts, meetings, work, or getting things needed for daily living: no In the past 12 mos, have been you worried that your food would run out before you had money to buy more?: never true In the past 12 mos, the food you bought just didn't last and you didn't have money to buy more?: never true Highest level of school completed/degree received: 11th grade Smoking Status: Never smoker Do you use any of these nicotine containing products: None Second hand tobacco smoke exposure: No How often do you have a drink containing alcohol: never How often do you have six or more drinks on one occasion: Never AUDIT-C Alcohol total score: 0 Non-prescribed substance use: denies use Caffeine: No How often does anyone, including family, friends and others, physically hurt you: never How often does anyone, including family, friends and others, insult or talk down to you: never How often does anyone, including family, friends and others, threaten you with harm: never How often does anyone, including family, friends and others, scream or curse at you: never service: No Meds Home Medications and Allergies Home Medications ?Medication ?Instructions ?Recorded ?Confirmed ?Type acetaminophen 500 mg capsule 1,000 mg PO TID PRN 03/28/23 10/04/23 History cholecalciferol (vitamin D3) 1,250 1,250 mcg PO 2XW 03/28/23 10/04/23 History mcg (50,000 unit) capsule (Weekly-D) ferrous sulfate 325 mg (65 mg 325 mg PO DAILY 03/28/23 10/04/23 History iron) tablet,delayed release furosemide 20 mg tablet 20 mg PO DAILY 03/28/23 10/04/23 History ondansetron 4 mg disintegrating 4 mg PO Q8H PRN 03/28/23 10/04/23 History tablet potassium chloride 10 mEq 10 meq PO DAILY 03/28/23 10/04/23 History tablet,extended release Lactobacillus acidophilus 0.5 mg 0.5 mg PO DAILY 10/04/23 10/04/23 History (100 million cell) tablet collagenase clostridium histo. 250 1 applic topical DAILY 10/04/23 10/04/23 History unit/gram topical ointment (Santyl) diclofenac sodium 1 % topical gel 2 g topical BID 10/04/23 10/04/23 History duloxetine 60 mg capsule,delayed 60 mg PO DAILY 10/04/23 10/04/23 History release hydrocortisone 1 % topical cream 1 applic topical BID 10/04/23 10/04/23 History zinc oxide 1 applic topical BID 10/04/23 10/04/23 History Allergies Allergy/AdvReac Type Severity Reaction Status Date / Time amoxicillin Allergy Unknown Verified 02/29/24 11:44 buspirone [From BuSpar] Allergy Unknown Verified 02/29/24 11:44 cephalexin [From Keflex] Allergy Unknown Verified 02/29/24 11:44 doxycycline Allergy Unknown Verified 02/29/24 11:44 latex Allergy Unknown Verified 02/29/24 11:44 lisinopril Allergy Unknown Verified 02/29/24 11:44 Penicillins Allergy Unknown Verified 02/29/24 11:44 Sulfa (Sulfonamide Allergy Unknown Verified 02/29/24 11:44 Antibiotics) Exam Narrative: Exam Narrative: General: Nontoxic appearing. Morbidly obese. Smells strongly of urine. Anxious, yelling at the nurses as they move her into bed, then asking them to move her leg, then screaming for them to stop, then repeating this cycle. Awake alert oriented x3. HEENT: Normocephalic atraumatic, pupils equally round and reactive to light and accommodation. Oropharynx clear. Mucous membranes are moist. Cardiovascular: Regular rate and rhythm. No murmurs, gallops, or rubs. Chest: No increased work of breathing. Clear to auscultation bilaterally. No crackles or wheezes. Abdomen: Bowel sounds present. Soft, nondistended, nontender. No hepatosplenomegaly or masses. Back: Nontender to palpation. 4cm oblong gluteal clef ulcer over the sacrum. Blackened edges with cavernous appearance. I can see and palpate bone. No pus. No drainage. No surrounding erythema or induration. I obtained a culture from 1 cm into the ulcer. Extremities: Massive lymphedema without weeping both lower extremities. Skin: Soiled washcloth from home between her upper thighs. This was removed. Skin underneath is macerated. No jaundice, no pallor, mild erythema and yeasty smell noted in the skin folds throughout her abdomen and legs. Neuro: Grossly intact. No focal deficits. Const: Vital Signs, click to edit/add: Vital Signs - 24 hr 02/29/24 11:40 02/29/24 11:46 02/29/24 13:45 Temperature 97.2 F L Pulse Rate 83 Pulse Rate [Right Pulse Oximeter] 85 Respiratory Rate 22 Blood Pressure Blood Pressure [Ri ght Upper Arm] 125/59 L Pulse Oximetry 93 91 Oxygen Delivery Me thod Room Air Oxygen Flow Rate 02/29/24 14:40 02/29/24 14:44 02/29/24 14:45 Temperature Pulse Rate 84 80 80 Pulse Rate [Right Pulse Oximeter] Respiratory Rate Blood Pressure 134/57 L Blood Pressure [Ri ght Upper Arm] Pulse Oximetry 89 91 89 Oxygen Delivery Me thod Oxygen Flow Rate 02/29/24 15:00 02/29/24 15:02 02/29/24 15:03 Temperature Pulse Rate 83 78 82 Pulse Rate [Right Pulse Oximeter] Respiratory Rate Blood Pressure 114/65 Blood Pressure [Ri ght Upper Arm] Pulse Oximetry 94 98 Oxygen Delivery Me thod Oxygen Flow Rate 02/29/24 15:20 02/29/24 15:28 02/29/24 15:30 Temperature Pulse Rate 86 85 Pulse Rate [Right Pulse Oximeter] Respiratory Rate 18 Blood Pressure Blood Pressure [Ri ght Upper Arm] Pulse Oximetry 89 90 Oxygen Delivery Me thod Oxygen Flow Rate 02/29/24 15:32 02/29/24 15:45 02/29/24 16:00 Temperature Pulse Rate 78 76 79 Pulse Rate [Right Pulse Oximeter] Respiratory Rate Blood Pressure 131/64 Blood Pressure [Ri ght Upper Arm] Pulse Oximetry 97 100 100 Oxygen Delivery Me thod Nasal Cannula Nasal Cannula Nasal Cannula Oxygen Flow Rate 2 2 2 02/29/24 16:02 02/29/24 16:15 02/29/24 16:30 Temperature Pulse Rate 77 82 81 Pulse Rate [Right Pulse Oximeter] Respiratory Rate Blood Pressure 130/56 L Blood Pressure [Ri ght Upper Arm] Pulse Oximetry 98 99 96 Oxygen Delivery Me thod Nasal Cannula Nasal Cannula Nasal Cannula Oxygen Flow Rate 2 2 1 02/29/24 16:32 02/29/24 16:45 02/29/24 17:00 Temperature Pulse Rate 74 76 82 Pulse Rate [Right Pulse Oximeter] Respiratory Rate Blood Pressure 132/65 Blood Pressure [Ri ght Upper Arm] Pulse Oximetry 90 90 96 Oxygen Delivery Me thod Nasal Cannula Nasal Cannula Oxygen Flow Rate 1 1 02/29/24 17:02 02/29/24 17:17 02/29/24 17:30 Temperature Pulse Rate 84 87 83 Pulse Rate [Right Pulse Oximeter] Respiratory Rate Blood Pressure 117/77 Blood Pressure [Ri ght Upper Arm] Pulse Oximetry 96 97 94 Oxygen Delivery Me thod Oxygen Flow Rate 02/29/24 17:32 02/29/24 17:45 02/29/24 18:00 Temperature Pulse Rate 82 86 94 Pulse Rate [Right Pulse Oximeter] Respiratory Rate Blood Pressure 122/56 L Blood Pressure [Ri ght Upper Arm] Pulse Oximetry 95 100 96 Oxygen Delivery Me thod Oxygen Flow Rate 02/29/24 18:03 02/29/24 18:15 02/29/24 18:30 Temperature Pulse Rate 104 H 94 97 Pulse Rate [Right Pulse Oximeter] Respiratory Rate Blood Pressure 119/54 L Blood Pressure [Ri ght Upper Arm] Pulse Oximetry 83 L 88 85 L Oxygen Delivery Me thod Oxygen Flow Rate 02/29/24 19:02 02/29/24 19:32 02/29/24 19:59 Temperature Pulse Rate 93 Pulse Rate [Right Pulse Oximeter] Respiratory Rate Blood Pressure 135/70 130/71 Blood Pressure [Ri ght Upper Arm] Pulse Oximetry 88 Oxygen Delivery Me thod Oxygen Flow Rate 02/29/24 20:00 02/29/24 20:02 Temperature Pulse Rate 94 90 Pulse Rate [Right Pulse Oximeter] Respiratory Rate Blood Pressure 137/64 Blood Pressure [Ri ght Upper Arm] Pulse Oximetry 89 Oxygen Delivery Me thod Oxygen Flow Rate Hospitalist - H&P: Result Labs Labs: Short CBC 02/29/24 Range/Units 19:01 WBC 5.82 (4.50-11.00) K/uL Hgb 9.8 L (12.0-16.0) gm/dL Hct 32.7 L (33.0-51.0) % Plt Count 192 (140-440) K/uL BMP 02/29/24 19:01 Sodium 139 Potassium 4.1 Chloride 107 Carbon Dioxide 27 BUN 22 Creatinine 1.1 Glucose 122 H Calcium 8.6 Ordering Physician: Camacho Vasquez M.D. Date of Service: 02/29/24 Procedure(s): XR tibia fibula LT 2V Accession Number(s): [id number] cc: Hill Broderick M.D.; Camacho Vasquez M.D.~ For Patients: As a result of the Cures Act, medical imaging exams and procedure reports are released immediately into your electronic medical record. You may view this report before your referring provider. If you have questions, please contact your health care provider. Indication: Sudden left lower leg pain under strain Comparison: None available. Technique: AP and lateral views left tibia and fibula were obtained. Findings: There is no displaced fracture or dislocation. There is severe tricompartmental degenerative change within the tibiofemoral joint. Additional moderate degenerative changes of the tibiotalar joint are appreciated. There is moderate to severe superficial soft tissue prominence. Impression: Moderate to severe superficial soft tissue prominence. No evidence of displaced fracture. Severe degenerative changes of the knee and visualized ankle. Dictated by Deep Alonzo MD @ 02/29/2024 1:45:16 PM (Electronically Signed) Ordering Physician: Camacho Vasquez M.D. Date of Service: 02/29/24 Procedure(s): XR femur LT 2V Accession Number(s): [id number] cc: Hill Broderick M.D.; Camacho Vasquez M.D.~ For Patients: As a result of the Cures Act, medical imaging exams and procedure reports are released immediately into your electronic medical record. You may view this report before your referring provider. If you have questions, please contact your health care provider. Indication: Sudden lower leg pain under strain Comparison: None available. Technique: AP and lateral views left femur were obtained. Findings: There is no displaced fracture or dislocation. Severe degenerative changes of the tibiofemoral joint. Moderate superficial soft tissue prominence. Impression: Severe degenerative changes of the tibiofemoral joint with moderate superficial soft tissue swelling. No evidence of displaced fracture. Dictated by Deep Alonzo MD @ 02/29/2024 1:50:24 PM (Electronically Signed) Ordering Physician: Camacho Vasquez M.D. Date of Service: 02/29/24 Procedure(s): CT knee LT wo con Accession Number(s): [id number] cc: Hill Broderick M.D.; Camacho Vasquez M.D.~ For Patients: As a result of the Cures Act, medical imaging exams and procedure reports are released immediately into your electronic medical record. You may view this report before your referring provider. If you have questions, please contact your health care provider. INDICATION: Knee pain with concern for fracture COMPARISON: Same day radiographs of the left femur TECHNIQUE: CT of the left knee without intravenous contrast. FINDINGS: Challenging examination due to motion artifact and large patient body habitus causing pronounced quantum mottle artifact. Diffuse osseous demineralization. Severe degenerative change of the knee. No acute displaced fracture is identified. No substantial joint effusion. Diffuse soft tissue edema. IMPRESSION: Markedly artifactually degraded examination. No acute displaced fracture is identified. Severe degenerative change of the knee. Diffuse soft tissue edema. If there is a persistent clinical concern for fracture, MRI could be considered for more sensitive evaluation. Please note that all CT scans at this facility use dose modulation, iterative reconstruction, and/or weight-based dosing when appropriate to reduce radiation dose to as low as reasonably achievable. Dictated by Daniel Kaur MD @ 02/29/2024 3:44:35 PM (Electronically Signed) Assessment and Plan Assessment and plan (1) Bilateral leg weakness: Problem comment: Unable to stand and transfer due to pain and weakness. Patient states she wants and EZ stand at home. Therapy staff have previously indicated that she could not demonstrate safe use of EZ stand. Will have PT and OT evaluate and treat. Will need SNF. Status: Chronic (2) Ulcer of sacral region, stage 4: Problem comment: - hospitalized for this in 06/05, improved 09/2023, patient and partner reported prior resolution. Now stage 4 again 02/29/24. - Consult general surgery and/or wound care. This does not appear infected, but may need to consider CT imaging as I can palpate bone. Patient has previously refused CT scans and is refusing all interventions this evening because she is too tired. Status: Acute (3) Incontinence associated dermatitis: Problem comment: - Attempted to place covarrubias this evening to protect perineum, however patient refused to cooperate and attempt was unsuccessful. Status: Chronic (4) Medically noncompliant: Problem comment: - left SNF AMA early this year and again this summer, each time returning to poor physical baseline, - history of refusing recommended medications, procedures, treatments - Willing to consider rehab, but I am not sure if that is an option. I think she need long-term SNF. Status: Acute (5) Chronic pain: Problem comment: Per [facility] records: Chronic pain due leg ulcers since 2018. She thinks she has been on pain medications since 2019 for the leg ulcers. Previously on morphine then switched to buprenorphine during recent retirement stay. In September she declinced buprenorphine intermittently in the hospital. Eventually buprenorphine discontinued. Will avoid NSAIDs due to h/o GI bleeding and chronic anemia. Trial of lidocaine patch, ice, heat. Work with PT/OT. Status: Acute (6) Chronic acquired lymphedema: Problem comment: Chronic bilateral lower extremity lymphedema. Compression and elevation if she will tolerated. Status: Chronic (7) Morbid obesity: Problem comment: - chronic with BMI 58 - weight on discharge in 06/05 was 111.7kg; 137 on admission 10/02/23; 131.5 kg today, 02/29/2024. - unclear what her weight was upon leaving [facility] - Nutrition consult. 1500 calorie diet Status: Chronic (8) Debility: Problem comment: - acute on chronic, worsening weakness. This is becoming a pattern of worsening weakness upon returning home after leaving AMA from rehab. I have ordered PT and OT. She will again need rehab and would likely benefit from more permanent placement at a care home facility to prevent the cycle of returning home at which she is likely more sedentary and does not get turned which likely leads to the sacral ulcer opening up again. Status: Acute (9) Anxiety: Problem comment: Has a longstanding history of significant anxiety that interferes with her ability to cooperate with plan of care. Previously had been on Ativan but she is a high risk for complications from this. Continue duloxetine. Status: Chronic (10) Left knee pain: Problem comment: Longstanding fairly severe osteoarthritis of the knees. Left knee injury in September has made her left knee more painful. Buprenorphine discontinued October 10 because of concerns that it is causing sedation and not providing sufficient pain relief. She had a trial of Naprosyn for pain, but I believe this was discontinued due to history of gastrointestinal bleeding and chronic anemia. I note that her hemoglobin is 9.8 today. She has been using diclofenac topical cream. I will start a lidocaine patch. Also use ice and heat for pain. Status: Acute Plan 68-year-old female with a complex medical history was admitted for inability to care for herself at home and her partner is unable to care for her either due to her inability to get out of bed and incontinence of urine and stool. She recognizes the need for care home care however does not want to have to pay for it in the setting of a care home facility. She is hoping to have another rehab stay, but I did talk with her about how this may not be possible and she may have to pay for a care home facility. I am concerned about her insight and judgment. While she tells me that she does better in a care home facility and sees improvement, she is unwilling to stay in 1 and pay for it. As a result she leaves A, which she has now done several times from several different facilities, and her health starts to spiral downward again and she has come in yet again to the hospital in so wheeled clothing with a stage IV sacral ulcer that was reportedly previously healed, recurrent lower extremity weakness to the point where she is bed ridden, and inability to care for herself. The sacral ulcer does not look infected. I did obtain a wound culture, but I am not sure what the utility of this will be since I do not think she needs antibiotics at this time. I do think she needs a surgical consult and or wound consult, which can be obtained in the morning. Total Time Spent Total Time Spent: Today I spent 80 minutes admitting this patient. Greater than 50% included reviewing records and previous hospitalizations and ER visits, reviewing labs and imaging, examining the patient, and obtaining wound culture. Examining the patient was challenging due to her body habitus and required help of several nurses to turn her.
--- NOTE | 2024-02-29 23:10 | PC.NURSE ---
Pt arrived on unit at approximately 2029. Pt here for pain in lower left leg that started this morning. Pt stated that they are unable to move their leg and rates pain at 10/10 when touched or moved. Pitting edema in BLE. Redness in creases of BLE. Redness, excoriation, and yeast noted under left breast and abdominal folds. Stage IV ulcer in sacrum. PT bedbound. PT VSS. A & O.
[2024-03-01] VITALS (7 sets, daily range): BP systolic 123–146; BP diastolic 54–67; PULSE 91–111; RESP 16–26; TEMP 35.9–36.4; O2SAT 55–95; BMI 49.8
[2024-03-01] MEDS: LIDOCAINE 5% PATCH 1 PATCH TRANSDERMA (06:40)
--- NOTE | 2024-03-01 07:36 | PC.NURSE ---
END OF SHIFT NOTE: PT ASLEEP FOR INITIAL ASSESSMENT; ASSESSMENT DEFERRED UNTIL PT WOKE @0500. PT REMAINED IN BED THROUGHOUT SHIFT. VSS ON RA; AFEBRILE.?A&O. DENIES CP, SOB, N/V. ERYTHEMA TO PT SKIN FOLDS. BLE EDEMA L > R.? PRESSURE ULCER TO COCCYX DYER HELPER D/T MEPILEX NOT STICKING TO PT?S SKIN. LIDOCAINE PATCH PLACED ON PT?S LEFT KNEE. PT RATES LEFT KNEE PAIN 01/21, LOWER CHRONIC BACK PAIN 12/21. PT WAS READ MED/SURG EXPECTATIONS BY THIS NURSE. CALL LIGHT WITHIN PT?S REACH. ?
[2024-03-01] MEDS: OXYCODONE 5 MG TABLET PO (10:56)
--- NOTE | 2024-03-01 11:19 | PC.SOCIAL ---
Social work: has completed the Medical Statement in Support of Guardianship/Conservatorship. SW called [facility] Vulnerable Adult worker, Omayra Gonzalez [phone], and secure emailed this form and MD note to her for follow up. weld lay out worker to follow up as needed.
[2024-03-01] MEDS: LIDOCAINE 5% PATCH 2 PATCH TRANSDERMA (11:28)
--- NOTE | 2024-03-01 11:53 | PM.IMPN1 ---
Progress Note: A&P Assessment and plan (1) Bilateral leg weakness: Problem details: Unable to stand and transfer due to pain and weakness. Patient states she wants and EZ stand at home. Therapy staff have previously indicated that she could not demonstrate safe use of EZ stand. Will have PT and OT evaluate and treat. Will need SNF. Status: Chronic (2) Ulcer of sacral region, stage 4: Problem details: - hospitalized for this in 06/05, improved 09/2023, patient and partner reported prior resolution. Now stage 4 again 02/29/24. - Consult general surgery and/or wound care. This does not appear infected, but may need to consider CT imaging as I can palpate bone. Patient has previously refused CT scans and is refusing all interventions this evening because she is too tired. Status: Acute (3) Incontinence associated dermatitis: Problem details: - Attempted to place covarrubias this evening to protect perineum, however patient refused to cooperate and attempt was unsuccessful. Status: Chronic (4) Medically noncompliant: Problem details: She has had 3 discharge is against medical advice from nursing home facilities since October 12 2023. - history of refusing recommended medications, procedures, treatments - Willing to consider rehab, but I am not sure if that is an option. I think she need long-term SNF. Status: Acute (5) Chronic pain: Problem details: Previously on opioids than buprenorphine. Most recently just on Tylenol at home. Poor candidate for opioid therapy. Will try low-dose NSAIDs and reconsider buprenorphine Status: Acute (6) Chronic acquired lymphedema: Problem details: Chronic bilateral lower extremity lymphedema. Compression and elevation if she will tolerated. Monitor left leg for cellulitis Status: Chronic (7) Morbid obesity: Problem details: - chronic with BMI 58 - weight on discharge in 06/05 was 111.7kg; 137 on admission 10/02/23; 131.5 kg today, 02/29/2024. - unclear what her weight was upon leaving [facility] - Nutrition consult. 1500 calorie diet Status: Chronic (8) Debility: Problem details: - acute on chronic, worsening weakness. This is becoming a pattern of worsening weakness upon returning home after leaving AMA from rehab. I have ordered PT and OT. She will again need rehab and would likely benefit from more permanent placement at a nursing home facility to prevent the cycle of returning home at which she is likely more sedentary and does not get turned which likely leads to the sacral ulcer opening up again. Status: Acute (9) Anxiety: Problem details: Has a longstanding history of significant anxiety that interferes with her ability to cooperate with plan of care. Previously had been on Ativan but she is a high risk for complications from this. Continue duloxetine. Status: Chronic (10) Left knee pain: Problem details: Optimally she would get knee replacement but she has a very poor surgical candidate and high risk for complications and infection and poor recovery. Status: Acute (11) Discharge planning issues: Problem details: Needs intermediate. Work with social sciences instructor and the [facility] to make a disposition plan. May need guardianship from the [facility]. Status: Acute Plan Continue in hospital pending ongoing evaluation and management of medical problems and working with social sciences instructor on disposition plan Time Spent With Patient Total time spent: 60 minutes in coordination of care and discussing with patient other providers ongoing evaluation management Subjective Date Seen: 03/01/24 Interval history: Gracia Louise is a 68-year-old female with stage IV sacral ulcer, chronic back and left knee pain and morbid obesity who is admitted through the emergency department with severe left knee pain and inability to care for herself. She was seen in our emergency department on February 24, February 26 and yesterday February 28 for her back pain and knee pain. Yesterday she was unable to stand to transfer and was admitted to the hospital for plan of care. Gracia has been struggling to live independently at home over the last couple weeks. Prior to that she has been in a hospital or intermediate since 05/14/2023. May 14 to 06/02/2023 she was hospitalized here for COVID infection as well as a groin cellulitis and UTI. She was found to be profoundly weak and unable to care for herself so she was sent to a nursing home facility in [place] until 10/01/2023. She discharged herself from there against medical advice and came to our emergency room 10/02/2023. Again seen to be unable to care for herself so she was hospitalized here until 10/12/2023. She was discharged to a nursing home facility in [facility]. She discharged herself from that nursing facility and was admitted to [facility] on Oct 13 2023. She was hospitalized there through 10/22/2023 and discharged to another nursing home facility. She remained there until about 2 weeks ago by her report. She discharged herself against medical advice to home. Patient has done well when she is state in a intermediate for months getting appropriate repositioning and skin care and wound care and therapy. She has not however gotten to the point where the therapists and medical providers in the intermediate felt she was going to be successful living independently. At home she has been struggling. She can no longer transfer herself from bed to chair. She reports the primary problem is is that her back in her low left leg hurt too much. She can not roll over in bed for wound care and to take pressure off of her decubitus ulcer. She cannot take care of her skin breakdown and skin infections in her skin folds. She contacted her primary care doctor to arrange for an EZ stand the day prior to admission. She has been in our emergency department 3 times in the last 5 days because of her inability to manage her pain and mobility and self cares at home. She has not had a recent illness with cough, fever, sore throat, chest pain, unusual dyspnea, abdominal pain, nausea, vomiting, diarrhea. She is incontinent of urine possibly because she is immobile. Radiographs of her left knee including plain films and CT show fairly severe degenerative changes. Exam Narrative: Exam Narrative: She is alert and reports being quite uncomfortable in bed. Head is normal. Oropharynx with small airway. Respirations are clear to auscultation. Cardiovascular: S1, S2, regular rate and rhythm. Abdomen: Bowel sounds are present. Abdomen is soft without tenderness. Skin folds under her breasts and abdominal pannus show mild areas of erythema and skin erosions. Bilateral lower extremities with prominent adipose tissue and lymphedema. She has more chronic lymphedema changes on her left lower extremity with more erythema and cobblestone appearance to the skin. In the skin fold behind her knee she has some erythema and erosions. Right lower extremity with minimal erythema. She does not tolerate me palpating her left knee or assessing range of motion or stability. No other obvious signs of trauma. Attempts to examine her buttocks were unsuccessful secondary to pain and difficulties with repositioning. Will make a repeat attempt again later. Const: Vital Signs, click to edit/add: Vital Signs - 24 hr 02/29/24 13:45 02/29/24 14:40 02/29/24 14:44 Temperature Pulse Rate 83 84 80 Pulse Rate [Pulse Oximeter] Respiratory Rate Blood Pressure 134/57 L Blood Pressure [Le ft Arm] Blood Pressure [Ri ght forearm] Pulse Oximetry 91 89 91 Oxygen Delivery Me thod Oxygen Flow Rate 02/29/24 14:45 02/29/24 15:00 02/29/24 15:02 Temperature Pulse Rate 80 83 78 Pulse Rate [Pulse Oximeter] Respiratory Rate Blood Pressure 114/65 Blood Pressure [Le ft Arm] Blood Pressure [Ri ght forearm] Pulse Oximetry 89 94 Oxygen Delivery Me thod Oxygen Flow Rate 02/29/24 15:03 02/29/24 15:20 02/29/24 15:28 Temperature Pulse Rate 82 86 Pulse Rate [Pulse Oximeter] Respiratory Rate 18 Blood Pressure Blood Pressure [Le ft Arm] Blood Pressure [Ri ght forearm] Pulse Oximetry 98 89 Oxygen Delivery Me thod Oxygen Flow Rate 02/29/24 15:30 02/29/24 15:32 02/29/24 15:45 Temperature Pulse Rate 85 78 76 Pulse Rate [Pulse Oximeter] Respiratory Rate Blood Pressure 131/64 Blood Pressure [Le ft Arm] Blood Pressure [Ri ght forearm] Pulse Oximetry 90 97 100 Oxygen Delivery Me thod Nasal Cannula Nasal Cannula Oxygen Flow Rate 2 2 02/29/24 16:00 02/29/24 16:02 02/29/24 16:15 Temperature Pulse Rate 79 77 82 Pulse Rate [Pulse Oximeter] Respiratory Rate Blood Pressure 130/56 L Blood Pressure [Le ft Arm] Blood Pressure [Ri ght forearm] Pulse Oximetry 100 98 99 Oxygen Delivery Me thod Nasal Cannula Nasal Cannula Nasal Cannula Oxygen Flow Rate 2 2 2 02/29/24 16:30 02/29/24 16:32 02/29/24 16:45 Temperature Pulse Rate 81 74 76 Pulse Rate [Pulse Oximeter] Respiratory Rate Blood Pressure 132/65 Blood Pressure [Le ft Arm] Blood Pressure [Ri ght forearm] Pulse Oximetry 96 90 90 Oxygen Delivery Me thod Nasal Cannula Nasal Cannula Nasal Cannula Oxygen Flow Rate 1 1 1 02/29/24 17:00 02/29/24 17:02 02/29/24 17:17 Temperature Pulse Rate 82 84 87 Pulse Rate [Pulse Oximeter] Respiratory Rate Blood Pressure 117/77 Blood Pressure [Le ft Arm] Blood Pressure [Ri ght forearm] Pulse Oximetry 96 96 97 Oxygen Delivery Me thod Oxygen Flow Rate 02/29/24 17:30 02/29/24 17:32 02/29/24 17:45 Temperature Pulse Rate 83 82 86 Pulse Rate [Pulse Oximeter] Respiratory Rate Blood Pressure 122/56 L Blood Pressure [Le ft Arm] Blood Pressure [Ri ght forearm] Pulse Oximetry 94 95 100 Oxygen Delivery Me thod Oxygen Flow Rate 02/29/24 18:00 02/29/24 18:03 02/29/24 18:15 Temperature Pulse Rate 94 104 H 94 Pulse Rate [Pulse Oximeter] Respiratory Rate Blood Pressure 119/54 L Blood Pressure [Le ft Arm] Blood Pressure [Ri ght forearm] Pulse Oximetry 96 83 L 88 Oxygen Delivery Me thod Oxygen Flow Rate 02/29/24 18:30 02/29/24 19:02 02/29/24 19:32 Temperature Pulse Rate 97 Pulse Rate [Pulse Oximeter] Respiratory Rate Blood Pressure 135/70 130/71 Blood Pressure [Le ft Arm] Blood Pressure [Ri ght forearm] Pulse Oximetry 85 L Oxygen Delivery Me thod Oxygen Flow Rate 02/29/24 19:59 02/29/24 20:00 02/29/24 20:02 Temperature Pulse Rate 93 94 90 Pulse Rate [Pulse Oximeter] Respiratory Rate Blood Pressure 137/64 Blood Pressure [Le ft Arm] Blood Pressure [Ri ght forearm] Pulse Oximetry 88 89 Oxygen Delivery Me thod Oxygen Flow Rate 02/29/24 20:52 03/01/24 00:50 03/01/24 03:10 Temperature 97.0 F L Pulse Rate Pulse Rate [Pulse Oximeter] 89 Respiratory Rate 18 18 18 Blood Pressure Blood Pressure [Le ft Arm] 115/55 L Blood Pressure [Ri ght forearm] Pulse Oximetry 92 Oxygen Delivery Me thod Room Air Oxygen Flow Rate 03/01/24 05:30 03/01/24 05:30 03/01/24 11:00 Temperature 97.0 F L Pulse Rate Pulse Rate [Pulse Oximeter] 91 91 97 Respiratory Rate 24 24 20 Blood Pressure Blood Pressure [Le ft Arm] Blood Pressure [Ri ght forearm] 128/54 L 132/67 Pulse Oximetry 90 95 Oxygen Delivery Me thod Room Air Oxygen Flow Rate Documenting provider has reviewed patient's vital signs: yes Labs Labs: Laboratory Results - last 24 hr 02/29/24 19:01 WBC 5.82 RBC 3.43 L Hgb 9.8 L Hct 32.7 L MCV 95 MCH 29 MCHC 30 L RDW Coeff of Vilma 13.2 Plt Count 192 Neut % (Auto) 70.5 Lymph % (Auto) 17.2 L [place] % (Auto) 9.6 Eos % (Auto) 1.7 Baso % (Auto) 0.5 Neut # (Auto) 4.10 Lymph # (Auto) 1.00 [place] # (Auto) 0.60 Eos # (Auto) 0.10 Baso # (Auto) 0.03 Abs Immat Gran (auto) 0.03 Imm/Tot Granulo (auto) 0.5 Sodium 139 Potassium 4.1 Chloride 107 Carbon Dioxide 27 Anion Gap 5 L BUN 22 Creatinine 1.1 Estimated Creat Clear 41.68 Estimated GFR 54 Glucose 122 H Lactate 1.4 Calcium 8.6 Magnesium 2.3 C-Reactive Protein 3.8 H
[2024-03-01] MEDS: MORPHINE 4 MG/ML INJ IM (12:29)
[2024-03-01] MEDS: LORazepam 2 MG/ML inj 1 MG IM (13:37)
--- NOTE | 2024-03-01 14:13 | PC.NURSE ---
Unsure of placement did get a little yellow tinge fluid unsure if its urine as did not get enough to even measure and patient had a inc episode right before we placed the cath.
--- NOTE | 2024-03-01 14:29 | P.GSCN_ITS ---
History of Present Illness Consult details Date Seen: 03/01/24 Consult date: 03/01/24 Narrative: I was asked to see the patient today to evaluate a sacral decubitus ulcer. Patient does have a history of previous open wounds to the buttock and posterior thigh. Per the patient she has spent the last 9 months in a snf and had a recent hospitalization at [facility], during which time the wounds completely healed. Last week her boyfriend told her that the buttock wound had opened up and looked infected. She denies any drainage that she has noticed. She has not applied any dressings to the area. She does often sit in her wheelchair or lie in her bed. Her biggest complaint today is pain in her left knee. This happened after she boosted herself up in her wheelchair yesterday and is the reason why she came to the hospital today. Patient was very resistant to any bedside debridement and refused any dressings to the wound. She did agree to have the wound looked at, without intervention. She has significant comorbidites, which are barriers to wound healing, and include: morbid obesity, decreased mobility, incontinence of urine, severe lymphedema bilateral, anxiety/panic disorder and medical non compliance. She was last seen at the [facility] in 2020. Review of Systems Status of ROS: Reports: unobtainable due to medical condition (patient with severe anxiety and refusing to answer questions. ) [facility] Medical History (Updated 03/01/24 @ 12:19 by Du Carcamo MD) Discharge planning issues ?Z75.8 - Other problems related to medical facilities and other health care (ICD-10) Seborrheic dermatitis ?L21.9 - Seborrheic dermatitis, unspecified (ICD-10) At risk for venous thromboembolism (VTE) ?Z91.89 - Other specified personal risk factors, not elsewhere classified (ICD-10) Anxiety ?F41.9 - Anxiety disorder, unspecified (ICD-10) Cognitive impairment ?R41.89 - Other symptoms and signs involving cognitive functions and awareness (ICD-10) Anemia ?D64.9 - Anemia, unspecified (ICD-10) GI bleeding ?K92.2 - Gastrointestinal hemorrhage, unspecified (ICD-10) Ulcer of sacral region, stage 4 ?L98.429 - Non-pressure chronic ulcer of back with unspecified severity (ICD- 10) Stage IV pressure ulcer of sacral region ?L89.154 - Pressure ulcer of sacral region, stage 4 (ICD-10) Chronic pain ?G89.29 - Other chronic pain (ICD-10) Recurrent depression ?F33.9 - Major depressive disorder, recurrent, unspecified (ICD-10) Panic attacks ?F41.0 - Panic disorder [episodic paroxysmal anxiety] (ICD-10) Insomnia ?G47.00 - Insomnia, unspecified (ICD-10) Restless legs syndrome ?G25.81 - Restless legs syndrome (ICD-10) Urge incontinence of urine ?N39.41 - Urge incontinence (ICD-10) Controlled substance agreement signed ?Z79.899 - Other long term acute care registered nurse (current) drug therapy (ICD-10) Vitamin D deficiency ?E55.9 - Vitamin D deficiency, unspecified (ICD-10) MRSA (methicillin resistant staph aureus) culture positive (~12/05/15) ?Z22.322 - Carrier or suspected carrier of Methicillin resistant Staphylococcus aureus (ICD-10) Left ureteral stone (~12/11/15) ?N20.1 - Calculus of ureter (ICD-10) CKD (chronic kidney disease), stage III ?N18.30 - Chronic kidney disease, stage 3 unspecified (ICD-10) Acute osteomyelitis of coccyx (~08/2015) ?M46.28 - Osteomyelitis of vertebra, sacral and sacrococcygeal region (ICD- 10) Ulcers of both lower extremities with fat layer exposed ?L97.912 - Non-pressure chronic ulcer of unspecified part of right lower leg with fat layer exposed (ICD-10) ?L97.922 - Non-pressure chronic ulcer of unspecified part of left lower leg with fat layer exposed (ICD-10) Iron deficiency 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 ?D50.1 - Sideropenic dysphagia (ICD-10) Acute kidney injury (~01/2015) ?N17.9 - Acute kidney failure, unspecified (ICD-10) Dysthymia ?F34.1 - Dysthymic disorder (ICD-10) Bilateral leg weakness ?R29.898 - Other symptoms and signs involving the musculoskeletal system (ICD-10) Chronic acquired lymphedema ?I89.0 - Lymphedema, not elsewhere classified (ICD-10) Chronic, continuous use of opioids ?F11.90 - Opioid use, unspecified, uncomplicated (ICD-10) Venous stasis ulcer of thigh with fat layer exposed ?I83.001 - Varicose veins of unspecified lower extremity with ulcer of thigh (ICD-10) ?L97.102 - Non-pressure chronic ulcer of unspecified thigh with fat layer exposed (ICD-10) Elevated TSH ?R79.89 - Other specified abnormal findings of blood chemistry (ICD-10) DJD (degenerative joint disease) of knee ?M17.9 - Osteoarthritis of knee, unspecified (ICD-10) Morbid obesity ?E66.01 - Morbid (severe) obesity due to excess calories (ICD-10) Essential hypertension ?I10 - Essential (primary) hypertension (ICD-10) Surgical History S/P debridement ?Z98.890 - Other specified postprocedural states (ICD-10) S/P ureteral stent placement ?Z96.0 - Presence of urogenital implants (ICD-10) Family History Brother Diabetes Cardiovascular disease Father Cardiovascular disease High blood pressure Sister High cholesterol High blood pressure Mother Dementia Social History (Updated 02/29/24 @ 23:58 by Rocio Jorge MD) Narrative: Lives independently, partner Alex often with her; he is here with her today. 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 Smoked an average of 0.3 packs per day for 2 years, quit in 1970. Denies alcohol use. Denies recreational drug use. Wishes to be full code. Sons Bhargav or Bill would be primary medical decision maker if needed. What is your current living situation?: I presently have a place to live Problems where you live: no known problems Problems where you live details: None In the past 12 months, utilities in danger of being shut off: no In past 12 months, lack of transportation kept you from medical appts, meetings, work, or getting things needed for daily living: no In the past 12 mos, have been you worried that your food would run out before you had money to buy more?: never true In the past 12 mos, the food you bought just didn't last and you didn't have money to buy more?: never true Highest level of school completed/degree received: 11th grade Smoking Status: Never smoker Do you use any of these nicotine containing products: None Second hand tobacco smoke exposure: No How often do you have a drink containing alcohol: never How often do you have six or more drinks on one occasion: Never AUDIT-C Alcohol total score: 0 Non-prescribed substance use: denies use Caffeine: No How often does anyone, including family, friends and others, physically hurt you : never How often does anyone, including family, friends and others, insult or talk down to you: never How often does anyone, including family, friends and others, threaten you with harm: never How often does anyone, including family, friends and others, scream or curse at you: never service: No Meds Home Medications and Allergies Home Medications ?Medication ?Instructions ?Recorded ?Confirmed ?Type acetaminophen 500 mg capsule 1,000 mg PO TID PRN 03/28/23 03/01/24 History ferrous sulfate 325 mg (65 mg 325 mg PO DAILY 03/28/23 03/01/24 History iron) tablet,delayed release furosemide 20 mg tablet 20 mg PO DAILY 03/28/23 03/01/24 History ondansetron 4 mg disintegrating 4 mg PO Q8H PRN 03/28/23 03/01/24 History tablet potassium chloride 10 mEq 10 meq PO DAILY 03/28/23 03/01/24 History tablet,extended release duloxetine 60 mg capsule,delayed 60 mg PO DAILY 10/04/23 03/01/24 History release zinc oxide 1 applic topical BID PRN 10/04/23 03/01/24 History citalopram 20 mg tablet 20 mg PO DAILY 03/01/24 03/01/24 History lidocaine 4 % topical cream 1 applic topical DAILY PRN 03/01/24 03/01/24 History lorazepam 0.5 mg tablet 0.5 mg PO DAILY PRN 03/01/24 03/01/24 History Allergies Allergy/AdvReac Type Severity Reaction Status Date / Time amoxicillin Allergy Unknown Verified 02/29/24 11:44 buspirone [From BuSpar] Allergy Unknown Verified 02/29/24 11:44 cephalexin [From Keflex] Allergy Unknown Verified 02/29/24 11:44 doxycycline Allergy Unknown Verified 02/29/24 11:44 latex Allergy Unknown Verified 02/29/24 11:44 lisinopril Allergy Unknown Verified 02/29/24 11:44 Penicillins Allergy Unknown Verified 02/29/24 11:44 Sulfa (Sulfonamide Allergy Unknown Verified 02/29/24 11:44 Antibiotics) Exam Narrative: Exam Narrative: Gen: patient alert and oriented. Anxiety and panic during examination clouding judgement and thought. Non toxic in appearance. Resp: equal breath rise, maintained on RA CV: well perfused Abdomen: morbid obesity : Stage IV sacral ulcer, palpation of underlying bone with no bone exposed. Opening approximately 2 x 2 cm with 2 cm depth. 1 cm undermining circumferential. Fibrinous exudate within tissue base, no necrotic tissue or associated abscess. No active drainage. Surrounding erythematous and blanching skin suggestive of pressure to bilateral buttock and posterior thighs. Several small skin tears and areas of maceration. Foul odor of urine suggesting incontinence. Ext: bilateral lower extremity lymphedema with inflammatory changes bilateral. LLE with lidocaine patches in place. Const: Vital Signs, click to edit/add: Vital Signs - 24 hr 02/29/24 14:40 02/29/24 14:44 02/29/24 14:45 Temperature Pulse Rate 84 80 80 Pulse Rate [Pulse Oximeter] Respiratory Rate Blood Pressure 134/57 L Blood Pressure [Le ft Arm] Blood Pressure [Ri ght forearm] Pulse Oximetry 89 91 89 Oxygen Delivery Me thod Oxygen Flow Rate 02/29/24 15:00 02/29/24 15:02 02/29/24 15:03 Temperature Pulse Rate 83 78 82 Pulse Rate [Pulse Oximeter] Respiratory Rate Blood Pressure 114/65 Blood Pressure [Le ft Arm] Blood Pressure [Ri ght forearm] Pulse Oximetry 94 98 Oxygen Delivery Me thod Oxygen Flow Rate 02/29/24 15:20 02/29/24 15:28 02/29/24 15:30 Temperature Pulse Rate 86 85 Pulse Rate [Pulse Oximeter] Respiratory Rate 18 Blood Pressure Blood Pressure [Le ft Arm] Blood Pressure [Ri ght forearm] Pulse Oximetry 89 90 Oxygen Delivery Me thod Oxygen Flow Rate 02/29/24 15:32 02/29/24 15:45 02/29/24 16:00 Temperature Pulse Rate 78 76 79 Pulse Rate [Pulse Oximeter] Respiratory Rate Blood Pressure 131/64 Blood Pressure [Le ft Arm] Blood Pressure [Ri ght forearm] Pulse Oximetry 97 100 100 Oxygen Delivery Me thod Nasal Cannula Nasal Cannula Nasal Cannula Oxygen Flow Rate 2 2 2 02/29/24 16:02 02/29/24 16:15 02/29/24 16:30 Temperature Pulse Rate 77 82 81 Pulse Rate [Pulse Oximeter] Respiratory Rate Blood Pressure 130/56 L Blood Pressure [Le ft Arm] Blood Pressure [Ri ght forearm] Pulse Oximetry 98 99 96 Oxygen Delivery Me thod Nasal Cannula Nasal Cannula Nasal Cannula Oxygen Flow Rate 2 2 1 02/29/24 16:32 02/29/24 16:45 02/29/24 17:00 Temperature Pulse Rate 74 76 82 Pulse Rate [Pulse Oximeter] Respiratory Rate Blood Pressure 132/65 Blood Pressure [Le ft Arm] Blood Pressure [Ri ght forearm] Pulse Oximetry 90 90 96 Oxygen Delivery Me thod Nasal Cannula Nasal Cannula Oxygen Flow Rate 1 1 02/29/24 17:02 02/29/24 17:17 02/29/24 17:30 Temperature Pulse Rate 84 87 83 Pulse Rate [Pulse Oximeter] Respiratory Rate Blood Pressure 117/77 Blood Pressure [Le ft Arm] Blood Pressure [Ri ght forearm] Pulse Oximetry 96 97 94 Oxygen Delivery Me thod Oxygen Flow Rate 02/29/24 17:32 02/29/24 17:45 02/29/24 18:00 Temperature Pulse Rate 82 86 94 Pulse Rate [Pulse Oximeter] Respiratory Rate Blood Pressure 122/56 L Blood Pressure [Le ft Arm] Blood Pressure [Ri ght forearm] Pulse Oximetry 95 100 96 Oxygen Delivery Me thod Oxygen Flow Rate 02/29/24 18:03 02/29/24 18:15 02/29/24 18:30 Temperature Pulse Rate 104 H 94 97 Pulse Rate [Pulse Oximeter] Respiratory Rate Blood Pressure 119/54 L Blood Pressure [Le ft Arm] Blood Pressure [Ri ght forearm] Pulse Oximetry 83 L 88 85 L Oxygen Delivery Me thod Oxygen Flow Rate 02/29/24 19:02 02/29/24 19:32 02/29/24 19:59 Temperature Pulse Rate 93 Pulse Rate [Pulse Oximeter] Respiratory Rate Blood Pressure 135/70 130/71 Blood Pressure [Le ft Arm] Blood Pressure [Ri ght forearm] Pulse Oximetry 88 Oxygen Delivery Me thod Oxygen Flow Rate 02/29/24 20:00 02/29/24 20:02 02/29/24 20:52 Temperature 97.0 F L Pulse Rate 94 90 Pulse Rate [Pulse Oximeter] 89 Respiratory Rate 18 Blood Pressure 137/64 Blood Pressure [Le ft Arm] 115/55 L Blood Pressure [Ri ght forearm] Pulse Oximetry 89 92 Oxygen Delivery Me thod Room Air Oxygen Flow Rate 03/01/24 00:50 03/01/24 03:10 03/01/24 05:30 Temperature Pulse Rate Pulse Rate [Pulse Oximeter] 91 Respiratory Rate 18 18 24 Blood Pressure Blood Pressure [Le ft Arm] Blood Pressure [Ri ght forearm] Pulse Oximetry Oxygen Delivery Me thod Oxygen Flow Rate 03/01/24 05:30 03/01/24 11:00 Temperature 97.0 F L Pulse Rate Pulse Rate [Pulse Oximeter] 91 97 Respiratory Rate 24 20 Blood Pressure Blood Pressure [Le ft Arm] Blood Pressure [Ri ght forearm] 128/54 L 132/67 Pulse Oximetry 90 95 Oxygen Delivery Me thod Room Air Oxygen Flow Rate Results Labs Labs: Abnormal lab results 02/29/24 Range/Units 19:01 RBC 3.43 L (4.00-5.20) m/uL Hgb 9.8 L (12.0-16.0) gm/dL Hct 32.7 L (33.0-51.0) % MCHC 30 L (32-36) gm/dL Lymph % (Auto) 17.2 L (20-44) % Anion Gap 5 L (7-15) mEq/L Glucose 122 H (60-115) mg/dL C-Reactive Protein 3.8 H (0.5-1.0) mg/dL Diabetes panel 02/29/24 Range/Units 19:01 Sodium 139 (135-149) mmol/L Potassium 4.1 (3.6-5.1) mmol/L Chloride 107 (96-114) mmol/L Carbon Dioxide 27 (20-32) mmol/L BUN 22 (7-30) mg/dL Creatinine 1.1 (0.5-1.5) mg/dL Glucose 122 H (60-115) mg/dL Calcium 8.6 (8.4-10.6) mg/dL Calcium panel 02/29/24 Range/Units 19:01 Calcium 8.6 (8.4-10.6) mg/dL Pituitary panel 02/29/24 Range/Units 19:01 Sodium 139 (135-149) mmol/L Potassium 4.1 (3.6-5.1) mmol/L Chloride 107 (96-114) mmol/L Carbon Dioxide 27 (20-32) mmol/L BUN 22 (7-30) mg/dL Creatinine 1.1 (0.5-1.5) mg/dL Glucose 122 H (60-115) mg/dL Calcium 8.6 (8.4-10.6) mg/dL Adrenal panel 02/29/24 Range/Units 19:01 Sodium 139 (135-149) mmol/L Potassium 4.1 (3.6-5.1) mmol/L Chloride 107 (96-114) mmol/L Carbon Dioxide 27 (20-32) mmol/L BUN 22 (7-30) mg/dL Creatinine 1.1 (0.5-1.5) mg/dL Glucose 122 H (60-115) mg/dL Calcium 8.6 (8.4-10.6) mg/dL All other labs normal. Progress Note:A&P Assessment and plan (1) Stage IV pressure ulcer of sacral region: Status: Acute Assessment and Plan: Patient with evidence of a stage IV sacral ulcer. This is secondary to pressure with comorbidities inhibiting healing of: morbid obesity, decreased mobility, lymphedema and medical non compliance. No abscess or appreciated purulent drainage. No necrotic tissue or need for surgical debridement at this time. Patient would benefit from a bedside debridement, but refuses intervention. Recommend BID dressing changes: - vashe soaked kerlix to sacral wound with outer ABD - zinc oxide paste to bilateral buttock and posterior thigh Patient was encouraged to off load as much as possible with frequent repositioning. She would also benefit from compression wraps or stockings to BLE with elevation of legs while in bed. Dressing changes ordered and to be done by nursing. Please call the cushion assembler surgeon with any acute clinical changes, questions or concerns.
[2024-03-01 17:25] LABS: Appearance Urine Clear (Clear); Bilirubin Urine Negative (Negative); Blood Urine 3+ (Negative); Color Urine Yellow (Yellow); Glucose Urine Negative (Negative); Ketones Urine 1+ (Negative); Leukocyte Esterase Urine Negative (Negative); Nitrite Urine Positive (Negative); Protein Urine 1+ (Negative); Specific Gravity Urine >= 1.030 (1.000-1.030); Urobilinogen Urine 0.2 (0.2-1.0)
[2024-03-01 18:14] LABS: Bacteria Urine Few; RBC Urine 0-2 (0-2); Squamous Epithelial Cell Urine Few (None-Few); WBC Urine 0-2 (0-5)
--- NOTE | 2024-03-01 18:55 | PC.NURSE ---
7-15: The patient is apprehensive to care and yells, and is rude to staff during some interactions. It works best to talk to the patient in a soft tone of voice and walk her through the steps of what the plan of action is. The patient rated her LLE pain at a 11/10 this AM. Some erythema is noted as well as some blistering lymphedema sores without weeping. The patient struggles to even turn to her side without assistance. Very anxious/ loud prior to turning and cleansing wounds and providing MARGARITA care. Sacrum tunneled wound noted (pencil size hole). Whole buttocks/ back of bilateral thighs is excoriated/ weeping and bleeding at certain locations. Cleansed as best as possible, then dried and fresh linens were assessed throughout the shift. A covarrubias was placed with assistance from LT and PS RN. No Iv insertion attempt was successful. Received 2MG of ativan IM due to her anxiety as well as 4mg of morphine IM. The patient did state that this helped her pain. Repositioned as the patient allowed. Call light within reach. Behavior plan in place. Nancy LOPEZ BSN
--- NOTE | 2024-03-01 18:57 | PC.NURSE ---
shift note: pt expressing feelings of anxiety and feeling warm as nursing approached to perform wound care. Reassurance and step by step instruction of wound care provided prior to task helped pt with anxiety. po area cleaned and nystantin powder with wash cloths placed in creases to assist with moisture. lt l/e with redness and edema. covarrubias placed with yellow returns in bag. vss stable. pt afeb.
[2024-03-01] MEDS: buprenorphine HCL 2 MG TAB.SUBL 1 MG SUBLINGUAL (20:54)
[2024-03-01] MEDS: ENOXAPARIN 40 MG/0.4 ML INJ SUBCUT (20:57)
[2024-03-01] MEDS: NYSTATIN POWDER 1 APPLIC TOPICAL (21:00)
[2024-03-02] VITALS (42 sets, daily range): BP systolic 101–196; BP diastolic 52–143; PULSE 78–111; RESP 12–28; TEMP 35.9–37.2; O2SAT 79–99
--- NOTE | 2024-03-02 01:20 | CRLHL7_ITS ---
For Patients: As a result of the Century Cures Act, medical imaging exams and procedure reports are released immediately into your electronic medical record. You may view this report before your referring provider. If you have questions, please contact your health care provider. INDICATION: Low sats TECHNIQUE: Chest radiograph 1 view on 2 films COMPARISON: None FINDINGS: The sensitivity and specificity of the exam are severely limited by the patient`s body habitus. Mediastinum: The mediastinum is normal in appearance. The heart silhouette is normal in size and morphology. Lung: Very small lung volumes are present with pulmonary vascular congestion, perihilar edema and atelectasis noted. No sign of pleural effusion seen. No pneumothorax is identified. Bone and Soft tissue: Unremarkable for age. IMPRESSION: 1. Very small lung volumes are present with pulmonary vascular congestion, perihilar edema and atelectasis noted. Dictated by Cisco Fleming MD @ 03/02/2024 1:58:10 AM Dictated by: Cisco Fleming MD @ 03/02/2024 01:58:15 (Electronically Signed)
[2024-03-02 01:46] LABS: Base Excess ABG 1.2 mmol/L (-3.0-3.0); Carboxyhemoglobin* 1.7 % (0.0-5.0); HCO3 ABG 30 mmol/L (21-28); Oxygen Saturation ABG 96 % (92-100); PO2 ABG 82.2 mmHG (80-105); TCO2 ABG 28 mmol/l (21-30); pH ABG 7.25 (7.35-7.45)
[2024-03-02 01:48] LABS: ABG PCO2 68 mmHG (35-45)
--- NOTE | 2024-03-02 02:09 | PM.IMPN1 ---
Progress Note: A&P Assessment and plan (1) Acute respiratory failure: Status: Acute (2) Acute diastolic CHF (congestive heart failure): Status: Acute (3) Obesity hypoventilation syndrome: Status: Acute (4) Anxiety: Problem details: Has a longstanding history of significant anxiety that interferes with her ability to cooperate with plan of care. Previously had been on Ativan but she is a high risk for complications from this. Continue duloxetine. Status: Chronic (5) Medically noncompliant: Problem details: She has had 3 discharge is against medical advice from halfway facilities since October 12 2023. - history of refusing recommended medications, procedures, treatments - Willing to consider rehab, but I am not sure if that is an option. I think she need long-term SNF. Status: Acute (6) Morbid obesity: Problem details: - chronic with BMI 58 - weight on discharge in 06/05 was 111.7kg; 137 on admission 10/02/23; 131.5 kg today, 02/29/2024. - unclear what her weight was upon leaving [facility] - Nutrition consult. 1500 calorie diet Status: Chronic Plan IV lasix BIPAP as needed to keep sats above 90% Ativan PRN for agitation Time Spent With Patient Total time spent: 65 Subjective Time Seen by Provider: 01:30 Date Seen: 03/02/24 Interval history: 68 year old female with multiple medical comorbidities including morbid obesity who presents to the hospital with complaints of Failure to thrive. This patient has had an extensive amount of medical issues. Upon review, she has bilateral lower extremity weakness, stage IV sacral ulcer that apparently there is some bone exposed based on clinical exam but the patient has refused CT scans and interventions. She also has a previous history of opiate dependence and chronic pain issues. Ratna, nursing staff contacted me after the patient was hypoxic. At 1 point she was in the 50s. With oxygen intervention she remained in the 70s and 80s. ABG was obtained, pH was 7.25, pO2 was 82 and pCO2 was 68. Bicarb level was in the 30s. Chest x-ray was obtained which showed low lung volumes and pulmonary vascular congestion. Upon clinical exam the patient appeared to be in respiratory distress. She was placed on BiPAP and essentially after a few minutes, she was able to come up to 100% saturation. Unfortunately the patient refused to have any mask on her face. She requested the BiPAP off. We placed her on a 15 L nonrebreather which continue to maintain her saturation above 95% however again the patient refused to keep the mask on. Will replace the nasal cannula on, her oxygen levels dipped into the 80s. My assumption is, that this patient has a combination of mild congestive heart failure with superimposed obesity hypoventilation syndrome. This is based on the fact the patient is morbidly obese with a BMI greater than 50, her bicarb level greater than 30 with a pCO2 of 68, my assumption is that she has chronic hypoventilation and this has been going on for some time. She responded very quickly to BiPAP which is a reassuring issue. Her body habitus is also an issue given the low lung volumes. I started the patient on IV Lasix, and we tried to have her on BiPAP but the patient refused. I did provide her Ativan due to agitation and nursing staff will attempt to put her on BiPAP again if she is willing. She remains a full code and I requested her to speak to the primary team in the a.m. if she plans to change this. At this time she still wants to be full code. Exam Narrative: Exam Narrative: patient seen and examined morbidly obese female appearing to be in respiratory distress breathing from abdominal muscles, was placed on BIPAP Patient is alert and oriented and agitated due to bipap on mask Const: Vital Signs, click to edit/add: Vital Signs - 24 hr 03/01/24 03:10 03/01/24 05:30 03/01/24 05:30 Temperature Pulse Rate [Pulse Oximeter] 91 91 Respiratory Rate 18 24 24 Blood Pressure [Ri ght forearm] 128/54 L Pulse Oximetry 90 Oxygen Delivery Me thod Room Air 03/01/24 11:00 03/01/24 15:00 03/01/24 19:00 Temperature 97.0 F L 96.7 F L 97.6 F Pulse Rate [Pulse Oximeter] 97 101 H 98 Respiratory Rate 20 26 H 20 Blood Pressure [Ri ght forearm] 132/67 146/64 H 137/67 Pulse Oximetry 95 86 L 89 Oxygen Delivery Me thod Room Air Room Air Labs Labs: Laboratory Results - last 24 hr 03/01/24 03/02/24 17:16 01:45 ABG pH 7.25 L ABG pCO2 68 H* ABG pO2 82.2 ABG HCO3 30 H ABG Total CO2 28 ABG O2 Saturation 96 ABG Base Excess 1.2 Carboxyhemoglobin 1.7 Urine Color Yellow Urine Appearance Clear Urine pH 5.0 Ur Specific Easley >= 1.030 Urine Protein 1+ A Urine Glucose (UA) Negative Urine Ketones 1+ A Urine Blood 3+ A Urine Nitrite Positive A Urine Bilirubin Negative Urine Urobilinogen 0.2 Ur Leukocyte Esterase Negative Urine RBC 0-2 Urine WBC 0-2 Ur Squamous Epith Cells Few Urine Bacteria Few A
[2024-03-02] MEDS: LORazepam 2 MG/ML inj 1 MG IVP (02:17)
[2024-03-02] MEDS: FUROSEMIDE 10 MG/ML inj 40 MG IVP ×3 (02:24→18:20)
[2024-03-02 02:33] LABS: Chloride* 106 mmol/L (96-114); Potassium* 4.3 mmol/L (3.6-5.1); Sodium* 142 mmol/L (135-149)
[2024-03-02 02:36] LABS: Anion Gap 7 mEq/L (7-15); Blood Urea Nitrogen* 18 mg/dL (7-30); Carbon Dioxide* 29 mmol/L (20-32); Est. Creatinine Clearance* 45.85; Estimated Glomerular Filt Rate 61 ml/min
[2024-03-02 02:37] LABS: Calcium* 8.7 mg/dL (8.4-10.6); Glucose* 117 mg/dL (60-115)
--- NOTE | 2024-03-02 03:40 | PC.NURSE ---
0000 pt had order for restful vitals. RN had did vitals and noted sats to be 55%. Had asked me if I could help her problem solve. Indeed pt did have very low sats with rapid HR via auscultation. Pt is a bariatric pt and it took some time to gather multiple staff to get her higher up in bed to expand her lungs. Despite these efforts pt continued to decline but yell at staff and refuse turning and repositioning. Dr Verdugo was notified with telehealth at . Pt continued to refuse cares. ABGs were drawn, PCXR was done and CHILD WELFARE WORKER was able to establish IV access with guided ultrasound. BIPAp, NRB, NC tried with pt resistant to anything on her face. Ativan waa finally given IV with good success. Pt was able to reposition and said her CODE status would need to be readdressed in the am as she is now a full CODE at present.
[2024-03-02] MEDS: LIDOCAINE 5% PATCH 1 PATCH TRANSDERMA (03:52)
--- NOTE | 2024-03-02 04:04 | PC.NURSE ---
Shift report [id number]: Began the shift approaching Pt with therapeutic communication and explaining the night to Pt. Pt first refused VS to be taken and stated, I just want to be left alone to sleep. [employer] Service [employer] Operator let the Pt rest and did VS with scheduled bedtime medications. Pt stated, Get out of my room you are taking too long, and I just want to sleep. Pt refused repositioning and assessing wound. [employer] Service Unit Operator allowed Pt to sleep until 2330 for another set of VS. VS: BP: 123/62, P: 111, RR: 16, 02 SAT: 55%. [employer] Service [employer] Operator immediately notified charge. Attempted repositioning which was ineffective. [employer] Service Unit Operator stayed with Pt while charge notified telehealth MD. EKG was ordered and done by and JOHN Nunez. Bipap was placed on Pt per MD orders by JOHN Diaz. The following interprofessional teams entered the room: Chest X-Ray and Lab. MD was now logged on telehealth and speaking to Pt. Anesthesia came in to place an IV. Once the IV was in place, 1MG Ativan given, 40 MG Lasix given. During intervention and communication with the MD, Pt refused to wear bipap and nonrebreather. NC was then placed @ 15 L and pt is tolerating well. Pt was calm and resting. Linens were changed, new lidocaine patch applied, call light within reach. Continuing to monitor oxygen levels and titrating oxygen down. ?
[2024-03-02 07:37] LABS: NT Pro B Type NatriureticPept* 2710 pg/mL; Troponin I* 0.03 ng/mL (0.01-0.04)
--- NOTE | 2024-03-02 08:02 | PC.NURSE ---
Pt restful from 0400 til 0700. Remains tachy low 100's to 120's. Resp 24 with Sats 98-100 on 4L NC. Has been weaned down from 15L NC per Dr Verdugo telehealth . BP remain slightly high. Foey with 1800 out from Lasix 40mg IV given around 2am
[2024-03-02] MEDS: METOPROLOL TARTRATE 1 MG/ML inj 5 MG IVP (08:09)
--- NOTE | 2024-03-02 08:33 | PC.NURSE ---
When I arrived on Shift was updated on patient overnight of difficulty with keeping her oxygen sats up. They repositioned contacted pensions retirement plan specialist dr received orders. Unfortunately at the start of our shift she was refusing to let us monitor her oxygen sat and she was pulling off her oxygen. Dr. Carcamo was in to talk with patient about the situation. She was requesting that i contact her children, Mick, Bhargav, and Marilu. I did reach Marilu by phone and she is in [place]. I had her on speaker phone so that she could talk with her mom and we could update her on the situation. Left messages for Mick and Bhargav. Mick did call back I updated him on the situation he is currently at work and will leave and come and see his mother. She is currently resting in bed at 90% on room air.
[2024-03-02 09:14] LABS: Troponin I* 0.05 ng/mL (0.01-0.04)
[2024-03-02 10:01] LABS: Chloride* 103 mmol/L (96-114); Potassium* 4.3 mmol/L (3.6-5.1); Sodium* 142 mmol/L (135-149)
[2024-03-02 10:02] LABS: pH VBG 7.267 (7.32-7.43)
[2024-03-02 10:03] LABS: HCO3 VBG 30 mmol/L (21-28); PCO2 VBG 68 mmHG (40-50); PO2 VBG 30.1 mmHG (25-47)
[2024-03-02 10:04] LABS: Anion Gap 9 mEq/L (7-15); Carbon Dioxide* 30 mmol/L (20-32); Est. Creatinine Clearance* 45.85; Estimated Glomerular Filt Rate 61 ml/min; Magnesium* 2.2 mg/dL (1.5-2.6)
[2024-03-02 10:05] LABS: Blood Urea Nitrogen* 17 mg/dL (7-30); Calcium* 8.9 mg/dL (8.4-10.6); Glucose* 107 mg/dL (60-115)
[2024-03-02 10:07] LABS: C Reactive Protein* 6.4 mg/dL (0.5-1.0)
[2024-03-02] MEDS: LIDOCAINE 5% PATCH 2 PATCH TRANSDERMA (12:44)
[2024-03-02] MEDS: NYSTATIN POWDER 1 APPLIC TOPICAL (12:45)
[2024-03-02] MEDS: POTASSIUM CHLORIDE 10 MEQ CAPSULE ER PO (12:46)
[2024-03-02] MEDS: DULOXETINE 30 MG CAPSULE DR 60 MG PO (12:46)
[2024-03-02] MEDS: CELECOXIB 100 MG CAPSULE PO (12:46)
[2024-03-02] MEDS: SODIUM CHLORIDE 0.9 % (FLUSH) 10 ML SYRINGE 5 ML IVF ×2 (12:47→18:21)
[2024-03-02] MEDS: FERROUS SULFATE 325 MG TABLET PO (12:47)
--- NOTE | 2024-03-02 12:54 | PC.SOCIAL ---
Addendum entered by FRANSISCO Eddy 03/02/24 15:50: [facility] at [phone] has potential beds next week. Addendum entered by FRANSISCO Eddy 03/02/24 15:10: Return call from [facility]. They have no available beds. Original Note: Bariatric nursing homes called for availability for pt. 1. [facility]-[phone], (Has Openings) 2. [facility]-Email sent on availability 3. [facility]- Email sent on availability 4. [facility]-[phone] Message left on availability 5. [facility]- [phone] Message left on availability 6. [facility]- [phone]. Has no openings 7. [facility]/ and [facility]- [phone]. Message left on availability 8. [facility]- [phone]. Message left on availability 9. [facility]- [phone]. No beds until next week 10. [facility]-[phone] Message left on availability 11. [facility]-Email sent on availability 12. [facility] [place] [phone], (Has openings) 13. [facility] [phone] [facility], (Has openings) When pt. is medically ready referrals will be sent to [facility], [facility], and [facility] who all have availability. If pt. is not medically ready until later next week [facility] may be an option as well.
--- NOTE | 2024-03-02 14:12 | PC.NURSE ---
Spoke with Dr. Carcamo regarding patient and her oxygen status when she falls asleep. He states to be cautious with her oxygen use. If she is sleeping and in the high 80's to low 90's for her oxygen sats he is ok with this. Update that when she fell asleep he sats was 82% and did apply oxygen about a 1/2 to 1 liter. sats with her sleeping are 87%.
--- NOTE | 2024-03-02 16:07 | P.IMPN_ITS ---
Progress Note: A&P Assessment and plan (1) Acute respiratory failure: Problem details: Appears to be primarily hypoventilation with both hypoxia and hypercarbia associated with decreased mental status. Due to a combination of factors: Almost certainly has chronic obesity hypoventilation and sleep apnea. She has not been willing or able to consider evaluation or treatment of this in the past. She has new heart failure. Not previously had this diagnosis. She has been on furosemide as an outpatient but has told me she has discontinued it. She also received buprenorphine in attempt to address her severe pain. As with her hospitalization in September 2023 it was felt that this would be a safer approach to managing her severe back and left knee pain and allowed nurses to provide cares for her and repositioning without her crying out in pain. This may have contributed to her sedation leading to her hypoventilation. Status: Acute (2) Acute diastolic CHF (congestive heart failure): Problem details: Diurese, optimize treatment, obtain echo Status: Acute (3) Obesity hypoventilation syndrome: Problem details: This is likely with elevated pCO2 and bicarbonate. She would benefit from sleep study and CPAP or BiPAP. Not currently cooperative with this treatment Status: Acute (4) Anxiety: Problem details: Has a longstanding history of significant anxiety that interferes with her ability to cooperate with plan of care. Previously had been on Ativan but she is a high risk for complications from this with her respiratory depression. Continue duloxetine. Status: Chronic (5) Medically noncompliant: Problem details: She has had 3 discharge is against medical advice from halfway facil ities since October 12 2023. - history of refusing recommended medications, procedures, treatments - Willing to consider rehab, but I am not sure if that is an option. I think she need long-term SNF. Status: Acute (6) Morbid obesity: Problem details: - chronic with BMI 58 - weight on discharge in 06/05 was 111.7kg; 137 on admission 10/02/23; 131.5 kg today, 02/29/2024. - unclear what her weight was upon leaving [facility] - Nutrition consult. 1500 calorie diet Status: Chronic (7) Osteoarthritis: Problem details: Patient reports severe back and knee pain which has been disabling for her. Clearly her hypoventilation respiratory failure is a contraindication to opioid therapy at this time. Continue other modalities for pain management. Status: Acute (8) Adult failure to thrive: Problem details: Failing when living at home. Doing better when cared for in halfway facility or hospital. Status: Acute (9) Ulcer of sacral region, stage 4: Problem details: - hospitalized for this in 06/05, improved 09/2023, patient and partner reported prior resolution. Now stage 4 again 02/29/24. Previously has refused surgery and debridement. Currently general surgery feels she is not needing surgery. If she did need surgery would require surgical ICU care. Medical management with offloading pressure is primary treatment at this time. Good wound care and skin care surrounding this also important. At home she primarily is in a recliner and not able to affectively offload. Status: Acute (10) Discharge planning issues: Problem details: Needs fpc. Work with social sciences lecturer and the county to make a disposition plan. May need guardianship from the [facility]. Status: Acute Plan Continue in hospital for evaluation management of respiratory failure, hypoventilation, heart failure, chronic pain, disability and working towards a safe discharge plan. Time Spent With Patient Total time spent: Total time spent today is 100 minutes in critical care evaluation and treatment Subjective Date Seen: 03/02/24 Interval history: Gracia Louise is a 68-year-old female with stage IV sacral ulcer, chronic back and left knee pain and morbid obesity who is admitted through the emergency department with severe left knee pain and inability to care for herself. She was seen in our emergency department on February 24, February 26 and yesterday February 28 for her back pain and knee pain. Yesterday she was unable to stand to transfer and was admitted to the hospital for plan of care. Gracia has been struggling to live independently at home over the last couple weeks. Prior to that she has been in a hospital or fpc since 05/14/20. May 14 to 06/02/2023 she was hospitalized here for COVID infection as well as a groin cellulitis and UTI. She was found to be profoundly weak and unable to care for herself so she was sent to a halfway facility in [place] until 10/01/2023. She discharged herself from there against medical advice and came to our emergency room 10/02/2023. Again seen to be unable to care for hers elf so she was hospitalized here until 10/12/2023. She was discharged to a halfway facility in [facility]. She discharged herself from that nursing facility and was admitted to [facility] on Oct 13 2023. She was hospitalized there through 10/22/2023 and discharged to another halfway facility. She remained there until about 2 weeks ago by her report. She discharged herself against medical advice to home. Patient has done well when she is state in a fpc for months getting appropriate repositioning and skin care and wound care and therapy. She has not however gotten to the point where the therapists and medical providers in the fpc felt she was going to be successful living independently. At home she has been struggling. She can no longer transfer herself from bed to chair. She reports the primary problem is is that her back in her low left leg hurt too much. She can not roll over in bed for wound care and to take pressure off of her decubitus ulcer. She cannot take care of her skin breakdown and skin infections in her skin folds. She contacted her primary care doctor to arrange for an EZ stand the day prior to admission. She has been in our emergency department 3 times in the last 5 days because of her inability to manage her pain and mobility and self cares at home. She has not had a recent illness with cough, fever, sore throat, chest pain, unusual dyspnea, abdominal pain, nausea, vomiting, diarrhea. She is incontinent of urine possibly because she is immobile. Radiographs of her left knee including plain films and CT show fairly severe degenerative changes 03/02/2024: Overnight ON-CALL: Ratna, nursing staff contacted me after the patient was hypoxic. At 1 point she was in the 50s. With oxygen intervention she remained in the 70s and 80s. ABG was obtained, pH was 7.25, pO2 was 82 and pCO2 was 68. Bicarb level was in the 30s. Chest x-ray was obtained which showed low lung volumes and pulmonary vascular congestion. Upon clinical exam the patient appeared to be in respiratory distress. She was placed on BiPAP and essentially after a few minutes, she was able to come up to 100% saturation. Unfortunately the patient refused to have any mask on her face. She requested the BiPAP off. We placed her on a 15 L nonrebreather which continue to maintain her saturation above 95% however again the patient refused to keep the mask on. Will replace the nasal cannula on, her oxygen levels dipped into the 80s. My assumption is, that this patient has a combination of mild congestive heart failure with superimposed obesity hypoventilation syndrome. This is based on the fact the patient is morbidly obese with a BMI greater than 50, her bicarb level greater than 30 with a pCO2 of 68, my assumption is that she has chronic hypoventilation and this has been going on for some time. She responded very quickly to BiPAP which is a reassuring issue. Her body habitus is also an issue given the low lung volumes. I started the patient on IV Lasix, and we tried to have her on BiPAP but the patient refused. I did provide her Ativan due to agitation and nursing staff will attempt to put her on BiPAP again if she is willing. She remains a full code and I requested her to speak to the primary team in the a.m. if she plans to change this. At this time she still wants to be full code. 03/02/2024 CRITICAL CARE: Patient is seen in the morning and arouses to voice. She remains mildly hypoxic and hypercarbic. Appears to have some increased work of breathing. Is resisting attempts to provide supplemental oxygen or monitoring with end-tidal CO2, oximetry, cardiac monitoring, blood pressure monitoring. She is intermittently confused and disoriented. At other times is able to carry on a conversation and follow instructions. Exam Narrative: Exam Narrative: Respirations are relatively clear to auscultation with marked diminished breath sounds throughout all lung may. Distant cardiac S1, S2, regular rate and rhythm. Abdomen is soft with mild diffuse tenderness and lower extremities are unchanged from yesterday with prominent lymphedema and erythema greater left than right. She is observed well we attempt to provide cardia respiratory monitoring and support. Over the time this morning she becomes more alert but intermittently is confused. As she becomes more alert she becomes less cooperative with monitoring. She is initially on end-tidal CO2 with nasal cannula oxygen. She is able to wean off of this and for the most part able to maintain her O2 sats at 90% or higher. End-tidal CO2 monitoring shows that she has mostly in the low to mid 50s. She is tachycardic. She receives additional furosemide and metoprolol as her blood pressure and pulse are elevated. With these treatments her vital signs begin to normalize. She has a vigorous diuresis. Const: Vital Signs, click to edit/add: Vital Signs - 24 hr 03/01/24 19:00 03/01/24 23:00 03/02/24 03:00 Temperature 97.6 F 98.9 F Pulse Rate Pulse Rate [Pulse Oximeter] 98 111 H 111 H Respiratory Rate 20 16 24 Blood Pressure Blood Pressure [Le ft Arm] 169/107 H Blood Pressure [Ri ght forearm] 137/67 123/62 Pulse Oximetry 89 55 L 98 Oxygen Delivery Me thod Room Air Room Air Nasal Cannula Oxygen Flow Rate 10 Fraction of Inspir ed Oxygen 03/02/24 07:00 03/02/24 07:00 03/02/24 07:30 Temperature Pulse Rate Pulse Rate [Pulse Oximeter] 110 H Respiratory Rate 26 H Blood Pressure Blood Pressure [Le ft Arm] 194/143 H Blood Pressure [Ri ght forearm] Pulse Oximetry 85 L Oxygen Delivery Me thod Nasal Cannula Oxygen Flow Rate 2 Fraction of Inspir ed Oxygen 03/02/24 07:45 03/02/24 08:00 03/02/24 08:00 Temperature 97.0 F L Pulse Rate Pulse Rate [Pulse Oximeter] 110 H 87 108 H Respiratory Rate 26 H 22 22 Blood Pressure Blood Pressure [Le ft Arm] 196/115 H 196/115 H Blood Pressure [Ri ght forearm] Pulse Oximetry 85 L 93 85 L Oxygen Delivery Me thod Nasal Cannula Nasal Cannula Nasal Cannula Oxygen Flow Rate 2 2 4 Fraction of Inspir ed Oxygen 03/02/24 08:02 03/02/24 08:03 03/02/24 08:15 Temperature Pulse Rate Pulse Rate [Pulse Oximeter] Respiratory Rate Blood Pressure Blood Pressure [Le ft Arm] Blood Pressure [Ri ght forearm] Pulse Oximetry 89 85 L 79 L Oxygen Delivery Me thod Oxygen Flow Rate Fraction of Inspir ed Oxygen 03/02/24 08:30 03/02/24 08:30 03/02/24 08:34 Temperature Pulse Rate Pulse Rate [Pulse Oximeter] 81 Respiratory Rate 20 Blood Pressure Blood Pressure [Le ft Arm] 173/100 H Blood Pressure [Ri ght forearm] Pulse Oximetry 95 95 96 Oxygen Delivery Me thod Nasal Cannula Oxygen Flow Rate 4 Fraction of Inspir ed Oxygen 03/02/24 08:39 03/02/24 08:45 03/02/24 08:45 Temperature Pulse Rate Pulse Rate [Pulse Oximeter] 80 Respiratory Rate 19 Blood Pressure Blood Pressure [Le ft Arm] Blood Pressure [Ri ght forearm] Pulse Oximetry 95 99 Oxygen Delivery Me thod Oxygen Flow Rate Fraction of Inspir ed Oxygen 03/02/24 09:00 03/02/24 09:00 03/02/24 09:03 Temperature Pulse Rate Pulse Rate [Pulse Oximeter] 80 Respiratory Rate 19 Blood Pressure Blood Pressure [Le ft Arm] 155/88 H Blood Pressure [Ri ght forearm] Pulse Oximetry 97 99 98 Oxygen Delivery Me thod Nasal Cannula Oxygen Flow Rate 2 Fraction of Inspir ed Oxygen 03/02/24 09:15 03/02/24 09:15 03/02/24 09:30 Temperature Pulse Rate Pulse Rate [Pulse Oximeter] 89 Respiratory Rate Blood Pressure Blood Pressure [Le ft Arm] Blood Pressure [Ri ght forearm] Pulse Oximetry 94 94 89 Oxygen Delivery Me thod Nasal Cannula Oxygen Flow Rate 2 Fraction of Inspir ed Oxygen 03/02/24 09:30 03/02/24 09:32 03/02/24 09:45 Temperature Pulse Rate Pulse Rate [Pulse Oximeter] 93 Respiratory Rate 24 25 H Blood Pressure Blood Pressure [Le ft Arm] 147/98 H Blood Pressure [Ri ght forearm] Pulse Oximetry 87 L 89 91 Oxygen Delivery Me thod Room Air Room Air Oxygen Flow Rate Fraction of Inspir ed Oxygen 03/02/24 09:45 03/02/24 10:00 03/02/24 10:03 Temperature Pulse Rate Pulse Rate [Pulse Oximeter] Respiratory Rate 23 26 H 28 H Blood Pressure Blood Pressure [Le ft Arm] Blood Pressure [Ri ght forearm] Pulse Oximetry 94 88 89 Oxygen Delivery Me thod Oxygen Flow Rate Fraction of Inspir ed Oxygen 03/02/24 10:13 03/02/24 10:15 03/02/24 10:30 Temperature Pulse Rate Pulse Rate [Pulse Oximeter] Respiratory Rate 21 20 Blood Pressure Blood Pressure [Le ft Arm] Blood Pressure [Ri ght forearm] Pulse Oximetry 89 88 Oxygen Delivery Me thod Oxygen Flow Rate Fraction of Inspir ed Oxygen 75 03/02/24 10:45 03/02/24 11:00 03/02/24 11:15 Temperature Pulse Rate Pulse Rate [Pulse Oximeter] Respiratory Rate 12 25 H 26 H Blood Pressure Blood Pressure [Le ft Arm] Blood Pressure [Ri ght forearm] Pulse Oximetry 86 L 88 85 L Oxygen Delivery Me thod Oxygen Flow Rate Fraction of Inspir ed Oxygen 03/02/24 11:30 03/02/24 11:45 03/02/24 12:00 Temperature Pulse Rate 90 Pulse Rate [Pulse Oximeter] Respiratory Rate 20 25 H 17 Blood Pressure Blood Pressure [Le ft Arm] Blood Pressure [Ri ght forearm] Pulse Oximetry 86 L 87 L 88 Oxygen Delivery Me thod Oxygen Flow Rate Fraction of Inspir ed Oxygen 03/02/24 12:03 03/02/24 12:04 03/02/24 12:30 Temperature Pulse Rate 93 91 80 Pulse Rate [Pulse Oximeter] Respiratory Rate 22 19 23 Blood Pressure 169/77 H Blood Pressure [Le ft Arm] Blood Pressure [Ri ght forearm] Pulse Oximetry 87 L 88 87 L Oxygen Delivery Me thod Oxygen Flow Rate Fraction of Inspir ed Oxygen 03/02/24 13:00 03/02/24 13:00 03/02/24 13:27 Temperature 97.7 F Pulse Rate 90 Pulse Rate [Pulse Oximeter] Respiratory Rate 24 22 Blood Pressure Blood Pressure [Le ft Arm] Blood Pressure [Ri ght forearm] Pulse Oximetry 86 L 82 L Oxygen Delivery Me thod Room Air Oxygen Flow Rate Fraction of Inspir ed Oxygen 03/02/24 13:30 03/02/24 14:00 03/02/24 14:03 Temperature Pulse Rate 90 78 80 Pulse Rate [Pulse Oximeter] Respiratory Rate 17 14 17 Blood Pressure 150/76 H Blood Pressure [Le ft Arm] Blood Pressure [Ri ght forearm] Pulse Oximetry 87 L 88 90 Oxygen Delivery Me thod Oxygen Flow Rate Fraction of Inspir ed Oxygen 03/02/24 16:00 Temperature 96.7 F L Pulse Rate Pulse Rate [Pulse Oximeter] 90 Respiratory Rate 21 Blood Pressure Blood Pressure [Le ft Arm] Blood Pressure [Ri ght forearm] 119/62 Pulse Oximetry 90 Oxygen Delivery Me thod Nasal Cannula Oxygen Flow Rate 1 Fraction of Inspir ed Oxygen Documenting provider has reviewed patient's vital signs: yes Labs Labs: Laboratory Results - last 24 hr 03/01/24 03/02/24 03/02/24 17:16 01:45 02:15 ABG pH 7.25 L ABG pCO2 68 H* ABG pO2 82.2 ABG HCO3 30 H ABG Total CO2 28 ABG O2 Saturation 96 ABG Base Excess 1.2 VBG pH VBG pCO2 VBG pO2 VBG HCO3 Carboxyhemoglobin 1.7 Sodium 142 Potassium 4.3 Chloride 106 Carbon Dioxide 29 Anion Gap 7 BUN 18 Creatinine 1.0 Estimated Creat Clear 45.85 Estimated GFR 61 Glucose 117 H Calcium 8.7 Magnesium Troponin I 0.03 C-Reactive Protein NT-Pro-B Natriuret Pep 2710 Urine Color Yellow Urine Appearance Clear Urine pH 5.0 Ur Specific [place] >= 1.030 Urine Protein 1+ A Urine Glucose (UA) Negative Urine Ketones 1+ A Urine Blood 3+ A Urine Nitrite Positive A Urine Bilirubin Negative Urine Urobilinogen 0.2 Ur Leukocyte Esterase Negative Urine RBC 0-2 Urine WBC 0-2 Ur Squamous Epith Cells Few Urine Bacteria Few A Lab Acknowledgement 03/02/24 03/02/24 07:08 08:29 ABG pH ABG pCO2 ABG pO2 ABG HCO3 ABG Total CO2 ABG O2 Saturation ABG Base Excess VBG pH 7.267 L VBG pCO2 68 H* VBG pO2 30.1 VBG HCO3 30 H Carboxyhemoglobin Sodium 142 Potassium 4.3 Chloride 103 Carbon Dioxide 30 Anion Gap 9 BUN 17 Creatinine 1.0 Estimated Creat Clear 45.85 Estimated GFR 61 Glucose 107 Calcium 8.9 Magnesium 2.2 Troponin I 0.05 H C-Reactive Protein 6.4 H NT-Pro-B Natriuret Pep Urine Color Urine Appearance Urine pH Ur Specific [place] Urine Protein Urine Glucose (UA) Urine Ketones Urine Blood Urine Nitrite Urine Bilirubin Urine Urobilinogen Ur Leukocyte Esterase Urine RBC Urine WBC Ur Squamous Epith Cells Urine Bacteria Lab Acknowledgement Test Added
[2024-03-02] MEDS: ACETAMINOPHEN 500 MG TABLET 1000 MG PO (16:22)
[2024-03-02] MEDS: POTASSIUM BICARB 25 MEQ EFFERVESCENT TAB PO ×2 (18:20→19:44)
--- NOTE | 2024-03-02 19:38 | PC.NURSE ---
End of shift-- Pt alert and oriented, but appears intermittently confused. Uncooperative with cares. Pt easily becomes frustrated and expresses it by raising her voice. She was gently reminded not to yell. VSS and pt is afebrile. SPO2 maintained 88-93% on 1L per n.c. Pt continually removes n.c. and requires encouragement to replace. She denied any pain, but was given Tylenol once for general achiness, restlessness and agitation. Pt stated relief. LS coarse and very diminished in posterior bases, otherwise CTA. Telemetry shows NSR. She denied nausea and tolerated a regular diet without difficulty. Gutierrez is patent and drained approximately 100ml of yellow, cloudy urine this shift. Dressing to coccyx was changed and is now C/D/I, however patient has refused repositioning through most of the shift. Boyfriend Alex was at bedside this evening and appears loving and supportive. Report to JOHN Gillespie.
[2024-03-02] MEDS: ENOXAPARIN 40 MG/0.4 ML INJ SUBCUT (19:44)
[2024-03-02] MEDS: LORazepam 2 MG/ML inj 0.25 MG IVP (22:27)
--- NOTE | 2024-03-02 22:27 | PC.NURSE ---
Pt agitated and belligerent. notified of her unsafe behavior. Dr Francois at bs speaking to pt. Orders obtained. .25 ativian IV given. All cares explained and reexplained to pt. Remains resistant to any carers or any directions.
[2024-03-03] VITALS (16 sets, daily range): BP systolic 116–188; BP diastolic 57–113; PULSE 73–97; RESP 18–25; TEMP 36.1–36.6; O2SAT 82–100
--- NOTE | 2024-03-03 00:59 | PC.NURSE ---
PATIENT EVENT: At 2144 patient started hollering out so RN presented to patient?s room seeing patient had removed her gown, removed her supplemental O2 and was trying to get out of bed. RN attempted to reorient patient to her surroundings but patient kept yelling and disrupting RN saying ?I need to get out of here, I need to get out of here?. RN made multiple attempts to reorient patient and educate her on patient safety and that she has been too weak to stand. Pt refused to listen to RN and yelled at RN to ?stop touching me, get your hands off me? whenever assistance was provided. RN allowed pt to sit herself up on the side of the bed without assistance. At this time, Emily- supervisor in charge came in to assist. We stood near patient while she sat on the side of the bed for her safety while she kept yelling at us to move. We made multiple attempts to re-educate patient on her safety and her behavioral contract but patient continued to be interruptive and argumentative. She then started to remove her heart monitor, pulse oximeter and supplemental O2 again. RN tried to educate patient on the necessity of supplemental O2 and monitoring equipment but patient refused to listen. After 30 minutes, pt wanted to be laid back down in bed but insisted that staff lift her and slide her up. Since patient was sitting on the bottom edge of the bed, the hover mat was not underneath her and she had no room to move back into the bed, so the ceiling lift was the only option. After multiple re-education and pt arguments, we successfully got her into the ceiling lift with [facility] staff while she continued to yell at us and call us ?white bitches? threatening ?I?m going to leandra your ass?. Pt would attempt to slide herself out of the sling and grab/hit at staff unsuccessfully. After she was repositioned back into the bed, Dr. Constantino and Accounting Policy Consultant entered the room to try and calm patient down. Dr. Francois gave a verbal order for 1x IV Ativan at 2230 d/t patient agitation & belligerent behavior. He also suggested we strongly try to get pt to tolerate BiPAP in increments of 15 minutes to 30 minutes. At 223, we were able to apply BiPAP without pt resisting care. She kept it on for a total of 5 minutes and removed it herself at 2240, refusing to have it re-applied. ? Other than this event, pt has been alert & oriented and afebrile. VSS with exception to O2 sats dropping down into the low 80s-high 70s with movement & activity. PIV in right AC is SL and C/D/I. We were able to complete her sacral wound dressing change at 1900 with pt compliance. Ongoing c/o chronic back pain and bilateral leg pain. Gutierrez patent & draining.
[2024-03-03 06:43] LABS: HCO3 VBG 35 mmol/L (21-28); PO2 VBG 51.4 mmHG (25-47); pH VBG 7.366 (7.32-7.43)
[2024-03-03 06:45] LABS: PCO2 VBG 61 mmHG (40-50)
[2024-03-03 06:52] LABS: Basophils Absolute Auto 0.03 K/uL (0.00-0.30); Basophils Percent Auto 0.6 % (0.0-3.0); Eosinophils Absolute Auto 0.21 K/uL (0.00-0.50); Hematocrit 32.6 % (33.0-51.0); Hemoglobin* 9.9 gm/dL (12.0-16.0); Immature Granulocytes Abs Auto 0.03 K/uL (0.00-0.30); Immature Granulocytes Pct Auto 0.6 %; Lymphocytes Percent Auto 15.9 % (20-44); Mean Corpuscular HGB Conc 30 gm/dL (32-36); Mean Corpuscular Hemoglobin 29 pg (26-34); Mean Corpuscular Volume 95 fL (80-100); Monocytes Percent Auto 9.6 % (0.0-11.0); Neutrophils Absolute Auto 3.63 K/uL (1.7-7.0); Neutrophils Percent Auto 69.3 % (42.0-72.0); Platelet Count* 201 K/uL (140-440); RDW Coefficient of Variation % 13.1 % (11.5-15.5); Red Blood Count 3.43 m/uL (4.00-5.20); White Blood Count* 5.23 K/uL (4.50-11.00)
[2024-03-03 06:54] LABS: Slide Review Reflex No
[2024-03-03 07:33] LABS: Chloride* 102 mmol/L (96-114); Potassium* 4.1 mmol/L (3.6-5.1); Sodium* 141 mmol/L (135-149)
[2024-03-03 07:35] LABS: Est. Creatinine Clearance* 45.85; Estimated Glomerular Filt Rate 61 ml/min
[2024-03-03 07:36] LABS: Anion Gap 4 mEq/L (7-15); Carbon Dioxide* 35 mmol/L (20-32)
[2024-03-03 07:37] LABS: Blood Urea Nitrogen* 21 mg/dL (7-30); Glucose* 101 mg/dL (60-115); Magnesium* 2.1 mg/dL (1.5-2.6)
[2024-03-03 07:39] LABS: C Reactive Protein* 6.1 mg/dL (0.5-1.0)
--- NOTE | 2024-03-03 08:42 | PC.NURSE ---
Pt at 0500 stated she was having trouble breathing. Explained to her that she needed to try the mask(BiPAP) She willingly did for 10min and then kept on for anothetr 15min. Was off for 30min and then she was struggling to breath and wanted it on again. Put on and kept on till 0745,
[2024-03-03] MEDS: LACTOBACILLUS ACIDOPHILUS 1 TABLET 1 TAB PO (09:36)
[2024-03-03] MEDS: METOPROLOL SUCCINATE (XL) 50 MG TAB PO (09:36)
[2024-03-03] MEDS: OMEPRAZOLE 20 MG CAPSULE DR PO (09:37)
[2024-03-03] MEDS: POTASSIUM CHLORIDE 10 MEQ CAPSULE ER 20 MEQ PO (09:37)
[2024-03-03] MEDS: DULOXETINE 30 MG CAPSULE DR 60 MG PO (09:38)
[2024-03-03] MEDS: FERROUS SULFATE 325 MG TABLET PO (09:38)
[2024-03-03] MEDS: TORSEMIDE 20 MG TABLET 40 MG PO ×2 (09:38→21:11)
[2024-03-03] MEDS: SPIRONOLACTONE 25 MG TABLET PO (09:39)
[2024-03-03] MEDS: NYSTATIN POWDER 1 APPLIC TOPICAL (09:40)
[2024-03-03] MEDS: SODIUM CHLORIDE 0.9 % (FLUSH) 10 ML SYRINGE 5 ML IVF (09:40)
[2024-03-03] MEDS: LIDOCAINE 5% PATCH 1 PATCH TRANSDERMA (09:41)
[2024-03-03] MEDS: LIDOCAINE 5% PATCH 2 PATCH TRANSDERMA (09:43)
[2024-03-03] MEDS: CELECOXIB 100 MG CAPSULE PO (10:42)
--- NOTE | 2024-03-03 11:07 | REH.PT ---
PT order received. PT on hold due to medical status. Will check back after Sx
--- NOTE | 2024-03-03 13:24 | PM.IMPN1 ---
Progress Note: A&P Assessment and plan (1) Acute respiratory failure: Problem details: Event occurred March 02 during the biological science aide hours. Appears to be primarily hypoventilation with both hypoxia and hypercarbia associated with decreased mental status. Due to a combination of factors: Almost certainly has chronic obesity hypoventilation and sleep apnea. She has not been willing or able to consider evaluation or treatment of this in the past. She has new heart failure. Not previously had this diagnosis. She has been on furosemide as an outpatient but has told me she has discontinued it. She also received buprenorphine in attempt to address her severe pain. As with her hospitalization in September 2023 it was felt that this would be a safer approach to managing her severe back and left knee pain and allowed nurses to provide cares for her and repositioning without her crying out in pain. This may have contributed to her sedation leading to her hypoventilation. Status: Acute (2) Acute diastolic CHF (congestive heart failure): Problem details: Echocardiogram on 03/02/2024 shows preserved ejection fraction and no obvious valvular disease and no obvious wall motion abnormality. Continue aggressive diuresis and work towards appropriate medical therapy for heart failure preserved ejection fraction. Status: Acute (3) Obesity hypoventilation syndrome: Problem details: This is likely with elevated pCO2 and bicarbonate. She would benefit from sleep study and CPAP or BiPAP. Not currently cooperative with this treatment Status: Acute (4) Anxiety: Problem details: Has a longstanding history of significant anxiety that interferes with her ability to cooperate with plan of care. Previously had been on Ativan but she is a high risk for complications from this with her respiratory depression. Continue duloxetine. Status: Chronic (5) Morbid obesity: Problem details: - chronic with BMI 58 - weight on discharge in 06/05 was 111.7kg; 137 on admission 10/02/23; 131.5 kg today, 02/29/2024. - unclear what her weight was upon leaving [facility] - Nutrition consult. 1500 calorie diet Likely has obesity hypoventilation syndrome Status: Chronic (6) Osteoarthritis: Problem details: Patient reports severe back and knee pain which has been disabling for her. Clearly her hypoventilation respiratory failure is a relative contraindication to opioid therapy at this time. Continue other modalities for pain management. Status: Acute (7) Adult failure to thrive: Problem details: Failing when living at home. Doing better when cared for in group home facility or hospital. Status: Acute (8) Ulcer of sacral region, stage 4: Problem details: - hospitalized for this in 06/05, improved 09/2023, patient and partner reported prior resolution. Now stage 4 again 02/29/24. Previously has refused surgery and debridement. Currently general surgery feels she is not needing surgery. If she did need surgery would require surgical ICU care. Medical management with offloading pressure is primary treatment at this time. Good wound care and skin care surrounding this also important. At home she primarily is in a recliner and not able to affectively offload. Status: Acute (9) Discharge planning issues: Problem details: Needs retirement. Work with social work coordinator and the [facility] to make a disposition plan. May need guardianship from the [facility]. Status: Acute (10) Chronic pain: Problem details: Previously on opioids than buprenorphine. Most recently just on Tylenol at home. Poor candidate for opioid therapy. Will try low-dose NSAIDs and reconsider buprenorphine. Will try low-dose oxycodone, only during the day, before she receives cares or is being transferred bed to chair. Status: Acute (11) Chronic acquired lymphedema: Problem details: Chronic bilateral lower extremity lymphedema. Compression and elevation if she will tolerated. Monitor left leg for cellulitis Status: Chronic Plan Continue in hospital for ongoing management of heart failure and addressing other chronic medical problems and arranging for safe discharge plan. Will transfer from CCU to same day surgery center status today as her respiratory failure appears better Time Spent With Patient Total time spent: Total time spent today is 60 minutes, 50 minutes in coordination of care and discussing with patient family and other providers ongoing evaluation management of respiratory failure, heart failure, disability and pain. Subjective Date Seen: 03/03/24 Interval history: Gracia Louise is a 68-year-old female with stage IV sacral ulcer, chronic back and left knee pain and morbid obesity who is admitted through the emergency department with severe left knee pain and inability to care for herself. She was seen in our emergency department on February 24, February 26 and yesterday February 28 for her back pain and knee pain. Yesterday she was unable to stand to transfer and was admitted to the hospital for plan of care. Gracia has been struggling to live independently at home over the last couple weeks. Prior to that she has been in a hospital or retirement since 05/14/2023. May 14 to 06/02/2023 she was hospitalized here for COVID infection as well as a groin cellulitis and UTI. She was found to be profoundly weak and unable to care for herself so she was sent to a group home facility in [place] until 10/01/2023. She discharged herself from there against medical advice and came to our emergency room 10/02/2023. Again seen to be unable to care for herself so she was hospitalized here until 10/12/2023. She was discharged to a group home facility in [facility]. She discharged herself from that nursing facility and was admitted to [facility] on Oct 13 2023. She was hospitalized there through 10/22/2023 and discharged to another group home facility. She remained there until about 2 weeks ago by her report. She discharged herself against medical advice to home. Patient has done well when she is state in a retirement for months getting appropriate repositioning and skin care and wound care and therapy. She has not however gotten to the point where the therapists and medical providers in the retirement felt she was going to be successful living independently. At home she has been struggling. She can no longer transfer herself from bed to chair. She reports the primary problem is is that her back in her low left leg hurt too much. She can not roll over in bed for wound care and to take pressure off of her decubitus ulcer. She cannot take care of her skin breakdown and skin infections in her skin folds. She contacted her primary care doctor to arrange for an EZ stand the day prior to admission. She has been in our emergency department 3 times in the last 5 days because of her inability to manage her pain and mobility and self cares at home. She has not had a recent illness with cough, fever, sore throat, chest pain, unusual dyspnea, abdominal pain, nausea, vomiting, diarrhea. She is incontinent of urine possibly because she is immobile. Radiographs of her left knee including plain films and CT show fairly severe degenerative changes 03/02/2024: Overnight ON-CALL: Ratna, nursing staff contacted me after the patient was hypoxic. At 1 point she was in the 50s. With oxygen intervention she remained in the 70s and 80s. ABG was obtained, pH was 7.25, pO2 was 82 and pCO2 was 68. Bicarb level was in the 30s. Chest x-ray was obtained which showed low lung volumes and pulmonary vascular congestion. Upon clinical exam the patient appeared to be in respiratory distress. She was placed on BiPAP and essentially after a few minutes, she was able to come up to 100% saturation. Unfortunately the patient refused to have any mask on her face. She requested the BiPAP off. We placed her on a 15 L nonrebreather which continue to maintain her saturation above 95% however again the patient refused to keep the mask on. Will replace the nasal cannula on, her oxygen levels dipped into the 80s. My assumption is, that this patient has a combination of mild congestive heart failure with superimposed obesity hypoventilation syndrome. This is based on the fact the patient is morbidly obese with a BMI greater than 50, her bicarb level greater than 30 with a pCO2 of 68, my assumption is that she has chronic hypoventilation and this has been going on for some time. She responded very quickly to BiPAP which is a reassuring issue. Her body habitus is also an issue given the low lung volumes. I started the patient on IV Lasix, and we tried to have her on BiPAP but the patient refused. I did provide her Ativan due to agitation and nursing staff will attempt to put her on BiPAP again if she is willing. She remains a full code and I requested her to speak to the primary team in the a.m. if she plans to change this. At this time she still wants to be full code. 03/02/2024 CRITICAL CARE: Patient is seen in the morning and arouses to voice. She remains mildly hypoxic and hypercarbic. Appears to have some increased work of breathing. Is resisting attempts to provide supplemental oxygen or monitoring with end-tidal CO2, oximetry, cardiac monitoring, blood pressure monitoring. She is intermittently confused and disoriented. At other times is able to carry on a conversation and follow instructions. 03/03/2024: Patient reports significant pain with any repositioning, transfer to chair, touching her left leg, blood pressure cuff squeezing her forearm. She thinks her breathing is a little bit better. Briefly used BiPAP this morning while sleeping. Otherwise refusing. We reviewed her code status. I noted that her prognosis with CPR and/or intubation would be very poor. I noted the most likely outcome of cardia respiratory arrest would be her though aggressive intervention might delay that outcome. She continues to request full resuscitation for cardiac and respiratory arrest. She also reports to me today that she would like her 3 children to be co-power of immigration attorney. The county is proceeding with emergency guardianship for her. Exam Narrative: Exam Narrative: She is alert and appears with mild increased work of breathing. She is oriented to her circumstances and able to carry on conversation about recent events and care plan. She is seen with her son, Bhargav and her friend, Alex. Respirations with few basilar crackles. Fair air exchange all lung may. Cardiovascular: Distant S1, S2, regular rate and rhythm. Abdomen: Bowel sounds active. No significant tenderness. Lower extremities examined. She has mild erythema and fairly severe cobblestone induration over her left leg consistent with her lymphedema. She poorly tolerates examination of the skin folds behind her knee. There is some increased erythema there. She poorly tolerates this examination. Const: Vital Signs, click to edit/add: Vital Signs - 24 hr 03/02/24 13:27 03/02/24 13:30 03/02/24 14:00 Temperature Pulse Rate 90 78 Pulse Rate [Pulse Oximeter] Pulse Rate [Right] Respiratory Rate 22 17 14 Blood Pressure Blood Pressure [Le ft Arm] Blood Pressure [Ri ght forearm] Pulse Oximetry 82 L 87 L 88 Oxygen Delivery Me thod Room Air Oxygen Flow Rate 03/02/24 14:03 03/02/24 15:00 03/02/24 15:00 Temperature Pulse Rate 80 Pulse Rate [Pulse Oximeter] 92 Pulse Rate [Right] Respiratory Rate 17 26 H 20 Blood Pressure 150/76 H Blood Pressure [Le ft Arm] Blood Pressure [Ri ght forearm] Pulse Oximetry 90 92 Oxygen Delivery Me thod Nasal Cannula Oxygen Flow Rate 1 03/02/24 16:00 03/02/24 17:40 03/02/24 18:00 Temperature 96.7 F L 97.5 F L Pulse Rate 88 Pulse Rate [Pulse Oximeter] 90 92 Pulse Rate [Right] Respiratory Rate 21 20 Blood Pressure Blood Pressure [Le ft Arm] Blood Pressure [Ri ght forearm] 119/62 101/52 L Pulse Oximetry 90 93 Oxygen Delivery Me thod Nasal Cannula Nasal Cannula Oxygen Flow Rate 1 1 03/02/24 19:00 03/02/24 19:00 03/02/24 20:06 Temperature 97.6 F Pulse Rate 89 Pulse Rate [Pulse Oximeter] 88 88 Pulse Rate [Right] Respiratory Rate 19 19 Blood Pressure Blood Pressure [Le ft Arm] 102/66 Blood Pressure [Ri ght forearm] Pulse Oximetry 95 Oxygen Delivery Me thod Nasal Cannula Oxygen Flow Rate 1 03/02/24 22:56 03/03/24 00:33 03/03/24 00:39 Temperature 97.6 F Pulse Rate Pulse Rate [Pulse Oximeter] 84 Pulse Rate [Right] 80 Respiratory Rate 18 18 Blood Pressure Blood Pressure [Le ft Arm] 128/78 Blood Pressure [Ri ght forearm] Pulse Oximetry 84 L Oxygen Delivery Me thod Room Air Room Air Oxygen Flow Rate 03/03/24 03:58 03/03/24 07:00 03/03/24 07:00 Temperature 97.6 F 97 F L Pulse Rate Pulse Rate [Pulse Oximeter] 97 Pulse Rate [Right] 79 89 Respiratory Rate 24 22 22 Blood Pressure Blood Pressure [Le ft Arm] 116/57 L Blood Pressure [Ri ght forearm] 188/113 H Pulse Oximetry 82 L 94 91 Oxygen Delivery Me thod Room Air Room Air Room Air Oxygen Flow Rate 1 03/03/24 09:00 Temperature Pulse Rate Pulse Rate [Pulse Oximeter] Pulse Rate [Right] Respiratory Rate Blood Pressure Blood Pressure [Le ft Arm] Blood Pressure [Ri ght forearm] Pulse Oximetry 91 Oxygen Delivery Me thod Oxygen Flow Rate Documenting provider has reviewed patient's vital signs: yes Labs Labs: Laboratory Results - last 24 hr 03/03/24 06:05 WBC 5.23 RBC 3.43 L Hgb 9.9 L Hct 32.6 L MCV 95 MCH 29 MCHC 30 L RDW Coeff of Vilma 13.1 Plt Count 201 Neut % (Auto) 69.3 Lymph % (Auto) 15.9 L Vance % (Auto) 9.6 Eos % (Auto) 4.0 Baso % (Auto) 0.6 Neut # (Auto) 3.63 Lymph # (Auto) 0.80 L Vance # (Auto) 0.50 Eos # (Auto) 0.21 Baso # (Auto) 0.03 Abs Immat Gran (auto) 0.03 Imm/Tot Granulo (auto) 0.6 VBG pH 7.366 VBG pCO2 61 H* VBG pO2 51.4 H VBG HCO3 35 H Sodium 141 Potassium 4.1 Chloride 102 Carbon Dioxide 35 H Anion Gap 4 L BUN 21 Creatinine 1.0 Estimated Creat Clear 45.85 Estimated GFR 61 Glucose 101 Calcium 9.0 Magnesium 2.1 C-Reactive Protein 6.1 H
--- NOTE | 2024-03-03 13:56 | PC.SOCIAL ---
SOCIAL WORK: [facility] has appointed an Emergency Guardian for pt. This social workers served pt with the court paperwork today. Pt's son and partner were in the room when pt was provided with this information. Pt's first court hearing will be on 03/07/24 at 8:30am by zoom. Pt will be assisted to connect to this meeting if she is still in the hospital on Wednesday morning. The information on how to connect to the court hearing is in pt's chart. The Emergency guardian information follows: FRANSISCO Liz Social Work-Guardian [address] [place] [id number] Office: [phone] E-mail:?[email or web address] After Hours Guardianship Crisis Line: [phone] If pt or family have questions on guardian or the court process, they can reach out to the emergency guardian or to Omayra Gonzalez at [facility] Vulnerable Adult office at [phone]. Pt and family have been provided with contact information on the guardian and Omayra Gonzalez.
--- NOTE | 2024-03-03 15:02 | PC.SOCIAL ---
Discharge planning: Spoke with pt's Emergency Guardian, Aliyah Henson, who requested SNF placement in any of the following facilities if possible: -Layla Cabezas [facility]- [place], [place] -[facility]- [place], [place] -[facility] [place] [place] [facility] [place] [place] viscose department worker to follow up as needed.
[2024-03-03] MEDS: OXYCODONE 5 MG TABLET PO (15:23)
--- NOTE | 2024-03-03 15:24 | PC.NURSE ---
Patient during cares for patient, she started to yell and swear at the nursing staff. It was also reported that she swatted at a staff member. Patient has a special care plan in her chart for history of escalating behaviors [facility] staff here. Patients care plan had been reviewed with her along with her goals for care. She is aware that the [facility] has a zero tolerance policy for workplace violence. Patient agreed to stop yelling and threatening at the staff. Her son and partner were also in the room and agreed and reinforced the message to the patient. A plan of care was written as a reminder on the board in her room. Staff will respect her wishes about only one talking at a time, and will give her time frames for cares and moving. All parties in agreement.
[2024-03-03] MEDS: ONDANSETRON 2 MG/ML inj 4 MG IVP (17:29)
--- NOTE | 2024-03-03 19:22 | PC.NURSE ---
Patient on Room air this shift. Oxygen saturations maintained above 88%. Pt complained of Shortness of breath throughout the shift. Attempt to get patient to stand with easy stand was unsuccessful. Due to patient's increased weakness, plan going forward will be to use the ceiling lift. Patient was able to get up to the chair the ceiling lift. With cares and transfers, patient yells out and is belligerent to staff. Reluctant to partake in any type of movement. Refused to turn and reposition frequently throughout the shift. Refused morning wound dressing change. Pt was given oxycodone this evening in attempt to pre-medicate prior to dressing change. After receiving the oxycodone, patient became nauseated. This was believed to be due to patient having very little in her stomach due to poor appetite.
[2024-03-03] MEDS: ENOXAPARIN 40 MG/0.4 ML INJ SUBCUT (21:11)
[2024-03-04] VITALS (9 sets, daily range): BP systolic 98–140; BP diastolic 47–72; PULSE 74–82; RESP 20–22; TEMP 36.4; O2SAT 88–92
[2024-03-04] MEDS: LIDOCAINE 5% PATCH 1 PATCH TRANSDERMA (06:10)
--- NOTE | 2024-03-04 06:33 | PC.NURSE ---
Shift note: Pt screams in pain throughout the night, however refusing pain medications, RN offered continuously during this shift. Pt states she'll quit breathing, explanations of BiPAP purpose was not comprehended. Elevated voice during cares was addressed each time care team was in the room, comprehension not shown. Boundaries explained with each visit.
[2024-03-04 06:45] LABS: Basophils Absolute Auto 0.02 K/uL (0.00-0.30); Basophils Percent Auto 0.3 % (0.0-3.0); Eosinophils Absolute Auto 0.24 K/uL (0.00-0.50); Eosinophils Percent Auto 3.5 % (0.0-7.0); Hematocrit 32.9 % (33.0-51.0); Immature Granulocytes Pct Auto 1.5 %; Lymphocytes Percent Auto 12.7 % (20-44); Mean Corpuscular HGB Conc 30 gm/dL (32-36); Mean Corpuscular Hemoglobin 28 pg (26-34); Mean Corpuscular Volume 93 fL (80-100); Monocytes Percent Auto 9.2 % (0.0-11.0); Neutrophils Percent Auto 72.8 % (42.0-72.0); Platelet Count* 209 K/uL (140-440); RDW Coefficient of Variation % 13.4 % (11.5-15.5); Red Blood Count 3.55 m/uL (4.00-5.20); White Blood Count* 6.85 K/uL (4.50-11.00)
[2024-03-04 06:50] LABS: HCO3 VBG 36 mmol/L (21-28); PCO2 VBG 54 mmHG (40-50); PO2 VBG 54.8 mmHG (25-47); pH VBG 7.437 (7.32-7.43)
[2024-03-04 07:02] LABS: Slide Review Reflex No
[2024-03-04 07:14] LABS: Albumin* 3.7 g/dL (3.3-5.0); Chloride* 97 mmol/L (96-114); Sodium* 139 mmol/L (135-149)
[2024-03-04 07:15] LABS: Potassium* 3.6 mmol/L (3.6-5.1)
[2024-03-04 07:17] LABS: Anion Gap 6 mEq/L (7-15); Aspartate Amino Transferase* 21 U/L (12-35); Bilirubin Direct* 0.3 mg/dL (0.0-0.5); Bilirubin Total* 0.3 mg/dL (0.1-1.5); Carbon Dioxide* 36 mmol/L (20-32); Creatinine* 1.1 mg/dL (0.5-1.5); Est. Creatinine Clearance* 41.68; Estimated Glomerular Filt Rate 54 ml/min; Total Protein* 7.3 g/dL (6.0-8.3)
[2024-03-04 07:18] LABS: Alanine Aminotransferase* 10 U/L (4-35); Alkaline Phosphatase* 78 U/L (40-150); Blood Urea Nitrogen* 18 mg/dL (7-30); Calcium* 8.8 mg/dL (8.4-10.6); Glucose* 103 mg/dL (60-115)
[2024-03-04 07:20] LABS: C Reactive Protein* 5.9 mg/dL (0.5-1.0)
--- NOTE | 2024-03-04 09:29 | P.IMPN_ITS ---
Progress Note: A&P Assessment and plan (1) Adult failure to thrive: Problem details: - Failing when living at home; requires SNF level care for wound/skin care, therapies Status: Acute (2) Ulcer of sacral region, stage 4: Problem details: - hospitalized for this in 06/05, improved 09/2023, patient and partner reported prior resolution - as of 02/2024, stage 4 again - historically has refused surgery and debridement; currently general surgery does not feel surgery is needed. If she did need surgery would require surgical ICU care. - medical management, offloading pressure is primary treatment at this time, in addition to wound and skin care Status: Acute (3) Metabolic alkalosis: Problem details: - likely 2/2 diuresis - 03/03: decrease Torsemide from 40mg BID --> 20mg BID, continue Spironolactone - continue to follow output, weight, oxygenation Status: Acute (4) Acute respiratory failure: Problem details: - noted after admission (03/02) overnight, primarily hypoventilation with both hypoxia and hypercarbia associated with AMS - likely combination of LAKEISHA, OHS, HFpEF - currently improved, has BIPAP available if needed (typically refuses) Status: Acute (5) Acute diastolic CHF (congestive heart failure): Problem details: - HFpEF with formal TTE results below (03/02/24), no obvious valvular disease or wall motion abnormality - continue diuresis, add GDMT as tolerated Limited Echocardiogram performed 1. Technically limited exam. 2. Normal LV size, not well visualized wall thickness (~upper lmit of normal- mildly increased), normal global systolic function with an estimated EF of 60 - 65%. 3. Right ventricle is not well visualized. It appears normal in limited views. 4. No significant valve disease detected. Status: Acute (6) Obesity hypoventilation syndrome: Problem details: - likely given habitus, elevated pCO2, elevated bicarbonate. Would benefit from sleep study, CPAP/BIPAP if willing Status: Acute (7) Anxiety: Problem details: - long history of this, continue duloxetine; previously on Lorazepam (not continuing given high risk of complications) Status: Chronic (8) Morbid obesity: Problem details: - chronic with BMI 58 - weight on discharge in 06/05 was 111.7kg; 137 on admission 10/02/23; 131.5 kg today, 02/29/2024. - unclear what her weight was upon leaving [facility] - Nutrition consult. 1500 calorie diet Likely has obesity hypoventilation syndrome Status: Chronic (9) Osteoarthritis: Problem details: - longstanding, severe back and knee pain which has been disabling for her, working with therapies and continue to provide non-opiate pain management Status: Acute (10) Discharge planning issues: Problem details: - appreciate assistance from therapy teams and SW; emergency guardianship per [facility] obtained 03/03/24 Status: Acute (11) Chronic pain: Problem details: - previously on opioids, then buprenorphine - high risk for respiratory complications, has order for low dose Oxycodone during the day prior to cares Status: Acute (12) Chronic acquired lymphedema: Problem details: - chronic, bilateral; compression and elevation if she will tolerate Status: Chronic Plan - per above - Lovenox for ppx Subjective Date Seen: 03/04/24 Interval history: Gracia Louise is a 68-year-old female with stage IV sacral ulcer, chronic back/left knee pain, BLE lymphedema and LLE cellulitis, and morbid obesity, admitted to the hospital on 02/28 for failure to thrive/ambulate at home. She has been in and out of hospitals/SNFs since 05/2023, with less than one month at home since then. No current evidence of acute infectious process with her chronic wounds, not currently on antibiotic therapy. Notable findings since admission: 03/02: acute hypoxic respiratory failure with acidosis and hypercarbia, placed on BIPAP and given Lasix for presumed fluid overload, intermittently confused 03/03: improving mentation and breathing, TTE reveals HFpEF. 03/03: Emergency guardianship through [facility] given patient's multiple hospitalizations and SNF stays, inability to safely care for self at home Gracia has intermittently noted agitation/pain with cares. Today, she notes that she feels badly about yelling, but has a hard time managing pain emotionally. She understands the need for SNF placement and inability to care for self at home. Only concern for hospitalist team today is nasal stuffiness; requesting Flonase. Exam Narrative: Exam Narrative: GEN: Alert and awake, laying in bed HEENT: No scleral icterus or conjunctival pallor, poor dentition CV: RRR, No concerning murmurs R: No wheezing, decreased bilateral bases, exam limited by body habitus Ext: Edema BLE, LLE has skin maceration posteriorly without any active bleeding or drainage, thickened skin over LE distally Skin: Scattered bruising over upper extremities, L>R, various stages of healing Neuro: No focal deficits on limited exam, no resting tremor Psych: Appropriate, no agitation during my visit. Calmly tells me that she doesn't like when she yells at staff Const: Vital Signs, click to edit/add: Vital Signs - 24 hr 03/03/24 12:00 03/03/24 12:53 03/03/24 13:00 Temperature Pulse Rate 74 73 Pulse Rate [Pulse Oximeter] 97 Pulse Rate [Right] 89 Respiratory Rate 24 Blood Pressure 157/66 H Blood Pressure [Le ft Arm] Pulse Oximetry 88 [facility] 03/03/24 14:00 03/03/24 15:00 03/03/24 17:00 Temperature Pulse Rate 87 Pulse Rate [Pulse Oximeter] 97 Pulse Rate [Right] 89 Respiratory Rate 24 20 Blood Pressure Blood Pressure [Le ft Arm] Pulse Oximetry 91 91 [facility] 03/03/24 21:21 03/03/24 21:21 03/03/24 23:00 Temperature 97.8 F Pulse Rate Pulse Rate [Pulse Oximeter] 80 Pulse Rate [Right] 79 Respiratory Rate 20 20 Blood Pressure Blood Pressure [Le ft Arm] 144/83 H Pulse Oximetry 88 89 Oxygen Delivery [facility] Room Air Room Air 03/03/24 23:30 03/04/24 02:44 03/04/24 07:25 Temperature Pulse Rate Pulse Rate [Pulse Oximeter] Pulse Rate [Right] 79 Respiratory Rate 20 20 Blood Pressure Blood Pressure [Le ft Arm] Pulse Oximetry 88 89 [facility] Room Air Labs Labs: Laboratory Results - last 24 hr 03/04/24 06:30 WBC 6.85 RBC 3.55 L Hgb 10.0 L Hct 32.9 L MCV 93 MCH 28 MCHC 30 L RDW Coeff of Vilma 13.4 Plt Count 209 Neut % (Auto) 72.8 H Lymph % (Auto) 12.7 L [place] % (Auto) 9.2 Eos % (Auto) 3.5 Baso % (Auto) 0.3 Neut # (Auto) 5.00 Lymph # (Auto) 0.90 [place] # (Auto) 0.60 Eos # (Auto) 0.24 Baso # (Auto) 0.02 Abs Immat Gran (auto) 0.10 Imm/Tot Granulo (auto) 1.5 VBG pH 7.437 H VBG pCO2 54 H VBG pO2 54.8 H VBG HCO3 36 H Sodium 139 Potassium 3.6 Chloride 97 Carbon Dioxide 36 H Anion Gap 6 L BUN 18 Creatinine 1.1 Estimated Creat Clear 41.68 Estimated GFR 54 Glucose 103 Calcium 8.8 Total Bilirubin 0.3 Direct Bilirubin 0.3 AST 21 ALT 10 Alkaline Phosphatase 78 C-Reactive Protein 5.9 H Total Protein 7.3 Albumin 3.7
[2024-03-04] MEDS: OMEPRAZOLE 20 MG CAPSULE DR PO (09:38)
[2024-03-04] MEDS: POTASSIUM CHLORIDE 10 MEQ CAPSULE ER 20 MEQ PO (11:03)
[2024-03-04] MEDS: CELECOXIB 100 MG CAPSULE PO (11:03)
[2024-03-04] MEDS: METOPROLOL SUCCINATE (XL) 50 MG TAB PO (11:04)
[2024-03-04] MEDS: TORSEMIDE 20 MG TABLET PO ×2 (11:04→21:10)
[2024-03-04] MEDS: FERROUS SULFATE 325 MG TABLET PO (11:04)
[2024-03-04] MEDS: LACTOBACILLUS ACIDOPHILUS 1 TABLET 1 TAB PO (11:05)
[2024-03-04] MEDS: DULOXETINE 30 MG CAPSULE DR 60 MG PO (11:05)
[2024-03-04] MEDS: SPIRONOLACTONE 25 MG TABLET PO (11:07)
[2024-03-04] MEDS: SODIUM CHLORIDE 0.9 % (FLUSH) 10 ML SYRINGE 5 ML IVF ×2 (11:16→21:11)
[2024-03-04] MEDS: ONDANSETRON ODT 4 MG TAB PO (12:52)
[2024-03-04] MEDS: ACETAMINOPHEN 500 MG TABLET 1000 MG PO ×2 (12:52→21:12)
[2024-03-04] MEDS: LIDOCAINE 5% PATCH 2 PATCH TRANSDERMA (12:53)
[2024-03-04] MEDS: OXYCODONE 5 MG TABLET PO (17:57)
--- NOTE | 2024-03-04 19:38 | PC.NURSE ---
Pt between bed and chair with ceiling lift. Pt become anxious and scared with transfers and movement especially in regards to lower left leg. Left lower extremity wrap with KRISTAL per pt request. Discussing plan before action with short simple instructions and direct non-delayed transfers reduced time for anxiousness and loud voices. Once pt is settled in and sling is removed pt is able to speak in more relaxed rational tone. Educated on medications and importance of food intake to reduce upset stomach. Pt was open to ordering small meals to reduce feelings of nausea. Pt thankful and pleasant at end of shift stating she hoped story writer would be back next day and to have a nice night.
[2024-03-04] MEDS: ENOXAPARIN 40 MG/0.4 ML INJ SUBCUT (21:10)
[2024-03-04] MEDS: NYSTATIN POWDER 1 APPLIC TOPICAL (21:11)
[2024-03-04] MEDS: HYDROCORTISONE 1 % CREAM 1 APPLIC TOPICAL (21:11)
[2024-03-05] MEDS: ACETAMINOPHEN 500 MG TABLET 1000 MG PO ×2 (05:54→12:32)
[2024-03-05 06:00] VITALS: RESP 20
[2024-03-05 06:59] LABS: Basophils Absolute Auto 0.02 K/uL (0.00-0.30); Basophils Percent Auto 0.3 % (0.0-3.0); Eosinophils Absolute Auto 0.25 K/uL (0.00-0.50); Eosinophils Percent Auto 4.1 % (0.0-7.0); Hematocrit 34.2 % (33.0-51.0); Hemoglobin* 10.3 gm/dL (12.0-16.0); Immature Granulocytes Abs Auto 0.07 K/uL (0.00-0.30); Immature Granulocytes Pct Auto 1.2 %; Mean Corpuscular HGB Conc 30 gm/dL (32-36); Mean Corpuscular Hemoglobin 28 pg (26-34); Mean Corpuscular Volume 93 fL (80-100); Monocytes Percent Auto 10.4 % (0.0-11.0); Neutrophils Absolute Auto 4.14 K/uL (1.7-7.0); Platelet Count* 197 K/uL (140-440); RDW Coefficient of Variation % 13.5 % (11.5-15.5); Red Blood Count 3.66 m/uL (4.00-5.20); White Blood Count* 6.08 K/uL (4.50-11.00)
[2024-03-05 07:09] LABS: HCO3 VBG 37 mmol/L (21-28); PCO2 VBG 60 mmHG (40-50); PO2 VBG 33.9 mmHG (25-47); pH VBG 7.397 (7.32-7.43)
--- NOTE | 2024-03-05 07:17 | P.IMPN_ITS ---
Progress Note: A&P Assessment and plan (1) Adult failure to thrive: Problem details: - Failing when living at home; requires SNF level care for wound/skin care, therapies - amenable to SNF stay when bed available Status: Acute (2) Ulcer of sacral region, stage 4: Problem details: - hospitalized for this in 06/05, improved 09/2023, patient and partner reported prior resolution - as of 02/2024, stage 4 again - historically has refused surgery and debridement; currently general surgery does not feel surgery is needed. If she did need surgery would require surgical ICU care. - medical management, offloading pressure is primary treatment at this time, in addition to wound and skin care Status: Acute (3) Metabolic alkalosis: Problem details: - noted on 03/04, likely 2/2 diuresis - 03/04: decreased Torsemide from 40mg BID --> 20mg BID, continue Spironolactone - 03/05: VBG has normalized, continue current medications and monitor Status: Acute (4) Acute respiratory failure: Problem details: - noted after admission (03/02) overnight, primarily hypoventilation with both hypoxia and hypercarbia associated with AMS - likely combination of LAKEISHA, OHS, HFpEF - currently improved, has BIPAP available if needed and tolerated Status: Acute (5) Acute diastolic CHF (congestive heart failure): Problem details: - HFpEF with formal TTE results below (03/02/24), no obvious valvular disease or wall motion abnormality - continue diuresis, titrate GDMT as tolerated Limited Echocardiogram performed 1. Technically limited exam. 2. Normal LV size, not well visualized wall thickness (~upper limit of normal- mildly increased), normal global systolic function with an estimated EF of 60 - 65%. 3. Right ventricle is not well visualized. It appears normal in limited views. 4. No significant valve disease detected. Status: Acute (6) Obesity hypoventilation syndrome: Problem details: - likely given habitus, elevated pCO2, elevated bicarbonate. Would benefit from sleep study, CPAP/BIPAP if willing Status: Acute (7) Anxiety: Problem details: - long history of this, continue duloxetine; previously on Lorazepam (not continuing given high risk of complications) Status: Chronic (8) Morbid obesity: Problem details: - chronic with BMI 58 - weight on discharge in 06/05 was 111.7kg; 137 on admission 10/02/23; 131.5 kg today, 02/29/2024. - unclear what her weight was upon leaving [facility] - Nutrition consult. 1500 calorie diet Likely has obesity hypoventilation syndrome Status: Chronic (9) Osteoarthritis: Problem details: - longstanding, severe back and knee pain which has been disabling for her, working with therapies and continue to provide non-opiate pain management Status: Acute (10) Discharge planning issues: Problem details: - appreciate assistance from therapy teams and SW; emergency guardianship per [facility] obtained 03/03/24 Status: Acute (11) Chronic pain: Problem details: - previously on opioids, then buprenorphine - high risk for respiratory complications, has order for low dose Oxycodone during the day prior to cares prn Status: Acute (12) Chronic acquired lymphedema: Problem details: - chronic, bilateral; compression and elevation if she will tolerate Status: Chronic Subjective Date Seen: 03/05/24 Interval history: Gracia Louise is a 68-year-old female with stage IV sacral ulcer, chronic back/left knee pain, BLE lymphedema and LLE cellulitis, and morbid obesity, admitted to the hospital on 02/28 for failure to thrive/inability to safely ambulate at home. She has been in and out of hospitals/SNFs since COVID infection in May 2023, has been home less than 4 weeks since that time. Notable findings and events since admission: 03/02: acute hypoxic respiratory failure with acidosis and hypercarbia, placed on short course of BIPAP and given Lasix for presumed fluid overload, intermittently confused 03/03: improving mentation and breathing, TTE reveals HFpEF. 03/03: Emergency guardianship through [facility] given patient's multiple hospitalizations and SNF stays, inability to safely care for self at home Throughout stay, Gracia's chronic wounds have been stable, no evidence of acute infection. Continues to diurese well, labs stable/baseline. Working with PT and OT. SNF stay recommended (probably followed by equipment [facility] stay, pending rehab success). Continues to have intermittent pain with cares, using low dose Oxycodone during the day with relief. This morning, she did some self care at the bedside with RN and feels refreshed. She is amenable to SNF placement when bed is found. Exam Narrative: Exam Narrative: GEN: Alert and awake, sitting comfortably in bedside chair HEENT: No scleral icterus or conjunctival pallor, poor dentition without evidence of acute infection CV: RRR, No concerning murmurs R: No wheezing, decreased breath sounds bilateral bases Ext: BLE edema (stable/chronic), thickened skin over LLE, mild skin maceration of posterior LLE without active bleeding Skin: Scattered bruising in various stages of healing. Sacral ulcer not formally examined today given stability per nursing staff Neuro: No focal deficits on limited exam, no resting tremor Psych: Appropriate Const: Vital Signs, click to edit/add: Vital Signs - 24 hr 03/04/24 07:25 03/04/24 09:30 03/04/24 09:30 Temperature 97.5 F L Pulse Rate [Pulse Oximeter] 80 80 Respiratory Rate 22 22 Blood Pressure [Le ft Arm] 140/72 H Blood Pressure [Ri ght forearm] Pulse Oximetry 89 90 Oxygen Delivery [facility] Room Air Room Air 03/04/24 10:00 03/04/24 14:00 03/04/24 15:00 Temperature Pulse Rate [Pulse Oximeter] 81 Respiratory Rate 22 Blood Pressure [Le ft Arm] Blood Pressure [Ri ght forearm] Pulse Oximetry 90 91 Oxygen Delivery [facility] Room Air Room Air 03/04/24 16:00 03/04/24 16:00 03/04/24 20:30 Temperature 97.6 F Pulse Rate [Pulse Oximeter] 74 82 Respiratory Rate 22 20 Blood Pressure [Le ft Arm] Blood Pressure [Ri ght forearm] 98/47 L Pulse Oximetry 90 92 Oxygen Delivery [facility] Room Air Room Air 03/04/24 23:00 03/04/24 23:30 03/05/24 06:00 Temperature Pulse Rate [Pulse Oximeter] Respiratory Rate 20 20 20 Blood Pressure [Le ft Arm] Blood Pressure [Ri ght forearm] Pulse Oximetry Oxygen Delivery [facility] Labs Labs: Laboratory Results - last 24 hr 03/04/24 06:30 Sodium 139 Potassium 3.6 Chloride 97 Carbon Dioxide 36 H Anion Gap 6 L BUN 18 Creatinine 1.1 Estimated Creat Clear 41.68 Estimated GFR 54 Glucose 103 Calcium 8.8 Total Bilirubin 0.3 Direct Bilirubin 0.3 AST 21 ALT 10 Alkaline Phosphatase 78 C-Reactive Protein 5.9 H Total Protein 7.3 Albumin 3.7
--- NOTE | 2024-03-05 07:25 | PC.NURSE ---
: Gutierrez was replaced at 0200 d/t the previous one falling out. Pannus skin folds red, pt cleaned area & feature writer applied nystatin. Pt c/o pain in both bilat posterior knees, skin is raw and weeping, feature writer cleaned with wet wipes as tolerated and placed interdry. Encouraging repositioning, pt frequently states ?I can't? & ?I've tried??with reposition options, therapeutic communication utilized. Pt requested to dangle at bedside, nurse and staff explained to pt that is it not safe to do so. Pt opted to sit in the chair, ceiling lift utilized, pt was in chair for 1hr. Pt repeated ?It hurts! It hurts!? When asked where ?it? is pt stated ?I don?t know! IT! And it didn't hurt this bad before?. Pile Operator offered interventions for back pain & leg pain?? ice, repo, Tylenol, etc. Ice to LLE did not help, pt declined repo.?Pt appeared very fatigued ? despite shouting out in pain, pt was also falling asleep while yelling ?it hurts! it hurts!?. Pt argues with staff, pt stated ?give me something to drink, please, anything!? pt was handed her water to which she replied ?why would you hand me water I want my soda!?. Pt impatient, she is quick to request all the things & becomes agitated when the tasks are not completed NOW. Pt declined tele. ?
[2024-03-05 07:28] LABS: Chloride* 96 mmol/L (96-114); Potassium* 3.7 mmol/L (3.6-5.1); Sodium* 141 mmol/L (135-149)
[2024-03-05 07:30] LABS: Creatinine* 1.3 mg/dL (0.5-1.5); Est. Creatinine Clearance* 35.27; Estimated Glomerular Filt Rate 45 ml/min
[2024-03-05 07:31] LABS: Anion Gap 8 mEq/L (7-15); Blood Urea Nitrogen* 21 mg/dL (7-30); Calcium* 8.9 mg/dL (8.4-10.6); Carbon Dioxide* 37 mmol/L (20-32); Glucose* 99 mg/dL (60-115)
[2024-03-05 07:32] LABS: Magnesium* 1.9 mg/dL (1.5-2.6)
[2024-03-05 07:34] LABS: C Reactive Protein* 6.4 mg/dL (0.5-1.0)
[2024-03-05 07:38] LABS: Slide Review Reflex No
[2024-03-05] MEDS: OMEPRAZOLE 20 MG CAPSULE DR PO (07:46)
[2024-03-05] MEDS: OXYCODONE 5 MG TABLET PO ×2 (07:46→14:25)
[2024-03-05] MEDS: NYSTATIN POWDER 1 APPLIC TOPICAL ×2 (09:20→20:15)
[2024-03-05] MEDS: SODIUM CHLORIDE 0.9 % (FLUSH) 10 ML SYRINGE 5 ML IVF ×2 (09:21→20:16)
[2024-03-05] MEDS: POTASSIUM CHLORIDE 10 MEQ CAPSULE ER 20 MEQ PO (09:21)
[2024-03-05] MEDS: DULOXETINE 30 MG CAPSULE DR 60 MG PO (09:22)
[2024-03-05] MEDS: TORSEMIDE 20 MG TABLET PO ×2 (09:22→20:14)
[2024-03-05] MEDS: LACTOBACILLUS ACIDOPHILUS 1 TABLET 1 TAB PO (09:22)
[2024-03-05] MEDS: FERROUS SULFATE 325 MG TABLET PO (09:22)
[2024-03-05] MEDS: METOPROLOL SUCCINATE (XL) 50 MG TAB PO (09:22)
[2024-03-05] MEDS: CELECOXIB 100 MG CAPSULE PO (09:23)
[2024-03-05] MEDS: SPIRONOLACTONE 25 MG TABLET PO (09:29)
[2024-03-05 10:00] VITALS: O2SAT 90
[2024-03-05] MEDS: ONDANSETRON ODT 4 MG TAB PO (12:32)
[2024-03-05] MEDS: LIDOCAINE 5% PATCH 2 PATCH TRANSDERMA (14:25)
[2024-03-05 15:00] VITALS: BP 122/78; PULSE 85; RESP 27; TEMP 36.4; O2SAT 93
[2024-03-05 19:00] VITALS: BP 126/61; PULSE 77; RESP 32; TEMP 36.3; O2SAT 91
--- NOTE | 2024-03-05 19:17 | PC.NURSE ---
: The patient is noted to be anxious upon my assessment. Tachypnea was noted due to her anxiety. O2 saturations were noted to range from 87%-92% on RA. I educated her on the importance of deep breathes to help control her respirations. The patient was also agreeable to cleansing under her R breast and completing her sacral, buttock wound care. Cleansed, dried, and zinc cream was applied. New mepilex was applied to tunneling sacral wound.The patient tolerated this well with Alex at the bedside comforting her. Bilateral back lidocaine patches are present. Call light within reach. Gutierrez patent and draining. Nancy LOPEZ BSN
--- NOTE | 2024-03-05 19:53 | PC.NURSE ---
Pt participated in ADL's with script writer while up in chair before breakfast. Partial bed bath per pt tolerance with vashe, wash rag, and nystatin powder to Panus and breast folds. KRISTAL reapplied to LLE. See MAR for pain medication management with relief.
[2024-03-05] MEDS: ENOXAPARIN 40 MG/0.4 ML INJ SUBCUT (20:14)
[2024-03-05] MEDS: HYDROCORTISONE 1 % CREAM 1 APPLIC TOPICAL (20:15)
[2024-03-05 23:00] VITALS: RESP 28; O2SAT 90
[2024-03-05 23:30] VITALS: RESP 28
[2024-03-06] VITALS (11 sets, daily range): BP systolic 122–144; BP diastolic 57–95; PULSE 60–75; RESP 24–32; TEMP 36.2–36.5; O2SAT 90–95; BMI 53.5
[2024-03-06] MEDS: LIDOCAINE 5% PATCH 1 PATCH TRANSDERMA (00:51)
[2024-03-06] MEDS: ACETAMINOPHEN 500 MG TABLET 1000 MG PO ×2 (00:57→18:46)
--- NOTE | 2024-03-06 05:28 | PC.NURSE ---
Addendum entered by Luiz Carlson RN 03/06/24 06:28: Pt called 3x at 0300,0455, and 0612 to transfer to from bed to recliner but refused to cooperate with the transfer when nurses are in the room. Original Note: Shift note: Pt is alert and oriented. Pt frequently uses call light for several reasons including turn and reposition, and ceiling lift transfer to recliner. However, pt will not cooperate with staff in assisting with her request. Pt consistently complain of pain but has been refusing PRN pain medications. Pt only accept medications when she is willing and will ask for a specific medication. KRISTAL wrap to the both lower extremities intact, clean and dry. Turn and reposition upon pt's request.
[2024-03-06 06:06] LABS: HCO3 VBG 38 mmol/L (21-28); PO2 VBG 33.5 mmHG (25-47); pH VBG 7.411 (7.32-7.43)
[2024-03-06 06:07] LABS: Basophils Absolute Auto 0.02 K/uL (0.00-0.30); Basophils Percent Auto 0.4 % (0.0-3.0); Eosinophils Absolute Auto 0.26 K/uL (0.00-0.50); Eosinophils Percent Auto 5.4 % (0.0-7.0); Hematocrit 32.4 % (33.0-51.0); Hemoglobin* 9.8 gm/dL (12.0-16.0); Immature Granulocytes Abs Auto 0.04 K/uL (0.00-0.30); Immature Granulocytes Pct Auto 0.8 %; Lymphocytes Absolute Auto 1.14 K/uL (0.90-2.90); Lymphocytes Percent Auto 23.8 % (20-44); Mean Corpuscular HGB Conc 30 gm/dL (32-36); Mean Corpuscular Hemoglobin 29 pg (26-34); Mean Corpuscular Volume 94 fL (80-100); Monocytes Percent Auto 11.3 % (0.0-11.0); Neutrophils Percent Auto 58.3 % (42.0-72.0); Platelet Count* 197 K/uL (140-440); RDW Coefficient of Variation % 13.5 % (11.5-15.5); Red Blood Count 3.44 m/uL (4.00-5.20)
[2024-03-06 06:09] LABS: PCO2 VBG 61 mmHG (40-50)
[2024-03-06 06:11] LABS: Slide Review Reflex No
[2024-03-06 06:22] LABS: Chloride* 97 mmol/L (96-114); Potassium* 3.9 mmol/L (3.6-5.1); Sodium* 140 mmol/L (135-149)
[2024-03-06 06:25] LABS: Anion Gap 3 mEq/L (7-15); Blood Urea Nitrogen* 23 mg/dL (7-30); Calcium* 8.9 mg/dL (8.4-10.6); Carbon Dioxide* 40 mmol/L (20-32); Creatinine* 1.4 mg/dL (0.5-1.5); Est. Creatinine Clearance* 32.75; Estimated Glomerular Filt Rate 41 ml/min; Glucose* 90 mg/dL (60-115)
[2024-03-06] MEDS: OMEPRAZOLE 20 MG CAPSULE DR PO (06:49)
[2024-03-06] MEDS: OXYCODONE 5 MG TABLET PO ×2 (07:30→17:58)
[2024-03-06] MEDS: LIDOCAINE 5% PATCH 2 PATCH TRANSDERMA (09:32)
[2024-03-06] MEDS: POTASSIUM CHLORIDE 10 MEQ CAPSULE ER 20 MEQ PO (09:38)
[2024-03-06] MEDS: LACTOBACILLUS ACIDOPHILUS 1 TABLET 1 TAB PO (09:38)
[2024-03-06] MEDS: TORSEMIDE 20 MG TABLET PO ×2 (09:39→19:50)
[2024-03-06] MEDS: FERROUS SULFATE 325 MG TABLET PO (09:39)
[2024-03-06] MEDS: METOPROLOL SUCCINATE (XL) 50 MG TAB PO (09:39)
[2024-03-06] MEDS: CELECOXIB 100 MG CAPSULE PO (09:39)
[2024-03-06] MEDS: SPIRONOLACTONE 25 MG TABLET PO (09:39)
[2024-03-06] MEDS: DULOXETINE 30 MG CAPSULE DR 60 MG PO (09:40)
[2024-03-06] MEDS: NYSTATIN POWDER 1 APPLIC TOPICAL ×2 (09:41→20:29)
[2024-03-06] MEDS: SODIUM CHLORIDE 0.9 % (FLUSH) 10 ML SYRINGE 5 ML IVF ×2 (09:41→20:26)
--- NOTE | 2024-03-06 09:57 | PM.IMPN1 ---
Progress Note: A&P Assessment and plan (1) Adult failure to thrive: Problem details: - Failing at home without extra support; requires SNF level care for wound/skin care, therapies - amenable to SNF stay when bed available Status: Acute (2) Urinary tract infection: Problem details: - E Coli; in addition to + wound culture for Proteus, MRSA, and GBS - given allergies, treat with Ertapenem (03/06/24) Status: Acute (3) Ulcer of sacral region, stage 4: Problem details: - hospitalized for this in 06/05, improved 09/2023, patient and partner reported prior resolution - as of 02/2024, stage 4 again - historically has refused surgery and debridement; General Surgery has evaluated; no current surgical needs identified, would require transfer if that were to change - medical management, offloading pressure is primary treatment at this time, in addition to wound and skin care Status: Acute (4) Metabolic alkalosis: Problem details: - noted on 03/04, likely 2/2 diuresis - 03/04: decreased Torsemide from 40mg BID --> 20mg BID, continue Spironolactone - 03/05: VBG has normalized, continue current medications and monitor Status: Acute (5) Acute respiratory failure: Problem details: - noted after admission (03/02) overnight, primarily hypoventilation with both hypoxia and hypercarbia associated with AMS - likely combination of LAKEISHA, OHS, HFpEF - currently improved, has BIPAP available if needed and tolerated Status: Acute (6) Acute diastolic CHF (congestive heart failure): Problem details: - HFpEF with formal TTE results below (03/02/24), no obvious valvular disease or wall motion abnormality - continue diuresis, titrate GDMT as tolerated Limited Echocardiogram performed 1. Technically limited exam. 2. Normal LV size, not well visualized wall thickness (~upper limit of normal-mildly increased), normal global systolic function with an estimated EF of 60 - 65%. 3. Right ventricle is not well visualized. It appears normal in limited views. 4. No significant valve disease detected. Status: Acute (7) Obesity hypoventilation syndrome: Problem details: - likely given habitus, elevated pCO2, elevated bicarbonate. Would benefit from sleep study, CPAP/BIPAP if willing Status: Acute (8) Anxiety: Problem details: - long history of this, continue duloxetine at 60mg Qday; previously on prn Lorazepam (not continuing regularly given high risk of complications) Status: Chronic (9) Morbid obesity: Problem details: - chronic with BMI 58, complications include OHS - weight on discharge in 06/05 was 111kg, current weight 141kg - unclear what her weight was upon leaving [facility] SN[facility] - Nutrition consult, 1500 calorie diet Status: Chronic (10) Osteoarthritis: Problem details: - longstanding, severe back and knee pain which has been disabling for her, working with therapies and continue to provide non-opiate pain management Status: Acute (11) Discharge planning issues: Problem details: - appreciate assistance from therapy teams and SW; emergency guardianship per [facility] obtained 03/03/24 Status: Acute (12) Chronic pain: Problem details: - previously on opioids, then buprenorphine - high risk for respiratory complications, has order for low dose Oxycodone during the day prior to cares prn Status: Acute (13) Chronic acquired lymphedema: Problem details: - chronic, bilateral; compression and elevation if she will tolerate Status: Chronic Plan - per above - to SNF when bed available - daughter updated at bedside, questions answered Subjective Date Seen: 03/06/24 Interval history: Gracia was admitted to the hospital on 02/29/24 for acute on chronic weakness and inability to care for self. Multiple comorbidities; primarily stage IV sacral ulcer, chronic back/left knee pain, BLE lymphedema and LLE cellulitis, and morbid obesity. She has been in and out of hospitals and half-way facility since COVID infection in May 2023, has been home less than 4 weeks over the past 9 months. Notable findings and events since admission: 03/02: acute hypoxic respiratory failure with acidosis and hypercarbia, placed on short course of BIPAP and given Lasix for presumed fluid overload, intermittently confused 03/03: improving mentation and breathing, TTE reveals HFpEF. 03/03: Emergency guardianship through [facility] given patient's multiple hospitalizations and SNF stays, inability to safely care for self at home 03/06: urine culture + for E Coli, wound culture from admission + for GBS, small amount of MRSA, Proteus Throughout stay, Gracia's chronic wounds have been stable, seen by lymphedema therapy this morning. Gracia continues to diurese well (1000mL UOP daily), labs stable/baseline. Working with PT and OT. SNF stay recommended (probably followed by intermediate project manager stay, pending rehab success). Continues to have intermittent pain with cares, using low dose Oxycodone during the day with relief. Today, Gracia notes that her breathing occasionally feels heavy; believes that it directly correlates with her anxiety regarding cares. She is amenable to starting abx today for her + urine and wound cultures; given allergies, starting Ertapenem. Exam Narrative: Exam Narrative: GEN: Alert and awake, sitting comfortably in bedside chair HEENT: No scleral icterus, no conjunctival pallor. Moist mucous membranes, poor dentition CV: RRR, soft systolic murmurs without concerning features R: Intermittent tachypnea (seems exacerbated by anxiety during our visit) Ext: Edema over BLE, moderate improvement from admission. Chronically erythematous/thickened skin over LLE with maceration of skin posteriorly, improved Skin: Scattered bruising in various stages of healing noted over BUEs. Per nursing staff, sacral ulcer is stable Neuro: No focal deficits on limited exam, no resting tremor Psych: Appropriate, mild anxiety discussing current stay and need for rehab Const: Vital Signs, click to edit/add: Vital Signs - 24 hr 03/05/24 10:00 03/05/24 15:00 03/05/24 15:00 Temperature 97.5 F L Pulse Rate [Pulse Oximeter] 85 Respiratory Rate 27 H 27 H Blood Pressure [Le ft Arm] 122/78 Blood Pressure [Ri ght forearm] Pulse Oximetry 90 93 93 Oxygen Delivery Me thod Room Air Room Air 03/05/24 19:00 03/05/24 23:00 03/05/24 23:00 Temperature 97.3 F L Pulse Rate [Pulse Oximeter] 77 Respiratory Rate 32 H 28 H 28 H Blood Pressure [Le ft Arm] Blood Pressure [Ri ght forearm] 126/61 Pulse Oximetry 91 90 Oxygen Delivery Me thod Room Air Room Air 03/05/24 23:00 03/05/24 23:30 03/06/24 03:00 Temperature Pulse Rate [Pulse Oximeter] Respiratory Rate 28 H 28 H 28 H Blood Pressure [Le ft Arm] Blood Pressure [Ri ght forearm] Pulse Oximetry 90 92 Oxygen Delivery Me thod Room Air Room Air 03/06/24 05:14 03/06/24 07:00 03/06/24 07:00 Temperature Pulse Rate [Pulse Oximeter] 60 Respiratory Rate 32 H 28 H 28 H Blood Pressure [Le ft Arm] Blood Pressure [Ri ght forearm] Pulse Oximetry 95 Oxygen Delivery Me thod Room Air 03/06/24 07:00 Temperature 97.2 F L Pulse Rate [Pulse Oximeter] 60 Respiratory Rate 28 H Blood Pressure [Le ft Arm] Blood Pressure [Ri ght forearm] 122/58 L Pulse Oximetry 95 Oxygen Delivery Me thod Room Air Labs Labs: Laboratory Results - last 24 hr 03/06/24 05:52 WBC 4.80 RBC 3.44 L Hgb 9.8 L Hct 32.4 L MCV 94 MCH 29 MCHC 30 L RDW Coeff of Vilma 13.5 Plt Count 197 Neut % (Auto) 58.3 Lymph % (Auto) 23.8 [place] % (Auto) 11.3 H Eos % (Auto) 5.4 Baso % (Auto) 0.4 Neut # (Auto) 2.80 Lymph # (Auto) 1.14 [place] # (Auto) 0.50 Eos # (Auto) 0.26 Baso # (Auto) 0.02 Abs Immat Gran (auto) 0.04 Imm/Tot Granulo (auto) 0.8 VBG pH 7.411 VBG pCO2 61 H* VBG pO2 33.5 VBG HCO3 38 H Sodium 140 Potassium 3.9 Chloride 97 Carbon Dioxide 40 H Anion Gap 3 L BUN 23 Creatinine 1.4 Estimated Creat Clear 32.75 Estimated GFR 41 Glucose 90 Calcium 8.9 Magnesium 2.0
--- NOTE | 2024-03-06 10:14 | CRLHL7_ITS ---
For Patients: As a result of the Century Cures Act, medical imaging exams and procedure reports are released immediately into your electronic medical record. You may view this report before your referring provider. If you have questions, please contact your health care provider. Indication: Tachypnea Technique: AP view of the chest. Comparison: 03/02/2024 Findings: Low lung volumes. Mildly elevated left hemidiaphragm. Normal cardiomediastinal silhouette. Moderate interstitial prominence and peribronchial cuffing. No pleural effusion or visualized pneumothorax. Impression: Moderate interstitial prominence and peribronchial cuffing may represent pulmonary edema or airways infection/inflammation, slightly decreased from prior examination. Dictated by Julius Valderrama MD @ 03/06/2024 12:23:19 PM (Electronically Signed)
[2024-03-06] MEDS: ERTAPENEM 1 GM in 0.9 % SODIUM CHLORIDE Mini-bag 100 ML IVPB (11:02)
--- NOTE | 2024-03-06 15:05 | PC.NURSE ---
Addendum entered by Verna Payne RN 03/06/24 15:10: Gutierrez is patent and intact. Total output: 500 mL clear, straw urine. Original Note: End of shift [id number]: Pt has been A&O, afebrile and VSS this shift. She was non-compliant with cares and refused skin care, wound care & lymphedema care this morning. Aliyah, pt?s [facility] appointed guardian, came in and visited with patient late morning. Zoom meeting for court hearing is scheduled for tomorrow morning at 0830; it?s being asked that we pre-medicate patient prior to meeting to hopefully promote participation. Pt agreed to work with PT and got up in the recliner at 1300 via ceiling lift. BLE weeping, Inter-dry cloths have been on/off all day in posterior knees and groin/abd folds. PIV in right AC is SL and C/D/I. UC came back positive for E. Coli so IV Ertapenem started q24H. Repeated CXR done today showing an increase in pulmonary edema. Pt refused elastic wraps to legs. Sacral wound care done at shift change. ?
--- NOTE | 2024-03-06 15:28 | PC.NURSE ---
I met with Gracia today after reports she had fired a OT and was not complying with her behavioral care plan. I reminded her we cannot yell, scream, or curse at staff. she did ask that when lifting we use barriers to separate her skin from the lift sling. She continued to diverge from the conversation when I was redirecting her to her expected behaviors and expectations. She stated we are not listening to her when lifting and I reminded her the longer we wait the more pain it causes, and that we do not wish pain on her. She responded they don't care and they don't know how much pain I am in, I explained we know your in pain and are trying to minimize the time you are in pain. The conversation ended by reaffirming expectations and the patinet no longer choosing to respond to me. We will continue to reassess the situation as needed.
--- NOTE | 2024-03-06 15:38 | PC.SOCIAL ---
Discharge planning: Received the following list of chcf facilities requested by pt's guardian Aliyah Henson [facility]. Contacted these facilities regarding bed availability with the listed results: 1. [facility] - [phone]- left message requesting call back. 2. [facility] - [phone] left message requesting call back. 3. [facility]- [phone] cannot meet needs of patient due to weight. 4. [facility] ([facility] - no bed available. 5. [facility] - facility permanently closed. 6. [facility] - facility permanently closed. 7. [facility] - [phone] left message requesting call back. 8. [facility] - [phone] - only bariatric bed is not available, so can not meet pt needs. 9. [facility] - [phone] - left message requesting call back. 10. [facility] - [phone] - left message requesting call back. Additionally called these facilities off of department list of SNF's able to accept bariatric patients: 11. [facility] - can assess. Informatoin to be faxed for evaluation for admit. 12. [facility] [address] - [phone] - left message requesting call back. Guardian shared she will not accept placement at [facility] or [facility] [place]. stock worker to follow up as needed.
--- NOTE | 2024-03-06 15:50 | PC.SOCIAL ---
Social work: Meeting held with pt's [facility] Emergency Guardian, Aliyah Henson, pt's daughter, this medical social worker and Iggy Mendosa, Med/Surg/CCU Information Broker, to discuss Guardian responsibility and discharge planning. Guardian requested daily emailed updates on behaviors. She requested to be contacted immediately for any medical consents or changes in status or changes in care. She expects to remain pt's guardian for 60-[address] decision on penitentiary guardianship is made. She states pt needs to follow MD orders regarding food and that she will request family not bring in additional food from the community. However, guardian is understanding that hospital can not monitor what food visitors are bringing in to pt. Pt has been requesting food be brought in by family, which they have been doing. Guardian requested hospital assistance in connecting pt to the [facility] hearing tomorrow morning at 8:30am. Dtr plans to attend by zoom and is going to ask her brothers to be at the hospital with pt for the zoom hearing. bee worker has the information to connect to the meeting and will assist pt to participate in this meeting from the hospital by [facility]. Dtr has been visiting from [place] since Wednesday night and will be returning to [place] today. She is pleased with the care being provided to pt and stated multiple times that the behavior towards staff at the hospital is the same behavior pt has shown towards others her whole life. Jay and dtr are in agreement for pt's need for intermediate teacher placement in a intermediate. Jay provided medical social worker with a list of facilities she would refer but states there are only two facilities she would refuse for pt to be discharged to, [facility] and [facility] [place]. Jay met with pt in-person with dtr present today and will continue to be in contact with pt and family.
--- NOTE | 2024-03-06 19:13 | PC.NURSE ---
Addendum entered by Beatriz Gibbons RN 03/07/24 09:45: During wound care on coccyx patient able to mostly turn self to side, needed some assist moving right leg. Original Note: Shift Summary 15-19: Patient allowed staff to perform wound care on coccyx. C/o pain this evening, heard crying out around 1800, PRN medication given as well as new order for [place] for bilat knees with some relief.
[2024-03-06] MEDS: ENOXAPARIN 40 MG/0.4 ML INJ SUBCUT (20:26)
[2024-03-06] MEDS: HYDROCORTISONE 1 % CREAM 1 APPLIC TOPICAL (20:29)
[2024-03-07] VITALS (12 sets, daily range): BP systolic 127–160; BP diastolic 65–85; PULSE 67–78; RESP 20–28; TEMP 36.1–37.1; O2SAT 91–95
[2024-03-07] MEDS: OMEPRAZOLE 20 MG CAPSULE DR PO (06:03)
[2024-03-07 06:24] LABS: HCO3 VBG 38 mmol/L (21-28); PCO2 VBG 56 mmHG (40-50); PO2 VBG 34.5 mmHG (25-47); pH VBG 7.438 (7.32-7.43)
[2024-03-07 06:29] LABS: Basophils Absolute Auto 0.04 K/uL (0.00-0.30); Basophils Percent Auto 0.7 % (0.0-3.0); Eosinophils Absolute Auto 0.33 K/uL (0.00-0.50); Eosinophils Percent Auto 5.6 % (0.0-7.0); Hematocrit 35.6 % (33.0-51.0); Hemoglobin* 10.8 gm/dL (12.0-16.0); Immature Granulocytes Abs Auto 0.04 K/uL (0.00-0.30); Immature Granulocytes Pct Auto 0.7 %; Lymphocytes Percent Auto 20.5 % (20-44); Mean Corpuscular HGB Conc 30 gm/dL (32-36); Mean Corpuscular Hemoglobin 28 pg (26-34); Mean Corpuscular Volume 93 fL (80-100); Monocytes Percent Auto 8.7 % (0.0-11.0); Neutrophils Absolute Auto 3.73 K/uL (1.7-7.0); Neutrophils Percent Auto 63.8 % (42.0-72.0); Platelet Count* 226 K/uL (140-440); RDW Coefficient of Variation % 13.5 % (11.5-15.5); Red Blood Count 3.83 m/uL (4.00-5.20); White Blood Count* 5.85 K/uL (4.50-11.00)
[2024-03-07 06:45] LABS: Slide Review Reflex No
[2024-03-07 06:47] LABS: Chloride* 96 mmol/L (96-114); Sodium* 139 mmol/L (135-149)
[2024-03-07 06:48] LABS: Potassium* 4.5 mmol/L (3.6-5.1)
[2024-03-07 06:50] LABS: Creatinine* 1.1 mg/dL (0.5-1.5); Est. Creatinine Clearance* 41.68; Estimated Glomerular Filt Rate 54 ml/min
[2024-03-07 06:51] LABS: Anion Gap 6 mEq/L (7-15); Blood Urea Nitrogen* 24 mg/dL (7-30); Calcium* 9.2 mg/dL (8.4-10.6); Carbon Dioxide* 37 mmol/L (20-32); Glucose* 96 mg/dL (60-115)
--- NOTE | 2024-03-07 07:08 | PC.NURSE ---
End of shift [id number]: A&O. Pt reports anxiety about court hearing tomorrow. Steel Melter encouraged pt to take deep breaths. Aromatherapy patch given. BIPAP offered and encouraged, pt refused along with cont POX. Pt refused wrap on legs. Steel Melter encouraged turn and repo, pt refused. Intra-dry placed under breasts. Steel Melter checked on pt overnight and pt was sitting up on her own in the bed watching tv. Otherwise pt has been sleeping between cares. Gutierrez in place and draining. VSS. ?for majority of shift pt was cooperative and using call light instead of calling out. at 0630 pt started calling out and swearing. pt requesting pillow under her bottom in the chair. with assistance ad writer and staff put a pillow under her bottom. shortly after leaving the room pt was yelling out and called 911 multiple times for unknown reasons to the ad writer. MD vance.
[2024-03-07] MEDS: OXYCODONE 5 MG TABLET PO ×2 (07:12→12:43)
--- NOTE | 2024-03-07 07:55 | PM.IMPN1 ---
Progress Note: A&P Assessment and plan (1) Adult failure to thrive: Problem details: - Failing at home without extra support; requires SNF level care for wound/skin care, therapies - amenable to SNF stay when bed available Status: Acute (2) Urinary tract infection: Problem details: - E Coli; in addition to + wound culture for Proteus, MRSA, and GBS - given allergies, treat with Ertapenem (03/06/24) Status: Acute (3) Ulcer of sacral region, stage 4: Problem details: - hospitalized for this in 06/05, improved 09/2023, patient and partner reported prior resolution - as of 02/2024, stage 4 again - historically has refused surgery and debridement; General Surgery has evaluated; no current surgical needs identified, would require transfer if that were to change - medical management, offloading pressure is primary treatment at this time, in addition to wound and skin care Status: Acute (4) Metabolic alkalosis: Problem details: - noted on 03/04, likely 2/2 diuresis - 03/04: decreased Torsemide from 40mg BID --> 20mg BID, continue Spironolactone - 03/05: VBG has normalized, continue current medications and monitor - 03/07: pH again, patient continues to have high UOP. Will decrease Torsemide from 20mg BID --> 20mg once/day, d/c Potassium given K of 4.5 Status: Acute (5) Acute respiratory failure: Problem details: - noted after admission (03/02) overnight, primarily hypoventilation with both hypoxia and hypercarbia associated with AMS - likely combination of LAKEISHA, OHS, HFpEF, anxiety. Persistent intermittent tachypnea noted during stay without other associated features - has BIPAP available if needed and tolerated Status: Acute (6) Acute diastolic CHF (congestive heart failure): Problem details: - HFpEF with formal TTE results below (03/02/24), no obvious valvular disease or wall motion abnormality - continue diuresis, titrate GDMT as tolerated Limited Echocardiogram performed 1. Technically limited exam. 2. Normal LV size, not well visualized wall thickness (~upper limit of normal-mildly increased), normal global systolic function with an estimated EF of 60 - 65%. 3. Right ventricle is not well visualized. It appears normal in limited views. 4. No significant valve disease detected. Status: Acute (7) Obesity hypoventilation syndrome: Problem details: - likely given habitus, elevated pCO2, elevated bicarbonate. Would benefit from sleep study, CPAP/BIPAP if willing Status: Acute (8) Anxiety: Problem details: - long history of this, continue duloxetine at 60mg Qday; previously on prn Lorazepam (not continuing regularly given high risk of complications) Status: Chronic (9) Morbid obesity: Problem details: - chronic with BMI 58, complications include OHS - weight on discharge in 06/05 was 111kg, current weight 141kg - unclear what her weight was upon leaving [facility] - Nutrition consult, 1500 calorie diet Status: Chronic (10) Osteoarthritis: Problem details: - longstanding, severe back and knee pain which has been disabling for her, working with therapies and continue to provide non-opiate pain management Status: Acute (11) Discharge planning issues: Problem details: - appreciate assistance from therapy teams and SW; emergency guardianship per [facility] obtained 03/03/24 Status: Acute (12) Chronic pain: Problem details: - previously on opioids, then buprenorphine - high risk for respiratory complications, has order for low dose Oxycodone during the day prior to cares prn Status: Acute (13) Chronic acquired lymphedema: Problem details: - chronic, bilateral; compression and elevation if she will tolerate Status: Chronic Plan - per above - Lovenox for ppx Subjective Date Seen: 03/07/24 Interval history: Gracia was admitted to the hospital on 02/29/24 for acute on chronic weakness and inability to care for self. She has multiple known comorbidities; primarily stage IV sacral ulcer, chronic back/left knee pain, BLE lymphedema and LLE cellulitis, and morbid obesity. She has been in and out of hospitals and usp facility since COVID infection in May 2023, has been home less than 4 weeks over the past 9 months. Notable findings and events since admission: 03/02: acute hypoxic respiratory failure with acidosis and hypercarbia, placed on short course of BIPAP and given Lasix for presumed fluid overload, intermittently confused 03/03: improving mentation and breathing, TTE reveals HFpEF. Diuresis initiated with Torsemide/Spironolactone 03/03: Emergency guardianship through [facility] given patient's multiple hospitalizations and SNF stays, inability to safely care for self at home 03/06: urine culture + for E Coli, wound culture from admission + for GBS, small amount of MRSA, Proteus. Given reassuring wound exam, will not treat colonization. Treating UTI with Ertapenem Gracia continues to diurese (>1L/day, has covarrubias in place). Today, her pH is up again, indicative of a contraction alkalosis. She's working with PT and OT; SNF stay recommended at this time. Continues to have intermittent pain with cares, using low dose Oxycodone during the day with relief in addition to topical therapies. Noted to have tachypnea intermittently over the past 48 hours (worse with anxiety flares), no CP. Refusing BIPAP. CXR 03/06 stable. This morning, Gracia felt that she wasn't getting moved from her chair to bed in a timely fashion and called the police to express her frustrations. She had a Zoom meeting scheduled to discuss/contest her emergency guardianship; she declined to attend. Exam Narrative: Exam Narrative: GEN: Alert and awake, sitting up in bed HEENT: No scleral icterus, no conjunctival pallor. Moist mucous membranes, poor dentition CV: RRR, soft systolic murmur without concerning features R: Breathing comfortably during our visit, RR 18-20. No wheezing, fine bibasilar crackles Ext: Edema over BLE, + improved from admission. Chronically erythematous/thickened skin over LLE with maceration of skin posteriorly, also improved Skin: Scattered bruising in various stages of healing noted over BUEs. Neuro: No focal deficits on limited exam, no resting tremor Psych: Appropriate, seems remorseful for calling police Const: Vital Signs, click to edit/add: Vital Signs - 24 hr 03/06/24 10:06 03/06/24 12:44 03/06/24 15:36 Temperature Pulse Rate [Pulse Oximeter] 75 Respiratory Rate 30 H 24 Blood Pressure [Ri ght forearm] Pulse Oximetry 95 90 92 Oxygen Delivery Me thod Room Air Room Air Oxygen Flow Rate Fraction of Inspir ed Oxygen 03/06/24 15:36 03/06/24 19:46 03/06/24 23:00 Temperature 97.7 F 97.4 F L Pulse Rate [Pulse Oximeter] 67 67 Respiratory Rate 24 24 28 H Blood Pressure [Ri ght forearm] 132/95 H 144/73 H Pulse Oximetry 92 93 Oxygen Delivery Me thod Room Air Room Air Oxygen Flow Rate Fraction of Inspir ed Oxygen 03/06/24 23:38 03/06/24 23:39 03/06/24 23:43 Temperature Pulse Rate [Pulse Oximeter] 66 Respiratory Rate 28 H 28 H 28 H Blood Pressure [Ri ght forearm] 129/57 L Pulse Oximetry 91 91 Oxygen Delivery Me thod Room Air Room Air Oxygen Flow Rate 1 Fraction of Inspir ed Oxygen 25 03/07/24 03:06 Temperature Pulse Rate [Pulse Oximeter] Respiratory Rate 28 H Blood Pressure [Ri ght forearm] Pulse Oximetry Oxygen Delivery Me thod Oxygen Flow Rate Fraction of Inspir ed Oxygen Labs Labs: Laboratory Results - last 24 hr 03/07/24 03/07/24 04:00 06:09 WBC 5.85 RBC 3.83 L Hgb 10.8 L Hct 35.6 MCV 93 MCH 28 MCHC 30 L RDW Coeff of Vilma 13.5 Plt Count 226 Neut % (Auto) 63.8 Lymph % (Auto) 20.5 [place] % (Auto) 8.7 Eos % (Auto) 5.6 Baso % (Auto) 0.7 Neut # (Auto) 3.73 Lymph # (Auto) 1.20 [place] # (Auto) 0.50 Eos # (Auto) 0.33 Baso # (Auto) 0.04 Abs Immat Gran (auto) 0.04 Imm/Tot Granulo (auto) 0.7 VBG pH 7.438 H VBG pCO2 56 H VBG pO2 34.5 VBG HCO3 38 H Sodium 139 Potassium 4.5 Chloride 96 Carbon Dioxide 37 H Anion Gap 6 L BUN 24 Creatinine 1.1 Estimated Creat Clear 41.68 Estimated GFR 54 Glucose 96 Calcium 9.2
[2024-03-07] MEDS: TORSEMIDE 20 MG TABLET PO (08:17)
[2024-03-07] MEDS: CELECOXIB 100 MG CAPSULE PO (09:14)
[2024-03-07] MEDS: DULOXETINE 30 MG CAPSULE DR 60 MG PO (09:15)
[2024-03-07] MEDS: HYDROCORTISONE 1 % CREAM 1 APPLIC TOPICAL ×2 (09:15→20:31)
[2024-03-07] MEDS: FLUTICASONE PROPIONATE NASAL 1 SPRAY NOSTRIL-B (09:15)
[2024-03-07] MEDS: METOPROLOL SUCCINATE (XL) 50 MG TAB PO (09:16)
[2024-03-07] MEDS: LACTOBACILLUS ACIDOPHILUS 1 TABLET 1 TAB PO (09:16)
[2024-03-07] MEDS: FERROUS SULFATE 325 MG TABLET PO (09:16)
[2024-03-07] MEDS: SPIRONOLACTONE 25 MG TABLET PO (09:28)
[2024-03-07] MEDS: SODIUM CHLORIDE 0.9 % (FLUSH) 10 ML SYRINGE 5 ML IVF ×2 (09:29→20:33)
[2024-03-07] MEDS: LIDOCAINE 5% PATCH 2 PATCH TRANSDERMA (09:29)
[2024-03-07] MEDS: NYSTATIN POWDER 1 APPLIC TOPICAL ×2 (09:29→22:32)
[2024-03-07] MEDS: ERTAPENEM 1 GM in 0.9 % SODIUM CHLORIDE Mini-bag 100 ML IVPB (10:36)
--- NOTE | 2024-03-07 16:48 | PC.SOCIAL ---
Discharge planning: Contacted the following facilities for short term rehab placement with the listed results: 1. [facility] - left voicemail for Sloane in admitting and requested a call back. 2. [facility] - Secure emailed referral to Carolann in admitting at [email or web address], who requested this information be sent. 3. [facility] - LEft voicemail with Rosangela in admissions requesting a call back. 4. [facility] - secure emailed referral to Cammie in admitting for evaluation for admit to any facility in the entire [facility] facility system. 5. [facility] - Left message with Sarah in admissions [phone] requesting call back regarding criteria for admit and availability at this facility. paint factory worker to follow up as needed.
--- NOTE | 2024-03-07 18:27 | PC.NURSE ---
End of Shift: VSS, afebrile. Patient reports pain on her back and left leg, gave PRN and scheduled medication. Patient refused damaris wraps on her legs. Transfered from bed to chair multiple times this shift, encouraged repositioning. !%
--- NOTE | 2024-03-07 18:29 | PC.NURSE ---
End of Shift: VSS, afebrile. Patient stated she was anxious about her court hearing this morning, and then stated she was in too much pain to do the zoom meeting. Patient reports pain on her back and left leg, gave PRN and scheduled medication. She has scheduled medication patches on her lower back. Patient refused damaris wraps on her legs. Dressing change completed on coccyx. Transferred from bed to chair multiple times via ceiling lift this shift, encouraged repositioning as tolerated. 1500kcal diet. Gutierrez catheter patent and draining.
[2024-03-07] MEDS: BUSPIRONE 10 MG TABLET PO (20:29)
[2024-03-07] MEDS: ENOXAPARIN 40 MG/0.4 ML INJ SUBCUT (22:35)
[2024-03-08] VITALS (8 sets, daily range): BP systolic 145–180; BP diastolic 79–100; PULSE 63–79; RESP 20–24; TEMP 36.4–37.3; O2SAT 92–95
[2024-03-08] MEDS: LIDOCAINE 5% PATCH 1 PATCH TRANSDERMA (01:25)
[2024-03-08] MEDS: ACETAMINOPHEN 500 MG TABLET 1000 MG PO ×2 (05:54→19:29)
[2024-03-08] MEDS: OMEPRAZOLE 20 MG CAPSULE DR PO (05:54)
--- NOTE | 2024-03-08 06:37 | PC.NURSE ---
Pt is alert and oriented x3.?Afebrile. Pt reports 8/10 pain in lower back and left knee, pain managed with PRN medications, repositioning, message. Pt refused cold pack. Pt unable to tolerate HOB at [facility] educated pt on ulcer formation and prevention, pt refused to lower HOB report ?It makes me feel like I can?t breathe.? Pt was turned and repositioned from left side to back throughout night, pt cannot tolerate turning to right side and refuses, pt reports only being able to?sleep by leaning towards her left side. Pt refused BiPap overnight but made several attempts to try getting the BiPap on but was unable to tolerate BiPap mask reporting ?I feel claustrophobic with it on, there is no way I could sleep with this on.? Education given on importance of wearing BiPap, how it functions,?benefits of wearing BiPap, signs and symptoms that occur without it. Pt refused. Pt?s covarrubias catheter was replaced due to previous catheter getting dislodged balloon and catheter tip intact. Pt?s new covarrubias catheter is patent and draining.
[2024-03-08 06:43] LABS: HCO3 VBG 35 mmol/L (21-28); PCO2 VBG 50 mmHG (40-50); PO2 VBG 40.4 mmHG (25-47); pH VBG 7.444 (7.32-7.43)
[2024-03-08 06:49] LABS: Basophils Absolute Auto 0.03 K/uL (0.00-0.30); Basophils Percent Auto 0.5 % (0.0-3.0); Eosinophils Absolute Auto 0.25 K/uL (0.00-0.50); Eosinophils Percent Auto 4.5 % (0.0-7.0); Hematocrit 33.7 % (33.0-51.0); Hemoglobin* 10.4 gm/dL (12.0-16.0); Immature Granulocytes Abs Auto 0.04 K/uL (0.00-0.30); Immature Granulocytes Pct Auto 0.7 %; Lymphocytes Absolute Auto 1.14 K/uL (0.90-2.90); Lymphocytes Percent Auto 20.7 % (20-44); Mean Corpuscular HGB Conc 31 gm/dL (32-36); Mean Corpuscular Hemoglobin 28 pg (26-34); Mean Corpuscular Volume 92 fL (80-100); Monocytes Percent Auto 10.7 % (0.0-11.0); Neutrophils Absolute Auto 3.46 K/uL (1.7-7.0); Neutrophils Percent Auto 62.9 % (42.0-72.0); Platelet Count* 216 K/uL (140-440); RDW Coefficient of Variation % 13.4 % (11.5-15.5); Red Blood Count 3.66 m/uL (4.00-5.20); White Blood Count* 5.51 K/uL (4.50-11.00)
[2024-03-08 06:54] LABS: Slide Review Reflex No
[2024-03-08 07:11] LABS: Chloride* 98 mmol/L (96-114); Sodium* 137 mmol/L (135-149)
[2024-03-08 07:12] LABS: Potassium* 4.5 mmol/L (3.6-5.1)
[2024-03-08 07:14] LABS: Anion Gap 6 mEq/L (7-15); Blood Urea Nitrogen* 20 mg/dL (7-30); Carbon Dioxide* 33 mmol/L (20-32); Est. Creatinine Clearance* 45.85; Estimated Glomerular Filt Rate 61 ml/min
[2024-03-08 07:15] LABS: Calcium* 9.3 mg/dL (8.4-10.6); Glucose* 103 mg/dL (60-115)
--- NOTE | 2024-03-08 08:21 | P.IMPN_ITS ---
Progress Note: A&P Assessment and plan (1) Adult failure to thrive: Problem details: - Failing at home without extra support; requires SNF level care for wound/skin care, therapies - amenable to SNF stay when bed available Status: Acute (2) Urinary tract infection: Problem details: - E Coli; in addition to + wound culture for Proteus, MRSA, and GBS - given allergies, treating with 3 day course of Ertapenem (03/06-03/08) Status: Acute (3) Ulcer of sacral region, stage 4: Problem details: - hospitalized for this in 06/05, improved 09/2023, patient and partner reported prior resolution - as of 02/2024, stage 4 again - historically has refused surgery and debridement; General Surgery has evalu ated; no current surgical needs identified, would require transfer if that were to change - medical management, offloading pressure is primary treatment at this time, in addition to wound and skin care Status: Acute (4) Metabolic alkalosis: Problem details: - noted on 03/04, likely 2/2 diuresis - 03/04: decreased Torsemide from 40mg BID --> 20mg BID, continue Spironolactone - 03/05: VBG has normalized, continue current medications and monitor - 03/07: pH increased, patient continues to have high UOP. Decreased Torsemide from 20mg BID --> 20mg once/day, d/c Potassium as well, on Spironolactone Status: Acute (5) Acute respiratory failure: Problem details: - noted after admission (03/02) overnight, primarily hypoventilation with both hypoxia and hypercarbia associated with AMS - likely combination of LAKEISHA, OHS, HFpEF, anxiety. Persistent intermittent tachypnea noted during stay without other associated features - has BIPAP available if needed and tolerated Status: Acute (6) Acute diastolic CHF (congestive heart failure): Problem details: - HFpEF with formal TTE results below (03/02/24), no obvious valvular disease or wall motion abnormality - continue diuresis, titrate GDMT as tolerated Limited Echocardiogram performed 1. Technically limited exam. 2. Normal LV size, not well visualized wall thickness (~upper limit of normal- mildly increased), normal global systolic function with an estimated EF of 60 - 65%. 3. Right ventricle is not well visualized. It appears normal in limited views. 4. No significant valve disease detected. Status: Acute (7) Obesity hypoventilation syndrome: Problem details: - likely given habitus, elevated pCO2, elevated bicarbonate. Would benefit from sleep study, CPAP/BIPAP if willing Status: Acute (8) Anxiety: Problem details: - long history of this, on Duloxetine 60mg Qday; previously on prn Lorazepam (not continuing regularly given high risk of complications) - 03/07/24: increased Duloxetine to 90mg/day, added low dose Buspirone BID Status: Chronic (9) Morbid obesity: Problem details: - chronic with BMI 58, complications include OHS - weight on discharge in 06/05 was 111kg, current weight 141kg - unclear what her weight was upon leaving [facility] SNF - Nutrition consult, 1500 calorie diet Status: Chronic (10) Osteoarthritis: Problem details: - longstanding, severe back and knee pain which has been disabling for her, working with therapies and continue to provide non-opiate pain management Status: Acute (11) Discharge planning issues: Problem details: - appreciate assistance from therapy teams and ; emergency guardianship per [facility] obtained 03/03/24 Status: Acute (12) Chronic pain: Problem details: - previously on opioids, then buprenorphine - high risk for respiratory complications, has order for low dose Oxycodone during the day prior to cares prn - current non-opiate pain management: scheduled APAP, Celebrex, Duloxetine, Lid ocaine patch, topical Aspercreme. Status: Acute (13) Chronic acquired lymphedema: Problem details: - chronic, bilateral; compression and elevation if she will tolerate Status: Chronic Plan - per above - Lovenox for ppx Subjective Date Seen: 03/08/24 Interval history: Gracia was admitted to the hospital on 02/29/24 for acute on chronic weakness and inability to care for self. She has multiple known comorbidities; primarily stage IV sacral ulcer, chronic back/left knee pain, BLE lymphedema and LLE cellulitis, and morbid obesity. She has been in and out of hospitals and alf facility since COVID infection in May 2023, has been home less than 4 weeks over the past 9 months. Notable findings and events since admission: 03/02: acute hypoxic respiratory failure with acidosis and hypercarbia, placed on short course of BIPAP and given Lasix for presumed fluid overload, intermittently confused 03/03: improving mentation and breathing, TTE reveals HFpEF. Diuresis initiated with Torsemide/Spironolactone 03/03: Emergency guardianship through [facility] given patient's multiple hospitalizations and SNF stays, inability to safely care for self at home 03/06: urine culture + for E Coli, wound culture from admission + for GBS, small amount of MRSA, Proteus. Given reassuring wound exam, not treating colonization. Treating UTI with Ertapenem 03/07: increased Cymbalta and Celebrex, added BID Buspar to help with anxiety and agitation surrounding cares Gracia continues to diurese (>1L/day down, has covarrubias in place to monitor Is and Os). She's working with PT and OT; SNF stay recommended at this time. Continues to have intermittent pain with cares, using low dose Oxycodone during the day with relief in addition to topical therapies. During stay, intermittent tachypnea without CP or other symptoms. Attempting BIPAP, intolerant 2/2 claustropobia. CXR 03/06 stable. She had a Zoom meeting on 03/07 to discuss/contest her emergency guardianship; declined to attend. This morning, Gracia continues to note pain in low back and extremities, no other concerns. Exam Narrative: Exam Narrative: GEN: Alert and oriented, sitting up in bed HEENT: EOMIs bilaterally, no scleral icterus CV: RRR, No concerning murmurs, heart sounds distant R: No tachypnea, no wheezing Ext: see below Skin: Sacral wound examined today; persistent tunneling noted. No surrounding warmth, no drainage. Buttocks erythematous with skin maceration, no bleeding. BLE exhibit chronically thickened skin with improved edema from admission. Mild maceration L posterior thigh, improved from previous. Scattered bruising of extremities. Neuro: No focal deficits, no resting tremor Psych: Agitated with pain, redirectable Const: Vital Signs, click to edit/add: Vital Signs - 24 hr 03/07/24 09:50 03/07/24 10:00 03/07/24 13:18 Temperature 97.5 F L Pulse Rate [Pulse Oximeter] 71 Respiratory Rate 22 Blood Pressure [Le ft Arm] Blood Pressure [Ri ght forearm] 149/82 H Pulse Oximetry 95 95 92 Oxygen Delivery Me thod Room Air Room Air 03/07/24 16:00 03/07/24 17:39 03/07/24 17:41 Temperature 97.0 F L Pulse Rate [Pulse Oximeter] 67 Respiratory Rate 20 20 20 Blood Pressure [Le ft Arm] Blood Pressure [Ri ght forearm] 160/82 H Pulse Oximetry 94 94 Oxygen Delivery Me thod Room Air Room Air 03/07/24 20:37 03/07/24 22:29 03/07/24 23:00 Temperature 97.6 F 98.8 F Pulse Rate [Pulse Oximeter] 78 72 72 Respiratory Rate 20 22 22 Blood Pressure [Le ft Arm] 151/65 H 127/69 Blood Pressure [Ri ght forearm] Pulse Oximetry 95 91 Oxygen Delivery Me thod Room Air Room Air 03/07/24 23:00 03/07/24 23:00 03/08/24 02:57 Temperature Pulse Rate [Pulse Oximeter] Respiratory Rate 20 20 22 Blood Pressure [Le ft Arm] Blood Pressure [Ri ght forearm] Pulse Oximetry 91 Oxygen Delivery Me thod Room Air 03/08/24 06:00 Temperature Pulse Rate [Pulse Oximeter] Respiratory Rate 24 Blood Pressure [Le ft Arm] Blood Pressure [Ri ght forearm] Pulse Oximetry Oxygen Delivery Me thod Labs Labs: Laboratory Results - last 24 hr 03/08/24 06:06 WBC 5.51 RBC 3.66 L Hgb 10.4 L Hct 33.7 MCV 92 MCH 28 MCHC 31 L RDW Coeff of Vilma 13.4 Plt Count 216 Neut % (Auto) 62.9 Lymph % (Auto) 20.7 [place] % (Auto) 10.7 Eos % (Auto) 4.5 Baso % (Auto) 0.5 Neut # (Auto) 3.46 Lymph # (Auto) 1.14 [place] # (Auto) 0.60 Eos # (Auto) 0.25 Baso # (Auto) 0.03 Abs Immat Gran (auto) 0.04 Imm/Tot Granulo (auto) 0.7 VBG pH 7.444 H VBG pCO2 50 VBG pO2 40.4 VBG HCO3 35 H Sodium 137 Potassium 4.5 Chloride 98 Carbon Dioxide 33 H Anion Gap 6 L BUN 20 Creatinine 1.0 Estimated Creat Clear 45.85 Estimated GFR 61 Glucose 103 Calcium 9.3
[2024-03-08] MEDS: HYDROCORTISONE 1 % CREAM 1 APPLIC TOPICAL (09:13)
[2024-03-08] MEDS: FLUTICASONE PROPIONATE NASAL 1 SPRAY NOSTRIL-B (09:13)
[2024-03-08] MEDS: DULOXETINE 30 MG CAPSULE DR 90 MG PO (09:14)
[2024-03-08] MEDS: CELECOXIB 200 MG CAPSULE PO (09:14)
[2024-03-08] MEDS: METOPROLOL SUCCINATE (XL) 50 MG TAB PO (09:15)
[2024-03-08] MEDS: TORSEMIDE 20 MG TABLET PO (09:15)
[2024-03-08] MEDS: OXYCODONE 5 MG TABLET PO (09:15)
[2024-03-08] MEDS: BUSPIRONE 10 MG TABLET PO ×2 (09:15→20:20)
[2024-03-08] MEDS: FERROUS SULFATE 325 MG TABLET PO (09:15)
[2024-03-08] MEDS: LACTOBACILLUS ACIDOPHILUS 1 TABLET 1 TAB PO (09:15)
[2024-03-08] MEDS: LIDOCAINE 5% PATCH 2 PATCH TRANSDERMA (09:16)
[2024-03-08] MEDS: SPIRONOLACTONE 25 MG TABLET PO (09:18)
[2024-03-08] MEDS: NYSTATIN POWDER 1 APPLIC TOPICAL (09:19)
[2024-03-08] MEDS: SODIUM CHLORIDE 0.9 % (FLUSH) 10 ML SYRINGE 5 ML IVF ×3 (09:19→20:22)
--- NOTE | 2024-03-08 10:56 | PC.SOCIAL ---
Addendum entered by DIANE Peacock 03/08/24 14:02: Social work: Called [facility] and spoke with management coordinator, Sarah [phone] who confirmed receipt of faxed clinical information and that they will call back to nursing with clinical question or call back with decision on admit. child protective services social worker to follow up as needed. Addendum entered by FRANSISCO Curiel 03/08/24 11:53: Discharge planning: child protective services social worker received a call from Carolann at [facility] stating they are declining the pt for admission. They are declining due to non-compliance and behavior concerns. Social work to follow-up as needed. Original Note: Discharge planning: Received call back from [facility], admitting, [phone], stating they can evaluate pt for eligibility for admission to their facility. Faxed requested information to [facility] admitting at fax # [phone]. Awaiting call back with decision on admit. child protective services social worker to follow up as needed.
[2024-03-08] MEDS: ERTAPENEM 1 GM in 0.9 % SODIUM CHLORIDE Mini-bag 100 ML IVPB (11:09)
--- NOTE | 2024-03-08 14:03 | PC.SOCIAL ---
Social work: Received email from pt's [facility] guardian, Aliyah Henson, stating she will be on vacation 03/09 to 03/13. If any guardian contact or consent is needed. Guardian contact for that time will be: Du Griffith,Guardian Services Infection Prevention Practitioner, office phone [phone] after hours 24 phone line [phone].
[2024-03-08] MEDS: ONDANSETRON ODT 4 MG TAB PO (19:33)
--- NOTE | 2024-03-08 19:43 | PC.NURSE ---
Pt is alert, oriented and is hypertensive, otherwise vitally stable. Pt reports pain ranging from 8-10/10 managed with PRN medication. Pt refusing repositioning most of the shift, though written into her care plan, that this must be done q2h when in bed or chair, pt educated. Pt leans more towards the left and refuses to be placed on her right. Pt did allow us to wash under her abdominal fold, breasts, and her po area. Intradry replaced. Dressings replaced on her buttocks, two mepilex (one over sacrum and one over left buttock.) Gutierrez catheter in place, draining appropriately. Pt states, ?staff are never in the room,? ?staff never listen to anything I say,? and ?staff never let me rest.??Behavioral plan reviewed with pt, reinforced and reminded throughout the shift.?
[2024-03-08] MEDS: ENOXAPARIN 40 MG/0.4 ML INJ SUBCUT (20:21)
[2024-03-09] VITALS (9 sets, daily range): BP systolic 111–158; BP diastolic 76–82; PULSE 62–76; RESP 18–28; TEMP 36.2–36.6; O2SAT 90–95
[2024-03-09] MEDS: LIDOCAINE 5% PATCH 1 PATCH TRANSDERMA ×2 (01:48→20:31)
--- NOTE | 2024-03-09 01:51 | PC.NURSE ---
Pt refused reposition for 2300 and 0100,
--- NOTE | 2024-03-09 04:58 | PC.NURSE ---
Shift note: Pt has been in bed throughout the shift, Alert and oriented. Pt refused all the attempt to turn and reposition her except 2300. Pt continue to cry intermittently and used the call light but will not cooperate with her request to adjust her in bed. Pt has had adequate sleep compared to last night. Pt refused nystatin powder application and the steroid cream. Gutierrez intact and draining well. Vitally stable. Restful night ensured.
[2024-03-09] MEDS: OMEPRAZOLE 20 MG CAPSULE DR PO (06:44)
[2024-03-09] MEDS: ACETAMINOPHEN 500 MG TABLET 1000 MG PO ×2 (06:44→22:49)
--- NOTE | 2024-03-09 06:47 | PC.NURSE ---
At 0630, Nurses attempt to transfer pt from to recliner was refused by pt.
--- NOTE | 2024-03-09 09:11 | PM.IMPN1 ---
Progress Note: A&P Assessment and plan (1) Adult failure to thrive: Problem details: - Failing at home without extra support; requires SNF level care for wound/skin care, therapies - amenable to SNF stay when bed available Status: Acute (2) Urinary tract infection: Problem details: - E Coli; in addition to + wound culture for Proteus, MRSA, and GBS - did not cover wound culture given clinical stability and likelihood of multi bacterial contaminant - given allergies, treated with 3 day course of Ertapenem (03/06-03/08) Status: Acute (3) Ulcer of sacral region, stage 4: Problem details: - hospitalized for this in 06/05, improved 09/2023, patient and partner reported prior resolution - as of 02/2024, stage 4 again - historically has refused surgery and debridement; General Surgery has evaluated; no current surgical needs identified, would require transfer if that were to change - medical management, offloading pressure is primary treatment at this time, in addition to wound and skin care - no evidence of acute infectious process Status: Acute (4) Metabolic alkalosis: Problem details: - noted on 03/04, likely 2/2 diuresis - 03/04: decreased Torsemide from 40mg BID --> 20mg BID, continue Spironolactone - 03/05: VBG has normalized, continue current medications and monitor - 03/07: pH increased, patient continues to have high UOP. Decreased Torsemide from 20mg BID --> 20mg once/day, d/c Potassium as well, on Spironolactone Status: Acute (5) Acute respiratory failure: Problem details: - noted after admission (03/02) overnight, primarily hypoventilation with both hypoxia and hypercarbia associated with AMS - likely combination of LAKEISHA, OHS, HFpEF, anxiety. Persistent intermittent tachypnea noted during stay without other associated features - has BIPAP available if needed and tolerated Status: Acute (6) Acute diastolic CHF (congestive heart failure): Problem details: - HFpEF with formal TTE results below (03/02/24), no obvious valvular disease or wall motion abnormality - continue diuresis, titrate GDMT as tolerated Limited Echocardiogram performed 1. Technically limited exam. 2. Normal LV size, not well visualized wall thickness (~upper limit of normal-mildly increased), normal global systolic function with an estimated EF of 60 - 65%. 3. Right ventricle is not well visualized. It appears normal in limited views. 4. No significant valve disease detected. Status: Acute (7) Obesity hypoventilation syndrome: Problem details: - likely given habitus, elevated pCO2, elevated bicarbonate. Would benefit from sleep study, CPAP/BIPAP if willing Status: Acute (8) Anxiety: Problem details: - long history of this, on Duloxetine 60mg Qday; previously on prn Lorazepam (not continuing regularly given high risk of complications) - 03/07/24: increased Duloxetine to 90mg/day, added low dose Buspirone BID Status: Chronic (9) Morbid obesity: Problem details: - chronic with BMI 58, complications include OHS - weight on discharge in 06/05 was 111kg, current weight 141kg - unclear what her weight was upon leaving [facility] - Nutrition consult, 1500 calorie diet Status: Chronic (10) Discharge planning issues: Problem details: - appreciate assistance from therapy teams and SW; emergency guardianship per [facility] obtained 03/03/24 Status: Acute (11) Chronic pain: Problem details: - previously on opioids, then buprenorphine - high risk for respiratory complications, has order for low dose Oxycodone during the day prior to cares prn - current non-opiate pain management: scheduled APAP, Celebrex, Duloxetine, Lidocaine patch, topical Aspercreme. Status: Acute (12) Chronic acquired lymphedema: Problem details: - chronic, bilateral; compression and elevation if she will tolerate - seen by lymphedema therapist 03/06 Status: Chronic Plan - per above - continue to await placement; appreciate input from therapies, nurtrition, wound care, SW teams Subjective Date Seen: 03/09/24 Interval history: Grcaia was admitted to the hospital on 02/29/24 for acute on chronic weakness and inability to care for self. She has multiple known comorbidities; primarily stage IV sacral ulcer, chronic back/left knee pain, BLE lymphedema and LLE cellulitis, and morbid obesity. She has been in and out of hospitals and [facility] facility since COVID infection in May 2023, has been home less than 4 weeks over the past 9 months. We are currently awaiting placement for Gracia. Notable findings and events since admission: 03/02: acute hypoxic respiratory failure with acidosis and hypercarbia, placed on short course of BIPAP and given Lasix for presumed fluid overload, intermittently confused 03/03: improving mentation and breathing, TTE reveals HFpEF. Diuresis initiated with Torsemide/Spironolactone 03/03: Emergency guardianship through [facility] given patient's multiple hospitalizations and SNF stays, inability to safely care for self at home 03/06: urine culture + for E Coli, wound culture from admission + for GBS, small amount of MRSA, Proteus. Given reassuring wound exam, not treating colonization. Treating UTI with Ertapenem 03/07: increased Cymbalta and Celebrex for pain management, added BID Buspar to help with anxiety and agitation surrounding cares Gracia continues to diurese (>1L/day down, has covarrubias in place to monitor Is and Os). She's working with wound care, PT, and OT; SNF stay recommended. During stay, intermittent tachypnea without CP or other symptoms. Attempting BIPAP, intolerant 2/2 claustropobia. CXR 03/06 stable. Pain has been moderately difficult to manage (historically has been on opiates and buprenorphine), we are limiting Oxycodone to low doses in the daytime given high risk for respiratory failure. Augmenting pain therapies: APAP, Lidocaine patch, Aspercreme, Cymbalta, Celecoxib. Gracia has no new concerns for hospitalist team today. Exam Narrative: Exam Narrative: GEN: Alert and sitting in bedside chair HEENT: EOMIs bilaterally, no scleral icterus CV: RRR R: LCTA bilaterally without concerning wheezing Skin: Chronic edema with erythema and thickened skin bilateral lower extremities, sacral wound not formally examined today (stable/baseline yesterday). No evidence of skin infection Neuro: No focal deficits Psych: Appropriate Const: Vital Signs, click to edit/add: Vital Signs - 24 hr 03/08/24 11:56 03/08/24 15:00 03/08/24 19:00 Temperature 99.1 F 97.6 F Pulse Rate [Pulse Oximeter] 63 72 Respiratory Rate 20 20 20 Blood Pressure [Le ft Arm] 145/85 H Blood Pressure [Ri ght forearm] 147/79 H Blood Pressure [le ft FA] Pulse Oximetry 93 92 Oxygen Delivery Me thod Room Air Room Air 03/08/24 23:00 03/08/24 23:00 03/08/24 23:00 Temperature Pulse Rate [Pulse Oximeter] Respiratory Rate 20 Blood Pressure [Le ft Arm] Blood Pressure [Ri ght forearm] Blood Pressure [le ft FA] Pulse Oximetry 93 93 Oxygen Delivery Me thod Room Air Room Air 03/08/24 23:30 03/09/24 03:00 03/09/24 06:00 Temperature Pulse Rate [Pulse Oximeter] Respiratory Rate 20 20 20 Blood Pressure [Le ft Arm] Blood Pressure [Ri ght forearm] Blood Pressure [le ft FA] Pulse Oximetry 93 Oxygen Delivery Me thod Room Air 03/09/24 08:34 03/09/24 08:34 03/09/24 08:34 Temperature Pulse Rate [Pulse Oximeter] 65 65 Respiratory Rate 28 H 28 H Blood Pressure [Le ft Arm] Blood Pressure [Ri ght forearm] Blood Pressure [le ft FA] 158/79 H Pulse Oximetry 93 93 Oxygen Delivery Mn thod Room Air Room Air
[2024-03-09] MEDS: CELECOXIB 200 MG CAPSULE PO (09:56)
[2024-03-09] MEDS: DULOXETINE 30 MG CAPSULE DR 90 MG PO (09:56)
[2024-03-09] MEDS: SPIRONOLACTONE 25 MG TABLET PO (09:57)
[2024-03-09] MEDS: LACTOBACILLUS ACIDOPHILUS 1 TABLET 1 TAB PO (09:57)
[2024-03-09] MEDS: BUSPIRONE 10 MG TABLET PO ×2 (09:58→20:28)
[2024-03-09] MEDS: OXYCODONE 5 MG TABLET PO (09:58)
[2024-03-09] MEDS: METOPROLOL SUCCINATE (XL) 50 MG TAB PO (09:58)
[2024-03-09] MEDS: FERROUS SULFATE 325 MG TABLET PO (09:58)
[2024-03-09] MEDS: FLUTICASONE PROPIONATE NASAL 1 SPRAY NOSTRIL-B (09:59)
[2024-03-09] MEDS: SODIUM CHLORIDE 0.9 % (FLUSH) 10 ML SYRINGE 5 ML IVF ×2 (10:00→20:34)
[2024-03-09] MEDS: TORSEMIDE 20 MG TABLET PO (10:27)
--- NOTE | 2024-03-09 13:43 | PC.SOCIAL ---
Addendum entered by FRANSISCO Eddy 03/09/24 14:08: Message also left with Sarah at [facility] at [phone] to see if they have made a decision on excepting pt. or not. Original Note: The remaining nursing homes for bariatric patients called on the list today. 1. [facility]- [phone], fax# [phone] (Has openings and information has been sent.) 2. [facility]- [phone]- Message left on availability 3. [facility]- [phone] Message left on availability 4. [facility] [place])- [phone] Declined pt. due to current acuity 5. [facility]-[phone] Message left on availability 6. [facility]- [phone] Will have openings next week 7. [facility]- [phone] Has no openings 8. [facility]- [phone], fax# [phone] (Has openings but pt.'s guardian declined this facility.) 9. [facility], [facility], [facility] [place], and [facility]- Message left with admissions [phone] for all those facilities. 10. [facility] [place]-[phone] Message left on availability 11. [facility]- [phone]. Message left on availability 12. [facility]- [phone]. Message left on availability 13. [facility]- [phone]. Has no openings 14. [facility] [phone] Message left on availability 15. [facility]- [phone] Message left on availability 16. [facility]ul [facility] [phone], fax# [phone] (Voicemail states to send referral, referral sent) 17. [facility]- [phone]) Voicemail states to send a referral, referral sent) 18. [facility]- [phone], fax# [phone]. ( Has openings and information has been faxed.) 19. [facility]- [phone]. Message left on availability. 20. [facility]- [phone]. Message left on availability.
--- NOTE | 2024-03-09 14:17 | PC.SOCIAL ---
Discharge planning: Received a call back from [facility] hospital admissions clerk, Sarah, stating pt is not appropriate for the LTAC unit as her wound is chronic and not acute. There were also concerns by [facility] admissions about pt's non-compliance with care that would improve her health. material requirements worker to continue to look for SNF placement as pt does not meet criteria for LTAC placement.
--- NOTE | 2024-03-09 14:19 | PC.SOCIAL ---
Discharge Planning-From Calls last week 3 facilities had potential openings. Pt.'s information was sent to these to assess. 1. [facility]- [phone] 2. [facility] [place][phone] 3, [facility]- [phone],
--- NOTE | 2024-03-09 14:27 | PC.SOCIAL ---
Discharge planning: Called pt's [employer] [place] Clerk, Ludwin [phone], requested a call back with assistance in locating a facility who can accept pt at discharge. sheetmetal worker to follow up as needed.
[2024-03-09] MEDS: NYSTATIN POWDER 1 APPLIC TOPICAL (14:31)
--- NOTE | 2024-03-09 18:42 | PC.NURSE ---
Nursing Care Hours: [id number] Pt this shift refused to get up to chair, allowed to sleep in until 0900. tolerated ceiling lift into recliner chair. Pt content and cooperative during time up in chair, no c/o. Did rate pain in back 8/10 and legs 6/10. Oxycodone given at 1000 prior to 1100 OT/PT session. OT in room with singer songwriter at 1000 discussing upcoming session and pt agreeable. 1120 OT in room to start transferring and pt became agitated and uncooperative. Pt states I finally got comfortable and have no pain, I am not moving. OT and singer songwriter discussed with pt the behavior plan and necessity to move every 2 hours to avoid further skin breakdown and weakness. Pt continues to refuse to get up. Nurse mental health case manager brought in to further discuss expectations of pt in order to meet pts healthcare goals of getting stronger. Pt continued to refuse. Sustainability Analyst assisted pt with oral cares and morning ADL while up in chair. 1230, pt c/o pain in back and tailbone and requested to move to w/c. 3 assist, pt tolerated transfer well. 1400 pt agreeable to move from w/c to bed, tolerated transfer well. Wound care and dressing changes completed. see wound assessment. Allowed to nap in bed until 1730. Sustainability Analyst ordered dinner and then brought in aid for transfer to chair. Pt initially refused transfer and said i want to stay in bed. Aid and singer songwriter both verbalized the doctors order to follow the schedule and again, reiterated the need to change position and eat up right. Pt stated whatever, i dont have a choice. Sustainability Analyst reminded pt, she always has the choice, but we are strongly encouraging her to make the choices that are going to help her move forward to getting better. Pt cooperative with transfer and in w/c for dinner. Matt patent. No BM, no c/o consitipation.
[2024-03-09] MEDS: DOCUSATE SODIUM 100 MG CAPSULE PO (20:27)
[2024-03-09] MEDS: ENOXAPARIN 40 MG/0.4 ML INJ SUBCUT (20:29)
[2024-03-09] MEDS: LIDOCAINE 5% PATCH 2 PATCH TRANSDERMA (20:30)
[2024-03-10] VITALS (7 sets, daily range): BP systolic 111–128; BP diastolic 56–71; PULSE 65–76; RESP 18–22; TEMP 36–36.3; O2SAT 93–95
[2024-03-10] MEDS: OMEPRAZOLE 20 MG CAPSULE DR PO (06:10)
[2024-03-10 06:53] LABS: HCO3 VBG 34 mmol/L (21-28); PCO2 VBG 59 mmHG (40-50); PO2 VBG 38.3 mmHG (25-47); pH VBG 7.371 (7.32-7.43)
[2024-03-10 07:02] LABS: Basophils Absolute Auto 0.03 K/uL (0.00-0.30); Basophils Percent Auto 0.6 % (0.0-3.0); Eosinophils Absolute Auto 0.29 K/uL (0.00-0.50); Eosinophils Percent Auto 6.2 % (0.0-7.0); Hematocrit 35.3 % (33.0-51.0); Hemoglobin* 10.8 gm/dL (12.0-16.0); Immature Granulocytes Abs Auto 0.05 K/uL (0.00-0.30); Immature Granulocytes Pct Auto 1.1 %; Lymphocytes Absolute Auto 1.13 K/uL (0.90-2.90); Lymphocytes Percent Auto 24.3 % (20-44); Mean Corpuscular HGB Conc 31 gm/dL (32-36); Mean Corpuscular Hemoglobin 28 pg (26-34); Mean Corpuscular Volume 92 fL (80-100); Monocytes Percent Auto 13.1 % (0.0-11.0); Neutrophils Absolute Auto 2.54 K/uL (1.7-7.0); Neutrophils Percent Auto 54.7 % (42.0-72.0); Platelet Count* 177 K/uL (140-440); RDW Coefficient of Variation % 13.3 % (11.5-15.5); Red Blood Count 3.82 m/uL (4.00-5.20); White Blood Count* 4.65 K/uL (4.50-11.00)
--- NOTE | 2024-03-10 07:14 | PC.NURSE ---
End of shift note [id number]: Pt alert & oriented x 4. VSS and pt has been afebrile. PRN Tylenol administered for c/o 8/10 LLE pain. Scheduled Lidocaine patches also in place per order. Pt has refused majority of cares this shift including: to have wraps applied, to have Nystatin Powder and Hydrocortisone applied, PRN Miralax to promote BM, Bipap and repositioning throughout the shift. Pt became irritable when approached and educated regarding importance of repositioning in bed. Pt also refused to have po cares completed or folds cleansed and dried. senior tax accountant updated. IV to R AC patent and SL. Bowel sounds noted to be hypoactive x 4. Yarn Conditioner did encourage Colace which pt was accepting to take and PRN Miralax which she refused despite education. Pt noted to be irritable when approached and educated regarding repositioning last night and again this morning when global technical writer brought AM Prilosec. Pt stating, I don't know why you people just can't let me sleep. I just want to be left alone.
[2024-03-10 07:15] LABS: Slide Review Reflex No
[2024-03-10 07:21] LABS: Chloride* 96 mmol/L (96-114); Potassium* 4.4 mmol/L (3.6-5.1); Sodium* 136 mmol/L (135-149)
[2024-03-10 07:24] LABS: Anion Gap 8 mEq/L (7-15); Blood Urea Nitrogen* 21 mg/dL (7-30); Carbon Dioxide* 32 mmol/L (20-32); Creatinine* 1.2 mg/dL (0.5-1.5); Est. Creatinine Clearance* 38.21; Estimated Glomerular Filt Rate 49 ml/min
[2024-03-10 07:25] LABS: Glucose* 92 mg/dL (60-115)
[2024-03-10] MEDS: FLUTICASONE PROPIONATE NASAL 1 SPRAY NOSTRIL-B (09:25)
[2024-03-10] MEDS: LACTOBACILLUS ACIDOPHILUS 1 TABLET 1 TAB PO (09:26)
[2024-03-10] MEDS: FERROUS SULFATE 325 MG TABLET PO (09:26)
[2024-03-10] MEDS: DULOXETINE 30 MG CAPSULE DR 90 MG PO (09:26)
[2024-03-10] MEDS: CELECOXIB 200 MG CAPSULE PO (09:26)
[2024-03-10] MEDS: TORSEMIDE 20 MG TABLET PO (09:27)
[2024-03-10] MEDS: OXYCODONE 5 MG TABLET PO ×2 (09:27→14:58)
[2024-03-10] MEDS: SPIRONOLACTONE 25 MG TABLET PO (09:28)
[2024-03-10] MEDS: SODIUM CHLORIDE 0.9 % (FLUSH) 10 ML SYRINGE 5 ML IVF ×2 (09:28→20:40)
[2024-03-10] MEDS: METOPROLOL SUCCINATE (XL) 50 MG TAB PO (09:28)
[2024-03-10] MEDS: BUSPIRONE 10 MG TABLET PO ×2 (09:29→20:37)
--- NOTE | 2024-03-10 12:46 | PM.IMPN1 ---
Progress Note: A&P Assessment and plan (1) Adult failure to thrive: Problem details: - Failing at home without extra support; requires SNF level care for wound/skin care, therapies - amenable to SNF stay when bed available Status: Acute (2) Urinary tract infection: Problem details: - E Coli; in addition to + wound culture for Proteus, MRSA, and GBS - did not cover wound culture given clinical stability and likelihood of multi bacterial contaminant - s/p treatment with 3 day course of Ertapenem (03/06-03/08) Status: Acute (3) Ulcer of sacral region, stage 4: Problem details: - hospitalized for this in 06/05, improved 09/2023, patient and partner reported prior resolution - as of 02/2024, stage 4 again - historically has refused surgery and debridement; General Surgery has evaluated; no current surgical needs identified, would require transfer if that were to change - medical management, offloading pressure is primary treatment at this time, in addition to wound and skin care - no evidence of acute infectious process Status: Acute (4) Metabolic alkalosis: Problem details: - noted on 03/04, likely 2/2 diuresis - 03/04: decreased Torsemide from 40mg BID --> 20mg BID, continue Spironolactone - 03/05: VBG has normalized, continue current medications and monitor - 03/07: pH increased, patient continues to have high UOP. Decreased Torsemide from 20mg BID --> 20mg once/day, d/c Potassium as well, on Spironolactone Status: Acute (5) Acute respiratory failure: Problem details: - noted after admission (03/02) overnight, primarily hypoventilation with both hypoxia and hypercarbia associated with AMS - likely combination of LAKEISHA, OHS, HFpEF, anxiety. Persistent intermittent tachypnea noted during stay without other associated features - has BIPAP available if needed and tolerated Status: Acute (6) Acute diastolic CHF (congestive heart failure): Problem details: - HFpEF with formal TTE results below (03/02/24), no obvious valvular disease or wall motion abnormality - continue diuresis, titrate GDMT as tolerated Limited Echocardiogram performed 1. Technically limited exam. 2. Normal LV size, not well visualized wall thickness (~upper limit of normal-mildly increased), normal global systolic function with an estimated EF of 60 - 65%. 3. Right ventricle is not well visualized. It appears normal in limited views. 4. No significant valve disease detected. Status: Acute (7) Obesity hypoventilation syndrome: Problem details: - likely given habitus, elevated pCO2, elevated bicarbonate. Would benefit from sleep study, CPAP/BIPAP if willing Status: Acute (8) Anxiety: Problem details: - long history of this, on Duloxetine 60mg Qday; previously on prn Lorazepam (not continuing regularly given high risk of complications) - 03/07/24: increased Duloxetine to 90mg/day, added low dose Buspirone BID Status: Chronic (9) Morbid obesity: Problem details: - chronic with BMI 58, complications include OHS - weight on discharge in 06/05 was 111kg, current weight 141kg - unclear what her weight was upon leaving [facility] - Nutrition consult, 1500 calorie diet Status: Chronic (10) Discharge planning issues: Problem details: - appreciate assistance from therapy teams and ; emergency guardianship per [facility] obtained 03/03/24 Status: Acute (11) Chronic pain: Problem details: - previously on opioids, then buprenorphine - high risk for respiratory complications, has order for low dose Oxycodone during the day prior to cares prn - current non-opiate pain management: scheduled APAP, Celebrex, Duloxetine, Lidocaine patch, topical Aspercreme. Status: Acute (12) Chronic acquired lymphedema: Problem details: - chronic, bilateral; compression and elevation if she will tolerate - seen by lymphedema therapist 03/06 Status: Chronic Plan - per above - awaiting placement Subjective Date Seen: 03/10/24 Interval history: Gracia was admitted to the hospital on 02/29/24 for acute on chronic weakness and inability to care for self. She has multiple known comorbidities; primarily stage IV sacral ulcer, chronic back/left knee pain, BLE lymphedema and LLE cellulitis, and morbid obesity. She has been in and out of hospitals and retirement facility since COVID infection in May 2023, has been home less than 4 weeks over the past 9 months. We are currently awaiting placement for Gracia. Notable findings and events since admission: 03/02: acute hypoxic respiratory failure with acidosis and hypercarbia, placed on short course of BIPAP and given Lasix for presumed fluid overload, intermittently confused 03/03: improving mentation and breathing, TTE reveals HFpEF. Diuresis initiated with Torsemide/Spironolactone 03/03: Emergency guardianship through [facility] given patient's multiple hospitalizations and SNF stays, inability to safely care for self at home 03/06: urine culture + for E Coli, wound culture from admission + for GBS, small amount of MRSA, Proteus. Given reassuring wound exam, did not treat colonization. s/p 3 days of IV Ertapenem 03/07: increased Cymbalta and Celebrex for pain management, added BID Buspar to help with anxiety and agitation surrounding cares Gracia continues to diurese (down 5-7kg from admission, has covarrubias in place to monitor Is and Os). Working with wound care, PT, and OT; SNF stay recommended. During stay, intermittent tachypnea without CP or other symptoms. Attempting intermittent BIPAP, intolerant 2/2 claustropobia. CXR 03/06 stable. Pain has been moderately difficult to manage (historically has been on opiates and buprenorphine), we are limiting Oxycodone to low doses in the daytime given high risk for respiratory failure. Augmenting pain therapies: APAP, Lidocaine patch, Aspercreme, Cymbalta, Celecoxib. Gracia has no new concerns for hospitalist team today. Labs and VS are stable/baseline. Exam Narrative: Exam Narrative: GEN: Alert and oriented, sitting in bedside chair HEENT: EOMIs bilaterally, no scleral icterus CV: RRR, No concerning murmurs R: LCTA bilaterally without concerning wheezing Ext: BLE edema is chronic, but improved from admission. Thickened skin with mild erythema, also chronic. No evidence of acute cellulitis Skin: Bruising scattered over BUEs, unchanged. Sacral wound not formally examined today (stable, per nursing staff) Const: Vital Signs, click to edit/add: Vital Signs - 24 hr 03/09/24 15:00 03/09/24 15:00 03/09/24 15:00 Temperature 97.8 F Pulse Rate [Pulse Oximeter] 69 62 Respiratory Rate 20 20 20 Blood Pressure [le ft FA] 117/76 Pulse Oximetry 93 93 Oxygen Delivery Me thod Room Air Room Air 03/09/24 19:31 03/09/24 23:00 03/09/24 23:07 Temperature 97.2 F L Pulse Rate [Pulse Oximeter] 76 76 Respiratory Rate 20 18 18 Blood Pressure [le ft FA] 111/82 Pulse Oximetry 95 Oxygen Delivery Me thod Room Air 03/09/24 23:07 03/09/24 23:08 03/10/24 03:27 Temperature Pulse Rate [Pulse Oximeter] Respiratory Rate 18 18 20 Blood Pressure [le ft FA] Pulse Oximetry Oxygen Delivery Me thod 03/10/24 06:00 03/10/24 09:25 03/10/24 09:25 Temperature Pulse Rate [Pulse Oximeter] 76 Respiratory Rate 18 20 20 Blood Pressure [le ft FA] Pulse Oximetry 95 Oxygen Delivery Me thod Room Air 03/10/24 09:25 Temperature 96.8 F L Pulse Rate [Pulse Oximeter] 76 Respiratory Rate 20 Blood Pressure [le ft FA] 119/71 Pulse Oximetry 95 Oxygen Delivery Me thod Room Air Labs Labs: Laboratory Results - last 24 hr 03/10/24 06:35 WBC 4.65 RBC 3.82 L Hgb 10.8 L Hct 35.3 MCV 92 MCH 28 MCHC 31 L RDW Coeff of Vilma 13.3 Plt Count 177 Neut % (Auto) 54.7 Lymph % (Auto) 24.3 [place] % (Auto) 13.1 H Eos % (Auto) 6.2 Baso % (Auto) 0.6 Neut # (Auto) 2.54 Lymph # (Auto) 1.13 [place] # (Auto) 0.60 Eos # (Auto) 0.29 Baso # (Auto) 0.03 Abs Immat Gran (auto) 0.05 Imm/Tot Granulo (auto) 1.1 VBG pH 7.371 VBG pCO2 59 H VBG pO2 38.3 VBG HCO3 34 H Sodium 136 Potassium 4.4 Chloride 96 Carbon Dioxide 32 Anion Gap 8 BUN 21 Creatinine 1.2 Estimated Creat Clear 38.21 Estimated GFR 49 Glucose 92 Calcium 9.0
[2024-03-10] MEDS: HYDROCORTISONE 1 % CREAM 1 APPLIC TOPICAL ×2 (14:50→20:39)
--- NOTE | 2024-03-10 16:39 | PC.SOCIAL ---
Discharge planning: sanitation worker cleaning equipment called pt's [employer] case liner Ludwin at [phone]. Ludwin emailed list of SNF suggestions to this social worker health services. There were no facilities on this list that social worker health services had not already tried. Ludwin clarified that Medica case worker have no resources or connection with facilities and do not contact facilities for placement. Ludwin requested an update when placement is located by hospital social worker health services. The list below is a complete list of all the care home and LTAC facilities contacted regarding placement with the listed results. The final 9 facilities were contacted today 03/10/24, the others had been contacted previous days as noted in previous notes. sanitation worker cleaning equipment to continue to look for appropriate facility placement. 1. [facility]-[phone], Faxed # [phone] 2. [facility]- declined pt due to needs. 3. [facility]- [phone]- message left 4. [facility]-[phone] Message left. 5. [facility]- [phone] Message left. 6. [facility]- [phone]. Has no openings (03/02) 7. [facility] and [place] [facility]- [phone]. Message left. 8. [facility]- [phone]. Message left. 9. [facility]- [phone]. No beds (03/02) 10. [facility]-[phone] Message left. 11. [facility]-declined based on need. 12. [facility] [place] [phone], Faxed#[phone]. 13. [facility] [phone] [facility], Faxed # [phone] 14. [facility] - [phone] left message requesting call back. 15. [facility]- [phone] cannot meet needs of patient due to weight. 16. [facility] - no bed available (03/06). 17. [facility] - facility permanently closed. 18. [facility] - facility permanently closed. 19. [facility] - [phone] left message requesting call back. 20. [facility] - [phone] - only bariatric bed is not available (03/06), so can not meet pt needs. 21. [facility] - [phone] - left message requesting call back. 22. [facility] - [phone] - left message requesting call back. 24. [place] facilities - secure emailed referral to Cammie in admitting for evaluation for admit to any facility in the entire [place] facility system. 25. [facility]- declined due to pt not meeting ?acute? criteria. 25. [facility]- [phone], faxed# [phone] 26. [facility]- [phone]- Message left on availability 27. [facility]- [phone] Message left on availability 28. [facility] [place])- [phone] Declined pt. due to current acuity 29. [facility]-[phone] Message left on availability 30. [facility]- [phone] no beds (03/09) 31. [facility]- [phone] ? no beds (03/09) 32. [facility]- [phone], fax# [phone] (Has openings but pt.'s guardian declined this facility.) 33. [facility], [facility] [place], and [facility]- Message left with admissions [phone] for all those facilities. 34. [facility]-[phone] Message left on availability 35. [facility]- [phone]. Message left on availability 36. [facility]- [phone]. Message left on availability 37. [facility]- [phone]. Has no openings (03/09) 38. [facility] [phone] Message left on availability 39. [facility]- [phone] Message left on availability 40. [facility] [phone], faxed # [phone] 41. [facility]- [phone]- Voicemail states to send a referral, referral sent 42. [facility]- [phone], faxed # [phone]. 43. [facility]- [phone]. Message left on availability. 44. [facility]- [phone]. Message left on availability. 45. [facility] [phone] Message left on availability. 46. [facility] [phone] ? no beds (03/10) 47. [facility] [phone] Message left on availability. 48. [facility] [phone] no beds (03/10) 49. [facility] [phone] Message left on availability. 50. [facility] [phone] info faxed to [phone]. 51. [facility] [phone] Message left on availability. 52. [facility] [phone] Message left on availability. 53. [facility] [phone] Message left on availability.
--- NOTE | 2024-03-10 18:59 | PC.NURSE ---
End of shift 1055-5910: Pt has been overall cooperative with most of her cares. She did refuse BLL wound cares & skin care but allowed RN to change sacral dressing. Left buttock dressing removed & blisters are ROBIN d/t pt c/o itching. ?A&O, VSS and afebrile throughout this shift. Pt was allowed to sleep in until 0900 which helped her mood in the AM. She was up in the W/C from 0930- 1330 and refused to get back into the W/C for her evening meal. RN educated pt on the importance of repositioning & weight shifting but she continued to refuse, respectfully. Contact precautions continued for MRSA in ?her wounds. PIV in right AC SL and C/D/I. Gutierrez catheter intact & draining clear, straw colored urine. Total output: 600 mL. Pt is on 1500cal diet which she does not enjoy but complies. PRN oxycodone given twice today for lower back pain, last given @ 1500. Mepilex to bilateral posterior calves are intact. SW continuing to work on SNF placement for D/C.?
[2024-03-10] MEDS: DOCUSATE SODIUM 100 MG CAPSULE PO (20:37)
[2024-03-10] MEDS: ACETAMINOPHEN 500 MG TABLET 1000 MG PO (20:38)
[2024-03-10] MEDS: LIDOCAINE 5% PATCH 2 PATCH TRANSDERMA (20:38)
[2024-03-10] MEDS: LIDOCAINE 5% PATCH 1 PATCH TRANSDERMA (20:39)
[2024-03-10] MEDS: ENOXAPARIN 40 MG/0.4 ML INJ SUBCUT (20:40)
[2024-03-11] MEDS: OMEPRAZOLE 20 MG CAPSULE DR PO (06:01)
--- NOTE | 2024-03-11 06:38 | PC.NURSE ---
End of hsift report [id number]: Cooperative with cares, patient requesting repositioning throughout the evening. Patient able to make small adjustments in position to offload. Reporting itching to left buttock, when patient turned there was a rolled up hand towel under buttock, comic book writer removed hand towel, straightened chux pads and hydrocortisone cream applied to mid left buttock and to gluteal crease per patient request for itching. Sacral dressing intact. Pain to low back well managed with lidocaine patches, tylenol and repositioning. Declined ice packs or Aqua-k pad for comfort. Gutierrez catheter patent, draining clear yellow urine. Agreed to taking prn colace due to no documented BM since 02/28, bowel sounds active, denies feeling constipated. Gracia reports that she has had several bouts of constipation and that she drinks mandi juice to ease constipation, bottle labeled and in patient fridge in kitchenette. Declined bipap at HS.
[2024-03-11 08:29] VITALS: BP 134/73; PULSE 70; RESP 20; TEMP 36.3; O2SAT 92
[2024-03-11] MEDS: NYSTATIN POWDER 1 APPLIC TOPICAL (08:34)
[2024-03-11] MEDS: CELECOXIB 200 MG CAPSULE PO (08:34)
[2024-03-11] MEDS: DULOXETINE 30 MG CAPSULE DR 90 MG PO (08:34)
[2024-03-11] MEDS: SODIUM CHLORIDE 0.9 % (FLUSH) 10 ML SYRINGE 5 ML IVF ×2 (08:35→20:50)
[2024-03-11] MEDS: BUSPIRONE 10 MG TABLET PO ×2 (08:35→20:47)
[2024-03-11] MEDS: TORSEMIDE 20 MG TABLET PO (08:35)
[2024-03-11] MEDS: SPIRONOLACTONE 25 MG TABLET PO (08:35)
[2024-03-11] MEDS: FERROUS SULFATE 325 MG TABLET PO (08:35)
[2024-03-11] MEDS: METOPROLOL SUCCINATE (XL) 50 MG TAB PO (08:35)
[2024-03-11] MEDS: LACTOBACILLUS ACIDOPHILUS 1 TABLET 1 TAB PO (08:35)
[2024-03-11] MEDS: FLUTICASONE PROPIONATE NASAL 1 SPRAY NOSTRIL-B (08:35)
[2024-03-11] MEDS: HYDROCORTISONE 1 % CREAM 1 APPLIC TOPICAL (08:36)
[2024-03-11] MEDS: ACETAMINOPHEN 500 MG TABLET 1000 MG PO ×2 (11:01→20:47)
[2024-03-11] MEDS: OXYCODONE 5 MG TABLET PO (11:01)
--- NOTE | 2024-03-11 11:34 | P.IMPN_ITS ---
Progress Note: A&P Assessment and plan (1) Adult failure to thrive: Problem details: - Failing at home without extra support; requires SNF level care for wound/skin care, therapies - amenable to SNF stay when bed available Status: Acute (2) Urinary tract infection: Problem details: - E Coli; in addition to + wound culture for Proteus, MRSA, and GBS - did not cover wound culture given clinical stability and likelihood of multi bacterial contaminant - s/p treatment with 3 day course of Ertapenem (03/06-03/08) Status: Resolved (3) Ulcer of sacral region, stage 4: Problem details: - hospitalized for this in 06/05, improved 09/2023, patient and partner reported prior resolution - as of 02/2024, stage 4 again - historically has refused surgery and debridement; General Surgery has evaluated; no current surgical needs identified, would require transfer if that were to change - medical management, offloading pressure is primary treatment at this time, in addition to wound and skin care - no evidence of acute infectious process Status: Chronic (4) Metabolic alkalosis: Problem details: - noted on 03/04, likely 2/2 diuresis - 03/04: decreased Torsemide from 40mg BID --> 20mg BID, continue Spironolactone - 03/05: VBG has normalized, continue current medications and monitor - 03/07: pH increased, patient continues to have high UOP. Decreased Torsemide from 20mg BID --> 20mg once/day, d/c Potassium as well, on Spironolactone Status: Resolved (5) Acute respiratory failure: Problem details: - noted after admission (03/02) overnight, primarily hypoventilation with both hypoxia and hypercarbia associated with AMS - likely combination of LAKEISHA, OHS, HFpEF, anxiety. Persistent intermittent tach ypnea noted during stay without other associated features - has BIPAP available if needed and tolerated Status: Resolved (6) Acute diastolic CHF (congestive heart failure): Problem details: - HFpEF with formal TTE results below (03/02/24), no obvious valvular disease or wall motion abnormality - continue diuresis, titrate GDMT as tolerated Limited Echocardiogram performed 1. Technically limited exam. 2. Normal LV size, not well visualized wall thickness (~upper limit of normal- mildly increased), normal global systolic function with an estimated EF of 60 - 65%. 3. Right ventricle is not well visualized. It appears normal in limited views. 4. No significant valve disease detected. Status: Acute (7) Obesity hypoventilation syndrome: Problem details: - likely given habitus, elevated pCO2, elevated bicarbonate. Would benefit from sleep study, CPAP/BIPAP if willing Status: Chronic (8) Anxiety: Problem details: - long history of this, on Duloxetine 60mg Qday; previously on prn Lorazepam (not continuing regularly given high risk of complications) - 03/07/24: increased Duloxetine to 90mg/day, added low dose Buspirone BID Status: Chronic (9) Morbid obesity: Problem details: - chronic with BMI 58, complications include OHS - weight on discharge in 06/05 was 111kg, current weight 141kg - unclear what her weight was upon leaving [facility] SNF - Nutrition consult, 1500 calorie diet Status: Chronic (10) Discharge planning issues: Problem details: - appreciate assistance from therapy teams and ; emergency guardianship per [facility] obtained 03/03/24 Status: Acute (11) Chronic pain: Problem details: - previously on opioids, then buprenorphine - high risk for respiratory complications, has order for low dose Oxycodone during the day prior to cares prn - current non-opiate pain management: scheduled APAP, Celebrex, Duloxetine, Lidocaine patch, topical Aspercreme. Status: Chronic (12) Chronic acquired lymphedema: Problem details: - chronic, bilateral; compression and elevation if she will tolerate - seen by lymphedema therapist 03/06 Status: Chronic Plan 68 y/o female with frequent readmissions for acute on chronic weakness and inability to care for self. She has significant bilateral lower extremity lymphedema and a chronic stage IV sacral ulcer. Her medical condition has improved and stabilized since admission. She has a emergency guardianship in place, is on a calorie restricted diet, working with therapies, and awaiting placement. Subjective Time Seen by Provider: 11:05 Date Seen: 03/11/24 Interval history: Date Seen: 03/11/24 Interval history: Gracia was admitted to the hospital on 02/29/24 for acute on chronic weakness and inability to care for self. She has multiple known comorbidities; primarily stage IV sacral ulcer, chronic back/left knee pain, BLE lymphedema and LLE cellulitis, and morbid obesity. She has been in and out of hospitals and long term facility since COVID infection in May 2023, has been home less than 4 weeks over the past 9 months. We are currently awaiting placement for Gracia. Notable findings and events since admission: 03/02: acute hypoxic respiratory failure with acidosis and hypercarbia, placed on short course of BIPAP and given Lasix for presumed fluid overload, intermittently confused 03/03: improving mentation and breathing, TTE reveals HFpEF. Diuresis initiated with Torsemide/Spironolactone 03/03: Emergency guardianship through [facility] given patient's multiple hospitalizations and SNF stays, inability to safely care for self at home 03/06: urine culture + for E Coli, wound culture from admission + for GBS, small amount of MRSA, Proteus. Given reassuring wound exam, did not treat colonization. s/p 3 days of IV Ertapenem 03/07: increased Cymbalta and Celebrex for pain management, added BID Buspar to help with anxiety and agitation surrounding cares Gracia continues to diurese (down 5-7kg from admission, has covarrubias in place to monitor Is and Os). Working with wound care, PT, and OT; SNF stay recommended. During stay, intermittent tachypnea without CP or other symptoms. Attempting intermittent BIPAP, intolerant 2/2 claustropobia. CXR 03/06 stable. Pain has been moderately difficult to manage (historically has been on opiates and buprenorphine), we are limiting Oxycodone to low doses in the daytime given high risk for respiratory failure. Augmenting pain therapies: APAP, Lidocaine patch, Aspercreme, Cymbalta, Celecoxib. 03/11 Weight is 123kg today (135kg yesterday); I question the accuracy of this - will see what it is tomorrow. Gracia tells me she doesn't like the restricted diet because she feels she doesn't get any meat, but then she tells me she has a ham or chicken sandwich every day for lunch. When I pointed out that this is meat, she said she wants hill. Staff is asking to adjust VS checks and assessments to a less frequent schedule for patient comfort. VS are notably stable/baseline. Exam Narrative: Exam Narrative: General: No acute distress. Awake, alert, oriented. Sitting in bedside chair. No pallor. No jaundice. Oropharynx: Clear. Mucous membranes moist. Cardiovascular: Regular rate and rhythm. No murmurs, gallops, or rubs. Respiratory: Clear to auscultation bilaterally. No wheezes or crackles. Abdomen: Bowel sounds present. Soft, nondistended, nontender. Extremities: Chronic bilateral lower extremity lymphedema, unchanged. Const: Vital Signs, click to edit/add: Vital Signs - 24 hr 03/10/24 15:00 03/10/24 15:00 03/10/24 15:00 Temperature 97.3 F L Pulse Rate [Pulse Oximeter] 65 65 Respiratory Rate 20 20 20 Blood Pressure [Ri ght forearm] 111/56 L Blood Pressure [le ft FA] Pulse Oximetry 94 94 Oxygen Delivery Me thod Room Air Room Air 03/10/24 19:00 03/10/24 23:00 03/10/24 23:00 Temperature 97.0 F L Pulse Rate [Pulse Oximeter] 67 67 Respiratory Rate 22 22 Blood Pressure [Ri ght forearm] 128/57 L Blood Pressure [le ft FA] Pulse Oximetry 93 93 Oxygen Delivery Me thod Room Air Room Air 03/10/24 23:30 03/11/24 08:29 03/11/24 08:29 Temperature 97.3 F L Pulse Rate [Pulse Oximeter] 70 Respiratory Rate 20 20 20 Blood Pressure [Ri ght forearm] Blood Pressure [le ft FA] 134/73 Pulse Oximetry 92 92 Oxygen Delivery Me thod Room Air Room Air
[2024-03-11 15:20] VITALS: RESP 20
[2024-03-11] MEDS: DOCUSATE SODIUM 100 MG CAPSULE PO (20:47)
[2024-03-11] MEDS: LIDOCAINE 5% PATCH 1 PATCH TRANSDERMA (20:49)
[2024-03-11] MEDS: LIDOCAINE 5% PATCH 2 PATCH TRANSDERMA (20:49)
[2024-03-11] MEDS: ENOXAPARIN 40 MG/0.4 ML INJ SUBCUT (20:51)
[2024-03-11 22:01] VITALS: BP 108/52; PULSE 77; RESP 20; TEMP 36.3; O2SAT 93
[2024-03-11 22:08] VITALS: RESP 20; O2SAT 93
[2024-03-11 22:47] VITALS: RESP 20
[2024-03-12] VITALS (7 sets, daily range): BP systolic 113–145; BP diastolic 54–72; PULSE 70–73; RESP 18–22; TEMP 36–36.4; O2SAT 94–96
[2024-03-12] MEDS: ACETAMINOPHEN 500 MG TABLET 1000 MG PO ×2 (06:25→15:35)
[2024-03-12] MEDS: OMEPRAZOLE 20 MG CAPSULE DR PO (06:25)
--- NOTE | 2024-03-12 06:46 | PC.NURSE ---
End of shift note [id number]: Pt alert & oriented x 4. VSS. Pt has been afebrile and on RA throughout the shift. She has refused to wear Bipap overnight despite encouragement. Wound care performed to sacral wound last evening per order. Pt requires ceiling lift and assist of 3 for transferring in and out of bed. PRN Tylenol given for c/o back pain along with use of scheduled Lidocaine patches. IV to R AC patent and SL. Pt has refused wraps to BLEs, PRN Miralax to encourage BM, Bipap, repositioning, offloading of bilateral lower extremities, Nystatin powder and po cares at HS despite encouragement, education and reapproaching. Gutierrez catheter in place. No BM this shift. Solar Energy System Installer did administer PRN Colace and encouraged po fluids though pt willing to drink only Sprite instead of water. Pt had one episode of yelling out at staff last evening when staff were attempting to explain the importance of repositioning to prevent further skin breakdown and to help heal current wounds/skin concerns. She did later apologize to staff. Dressings to BLEs C/D/I.
[2024-03-12] MEDS: OXYCODONE 5 MG TABLET PO ×2 (08:35→18:32)
[2024-03-12] MEDS: LACTOBACILLUS ACIDOPHILUS 1 TABLET 1 TAB PO (08:35)
[2024-03-12] MEDS: DULOXETINE 30 MG CAPSULE DR 90 MG PO (08:35)
[2024-03-12] MEDS: FERROUS SULFATE 325 MG TABLET PO (08:36)
[2024-03-12] MEDS: METOPROLOL SUCCINATE (XL) 50 MG TAB PO (08:36)
[2024-03-12] MEDS: BUSPIRONE 10 MG TABLET PO ×2 (08:36→20:43)
[2024-03-12] MEDS: FLUTICASONE PROPIONATE NASAL 1 SPRAY NOSTRIL-B (08:36)
[2024-03-12] MEDS: TORSEMIDE 20 MG TABLET PO (08:36)
[2024-03-12] MEDS: CELECOXIB 200 MG CAPSULE PO (08:36)
[2024-03-12] MEDS: SPIRONOLACTONE 25 MG TABLET PO (08:36)
[2024-03-12] MEDS: NYSTATIN POWDER 1 APPLIC TOPICAL ×2 (08:37→20:16)
[2024-03-12] MEDS: polyethylene glycoL 3350 17 GM PACK PO (08:37)
[2024-03-12] MEDS: SODIUM CHLORIDE 0.9 % (FLUSH) 10 ML SYRINGE 5 ML IVF ×2 (08:37→20:39)
--- NOTE | 2024-03-12 09:43 | P.IMPN_ITS ---
Progress Note: A&P Assessment and plan (1) Adult failure to thrive: Problem details: - Failing at home without extra support; requires SNF level care for wound/skin care, therapies - amenable to SNF stay when bed available Status: Acute (2) Urinary tract infection: Problem details: - E Coli; in addition to + wound culture for Proteus, MRSA, and GBS - did not cover wound culture given clinical stability and likelihood of multi bacterial contaminant - s/p treatment with 3 day course of Ertapenem (03/06-03/08) Status: Resolved (3) Ulcer of sacral region, stage 4: Problem details: - hospitalized for this in 06/05, improved 09/2023, patient and partner reported prior resolution - as of 02/2024, stage 4 again - historically has refused surgery and debridement; General Surgery has evaluated; no current surgical needs identified, would require transfer if that were to change - medical management, offloading pressure is primary treatment at this time, in addition to wound and skin care - no evidence of acute infectious process Status: Chronic (4) Metabolic alkalosis: Problem details: - noted on 03/04, likely 2/2 diuresis - 03/04: decreased Torsemide from 40mg BID --> 20mg BID, continue Spironolactone - 03/05: VBG has normalized, continue current medications and monitor - 03/07: pH increased, patient continues to have high UOP. Decreased Torsemide from 20mg BID --> 20mg once/day, d/c Potassium as well, on Spironolactone Status: Resolved (5) Acute respiratory failure: Problem details: - noted after admission (03/02) overnight, primarily hypoventilation with both hypoxia and hypercarbia associated with AMS - likely combination of LAKEISHA, OHS, HFpEF, anxiety. Persistent intermittent tach ypnea noted during stay without other associated features - has BIPAP available if needed and tolerated Status: Resolved (6) Acute diastolic CHF (congestive heart failure): Problem details: - HFpEF with formal TTE results below (03/02/24), no obvious valvular disease or wall motion abnormality - continue diuresis, titrate GDMT as tolerated Limited Echocardiogram performed 1. Technically limited exam. 2. Normal LV size, not well visualized wall thickness (~upper limit of normal- mildly increased), normal global systolic function with an estimated EF of 60 - 65%. 3. Right ventricle is not well visualized. It appears normal in limited views. 4. No significant valve disease detected. Status: Acute (7) Obesity hypoventilation syndrome: Problem details: - likely given habitus, elevated pCO2, elevated bicarbonate. Would benefit from sleep study, CPAP/BIPAP if willing Status: Chronic (8) Anxiety: Problem details: - long history of this, on Duloxetine 60mg Qday; previously on prn Lorazepam (not continuing regularly given high risk of complications) - 03/07/24: increased Duloxetine to 90mg/day, added low dose Buspirone BID Status: Chronic (9) Morbid obesity: Problem details: - chronic with BMI 58, complications include OHS - weight on discharge in 06/05 was 111kg, current weight 141kg - unclear what her weight was upon leaving [facility] SNF - Nutrition consult, 1500 calorie diet Status: Chronic (10) Discharge planning issues: Problem details: - appreciate assistance from therapy teams and SW; emergency guardianship through [facility] obtained 03/03/24 Status: Acute (11) Chronic pain: Problem details: - previously on opioids, then buprenorphine - high risk for respiratory complications, has order for low dose Oxycodone during the day prior to cares prn - current non-opiate pain management: scheduled APAP, Celebrex, Duloxetine, Lidocaine patch, topical Aspercreme. - continue PT and OT for core strengthening Status: Chronic (12) Chronic acquired lymphedema: Problem details: - chronic, bilateral; compression and elevation if she will tolerate - seen by lymphedema therapist 03/06 - Patient is refusing leg wraps Status: Chronic Plan 68 y/o female with frequent readmissions for acute on chronic weakness and inability to care for self. She has significant bilateral lower extremity lymphedema and a chronic stage IV sacral ulcer. Her medical condition has improved and stabilized since admission. She has a emergency guardianship in place, is on a calorie restricted diet, working with therapies, and awaiting placement. Subjective Time Seen by Provider: 09:13 Date Seen: 03/12/24 Interval history: Gracia complains of back pain. My whole back hurts. She does not want to sit up in the chair at all. She complains that the david lift is hard on her back and only wants to use the EZ stand, which she says she was able to do last time she was in rehab. Exam Narrative: Exam Narrative: General: No acute distress. Awake, alert, oriented. Laying comfortably turned to her left in bed. Oropharynx: Clear. Mucous membranes moist. Cardiovascular: Regular rate and rhythm. No murmurs, gallops, or rubs. Respiratory: Clear to auscultation bilaterally. No wheezes or crackles. Abdomen: Bowel sounds present. Soft, nondistended, nontender. Extremities: Chronic bilateral lower extremity lymphedema, unchanged. No erythema. Const: Vital Signs, click to edit/add: Vital Signs - 24 hr 03/11/24 15:20 03/11/24 22:01 03/11/24 22:08 Temperature 97.3 F L Pulse Rate [Pulse Oximeter] 77 Respiratory Rate 20 20 20 Blood Pressure [Ri ght forearm] 108/52 L Pulse Oximetry 93 93 Oxygen Delivery Me thod Room Air Room Air 03/11/24 22:47 03/12/24 06:00 03/12/24 07:00 Temperature 97.6 F Pulse Rate [Pulse Oximeter] 73 Respiratory Rate 20 20 20 Blood Pressure [Ri ght forearm] 145/72 H Pulse Oximetry 94 Oxygen Delivery Me thod Room Air 03/12/24 07:00 Temperature Pulse Rate [Pulse Oximeter] Respiratory Rate Blood Pressure [Ri ght forearm] Pulse Oximetry 94 Oxygen Delivery Me thod Room Air
--- NOTE | 2024-03-12 19:25 | PC.NURSE ---
End of Shift: Patient c/o back pain this AM 8/10 and PRN Oxycodone given. Patient declined to get up in chair d/t pain. Offered reposition, Aspercreme and ice in addition to pain medication, declined stating I know you can't force me to do anything. Patient agreed to get up to chair for lunch. Up with 3 assist and ceiling lift. Bed bath given and nystatin powder applied. Patient refused to be repositioned on to right side while in bed, education/reinforcement on importance of repositioning for skin and possible pain relief. PRN Tylenol given x1. Tolerating regular diet with no nausea. No BM, patient offered PRN Miralax and pt agreed, denies feeling of constipation. Gutierrez patent.
[2024-03-12] MEDS: LIDOCAINE 5% PATCH 1 PATCH TRANSDERMA (20:13)
[2024-03-12] MEDS: LIDOCAINE 5% PATCH 2 PATCH TRANSDERMA (20:20)
[2024-03-12] MEDS: ENOXAPARIN 40 MG/0.4 ML INJ SUBCUT (20:42)
--- NOTE | 2024-03-12 22:37 | PC.NURSE ---
Parts Assembler updated MD Carcamo regarding date of pt's last BM unknown. Pt does not recall when asked though denies abdominal pain when asked. Abdomen noted to be soft, non-distended and bowel sounds are active x 4. PO fluids encouraged. Parts Assembler also encouraged PRN Colace/further bowel medication at HS though pt refused when educated. Pt did take PRN Miralax this AM. Pt states, I think I will go tomorrow morning. It feels like it anyway.
[2024-03-13 06:00] VITALS: RESP 18
[2024-03-13] MEDS: OMEPRAZOLE 20 MG CAPSULE DR PO (06:10)
--- NOTE | 2024-03-13 06:47 | PC.NURSE ---
End of shift note [id number]: Pt alert & oriented x 4. VSS. Pt has been afebrile and on RA throughout the shift. Pt has refused the following cares/interventions despite encouragement, education and reapproaching from staff: PRN Colace to promote BM, Bipap, Wraps to BLEs and repositioning for most of shift. She did allow staff to put a pillow under RLE though would not allow LLE to be floated to prevent pressure to LE. IV to R AC patent and SL. Wound care completed to sacral and buttock wounds last evening. Sacral/buttock wounds covered with Mepilex dressings as ABD dressing does not stay in place. Pt refused to roll to right side all shift despite encouragement, education and reapproaching by multiple nurses. She would not allow staff to place dry lift sheet underneath her. RN noted lift sheet to be slightly moist underneath her though pt refused to have lift sheet changed as she would not roll to right side. Pt requested brief be placed under her in case she had incontinent BM though would not roll to right side to have brief pulled to other side despite encouragement, education and reapproaching from RN. Pt did allow conventional underwriter to perform po cares to abdominal/groin folds at HS and apply Nystatin to treat current reddened folds/yeasty odor. Pt exclaiming to staff, ?I can?t!? referring to not being able to roll in bed despite staff informing her that staff can assist her with rolling in bed and use of trapeze to assist. Pt stating, ?I can?t!? before attempting task. ?
[2024-03-13] MEDS: ONDANSETRON ODT 4 MG TAB PO (08:01)
[2024-03-13] MEDS: FERROUS SULFATE 325 MG TABLET PO (09:04)
[2024-03-13] MEDS: CELECOXIB 200 MG CAPSULE PO (09:04)
[2024-03-13] MEDS: DULOXETINE 30 MG CAPSULE DR 90 MG PO (09:04)
[2024-03-13] MEDS: TORSEMIDE 20 MG TABLET PO (09:05)
[2024-03-13] MEDS: METOPROLOL SUCCINATE (XL) 50 MG TAB PO (09:05)
[2024-03-13] MEDS: LACTOBACILLUS ACIDOPHILUS 1 TABLET 1 TAB PO (09:05)
[2024-03-13] MEDS: BUSPIRONE 10 MG TABLET PO ×2 (09:05→21:36)
[2024-03-13] MEDS: FLUTICASONE PROPIONATE NASAL 1 SPRAY NOSTRIL-B (09:06)
[2024-03-13] MEDS: SODIUM CHLORIDE 0.9 % (FLUSH) 10 ML SYRINGE 5 ML IVF ×2 (09:07→21:37)
[2024-03-13] MEDS: polyethylene glycoL 3350 17 GM PACK PO (09:11)
[2024-03-13] MEDS: DOCUSATE SODIUM 100 MG CAPSULE PO (09:11)
[2024-03-13] MEDS: SPIRONOLACTONE 25 MG TABLET PO (09:12)
[2024-03-13 09:30] VITALS: BP 123/57; PULSE 71; RESP 20; TEMP 36.8; O2SAT 94
[2024-03-13 10:00] VITALS: PULSE 71; RESP 20
--- NOTE | 2024-03-13 10:26 | PM.IMPN1 ---
Progress Note: A&P Assessment and plan (1) Adult failure to thrive: Problem details: - Failing at home without extra support; requires SNF level care for wound/skin care, therapies - amenable to SNF stay when bed available Status: Acute (2) Urinary tract infection: Problem details: RESOLVED - E Coli; in addition to + wound culture for Proteus, MRSA, and GBS - did not cover wound culture given clinical stability and likelihood of multi bacterial contaminant - s/p treatment with 3 day course of Ertapenem (03/06-03/08) Status: Resolved (3) Ulcer of sacral region, stage 4: Problem details: - hospitalized for this in 06/05, improved 09/2023, patient and partner reported prior resolution - as of 02/2024, stage 4 again - historically has refused surgery and debridement; General Surgery has evaluated; no current surgical needs identified, would require transfer if that were to change - medical management, offloading pressure is primary treatment at this time, in addition to wound and skin care - no evidence of acute infectious process Status: Chronic (4) Metabolic alkalosis: Problem details: RESOLVED - noted on 03/04, likely 2/2 diuresis - 03/04: decreased Torsemide from 40mg BID --> 20mg BID, continue Spironolactone - 03/05: VBG has normalized, continue current medications and monitor - 03/07: pH increased, patient continues to have high UOP. Decreased Torsemide from 20mg BID --> 20mg once/day, d/c Potassium as well, on Spironolactone Status: Resolved (5) Acute respiratory failure: Problem details: RESOLVED - noted after admission (03/02) overnight, primarily hypoventilation with both hypoxia and hypercarbia associated with AMS - likely combination of LAKEISHA, OHS, HFpEF, anxiety. Persistent intermittent tachypnea noted during stay without other associated features - has BIPAP available if needed and tolerated Status: Resolved (6) Acute diastolic CHF (congestive heart failure): Problem details: - HFpEF with formal TTE results below (03/02/24), no obvious valvular disease or wall motion abnormality - continue diuresis, titrate GDMT as tolerated Limited Echocardiogram performed 1. Technically limited exam. 2. Normal LV size, not well visualized wall thickness (~upper limit of normal-mildly increased), normal global systolic function with an estimated EF of 60 - 65%. 3. Right ventricle is not well visualized. It appears normal in limited views. 4. No significant valve disease detected. Status: Acute (7) Obesity hypoventilation syndrome: Problem details: - likely given habitus, elevated pCO2, elevated bicarbonate. Would benefit from sleep study, CPAP/BIPAP if willing Status: Chronic (8) Anxiety: Problem details: - long history of this, on Duloxetine 60mg Qday; previously on prn Lorazepam (not continuing regularly given high risk of complications) - 03/07/24: increased Duloxetine to 90mg/day, added low dose Buspirone BID Status: Chronic (9) Morbid obesity: Problem details: - chronic with BMI 58, complications include OHS - weight on discharge in 06/05 was 111kg, current weight 141kg - unclear what her weight was upon leaving [facility] - Nutrition consult, 1500 calorie diet recommended. Patient not able, unwilling to comply. Family bringing in food. Nutrition will continue to follow and encourage healthy food choices but ultimately, patient has the right to continue to make poor choices and we will not police family bringing in food so regular diet has been ordered Status: Chronic (10) Discharge planning issues: Problem details: - appreciate assistance from therapy teams and SW; emergency guardianship through [facility] obtained 03/03/24 Status: Acute (11) Chronic pain: Problem details: - previously on opioids, then buprenorphine - high risk for respiratory complications, has order for low dose Oxycodone during the day prior to cares prn - current non-opiate pain management: scheduled APAP, Celebrex, Duloxetine, Lidocaine patch, topical Aspercreme. - continue PT and OT for core strengthening Status: Chronic (12) Chronic acquired lymphedema: Problem details: - chronic, bilateral; compression and elevation if she will tolerate - seen by lymphedema therapist 03/06 - Patient is refusing leg wraps Status: Chronic (13) Constipation: Problem details: Stool softener bid, miralax daily until stools formed, rectal suppository today and prn Encourage up to commode (nursing staff reports patient is refusing) Status: Acute Plan Awaiting placement, 55 facilities have been called thus far as of 03/13/2024 Time Spent With Patient Total time spent: Total time spent caring for the patient today was 45 minutes. This includes time spent for the visit reviewing the chart, time spent during the visit, time spent after the visit and documentation and planning in coordination of care. Subjective Date Seen: 03/13/24 Interval history: Patient reports not feeling well this morning. She has not had a bowel movement since admission. None documented according to records. Nursing staff has encouraged her to get up to the commode today but she has refused. Mild nausea, no vomiting. Chronic pain complaints otherwise. Exam Narrative: Exam Narrative: PHYSICAL EXAM General: Lying on left side, usual position, cooperative this morning, NAD Cardiovascular: RRR Pulmonary: CTA bilaterally without rhonchi, rales, expiratory wheezes. Neurological: Alert, answering questions appropriately Extremities: Chronic edema Skin: Warm, dry. Const: Vital Signs, click to edit/add: Vital Signs - 24 hr 03/12/24 15:00 03/12/24 15:00 03/12/24 22:13 Temperature 97.2 F L Pulse Rate [Pulse Oximeter] 70 Respiratory Rate 22 18 Blood Pressure [Ri ght forearm] 122/58 L Pulse Oximetry 96 96 94 Oxygen Delivery Me thod Room Air Room Air Room Air 03/12/24 22:14 03/12/24 22:34 03/13/24 06:00 Temperature 96.8 F L Pulse Rate [Pulse Oximeter] 73 Respiratory Rate 18 18 18 Blood Pressure [Ri ght forearm] 113/54 L Pulse Oximetry 94 Oxygen Delivery Me thod Room Air 03/13/24 08:54 03/13/24 09:30 Temperature 98.2 F Pulse Rate [Pulse Oximeter] 71 Respiratory Rate 20 Blood Pressure [Ri ght forearm] 123/57 L Pulse Oximetry 94 Oxygen Delivery Va thod Room Air Room Air
[2024-03-13 10:46] VITALS: BMI 50.4
[2024-03-13] MEDS: bisacodyL 10 MG SUPP.RECT PR (13:44)
--- NOTE | 2024-03-13 14:08 | PC.NURSE ---
Addendum entered by Yumiko Rinaldi RN 03/13/24 14:33: enlarged photo Original Note: Wound documented with verbal patient permission-
[2024-03-13 15:00] VITALS: O2SAT 94
--- NOTE | 2024-03-13 15:24 | PC.SOCIAL ---
Discharge planning: crop farm workers called back facilities that referrals had been sent to and sent a new referral to [facility] in [place]. See list below. crop farm workers to continue to look for appropriate facility placement. ? 1) [facility]: Faxed a new referral as previous one was not received, phone number: [phone]. Fax: @[phone] 2) [facility]: left voicemail, requesting a call back, phone number: [phone] 3) [facility]: called with no voicemail available, phone number [phone] 4) [facility]: secure e-mailed a new referral as previous one was cut off, e-mail: [email or web address] 5) [facility]: received referral, but awaiting call back with an update on referral status, phone number: [phone] 6) [facility]: did not receive previous referral, no beds available 03/13 7) [facility]: left voicemail requesting a call back 8) [facility]: faxed over referral, awaiting picture of wound, phone number: [phone], fax:[phone] 9) [facility]: declined pt due to needs
[2024-03-13] MEDS: OXYCODONE 5 MG TABLET PO (18:00)
--- NOTE | 2024-03-13 19:16 | PC.NURSE ---
Pt pleasant, alert and oriented, and vitally stable. Pt has refused repositioning despite multiple attempts and pt education. Pt had pain rating 8/10, prn oxycodone given, pain improved. Wound change completed, two Mepilex on both sacrum and left buttocks. Gutierrez patent and draining. Pt given suppository with result, although pt refused to get up to commode.
[2024-03-13] MEDS: ENOXAPARIN 40 MG/0.4 ML INJ SUBCUT (21:35)
[2024-03-13] MEDS: ACETAMINOPHEN 500 MG TABLET 1000 MG PO (21:39)
[2024-03-13 23:00] VITALS: BP 106/65; PULSE 74; RESP 20; TEMP 36.6; O2SAT 88
[2024-03-13 23:30] VITALS: RESP 18; O2SAT 88
[2024-03-14] VITALS (7 sets, daily range): BP systolic 133; BP diastolic 76; PULSE 70; RESP 18–26; TEMP 36.4; O2SAT 94
--- NOTE | 2024-03-14 06:09 | PC.NURSE ---
0700: The patient is cooperative this shift, although she refused repositioning, skin care in folds and most of her evening pills. I educated her on the importance of repositioning, and the patient stated I just don't want to move. Gutierrez is patent and draining, the patient slept throughout the night. Call light within reach. Nancy LOPEZ BSN
[2024-03-14] MEDS: OXYCODONE 5 MG TABLET PO ×2 (08:13→12:31)
[2024-03-14] MEDS: ACETAMINOPHEN 500 MG TABLET 1000 MG PO ×3 (08:13→22:25)
[2024-03-14] MEDS: TORSEMIDE 20 MG TABLET PO (09:41)
[2024-03-14] MEDS: OMEPRAZOLE 20 MG CAPSULE DR PO (09:41)
[2024-03-14] MEDS: DOCUSATE SODIUM 100 MG CAPSULE PO ×2 (09:42→20:40)
[2024-03-14] MEDS: DULOXETINE 30 MG CAPSULE DR 90 MG PO (09:42)
[2024-03-14] MEDS: BUSPIRONE 10 MG TABLET PO ×2 (09:42→20:41)
[2024-03-14] MEDS: CELECOXIB 200 MG CAPSULE PO (09:42)
[2024-03-14] MEDS: LACTOBACILLUS ACIDOPHILUS 1 TABLET 1 TAB PO (09:43)
[2024-03-14] MEDS: FERROUS SULFATE 325 MG TABLET PO (09:43)
[2024-03-14] MEDS: FLUTICASONE PROPIONATE NASAL 1 SPRAY NOSTRIL-B (09:43)
[2024-03-14] MEDS: METOPROLOL SUCCINATE (XL) 50 MG TAB PO (09:43)
[2024-03-14] MEDS: NYSTATIN POWDER 1 APPLIC TOPICAL ×2 (09:44→20:42)
[2024-03-14] MEDS: SPIRONOLACTONE 25 MG TABLET PO (09:44)
[2024-03-14] MEDS: SODIUM CHLORIDE 0.9 % (FLUSH) 10 ML SYRINGE 5 ML IVF ×2 (10:00→20:44)
[2024-03-14] MEDS: LIDOCAINE 5% PATCH 1 PATCH TRANSDERMA (10:30)
[2024-03-14] MEDS: LIDOCAINE 5% PATCH 2 PATCH TRANSDERMA (10:30)
--- NOTE | 2024-03-14 11:36 | PM.IMPN1 ---
Progress Note: A&P Assessment and plan (1) Adult failure to thrive: Problem details: - Failing at home without extra support; requires SNF level care for wound/skin care, therapies - amenable to SNF stay when bed available. Guardian has been appointed Status: Acute (2) Ulcer of sacral region, stage 4: Problem details: - hospitalized for this in 06/05, improved 09/2023, patient and partner reported prior resolution - as of 02/2024, stage 4 again - historically has refused surgery and debridement; General Surgery has evaluated; no current surgical needs identified, would require transfer if that were to change - medical management, offloading pressure is primary treatment at this time, in addition to wound and skin care - no evidence of acute infectious process Status: Chronic (3) Acute diastolic CHF (congestive heart failure): Problem details: - HFpEF with formal TTE results below (03/02/24), no obvious valvular disease or wall motion abnormality - continue diuresis, titrate GDMT as tolerated Limited Echocardiogram performed 1. Technically limited exam. 2. Normal LV size, not well visualized wall thickness (~upper limit of normal-mildly increased), normal global systolic function with an estimated EF of 60 - 65%. 3. Right ventricle is not well visualized. It appears normal in limited views. 4. No significant valve disease detected. Status: Acute (4) Obesity hypoventilation syndrome: Problem details: - likely given habitus, elevated pCO2, elevated bicarbonate. Would benefit from sleep study, CPAP/BIPAP if willing Status: Chronic (5) Anxiety: Problem details: - long history of this, on Duloxetine 60mg Qday; previously on prn Lorazepam (not continuing regularly given high risk of complications) - 03/07/24: increased Duloxetine to 90mg/day, added low dose Buspirone BID Status: Chronic (6) Morbid obesity: Problem details: - chronic with BMI 58, complications include OHS - weight on discharge in 06/05 was 111kg, current weight 141kg - unclear what her weight was upon leaving [facility] - Nutrition consult, 1500 calorie diet recommended. Patient not able, unwilling to comply. Family bringing in food. Nutrition will continue to follow and encourage healthy food choices but ultimately, patient has the right to continue to make poor choices and we will not police family bringing in food so regular diet has been ordered Status: Chronic (7) Chronic pain: Problem details: - previously on opioids, then buprenorphine - high risk for respiratory complications, has order for low dose Oxycodone during the day prior to cares prn - current non-opiate pain management: scheduled APAP, Celebrex, Duloxetine, Lidocaine patch, topical Aspercreme. - continue PT and OT for core strengthening Status: Chronic (8) Chronic acquired lymphedema: Problem details: - chronic, bilateral; compression and elevation if she will tolerate - seen by lymphedema therapist 03/06 - Patient is refusing leg wraps Status: Chronic (9) Discharge planning issues: Problem details: - appreciate assistance from therapy teams and SW; emergency guardianship through [facility] obtained 03/03/24 Status: Acute (10) Constipation: Problem details: Stool softener bid, miralax daily until regular stools, rectal suppository x1 - had 3 large BM Encourage up to commode (nursing staff reports patient is refusing) Status: Acute (11) Urinary tract infection: Problem details: RESOLVED - E Coli; in addition to + wound culture for Proteus, MRSA, and GBS - did not cover wound culture given clinical stability and likelihood of multi bacterial contaminant - s/p treatment with 3 day course of Ertapenem (03/06-03/08) Status: Resolved (12) Metabolic alkalosis: Problem details: RESOLVED - noted on 03/04, likely 2/2 diuresis - 03/04: decreased Torsemide from 40mg BID --> 20mg BID, continue Spironolactone - 03/05: VBG has normalized, continue current medications and monitor - 03/07: pH increased, patient continues to have high UOP. Decreased Torsemide from 20mg BID --> 20mg once/day, d/c Potassium as well, on Spironolactone Status: Resolved (13) Acute respiratory failure: Problem details: RESOLVED - noted after admission (03/02) overnight, primarily hypoventilation with both hypoxia and hypercarbia associated with AMS - likely combination of LAKEISHA, OHS, HFpEF, anxiety. Persistent intermittent tachypnea noted during stay without other associated features - has BIPAP available if needed and tolerated Status: Resolved Plan Awaiting placement Time Spent With Patient Total time spent: Total time spent caring for the patient today was 45 minutes. This includes time spent for the visit reviewing the chart, time spent during the visit, time spent after the visit and documentation and planning in coordination of care. Subjective Date Seen: 03/14/24 Interval history: Lying on her left side as usual, watching TV this morning. Had 3 large bowel movements yesterday. Not complaining of her usual chronic pain this morning. Awaiting placement. Exam Narrative: Exam Narrative: PHYSICAL EXAM General: Lying on left side, usual position, cooperative, NAD Cardiovascular: RRR Pulmonary: CTA bilaterally without rhonchi, rales, expiratory wheezes. Neurological: Alert, answering questions appropriately Extremities: Chronic edema Skin: Warm, dry. Const: Vital Signs, click to edit/add: Vital Signs - 24 hr 03/13/24 15:00 03/13/24 23:00 03/13/24 23:30 Temperature 97.8 F Pulse Rate [Pulse Oximeter] 74 Respiratory Rate 20 18 Blood Pressure [le ft FA] 106/65 Pulse Oximetry 94 88 88 Oxygen Delivery Me thod Room Air Room Air Room Air 03/13/24 23:30 03/14/24 05:30 03/14/24 07:00 Temperature Pulse Rate [Pulse Oximeter] Respiratory Rate 18 20 26 H Blood Pressure [le ft FA] Pulse Oximetry 94 Oxygen Delivery Co thod Room Air 03/14/24 08:19 03/14/24 10:00 Temperature 97.5 F L Pulse Rate [Pulse Oximeter] 70 70 Respiratory Rate 26 H 26 H Blood Pressure [le ft FA] 133/76 Pulse Oximetry 94 Oxygen Delivery Co thod Room Air
--- NOTE | 2024-03-14 18:49 | PC.NURSE ---
Nursing Care Hours: 3150-1402 Pt this shift calm and cooperative this shift with intermittent bouts of anxiety and tears, related to having to move or transfer d/t pain. Lidocaine patches and pain meds given per order. Pt allowed justowriter operator to help clean and dry pannus and under abdomen area as well as under bilat breasts. Pt agreed to get up at 0930 but then at time, refused and said she would at 1000. pt ceiling transferred to w/c at 1000 with 2 assist, pt tolerated transfer well and stated you guys did great, I didn't even feel it. Once in w/c, pt c/o L hip pain. Was tolerable after some adjustments. Stayed up in w/c until 1400. Dressing change to sacrum and left glute done in bed. Brief changed. Pt refused KRISTAL wraps to bilat legs. Refused Mirlax but did take docusate. No BM this shift. U/o clear light eleanor. VSS. Dilated spider web bruising noted on upper chest. No discomfort to pt.
[2024-03-14] MEDS: HYDROCORTISONE 1 % CREAM 1 APPLIC TOPICAL (20:41)
[2024-03-14] MEDS: ENOXAPARIN 40 MG/0.4 ML INJ SUBCUT (20:41)
[2024-03-15] VITALS (7 sets, daily range): BP systolic 129–139; BP diastolic 59–74; PULSE 67–78; RESP 18–20; TEMP 36.2–37.1; O2SAT 92–97
[2024-03-15] MEDS: OMEPRAZOLE 20 MG CAPSULE DR PO (06:14)
[2024-03-15] MEDS: ONDANSETRON ODT 4 MG TAB PO (07:24)
[2024-03-15] MEDS: TORSEMIDE 20 MG TABLET PO (07:24)
[2024-03-15] MEDS: ACETAMINOPHEN 500 MG TABLET 1000 MG PO ×2 (07:24→18:30)
[2024-03-15] MEDS: METOPROLOL SUCCINATE (XL) 50 MG TAB PO (08:34)
[2024-03-15] MEDS: BUSPIRONE 10 MG TABLET PO ×2 (08:34→21:08)
[2024-03-15] MEDS: CELECOXIB 200 MG CAPSULE PO (08:34)
[2024-03-15] MEDS: DULOXETINE 30 MG CAPSULE DR 90 MG PO (08:34)
[2024-03-15] MEDS: SPIRONOLACTONE 25 MG TABLET PO (08:34)
[2024-03-15] MEDS: FLUTICASONE PROPIONATE NASAL 1 SPRAY NOSTRIL-B (08:40)
[2024-03-15] MEDS: HYDROCORTISONE 1 % CREAM 1 APPLIC TOPICAL (08:40)
[2024-03-15] MEDS: NYSTATIN POWDER 1 APPLIC TOPICAL ×2 (08:40→21:09)
[2024-03-15] MEDS: SODIUM CHLORIDE 0.9 % (FLUSH) 10 ML SYRINGE 5 ML IVF ×2 (08:40→21:09)
[2024-03-15] MEDS: OXYCODONE 5 MG TABLET PO (09:39)
--- NOTE | 2024-03-15 11:03 | PM.IMPN1 ---
Progress Note: A&P Assessment and plan (1) Adult failure to thrive: Problem details: - Failing at home without extra support; requires SNF level care for wound/skin care, therapies - amenable to SNF stay when bed available. Guardian has been appointed Status: Acute (2) Ulcer of sacral region, stage 4: Problem details: - hospitalized for this in 06/05, improved 09/2023, patient and partner reported prior resolution - as of 02/2024, stage 4 again - historically has refused surgery and debridement; General Surgery has evaluated; no current surgical needs identified, would require transfer if that were to change - medical management, offloading pressure is primary treatment at this time, in addition to wound and skin care - no evidence of acute infectious process Status: Chronic (3) Acute diastolic CHF (congestive heart failure): Problem details: - HFpEF with formal TTE results below (03/02/24), no obvious valvular disease or wall motion abnormality - continue diuresis - torsemide 20mg daily Limited Echocardiogram performed 1. Technically limited exam. 2. Normal LV size, not well visualized wall thickness (~upper limit of normal-mildly increased), normal global systolic function with an estimated EF of 60 - 65%. 3. Right ventricle is not well visualized. It appears normal in limited views. 4. No significant valve disease detected. Status: Acute (4) Obesity hypoventilation syndrome: Problem details: - likely given habitus, elevated pCO2, elevated bicarbonate. Would benefit from outpatient sleep study, CPAP/BIPAP if willing Status: Chronic (5) Anxiety: Problem details: - long history of this, on Duloxetine 60mg Qday; previously on prn Lorazepam (not continuing regularly given high risk of complications) - 03/07/24: increased Duloxetine to 90mg/day, added low dose Buspirone BID Status: Chronic (6) Morbid obesity: Problem details: - chronic with BMI 58, complications include OHS - weight on discharge in 06/05 was 111kg, current weight 141kg - now at 131kg - unclear what her weight was upon leaving [facility] - Nutrition consult, 1500 calorie diet recommended. Patient not able, unwilling to comply. Family bringing in food. Nutrition will continue to follow and encourage healthy food choices but ultimately, patient has the right to continue to make poor choices and we will not police family bringing in food so regular diet has been ordered Status: Chronic (7) Chronic pain: Problem details: - previously on opioids, then buprenorphine - high risk for respiratory complications, has order for low dose Oxycodone during the day prior to cares prn - current non-opiate pain management: scheduled APAP, Celebrex, Duloxetine, Lidocaine patch, topical Aspercreme. - continue PT and OT for core strengthening Status: Chronic (8) Chronic acquired lymphedema: Problem details: - chronic, bilateral; compression and elevation if she will tolerate - seen by lymphedema therapist 03/06 - Patient is refusing leg wraps Status: Chronic (9) Discharge planning issues: Problem details: - appreciate assistance from therapy teams and SW; emergency guardianship through [facility] obtained 03/03/24 Status: Acute (10) Constipation: Problem details: RESOLVED - continue stool softener bid, miralax prn Stool softener bid, miralax daily until regular stools, rectal suppository x1 - had 3 large BM Encourage up to commode (nursing staff reports patient is refusing) Status: Resolved (11) Urinary tract infection: Problem details: RESOLVED - E Coli; in addition to + wound culture for Proteus, MRSA, and GBS - did not cover wound culture given clinical stability and likelihood of multi bacterial contaminant - s/p treatment with 3 day course of Ertapenem (03/06-03/08) Status: Resolved (12) Metabolic alkalosis: Problem details: RESOLVED - noted on 03/04, likely 2/2 diuresis - 03/04: decreased Torsemide from 40mg BID --> 20mg BID, continue Spironolactone - 03/05: VBG has normalized, continue current medications and monitor - 03/07: pH increased, patient continues to have high UOP. Decreased Torsemide from 20mg BID --> 20mg once/day, d/c Potassium as well, on Spironolactone Status: Resolved (13) Acute respiratory failure: Problem details: RESOLVED - noted after admission (03/02) overnight, primarily hypoventilation with both hypoxia and hypercarbia associated with AMS - likely combination of LAKEISHA, OHS, HFpEF, anxiety. Persistent intermittent tachypnea noted during stay without other associated features - has BIPAP available if needed and tolerated Status: Resolved Plan Awaiting placement Time Spent With Patient Total time spent: Total time spent caring for the patient today was 45 minutes. This includes time spent for the visit reviewing the chart, time spent during the visit, time spent after the visit and documentation and planning in coordination of care. Subjective Date Seen: 03/15/24 Interval history: Patient is seen, lying on her left side, usual position. Complains of mild nausea. Complains of her chronic pain. Had a BM again yesterday. No events reported overnight. Awaiting placement. Exam Narrative: Exam Narrative: PHYSICAL EXAM General: Lying on left side, usual position, cooperative, NAD Cardiovascular: RRR Pulmonary: CTA bilaterally without rhonchi, rales, expiratory wheezes. Neurological: Alert, answering questions appropriately Extremities: Chronic edema Skin: Warm, dry. Const: Vital Signs, click to edit/add: Vital Signs - 24 hr 03/14/24 15:00 03/14/24 23:00 03/14/24 23:30 Temperature Pulse Rate [Pulse Oximeter] Respiratory Rate 18 18 Blood Pressure [le ft FA] Pulse Oximetry 94 94 Oxygen Delivery Me thod Room Air Room Air 03/15/24 05:14 03/15/24 07:19 03/15/24 07:30 Temperature 97.1 F L Pulse Rate [Pulse Oximeter] 70 Respiratory Rate 18 20 20 Blood Pressure [le ft FA] 135/59 L Pulse Oximetry 97 97 Oxygen Delivery Me thod Room Air Room Air
[2024-03-15] MEDS: LIDOCAINE 5% PATCH 2 PATCH TRANSDERMA (11:10)
[2024-03-15] MEDS: LIDOCAINE 5% PATCH 1 PATCH TRANSDERMA (11:13)
--- NOTE | 2024-03-15 13:41 | PC.NURSE ---
Shift Summary: Patient low mood today, refused PT/OT. Was agreeable to skin care done under breasts and to back, while refusing to have legs/groin cleansed. Verbalized increased pain today in back, given PRN and scheduled medication and repositioning with relief. Refused breakfast, was agreeable to lunch however refused to get into recliner for meal. Patient able to turn self onto side with some assistance moving legs, was able to turn self to side for staff to perform wound care.
--- NOTE | 2024-03-15 16:03 | PC.SOCIAL ---
Discharge planning: eligibility worker reached out to the following facilities regarding placement. eligibility worker to continue to look for appropriate facility placement. ? 1) [facility] declined pt due to behavior 2) [facility]: eligibility worker spoke with admissions and faxed referral, fax: [phone], phone:? 3) [facility]: eligibility worker spoke with admissions and faxed referral, fax: [phone], phone:? 4) [facility]: eligibility worker spoke with [place] liaisonRobi.? All 44 [place] facilities have refused pt due to need for 3-person assist. Phone number: ?[phone], fax:? ?[phone] 5) [facility]: Referral is in clinical review process, expecting return call from nurse, phone number: [phone], fax:[phone] 6) [facility] declined pt due to needs? 7) [facility]: eligibility worker left voicemail requesting info on bed availability, phone: [phone] 8) [facility]: eligibility worker spoke with admissions and faxed referral, fax: [phone], phone: [phone] 9) [facility]: Social worke spoke with admissions and is awaiting a call back, phone: [phone] 10) [facility]: eligibility worker left voicemail requesting info on bed availability, phone: [phone] 11) [facility]: eligibility worker left voicemail requesting info on bed availability, phone: [phone] 12) [facility]: eligibility worker called and they have no short-term rehab unit.? 13) [facility]: eligibility worker left voicemail requesting info on bed availability, phone: [phone] 14) [facility]: eligibility worker spoke with admissions and faxed referral, fax: [phone], phone: [phone] ([place]) 15) [facility]: eligibility worker left voicemail requesting info on bed availability, phone: [phone] 16) [facility]: eligibility worker left voicemail requesting info on bed availability, phone: [phone] 17) [facility]: eligibility worker left voicemail requesting info on bed availability, phone:
--- NOTE | 2024-03-15 18:44 | PC.NURSE ---
End of Shift([id number]) Patient flat, pleasant, and cooperative. Patient vitally stable, lungs clear, BS WNL, IV SL and intact. Patient rates back pain 9/10, tylenol given once. Coccyx dressing assessed, C/D/I. Patient declined repositioning and changing intradry. Patient tolerating regular diet, ordered dinner, ate it all, then partner also brought food.
[2024-03-15] MEDS: DOCUSATE SODIUM 100 MG CAPSULE PO (21:08)
[2024-03-15] MEDS: ENOXAPARIN 40 MG/0.4 ML INJ SUBCUT (21:08)
--- NOTE | 2024-03-16 05:14 | PC.NURSE ---
Addendum entered by Luiz Carlson RN 03/16/24 06:47: 0630: PT REFUSED TO BE TRANSFERRED TO THE RECLINER. INSISTED SHE SHOULD NOT BE TRANSFERRED TO RECLINER BUT SHE WILL ASK TO BE TRANSFERRED WHEN SHE IS READY. pT REFUSED TO BE TURNED AND REPOSITION AT THIS TIME TOO. Original Note: Shift note: Pt continue to complain of back pain but refused to turning and reposition. Aspercreme applied to the back and hip per pt's request. Pt has bad odor coming from the groin area but refused to be cleaned and application of nystatin powder to the groin and hydrocortisone cream. However, pt accepted nystatin powder application to under the breast. Alert and oriented, vitally stable.
[2024-03-16 06:00] VITALS: RESP 20
[2024-03-16 08:24] VITALS: BP 143/76; PULSE 81; RESP 18; TEMP 36.4; O2SAT 94
[2024-03-16] MEDS: DULOXETINE 30 MG CAPSULE DR 90 MG PO (08:27)
[2024-03-16] MEDS: CELECOXIB 200 MG CAPSULE PO (08:27)
[2024-03-16] MEDS: OMEPRAZOLE 20 MG CAPSULE DR PO (08:28)
[2024-03-16] MEDS: TORSEMIDE 20 MG TABLET PO (08:28)
[2024-03-16] MEDS: ACETAMINOPHEN 500 MG TABLET 1000 MG PO ×2 (08:28→16:21)
[2024-03-16 09:00] VITALS: RESP 18; O2SAT 94
[2024-03-16] MEDS: BUSPIRONE 10 MG TABLET PO ×2 (09:33→20:26)
[2024-03-16] MEDS: METOPROLOL SUCCINATE (XL) 50 MG TAB PO (09:33)
[2024-03-16] MEDS: SPIRONOLACTONE 25 MG TABLET PO (09:33)
[2024-03-16] MEDS: FERROUS SULFATE 325 MG TABLET PO (09:33)
[2024-03-16] MEDS: LACTOBACILLUS ACIDOPHILUS 1 TABLET 1 TAB PO (09:33)
[2024-03-16] MEDS: FLUTICASONE PROPIONATE NASAL 1 SPRAY NOSTRIL-B (09:34)
[2024-03-16] MEDS: OXYCODONE 5 MG TABLET PO ×2 (10:22→16:20)
--- NOTE | 2024-03-16 11:10 | PM.IMPN1 ---
Progress Note: A&P Assessment and plan (1) Adult failure to thrive: Problem details: - Failing at home without extra support; requires SNF level care for wound/skin care, therapies - amenable to SNF stay when bed available. Guardian has been appointed Status: Acute (2) Ulcer of sacral region, stage 4: Problem details: - hospitalized for this in 06/05, improved 09/2023, patient and partner reported prior resolution - as of 02/2024, stage 4 again - historically has refused surgery and debridement; General Surgery has evaluated; no current surgical needs identified, would require transfer if that were to change - medical management, offloading pressure is primary treatment at this time, in addition to wound and skin care - no evidence of acute infectious process Status: Chronic (3) Acute diastolic CHF (congestive heart failure): Problem details: - HFpEF with formal TTE results below (03/02/24), no obvious valvular disease or wall motion abnormality - continue diuresis - torsemide 20mg daily Limited Echocardiogram performed 1. Technically limited exam. 2. Normal LV size, not well visualized wall thickness (~upper limit of normal-mildly increased), normal global systolic function with an estimated EF of 60 - 65%. 3. Right ventricle is not well visualized. It appears normal in limited views. 4. No significant valve disease detected. Status: Acute (4) Obesity hypoventilation syndrome: Problem details: - likely given habitus, elevated pCO2, elevated bicarbonate. Would benefit from outpatient sleep study, CPAP/BIPAP if willing Status: Chronic (5) Anxiety: Problem details: - long history of this, on Duloxetine 60mg Qday; previously on prn Lorazepam (not continuing regularly given high risk of complications) - 03/07/24: increased Duloxetine to 90mg/day, added low dose Buspirone BID Status: Chronic (6) Morbid obesity: Problem details: - chronic with BMI 58, complications include OHS - weight on discharge in 06/05 was 111kg, current weight 141kg - now at 131kg - unclear what her weight was upon leaving [facility] - Nutrition consult, 1500 calorie diet recommended. Patient not able, unwilling to comply. Family bringing in food. Nutrition will continue to follow and encourage healthy food choices but ultimately, patient has the right to continue to make poor choices and we will not police family bringing in food so regular diet has been ordered Status: Chronic (7) Chronic pain: Problem details: - previously on opioids, then buprenorphine - high risk for respiratory complications, has order for low dose Oxycodone during the day prior to cares prn - current non-opiate pain management: scheduled APAP, Celebrex, Duloxetine, Lidocaine patch, topical Aspercreme - continue PT and OT for core strengthening Status: Chronic (8) Chronic acquired lymphedema: Problem details: - chronic, bilateral; compression and elevation if she will tolerate - seen by lymphedema therapist 03/06 - Patient is refusing leg wraps Status: Chronic (9) Discharge planning issues: Problem details: - appreciate assistance from therapy teams and SW; emergency guardianship through [facility] obtained 03/03/24 Status: Acute (10) Constipation: Problem details: RESOLVED - continue stool softener bid, miralax prn Stool softener bid, miralax daily until regular stools, rectal suppository x1 - had 3 large BM Encourage up to commode (nursing staff reports patient is refusing) Status: Resolved (11) Urinary tract infection: Problem details: RESOLVED - E Coli; in addition to + wound culture for Proteus, MRSA, and GBS - did not cover wound culture given clinical stability and likelihood of multi bacterial contaminant - s/p treatment with 3 day course of Ertapenem (03/06-03/08) Status: Resolved (12) Metabolic alkalosis: Problem details: RESOLVED - noted on 03/04, likely 2/2 diuresis - 03/04: decreased Torsemide from 40mg BID --> 20mg BID, continue Spironolactone - 03/05: VBG has normalized, continue current medications and monitor - 03/07: pH increased, patient continues to have high UOP. Decreased Torsemide from 20mg BID --> 20mg once/day, d/c Potassium as well, on Spironolactone Status: Resolved (13) Acute respiratory failure: Problem details: RESOLVED - noted after admission (03/02) overnight, primarily hypoventilation with both hypoxia and hypercarbia associated with AMS - likely combination of LAKEISHA, OHS, HFpEF, anxiety. Persistent intermittent tachypnea noted during stay without other associated features - has BIPAP available if needed and tolerated Status: Resolved Plan Awaiting placement Subjective Date Seen: 03/16/24 Interval history: Is seen lying in bed, left side, as usual. No new complaints this morning. Continues with chronic back pain. Remains sedentary. From a social aspect, asked patient about her past. Tells me she finished 11th grade in a [employer]. Got in January of her senior year (because she was in love) and in March, too sick to finish her senior year. 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 Eventually her whom she tells me she remains good friends with now. Met her current boyfriend, Alex, 20 years ago at a [employer]. Never . Alex currently lives with her ex- when he is not staying with her. Exam Narrative: Exam Narrative: PHYSICAL EXAM General: Lying on left side, usual position, cooperative, NAD Cardiovascular: RRR Pulmonary: CTA bilaterally without rhonchi, rales, expiratory wheezes. Neurological: Alert, answering questions appropriately Extremities: Chronic edema Skin: Warm, dry. Const: Vital Signs, click to edit/add: Vital Signs - 24 hr 03/15/24 16:07 03/15/24 16:07 03/15/24 19:00 Temperature 98.2 F 98.8 F Pulse Rate [Pulse Oximeter] 67 78 Respiratory Rate 20 20 Blood Pressure [Ri ght forearm] 129/60 Blood Pressure [le ft FA] 139/74 Pulse Oximetry 92 92 92 Oxygen Delivery Me thod Room Air Room Air Room Air 03/15/24 22:21 03/15/24 23:30 03/16/24 06:00 Temperature Pulse Rate [Pulse Oximeter] Respiratory Rate 20 20 20 Blood Pressure [Ri ght forearm] Blood Pressure [le ft FA] Pulse Oximetry 92 Oxygen Delivery Me thod Room Air 03/16/24 08:24 03/16/24 09:00 Temperature 97.5 F L Pulse Rate [Pulse Oximeter] 81 Respiratory Rate 18 18 Blood Pressure [Ri ght forearm] 143/76 H Blood Pressure [le ft FA] Pulse Oximetry 94 94 Oxygen Delivery Me thod Room Air Room Air
[2024-03-16] MEDS: NYSTATIN POWDER 1 APPLIC TOPICAL (11:30)
--- NOTE | 2024-03-16 12:21 | PC.NURSE ---
This AM upon my inial assessment of the patient she refused to get repositioned in bed and or up to the chair for breakfast. I educated her on the importance of offloading weight due to not being up since yesterday. She stated that her back hurt too much to do so. I also mentioned how repositioning may help relieve some pressure off her back, she was not receptive to this. Later this AM I gave her PRN medication for her back pain prior to transferring her. When I approached her 30 min later regarding getting up she began to cry and stated she couldn't because of the pain. With help from OT we got Gracia to say yes to get up into the chair. She stated that she wanted a new brief... we proceeded to give her time to move, she was noted to become more irritated and began to yell at us. Ehnny care was provided to her bilateral thighs/ buttock... WOC was completed on her sacral region. The patient continued to yell during this process. We explained that she needed to roll the other direction for the soiled pads to be removed... she was very resistive to this. Nystatin was also applied to her cleansed pannus and groin area. She refused under the breast cares at this time. Up in the wheelchair now. The patient appears to be more calm. Nancy LOPEZ BSN
[2024-03-16 15:00] VITALS: BP 121/62; PULSE 82; RESP 20; RESP 22; TEMP 36.4; O2SAT 96
--- NOTE | 2024-03-16 16:39 | PC.SOCIAL ---
Addendum entered and electronically signed by CHARLETTE Campo Student Colon Therapist 03/17/24 10:54: Nurse line for [facility]: [phone] Original Note: Discharge Planning: Below is an updated list of all facilities that have been contacted regarding placement. [facility] has accepted patient for placement. Still pending is [id number] call and guardian approval. Nurses at the facility can be reached at [phone]. Guardian has been sent an email and left a voicemail, requesting call back. Son of patient was contacted by [facility] for possible tour of facility. Room with private bed and bath is available tomorrow. skidway worker will follow up regarding placement. 1. [facility]-[phone], declined pt 2. [facility]- declined pt due to needs 3. [facility]- [phone]- declined pt 4. [facility]-[phone] Message left. 5. [facility]- [phone] Message left. 6. [facility]- [phone]. Has no openings (03/02) 7. [facility] and [place] [facility]- [phone]. Message left. 8. [facility]- [phone]. Message left. 9. [facility]- [phone]. No beds (03/02) 10. [facility] and [facility]-[phone] Message left. 11. [facility]-declined based on need. 12. [facility] [place] [phone], Faxed#[phone]. 13. [facility] [phone] [facility], Faxed # [phone] [facility] - [phone] left message requesting call back. 15. [facility]- [phone] cannot meet needs of patient due to weight. 16. [facility] - no bed available (03/06). 17. [facility] - facility permanently closed. 18. [facility] - facility permanently closed. 19. [facility] - [phone] left message requesting call back. 20. [facility] - [phone] - only bariatric bed is not available (03/06), so can not meet pt needs. 21. [facility] - [phone] - left message requesting call back. 22. [facility] - [phone] - left message requesting call back. 23.? [facility], declined pt (can only accept 1 person assist patients) 24. [facility]- declined due to pt not meeting ?acute? criteria. 25. [facility]- [phone], faxed# [phone] 26. [facility]- [phone]- Message left on availability 27. [facility]- [phone] Message left on availability 28. [facility])- [phone] Declined pt. due to current acuity 29. [facility]-[phone] Message left on availability 30. [facility]- [phone] no beds (03/09) 31. [facility]- [phone] ? no beds (03/09) 32. [facility]- [phone], fax# [phone] (Has openings but pt.'s guardian declined this facility.) 33. [facility], [facility] [place], and [facility]- Message left with admissions [phone] for all those facilities. 34. [facility]-[phone] Message left on availability 35. [facility]- [phone]. Message left on availability 36. [facility]- [phone]. Message left on availability 37. [facility]- [phone]. Has no openings (03/09) 38. [facility] [phone] Message left on availability 39. [facility]- [phone] Message left on availability 40. [facility] [phone], faxed # [phone] 41. [facility]- [phone]- declined pt 42. [facility]- [phone], faxed # [phone]. 43. [facility]- [phone]. Message left on availability. 44. [facility]- [phone]. Message left on availability. 45. [facility] [phone] Message left on availability. 46. [facility] [phone] ? no beds (03/10) 47. [facility] [phone] Message left on availability. 48. [facility] [phone] no beds (03/10) 49. [facility] [phone] Message left on availability. 50. [facility] [phone] info faxed to [phone]. 51. [facility] [phone] Message left on availability. 52. [facility] [phone] Message left on availability. 53. [facility] [phone]? Message left on availability. 54. [facility], Message left on availability. [phone] 55. [facility], Message left on availability. [phone] 56. [facility], referral in clinical review process 57. [facility], referral in clinical review process 58. [facility], Message left on availability. [phone] 59. [facility], declined pt 60. [facility], expecting call back regarding bed availablity 61. [facility], left voicemail regarding bed availability 62. [facility], Message left on availability. [phone] 63. [facility], left voicemail regarding bed availability 64. [facility], referral in clinical review process 65. [facility], no beds available 03/16 66. [facility]: Referral is in clinical review process, phone number: [phone], fax: [phone] All [facility] facilities, declined due to behavior All 44 [place] facilities, declined due to 3-person assist
--- NOTE | 2024-03-16 17:16 | PC.NURSE ---
Relief Cook placed call to [facility] at 1555 for nurse to nurse, no answer or voicemail box at number [phone] received from social media editor. Updated social media editor that no voicemail box and no answer from number provided. Relief Cook attempted a second call at [phone] and left voicemail for Jeanie LOPEZ in admissions, no callback received as of time of this note.
[2024-03-16] MEDS: ENOXAPARIN 40 MG/0.4 ML INJ SUBCUT (20:26)
[2024-03-16] MEDS: DOCUSATE SODIUM 100 MG CAPSULE PO (20:26)
[2024-03-16] MEDS: SODIUM CHLORIDE 0.9 % (FLUSH) 10 ML SYRINGE 5 ML IVF (20:27)
--- NOTE | 2024-03-16 22:38 | PC.NURSE ---
End of shift [id number]: Alert and oriented x 4. Pain to sacrum reported, PRN oxycodone 2.5mg and PRN tylenol administered with effective results. Declined BLE wraps. Gutierrez catheter patent, draining clear, pale yellow urine. Dressing to sacrum dry and intact. Patient declined nystatin powder. RLE elevated on pillow to float heel per patient request. Allowed offloading q2h.
[2024-03-16 23:00] VITALS: RESP 18
[2024-03-16 23:30] VITALS: RESP 17
[2024-03-17] VITALS (7 sets, daily range): BP systolic 122; BP diastolic 58–68; PULSE 69–79; RESP 18–22; TEMP 36.4–36.6; O2SAT 91–93
--- NOTE | 2024-03-17 06:59 | PC.NURSE ---
Shift note ([id number]): Patient slept well. Refused VS and repositioning during the night. Asked to be left alone. Pt reports she is comfortable and offers no complaints of discomfort. Catheter patent and draining clear yellow urine.
[2024-03-17] MEDS: DULOXETINE 30 MG CAPSULE DR 90 MG PO (07:48)
[2024-03-17] MEDS: OXYCODONE 5 MG TABLET PO (07:48)
[2024-03-17] MEDS: TORSEMIDE 20 MG TABLET PO (07:48)
[2024-03-17] MEDS: CELECOXIB 200 MG CAPSULE PO (07:49)
[2024-03-17] MEDS: OMEPRAZOLE 20 MG CAPSULE DR PO (07:49)
[2024-03-17] MEDS: ACETAMINOPHEN 500 MG TABLET 1000 MG PO (07:53)
[2024-03-17] MEDS: SODIUM CHLORIDE 0.9 % (FLUSH) 10 ML SYRINGE 5 ML IVF (07:54)
[2024-03-17] MEDS: SPIRONOLACTONE 25 MG TABLET PO (09:41)
[2024-03-17] MEDS: LACTOBACILLUS ACIDOPHILUS 1 TABLET 1 TAB PO (09:41)
[2024-03-17] MEDS: BUSPIRONE 10 MG TABLET PO ×2 (09:42→20:37)
[2024-03-17] MEDS: FLUTICASONE PROPIONATE NASAL 1 SPRAY NOSTRIL-B (09:42)
[2024-03-17] MEDS: DOCUSATE SODIUM 100 MG CAPSULE PO ×2 (09:42→20:37)
[2024-03-17] MEDS: FERROUS SULFATE 325 MG TABLET PO (09:42)
[2024-03-17] MEDS: METOPROLOL SUCCINATE (XL) 50 MG TAB PO (09:42)
[2024-03-17] MEDS: NYSTATIN POWDER 1 APPLIC TOPICAL ×2 (09:43→20:44)
[2024-03-17] MEDS: LIDOCAINE 5% PATCH 2 PATCH TRANSDERMA (09:44)
[2024-03-17] MEDS: LIDOCAINE 5% PATCH 1 PATCH TRANSDERMA (09:44)
--- NOTE | 2024-03-17 12:01 | PM.IMPN1 ---
Progress Note: A&P Assessment and plan (1) Adult failure to thrive: Problem details: - Failing at home without extra support; requires SNF level care for wound/skin care, therapies - amenable to SNF stay when bed available. Guardian has been appointed Status: Acute (2) Ulcer of sacral region, stage 4: Problem details: - hospitalized for this in 06/05, improved 09/2023, patient and partner reported prior resolution - as of 02/2024, stage 4 again - historically has refused surgery and debridement; General Surgery has evaluated; no current surgical needs identified, would require transfer if that were to change - medical management, offloading pressure is primary treatment at this time, in addition to wound and skin care - no evidence of acute infectious process Status: Chronic (3) Acute diastolic CHF (congestive heart failure): Problem details: - HFpEF with formal TTE results below (03/02/24), no obvious valvular disease or wall motion abnormality - continue diuresis - torsemide 20mg daily Limited Echocardiogram performed 1. Technically limited exam. 2. Normal LV size, not well visualized wall thickness (~upper limit of normal-mildly increased), normal global systolic function with an estimated EF of 60 - 65%. 3. Right ventricle is not well visualized. It appears normal in limited views. 4. No significant valve disease detected. Status: Acute (4) Obesity hypoventilation syndrome: Problem details: - likely given habitus, elevated pCO2, elevated bicarbonate. Would benefit from outpatient sleep study, CPAP/BIPAP if willing Status: Chronic (5) Anxiety: Problem details: - long history of this, on Duloxetine 60mg Qday; previously on prn Lorazepam (not continuing regularly given high risk of complications) - 03/07/24: increased Duloxetine to 90mg/day, added low dose Buspirone BID Status: Chronic (6) Morbid obesity: Problem details: - chronic with BMI 58, complications include OHS - weight on discharge in 06/05 was 111kg, current weight 141kg - now at 131kg - unclear what her weight was upon leaving [facility] - Nutrition consult, 1500 calorie diet recommended. Patient not able, unwilling to comply. Family bringing in food. Nutrition will continue to follow and encourage healthy food choices but ultimately, patient has the right to continue to make poor choices and we will not police family bringing in food so regular diet has been ordered Status: Chronic (7) Chronic pain: Problem details: - previously on opioids, then buprenorphine - high risk for respiratory complications, has order for low dose Oxycodone during the day prior to cares prn - current non-opiate pain management: scheduled APAP, Celebrex, Duloxetine, Lidocaine patch, topical Aspercreme - continue PT and OT for core strengthening Status: Chronic (8) Chronic acquired lymphedema: Problem details: - chronic, bilateral; compression and elevation if she will tolerate - seen by lymphedema therapist 03/06 - Patient is refusing leg wraps Status: Chronic (9) Discharge planning issues: Problem details: - appreciate assistance from therapy teams and SW; emergency guardianship through [facility] obtained 03/03/24 - patient was thought to be ready for discharge on 03/17/2024 until [place] [facility] [place] [facility] accepted her announce that they needed to do additional assessments and cooperation with the [facility] given the patient had a recent court appointed guardian. Await this additional layer of assessment before possible discharge. Anticipate this assessment may be done either early or middle part of next week. Status: Acute (10) Constipation: Problem details: RESOLVED - continue stool softener bid, miralax prn Stool softener bid, miralax daily until regular stools, rectal suppository x1 - had 3 large BM Encourage up to commode (nursing staff reports patient is refusing) Status: Resolved (11) Urinary tract infection: Problem details: RESOLVED - E Coli; in addition to + wound culture for Proteus, MRSA, and GBS - did not cover wound culture given clinical stability and likelihood of multi bacterial contaminant - s/p treatment with 3 day course of Ertapenem (03/06-03/08) Status: Resolved (12) Metabolic alkalosis: Problem details: RESOLVED - noted on 03/04, likely 2/2 diuresis - 03/04: decreased Torsemide from 40mg BID --> 20mg BID, continue Spironolactone - 03/05: VBG has normalized, continue current medications and monitor - 03/07: pH increased, patient continues to have high UOP. Decreased Torsemide from 20mg BID --> 20mg once/day, d/c Potassium as well, on Spironolactone Status: Resolved (13) Acute respiratory failure: Problem details: RESOLVED - noted after admission (03/02) overnight, primarily hypoventilation with both hypoxia and hypercarbia associated with AMS - likely combination of LAKEISHA, OHS, HFpEF, anxiety. Persistent intermittent tachypnea noted during stay without other associated features - has BIPAP available if needed and tolerated Status: Resolved (14) Osteoarthritis: Problem details: - longstanding, severe back and knee pain which has been disabling for her, working with therapies and continue to provide non-opiate pain management Status: Acute (15) Left knee pain: Problem details: Optimally she would get knee replacement but she has a very poor surgical candidate and high risk for complications and infection and poor recovery. Status: Acute (16) Medically noncompliant: Problem details: She has had 3 discharge is against medical advice from [place] [facility] since October 12 2023. - history of refusing recommended medications, procedures, treatments - Willing to consider rehab, but I am not sure if that is an option. I think she need long-te Status: Acute (17) Debility: Problem details: - acute on chronic, worsening weakness. This is becoming a pattern of worsening weakness upon returning home after leaving AMA from rehab. I have ordered PT and OT. She will again need rehab and would likely benefit from more permanent placement at a [place] [facility] to prevent the cycle of returning home at which she is likely more sedentary and does not get turned which likely leads to the sacral ulcer opening up again. Status: Acute (18) Bilateral leg weakness: Problem details: Unable to stand and transfer due to pain and weakness. Patient states she wants and EZ stand at home. Therapy staff have previously indicated that she could not demonstrate safe use of EZ stand. Will have PT and OT evaluate and treat. Will need SNF. Status: Chronic Subjective Date Seen: 03/17/24 Interval history: 17 days since admission to inpatient on 03/02/2024, and was in observation status for 2 days prior to that. We were all set for a discharge to a [place] [facility] today until the [place] [facility] [place] [facility] announced that they needed to do additional assessments before they can accept her in transfer in [place] because of a recently appointed court guardian. Patient indicates her condition is stable. No new concerns today. She indicates she is happy that she does not have to leave the hospital today. She indicates she is willing to leave the hospital for the fci if after the assessments it is deemed that she can be transferred to the fci. Does specify that she would rather go to a local fci about all possible. I indicate to her that of the over 100 facilities that we have made a referral to, this is the 1st 1 that is able to accept her, including local nursing homes. Exam Narrative: Exam Narrative: Patient appears comfortable in her hospital bed. Alert and oriented x4. Talkative and cooperative today. Lungs are clear to auscultation. Heart tones with regular rhythm. Abdomen is obese with active bowel sounds, soft. Const: Vital Signs, click to edit/add: Vital Signs - 24 hr 03/16/24 15:00 03/16/24 15:00 03/16/24 23:00 Temperature 97.6 F Pulse Rate [Pulse Oximeter] 82 Respiratory Rate 22 20 18 Blood Pressure [Ri ght forearm] 121/62 Blood Pressure [le ft FA] Pulse Oximetry 96 96 Oxygen Delivery Me thod Room Air Room Air Room Air 03/16/24 23:30 03/17/24 05:19 03/17/24 07:00 Temperature 97.8 F Pulse Rate [Pulse Oximeter] 79 Respiratory Rate 17 18 21 Blood Pressure [Ri ght forearm] Blood Pressure [le ft FA] 122/68 Pulse Oximetry 93 Oxygen Delivery Me thod Room Air 03/17/24 07:00 03/17/24 10:00 Temperature Pulse Rate [Pulse Oximeter] 79 Respiratory Rate 21 21 Blood Pressure [Ri ght forearm] Blood Pressure [le ft FA] Pulse Oximetry 93 Oxygen Delivery Me thod Room Air
[2024-03-17] MEDS: polyethylene glycoL 3350 17 GM PACK PO (14:09)
--- NOTE | 2024-03-17 16:26 | PC.SOCIAL ---
Discharge planning: Secure emailed with GuardianAliyah, who is aware and agrees with plans for discharge to [facility] in [facility]. PAS was submitted. PAS result indicated pt needs a Level 2 OBRA screening prior to discharge to a group home facility from the hospital. bridge worker apprentice called the PAS line at [facility] and spoke with Joslyn regarding this process. Joslyn states PAS will be forwarded to pt's [facility] managed care and from there will be sent for follow up to [facility]. Joslyn provided the contact information for [facility] OBRA level 2 contact: Kenya Sin [phone]. Called Kenya who stated they have not yet received the referral but that they have 9 days from when they receive it to complete the screening. She shared that since this patient is in the hospital and does not need hospital level of care, she will try to have the assessment completed by Wednesday or Wednesday next week. Called pt's [facility] [employer] Grain Farmer Ludwin Karlie [phone] and left a phone message requesting any assistance he could provide with expediting the level 2 screening by [facility]. Called and spoke with pt's guardian Aliyah to explain the delay in discharge due to pt needing this assessment completed prior to discharge. Called and spoke with Zachary in admitting at [facility] who confirmed they can not accept pt prior to the assessment being completed and will need the results of the assessment and updated medical information sent when assessment has been completed to re-evaluate pt for admit. If there are no changes in her care needs by discharge, [facility] expects to have a bed available for pt, even though they are not able to hold a bed. bridge worker apprentice to follow up as needed.
--- NOTE | 2024-03-17 19:27 | PC.NURSE ---
Nursing Care Hours: [id number] Pt this shift was told she was discharging today so pt declined to get into w/c. By 1130, plans of discharged were cancelled and when discussing the days plan with pt, pt stated she would not be getting up until later for dinner. Utility Division Project Manager reinforced the education about moving and changing positions to prevent skin breakdown and to regain strength. Pt said her back hurt too much. Utility Division Project Manager then asked pt to roll to her R side so chief writer can inspect left side but pt refused d/t pain. Lidocaine patches on, pain meds given in the AM. Utility Division Project Manager approached position change and w/c with pt multiple times throughout the shift with pt continuing to refuse. Pt c/o feeling constipated and requested a suppository. Utility Division Project Manager explained to pt that we need to start with position changes and sitting on BSC first. pt refused but did accept miralax. Ended up having a BM and two person assist to clean up.
[2024-03-17] MEDS: ENOXAPARIN 40 MG/0.4 ML INJ SUBCUT (20:37)
[2024-03-17] MEDS: ONDANSETRON ODT 4 MG TAB PO (20:49)
[2024-03-18 06:00] VITALS: RESP 18
--- NOTE | 2024-03-18 06:58 | PC.NURSE ---
Addendum entered by Mayra Corona 03/18/24 07:41: Pt reported feeling nausea at HS, managed with PRN Zofran. Original Note: Pt alert and oriented x3. Afebrile. Pt reports 8/10 pain in back and 6/10 left knee pain, PRN Tylenol offered pt refused. Pt refused turning and reposition due to chronic left leg pain, offered PRN Tylenol, pt refused stating Tylenol does nothing. Education given on increased risk of bed sores and tissue due to prolonged periods of staying in same position. Pt makes informed refusal. Pt will occasionally call on her own to be repositioned on her left side if she feels uncomfortable but refuses to lie on her back or her right side.?Pt's covarrubias catheter is patent and draining.
[2024-03-18] MEDS: OMEPRAZOLE 20 MG CAPSULE DR PO (07:35)
[2024-03-18] MEDS: TORSEMIDE 20 MG TABLET PO (08:23)
[2024-03-18 08:25] VITALS: BP 142/71; PULSE 78; RESP 20; TEMP 36.6; O2SAT 95
[2024-03-18] MEDS: FLUTICASONE PROPIONATE NASAL 1 SPRAY NOSTRIL-B (08:33)
[2024-03-18] MEDS: DULOXETINE 30 MG CAPSULE DR 90 MG PO (08:33)
[2024-03-18] MEDS: NYSTATIN POWDER 1 APPLIC TOPICAL ×2 (08:34→21:04)
[2024-03-18] MEDS: CELECOXIB 200 MG CAPSULE PO (08:34)
[2024-03-18] MEDS: DOCUSATE SODIUM 100 MG CAPSULE PO ×2 (08:34→21:03)
[2024-03-18] MEDS: BUSPIRONE 10 MG TABLET PO ×2 (08:34→21:03)
[2024-03-18] MEDS: LACTOBACILLUS ACIDOPHILUS 1 TABLET 1 TAB PO (08:34)
[2024-03-18] MEDS: METOPROLOL SUCCINATE (XL) 50 MG TAB PO (08:34)
[2024-03-18] MEDS: SPIRONOLACTONE 25 MG TABLET PO (08:35)
[2024-03-18] MEDS: FERROUS SULFATE 325 MG TABLET PO (08:35)
--- NOTE | 2024-03-18 10:41 | P.IMPN_ITS ---
Progress Note: A&P Assessment and plan (1) Adult failure to thrive: Problem details: - Failing at home without extra support; requires SNF level care for wound/skin care, therapies - amenable to SNF stay when bed available. Guardian has been appointed. Awaiting more comprehensive correction facility assessment before they are willing to accept her. Status: Acute (2) Ulcer of sacral region, stage 4: Problem details: - hospitalized for this in 06/05, improved 09/2023, patient and partner reported prior resolution - as of 02/2024, stage 4 again - historically has refused surgery and debridement; General Surgery has evaluated; no current surgical needs identified, would require transfer if that were to change - medical management, offloading pressure is primary treatment at this time, in addition to wound and skin care - no evidence of acute infectious process - daily wound care orders in place Status: Chronic (3) Acute diastolic CHF (congestive heart failure): Problem details: - HFpEF with formal TTE results below (03/02/24), no obvious valvular disease or wall motion abnormality - continue diuresis - torsemide 20mg daily Limited Echocardiogram performed 1. Technically limited exam. 2. Normal LV size, not well visualized wall thickness (~upper limit of normal-mildly increased), normal global systolic function with an estimated EF of 60 - 65%. 3. Right ventricle is not well visualized. It appears normal in limited views. 4. No significant valve disease detected. Status: Acute (4) Obesity hypoventilation syndrome: Problem details: - likely given habitus, elevated pCO2, elevated bicarbonate. Would benefit from outpatient sleep study, CPAP/BIPAP if willing - has not been willing heretofore. Status: Chronic (5) Anxiety: Problem details: - long history of this, on Duloxetine 60mg Qday; previously on prn Lorazepam (not continuing regularly given high risk of complications) - 03/07/24: increased Duloxetine to 90mg/day, added low dose Buspirone BID Status: Chronic (6) Morbid obesity: Problem details: - chronic with BMI 58, complications include OHS - weight on discharge in 06/05 was 111kg, current weight 141kg - now at 131kg - unclear what her weight was upon leaving [facility] - Nutrition consult, 1500 calorie diet recommended. Patient not able, unwilling to comply. Family bringing in food. Nutrition will continue to follow and encourage healthy food choices but ultimately, patient has the right to continue to make poor choices and we will not police family bringing in food so regular diet has been ordered Status: Chronic (7) Chronic pain: Problem details: - previously on opioids, then buprenorphine - high risk for respiratory complications, has order for low dose Oxycodone during the day prior to cares prn - current non-opiate pain management: scheduled APAP, Celebrex, Duloxetine, Lidocaine patch, topical Aspercreme - continue PT and OT for core strengthening Status: Chronic (8) Chronic acquired lymphedema: Problem details: - chronic, bilateral; compression and elevation if she will tolerate - seen by lymphedema therapist 03/06 - Patient is refusing leg wraps Status: Chronic (9) Discharge planning issues: Problem details: - appreciate assistance from therapy teams and SW; emergency guardianship through [facility] obtained 03/03/24 - patient was thought to be ready for discharge on 03/17/2024 until correction facility that had previously accepted her announce that they needed to do additional assessments and cooperation with the [facility] given the patient had a recent court appointed guardian. Await this additional layer of assessment before possible discharge. Anticipate this assessment may be done either early or middle part of week of 03/19/2024. Status: Acute (10) Constipation: Problem details: RESOLVED - continue stool softener bid, miralax prn Stool softener bid, miralax daily until regular stools, rectal suppository x1 - had 3 large BM Encourage up to commode (nursing staff reports patient is refusing) Status: Resolved (11) Urinary tract infection: Problem details: RESOLVED - E Coli; in addition to + wound culture for Proteus, MRSA, and GBS - did not cover wound culture given clinical stability and likelihood of multi bacterial contaminant - s/p treatment with 3 day course of Ertapenem (03/06-03/08) Status: Resolved (12) Metabolic alkalosis: Problem details: RESOLVED - noted on 03/04, likely 2/2 diuresis - 03/04: decreased Torsemide from 40mg BID --> 20mg BID, continue Spironolactone - 03/05: VBG has normalized, continue current medications and monitor - 03/07: pH increased, patient continues to have high UOP. Decreased Torsemide from 20mg BID --> 20mg once/day, d/c Potassium as well, on Spironolactone Status: Resolved (13) Acute respiratory failure: Problem details: RESOLVED - noted after admission (03/02) overnight, primarily hypoventilation with both hypoxia and hypercarbia associated with AMS - likely combination of LAKEISHA, OHS, HFpEF, anxiety. Persistent intermittent tachypnea noted during stay without other associated features - has BIPAP available if needed and tolerated Status: Resolved (14) Osteoarthritis: Problem details: - longstanding, severe back and knee pain which has been disabling for her, working with therapies and continue to provide non-opiate pain management Status: Acute (15) Left knee pain: Problem details: Optimally she would get knee replacement but she has a very poor surgical candidate and high risk for complications and infection and poor recovery. Status: Acute (16) Medically noncompliant: Problem details: She has had 3 discharge is against medical advice from correction facilities since October 12 2023. - history of refusing recommended medications, procedures, treatments - Willing to consider rehab, but I am not sure if that is an option. I think she need long-term care Status: Acute (17) Debility: Problem details: - acute on chronic, worsening weakness. This is becoming a pattern of worsening weakness upon returning home after leaving AMA from rehab. I have ordered PT and OT. She will again need rehab and would likely benefit from more permanent placement at a correction facility to prevent the cycle of returning home at which she is likely more sedentary and does not get turned which likely leads to the sacral ulcer opening up again. Status: Acute (18) Bilateral leg weakness: Problem details: Unable to stand and transfer due to pain and weakness. Patient states she wants and EZ stand at home. Therapy staff have previously indicated that she could not demonstrate safe use of EZ stand. Will have PT and OT evaluate and treat. Will need SNF. Status: Chronic Plan 1. Reviewed impression with patient 2. Reviewed plans with patient 3. Answered patient's questions 4. Patient agreeable to above stated plans and recommendations Time Spent With Patient Total time spent: 35 minutes Subjective Date Seen: 03/18/24 Interval history: 18 days since admission to inpatient on 03/02/2024, and was in observation status for 2 days prior to that. We were all set to discharge to a correction facility on 03/17/2024 until the correction facility suddenly called and announced that they needed to do additional assessments before they can accept her in transfer in great [place] because the patient was recently appointed a court guardian. She is generally feeling well today. Notes a sense of upset stomach. Intermittent nausea without vomiting. Denies abdominal pain. Has chronic pains. Ate her breakfast without difficulties. Exam Narrative: Exam Narrative: I examine her in her hospital room. Appears comfortable and in no acute distress. Friendly, articulate, cooperative today - not particularly anxious, agitated, or angry today as she often is. Alert and oriented x4. Lungs clear to auscultation. Heart tones with regular rhythm. Abdomen with active bowel sounds, soft. Obese abdomen. Const: Vital Signs, click to edit/add: Vital Signs - 24 hr 03/17/24 15:00 03/17/24 20:56 03/17/24 22:50 Temperature 97.6 F Pulse Rate [Pulse Oximeter] 69 Respiratory Rate 22 22 Blood Pressure [Ri ght forearm] 122/58 L Pulse Oximetry 93 91 91 Oxygen Delivery Me thod Room Air Room Air Room Air 03/17/24 23:13 03/18/24 06:00 03/18/24 08:25 Temperature 98 F Pulse Rate [Pulse Oximeter] 78 Respiratory Rate 20 18 20 Blood Pressure [Ri ght forearm] 142/71 H Pulse Oximetry 95 Oxygen Delivery Me thod Room Air 03/18/24 08:25 03/18/24 08:25 Temperature Pulse Rate [Pulse Oximeter] 78 Respiratory Rate 20 20 Blood Pressure [Ri ght forearm] Pulse Oximetry 95 Oxygen Delivery [place] thod Room Air
[2024-03-18] MEDS: LIDOCAINE 5% PATCH 2 PATCH TRANSDERMA ×2 (10:46→21:32)
[2024-03-18] MEDS: LIDOCAINE 5% PATCH 1 PATCH TRANSDERMA ×2 (10:50→21:33)
[2024-03-18] MEDS: polyethylene glycoL 3350 17 GM PACK PO (14:29)
[2024-03-18] MEDS: ACETAMINOPHEN 500 MG TABLET 1000 MG PO ×2 (15:27→23:35)
[2024-03-18 15:31] VITALS: BP 117/60; PULSE 81; RESP 20; TEMP 36.4; O2SAT 92
--- NOTE | 2024-03-18 18:09 | PC.NURSE ---
End of Shift: Patient pleasant and cooperative. Patient vitally stable, lungs clear, BS WNL, NO IV. Patient always rates back pain 8/10, tylenol given once. Patient has been in bed all day, refuses activity. Wound care performed on sacrum. Patient refused washing up body or changing interdry in abdominal folds. Calf and posterior knee dressing C/D/I. Two Lidocaine patches on lower back, right and left of spine, 1 lidocaine patch on left knee. Patient covarrubias draining and intact, patient had 1 hard BM, miralax given. Patient tolerating regular diet.
[2024-03-18] MEDS: ENOXAPARIN 40 MG/0.4 ML INJ SUBCUT (21:03)
[2024-03-18 21:20] VITALS: BP 98/86; PULSE 78; RESP 22; TEMP 36.6; O2SAT 91
[2024-03-18 23:30] VITALS: RESP 18
[2024-03-18] MEDS: ONDANSETRON ODT 4 MG TAB PO (23:35)
[2024-03-18] MEDS: bisacodyL 10 MG SUPP.RECT PR (23:36)
[2024-03-19 06:00] VITALS: RESP 20
[2024-03-19 06:27] LABS: Hematocrit 35.2 % (33.0-51.0); Hemoglobin* 10.8 gm/dL (12.0-16.0); Mean Corpuscular HGB Conc 31 gm/dL (32-36); Mean Corpuscular Hemoglobin 28 pg (26-34); Mean Corpuscular Volume 92 fL (80-100); Platelet Count* 196 K/uL (140-440); Red Blood Count 3.82 m/uL (4.00-5.20); White Blood Count* 7.15 K/uL (4.50-11.00)
[2024-03-19 06:30] LABS: Slide Review Reflex No
--- NOTE | 2024-03-19 06:30 | PC.NURSE ---
END OF SHIFT NOTE: PT A&O. DENIES CP & SOB. PT C/O ?UPSET STOMACH? WITH RELIEF FROM PRN MED (SEE EMAR). PT REMAINED IN BED THIS SHIFT. PT REFUSED REPOSITIONING. PT EDUCATED ON IMPORTANCE OF OFFLOADING WT AND REPOSITIONING FOR SKIN HEALTH. PT STILL REFUSED AND STATED, ?I?LL DO IT MYSELF?.?RESTFUL NIGHT VS. VSS ON RA; AFEBRILE. PT HAD 4 FORMED BM?S THIS SHIFT.?CALL LIGHT WITHIN PT?S REACH.
[2024-03-19 06:39] LABS: Chloride* 100 mmol/L (96-114); Potassium* 4.6 mmol/L (3.6-5.1); Sodium* 138 mmol/L (135-149)
[2024-03-19 06:42] LABS: Anion Gap 7 mEq/L (7-15); Blood Urea Nitrogen* 30 mg/dL (7-30); Calcium* 9.3 mg/dL (8.4-10.6); Carbon Dioxide* 31 mmol/L (20-32); Creatinine* 1.2 mg/dL (0.5-1.5); Est. Creatinine Clearance* 38.21; Estimated Glomerular Filt Rate 49 ml/min; Glucose* 106 mg/dL (60-115); Phosphorus* 4.1 mg/dL (2.5-4.5)
[2024-03-19] MEDS: OMEPRAZOLE 20 MG CAPSULE DR PO (06:46)
[2024-03-19 07:00] VITALS: BP 121/71; PULSE 89; RESP 20; TEMP 36.2; O2SAT 95
[2024-03-19 08:00] VITALS: PULSE 89; RESP 20
[2024-03-19] MEDS: DOCUSATE SODIUM 100 MG CAPSULE PO ×2 (09:06→20:18)
[2024-03-19] MEDS: TORSEMIDE 20 MG TABLET PO (09:06)
[2024-03-19] MEDS: CELECOXIB 200 MG CAPSULE PO (09:06)
[2024-03-19] MEDS: BUSPIRONE 10 MG TABLET PO ×2 (09:06→20:16)
[2024-03-19] MEDS: LACTOBACILLUS ACIDOPHILUS 1 TABLET 1 TAB PO (09:07)
[2024-03-19] MEDS: DULOXETINE 30 MG CAPSULE DR 90 MG PO (09:07)
[2024-03-19] MEDS: METOPROLOL SUCCINATE (XL) 50 MG TAB PO (09:07)
[2024-03-19] MEDS: SPIRONOLACTONE 25 MG TABLET PO (09:07)
[2024-03-19] MEDS: FERROUS SULFATE 325 MG TABLET PO (09:07)
[2024-03-19] MEDS: FLUTICASONE PROPIONATE NASAL 1 SPRAY NOSTRIL-B (09:11)
[2024-03-19] MEDS: ACETAMINOPHEN 500 MG TABLET 1000 MG PO ×2 (09:18→16:44)
--- NOTE | 2024-03-19 09:51 | P.IMPN_ITS ---
Progress Note: A&P Assessment and plan (1) Adult failure to thrive: Problem details: - Failing at home without extra support; requires SNF level care for wound/skin care, therapies - amenable to SNF stay when bed available. Guardian has been appointed. Awaiting more comprehensive senior care facility assessment before they are willing to accept her. Status: Acute (2) Ulcer of sacral region, stage 4: Problem details: - hospitalized for this in 06/05, improved 09/2023, patient and partner reported prior resolution - as of 02/2024, stage 4 again - historically has refused surgery and debridement; General Surgery has evaluated; no current surgical needs identified, would require transfer if that were to change - medical management, offloading pressure is primary treatment at this time, in addition to wound and skin care - no evidence of acute infectious process - daily wound care orders in place Status: Chronic (3) Acute diastolic CHF (congestive heart failure): Problem details: - HFpEF with formal TTE results below (03/02/24), no obvious valvular disease or wall motion abnormality - continue diuresis - torsemide 20mg daily Limited Echocardiogram performed 1. Technically limited exam. 2. Normal LV size, not well visualized wall thickness (~upper limit of normal-mildly increased), normal global systolic function with an estimated EF of 60 - 65%. 3. Right ventricle is not well visualized. It appears normal in limited views. 4. No significant valve disease detected. Status: Acute (4) Obesity hypoventilation syndrome: Problem details: - likely given habitus, elevated pCO2, elevated bicarbonate. Would benefit from outpatient sleep study, CPAP/BIPAP if willing - has not been willing heretofore. Status: Chronic (5) Anxiety: Problem details: - long history of this, on Duloxetine 60mg Qday; previously on prn Lorazepam (not continuing regularly given high risk of complications) - 03/07/24: increased Duloxetine to 90mg/day, added low dose Buspirone BID Status: Chronic (6) Morbid obesity: Problem details: - chronic with BMI 58, complications include OHS - weight on discharge in 06/05 was 111kg, current weight 141kg - now at 131kg - unclear what her weight was upon leaving [facility] - Nutrition consult, 1500 calorie diet recommended. Patient not able, unwilling to comply. Family bringing in food. Nutrition will continue to follow and encourage healthy food choices but ultimately, patient has the right to continue to make poor choices and we will not police family bringing in food so regular diet has been ordered Status: Chronic (7) Chronic pain: Problem details: - previously on opioids, then buprenorphine - high risk for respiratory complications, has order for low dose Oxycodone during the day prior to cares prn - current non-opiate pain management: scheduled APAP, Celebrex, Duloxetine, Lidocaine patch, topical Aspercreme - continue core strengthening Status: Chronic (8) Chronic acquired lymphedema: Problem details: - chronic, bilateral; compression and elevation if she will tolerate - seen by lymphedema therapist 03/06 - Patient is refusing leg wraps Status: Chronic (9) Discharge planning issues: Problem details: - appreciate assistance from therapy teams and ; emergency guardianship through [facility] obtained 03/03/24 - patient was thought to be ready for discharge on 03/17/2024 until senior care facility that had previously accepted her, [facility], announced that they needed to do additional assessments and cooperation with the [facility] given the patient had a recent court appointed guardian. Await this additional layer of assessment before possible discharge. Anticipate this assessment may be done either early or middle part of week of 03/19/2024. Status: Acute (10) Constipation: Problem details: RESOLVED - continue stool softener bid, miralax prn Stool softener bid, miralax daily until regular stools, rectal suppository x1 - had 3 large BM Encourage up to commode (nursing staff reports patient is refusing) Status: Resolved (11) Urinary tract infection: Problem details: RESOLVED - E Coli; in addition to + wound culture for Proteus, MRSA, and GBS - did not cover wound culture given clinical stability and likelihood of multi bacterial contaminant - s/p treatment with 3 day course of Ertapenem (03/06-03/08) Status: Resolved (12) Metabolic alkalosis: Problem details: RESOLVED - noted on 03/04, likely 2/2 diuresis - 03/04: decreased Torsemide from 40mg BID --> 20mg BID, continue Spironolactone - 03/05: VBG has normalized, continue current medications and monitor - 03/07: pH increased, patient continues to have high UOP. Decreased Torsemide from 20mg BID --> 20mg once/day, d/c Potassium as well, on Spironolactone Status: Resolved (13) Acute respiratory failure: Problem details: RESOLVED - noted after admission (03/02) overnight, primarily hypoventilation with both hypoxia and hypercarbia associated with AMS - likely combination of LAKEISHA, OHS, HFpEF, anxiety. Persistent intermittent tachypnea noted during stay without other associated features - has BIPAP available if needed and tolerated Status: Resolved (14) Osteoarthritis: Problem details: - longstanding, severe back and knee pain which has been disabling for her, working with therapies and continue to provide non-opiate pain management Status: Acute (15) Left knee pain: Problem details: Optimally she would get knee replacement but she has a very poor surgical candidate and high risk for complications and infection and poor recovery. Status: Acute (16) Medically noncompliant: Problem details: She has had 3 discharges against medical advice from senior care facilities since October 12 2023. - history of refusing recommended medications, procedures, treatments - Willing to consider long-term care Status: Acute (17) Debility: Problem details: - acute on chronic, worsening weakness. This is becoming a pattern of worsening weakness upon returning home after leaving AMA from rehab. I have ordered PT and OT. She will again need rehab and would likely benefit from more permanent placement at a senior care facility to prevent the cycle of returning home at which she is likely more sedentary and does not get turned which likely leads to the sacral ulcer opening up again. Status: Acute (18) Bilateral leg weakness: Problem details: Unable to stand and transfer due to pain and weakness. Patient states she wants and EZ stand at home. Therapy staff have previously indicated that she could not demonstrate safe use of EZ stand. Will have PT and OT evaluate and treat. Will need SNF. Status: Chronic Plan 1. Reviewed impression with patient 2. Reviewed plans recommendations with patient 3. Answered patient's questions are satisfaction 4. Patient agreeable with above stated plans and recommendations Time Spent With Patient Total time spent: 30 minutes Subjective Date Seen: 03/19/24 Interval history: 19 days since admission to inpatient on 03/02/2024, and was in observation stat us for 2 days prior to that. We were all set to discharge to a senior care facility on 03/17/2024 until the senior care facility suddenly called and announced that they needed to do additional assessments before they can accept her in transfer in [place] because the patient was recently appointed a court guardian. She is indicates she is feeling well. Not interested in eating much of a breakfast today. Upset stomach that she had yesterday has since resolved spontaneously. In her mind she is more prepared for discharge from the hospital to [facility] later this week if they are willing to accept her after they assess her early this week. Exam Narrative: Exam Narrative: I examine her in her as she is sitting propped up in her hospital bed in her hospital room. Appears comfortable and in no acute distress. Cooperative, friendly, talkative. Lungs clear to auscultation. Heart tones with regular rhythm. Abdomen is obese with active bowel sounds, soft. Chronic lymphedema of lower extremities. Const: Vital Signs, click to edit/add: Vital Signs - 24 hr 03/18/24 15:31 03/18/24 15:31 03/18/24 21:20 Temperature 97.6 F Pulse Rate [Pulse Oximeter] 81 Respiratory Rate 20 20 22 Blood Pressure [Ri ght forearm] 117/60 Pulse Oximetry 92 92 91 Oxygen Delivery Me thod Room Air Room Air Room Air 03/18/24 21:20 03/18/24 23:30 03/19/24 06:00 Temperature 97.9 F Pulse Rate [Pulse Oximeter] 78 Respiratory Rate 22 18 20 Blood Pressure [Ri ght forearm] 98/86 Pulse Oximetry 91 Oxygen Delivery Me thod Room Air 03/19/24 07:00 03/19/24 07:00 03/19/24 08:00 Temperature 97.2 F L Pulse Rate [Pulse Oximeter] 89 89 Respiratory Rate 20 20 20 Blood Pressure [Ri ght forearm] 121/71 Pulse Oximetry 95 95 Oxygen Delivery Me thod Room Air Room Air Labs Labs: Laboratory Results - last 24 hr 03/19/24 05:57 WBC 7.15 RBC 3.82 L Hgb 10.8 L Hct 35.2 MCV 92 MCH 28 MCHC 31 L Plt Count 196 Sodium 138 Potassium 4.6 Chloride 100 Carbon Dioxide 31 Anion Gap 7 BUN 30 Creatinine 1.2 Estimated Creat Clear 38.21 Estimated GFR 49 Glucose 106 Calcium 9.3 Phosphorus 4.1 Albumin 4.0
[2024-03-19] MEDS: NYSTATIN POWDER 1 APPLIC TOPICAL (10:58)
[2024-03-19] MEDS: LIDOCAINE 5% PATCH 2 PATCH TRANSDERMA (10:58)
[2024-03-19 15:00] VITALS: BP 126/58; PULSE 79; RESP 16; TEMP 36.4; O2SAT 93
[2024-03-19 16:40] VITALS: RESP 16; O2SAT 93
--- NOTE | 2024-03-19 19:49 | PC.NURSE ---
End of shift-- Pt was pleasant and primarily cooperative today. VSS and pt is afebrile. SPO2 maintained >90% on RA. She c/o pain in her back which she rated 9 out of 10 today but was able to manage it with Tylenol and Lidocaine only today. Crackles auscultated in posterior bases of lungs and pt was encouraged to cough and deep breathe. Otherwise CTA. She denied nausea and ate a regular diet without difficulty. Pt continues to refuse repositioning today and refused to get up to chair and work with therapy despite encouragement and education. Skin folds remain reddened and were washed, dried and Nysatatin and Interdry applied. Dressing to coccyx was changed and is C/D/I. Boyfriend Alex was at bedside today and brought lunch for patient. Son and granddaughter also visited this afternoon. Gutierrez is patent and drained approximately 500ml of clear, yellow urine this shift.
[2024-03-19] MEDS: ENOXAPARIN 40 MG/0.4 ML INJ SUBCUT (20:16)
--- NOTE | 2024-03-19 23:27 | PC.NURSE ---
End of shift [id number]: Pt AxOx4, pleasant. She c/o pain chronic back pain, but stated tolerating. Pt denies nausea. Removed 3 lidocaine patches, 2 on back, 1 on LLE. Pt continues to refuse repositioning despite encouragement and education. Nysatatin and Interdry assessed. Pt refused scheduled nystatin @ HS, and requested Interdry in between breasts. Gutierrez is patent and draining. Pt requested to be left alone after HS medications. Pt uses call light appropriately. Pt appears resting with call light in reach, watching television.
[2024-03-20] VITALS (8 sets, daily range): BP systolic 119–121; BP diastolic 68–74; PULSE 76–77; RESP 16–20; TEMP 36.3–36.4; O2SAT 93–96; BMI 49.6
--- NOTE | 2024-03-20 07:01 | PC.NURSE ---
END OF SHIFT NOTE: PT SLEPT THROUGHOUT SHIFT. RODRIGEZ PATENT. NO IV IN PLACE. PT REQUESTED TO BE LEFT ALONE FOR THE NIGHT. UNEVENTFUL SHIFT.
[2024-03-20] MEDS: CELECOXIB 200 MG CAPSULE PO (09:33)
[2024-03-20] MEDS: OMEPRAZOLE 20 MG CAPSULE DR PO (09:33)
[2024-03-20] MEDS: TORSEMIDE 20 MG TABLET PO (09:34)
[2024-03-20] MEDS: DOCUSATE SODIUM 100 MG CAPSULE PO (09:34)
[2024-03-20] MEDS: BUSPIRONE 10 MG TABLET PO ×2 (09:34→20:48)
[2024-03-20] MEDS: FERROUS SULFATE 325 MG TABLET PO (09:34)
[2024-03-20] MEDS: METOPROLOL SUCCINATE (XL) 50 MG TAB PO (09:34)
[2024-03-20] MEDS: DULOXETINE 30 MG CAPSULE DR 90 MG PO (09:35)
[2024-03-20] MEDS: LACTOBACILLUS ACIDOPHILUS 1 TABLET 1 TAB PO (09:35)
[2024-03-20] MEDS: SPIRONOLACTONE 25 MG TABLET PO (09:36)
[2024-03-20] MEDS: FLUTICASONE PROPIONATE NASAL 1 SPRAY NOSTRIL-B (09:36)
--- NOTE | 2024-03-20 09:42 | P.IMPN_ITS ---
Progress Note: A&P Assessment and plan (1) Adult failure to thrive: Problem details: - Failing at home without extra support; requires SNF level care for wound/skin care, therapies - amenable to SNF stay when bed available. Guardian has been appointed. Awaiting more comprehensive jail facility assessment before they are willing to accept her, possibly 03/21 Status: Acute (2) Ulcer of sacral region, stage 4: Problem details: - hospitalized for this in 06/05, improved 09/2023, patient and partner reported prior resolution - as of 02/2024, stage 4 again - historically has refused surgery and debridement; General Surgery has evaluated; no current surgical needs identified, would require transfer if that were to change - medical management, offloading pressure is primary treatment at this time, in addition to wound and skin care - no evidence of acute infectious process - daily wound care orders in place Status: Chronic (3) Acute diastolic CHF (congestive heart failure): Problem details: - HFpEF with formal TTE results below (03/02/24), no obvious valvular disease or wall motion abnormality - continue diuresis - torsemide 20mg daily Limited Echocardiogram performed 1. Technically limited exam. 2. Normal LV size, not well visualized wall thickness (~upper limit of normal- mildly increased), normal global systolic function with an estimated EF of 60 - 65%. 3. Right ventricle is not well visualized. It appears normal in limited views. 4. No significant valve disease detected. Status: Acute (4) Obesity hypoventilation syndrome: Problem details: - likely given habitus, elevated pCO2, elevated bicarbonate. Would benefit from outpatient sleep study, CPAP/BIPAP if willing - has not been willing heretofore. Status: Chronic (5) Anxiety: Problem details: - long history of this, on Duloxetine 60mg Qday; previously on prn Lorazepam (not continuing regularly given high risk of complications) - 03/07/24: increased Duloxetine to 90mg/day, added low dose Buspirone BID Status: Chronic (6) Morbid obesity: Problem details: - chronic with BMI 58, complications include OHS - weight on discharge in 06/05 was 111kg, current weight 141kg - now at 131kg - unclear what her weight was upon leaving [facility] SN[facility] - Nutrition consult, 1500 calorie diet recommended. Patient not able, unwilling to comply. Family bringing in food. Nutrition will continue to follow and encourage healthy food choices but ultimately, patient has the right to continue to make poor choices and we will not police family bringing in food so regular diet has been ordered Status: Chronic (7) Chronic pain: Problem details: - previously on opioids, then buprenorphine - high risk for respiratory complications, has order for low dose Oxycodone during the day prior to cares prn - current non-opiate pain management: scheduled APAP, Celebrex, Duloxetine, Lidocaine patch, topical Aspercreme - continue core strengthening Status: Chronic (8) Chronic acquired lymphedema: Problem details: - chronic, bilateral; compression and elevation if she will tolerate - seen by lymphedema therapist 03/06 - Patient is refusing leg wraps Status: Chronic (9) Discharge planning issues: Problem details: - appreciate assistance from therapy teams and ; emergency guardianship through [facility] obtained 03/03/24 - patient was thought to be ready for discharge on 03/17/2024 until jail facility that had previously accepted her, [facility], announced that they needed to do additional assessments and cooperation with the [facility] given the patient had a recent court appointed guardian. Await this additional layer of assessment before possible discharge. Anticipate this assessment may be done 03/21 Status: Acute (10) Constipation: Problem details: RESOLVED - continue stool softener bid, miralax prn Stool softener bid, miralax daily until regular stools, rectal suppository x1 - had 3 large BM Encourage up to commode (nursing staff reports patient is refusing) Status: Resolved (11) Urinary tract infection: Problem details: RESOLVED - E Coli; in addition to + wound culture for Proteus, MRSA, and GBS - did not cover wound culture given clinical stability and likelihood of multi bacterial contaminant - s/p treatment with 3 day course of Ertapenem (03/06-03/08) Status: Resolved (12) Metabolic alkalosis: Problem details: RESOLVED - noted on 03/04, likely 2/2 diuresis - 03/04: decreased Torsemide from 40mg BID --> 20mg BID, continue Spironolactone - 03/05: VBG has normalized, continue current medications and monitor - 03/07: pH increased, patient continues to have high UOP. Decreased Torsemide from 20mg BID --> 20mg once/day, d/c Potassium as well, on Spironolactone Status: Resolved (13) Acute respiratory failure: Problem details: RESOLVED - noted after admission (03/02) overnight, primarily hypoventilation with both hypoxia and hypercarbia associated with AMS - likely combination of LA[place]IS[place], OHS, HFpEF, anxiety. Persistent intermittent tachypnea noted during stay without other associated features - has BIPAP available if needed and tolerated Status: Resolved (14) Osteoarthritis: Problem details: - longstanding, severe back and knee pain which has been disabling for her, working with therapies and continue to provide non-opiate pain management Status: Acute (15) Left knee pain: Problem details: Optimally she would get knee replacement but she has a very poor surgical candidate and high risk for complications and infection and poor recovery. Status: Acute (16) Medically noncompliant: Problem details: She has had 3 discharges against medical advice from jail facilities since October 12 2023. - history of refusing recommended medications, procedures, treatments - Willing to consider long-term care Status: Acute (17) Debility: Problem details: - acute on chronic, worsening weakness. This is becoming a pattern of worsening weakness upon returning home after leaving AMA from rehab. I have ordered PT and OT. She will again need rehab and would likely benefit from more permanent placement at a jail facility to prevent the cycle of returning home at which she is likely more sedentary and does not get turned which likely leads to the sacral ulcer opening up again. Status: Acute (18) Bilateral leg weakness: Problem details: Unable to stand and transfer due to pain and weakness. Patient states she wants and EZ stand at home. Therapy staff have previously indicated that she could not demonstrate safe use of EZ stand. PT and OT following. Will need LTC - formal assessment 03/21 Status: Chronic Plan Awaiting formal assessment 03/21 prior to discharge Time Spent With Patient Total time spent: Total time spent caring for the patient today was 30 minutes. This includes time spent for the visit reviewing the chart, time spent during the visit, time spent after the visit and documentation and planning in coordination of care. Subjective Date Seen: 03/20/24 Interval history: Patient is sleeping heavily this morning, in usual left lateral position. No events reported overnight. Remains vitally stable. Awaiting placement, has an assessment tomorrow with hopeful discharge pending. Exam Narrative: Exam Narrative: PHYSICAL EXAM General: Lying on left side, usual position Cardiovascular: RRR Pulmonary: No dyspnea Neurological: Sleeping Extremities: Chronic edema Skin: Warm, dry. Const: Vital Signs, click to edit/add: Vital Signs - 24 hr 03/19/24 15:00 03/19/24 16:40 03/20/24 00:50 Temperature 97.6 F Pulse Rate [Pulse Oximeter] 79 Respiratory Rate 16 16 18 Blood Pressure [Ri ght forearm] 126/58 L Blood Pressure [le ft FA] Pulse Oximetry 93 93 Oxygen Delivery Me thod Room Air Room Air Room Air 03/20/24 00:50 03/20/24 00:50 03/20/24 06:00 Temperature Pulse Rate [Pulse Oximeter] Respiratory Rate 18 18 16 Blood Pressure [Ri ght forearm] Blood Pressure [le ft FA] Pulse Oximetry Oxygen Delivery In thod Room Air 03/20/24 08:35 Temperature 97.6 F Pulse Rate [Pulse Oximeter] 77 Respiratory Rate 18 Blood Pressure [Ri ght forearm] Blood Pressure [le ft FA] 121/71 Pulse Oximetry 93 Oxygen Delivery In thod Room Air
[2024-03-20] MEDS: NYSTATIN POWDER 1 APPLIC TOPICAL ×2 (11:32→20:48)
[2024-03-20] MEDS: LIDOCAINE 5% PATCH 1 PATCH TRANSDERMA (12:42)
[2024-03-20] MEDS: LIDOCAINE 5% PATCH 2 PATCH TRANSDERMA (12:43)
--- NOTE | 2024-03-20 15:39 | PC.NURSE ---
Pt pleasant, alert, oriented and vitally stable. Pt refused to get up to chair and repositioning throughout shift, despite multiple attempts and education. pt did allow wound dressing changes, sacrum, right knee and right ankle have Mepilex. Pannus, under breast and po area cleaned and intradry applied.
--- NOTE | 2024-03-20 16:38 | PC.SOCIAL ---
Social work: Level 2 preadmission screening was completed in the hospital with pt today by Bob sanders. Received email from Mili at [facility] confirming they have received the required PAS level 2 screening and can accept pt tomorrow pending review of discharge orders and nurse to nurse. An admission at 2:00 would work well for the facility. youth worker secure emailed discharge orders to [facility] and provided nurse to nurse phone number. youth worker to follow up tomorrow.
[2024-03-20] MEDS: ENOXAPARIN 40 MG/0.4 ML INJ SUBCUT (20:48)
--- NOTE | 2024-03-20 22:16 | PC.NURSE ---
Pt A & O x4. VSS. Refused to get out of bed to chair this shift. Pleasant mood. Tolerated a regular diet well. Gutierrez cath patent and intact. Planning to d/c tomorrow.
--- NOTE | 2024-03-21 06:21 | PC.NURSE ---
End of shift report [id number]: Patient slept through the night, restful vitals completed. Patient breathing even and unlabored. Pain to left knee and low back reported, pain decreased with repositioning. Gutierrez patent, draining clear, yellow urine. Denies any chest pain or SOB.
[2024-03-21] MEDS: OMEPRAZOLE 20 MG CAPSULE DR PO (06:23)
[2024-03-21] MEDS: LACTOBACILLUS ACIDOPHILUS 1 TABLET 1 TAB PO (09:01)
[2024-03-21] MEDS: DULOXETINE 30 MG CAPSULE DR 90 MG PO (09:01)
[2024-03-21] MEDS: BUSPIRONE 10 MG TABLET PO (09:02)
[2024-03-21] MEDS: TORSEMIDE 20 MG TABLET PO (09:02)
[2024-03-21] MEDS: CELECOXIB 200 MG CAPSULE PO (09:02)
[2024-03-21] MEDS: FERROUS SULFATE 325 MG TABLET PO (09:03)
[2024-03-21] MEDS: METOPROLOL SUCCINATE (XL) 50 MG TAB PO (09:03)
[2024-03-21] MEDS: DOCUSATE SODIUM 100 MG CAPSULE PO (09:03)
[2024-03-21] MEDS: SPIRONOLACTONE 25 MG TABLET PO (09:03)
[2024-03-21] MEDS: NYSTATIN POWDER 1 APPLIC TOPICAL (09:04)
[2024-03-21] MEDS: FLUTICASONE PROPIONATE NASAL 1 SPRAY NOSTRIL-B (09:04)
--- NOTE | 2024-03-21 09:24 | P.DS_ITS ---
DS: Providers Provider Date Seen: 03/21/24 Date of admission: 03/02/24 08:15 Primary care physician: Hill Broderick MD Admitting Clinician: Rocio Jorge MD Consults: 02/29/24 21:58 Consult to Occupational Therapy [CONS] Routine Comment: Reason(s) for OT Consult:: Evaluate and Treat Any Restrictions?:: No Restrictions Consult to Physical Therapy [CONS] Routine Comment: Reason(s) for PT Consult:: Evaluate and Treat Any Restrictions?:: No Restrictions Consult to Cloth Laminating Supervisor [CONS] Routine Comment: Reason for Consult:: Possible SNF placement 02/29/24 22:13 Consult to Occupational Therapy [CONS] Routine Comment: Reason(s) for OT Consult:: Difficulty Managing ADLs Any Restrictions?:: UE Immobilized Consult to Physical Therapy [CONS] Routine Comment: Reason(s) for PT Consult:: Inability to Mobilize Any Restrictions?:: UE Immobilized 03/01/24 00:51 Consult to Nutrition [CONS] Routine Comment: Reason for consult:: Weight Gain 03/02/24 08:14 Consult to Respiratory Therapy [CONS] Routine Comment: Reason(s) for RT Consult:: Consult 03/03/24 09:00 Consult to Occupational Therapy [CONS] Routine Comment: Reason(s) for OT Consult:: Evaluate and Treat Any Restrictions?:: No Restrictions Consult to Physical Therapy [CONS] Routine Comment: Reason(s) for PT Consult:: Evaluate and Treat Any Restrictions?:: No Restrictions 03/03/24 13:22 Consult to Occupational Therapy [CONS] Routine Comment: Reason(s) for OT Consult:: Evaluate and Treat Any Restrictions?:: No Restrictions Comment: MOCA 03/03/24 17:10 Consult to Occupational Therapy [CONS] Routine Comment: Reason(s) for OT Consult:: Evaluate and Treat Any Restrictions?:: See Comment Comment: regarding lymphedema management strategies Attending Physician on discharge: KALEB Coyle, PAArnodloC [facility] Date of Discharge: 03/21/24 DS: Diagnosis Discharge Diagnosis (1) Adult failure to thrive: Status: Acute Problem details: - Failing at home without extra support; requires SNF level care for wound/skin care, therapies - amenable to SNF stay when bed available. Guardian has been appointed. Accepted to [facility] (2) Ulcer of sacral region, stage 4: Status: Chronic Problem details: - hospitalized for this in 06/05, improved 09/2023, patient and partner reported prior resolution - as of 02/2024, stage 4 again - historically has refused surgery and debridement; General Surgery has evaluated; no current surgical needs identified, would require transfer if that were to change - medical management, offloading pressure is primary treatment at this time, in addition to wound and skin care - no evidence of acute infectious process Continue with daily skin and wound cares, offloading pressure upon discharge. (3) Acute diastolic CHF (congestive heart failure): Status: Acute Problem details: - HFpEF with formal TTE results below (03/02/24), no obvious valvular disease or wall motion abnormality - continue on torsemide 20mg daily Limited Echocardiogram performed 1. Technically limited exam. 2. Normal LV size, not well visualized wall thickness (~upper limit of normal- mildly increased), normal global systolic function with an estimated EF of 60 - 65%. 3. Right ventricle is not well visualized. It appears normal in limited views. 4. No significant valve disease detected. (4) Obesity hypoventilation syndrome: Status: Chronic Problem details: - likely given habitus, elevated pCO2, elevated bicarbonate. Would benefit from outpatient sleep study, CPAP/BIPAP if willing - has not been willing heretofore. (5) Anxiety: Status: Chronic Problem details: - long history of this, on Duloxetine 60mg Qday; previously on prn Lorazepam (not continuing regularly given high risk of complications) - 03/07/24: increased Duloxetine to 90mg/day, added low dose Buspirone BID - continue upon discharge (6) Morbid obesity: Status: Chronic Problem details: - chronic with BMI 58, complications include OHS - weight on discharge in 06/05 was 111kg, current weight 141kg - now at 131kg - unclear what her weight was upon leaving [facility] - Nutrition consulted, 1500 calorie diet recommended. Patient not able, unwilling to comply. Family bringing in food. Nutrition will continue to follow and encourage healthy food choices but ultimately, patient has the right to continue to make poor choices and we will not police family bringing in food so regular diet has been ordered (7) Chronic pain: Status: Chronic Problem details: - previously on opioids, then buprenorphine - high risk for respiratory complications, has order for low dose Oxycodone during the day prior to cares prn - current non-opiate pain management: scheduled APAP, Celebrex, Duloxetine, Lidocaine patch, topical Aspercreme. Continue upon discharge - continue core strengthening (8) Chronic acquired lymphedema: Status: Chronic Problem details: - chronic, bilateral; compression and elevation if she will tolerate - seen by lymphedema therapist 03/06 - Patient is refusing leg wraps. Given limited ability at care centers to continue this, while it would be in her best interest, she has been refusing regardless, therefore recommend outpatient follow-up. (9) Discharge planning issues: Status: Acute Problem details: - appreciate assistance from therapy teams and SW; emergency guardianship through [facility] obtained 03/03/24 - patient was thought to be ready for discharge on 03/17/2024 until custodial facility that had previously accepted her, [facility], announced that they needed to do additional assessments and cooperation with the [facility] given the patient had a recent court appointed guardian. Await this additional layer of assessment before possible discharge. Completed. Patient accepted and will discharge on 03/21/2024 (10) Constipation: Status: Resolved Problem details: RESOLVED - continue stool softener bid, miralax prn Stool softener bid, miralax daily until regular stools, rectal suppository x1 - had 3 large BM Encourage up to commode (nursing staff reports patient is refusing) (11) Urinary tract infection: Status: Resolved Problem details: RESOLVED - E Coli; in addition to + wound culture for Proteus, MRSA, and GBS - did not cover wound culture given clinical stability and likelihood of multi bacterial contaminant - s/p treatment with 3 day course of Ertapenem (03/06-03/08) (12) Metabolic alkalosis: Status: Resolved Problem details: RESOLVED - noted on 03/04, likely 2/2 diuresis - 03/04: decreased Torsemide from 40mg BID --> 20mg BID, continue Spironolactone - 03/05: VBG has normalized, continue current medications and monitor - 03/07: pH increased, patient continues to have high UOP. Decreased Torsemide from 20mg BID --> 20mg once/day, d/c Potassium as well, on Spironolactone (13) Acute respiratory failure: Status: Resolved Problem details: RESOLVED - noted after admission (03/02) overnight, primarily hypoventilation with both hypoxia and hypercarbia associated with AMS - likely combination of LA[place]ISHA, OHS, HFpEF, anxiety. Persistent intermittent tachypnea noted during stay without other associated features - has BIPAP available if needed and tolerated (14) Osteoarthritis: Status: Acute Problem details: - longstanding, severe back and knee pain which has been disabling for her, working with therapies and continue to provide non-opiate pain management (15) Left knee pain: Status: Acute Problem details: Optimally she would get knee replacement but she has a very poor surgical candidate and high risk for complications and infection and poor recovery. (16) Medically noncompliant: Status: Acute Problem details: She has had 3 discharges against medical advice from custodial facilities since October 12 2023. - history of refusing recommended medications, procedures, treatments - Willing to consider long-term care (17) Debility: Status: Acute Problem details: - acute on chronic, worsening weakness. This is becoming a pattern of worsening weakness upon returning home after leaving AMA from rehab. I have ordered PT and OT. She will again need rehab and would likely benefit from more permanent placement at a custodial facility to prevent the cycle of returning home at which she is likely more sedentary and does not get turned which likely leads to the sacral ulcer opening up again. (18) Bilateral leg weakness: Status: Chronic Problem details: Unable to stand and transfer due to pain and weakness. Patient states she wants and EZ stand at home. Therapy staff have previously indicated that she could not demonstrate safe use of EZ stand. PT and OT following. Will need LTC - formal assessment 03/21 completed, patient will be discharged. DS: Summary Hospital Course Hospital Course: [age] year old female well known to our facility was admitted to the medical floor for on 02/29/2024 for acute on chronic, progressing weakness. Course of care and details as noted above. Please see details of cares as noted above for hospital course 02/29/24- 03/21/2024. Will require ongoing cares of chronic disease, chronic wounds. Remainder of chronic medical comorbidities were monitored and managed with home medications. Status at Discharge Overall status at discharge: patient is back to baseline Time Spent with Patient Time attestation: Total time spent providing and/or coordinating discharge services: Time spent: Greater than 30 minutes Exam Narrative: Exam Narrative: PHYSICAL EXAM General: Cooperative, NAD Cardiovascular: RRR Pulmonary: No dyspnea Neurological: Alert, answering questions appropriately Skin: Warm, dry. Const: Vital Signs, click to edit/add: Vital Signs - 24 hr 03/20/24 15:00 03/20/24 15:00 03/20/24 23:00 Temperature 97.4 F L Pulse Rate [Pulse Oximeter] 76 Respiratory Rate 16 18 Blood Pressure [Ri ght forearm] 119/68 Blood Pressure [le ft FA] 121/74 Pulse Oximetry 95 95 96 Oxygen Delivery Me thod Room Air Room Air Room Air 03/20/24 23:30 Temperature Pulse Rate [Pulse Oximeter] Respiratory Rate 20 Blood Pressure [Ri ght forearm] Blood Pressure [le ft FA] Pulse Oximetry Oxygen Delivery Me thod DS: Data Imaging Tib fib x-ray: Attestation: I have reviewed the pertinent imaging results. Radiologist's impression: There is no displaced fracture or dislocation. There is severe tricompartmental degenerative change within the tibiofemoral joint. Additional moderate degenerative changes of the tibiotalar joint are appreciated. There is moderate to severe superficial soft tissue prominence. Impression: Moderate to severe superficial soft tissue prominence. No evidence of displaced fracture. Severe degenerative changes of the knee and visualized ankle. Femur x-ray: Attestation: I have reviewed the pertinent imaging results. Radiologist's impression: There is no displaced fracture or dislocation. Severe degenerative changes of the tibiofemoral joint. Moderate superficial soft tissue prominence. Impression: Severe degenerative changes of the tibiofemoral joint with moderate superficial soft tissue swelling. No evidence of displaced fracture. CT knee: Attestation: I have reviewed the pertinent imaging results. Radiologist's impression: Markedly artifactually degraded examination. No acute displaced fracture is identified. Severe degenerative change of the knee. Diffuse soft tissue edema. If there is a persistent clinical concern for fracture, MRI could be considered for more sensitive evaluation. Please note that all CT scans at this facility use dose modulation, iterative reconstruction, and/or weight-based dosing when appropriate to reduce radiation dose to as low as reasonably achievable. Chest x-ray: Attestation: I have reviewed the pertinent imaging results. Radiologist's impression: FINDINGS: The sensitivity and specificity of the exam are severely limited by the patient`s body habitus. Mediastinum: The mediastinum is normal in appearance. The heart silhouette is normal in size and morphology. Lung: Very small lung volumes are present with pulmonary vascular congestion, perihilar edema and atelectasis noted. No sign of pleural effusion seen. No pneumothorax is identified. Bone and Soft tissue: Unremarkable for age. IMPRESSION: 1. Very small lung volumes are present with pulmonary vascular congestion, perihilar edema and atelectasis noted. Repeat chest x-ray: Attestation: I have reviewed the pertinent imaging results. Radiologist's impression: Low lung volumes. Mildly elevated left hemidiaphragm. Normal cardiomediastinal silhouette. Moderate interstitial prominence and peribronchial cuffing. No pleural effusion or visualized pneumothorax. Impression: Moderate interstitial prominence and peribronchial cuffing may represent pulmonary edema or airways infection/inflammation, slightly decreased from prior examination. Discharge Plan Discharge Disposition: [facility] Date of Admission: 03/02/24 08:15 Attending Provider on Discharge: Emily Cisneros Primary Care Provider: Hill Broderick Condition: Stable Anticipated Discharge Date/Time: 03/17/24 11:55 Discharge Medications: New celecoxib 200 mg Capsule 200 mg PO DAILY 30 Days Qty: 30 0RF buspirone 10 mg Tablet 10 mg PO BID 30 Days Qty: 60 0RF docusate sodium 100 mg Capsule 100 mg PO BID 30 Days Qty: 60 0RF fluticasone propionate 50 mcg/actuation [place],Suspension 1 spray intranasal DAILY 30 Days Qty: 15.8 0RF duloxetine 30 mg Capsule,Delayed Release(Dr/Ec) 90 mg PO DAILY 30 Days Qty: 90 0RF metoprolol succinate 50 mg Tablet Extended Release 24 Hr 50 mg PO DAILY 30 Days Qty: 30 0RF hydrocortisone 1 % Cream 1 applic topical BID 30 Days Qty: 90 0RF lidocaine 5 % Adhesive Patch,Medicated 2 patch transdermal Q24H 30 Days Qty: 60 0RF lidocaine 5 % Adhesive Patch,Medicated 1 patch transdermal Q24H 30 Days Qty: 30 0RF omeprazole 20 mg Capsule,Delayed Release(Dr/Ec) 20 mg PO DAILY@0700 30 Days Qty: 30 0RF nystatin 100,000 unit/gram Powder 1 applic topical BID 30 Days Qty: 30 0RF oxycodone 5 mg Tablet 5 mg PO Q8H PRN30 Days Qty: 30 0RF Lactobacillus acidophilus 0.5 mg (100 million cell) Tablet 1 mg PO DAILY 30 Days Qty: 60 0RF torsemide 20 mg Tablet 20 mg PO DAILY@0800 30 Days Qty: 30 0RF spironolactone 25 mg Tablet 25 mg PO DAILY 30 Days Qty: 30 0RF trolamine salicylate [Arthricream Rub] 10 % Cream 1 applic topical TID PRN30 Days Qty: 85 0RF lorazepam 0.5 mg tablet 0.5 mg PO DAILY PRNQty: 20 0RF Continued potassium chloride 10 mEq tablet extended release 10 meq PO DAILY furosemide 20 mg tablet 20 mg PO DAILY ferrous sulfate 325 mg (65 mg iron) tablet,delayed release (DR/EC) 325 mg PO DAILY ondansetron 4 mg tablet,disintegrating 4 mg PO Q8H PRN acetaminophen 500 mg capsule 1,000 mg PO TID PRN zinc oxide Ointment 1 applic topical BID PRN Rx Instructions: for incontinence dermatitis lidocaine 4 % cream 1 applic topical DAILY PRN citalopram 20 mg tablet 20 mg PO DAILY Discontinued duloxetine 60 mg capsule,delayed release(DR/EC) 60 mg PO DAILY lorazepam 0.5 mg tablet 0.5 mg PO DAILY PRN Discharge Orders: Discharge Order (Routine); Ordered 03/21/24 Ordered By: Emily Cisneros Activity Level: Other Activity Detail: She is unable to bear weight and requires a ceiling lift for transfers; moves slowly and purposefully to avoid pain; requests that those who help her move do so under her guidance. Activity Restrictions: Gutierrez catheter in place for chronic wound cares Discharge Diet: Regular Follow Up Appointments: Hill Broderick MD [Primary Care Provider] - Forms: [facility] Info Instructions Wound Care: Sacral ulcer - Vashe soaked kerlix packed in wound with outer ABD. Zinc oxide barrier cream to bilateral buttock and posterior thigh. Admit to: SNF Discharge Potential: Poor Length of Stay: >90 days Can use facility standing orders?: Yes Code Status: Full Code TEDs: N/A Rehab Potential: Fair Therapy: Physical Therapy and Occupational Therapy Therapy Orders: Evaluate and Treat Oxygen: No Urinary Catheter: Yes Orders are good >30 days: Yes Signature: Juan Constantino
[2024-03-21 10:23] VITALS: BP 101/68; PULSE 72; RESP 20; TEMP 36.1; O2SAT 99
[2024-03-21] MEDS: LIDOCAINE 5% PATCH 1 PATCH TRANSDERMA (10:30)
[2024-03-21] MEDS: LIDOCAINE 5% PATCH 2 PATCH TRANSDERMA (10:50)
--- NOTE | 2024-03-21 10:51 | PC.SOCIAL ---
Addendum entered and electronically signed by DIANE Peacock 03/21/24 13:12: Called pt's guardian, who agrees with planned discharge to [facility] by non-emergency ambulance. Informed guardian by phone of the Medicare Rights form and right to appeal discharge. Guardian agrees with discharge plan. Original Note: Discharge planning: general production worker secure emailed discharge orders to [facility] at [facility], . general production worker also sent the facility contact information of the guardian. The facility will receive pt at 1400 today. Pt will leave hospital via non-emergency EMS around 1300. general production worker left a message for guardian, regarding the discharge plan for today and medicare rights form. general production worker to follow up as needed.
--- NOTE | 2024-03-21 13:46 | PC.NURSE ---
shift note: no IV on DC. wound care performed on sacrum, under bilat breasts and under Pinnas. Belongings reviewed and sent with pt at dc.
== END 2024-03-21 13:00 | DRG 592 ==
LOC: ED 19:39 → MEDSURG 20:13
PROVIDERS: Family Medicine; Internal Medicine; Student in an Organized Health Care Education/Training Program; Admitting Provider Family Medicine; Emergency Provider Family Medicine; PCP Family Medicine; Visit Provider Family Medicine
DX: L89.154 Pressure ulcer of sacral region, stage 4 (principal); I50.31 Acute diastolic (congestive) heart failure; J96.01 Acute respiratory failure with hypoxia; J96.02 Acute respiratory failure with hypercapnia; E66.2 Morbid (severe) obesity with alveolar hypoventilation; I13.0 Hypertensive heart and chronic kidney disease with heart failure and stage 1 through stage 4 chronic kidney disease, or unspecified chronic kidney disease; F33.9 Major depressive disorder, recurrent, unspecified; Z68.43 Body mass index [BMI] 50.0-59.9, adult; N39.0 Urinary tract infection, site not specified; E87.21 Acute metabolic acidosis; L03.116 Cellulitis of left lower limb; I89.0 Lymphedema, not elsewhere classified; R53.1 Weakness; R62.7 Adult failure to thrive; N18.30 Chronic kidney disease, stage 3 unspecified; F41.9 Anxiety disorder, unspecified; G89.29 Other chronic pain; F41.0 Panic disorder [episodic paroxysmal anxiety]; G47.00 Insomnia, unspecified; G25.81 Restless legs syndrome; R41.89 Other symptoms and signs involving cognitive functions and awareness; B96.20 Unspecified Escherichia coli [E. coli] as the cause of diseases classified elsewhere; F11.90 Opioid use, unspecified, uncomplicated; K59.00 Constipation, unspecified; Z91.199 Patient's noncompliance with other medical treatment and regimen due to unspecified reason; Z91.148 Patient's other noncompliance with medication regimen for other reason; M25.562 Pain in left knee; R32 Unspecified urinary incontinence; R15.9 Full incontinence of feces; L24.A2 Irritant contact dermatitis due to fecal, urinary or dual incontinence; Z74.01 Bed confinement status; M54.9 Dorsalgia, unspecified; B95.7 Other staphylococcus as the cause of diseases classified elsewhere; B96.4 Proteus (mirabilis) (morganii) as the cause of diseases classified elsewhere; B95.1 Streptococcus, group B, as the cause of diseases classified elsewhere; Z71.3 Dietary counseling and surveillance; Z53.29 Procedure and treatment not carried out because of patient's decision for other reasons
CPT/HCPCS: 36415; 36600; 51701; 51702; 71045; 73552; 73590; 73700; 80048; 80069; 80076; 81001; 82803; 83605; 83735; 83880; 84484; 85025; 85027; 86140; 87070; 87086; 87186; 87205; 93005; 93306; 93308; 93321; 93325; 94660; 94761; 97110; 97162; 97166; 97530; 97535; 99284; 99285; J0571; A0425; A0427; A0428; A9270; G0378; J1335; J1650; J1885; J1940; J2060; J2270; J2405